=== PATIENT | female | born 1950 | race Caucasian/White ===

== ENCOUNTER → 2017-03-30 09:50 | Outpatient (CLI) | payer OTHER, SELFPAY | PROVIDERS: Family Provider Family Medicine; PCP Family Medicine; Visit Provider Urology | DX: N39.41 Urge incontinence (principal) ==

== ENCOUNTER → 2017-05-13 11:08 | Outpatient (CLI) | payer OTHER, SELFPAY ==
--- NOTE | 2017-05-13 13:35 | STRESSREP ---
Stress Test Report Treadmill EKG: Resting EKG: Normal sinus rhythm, normal axis, normal intervals, no evidence of previous myocardial infarction. Mill EKG: Patient exercised according to a Sriram protocol for 3 minutes and 0 seconds achieving a maximum workload of 4.60 Mets. Resting heart rate was initially 88 beats a minute and yee to a maximum of 1 5 5 bpm which represents 99% of the maximal age-predicted heart rate. Resting blood pressure was 140/84 and yee to maximum of 184/110. Test was terminated due to severe dyspnea. During exercise the patient's heart rate increased as expected. The patient developed dynamic downsloping inferolateral ST segment depression which is suspicious for ischemia. During recovery she developed inferolateral T-wave inversion which continued into 8 minutes into recovery. Rare PVC during exercise. Conclusions: Abnormal adequate treadmill EKG. Positive for ischemia by EKG criteria. Very poor exercise capacity for age. Test terminated due to severe dyspnea. Hypertensive blood pressure response to exercise. No anginal symptoms noted. Rare PVCs noted. Recommend clinical correlation or alternative mode of testing with imaging agent if indicated. Patient tolerated procedure well.
== END ==
PROVIDERS: Family Provider Family Medicine; PCP Family Medicine; Visit Provider Family Medicine
DX: R06.09 Other forms of dyspnea (principal); R06.02 Shortness of breath
CPT/HCPCS: 93017

== ENCOUNTER → 2017-05-17 12:26 | Outpatient (CLI) | payer OTHER, SELFPAY ==
--- NOTE | 2017-05-17 12:29 | RAD_ITS ---
STUDY: X-RAY CHEST REASON FOR EXAM: Female, 66 years old. Shortness of breath TECHNIQUE: Frontal and lateral views of the chest COMPARISON: None. FINDINGS: The lungs are clear. There are no pleural effusions. There is no pneumothorax. The heart is normal in size. The visualized osseous structures are within normal limits. RAD/Chest PA and Lateral IMPRESSION: No acute thoracic pathology. Electronically Signed: Stas Han, at 16:54 EDT Tel , Service support ,
[2017-05-17 13:28] LABS: Absolute Lymphocyte Count 1.06 X10^3/ul (0.83-4.51); Absolute Neutrophil Count 4.1 X10^3/uL (2.0-7.7); Basophil# 0.02 X10^3/uL; Basophil% 0.3 % (0-1); Eosinophil# 0.11 X10^3/uL; Eosinophils% 1.9 % (0-5); Hematocrit 39.8 % (37-47); Lymphocyte # 1.06 X10^3/ul (4.0); Lymphocyte % 18.5 % (19-41); Mean Corp Hgb Conc 32.7 g/gl (32-36); Mean Platelet Vol. 9.6 fl (6.2-12.0); Neutrophil # 4.13 X10^3/uL (2.7-7.7); Neutrophil % 72.1 % (47-70); Platelet Count 344 K/mm3 (150-450); RBC Distribution Width CV 12.8 % (11.6-14.6); Red Blood Count 4.06 M/mm3 (4.2-5.4); White Blood Count 5.7 K/mm3 (4.4-11.0)
[2017-05-17 13:29] LABS: POSITIVE COUNT NO; POSITIVE DIFFERENTIAL NO; POSITIVE MORPHOLOGY NO
[2017-05-17 13:32] LABS: Prothrombin Time (Protime)PT. 12.8 SECONDS (11.7-14.9)
[2017-05-17 13:33] LABS: Partial Thromboplast Time 27.1 Seconds (24.1-36.2)
[2017-05-17 13:45] LABS: Anion Gap 6 (5-15); BUN 19 mg/dL (7-18); BUN/Creat Ratio 21.2 RATIO (10-20); Calcium,Total 8.5 mg/dL (8.5-10.1); Chloride 100 mmol/L (98-107); EST Glomerular Filtration Rate 67 mL/min (>60); Est Glom Filt Rate - Afr Amer 81 mL/min (>60); Glucose 103 mg/dL (74-106); Potassium 4.2 mmol/L (3.5-5.1); Sodium Level 135 mmol/L (136-145)
== END ==
PROVIDERS: Family Provider Family Medicine; PCP Family Medicine; Visit Provider Internal Medicine Cardiovascular Disease
DX: R06.09 Other forms of dyspnea (principal); R94.39 Abnormal result of other cardiovascular function study; I10 Essential (primary) hypertension; E66.01 Morbid (severe) obesity due to excess calories; R94.31 Abnormal electrocardiogram [ECG] [EKG]; R06.02 Shortness of breath
CPT/HCPCS: 36415; 71046; 80048; 85025; 85610; 85730

== ENCOUNTER → 2017-05-18 10:46 | Outpatient (CLI) | payer OTHER, SELFPAY ==
--- NOTE | 2017-05-18 10:47 | ECHOD_ITS ---
Reason For Study: CHES PAIN Procedure This was a 2D Doppler, Color Flow transthoracic echocardiogram. Contrast injection was performed. Exam performed in department. Left Ventricle Normal size and thickness. The estimated ejection fraction is 40-45 %. Stage 1 diastolic dysfunction. Anterio-Basal: Mildly hypokinetic. Basal anteroseptal: Mildly hypokinetic. Mid- Anterior : Mildly hypokinetic. There are regional wall motion abnormalities as specified. Right Ventricle Normal size and thickness. Normal systolic function. Atria The left atrium is moderately enlarged. Normal right atrium. Normal atrial septum. Mitral Valve The mitral valve is structurally normal. No prolapse or stenosis seen. Tricuspid Valve Normal tricuspid valve. Trivial tricuspid valve insufficiency. Right ventricular systolic pressure estimated to be 26 mmHg. Aortic Valve Trisinus/trileaflet aortic valve. Pulmonic Valve Normal pulmonic valve. Trivial pulmonic valve insufficiency. Great Vessels Normal aortic root. Normal arch. Normal inferior vena cava. Inferior vena cava collapse with sniff. Pericardium/Pleural No pericardial effusion. Medication 22 gauge I.V. with prn adaptor inserted into right arm. Diluted definity 3ml given slow IV push to enhance endocardial definition. MMode/2D Measurements & Calculations LVIDd: 3.9 cm IVSd: 1.2 cm Ao root diam: 3.8 cm LVIDs: 3.1 cm LVPWd: 1.1 cm LA dimension: 3.9 cm RVDd: 3.7 cm FS: 19.6 % LAV(MOD-bp): 57.7 ml LVAd ap4: 39.5 cm2 SV(MOD-sp4): 66.9 ml LAV(MOD-bp) Indexed: 25.0 ml/m2 EDV(MOD-sp4): 138.5 ml LAV(MOD-sp2): 47.8 ml EDV(sp4-el): 145.1 ml LAV(MOD-sp4): 69.4 ml LVAs ap4: 27.1 cm2 ESV(MOD-sp4): 71.6 ml ESV(sp4-el): 73.4 ml EF(MOD-sp4): 48.3 % EF(sp4-el): 49.5 % SV(sp4-el): 71.8 ml LA A4 area: 22.0 cm2 RA A4 area: 13.0 cm2 Doppler Measurements & Calculations MV E max danyel: 66.5 cm/sec Ao V2 max: 132.5 cm/sec LV V1 max: 73.8 cm/sec MV A max danyel: 123.2 cm/sec Ao max P.0 mmHg LV V1 max P.2 mmHg MV E/A: 0.54 PA V2 max: 91.8 cm/sec TR max danyel: 230.9 cm/sec TR max P.3 mmHg Interpretation Summary The estimated ejection fraction is 40-45 %. Stage 1 diastolic dysfunction. There are regional wall motion abnormalities as specified. The left atrium is moderately enlarged. Trivial tricuspid valve insufficiency. Right ventricular systolic pressure estimated to be 26 mmHg. The study was technically difficult. There is no comparison study available. Contrast injection was performed. Ordering Physician: Ulises So Referring Physician: MATT URRUTIA Performed By: Ely Hager, SONYA, RVT
== END ==
PROVIDERS: Family Provider Family Medicine; PCP Family Medicine; Visit Provider Internal Medicine Cardiovascular Disease
DX: R94.31 Abnormal electrocardiogram [ECG] [EKG] (principal); I10 Essential (primary) hypertension; E66.01 Morbid (severe) obesity due to excess calories; R06.09 Other forms of dyspnea; R94.39 Abnormal result of other cardiovascular function study; I07.1 Rheumatic tricuspid insufficiency; G47.10 Hypersomnia, unspecified; K21.9 Gastro-esophageal reflux disease without esophagitis; R06.83 Snoring; R06.81 Apnea, not elsewhere classified
CPT/HCPCS: 93306; 95810; Q9957; A4216; C8929

== ENCOUNTER → 2017-05-19 06:44 | Day surgery (SDC) | payer OTHER, SELFPAY ==
[2017-05-18 09:44] VITALS: BMI 48.2
--- NOTE | 2017-05-19 08:30 | CL.D_ITS ---
Patient Name: NIA KIRAN Study Date: 05/19/2017 Performing: Ulises So MD Ht: 64.96 inches 165 cm : 1950 Wt: 291.01 lbs 132 kg Age: 66 Gender: female BSA: 2.32 PROCEDURE(S) PERFORMED RN90-LHV/LHC/COR/LV CLINICAL PROFILE AND INDICATIONS INDICATIONS: Unstable Angina Stress/Imaging Standard Exercise Stress Test: Yes Result: Positive Intermediate Risk Angina Classification Anginal Classification w/in 2 Weeks: CCS III CAD Presentations: Unstable angina. Comorbidities/Risk Factors: Hypertension CONCLUSIONS Normal coronary arteries Segmented LV systolic dysfunction- Mild The patient has normal pulmonary hemodynamics. RECOMMENDATIONS Management as per referring [employer] d/c plavix start exercise and weight loss program. Repeat echo in 6 months after exercise and BP control. DESCRIPTION OF PROCEDURE The patient arrived to the procedure lab. The risks and benefits of the procedure as well as a full d escription of our services here and current unavailability of surgical backup were fully explained to the patient and/or their significant other prior to the catheterization. The Timeout was completed, verifying the correct patient and procedure. The patient's procedural site was prepped and draped in the usual fashion. Local anesthetic was given subcutaneously to right groin region with Lidocaine 2%. Using a modified Seldinger technique, arterial access was obtained via the right femoral artery, a 4 Fr sheath was inserted Venous access was obtained via the right femoral vein, a 7Fr sheath was insert ed. A 7Fr thermal dilution catheter was inserted and right heart pressures were recorded, it was then advanced to PA position for cardiac outputs. Thermal dilution cardiac outputs were then recorded. O2 saturations were then obtained. The Thermal dilution catheter was then removed. Left Ventriculograph y was performed in ALVARADO projection using a 4 Fr. Pigtail catheter. LV to AO pullback pressures were th en recorded. Left Coronary Artery selective angiography was performed in multiple views using a 4 Fr. JL5 catheter. Right Coronary Artery selective angiography was then performed in multiple views using a 4 Fr. 3DRC catheter.The arterial sheath was pulled and manual compression applied until hemostasis is achieved. CORONARY ANGIOGRAPHY DOMINANCE: Co- Dominant LEFT HEART ASSESSMENT Left Ventricular Ejection Fraction: by LV Gram 50 % Anterior Hypokinesis - Mild Depressed Left Ventricular systolic function Normal Left Ventricular End Diastolic Pressure RIGHT HEART ASSESSMENT Thermal CO: 11.06 Thermal CI: 4.77 PW: 12/01 3 PA: 31/9 15 RV: 23/1 4 RA: 3/2 1 PVR: 87 SVR: 738 LEFT MAIN: Angiographically normal LEFT ANTERIOR DECENDING ARTERY: Angiographically normal CIRCUMFLEX ARTERY: Angiographically normal COMPLICATIONS No Complications PROCEDURE MEDICATIONS SUMMARY OF HEMODYNAMIC DATA Time AIR REST ECG 07:20:24 RA 3/ (1) SV 07:59:44 RV 23/1, 4 08:01:09 PW 12/01 (3) PV 08:01:46 PA 31/9 (15) PA 08:02:03 LV 140/-10, 3 08:07:48 LV 125/-11, 2 08:08:16 PW 11/10 (8) 08:08:16 LV 132/-13, 1 08:09:10 RV 24/-1, 2 08:09:10 LV 136/-12, 2 08:09:31 RV 25/2, 5 08:09:31 LV 136/-15, 3 08:10:41 LVp 140/-15, 2 08:10:46 AOp 134/76 (99) 08:10:51 AO 119/81 (103) SA 08:12:44 Type SV CO (l/m) CI (l/m/ HR Time AIR REST Thermal 124.30 11.06 4.77 89 07:20:24 Label % O2 Pres/Loc Time AIR REST AO 94 PV 08:16:34 PA 66 PA 08:16:46 Signed By Ulises So MD On 05/19/2017 08:30:01 Ulises So MD
[2017-05-19 10:51] LABS: Blood Gas Specimen Type VEN; VBG BASE EXCESS 3 mmol/L (-1.0-3.5); VBG Bicarbonate 28 mmol/L (22-26); VBG Oxygen Content 29 mmol/L (23-33); VBG PO2 33 mmHg (25-40); VBG SO2 63 % (50-70); VBG pCO2 44.3 mmHg (41-51)
[2017-05-19 10:51] LABS: Blood Gas Specimen Type VEN; VBG BASE EXCESS 2 mmol/L (-1.0-3.5); VBG Bicarbonate 27 mmol/L (22-26); VBG Oxygen Content 28 mmol/L (23-33); VBG PO2 37 mmHg (25-40); VBG SO2 70 % (50-70); VBG pCO2 42.9 mmHg (41-51)
[2017-05-19 10:51] LABS: Base Excess 2 mmol/L (-2 to +2); Bicarbonate 26.5 mmol/L (22-26); Blood Gas Specimen Type ART; PO2 71 mmHG (75-100); SO2 94 % (95-99); Total Carbon Dioxide 28 mmol/L; pH 7.43 (7.35-7.45)
== END ==
PROVIDERS: Family Provider Family Medicine; PCP Family Medicine; Visit Provider Internal Medicine Cardiovascular Disease
DX: R94.39 Abnormal result of other cardiovascular function study (principal); Z71.3 Dietary counseling and surveillance; I10 Essential (primary) hypertension; Z79.899 Other long term (current) drug therapy; Z79.82 Long term (current) use of aspirin; Z79.02 Long term (current) use of antithrombotics/antiplatelets; E66.01 Morbid (severe) obesity due to excess calories; M19.90 Unspecified osteoarthritis, unspecified site; K21.9 Gastro-esophageal reflux disease without esophagitis; F41.9 Anxiety disorder, unspecified; Z68.42 Body mass index [BMI] 45.0-49.9, adult
CPT/HCPCS: 82803; 93460; J7040; C1751; C1769; C1894; Q9967

== ENCOUNTER → 2017-06-15 22:47 | Outpatient (CLI) | payer OTHER, SELFPAY | PROVIDERS: Family Provider Family Medicine; PCP Family Medicine; Visit Provider Family Medicine | DX: G47.33 Obstructive sleep apnea (adult) (pediatric) (principal) | CPT/HCPCS: 95811 ==

== ENCOUNTER → 2018-06-29 10:13 | Outpatient (CLI) | payer MEDICARE, OTHER, SELFPAY ==
[2017-05-18 09:44] VITALS: BMI 48.2
[2018-06-29 11:24] LABS: EXAGEN MAILED SPECIMEN
[2018-06-29 12:24] LABS: ALB/GLOB Ratio 1.1 RATIO (0.9-2.4); AST(SGOT) 18 U/L (15-37); Alanine Aminotransfer ALT/SGPT 28 U/L (13-56); Albumin, Serum 3.7 g/dL (3.2-5.0); Alkaline Phosphatase 84 U/L (45-117); Anion Gap 8 (5-15); BUN 27 mg/dL (7-18); BUN/Creat Ratio 25.2 RATIO (10-20); Calcium,Total 8.2 mg/dL (8.5-10.1); Chloride 99 mmol/L (98-107); Creatinine, Serum 1.07 mg/dL (0.55-1.02); EST Glomerular Filtration Rate 55 mL/min (>60); Est Glom Filt Rate - Afr Amer 66 mL/min (>60); Globulin 3.5 g/dL (2.2-4.2); Glucose 101 mg/dL (74-106); Potassium 4.4 mmol/L (3.5-5.1); Protein, Total 7.2 g/dL (6.4-8.2); Sodium Level 135 mmol/L (136-145)
[2018-06-29 12:27] LABS: Absolute Lymphocyte Count 0.76 X10^3/ul (0.83-4.51); Absolute Neutrophil Count 2.8 X10^3/uL (2.0-7.7); Basophil# 0.02 X10^3/uL; Basophil% 0.5 % (0-1); Eosinophil# 0.12 X10^3/uL; Hematocrit 37.2 % (37-47); Hemoglobin 11.9 g/dl (12.0-15.0); Lymphocyte # 0.76 X10^3/ul (4.0); Mean Corpuscular Hgb 31.2 pg (27.0-32.0); Mean Corpuscular Volume 97.4 fL (81-99); Mean Platelet Vol. 9.3 fl (6.2-12.0); Monocyte# 0.28 X10^3/uL; Neutrophil # 2.81 X10^3/uL (2.7-7.7); Neutrophil % 70.2 % (47-70); Platelet Count 339 K/mm3 (150-450); RBC Distribution Width CV 12.5 % (11.6-14.6); RBC Distribution Width SD 42.7 fl (35.1-43.9); Red Blood Count 3.82 M/mm3 (4.2-5.4)
[2018-06-29 12:37] LABS: Color, Urine Yellow (Yellow); Glucose, Dipstick Normal (Normal); Ketone-Dipstick Negative (Negative); Leukocyte Esterase-Dipstick 25 /ul (Negative); Nitrite-Dipstick Negative (Negative); Occult Blood-Urine Negative /ul (Negative); Protein-Dipstick Negative (Negative); Specific Gravity, Urine 1.015 (1.002-1.030); Urine Bilirubin Dipstick Negative (Negative); Urine Clarity Sl. Cloudy (Clear); Urine Urobilinogen 1 mg/dl (Normal)
[2018-06-29 12:41] LABS: Protein, Urine (Random) 6.8 mg/dL (<11.9); Protein:Creat Ratio 67 mg/g CRE (0-200)
[2018-06-29 12:57] LABS: POSITIVE COUNT NO; POSITIVE DIFFERENTIAL NO; POSITIVE MORPHOLOGY NO
[2018-07-01 12:57] LABS: HEPATITIS B SURFACE AG Negative (Negative); Hep B Surface Antibodies Non Reactive (.); Hep C Antibodies <0.1 s/co ratio (0.0-0.9)
== END ==
PROVIDERS: Family Provider Family Medicine; PCP Family Medicine; Referring Provider Internal Medicine Rheumatology; Visit Provider Internal Medicine Rheumatology
DX: M05.79 Rheumatoid arthritis with rheumatoid factor of multiple sites without organ or systems involvement (principal); R76.8 Other specified abnormal immunological findings in serum; M17.0 Bilateral primary osteoarthritis of knee; M21.40 Flat foot [pes planus] (acquired), unspecified foot; K44.9 Diaphragmatic hernia without obstruction or gangrene; I10 Essential (primary) hypertension; G47.33 Obstructive sleep apnea (adult) (pediatric); N32.81 Overactive bladder; K21.9 Gastro-esophageal reflux disease without esophagitis; F32.89 Other specified depressive episodes; F41.9 Anxiety disorder, unspecified
CPT/HCPCS: 36415; 80053; 81002; 82570; 84156; 85025; 86706; 86803; 87340

== ENCOUNTER → 2018-07-14 12:12 | Outpatient (CLI) | payer MEDICARE, OTHER, SELFPAY ==
[2017-05-18 09:44] VITALS: BMI 48.2
--- NOTE | 2018-07-14 12:17 | RAD_ITS ---
STUDY: X-RAY - LEFT FOOT CLINICAL: Female, 67 years old. Left foot pain TECHNIQUE: 3 view(s) of the foot. Weight-bearing COMPARISON: None. FINDINGS: No acute fracture or dislocation. Lisfranc interval appears intact. Mild age-related degenerative changes. Mild pes planus. Small plantar spur and posterior calcaneal enthesophyte. Possible partial talocalcaneal fusion. Tibiotalar degenerative changes. Minimal soft tissue swelling RAD/Foot min 3 Views IMPRESSION: As above Electronically Signed: Joel Delvalle DO at 10:47 EDT Tel , Service support ,
== END ==
PROVIDERS: Family Provider Family Medicine; PCP Family Medicine; Referring Provider Podiatrist; Visit Provider Podiatrist
DX: M19.90 Unspecified osteoarthritis, unspecified site (principal)
CPT/HCPCS: 73630

== ENCOUNTER → 2018-09-13 10:46 | Outpatient (CLI) | payer MEDICARE, OTHER, SELFPAY ==
[2017-05-18 09:44] VITALS: BMI 48.2
[2018-09-13 12:29] LABS: Absolute Lymphocyte Count 0.78 X10^3/uL (0.83-4.51); Absolute Neutrophil Count 4.3 X10^3/uL (2.0-7.7); Basophil# 0.03 X10^3/uL; Basophil% 0.5 % (0-1); Eosinophil# 0.09 X10^3/uL; Eosinophils% 1.6 % (0-5); Hematocrit 35.9 % (37-47); Lymphocyte # 0.78 X10^3/ul (4.0); Lymphocyte % 13.9 % (19-41); Mean Corp Hgb Conc 33.4 g/dL (32-36); Mean Corpuscular Hgb 33.5 pg (27.0-32.0); Mean Corpuscular Volume 100.3 fL (81-99); Monocyte# 0.35 X10^3/uL; Monocyte% 6.3 % (0-10); NRBC Flagged by Analyzer 0 % (0-5); Neutrophil # 4.32 X10^3/uL (2.7-7.7); Neutrophil % 77.2 % (47-70); Platelet Count 400 K/mm3 (150-450); RBC Distribution Width CV 12.7 % (11.6-14.6); RBC Distribution Width SD 45.3 fl (35.1-43.9); Red Blood Count 3.58 M/mm3 (4.2-5.4); White Blood Count 5.6 K/mm3 (4.4-11.0)
[2018-09-13 12:48] LABS: ALB/GLOB Ratio 0.8 RATIO (0.9-2.4); AST(SGOT) 11 U/L (15-37); Alanine Aminotransfer ALT/SGPT 24 U/L (13-56); Albumin, Serum 3.3 g/dL (3.2-5.0); Alkaline Phosphatase 93 U/L (45-117); Anion Gap 8 (5-15); BUN 21 mg/dL (7-18); BUN/Creat Ratio 23.4 RATIO (10-20); Calcium,Total 8.8 mg/dL (8.5-10.1); Chloride 99 mmol/L (98-107); EST Glomerular Filtration Rate 67 mL/min (>60); Est Glom Filt Rate - Afr Amer 81 mL/min (>60); Globulin 3.9 g/dL (2.2-4.2); Glucose 103 mg/dL (74-106); Potassium 4.3 mmol/L (3.5-5.1); Protein, Total 7.2 g/dL (6.4-8.2); Sodium Level 136 mmol/L (136-145)
== END ==
PROVIDERS: Family Provider Family Medicine; PCP Family Medicine; Referring Provider Internal Medicine Rheumatology; Visit Provider Internal Medicine Rheumatology
DX: M05.79 Rheumatoid arthritis with rheumatoid factor of multiple sites without organ or systems involvement (principal); M17.0 Bilateral primary osteoarthritis of knee
CPT/HCPCS: 36415; 80053; 85025

== ENCOUNTER → 2019-03-13 12:57 | Outpatient (CLI) | payer MEDICARE, OTHER, SELFPAY ==
[2017-05-18 09:44] VITALS: BMI 48.2
[2019-03-13 14:04] LABS: Absolute Lymphocyte Count 0.77 X10^3/uL (0.83-4.51); Absolute Neutrophil Count 3.9 X10^3/uL (2.0-7.7); Basophil# 0.03 X10^3/uL; Basophil% 0.6 % (0-1); Eosinophils% 1.9 % (0-5); Hematocrit 38.2 % (37-47); Hemoglobin 12.3 g/dL (12.0-15.0); Lymphocyte # 0.77 X10^3/ul (4.0); Lymphocyte % 14.5 % (19-41); Mean Corp Hgb Conc 32.2 g/dL (32-36); Mean Corpuscular Hgb 31.9 pg (27.0-32.0); Mean Platelet Vol. 8.7 fl (6.2-12.0); Monocyte# 0.45 X10^3/uL; Monocyte% 8.5 % (0-10); NRBC Flagged by Analyzer 0 % (0-5); Neutrophil # 3.93 X10^3/uL (2.7-7.7); Neutrophil % 73.9 % (47-70); Platelet Count 396 K/mm3 (150-450); RBC Distribution Width CV 13.7 % (11.6-14.6); RBC Distribution Width SD 48.5 fl (35.1-43.9); Red Blood Count 3.86 M/mm3 (4.2-5.4); White Blood Count 5.3 K/mm3 (4.4-11.0)
[2019-03-13 14:45] LABS: ALB/GLOB Ratio 0.9 RATIO (0.9-2.4); AST(SGOT) 15 U/L (15-37); Alanine Aminotransfer ALT/SGPT 25 U/L (13-56); Albumin, Serum 3.6 g/dL (3.2-5.0); Alkaline Phosphatase 87 U/L (45-117); Anion Gap 5 (5-15); BUN 19 mg/dL (7-18); BUN/Creat Ratio 20.5 RATIO (10-20); Chloride 101 mmol/L (98-107); Creatinine, Serum 0.93 mg/dL (0.55-1.02); EST Glomerular Filtration Rate 64 mL/min (>60); Est Glom Filt Rate - Afr Amer 78 mL/min (>60); Globulin 3.9 g/dL (2.2-4.2); Glucose 109 mg/dL (74-106); Potassium 4.2 mmol/L (3.5-5.1); Protein, Total 7.5 g/dL (6.4-8.2); Sodium Level 134 mmol/L (136-145)
== END ==
PROVIDERS: Family Provider Family Medicine; PCP Family Medicine; Referring Provider Internal Medicine Rheumatology; Visit Provider Internal Medicine Rheumatology
DX: M05.79 Rheumatoid arthritis with rheumatoid factor of multiple sites without organ or systems involvement (principal); M17.0 Bilateral primary osteoarthritis of knee; M21.40 Flat foot [pes planus] (acquired), unspecified foot; I10 Essential (primary) hypertension; G47.33 Obstructive sleep apnea (adult) (pediatric); N32.81 Overactive bladder; K44.9 Diaphragmatic hernia without obstruction or gangrene; K21.9 Gastro-esophageal reflux disease without esophagitis; F32.89 Other specified depressive episodes; F41.9 Anxiety disorder, unspecified; Z79.899 Other long term (current) drug therapy
CPT/HCPCS: 36415; 80053; 85025

== ENCOUNTER 2019-05-06 23:19 | Emergency (ER) | payer MEDICARE, OTHER, SELFPAY ==
[2019-05-06 23:20] VITALS: BP 115/67; PULSE 103; RESP 18; TEMP 37.1; O2SAT 95; BMI 48.9
--- NOTE | 2019-05-06 23:33 | CT_ITS ---
STUDY: CT BRAIN WITHOUT CONTRAST REASON FOR EXAM: Female, 68 years old. RIGHT SIDE POSTERIOR HEAD PAIN SINCE WEDNESDAY. NKI RADIATION DOSAGE (If Supplied By Facility): CTDIvol = ( 44.99 ) mGy, DLP = ( 832.67 ) mGycm TECHNIQUE: Transaxial CT imaging of the brain was performed without administration of intravenous contrast material. Individualized dose optimization techniques were used for this CT. COMPARISON: No relevant priors. FINDINGS: Normal soft tissue structures. Normal calvarium. Normal size ventricles and extra-axial spaces for the patient''s age. Normal white matter tracts of the cerebral hemispheres. Normal basal ganglia and thalami. Normal brainstem. Normal cerebellum. There is atherosclerotic calcification of the cavernous carotid arteries. There is no intracranial hemorrhage. There are no findings of an acute ischemic infarction. Normal visualized paranasal sinuses. CT/Brain/Head without Contrast IMPRESSION: Mild chronic involutional changes of the brain. No demonstrated acute intracranial process. Electronically Signed: Humberto Gomez MD at 0:29 EST , Service support ,
--- NOTE | 2019-05-06 23:35 | ED.VISSUMM ---
- ER Visit Summary Date of Service: 05/06/19 Chief Complaint: Right posterior scalp head pain History of Present Illness: The patient is a 68 F who hypertension. And multiple prior surgeries. Patient states on Wednesday since then she has had intermittent right posterior scalp pain. It is a sharp shooting pain. She denies any prior history. No trauma. She is on no blood thinners other than aspirin. She denies any neurological symptoms. States she is never had anything like this before. She saw her primary care physician on Wednesday. Without a specific diagnosis. Physical Examination: Older female no acute distress vital signs are stable afebrile. H EENT exam unremarkable. Pupils round reactive laser motions are intact. No facial droop. Normal speech. There is no signs of trauma to her face or scalp. The pain is in the right posterior scalp but there is no abnormality. There is no redness or swelling. No signs of trauma. No inflammation. No reproducible pain. Neck nontender no lymphadenopathy. No meningismus. Lungs clear to auscultation. Heart regular rhythm no murmur. Abdomen soft nontender normal bowel sounds no peritoneal signs. Extremities moves all 4. Neurovascular intact. 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 Dorsi plantarflexion intact. Fingertip to nose within normal limits. Neurologic exam normal NIH is 0. Test Results: CAT scan of the brain as read by the radiologist and reviewed by me shows no acute abnormality. Emergency Department Course and Treatment: Patient's right posterior scalp pain appears to be from a neuralgia. It comes and goes. Her neurologic exam is normal. Repeat exam at 00 30 8 AM patient is doing well. No change. She and I discussed her CAT scan results. She will be started on prednisone and follow-up with her primary care physician. Treatment Plan: Continue her Ultram for pain. Follow-up with primary care physician. Disposition: Discharge Impression: Acute scalp and head pain of uncertain etiology Suspect acute neuralgia This note was generated with [employer] dictation software. It may contain incorrect words, spelling, and punctuation that were not noted in review of the chart prior to signing ED Disposition - Plan for ED Patient: Disposition: Home or Assisted Living Instructions: HEADACHE, Unspecified Referrals: Braulio Ca MD [Primary Care Provider] - 3-5 Days if not improving Additional Instructions: This most likely is inflammation of a nerve in your posterior scalp. Follow-up with your doctor if not improving then start you on a medication called Neurontin.
--- NOTE | 2019-05-06 23:37 | ED.DEP ---
ED Disposition - Plan for ED Patient: Disposition: Home or Assisted Living Instructions: HEADACHE, Unspecified Referrals: Braulio Ca MD [Primary Care Provider] - 3-5 Days if not improving Additional Instructions: This most likely is inflammation of a nerve in your posterior scalp. Follow-up with your doctor if not improving then start you on a medication called Neurontin.
--- NOTE | 2019-05-07 00:41 | ED.DEP ---
ED Disposition - Plan for ED Patient: Disposition: Home or Assisted Living Prescriptions: Prednisone [Deltasone] 40 mg PO DAILY 7 Days tab Prescription Printed Referrals: Braulio Ca MD [Primary Care Provider] - 3-5 Days if not improving Additional Instructions: This most likely is inflammation of a nerve in your posterior scalp. Follow-up with your doctor if not improving on the prednisone you may have to start another medication such as Neurontin.
[2019-05-07] MEDS: predniSONE 20 MG Tablet 60 MG PO (00:48)
== END 2019-05-07 00:50 | disposition home or self-care (01) ==
LOC: ED 23:55
PROVIDERS: Emergency Provider Emergency Medicine; PCP Family Medicine
DX: M79.2 Neuralgia and neuritis, unspecified (principal); I10 Essential (primary) hypertension; Z79.82 Long term (current) use of aspirin; Z79.899 Other long term (current) drug therapy
CPT/HCPCS: 70450; 99283

== ENCOUNTER → 2019-05-29 14:52 | Outpatient (CLI) | payer MEDICARE, OTHER, SELFPAY ==
[2019-05-06 23:20] VITALS: BMI 48.9
[2019-05-29 17:24] LABS: Absolute Lymphocyte Count 0.75 X10^3/uL (0.83-4.51); Absolute Neutrophil Count 4.3 X10^3/uL (2.0-7.7); Basophil# 0.03 X10^3/uL; Basophil% 0.5 % (0-1); Eosinophil# 0.11 X10^3/uL; Hematocrit 35.1 % (37-47); Hemoglobin 11.9 g/dL (12.0-15.0); Lymphocyte # 0.75 X10^3/ul (4.0); Lymphocyte % 13.5 % (19-41); Mean Corp Hgb Conc 33.9 g/dL (32-36); Mean Corpuscular Hgb 33.6 pg (27.0-32.0); Mean Corpuscular Volume 99.2 fL (81-99); Mean Platelet Vol. 9.3 fl (6.2-12.0); Monocyte# 0.38 X10^3/uL; Monocyte% 6.8 % (0-10); NRBC Flagged by Analyzer 0 % (0-5); Neutrophil # 4.26 X10^3/uL (2.7-7.7); Neutrophil % 76.8 % (47-70); Platelet Count 346 K/mm3 (150-450); RBC Distribution Width CV 14.7 % (11.6-14.6); RBC Distribution Width SD 52.7 fl (35.1-43.9); Red Blood Count 3.54 M/mm3 (4.2-5.4); White Blood Count 5.6 K/mm3 (4.4-11.0)
[2019-05-29 17:41] LABS: ALB/GLOB Ratio 0.9 RATIO (0.9-2.4); AST(SGOT) 16 U/L (15-37); Alanine Aminotransfer ALT/SGPT 29 U/L (13-56); Albumin, Serum 3.4 g/dL (3.2-5.0); Alkaline Phosphatase 93 U/L (45-117); Anion Gap 6 (5-15); BUN 14 mg/dL (7-18); BUN/Creat Ratio 14.3 RATIO (10-20); Calcium,Total 8.5 mg/dL (8.5-10.1); Chloride 99 mmol/L (98-107); Creatinine, Serum 0.98 mg/dL (0.55-1.02); EST Glomerular Filtration Rate 61 mL/min (>60); Est Glom Filt Rate - Afr Amer 73 mL/min (>60); Globulin 3.8 g/dL (2.2-4.2); Glucose 116 mg/dL (74-106); Potassium 3.6 mmol/L (3.5-5.1); Protein, Total 7.2 g/dL (6.4-8.2); Sodium Level 134 mmol/L (136-145)
== END ==
PROVIDERS: PCP Family Medicine; Referring Provider Internal Medicine Rheumatology; Visit Provider Internal Medicine Rheumatology
DX: M05.79 Rheumatoid arthritis with rheumatoid factor of multiple sites without organ or systems involvement (principal); M17.0 Bilateral primary osteoarthritis of knee; M21.40 Flat foot [pes planus] (acquired), unspecified foot; I10 Essential (primary) hypertension; K21.9 Gastro-esophageal reflux disease without esophagitis; K44.9 Diaphragmatic hernia without obstruction or gangrene; N32.81 Overactive bladder; G47.33 Obstructive sleep apnea (adult) (pediatric); F32.89 Other specified depressive episodes; F41.9 Anxiety disorder, unspecified; Z79.899 Other long term (current) drug therapy
CPT/HCPCS: 36415; 80053; 85025

== ENCOUNTER → 2019-08-22 09:40 | Outpatient (CLI) | payer MEDICARE, OTHER, SELFPAY ==
[2019-08-22 12:44] LABS: Absolute Lymphocyte Count 0.94 X10^3/uL (0.83-4.51); Absolute Neutrophil Count 3.2 X10^3/uL (2.0-7.7); Basophil# 0.03 X10^3/uL; Basophil% 0.6 % (0-1); Eosinophil# 0.09 X10^3/uL; Eosinophils% 1.9 % (0-5); Hematocrit 38.8 % (37-47); Hemoglobin 12.3 g/dL (12.0-15.0); Lymphocyte # 0.94 X10^3/ul (4.0); Lymphocyte % 20.3 % (19-41); Mean Corp Hgb Conc 31.7 g/dL (32-36); Mean Corpuscular Hgb 32.5 pg (27.0-32.0); Mean Corpuscular Volume 102.4 fL (81-99); Monocyte# 0.39 X10^3/uL; Monocyte% 8.4 % (0-10); NRBC Flagged by Analyzer 0 % (0-5); Neutrophil # 3.15 X10^3/uL (2.7-7.7); Neutrophil % 68.4 % (47-70); Platelet Count 382 K/mm3 (150-450); RBC Distribution Width CV 14.4 % (11.6-14.6); RBC Distribution Width SD 53.6 fl (35.1-43.9); Red Blood Count 3.79 M/mm3 (4.2-5.4); White Blood Count 4.6 K/mm3 (4.4-11.0)
[2019-08-22 13:00] LABS: ALB/GLOB Ratio 0.9 RATIO (0.9-2.4); AST(SGOT) 17 U/L (15-37); Alanine Aminotransfer ALT/SGPT 34 U/L (13-56); Albumin, Serum 3.4 g/dL (3.2-5.0); Alkaline Phosphatase 89 U/L (45-117); Anion Gap 8 (5-15); BUN 19 mg/dL (7-18); BUN/Creat Ratio 21.1 RATIO (10-20); Calcium,Total 8.8 mg/dL (8.5-10.1); Chloride 102 mmol/L (98-107); EST Glomerular Filtration Rate 67 mL/min (>60); Est Glom Filt Rate - Afr Amer 81 mL/min (>60); Globulin 3.9 g/dL (2.2-4.2); Glucose 104 mg/dL (74-106); Protein, Total 7.3 g/dL (6.4-8.2); Sodium Level 137 mmol/L (136-145)
== END ==
PROVIDERS: PCP Family Medicine; Referring Provider Internal Medicine Rheumatology; Visit Provider Internal Medicine Rheumatology
DX: M05.79 Rheumatoid arthritis with rheumatoid factor of multiple sites without organ or systems involvement (principal); M17.0 Bilateral primary osteoarthritis of knee; M21.40 Flat foot [pes planus] (acquired), unspecified foot; Z79.899 Other long term (current) drug therapy
CPT/HCPCS: 36415; 80053; 85025

== ENCOUNTER → 2019-10-17 10:46 | Outpatient (CLI) | payer MEDICARE, OTHER, SELFPAY ==
[2019-10-17 12:30] LABS: Absolute Lymphocyte Count 1.18 X10^3/uL (0.83-4.51); Absolute Neutrophil Count 5.6 X10^3/uL (2.0-7.7); Basophil# 0.02 X10^3/uL; Basophil% 0.3 % (0-1); Eosinophils% 1.4 % (0-5); Hematocrit 38.2 % (37-47); Hemoglobin 12.4 g/dL (12.0-15.0); Lymphocyte # 1.18 X10^3/ul (4.0); Lymphocyte % 15.9 % (19-41); Mean Corp Hgb Conc 32.5 g/dL (32-36); Mean Corpuscular Hgb 32.4 pg (27.0-32.0); Mean Corpuscular Volume 99.7 fL (81-99); Mean Platelet Vol. 9.3 fl (6.2-12.0); Monocyte% 6.8 % (0-10); NRBC Flagged by Analyzer 0 % (0-5); Neutrophil # 5.57 X10^3/uL (2.7-7.7); Neutrophil % 75.2 % (47-70); Platelet Count 391 K/mm3 (150-450); RBC Distribution Width CV 13.7 % (11.6-14.6); RBC Distribution Width SD 49.4 fl (35.1-43.9); Red Blood Count 3.83 M/mm3 (4.2-5.4); White Blood Count 7.4 K/mm3 (4.4-11.0)
[2019-10-17 12:48] LABS: ALB/GLOB Ratio 0.9 RATIO (0.9-2.4); AST(SGOT) 16 U/L (15-37); Alanine Aminotransfer ALT/SGPT 28 U/L (13-56); Albumin, Serum 3.6 g/dL (3.2-5.0); Alkaline Phosphatase 84 U/L (45-117); Anion Gap 5 (5-15); BUN 17 mg/dL (7-18); BUN/Creat Ratio 19.9 RATIO (10-20); Calcium,Total 8.8 mg/dL (8.5-10.1); Chloride 100 mmol/L (98-107); Creatinine, Serum 0.85 mg/dL (0.55-1.02); EST Glomerular Filtration Rate 71 mL/min (>60); Est Glom Filt Rate - Afr Amer 86 mL/min (>60); Globulin 3.8 g/dL (2.2-4.2); Glucose 103 mg/dL (74-106); Potassium 3.9 mmol/L (3.5-5.1); Protein, Total 7.4 g/dL (6.4-8.2); Sodium Level 136 mmol/L (136-145)
== END ==
PROVIDERS: PCP Family Medicine; Referring Provider Internal Medicine Rheumatology; Visit Provider Internal Medicine Rheumatology
DX: M05.79 Rheumatoid arthritis with rheumatoid factor of multiple sites without organ or systems involvement (principal); M17.0 Bilateral primary osteoarthritis of knee; M21.40 Flat foot [pes planus] (acquired), unspecified foot; K21.9 Gastro-esophageal reflux disease without esophagitis; K44.9 Diaphragmatic hernia without obstruction or gangrene; N32.81 Overactive bladder; I10 Essential (primary) hypertension; G47.33 Obstructive sleep apnea (adult) (pediatric); F32.89 Other specified depressive episodes; F41.9 Anxiety disorder, unspecified; Z79.899 Other long term (current) drug therapy
CPT/HCPCS: 36415; 80053; 85025

== ENCOUNTER → 2020-01-01 11:04 | Outpatient (CLI) | payer MEDICARE, OTHER, SELFPAY ==
[2020-01-01 12:30] LABS: Absolute Lymphocyte Count 1.26 X10^3/uL (0.83-4.51); Absolute Neutrophil Count 5.6 X10^3/uL (2.0-7.7); Basophil# 0.04 X10^3/uL; Basophil% 0.5 % (0-1); Eosinophil# 0.11 X10^3/uL; Eosinophils% 1.5 % (0-5); Hematocrit 39.3 % (37-47); Hemoglobin 12.6 g/dL (12.0-15.0); Lymphocyte # 1.26 X10^3/ul (4.0); Lymphocyte % 16.8 % (19-41); Mean Corp Hgb Conc 32.1 g/dL (32-36); Mean Corpuscular Hgb 32.9 pg (27.0-32.0); Mean Corpuscular Volume 102.6 fL (81-99); Mean Platelet Vol. 9.1 fl (6.2-12.0); Monocyte# 0.49 X10^3/uL; Monocyte% 6.5 % (0-10); NRBC Flagged by Analyzer 0 % (0-5); Neutrophil # 5.57 X10^3/uL (2.7-7.7); Neutrophil % 74.2 % (47-70); Platelet Count 345 K/mm3 (150-450); RBC Distribution Width CV 14.3 % (11.6-14.6); RBC Distribution Width SD 52.8 fl (35.1-43.9); Red Blood Count 3.83 M/mm3 (4.2-5.4); White Blood Count 7.5 K/mm3 (4.4-11.0)
[2020-01-01 12:59] LABS: ALB/GLOB Ratio 0.9 RATIO (0.9-2.4); AST(SGOT) 15 U/L (15-37); Alanine Aminotransfer ALT/SGPT 27 U/L (13-56); Albumin, Serum 3.4 g/dL (3.2-5.0); Alkaline Phosphatase 88 U/L (45-117); Anion Gap 6 (5-15); BUN 23 mg/dL (7-18); BUN/Creat Ratio 25.8 RATIO (10-20); Calcium,Total 8.6 mg/dL (8.5-10.1); Chloride 100 mmol/L (98-107); Creatinine, Serum 0.89 mg/dL (0.55-1.02); EST Glomerular Filtration Rate 67 mL/min (>60); Est Glom Filt Rate - Afr Amer 81 mL/min (>60); Globulin 3.7 g/dL (2.2-4.2); Glucose 91 mg/dL (74-106); Protein, Total 7.1 g/dL (6.4-8.2); Sodium Level 134 mmol/L (136-145)
== END ==
PROVIDERS: PCP Family Medicine; Referring Provider Internal Medicine Rheumatology; Visit Provider Internal Medicine Rheumatology
DX: M05.79 Rheumatoid arthritis with rheumatoid factor of multiple sites without organ or systems involvement (principal); M15.9 Polyosteoarthritis, unspecified; M21.40 Flat foot [pes planus] (acquired), unspecified foot; Z79.899 Other long term (current) drug therapy
CPT/HCPCS: 36415; 80053; 85025

== ENCOUNTER → 2020-03-21 09:41 | Outpatient (CLI) | payer MEDICARE, OTHER, SELFPAY ==
[2020-03-21 12:17] LABS: Absolute Lymphocyte Count 1.04 X10^3/uL (0.83-4.51); Absolute Neutrophil Count 5.1 X10^3/uL (2.0-7.7); Basophil# 0.03 X10^3/uL; Basophil% 0.4 % (0-1); Eosinophil# 0.14 X10^3/uL; Hemoglobin 12.8 g/dL (12.0-15.0); Lymphocyte # 1.04 X10^3/ul (4.0); Mean Corp Hgb Conc 31.2 g/dL (32-36); Mean Corpuscular Volume 102.5 fL (81-99); Monocyte# 0.59 X10^3/uL; Monocyte% 8.5 % (0-10); NRBC Flagged by Analyzer 0 % (0-5); Neutrophil # 5.11 X10^3/uL (2.7-7.7); Neutrophil % 73.7 % (47-70); Platelet Count 452 K/mm3 (150-450); RBC Distribution Width CV 13.9 % (11.6-14.6); RBC Distribution Width SD 52.5 fl (35.1-43.9); White Blood Count 6.9 K/mm3 (4.4-11.0)
[2020-03-21 12:50] LABS: ALB/GLOB Ratio 0.9 RATIO (0.9-2.4); AST(SGOT) 17 U/L (15-37); Alanine Aminotransfer ALT/SGPT 33 U/L (13-56); Albumin, Serum 3.6 g/dL (3.2-5.0); Alkaline Phosphatase 92 U/L (45-117); Anion Gap 7 (5-15); BUN 20 mg/dL (7-18); BUN/Creat Ratio 21.2 RATIO (10-20); Calcium,Total 8.8 mg/dL (8.5-10.1); Chloride 104 mmol/L (98-107); Creatinine, Serum 0.94 mg/dL (0.55-1.02); EST Glomerular Filtration Rate 63 mL/min (>60); Est Glom Filt Rate - Afr Amer 76 mL/min (>60); Globulin 3.9 g/dL (2.2-4.2); Glucose 91 mg/dL (74-106); Potassium 3.5 mmol/L (3.5-5.1); Protein, Total 7.5 g/dL (6.4-8.2); Sodium Level 138 mmol/L (136-145)
== END ==
PROVIDERS: PCP Family Medicine; Referring Provider Internal Medicine Rheumatology; Visit Provider Internal Medicine Rheumatology
DX: M05.79 Rheumatoid arthritis with rheumatoid factor of multiple sites without organ or systems involvement (principal); M17.0 Bilateral primary osteoarthritis of knee; M21.40 Flat foot [pes planus] (acquired), unspecified foot; I10 Essential (primary) hypertension; N32.81 Overactive bladder; G47.33 Obstructive sleep apnea (adult) (pediatric); K21.9 Gastro-esophageal reflux disease without esophagitis; K44.9 Diaphragmatic hernia without obstruction or gangrene; F32.89 Other specified depressive episodes; F41.9 Anxiety disorder, unspecified; Z79.899 Other long term (current) drug therapy
CPT/HCPCS: 36415; 80053; 85025

== ENCOUNTER 2020-05-10 10:13 | Outpatient (RCR) | payer MEDICARE, OTHER, SELFPAY ==
[2020-05-10] MEDS: COVID-19 VACC, MRNA(PFIZER)/PF 30 MCG/0.3 ML SYRINGE IM (16:04)
[2020-05-31] MEDS: COVID-19 VACC, MRNA(PFIZER)/PF 30 MCG/0.3 ML SYRINGE IM (15:46)
== END 2020-08-06 23:59 ==
LOC: IMMUN 10:13
PROVIDERS: PCP Family Medicine; Visit Provider Family Medicine
DX: Z23 Encounter for immunization (principal)
CPT/HCPCS: 0001A; 0002A; 91300

== ENCOUNTER → 2021-07-10 | Outpatient (CLI) | payer MEDICARE, OTHER, SELFPAY ==
[2021-07-10 15:57] LABS: Absolute Lymphocyte Count 1.07 X10^3/uL (0.83-4.51); Absolute Neutrophil Count 2.6 X10^3/uL (2.0-7.7); Basophil# 0.04 X10^3/uL; Eosinophil# 0.08 X10^3/uL; Eosinophils% 1.9 % (0-5); Hematocrit 38.7 % (37-47); Hemoglobin 12.6 g/dL (12.0-15.0); Lymphocyte # 1.07 X10^3/ul (0.83-4.51); Mean Corp Hgb Conc 32.6 g/dL (32-36); Mean Corpuscular Hgb 31.9 pg (27.0-32.0); Monocyte# 0.34 X10^3/uL; Monocyte% 8.3 % (0-10); NRBC Flagged by Analyzer 0 % (0-5); Neutrophil # 2.58 X10^3/uL (2.7-7.7); Neutrophil % 62.6 % (47-70); Platelet Count 357 K/mm3 (150-450); RBC Distribution Width CV 12.7 % (11.6-14.6); RBC Distribution Width SD 45.9 fl (35.1-43.9); Red Blood Count 3.95 M/mm3 (4.2-5.4); White Blood Count 4.1 K/mm3 (4.4-11.0)
== END | disposition home or self-care (01) ==
PROVIDERS: PCP Family Medicine; Visit Provider Internal Medicine Rheumatology
DX: D72.819 Decreased white blood cell count, unspecified (principal)
CPT/HCPCS: 36415; 85025

== ENCOUNTER → 2022-01-16 | Outpatient (CLI) | payer MEDICARE, OTHER, SELFPAY ==
--- NOTE | 2022-01-16 11:30 | MRI_ITS ---
STUDY: MRI RIGHT SHOULDER REASON FOR EXAM: Female, 71 years old. Right shoulder pain. TECHNIQUE: Standardized fat and water weighted pulse sequences were obtained in all 3 orthogonal planes. COMPARISON: None. FINDINGS: Supraspinatus tendinosis with articular surface fraying without a full-thickness tear (coronal series 5 images 11-15). Infraspinatus tendinosis without a full-thickness tear (coronal series 5 images 6-10). Subscapularis tendinosis with thickening and increased signal intensity without a full-thickness tear (axial series 3 images 8-13). Normal teres minor tendon. Normal supraspinatus muscle. Normal infraspinatus muscle. Normal subscapularis muscle. Normal teres minor muscle. Mild arthrosis of the glenohumeral joint with a small glenohumeral joint effusion (axial series 3 images 8-14). Cystic change in the anterior and lateral aspect of the head (axial series 3 image 8). Normal biceps labral complex. Normal intracapsular long biceps tendon. Nondisplaced superior labral tear (coronal series 5 images 9-13). Nondisplaced tear of the posterior and inferior glenoid labrum with a intra-labral cyst (axial series 3 image 13). Normal capsulo- ligamentous complex. Normal rotator interval. AC joint hypertrophy with AC joint effusion and substantial narrowing of the subacromial space (coronal series 5 images 8-15). There is a Type II morphology (curved), with a neutral orientation. Small amount of fluid in the subacromial-subdeltoid bursa (coronal series 5 images 8-12). Normal visualized coracohumeral and coracoacromial ligaments. Normal quadrilateral space. Normal axillary space. Normal deltoid muscle. Normal trapezius muscle. MRI/Upper Ext Joint Only(Routine) IMPRESSION: Supraspinatus, infraspinatus and subscapularis tendinosis. No full-thickness tear. Mild arthrosis of the glenohumeral joint. Cystic change in the humeral head. Tears of the superior and inferior glenoid labrum as described. AC joint hypertrophy with AC joint effusion and moderate to marked narrowing of the subacromial space. Glenohumeral joint effusion with fluid in the subacromial-subdeltoid bursa. Electronically Signed: Phillip Dasilva, at 13:21 EST ,
== END | disposition home or self-care (01) ==
LOC: MRI 10:59
PROVIDERS: PCP Family Medicine; Referring Provider Orthopaedic Surgery; Visit Provider Orthopaedic Surgery
DX: S43.421A Sprain of right rotator cuff capsule, initial encounter (principal); M25.511 Pain in right shoulder; M62.81 Muscle weakness (generalized)
CPT/HCPCS: 73221

== ENCOUNTER → 2023-09-22 | Outpatient (CLI) | payer MEDICARE, OTHER, SELFPAY ==
--- NOTE | 2023-09-22 14:00 | NEURO ---
NCS and/or EMG Patient Report Ordering Doctor: Braulio Ca DATE OF SERVICE: 09/22/23 Clinical Summary: 72 year old female with symptoms of numbness/tingling in the medial digits of both hands. Nerve Conduction Studies Summary: The left ulnar-D5 SNAP distal latency was prolonged. Otherwise, nerve conduction studies were within normal ranges. Needle Examination Summary: Needle examination of select muscles of the bilateral upper extremities was normal. Impression: There is no electrodiagnostic evidence of a right/left ulnar mononeuropathy or median mononeuropathy at the wrist (carpal tunnel syndrome). Multi Select Codes Neurology Neurology Interp Codes: 55888-24 Musc test done w/n test comp (interp) (2) and 63716-22 Nrv cndj test 11-12 studies (interp)
== END | disposition home or self-care (01) ==
PROVIDERS: PCP Family Medicine; Referring Provider Family Medicine; Visit Provider Family Medicine
DX: R20.0 Anesthesia of skin (principal); R20.2 Paresthesia of skin
CPT/HCPCS: 95886; 95912

== ENCOUNTER → 2024-05-23 | Outpatient (CLI) | payer MEDICARE, OTHER, SELFPAY ==
--- NOTE | 2024-05-23 10:54 | BD_ITS ---
EXAM: DEXA examination lumbar spine and both hips. CLINICAL HISTORY: 73-year-old female who is postmenopausal. COMPARISON: None TECHNIQUE: DEXA examination of lumbar spine and both hips. FINDINGS: DEXA examination of lumbar spine shows a bone mineral density to measure 1.362 grams/centimeter squared. T-score measures 2.9 and Z-score measures 5.1. DEXA examination left femoral neck measures 0.791 grams/centimeter squared. T- score measures -0.5 and Z-score measures 1.4. Bone mineral density of the total left hip measures 1.002 grams/centimeter squared. T-score measures 0.5 and Z-score measures 2.1. DEXA examination of the right femoral neck shows the bone mineral density to measure 0.704 grams/centimeter squared. T-score measures -1.3 and Z-score measures 0.6. Total bone mineral density of the right hip measures 0.950 grams/centimeter squared. T-score measures 0.1 and Z-score measures 1.7. FRAX: The 10 year fracture risk index for major osteoporotic fracture is 19% and for a hip fracture is 4.8%. BD/Dexa Bone Density Study IMPRESSION: Patient demonstrates osteopenia of the right hip. Patient demonstrates normal bone mineral density of the lumbar spine and left hip Reading Location: [id number]
== END | disposition home or self-care (01) ==
PROVIDERS: PCP Family Medicine; Referring Provider Student in an Organized Health Care Education/Training Program; Visit Provider Student in an Organized Health Care Education/Training Program
DX: M81.0 Age-related osteoporosis without current pathological fracture (principal)
CPT/HCPCS: 77080

== ENCOUNTER → 2024-05-29 | Outpatient (CLI) | payer MEDICARE, OTHER, SELFPAY ==
--- NOTE | 2024-05-29 08:34 | MRI_ITS ---
EXAM: MRI lumbar spine without contrast. CLINICAL HISTORY: Back pain. COMPARISON: Lumbar spine radiograph 05/02/2019 TECHNIQUE: Multiplanar multisequence MRI of the lumbar spine without contrast. FINDINGS: Moderate dextroscoliosis. Lumbar lordosis is maintained. Grade 1 anterolisthesis of L5 on S1 vertebral body heights are maintained. Multilevel loss of disc space most prominent at L2-L3 and L3-L4.. Heterogenous marrow signal, without suspicious replacement. There is no abnormal bone STIR signal. The included distal thoracic cord is normal in caliber and signal. The conus medullaris terminates at L1 level. There is no clumping of the nerve roots. Advanced multilevel degenerative changes of the lumbar spine, including endplate remodeling, facet degenerative changes, disc bulges and ligamentum flavum hypertrophy. L1/2: Disc bulge and facet degenerative changes with mild canal stenosis. Mild bilateral neural foraminal narrowing.. L2/3: Circumferential disc bulge, [id number]-right facet degenerative changes and ligamentum flavum hypertrophy with moderate canal stenosis. Mild bilateral neural foraminal narrowing.. L3/4: Disc bulge asymmetric to the left, ligamentum flavum hypertrophy and [id number]-right facet degenerative changes moderate canal stenosis. Left subarticular recess narrowing. Moderate right and mild left neural foraminal narrowing.. L4/5: Circumferential disc bulge, ligamentum flavum hypertrophy and facet degenerative changes with severe canal stenosis. Bilateral subarticular recess narrowing. Mild bilateral neural foraminal narrowing. L5/S1: Circumferential disc bulge, ligamentum flavum hypertrophy and facet degenerative changes with severe canal stenosis. Bilateral subarticular recess narrowing. Severe bilateral neural foraminal narrowing, with mass effect on the bilateral exiting L5 nerve roots.. Diffuse fatty atrophy of the bilateral paraspinal musculature MRI/Spine Lumbar (Routine) IMPRESSION: Advanced multilevel degenerative changes of the lumbar spine, with up to severe canal stenosis and neural foraminal narrowing, most prominent at L5-S1. Multilevel subarticular recess narrowing. Reading Location: [id number]
== END | disposition home or self-care (01) ==
LOC: MRI 11:55
PROVIDERS: PCP Family Medicine; Referring Provider Student in an Organized Health Care Education/Training Program; Visit Provider Student in an Organized Health Care Education/Training Program
DX: M54.50 Low back pain, unspecified (principal)
CPT/HCPCS: 72148

== ENCOUNTER 2024-11-20 12:00 | Outpatient (CLI) | payer MEDICARE, OTHER, SELFPAY | END 2024-11-20 23:59 | disposition home or self-care (01) | LOC: SL 12:08 | PROVIDERS: PCP Family Medicine; Visit Provider Family Medicine | DX: Z00.00 Encounter for general adult medical examination without abnormal findings (principal) ==

== ENCOUNTER → 2025-01-04 | Outpatient (CLI) | payer MEDICARE, OTHER, SELFPAY | END | disposition home or self-care (01) | LOC: SL 13:18 | PROVIDERS: PCP Family Medicine; Referring Provider Nurse Practitioner Adult Health; Visit Provider Nurse Practitioner Adult Health | DX: G47.33 Obstructive sleep apnea (adult) (pediatric) (principal) | CPT/HCPCS: 95806 ==

== ENCOUNTER 2025-02-14 11:07 | Observation (INO) | payer MEDICARE, OTHER, SELFPAY ==
--- NOTE | 2025-01-29 15:16 | PAT.ANESEVAL ---
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 When Was Last Pacemaker Check QUESTION #4 FULL TEXT: You/Your Family Experience fever (hyperthermia) with Anesthesia Last Oral Intake Last Oral intake: Last Oral Intake NPO since Meds taken in AM with sips of water? Meds patient instructed to take am of surgery PONV PONV - environmental designer: PONV - environmental designer Female Yes 01/29/25 09:26 HX of Motion Sickness Yes 01/29/25 09:26 HX of N/V After Surgery No 01/29/25 09:26 Non-Smoker Yes 01/29/25 09:26 Duration of Surgery greater Yes 01/29/25 09:26 than 60 minutes Number of Risk Factors 4 01/29/25 09:26 PONV Score Severe Risk 01/29/25 09:26 Height & Weight Height & Weight: Anesthesia: Height & Weight Height 5 ft 3 in 10/31/24 11:30 Respiratory Assessment Respiratory Assessment - environmental designer: Respiratory Tract Infection Hx - environmental designer Hx Respiratory Tract Infection No 01/29/25 09:26 STOP Sleep Apnea STOP Sleep Apnea - environmental designer: STOP Sleep Apnea - environmental designer Hx Hypertension Yes: CONTROLLED WITH MED 01/29/25 09:26 Hx Sleep Apnea Yes 01/29/25 09:26 CPAP Yes 01/29/25 09:26 BIPAP No 01/29/25 09:26 Do you snore loudly (louder than talking or can be heard Do you often feel tired/ fatigued/ sleepy during daytime? Has anyone observed you stop breathing during sleep? STOP Results Positive 01/29/25 09:26 QUESTION #5 FULL TEXT : Do you snore loudly (louder than talking or can be heard through closed doors)? 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 Specify any problems Hx of Preganancy in last 3 No 01/29/25 09:26 Months Nurse Filling Out Transfusion DSCHRIBER 01/29/25 09:26 & Questions: Date: 01/29/25 01/29/25 09:26 Time: :01/29/25 09:26 Patient unable to answer at this time (ie. confused, unrespo /Reproduction History /Reproductive History - environmental designer: /Reproductive Hx- environmental designer Hx Now No 01/29/25 09:26 Gestational Age (in weeks): EDC: Hx Hx Para Hx Section SAB No 01/29/25 09:26 Does the father of the baby or his family experience fever w Father of the baby Malignant Hypertension history comment [facility] Medical History (Updated 01/29/25 @ 09:40 by Danette Young) Wears glasses Cancer Post-menopausal History of steroid therapy Rheumatoid arthritis Bladder disease Anemia High cholesterol Easy bruising Restless legs Back pain Non-smoker CPAP (continuous positive airway pressure) dependence History of pain when walking History of edema History of echocardiogram History of stress test Hypertension Osteoarthritis Morbid obesity due to excess calories Hiatal hernia GERD (gastroesophageal reflux disease) Anxiety Home Medications ?Medication ?Instructions ?Recorded ?Last Taken ?Type ascorbic acid (vitamin C) 500 mg 500 mg PO DAILY@0800 09/16/15 Unknown History tablet cyclobenzaprine 10 mg tablet 10 mg PO QHS 09/16/15 Unknown History fluoxetine 40 mg capsule 40 mg PO DAILY 09/16/15 Unknown History lisinopril 10 mg tablet 10 mg PO DAILY 09/16/15 05/19/17 History multivitamin with folic acid 400 1 tab PO DAILY 09/16/15 Unknown History mcg tablet zolpidem 10 mg tablet 10 mg PO QHS 09/16/15 Unknown History aspirin 81 mg tablet,delayed 81 mg PO DAILY 05/17/17 05/19/17 History release (Adult Low Dose Aspirin) cholecalciferol (vitamin D3) 10 400 unit PO QDAY 05/17/17 Unknown History mcg (400 unit) capsule glucosamine-chondroitin 250 mg-200 1 tab PO QAM 05/17/17 Unknown History mg tablet (Osteo Bi-Flex) acetaminophen 650 mg 650 mg PO Q12H 05/01/24 Unknown History tablet,extended release (Tylenol Arthritis Pain) hydroxychloroquine 200 mg tablet 200 mg PO BID 05/01/24 Unknown History meloxicam 15 mg tablet 15 mg PO QDAY 05/01/24 Unknown History mirabegron 50 mg tablet,extended 50 mg PO QDAY 05/01/24 Unknown History release 24 hr omeprazole 40 mg capsule,delayed 40 mg PO QDAY 05/01/24 Unknown History release spironolactone 25 mg tablet 25 mg PO QDAY 05/01/24 Unknown History calcium carbonate 600 mg PO DAILY 01/29/25 Unknown History conjugated estrogens 0.625 mg/gram 0.625 mg vaginal SUWE 01/29/25 Unknown History vaginal cream montelukast 10 mg tablet 10 mg PO QHS 01/29/25 Unknown History (Singulair) pregabalin 50 mg capsule 50 mg PO TID Spinal Stenosis 01/29/25 Unknown History Allergy/AdvReac Type Severity Reaction Status Date / Time poison seema extract Allergy Rash Verified 01/29/25 09:17 acetaminophen (From Percocet) AdvReac Itching Verified 01/29/25 09:17 codeine AdvReac Itching Verified 01/29/25 09:17 hydrocodone bitartrate (From AdvReac Itching Verified 01/29/25 09:17 Vicodin) hydromorphone HCl (From AdvReac Itching Verified 01/29/25 09:17 Dilaudid) meperidine (From Demerol) AdvReac Itching Verified 01/29/25 09:17 morphine AdvReac Itching Verified 01/29/25 09:17 oxycodone HCl (From Percocet) AdvReac Itching Verified 01/29/25 09:17 Family History Mother CAD (coronary artery disease) CAD in her 80's AAA Diabetes Brother Colon cancer Daughter Blood disorder Von Willinberg's Disease and Thrombocytosis Father Cancer Lung Cancer Surgical History (Updated 01/29/25 @ 09:40 by Danette Young) History of repair of rectocele Hx of colonoscopy Hx of right cataract extraction Hx of left cataract extraction History of cardiac catheterization History of thumb surgery History of thumb surgery Hx of total knee arthroplasty Hx of total knee arthroplasty History of repair of rotator cuff H/O total vaginal hysterectomy History of bunionectomy of left great toe left ankle surgery Social History Smoking Status: Never smoker alcohol intake: current Audit: Pertinent Findings Pertinent Findings EKG Perinent findings: EKG 01/24/2025. Sinus rhythm with occasional premature ventricular contractions. Incomplete left bundle branch block. Heart catheterization pertinent findings: Heart cath 05/19/2017. Normal coronary arteries. Segmented LV systolic dysfunction mild. The patient has normal pulmonary hemodynamics. Recommendation Anesthesia Recommendation Anesthesia recommendation: OPTIMIZED for anesthesia
[2025-02-02 15:13] LABS: Partial Thromboplast Time 26.3 Seconds (24.1-36.2); Prothrombin Time (Protime)PT. 12.9 SECONDS (11.7-14.9)
[2025-02-14] VITALS (18 sets, daily range): BP systolic 98–153; BP diastolic 62–84; PULSE 78–87; RESP 12–16; TEMP 36.2–37; O2SAT 93–100; BMI 52.0; BMI 53.4
--- OUTSIDE RECORDS SUMMARY | 2025-02-14 05:23 | XMS RPT_ITS | CCD ---
Author Organization [facility] Providers Care Etymology Teacher Name Role Phone FRED WHITTAKER Admitting Unavailable FRED WHITTAKER Attending Unavailable BRAULIO URRUTIA Primary Care Unavailable LIVIA BANKS Consulting Unavailable BENJI RUFFIN CNP Admitting Unavailab BENJI Wiseman CNP Attending Unavailab BRAULIO Galindo Primary Care Unavailable Braulio Urrutia MD Primary Care Provider DR. YAMILKA MAHONEY DO Attending Unavail able GHADA LEGER, BRAULIO Mcgregor Primary Care Unavailabl e BRAULIO URRUTIA Primary Care Unavailable BRAULIO URRUTIA Referring Unavailable BRAULIO URRUTIA Primary Care Unavailable Braulio Urrutia MD Primary Care Provider [phone] Silvia FENCE MAKER.MARINE EQUIPMENT PRESERVATION INSPECTOR, Jenni Unavailable Margaret Lomeli PA-C Unavailable DAVE KIM Attending Unavailable BRAULIO URRUTIA Primary Care Unavailable WENDY MARTINEZ Referring Unavailable Dr. Braulio Urrutia MD Referring Provider Lacey Beckford Attending Provider Dr. Qasim Acevedo MD Attending Provider Lacey Beckford Referring Provider Dr. Braulio Urrutia MD Primary Care Provider [phone] Braulio Urrutia MD Primary Care Provider BRAULIO URRUTIA MD Primary Care Physician Silvia FENCE MAKER.TEETEE, Jenni Unavailable Margaret Lomeli PA-C Unavailable Javier PAEZ Dr. Jamaal Attending Provider TONA PAEZ, DARRELL Cowan Attending Unavail able GHADA PAEZ, BRAULIO A Primary Care Unavailable Ghada PAEZ, Dr. Ramsey Primary Care Physician Ghada PAEZ, Dr. Ramsey Referring Provider Javier PAEZ, Dr. Hinton Attending Physician [phone] Ghada PAEZ, Dr. Ramsey Attending Physician GHADA, BRAULIO A Referring Unavailable GHADA, BRAULIO A Primary Care Unavailable JENNI STAHL Attending Unavailable GHADA, BRAULIO A Primary Care Unavailable RUT GUTIERREZ Attending Unavailable GHADA, BRAULIO A Primary Care Unavailable GHADA, BRAULIO A Referring Unavailable LJ PAZ Referring Unavailable GHADA, BRAULIO A Primary Care Unavailable GHADA, BRAULIO A Primary Care Unavailable GHADA, BRAULIO A Primary Care Unavailable SANDRA ESPINOZA Referring Unavailable GHADA, BRAULIO A Referring Unavailable GHADA, BRAULIO A Primary Care Unavailable GHADA, BRAULIO A Referring Unavailable GHADA, BRAULIO A Primary Care Unavailable GHADA, BRAULIO A Primary Care Unavailable GHADA, BRAULIO A Attending Unavailable GHADA, BRAULIO A Primary Care Unavailable YEN RAHMAN Attending Unavailable SELF Referring Unavailable JENNI STAHL Attending Unavailable GHADA, BRAULIO A Primary Care Unavailable GHADA, BRAULIO A Referring Unavailable GHADA, BRAULIO A Primary Care Unavailable Edil, Lacey Attending Unavailable Ghaad, Braulio Primary Care Unavailable Ghada, Braulio Referring Unavailable Ghada, Braulio Primary Care Unavailable Ghada, Braulio Referring Unavailable Javier Jamaal Attending Unavailable Edil, Lacey Attending Unavailable Ghada, Braulio Referring Unavailable Ghada, Braulio Primary Care Unavailable Herrera, Jamaal Admitting Unavailable Herrera, Jamaal Attending Unavailable Javier Jamaal Attending Unavailable Ghada, Braulio Primary Care Unavailable Herrera, Jamaal Admitting Unavailable Ghada, Braulio Attending Unavailable Ghada, Braulio Primary Care Unavailable Edil, Lacey Attending Unavailable Edil, Lacey Referring Unavailable Ghada, Braulio Primary Care Unavailable Edil, Lacey Attending Unavailable Edil, Lacey Referring Unavailable Ghada, Braulio Primary Care Unavailable Ghada, Braulio Primary Care Unavailable Rut Gutierrez NP Attending Unavailable Rut Gutierrez NP Referring Unavailable Qasim Acevedo Attending Unavailable Braulio Urrutia Primary Care Unavailable Brauilo Urrutia Referring Unavailable Azucena Vasquez Attending Unavailable Allergies Allergy Classification Reported Allergen(s) Allergy Type Date of Onset Reaction(s) Facility Acetaminophen / HYDROcodone (1 source) Acetaminophen / HYDROcodone Drug Allergy 5 Unknown [facility] Acetaminophen / oxyCODONE (1 source) Acetaminophen / oxyCODONE Drug Allergy 6 Unknown [facility] Opioid Agonists (3 sources) Meperidine Drug Allergy 9 Itching, Rash [facility] POISON MICHELLE EXTRACT (1 source) POISON MICHELLE EXTRACT Drug Allergy 3 Swelling, Itching, Other: See Comments [facility] (1 source) Acetaminophen / HYDROcodone Drug Allergy [facility] Repository (1 source) Acetaminophen / oxyCODONE Drug Allergy [facility] Repository (1 source) HYDROmorphone Drug Allergy [facility] Repository (1 source) Meperidine Drug Allergy [facility] Repository (5 sources) Morphine; Translations: [MORPHINE] Drug Allergy 9 [facility] Repository (6 sources) Acetaminophen Drug Allergy 0 Itching [facility] (6 sources) Codeine Drug Allergy 0 Itching [facility] (7 sources) HYDROcodone; Translations: [hydrocodone bitartrate] Drug Allergy 0 Itching [facility] (7 sources) HYDROmorphone; Translations: [hydromorphone HCl] Drug Allergy 0 Itching [facility] (7 sources) Meperidine; Translations: [meperidine] Drug Allergy 0 Itching [facility] (20 sources) Morphine; Translations: [morphine] Drug Allergy 9 Rash [facility] Work Phone: (7 sources) oxyCODONE; Translations: [oxycodone HCl] Drug Allergy 0 Itching [facility] (20 sources) poison michelle; Translations: [POISON MICHELLE] Allergy to substance 3 Swelling, Itching, Other: See Comments [facility] Work Phone: (5 sources) POISON MICHELLE EXTRACT Drug Allergy 2 Rash [facility] Comment on above: RASH/SWELLING (20 sources) Acetaminophen / HYDROcodone; Translations: [HYDROCODONE-ACET AMINOPHEN] Drug Allergy 5 Unknown [facility] Work Phone: (20 sources) Acetaminophen / oxyCODONE; Translations: [OXYCODONE-ACETAM INOPHEN] Drug Allergy 6 Unknown [facility] Work Phone: (20 sources) HYDROmorphone; Translations: [HYDROMORPHONE (BULK)] Drug Allergy 0 Itching [facility] Work Phone: (20 sources) Meperidine; Translations: [MEPERIDINE (PF)] Drug Allergy 9 Itching [facility] Work Phone: (1 source) HYDROmorphone; Translations: [hydromorphone] Drug Allergy [facility] (1 source) Acetaminophen Drug Allergy 5 [facility] Repository (1 source) Codeine Drug Allergy 5 [facility] Repository (1 source) Meperidine Drug Allergy 5 [facility] Repository (1 source) Morphine Drug Allergy 5 [facility] Repository (1 source) poison michelle extract Drug allergy (disorder) 5 [facility] Repository Medications Current Medications Medication Drug Class(es) Dates Sig (Normalized) Sig (Original) 8 hr acetaminophen 650 mg extended release oral tablet (20 sources) Start: 05-01-2024 take 1 tablet by mouth every twelve hours take 1 tablet by mikael th every eight hours as needed acetaminophen (TYLENOL ARTHRITIS PAIN) 6 50 mg CR tablet Take 650 mg by mouth every 8 hours as needed. Active Comment on above: Take 650 mg by mouth every 8 hours as needed. amoxicillin 500 mg oral capsule (20 sources) Penicillin-class Antibacterial Start: 0 amoxicillin (POLYMOX, AMOXIL) 500 mg capsule Take 4 capsules by mouth as needed. Before dental procedures. 4 capsule 3 12/20/2019 Active Comment on above: Take 4 capsules by m out as needed. Before dental procedures. ascorbic acid 500 mg oral tablet (20 sources) Vitamin C Start: take 1 tablet by mouth once daily Start: 03-12-2008 take [id number] 333 capsule by mouth once daily ascorbic acid(VITAMIN C 500 MG SR CAP) Take 1,000 mg by mouth once daily. Last dose 06/10 0 03/12/2008 Active Start: 03-12-2008 ascorbic acid( VITAMIN C 500 MG SR CAP) Take by mouth. Last dose 06/10 0 03/12/2008 Active Comment on above: Take one(1) tablet d aily. Take by mouth. Last dose 06/10 Aspirin (7 sources) Platelet Aggregation Inhibitor, Nonsteroidal Anti-inflammatory Drug Start: 06-27-2024 aspirin 0 Refill(s) Start Date: 06/27/24 Status: Ordered Repeat number: 1 Start: 05-17-2017 calcium acetate 667 mg oral tablet (2 sources) Start: 06-06-2024 take 1 tablet by mouth once cholecalciferol 0.01 mg oral capsule (6 sources) Vitamin D Start: 05-17-2017 take 1 capsule by mouth once daily chondroitin sulfates 200 mg / glucosamine hydrochloride 250 mg oral tablet (6 sources) Start: 05-17-2017 cyclobenzaprine (20 sources) Muscle Relaxant Start: 06-27-2024 Flexeril use cyclobenzaprine Oral, 0 Refill(s) Start Date: 06/27/24 Status: Ordered Repeat number: 1 Start: 09-06-2023 cyclobenzaprin e (FLEXERIL) 10 mg tablet Take once a day as needed for pain. 7 tablet 0 09/06/2023 Active Start: 09-16-2015 End: 03-05-2024 take 1 tablet by mouth at bedtime Comment on above: Take once a day as n eeded for pain. Take one a day as ne eded for pain. docusate sodium 100 mg oral capsule (20 sources) Start: 05-06-2006 COLACE 100 MG CAP Take by mouth every morning. 0 05/06/2006 Active Comment on above: Take one(1) tablet d aily. Take by mouth every morning. estrogens, conjugated (half-way) 0.625 mg oral tablet (20 sources) Estrogen Start: 05-01-2024 take 1 tablet by mouth once daily Start: 06-12-2020 End: 08-10-2024 take 1 tablet by mouth two times weekly estrogens conjugated (PREMARIN) 0.625 mg tablet Indications: Symptomatic menopausal or female climacteric states Take 1 tablet by mouth two times a week. 24 tablet 1 08/10/2024 Active Comment on above: Take 1 tablet by mikael th two times a week. FLUoxetine 40 mg oral capsule (20 sources) Serotonin Reuptake Inhibitor Start: 06-27-2024 PROzac Oral, qDay, 0 Refill(s) Start Date: 06/27/24 Status: Ordered Repeat number: 1 Start: 09-16-2015 End: 08-10-2024 take 1 capsule by mouth once daily Comment on above: Take 1 capsule by mo [facility] once daily. GLUCOSAMINE HCL/CHONDR PACHECO A NA (OSTEO BI-FLEX ORAL) (20 sources) take [id number] 3 dose by mouth once daily GLUCOSAMINE HCL/CHONDR PACHECO A NA (OSTEO BI-FLEX ORAL) Take by mouth once daily. Last dose 06/10 Active take [id number] 333 dose by mouth once daily GLUCOSAMINE HCL/CHONDR PCAHECO A NA (OSTEO BI-FLEX ORAL) Take by mouth once daily. Last dose 06/10 0 Active GLUCOSAMINE HCL/ CHONDR PACHECO A NA (OSTEO BI-FLEX ORAL) Take by mouth. 0 Active Comment on above: Take by mouth. Take by mouth once d aily. Last dose 06/10 hydroxychloroquine sulfate 200 mg oral tablet (20 sources) Antimalarial, Antirheumatic Agent Start: 06-13-19 End: 08-11-19 take 1 tablet by mouth once daily Comment on above: Take 1 tablet by mikael th twice daily. Per rheumatology lisinopril 10 mg oral tablet (20 sources) Angiotensin Converting Enzyme Inhibitor Start: 06-28-19 lisinopril Oral, qDay, 0 Refill(s) Start Date: 06/27/24 Status: Ordered Repeat number: 1 Start: 09-16-2015 End: 08-10-2024 take 1 tablet by mouth once daily Comment on above: Take 1 tablet by mikael th once daily. LOW-DOSE ASPIRIN ORAL (20 sources) take [id number] dose by mouth once daily LOW-DOSE ASPIRIN ORAL Take 81 mg by mouth once daily. Last dose 06/16 Active take [id number] 222 dose by mouth once daily LOW-DOSE ASPIRIN ORAL Take 81 mg by mouth once daily. Last dose 06/16 0 Active LOW-DOSE ASPIRIN ORAL Take by mouth. 0 Active Comment on above: Take by mouth. Take 81 mg by mouth once daily. Last dose 06/16 magnesium carb,citrate,oxide (MAGNESIUM COMPLEX ORAL) (20 sources) magnesium carb,c itrate,oxide (MAGNESIUM COMPLEX ORAL) Take by mouth. Taking 500 mg magnesium Active magnesium carb,c itrate,oxide (MAGNESIUM COMPLEX ORAL) Take by mouth. Taking 500 mg magnesium 0 Active Comment on above: Take by mouth. Takin g 500 mg magnesium melatonin 10 mg oral capsule (20 sources) melatonin 10 mg cap Take by mouth as directed. Active Comment on above: Take by mouth as dir ected. meloxicam 15 mg oral tablet (20 sources) Nonsteroidal Anti-inflammatory Drug Start: 05-01-2024 take 1 tablet by mouth once daily take [id number] 222 tablet by mouth once daily meloxicam (MOBIC) 15 mg tablet Take 15 mg by mouth once daily. Last dose 06/16 Active take 1 tablet by mouth once abhi y meloxicam (MOBIC) 15 mg tablet Take 15 mg by mouth once daily. 0 Active Comment on above: Take 15 mg by mouth once daily. Take 15 mg by mouth once daily. Last dose 06/16 24 hr mirabegron 50 mg extended release oral tablet (20 sources) beta3-Adrenergic Agonist Start: 05-01-2024 take 1 tablet by mouth once daily Comment on above: Take by mouth. Take by mouth every morning. montelukast 10 mg oral tablet (20 sources) Leukotriene Receptor Antagonist Start: 06-27-2024 Singulair qDay, 0 Refill(s) Start Date: 06/27/24 Status: Ordered Repeat number: 1 Start: 02-25-2017 End: 08-10-2024 take 1 tablet by mouth once daily Montelukast 10 MG tablet Discontinued 10 mg PO DAILY February 25, 2017 1:00am May 01, 2024 2:36pm Comment on above: Take 1 tablet by mikael th daily at bedtime. Multivitamin With Folic Acid (2 sources) Start: 6 take 1 tablet by mouth once daily Multivitamin With Folic Acid Active 1 TABLET PO DAILY September 16, 2015 1:45pm Start: 09-16-2015 take 1 tablet by mikael th once daily Multivitamin With Folic Acid Active 1 TABLET PO DAILY September 15, 2015 11:00pm Multivitamin With Folic Acid 1 TABLET tablet (4 sources) Start: 09-16-2015 take 1 tablet by mikael th once daily Start: 09-16-2015 take 1 tablet by mikael th once daily Multivitamin With Folic Acid 1 TABLET tablet Active 1 {tbl} PO DAILY September 16, 2015 12:00am multivitamins(DAILY MULTIVIT MACIAS TAB) (20 sources) Start: 03-12-2008 multivitamins( DAILY MULTIVITAMIN TAB) Take 1 tablet by mouth once daily. Last dose 06/10 0 03/12/2008 Active Start: 03-12-2008 multivitamins( DAILY MULTIVITAMIN TAB) Take by mouth. Last dose 06/10 0 03/12/2008 Active Start: 03-12-2008 multivitamins( DAILY MULTIVITAMIN TAB) Take one(1) tablet daily. 0 03/12/2008 Active Comment on above: Take one(1) tablet d aily. Take by mouth. Last dose 06/10 omeprazole 40 mg delayed release oral capsule (20 sources) Proton Pump Inhibitor Start: 09-08-2023 End: 08-10-2024 take 1 capsule by mouth once daily Start: 06-22-2022 End: 09-06-2023 take 1 capsule by mouth once daily omeprazole (PRILOSEC) 40 mg capsule Take 1 capsule by mouth once daily. 7 capsule 0 09/06/2023 Active Start: 07-25-2021 End: 06-20-2022 take 1 capsule by mouth once daily omeprazole (PRILOSEC) 40 mg capsule Take 1 capsule by mouth once daily. 20 capsule 0 02/16/2022 05/26/2022 Discontinued (Other) Start: 12-20-2019 End: 06-12-2020 take 1 capsule by mouth once daily omeprazole (PRILOSEC) 40 mg capsule Take 1 capsule by mouth once daily. 90 capsule 1 12/20/2019 06/12/2020 Discontinued Start: 09-16-2015 End: 05-01-2024 take 2 capsules by mouth once daily Omeprazole 20 MG capsule Discontinued 40 mg PO DAILY September 16, 2015 12:00am May 01, 2024 2:36pm Start: 09-16-2015 take 40 mg by mouth once daily Omeprazole Active 40 MG PO DAILY September 16, 2015 1:45pm Comment on above: Take 1 capsule by [facility] once daily. polyethylene glycol 3350 255366 mg / potassium chloride 2970 mg / sodium bicarbonate 6740 mg / sodium chloride 5860 mg / sodium sulfate 89663 mg powder for oral solution (1 source) Osmotic Laxative Start: 11-15-2023 End: 11-15-2023 peg 3350-Electrolytes (GOLYTELY) 236-22.74-6.74 -5.86 gram suspension Indications: Family history of malignant neoplasm of gastrointestinal tract , Encounter for screening for malignant neoplasm of colon Take 4,000 mL by mouth one time only for 1 dose. Refer to printed prep instructions from your provider. 4000 mL 11/15/2023 11/15/2023 Active spironolactone 25 mg oral tablet (20 sources) Aldosterone Antagonist Start: 06-27-2024 spironolactone Oral, 0 Refill(s) Start Date: 06/27/24 Status: Ordered Repeat number: 1 Start: 09-08-2023 End: 08-10-2024 take 1 tablet by mouth once daily Start: 06-22-2022 End: 09-06-2023 take 1 tablet by mouth once daily spironolactone (ALDACTONE) 25 mg tablet Take 1 tablet by mouth once daily. 7 tablet 0 09/06/2023 Active Start: 07-25-2021 End: 06-20-2022 take 1 tablet by mouth once daily spironolactone (ALDACTONE) 25 mg tablet Take 1 tablet by mouth once daily. 20 tablet 0 02/16/2022 05/26/2022 Discontinued (Other) Comment on above: Take 1 tablet by [facility] once daily. WALKER ROLLATOR SEAT WITH 6 WHEELS - RED (20 sources) Start: 03-30-2023 WALKER ROLLATOR SEAT WITH 6 WHEELS - RED Indications: Rheumatoid arthritis involving multiple sites with positive rheumatoid factor (HCC) , Balance disorder , Osteoarthritis of multiple joints, unspecified osteoarthritis type , History of total bilateral knee replacement , Spinal stenosis of lumbar region with neurogenic claudication UAD 1 Each 03/30/2023 Active Start: 03-30-2023 WALKER ROLLATO R SEAT WITH 6 WHEELS - RED Indications: Rheumatoid arthritis involving multiple sites with positive rheumatoid factor (HCC) , Balance disorder , Osteoarthritis of multiple joints, unspecified osteoarthritis type , History of total bilateral knee replacement , Spinal stenosis of lumbar region with neurogenic claudication UAD 1 Each 0 03/30/2023 Active Comment on above: UAD zolpidem tartrate 10 mg oral tablet (20 sources) gamma-Aminobutyric Acid-ergic Agonist Start: 09-16-2015 End: 02-06-2025 take 1 tablet by mouth at bedtime Start: 09-16-2015 End: 08-05-2022 take 1 tablet by mouth at bedtime as needed zolpidem (AMBIEN) 10 mg Indications: Insomnia, unspecified type Take 1 tablet by mouth at bedtime as needed (insomnia) for up to 20 days. 20 tablet 0 02/16/2022 08/05/2022 Discontinued Comment on above: Take 1 tablet by mikael th at bedtime as needed for up to 180 days. For Insomnia. Take 1 tablet by mikael th at bedtime as needed (insomnia) for up to 20 days. Completed/Discontinued Medications Medication Drug Class(es) Dates Sig (Normalized) Sig (Original) calcium chloride 0.0014 meq/ml / potassium chloride 0.004 meq/ml / sodium chloride 0.103 meq/ml / sodium lactate 0.028 meq/ml injectable solution (1 source) Start: 02-25-2024 End: 02-25-2024 take 30 mL intravenously every hour 30 mL/hr, INTRAVENOUS, CONTINUOUS, Starting on Wed02/25/24 at 0930, Until Wed02/25/24 at 1134, Preprocedure cephalexin 250 mg oral capsule (6 sources) Cephalosporin Antibacterial Start: 09-16-2015 End: 05-16-2017 take 1 capsule by mouth every six hours Cephalexin 250 MG capsule Discontinued 250 mg PO EVERY 6 HOURS 39 0 September 16, 2015 12:00am May 16, 2017 5:02pm cetirizine hydrochloride 10 mg oral capsule (6 sources) Histamine-1 Receptor Antagonist Start: 09-16-2015 End: 05-16-2017 take 1 capsule by mouth once daily Cetirizine 10 MG capsule Discontinued 10 mg PO DAILY September 16, 2015 12:00am May 16, 2017 5:03pm clopidogrel 75 mg oral tablet (6 sources) P2Y12 Platelet Inhibitor Start: 05-17-2017 End: 05-19-2017 take 1 tablet by mouth once daily Clopidogrel 75 mg tablet Discontinued 75 mg PO daily 30 May 17, 2017 12:00am May 19, 2017 3:03pm diclofenac sodium 75 mg delayed release oral tablet (6 sources) Nonsteroidal Anti-inflammatory Drug Start: 09-16-2015 End: 05-01-2024 take 1 tablet by mouth twice daily at mealtime Diclofenac Sodium 75 MG tablet Discontinued 75 mg PO TWICE DAILY WITH MEALS September 16, 2015 12:00am May 01, 2024 2:37pm fluticasone propionate 0.05 mg/actuat metered dose nasal spray (12 sources) Corticosteroid Start: 05-17-2017 End: 05-01-2024 Fluticasone Propionate 1 SPRAY spray,suspension Discontinued 1 NMA INTRANASAL DAILY as needed for Sob &/Or Wheezing May 17, 2017 11:32am May 01, 2024 2:36pm Start: 02-25-2017 End: 05-17-2017 Fluticasone Propionate 1 SPR AY spray,suspension Discontinued 1 NMA NASAL DAILY February 25, 2017 1:00am May 17, 2017 11:34am Start: 02-25-2017 End: 05-17-2017 Fluticasone Propionate Activ e 1 SPRAY INTRANASAL DAILY May 17, 2017 10:32am folic acid 1 mg oral tablet (1 source) Start: 07-27-2018 End: 07-25-2021 take 1 tablet by mouth twice daily folic acid 1 mg tablet Take 1 tablet by mouth twice daily. 07/27/2018 07/25/2021 Discontinued (Course of therapy completed) hydroCHLOROthiazide 12.5 mg oral capsule (7 sources) Thiazide Diuretic Start: 05-17-2017 End: 05-01-2024 take 1 capsule by mouth once daily in the morning Hydrochlorothiazide 12.5 mg capsule Discontinued 12.5 mg PO EVERY MORNING 30 May 17, 2017 12:00am May 01, 2024 2:36pm methotrexate 2.5 mg oral tablet (1 source) Folate Analog Metabolic Inhibitor End: 01-21-2021 methotrexate 2.5 mg tablet Take by mouth one time only. 4 tabs by mouth once weekly than 5 tabs once weekly 01/21/2021 Discontinued predniSONE 10 mg oral tablet (8 sources) Start: 06-17-2022 predniSONE (DELTASONE) 10 mg tablet Take 6 tabs by mouth for 3 days then 4 tabs a day for 3 days then 2 tabs a day for 3 days and then 1 tab a day for 3 days. 39 tablet 0 06/17/2022 Active Start: 05-07-2019 End: 05-14-2019 take 2 tablets by mouth once daily at mealtime Prednisone 20 MG tablet Discontinued 40 mg PO DAILY May 07, 2019 1:00am May 13, 2019 12:00am May 14, 2019 12:08am With food Start: 05-07-2019 End: 05-14-2019 take 40 mg by mouth once daily at mealtime Prednisone Discontinued 40 MG PO DAILY May 07, 2019 1:43am May 14, 2019 12:08am With food Comment on above: Take 6 tabs by mouth for 3 days then 4 tabs a day for 3 days then 2 tabs a day for 3 days and then 1 tab a day for 3 days. regadenoson (LEXISCAN) 0.4 mg/5 mL syrg (1 source) Start: 05-30-19 End: 05-30-19 regadenoson (LEXISCAN) 0.4 mg/5 mL syrg Indications: Pre-op examination , LBBB (left bundle branch block) , Abnormal EKG Inject 5 mL intravenously one time only for 1 dose. Give IV push over 10 seconds and follow with 5 ml of normal saline 5 mL 0 05/29/2022 05/29/2022 Comment on above: Inject 5 mL intraven ously one time only for 1 dose. Give IV push over 10 seconds and follow with 5 ml of normal saline 24 hr trospium chloride 60 mg extended release oral capsule (6 sources) Cholinergic Muscarinic Antagonist Start: 02-26-20 End: 05-02-19 take 1 capsule by mouth once daily Trospium 60 MG capsule,extended release 24hr Discontinued 60 mg PO DAILY February 25, 2017 1:00am May 01, 2024 2:36pm Problems Active Problems Problem Classification Problem Date Documented Da te Episodic/Chronic Abdominal hernia (20 sources) Hiatal hernia; Translations: [Diaphragmatic hernia without obstruction or gangrene] 02-24-2021 Episodic Acquired foot deformities (20 sources) Acquired hallux valgus; Translations: [Hallux valgus (acquired), unspecified foot] Onset: 9 10-11-2015 Chronic Anxiety disorders (20 sources) Anxiety disorder, unspecified; Translations: [Anxiety] Onset: 4 08-31-2013 Chronic Cataract (20 sources) Senile cataract; Translations: [Other age-related cataract] Onset: 9 07-27-2018 Chronic Complications of surgical procedures or medical care (4 sources) Prolapse of vaginal vault after hysterectomy; Translations: [Hypoinsulinemia following procedure] Onset: 0 Chronic Conduction disorders (20 sources) Left bundle branch block; Translations: [Left bundle-branch block, unspecified] Onset: 3 Chronic Esophageal disorders (20 sources) Gastro-esophageal reflux disease without esophagitis; Translations: [Gastroesophageal reflux disease without esophagitis] Onset: 6 06-04-2015 Chronic Essential hypertension (20 sources) Essential (primary) hypertension; Translations: [Hypertensive disorder] Onset: 6 06-27-2015 Chronic Menopausal disorders (20 sources) Menopausal symptom; Translations: [Menopausal and female climacteric states] Onset: 2 08-31-2013 Chronic Osteoarthritis (20 sources) Unspecified osteoarthritis, unspecified site; Translations: [Localized, primary osteoarthritis] Onset: 6 2016 Chronic Osteoporosis (1 source) Age-related osteoporosis without current pathological fracture; Translations: [Age-related osteoporosis without current pathological fracture] Onset: 5 Chronic Other acquired deformities (4 sources) Scoliosis deformity of spine; Translations: [Scoliosis, unspecified] 06-06-2024 Chronic Other connective tissue disease (1 source) Presence of artificial knee joint, bilateral; Translations: [PRESENCE ARTIFICIAL KNEE JNT BILAT] Onset: 0 Chronic Other connective tissue disease (20 sources) History of total knee arthroplasty; Translations: [Presence of unspecified artificial knee joint] 02-24-2021 Chronic Other connective tissue disease (3 sources) Pain in right lower limb; Translations: [Pain in right leg] 10-22-2022 Episodic Other diseases of bladder and urethra (20 sources) Overactive bladder; Translations: [Overactive bladder] Onset: 4 07-02-2016 Chronic Other gastrointestinal disorders (20 sources) Constipation; Translations: [Constipation, unspecified] 2016 Episodic Other liver diseases (20 sources) Steatosis of liver; Translations: [Fatty (change of) liver, not elsewhere classified] 2016 Chronic Other liver diseases (1 source) Fatty (change of) liver, not elsewhere classified; Translations: [Fatty liver] Onset: Chronic Other lower respiratory disease (6 sources) Dyspnea on exertion; Translations: [Dyspnea, unspecified] 05-16-2017 Episodic Other nervous system disorders (20 sources) Chronic pain syndrome; Translations: [Chronic pain syndrome] Onset: 4 05-06-2023 Chronic Other nervous system disorders (3 sources) Numbness and tingling sensation of skin; Translations: [Anesthesia of skin] 10-22-2022 Episodic Other nervous system disorders (1 source) Paresthesia; Translations: [Paresthesia of skin] 10-30-2022 Episodic Other nervous system disorders (1 source) Paresthesia of hand ; Translations: [Anesthesia of skin] 08-24-2023 Episodic Other non-traumatic joint disorders (1 source) Joint pain; Translations: [Pain in other specified joint] Episodic Other non-traumatic joint disorders (3 sources) Pain in right knee; Translations: [Pain in joint, lower leg] 10-22-2022 Episodic Other nutritional; endocrine; and metabolic disorders (20 sources) Morbid obesity; Translations: [Morbid (severe) obesity due to excess calories] Onset: 9 12-15-2022 Chronic Other nutritional; endocrine; and metabolic disorders (20 sources) Body mass index 40+ - severely obese; Translations: [Morbid (severe) obesity due to excess calories] Onset: 9 07-27-2018 Chronic Other nutritional; endocrine; and metabolic disorders (19 sources) Obesity; Translations: [Obesity, unspecified] Onset: 9 02-04-2024 Chronic Other upper respiratory disease (20 sources) Allergic rhinitis; Translations: [Allergic rhinitis, unspecified] Onset: 4 08-31-2013 Chronic Other upper respiratory disease (1 source) Allergic rhinitis, unspecified; Translations: [Allergic rhinitis, unspecified seasonality, unspecified trigger] Onset: 4 Chronic Residual codes; unclassified (1 source) Dependence on other enabling machines and devices; Translations: [DEPEND OTH ENABLING MACHINESANDDEVICE] Onset: 0 Chronic Residual codes; unclassified (3 sources) Obstructive sleep apnea (adult) (pediatric); Translations: [OBSTRUCTIVE SLEEP APNEA] Onset: 0 Chronic Residual codes; unclassified (20 sources) Obstructive sleep apnea syndrome; Translations: [Obstructive sleep apnea (adult) (pediatric)] Onset: 8 11-04-2017 Chronic Residual codes; unclassified (20 sources) Family history of malignant neoplasm of gastrointestinal tract; Translations: [Family history of malignant neoplasm of digestive organs] 05-04-2018 Episodic Residual codes; unclassified (2 sources) Other general symptoms and signs; Translations: [Other general symptoms] Onset: 3 Episodic Rheumatoid arthritis and related disease (20 sources) Rheumatoid arthritis, unspecified; Translations: [Rheumatoid arthritis of multiple joints] Onset: 9 07-23-2020 Chronic Spondylosis; intervertebral disc disorders; other back problems (9 sources) Degeneration of lumbar intervertebral disc; Translations: [Degeneration of intervertebral disc of lumbar region] 05-01-2024 Chronic Unclassified (1 source) Pain in other specified joint; Translations: [Pain in other specified joint] Onset: 3 Unclassified (1 source) Low back pain, unspecified; Translations: [Low back pain, unspecified] Onset: 5 Past or Other Problems Problem Classification Problem Date Documented Date Episodic/Chronic Administrative/social admission (20 sources) Advance directive discussed with patient; Translations: [Other specified counseling] Onset: 2 02-04-2022 Episodic Allergic reactions (2 sources) Allergy status to narcotic agent status; Translations: [ALLERGY STATUS NARCOTIC AGENT] Onset: 0 Episodic Complication of device; implant or graft (20 sources) Disorders of musculoskeletal implants and repairs; Translations: [Other specified complication of internal orthopedic prosthetic devices, implants and grafts, initial encounter] Onset: 9 2016 Episodic Diabetes mellitus without complication (20 sources) Hyperglycemia; Translations: [Impaired fasting glucose] Onset: 7 11-04-2017 Episodic E Codes: Cut/pierceb (1 source) Contact with powered garden and outdoor hand tools and machinery, initial encounter; Translations: [Contact with powered garden and outdoor hand tools and machinery, initial encounter] Onset: 5 Episodic E Codes: Unspecified (1 source) Activity, gardening and landscaping; Translations: [Activity, gardening and landscaping] Onset: 5 Episodic Fluid and electrolyte disorders (20 sources) Hyponatremia; Translations: [Hypo-osmolality and hyponatremia] Onset: 1 01-31-2021 Episodic Immunizations and screening for infectious disease (2 sources) Encounter for immunization; Translations: [Encounter for immunization] Onset: 4 Episodic Open wounds of extremities (9 sources) Laceration of left index finger; Translations: [Laceration without foreign body of left index finger without damage to nail, initial encounter] Onset: 5 06-27-2024 Episodic Other aftercare (2 sources) Other watermelon inspector (current) drug therapy; Translations: [OTH DIAMOND ASSORTER CURRENT DRUG THERAPY] Onset: 0 Episodic Other aftercare (1 source) terminal operator (current) use of aspirin; Translations: [DIAMOND ASSORTER CURRENT USE OF ASPIRIN] Onset: 0 Episodic Other aftercare (20 sources) Patient encounter status; Translations: [Other [facility]p (current) drug therapy] Onset: 1 Resolved: 4 06-12-2020 Episodic Other aftercare (20 sources) Drug therapy finding; Translations: [Other [facility] (current) drug therapy] Onset: 7 Resolved: 2 07-25-2021 Episodic Other bone disease and musculoskeletal deformities (10 sources) Senile osteopenia; Translations: [Other specified disorders of bone density and structure, unspecified site] Onset: 5 05-26-2024 Episodic Other circulatory disease (20 sources) Elevated blood-pressure reading without diagnosis of hypertension; Translations: [Elevated blood-pressure reading, without diagnosis of hypertension] Onset: 6 Resolved: 6 10-11-2015 Episodic Other connective tissue disease (20 sources) Spasm; Translations: [Other muscle spasm] Onset: 8 05-04-2018 Episodic Other nervous system disorders (20 sources) Impairment of balance; Translations: [Other abnormalities of gait and mobility] Onset: 4 03-24-2023 Episodic Other non-traumatic joint disorders (20 sources) Pain in right shoulder; Translations: [Pain in joint, shoulder region] Onset: 3 08-21-2022 Episodic Other screening for suspected conditions (not mental disorders or infectious disease) (20 sources) Electrocardiogram abnormal; Translations: [Abnormal electrocardiogram [ECG] [EKG]] Onset: 6 04-21-2016 Episodic Other skin disorders (20 sources) Disorder of skin; Translations: [Other skin changes] Onset: 1 07-25-2021 Episodic Residual codes; unclassified (20 sources) Insomnia; Translations: [Insomnia, unspecified] Onset: 6 2016 Episodic Residual codes; unclassified (20 sources) Active living will ; Translations: [Other specified health status] Onset: 2 02-04-2022 Episodic Residual codes; unclassified (1 source) Family history of malignant neoplasm of digestive organs; Translations: [Family history of malignant neoplasm of gastrointestinal tract] Onset: 9 Episodic Residual codes; unclassified (1 source) Insomnia, unspecified; Translations: [Insomnia, unspecified type] Onset: 7 Episodic Screening and history of mental health and substance abuse codes (1 source) Encounter for screening for depression; Translations: [Screening for depression] Onset: 4 Episodic Spondylosis; intervertebral disc disorders; other back problems (20 sources) Sciatica; Translations: [Sciatica, right side] Onset: 3 Episodic Results Test Name Value Interpretation Reference Range Facility [facility] ([id number]) 1950 F Date Time Provider Department 12/15/24 RUT GUTIERREZ During your visit today, we recorded the following information about you: Cass Call LPN 12/15/2024 2:41 PM Signed PAP download received from [employer] via fax. Will forward to provider for review. Download scanned to patient's chart. DISHA Verma Rebecca, APRN.CNP 12/15/2024 4:57 PM Signed There was confusion about her getting a sleep study, and where it was to be done. [place] [facility] [place], [place] needs [place] 4% scored study since her 2018 study was 3%. Please call pt to see if she has scheduled and where. SALBADOR Germain Lori, LPN 12/18/2024 3:29 PM Signed Message left inquiring if patient completed sleep study and if so where so we can obtain a copy. Otherwise if not completed she needs to reschedule for 5-6 weeks after she completes the sleep study. DISHA Verma Lori, LPN 12/19/2024 4:40 PM Signed Patient responded via [facility] and reports doing HSAT through [facility]. She picks up equipment 01/04/25. DISHA Verma Rebecca, APRN.CNP 12/19/2024 4:54 PM Signed Noted thanks Rut Gutierrez APRN.CNP Allergies As of Date: 12/15/2024 Noted Allergy Reaction MORPHINE 11/15/2018 2 - Rash Comments: And delusions DEMEROL (MEPERIDINE (PF)) 06/19/2008 9 - Itching DILAUDID (HYDROMORPHONE (BULK)) 07/01/2009 9 - Itching PERCOCET (OXYCODONE-ACETAMINOPH EN)07/22/2005 16 - Unknown POISON MICHELLE 12/26/2012 7 - Swelling 9 - Itching 14 - Other: See Comments Comments: nausea VICODIN (HYDROCODONE-ACETAMINO PHE*02/03/2005 16 - Unknown Date Reviewed: 11/16/2024 Reviewed by: Bird Bloom LPN - Fully Assessed Reason for Visit: PAP download 11/16-12/12/24 [Other] Prescriptions as of 12/19/2024 - cyclobenzaprine (FLEXERIL) 10 mg tablet Take once a day as needed for pain. - CPAP/BIPAP/OTHER APAP 9-20 cmH2O DME [facility] - zolpidem (AMBIEN) 10 mg Take 1 tablet by mouth at bedtime as needed for up to 180 days. For Insomnia. - spironolactone (ALDACTONE) 25 mg tablet Take 1 tablet by mouth once daily. - omeprazole (PRILOSEC) 40 mg capsule Take 1 capsule by mouth once daily. - montelukast (SINGULAIR) 10 mg tablet Take 1 tablet by mouth daily at bedtime. - lisinopril (ZESTRIL) 10 mg tablet Take 1 tablet by mouth once daily. - hydrOXYchloroQUINE (PLAQUENIL) 200 mg tablet Take 1 tablet by mouth two times a day. Per rheumatology - FLUoxetine (PROZAC) 40 mg capsule Take 1 capsule by mouth once daily. - estrogens conjugated (PREMARIN) 0.625 mg tablet Take 1 tablet by mouth two times a week. - WALKER ROLLATOR SEAT WITH 6 WHEELS - RED UAD - acetaminophen (TYLENOL ARTHRITIS PAIN) 650 mg CR tablet Take 650 mg by mouth every 8 hours as needed. - magnesium carb,citrate,oxide (MAGNESIUM COMPLEX ORAL) Take by mouth. Taking 500 mg magnesium - melatonin 10 mg cap Take by mouth as directed. - meloxicam (MOBIC) 15 mg tablet Take 15 mg by mouth once daily. Last dose 06/16 - amoxicillin (POLYMOX, AMOXIL) 500 mg capsule Take 4 capsules by mouth as needed. Before dental procedures. - mirabegron (MYRBETRIQ) 50 mg Tb24 Take by mouth every morning. - LOW-DOSE ASPIRIN ORAL Take 81 mg by mouth once daily. Last dose 06/16 - GLUCOSAMINE HCL/CHONDR PACHECO A NA (OSTEO BI-FLEX ORAL) Take by mouth once daily. Last dose 06/10 - multivitamins(DAILY MULTIVITAMIN TAB) Take 1 tablet by mouth once daily. Last dose 06/10 - ascorbic acid(VITAMIN C 500 MG SR CAP) Take 1,000 mg by mouth once daily. Last dose 06/10 - COLACE 100 MG CAP Take by mouth every morning. Problem List As Of Date 12/15/2024 Noted Resolved OSTEOARTHRITIS LOCALIZED, PRIMARY( Lower Leg) [*07/22/2005 Hallux valgus (acquired) [M20.10] 04/12/2008 Other complications due to other internal ortho*07/03/2008 Symptomatic menopausal or female climacteric st*08/03/2011 Anxiety [F41.9] History of knee replacement, total [Z96.659] Constipation [K59.00] Routine gynecological examination [Z01.419] 04/01/2023 Hiatal hernia [K44.9] Fatty liver [K76.0] Allergic rhinitis [J30.9] 08/31/2013 Overactive bladder [N32.81] 08/31/2013 OA (osteoarthritis) [M19.90] 08/31/2013 GERD (gastroesophageal reflux disease) [K21.9] 06/04/2015 Insomnia [G47.00] 06/04/2015 Elevated blood pressure reading without diagnos*06/04/2015 10/11/2015 Prolonged Q-T interval on ECG [R94.31] 06/04/2015 Essential hypertension with goal blood pressure*06/27/2015 Current use of proton pump inhibitor [Z79.899] 04/21/2016 07/25/2021 Elevated fasting blood sugar [R73.01] 2016 MARCELLE (obstructive sleep apnea) [G47.33] 05/24/2017 Medicare annual wellness visit, subsequent [Z00*11/04/2017 Muscle spasm [M62.838] 12/14/2017 Family history of malignant neoplasm of gastroi* Obesity [E66.9] 05/04/2018 Rheumatoid arthritis involving (more content not included)... Normal [facility] Toney 11-23-2024 TEETEEN Telephone (ZEESHANT) NIA KIRAN ([id number]) 1950 F Date Time Provider Department 11/23/24 RUT GUTIERREZ During your visit today, we recorded the following information about you: Itzel Davila RN 11/23/2024 12:15 PM Signed Ceci with [facility] calls to let provider know that patient needs a new sleep study for them to be able to supply current C-pap orders. Ceci reports that last sleep study was completed in 2018 but it was done under the old 3 % test rule and they do not honor that. Ceci reports that patient would want orders faxed to [facility]. Please review and advise, KWABENA Wolf Rebecca, APRN.TEETEE 11/24/2024 2:27 PM Signed Order written for split night sleep study to be done at [facility], please notify pt and fax order to [facility] Rut Gutierrez APRN.Bird Vazquez LPN 11/24/2024 4:29 PM Signed Faxed sleep study order to [facility]. Pt notified and understood. Bird Bloom LPN Allergies As of Date: 11/23/2024 Noted Allergy Reaction MORPHINE 11/15/2018 2 - Rash Comments: And delusions DEMEROL (MEPERIDINE (PF)) 06/19/2008 9 - Itching DILAUDID (HYDROMORPHONE (BULK)) 07/01/2009 9 - Itching PERCOCET (OXYCODONE-ACETAMINOPH EN)07/22/2005 16 - Unknown POISON MICHELLE 12/26/2012 7 - Swelling 9 - Itching 14 - Other: See Comments Comments: nausea VICODIN (HYDROCODONE-ACETAMINO PHE*02/03/2005 16 - Unknown Date Reviewed: 11/16/2024 Reviewed by: Bird Bloom LPN - Fully Assessed Reason for Visit: Orders [681] Primary Visit Diagnosis:MARCELLE on CPAP [G47.33] Order(s):POLYSOMNOGRAM (PSG) [4711700] Order #: [id number] FUTURE Prescriptions as of 11/24/2024 - CPAP/BIPAP/OTHER APAP 9-20 cmH2O DME [facility] - zolpidem (AMBIEN) 10 mg Take 1 tablet by mouth at bedtime as needed for up to 180 days. For Insomnia. - spironolactone (ALDACTONE) 25 mg tablet Take 1 tablet by mouth once daily. - omeprazole (PRILOSEC) 40 mg capsule Take 1 capsule by mouth once daily. - montelukast (SINGULAIR) 10 mg tablet Take 1 tablet by mouth daily at bedtime. - lisinopril (ZESTRIL) 10 mg tablet Take 1 tablet by mouth once daily. - hydrOXYchloroQUINE (PLAQUENIL) 200 mg tablet Take 1 tablet by mouth two times a day. Per rheumatology - FLUoxetine (PROZAC) 40 mg capsule Take 1 capsule by mouth once daily. - estrogens conjugated (PREMARIN) 0.625 mg tablet Take 1 tablet by mouth two times a week. - cyclobenzaprine (FLEXERIL) 10 mg tablet Take once a day as needed for pain. - WALKER ROLLATOR SEAT WITH 6 WHEELS - RED UAD - acetaminophen (TYLENOL ARTHRITIS PAIN) 650 mg CR tablet Take 650 mg by mouth every 8 hours as needed. - magnesium carb,citrate,oxide (MAGNESIUM COMPLEX ORAL) Take by mouth. Taking 500 mg magnesium - melatonin 10 mg cap Take by mouth as directed. - meloxicam (MOBIC) 15 mg tablet Take 15 mg by mouth once daily. Last dose 06/16 - amoxicillin (POLYMOX, AMOXIL) 500 mg capsule Take 4 capsules by mouth as needed. Before dental procedures. - mirabegron (MYRBETRIQ) 50 mg Tb24 Take by mouth every morning. - LOW-DOSE ASPIRIN ORAL Take 81 mg by mouth once daily. Last dose 06/16 - GLUCOSAMINE HCL/CHONDR PACHECO A NA (OSTEO BI-FLEX ORAL) Take by mouth once daily. Last dose 06/10 - multivitamins(DAILY MULTIVITAMIN TAB) Take 1 tablet by mouth once daily. Last dose 06/10 - ascorbic acid(VITAMIN C 500 MG SR CAP) Take 1,000 mg by mouth once daily. Last dose 06/10 - COLACE 100 MG CAP Take by mouth every morning. Problem List As Of Date 11/23/2024 Noted Resolved OSTEOARTHRITIS LOCALIZED, PRIMARY( Lower Leg) [*07/22/2005 Hallux valgus (acquired) [M20.10] 04/12/2008 Other complications due to other internal ortho*07/03/2008 Symptomatic menopausal or female climacteric st*08/03/2011 Anxiety [F41.9] History of knee replacement, total [Z96.659] Constipation [K59.00] Routine gynecological examination [Z01.419] 04/01/2023 Hiatal hernia [K44.9] Fatty liver [K76.0] Allergic rhinitis [J30.9] 08/31/2013 Overactive bladder [N32.81] 08/31/2013 OA (osteoarthritis) [M19.90] 08/31/2013 GERD (gastroesophageal reflux disease) [K21.9] 06/04/2015 Insomnia [G47.00] 06/04/2015 Elevated blood pressure reading without diagnos*06/04/2015 10/11/2015 Prolonged Q-T interval on ECG [R94.31] 06/04/2015 Essential hypertension with goal blood pressure*06/27/2015 Current use of proton pump inhibitor [Z79.899] 04/21/2016 07/25/2021 Elevated fasting blood sugar [R73.01] 2016 MARCELLE (obstructive sleep apnea) [G47.33] 05/24/2017 Medicare annual wellness visit, subsequent [Z00*11/04/2017 Muscle spasm [M62.838] 12/14/2017 Family history of malignant neoplasm of gastroi* Obesity [E66.9] 05/04/2018 Rheumatoid arthritis involving multiple sites w*05/05/2018 Other age-related cataract [H25.89] 07/27/2018 Medication management [Z79.899] 06/12/2020 Other skin changes [R23.8] 01/22/20 (more content not included)... [facility]EN [facility] (ZEESHANT) NIA KIRAN ([id number]) 1950 F Date Time Provider Department 11/21/24 RUT GUTIERREZ During your visit today, we recorded the following information about you: Bird Bloom LPN 11/21/2024 10:11 AM Signed Faxed mask/pressure change order to [facility]. Bird Bloom LPN Allergies As of Date: 11/21/2024 Noted Allergy Reaction MORPHINE 11/15/2018 2 - Rash Comments: And delusions DEMEROL (MEPERIDINE (PF)) 06/19/2008 9 - Itching DILAUDID (HYDROMORPHONE (BULK)) 07/01/2009 9 - Itching PERCOCET (OXYCODONE-ACETAMINOPH EN)07/22/2005 16 - Unknown POISON MICHELLE 12/26/2012 7 - Swelling 9 - Itching 14 - Other: See Comments Comments: nausea VICODIN (HYDROCODONE-ACETAMINO PHE*02/03/2005 16 - Unknown Date Reviewed: 11/16/2024 Reviewed by: Bird Bloom LPN - Fully Assessed Prescriptions as of 11/21/2024 - CPAP/BIPAP/OTHER APAP 9-20 cmH2O DME [facility] - zolpidem (AMBIEN) 10 mg Take 1 tablet by mouth at bedtime as needed for up to 180 days. For Insomnia. - spironolactone (ALDACTONE) 25 mg tablet Take 1 tablet by mouth once daily. - omeprazole (PRILOSEC) 40 mg capsule Take 1 capsule by mouth once daily. - montelukast (SINGULAIR) 10 mg tablet Take 1 tablet by mouth daily at bedtime. - lisinopril (ZESTRIL) 10 mg tablet Take 1 tablet by mouth once daily. - hydrOXYchloroQUINE (PLAQUENIL) 200 mg tablet Take 1 tablet by mouth two times a day. Per rheumatology - FLUoxetine (PROZAC) 40 mg capsule Take 1 capsule by mouth once daily. - estrogens conjugated (PREMARIN) 0.625 mg tablet Take 1 tablet by mouth two times a week. - cyclobenzaprine (FLEXERIL) 10 mg tablet Take once a day as needed for pain. - WALKER ROLLATOR SEAT WITH 6 WHEELS - RED UAD - acetaminophen (TYLENOL ARTHRITIS PAIN) 650 mg CR tablet Take 650 mg by mouth every 8 hours as needed. - magnesium carb,citrate,oxide (MAGNESIUM COMPLEX ORAL) Take by mouth. Taking 500 mg magnesium - melatonin 10 mg cap Take by mouth as directed. - meloxicam (MOBIC) 15 mg tablet Take 15 mg by mouth once daily. Last dose 06/16 - amoxicillin (POLYMOX, AMOXIL) 500 mg capsule Take 4 capsules by mouth as needed. Before dental procedures. - mirabegron (MYRBETRIQ) 50 mg Tb24 Take by mouth every morning. - LOW-DOSE ASPIRIN ORAL Take 81 mg by mouth once daily. Last dose 06/16 - GLUCOSAMINE HCL/CHONDR PACHECO A NA (OSTEO BI-FLEX ORAL) Take by mouth once daily. Last dose 06/10 - multivitamins(DAILY MULTIVITAMIN TAB) Take 1 tablet by mouth once daily. Last dose 06/10 - ascorbic acid(VITAMIN C 500 MG SR CAP) Take 1,000 mg by mouth once daily. Last dose 06/10 - COLACE 100 MG CAP Take by mouth every morning. Problem List As Of Date 11/21/2024 Noted Resolved OSTEOARTHRITIS LOCALIZED, PRIMARY( Lower Leg) [*07/22/2005 Hallux valgus (acquired) [M20.10] 04/12/2008 Other complications due to other internal ortho*07/03/2008 Symptomatic menopausal or female climacteric st*08/03/2011 Anxiety [F41.9] History of knee replacement, total [Z96.659] Constipation [K59.00] Routine gynecological examination [Z01.419] 04/01/2023 Hiatal hernia [K44.9] Fatty liver [K76.0] Allergic rhinitis [J30.9] 08/31/2013 Overactive bladder [N32.81] 08/31/2013 OA (osteoarthritis) [M19.90] 08/31/2013 GERD (gastroesophageal reflux disease) [K21.9] 06/04/2015 Insomnia [G47.00] 06/04/2015 Elevated blood pressure reading without diagnos*06/04/2015 10/11/2015 Prolonged Q-T interval on ECG [R94.31] 06/04/2015 Essential hypertension with goal blood pressure*06/27/2015 Current use of proton pump inhibitor [Z79.899] 04/21/2016 07/25/2021 Elevated fasting blood sugar [R73.01] 2016 MARCELLE (obstructive sleep apnea) [G47.33] 05/24/2017 Medicare annual wellness visit, subsequent [Z00*11/04/2017 Muscle spasm [M62.838] 12/14/2017 Family history of malignant neoplasm of gastroi* Obesity [E66.9] 05/04/2018 Rheumatoid arthritis involving multiple sites w*05/05/2018 Other age-related cataract [H25.89] 07/27/2018 Medication management [Z79.899] 06/12/2020 Other skin changes [R23.8] 01/21/2021 Hyponatremia [E87.1] 01/31/2021 Living will on file at physician's office [Z78.*02/04/2022 Advance directive discussed with patient [Z71.8*02/04/2022 Arthritis of left shoulder region [M19.012] 05/29/2022 LBBB (left bundle branch block) [I44.7] 05/29/2022 Acute pain of right shoulder [M25.511] 08/21/2022 Spinal stenosis of lumbar region with neurogeni*12/15/2022 Lumbar radiculopathy [M54.16] 12/15/2022 Balance disorder [R26.89] 03/24/2023 Chronic pain syndrome [G89.4] 05/06/2023 Encounter for screening for malignant neoplasm *10/14/2023 Osteopenia, senile [M85.80] 05/26/2024 Encounter Status:Closed by BIRD BLOOM on 11/21/24 [facility] Demetrius 11-16-2024 CNOV Office Visit (SLEWST ) NIA KIRAN ([id number]) 1950 F Date Time Provider Department 11/16/24 11:00 AM RUT GUTIERREZ During your visit today, we recorded the following information about you: Pulse Respiration Blood pressure Weight 71/minute 16/minute 106/72 128.4 kg Rut Gutierrez APRN.TEETEE 11/21/2024 9:33 AM Signed [facility] New Patient Evaluation PATIENT NAME: Nia Kiran DATE OF SERVICE: November 16, 2024 Recording using [employer] software for draft documentation of the visit was discussed with the patient/authorized school admissions representative; all questions welcomed and answered. Patient/authorized school admissions representative agreed to proceed CONSULTING PROVIDER: Braulio Urrutia [address] [place] [id number] REASON FOR CONSULT: Braulio Urrutia sends the patient for an opinion about MARCELLE. My findings and recommendations will be transmitted electronically via shared medical record to the consulting provider. HPI: The patient is a 74-year-old female with a history of MARCELLE, presenting for issues with her new CPAP machine. The patient was diagnosed with MARCELLE in 2018 following a sleep study at [facility] through the [place]. She has been using a CPAP machine since then, with settings of 9-20 cm H2O, and has been compliant with its use. Two to three weeks ago, she received a message on her CPAP machine stating, Your motor life has exceeded, you need to contact your provider. She contacted [facility], who instructed her to have her doctor send an order. Dr. Urrutia sent the necessary documentation, and [facility] provided her with a new CPAP machine. The new machine has a fixed pressure setting of 18 cm H2O, which the patient finds intolerable, describing it as blasting her face. She used the new machine for two nights but was unable to sleep due to the high pressure and lack of ramp time. She now has a 45 min ramp but still can't tolerate the pressure of 18. She requests that the new machine be adjusted to the same settings as her old one (9-20 cm H2O). The patient uses a SleepWeaver Advanced soft cloth nasal CPAP mask due to facial sensitivity from a previous injury that left her unable to tolerate plastic or silicone masks. She reports no issues with her current mask and has been a faithful user of her CPAP machine, stating she can't sleep without it. Her sleep schedule typically involves going to bed around 9604-6265 and waking up around 1244-3735. She denies excessive daytime sleepiness, drowsy driving, restless legs, sleep paralysis, morning headaches, nocturnal heartburn, or palpitations. She does not take naps during the day and reports good sleep quality when using her CPAP machine. She has a history of spinal stenosis but denies any symptoms of restless leg syndrome. The patient has a family history of MARCELLE, with her oldest daughter, aged 53, also diagnosed with the condition.grandchildre n. Patient Questionnaires Sleep Scores 11/10/2024 Sleep Questions Reason for visit: Sleep apnea On average, hours of sleep in 24 hours: 7 Average hours of CPAP per night: 7 Percent of nights CPAP used at least 4 hours: 100 Accidents or near accidents due to drowsy drivin 11/10/2024 [place] Sleepiness Scale Score 2 (No clinically significant daytime sleepiness) 11/10/2024 PROMIS CAT Sleep Disturbance PROMIS Sleep Disturbance T-Score 52 (within normal limits) PROMIS Sleep Disturbance Percentile 42 11/10/2024 PHQ-9 Score 0 11/10/2024 PROMIS Global Health - (T-Scores - the mean of general population = 50. Five points is a clinically meaningful difference.) Physical T-Score 42.3 Mental T-Score 48.3 PAST TREATMENTS: DME [facility] [place] PRIOR SLEEP STUDIES: 05/18/17 PSG at [facility]: AHI 33.6, O2<=88% for 43 minutes PAST MEDICAL HISTORY Diagnosis Date Acute pain of right shoulder 08/21/2022 Seeing [facility] 07/2022 Advance directive discussed with patient 02/04/2022 Discussed 01/2022: up to date Allergic rhinitis 08/31/2013 Anxiety Chronic pain syndrome 05/06/202304/2023 seeing Pain management, Dr. Atul Shaffer wart 01/21/2009 Constipation COPD (chronic obstructive pulmonary disease) (HCC) well controlled-managed by PCP Elevated fasting blood sugar 2016 Essential hypertension with goal blood pressure less than 140/90 06/27/2015 well controlled-managed by PCP Family history of malignant neoplasm of gastrointestinal tract Fatty liver Gastroesophageal reflux disease without esophagitis 06/04/2015 Hallux valgus (acquired) 04/12/2008 Hemorrhage of gastrointestinal tract, unspecified Hiatal hernia sliding History of knee replacement, total both Hyponatremia 01/31/2021 Related to Hctz Insomnia 06/04/2015 LBBB (left bundle branch block) 05/29/2022 Living will on file at physician's office (more content not included)... Normal [facility] Toney 11-07-2024 CNPN Telephone (FAMPWS) QIANANIA Garcia ([id number]) 1950 F Date Time Provider Department 11/07/24 BRAULIO URRUTIA During your visit today, we recorded the following information about you: Aiyana Loco MA 11/07/2024 1:50 PM Signed Ceci [facility] from [facility] stopped in the office with information regarding patient and recent sleep study completed. Patient's baseline sleep study was done with the 3% testing rule and now Medicare requires it to be done with the 4% testing rule. Asking if we can get this pt scheduled for a Home Sleep Test. [facility] has a Snap Home sleep study? Can call Ceci with any questions at [phone]. We can fax results to [phone]. Placed note on desk received in office from [facility]. ANETTE Bradshaw Jeffrey A, MD 11/07/2024 3:50 PM Signed Let [facility] kurtis patient know I have placed a consult to sleep med to help facilitate the management of her CPAP needs. Kathy Rowell MA 11/08/2024 8:33 AM Signed Pt notified and transferred to PSS to set up consult with sleep med. Ceci with [facility] notified of this as well. ANETTE Ya Rilee, MA 11/09/2024 11:13 AM Signed Pt scheduled with Sleep Med on 12/07/24. ANETTE Bradshaw Barbara, LPN 11/10/2024 8:05 AM Addendum Sent this to you to review on what Pt needs. Ceci Meredith from [facility] stopped in the office with information regarding patient and recent sleep study completed. Patient's baseline sleep study was done with the 3% testing rule and now Medicare requires it to be done with the 4% testing rule. Asking if we can get this pt scheduled for a Home Sleep Test. [facility] has a Snap Home sleep study? Can call Ceci with any questions at [phone]. We can fax results to [phone]. Placed note on desk received in office from [facility]. ANETTE Bradshaw Rebecca, APRN.TEETEE 11/10/2024 9:12 AM Signed I haven't seen the pt yet, she is scheduled to see me on 11/16/24. I'm fine with [employer] doing the home study but PCP will have to ok it with them (I don't know if they need a written order or if verbal is ok). Rut Gutierrez APRN.Braulio More MD 11/10/2024 3:25 PM Signed Advise [facility] that the patient has an appt with sleep Med on 11/16/2024 and they are just going to have to wait till patient is seen and evaluated. Based on the fact her last study was done in 2018 she may need a in lab study with titration to see if parameters have changed. A home study can not do this. Aiyana Loco MA 11/10/2024 4:04 PM Signed Call to Ceci at [facility] and notified her of message below from Provider, she has updated this in pt's chart. ANETTE Bradshaw Barbara, LPN 11/20/2024 2:14 PM Signed Waiting on OV to be signed so order can be sent. Bird Bloom LPN Allergies As of Date: 11/07/2024 Noted Allergy Reaction MORPHINE 11/15/2018 2 - Rash Comments: And delusions DEMEROL (MEPERIDINE (PF)) 06/19/2008 9 - Itching DILAUDID (HYDROMORPHONE (BULK)) 07/01/2009 9 - Itching PERCOCET (OXYCODONE-ACETAMINOPH EN)07/22/2005 16 - Unknown POISON MICHELLE 12/26/2012 7 - Swelling 9 - Itching 14 - Other: See Comments Comments: nausea VICODIN (HYDROCODONE-ACETAMINO PHE*02/03/2005 16 - Unknown Date Reviewed: 08/10/2024 Reviewed by: Joy Rodrigez MA - Fully Assessed Reason for Visit: Clinical Update [6820] Primary Visit Diagnosis:MARCELLE (obstructive sleep apnea) [G47.33] Order(s):CONSULT TO SLEEP MEDICINE - ADULT [[id number]] Order #: [id number]: 1 FUTURE Prescriptions as of 11/20/2024 - CPAP/BIPAP/OTHER APAP 9-20 cmH2O DME [facility] - zolpidem (AMBIEN) 10 mg Take 1 tablet by mouth at bedtime as needed for up to 180 days. For Insomnia. - spironolactone (ALDACTONE) 25 mg tablet Take 1 tablet by mouth once daily. - omeprazole (PRILOSEC) 40 mg capsule Take 1 capsule by mouth once daily. - montelukast (SINGULAIR) 10 mg tablet Take 1 tablet by mouth daily at bedtime. - lisinopril (ZESTRIL) 10 mg tablet Take 1 tablet by mouth once daily. - hydrOXYchloroQUINE (PLAQUENIL) 200 mg tablet Take 1 tablet by mouth two times a day. Per rheumatology - FLUoxetine (PROZAC) 40 mg capsule Take 1 capsule by mouth once daily. - estrogens conjugated (PREMARIN) 0.625 mg tablet Take 1 tablet by mouth two times a week. - cyclobenzaprine (FLEXERIL) 10 mg tablet Take once a day as needed for pain. - WALKER ROLLATOR SEAT WITH 6 WHEELS - RED UAD - acetaminophen (TYLENOL ARTHRITIS PAIN) 650 mg CR tablet Take 650 mg by mouth every 8 hours as needed. - magnesium carb,citrate,oxide (MAGNESIUM COMPLEX ORAL) Take by mouth. Taking 500 mg magnesium - melatonin 10 mg cap Take by mouth as directed. - meloxicam (MOBIC) 15 mg tablet Take 15 mg by mouth once daily. Last dose 06/16 - amoxicillin (POLYMOX, AMOXIL) 500 mg capsule Take 4 capsules by mouth as needed. Before dental procedures. - mirabegron (more content not included)... Normal [facility] Toney 10-27-2024 TEETEEN Telephone (FAMPWS) NIA KIRAN ([id number]) 1950 F Date Time Provider Department 10/27/24 BRAULIO URRUTIA During your visit today, we recorded the following information about you: Aiyana Loco MA 10/27/2024 1:05 PM Signed Type of form: Physician Order from [employer] Form received via fax When form is completed, Fax form to [phone] Form has been forwarded to Physician Desk: ANETTE Elizabeth Rilee, MA 10/27/2024 2:27 PM Signed Form completed by Provider and has been faxed back to number below. ANETTE Bradshaw Jeffrey A, MD 10/27/2024 2:28 PM Signed Form completed and ready to be faxed. Allergies As of Date: 10/27/2024 Noted Allergy Reaction MORPHINE 11/15/2018 2 - Rash Comments: And delusions DEMEROL (MEPERIDINE (PF)) 06/19/2008 9 - Itching DILAUDID (HYDROMORPHONE (BULK)) 07/01/2009 9 - Itching PERCOCET (OXYCODONE-ACETAMINOPH EN)07/22/2005 16 - Unknown POISON MICHELLE 12/26/2012 7 - Swelling 9 - Itching 14 - Other: See Comments Comments: nausea VICODIN (HYDROCODONE-ACETAMINO PHE*02/03/2005 16 - Unknown Date Reviewed: 08/10/2024 Reviewed by: Joy Rodrigez MA - Fully Assessed Reason for Visit: Forms [913] Cmt: [facility] Prescriptions as of 10/27/2024 - zolpidem (AMBIEN) 10 mg Take 1 tablet by mouth at bedtime as needed for up to 180 days. For Insomnia. - spironolactone (ALDACTONE) 25 mg tablet Take 1 tablet by mouth once daily. - omeprazole (PRILOSEC) 40 mg capsule Take 1 capsule by mouth once daily. - montelukast (SINGULAIR) 10 mg tablet Take 1 tablet by mouth daily at bedtime. - lisinopril (ZESTRIL) 10 mg tablet Take 1 tablet by mouth once daily. - hydrOXYchloroQUINE (PLAQUENIL) 200 mg tablet Take 1 tablet by mouth two times a day. Per rheumatology - FLUoxetine (PROZAC) 40 mg capsule Take 1 capsule by mouth once daily. - estrogens conjugated (PREMARIN) 0.625 mg tablet Take 1 tablet by mouth two times a week. - cyclobenzaprine (FLEXERIL) 10 mg tablet Take once a day as needed for pain. - WALKER ROLLATOR SEAT WITH 6 WHEELS - RED UAD - acetaminophen (TYLENOL ARTHRITIS PAIN) 650 mg CR tablet Take 650 mg by mouth every 8 hours as needed. - magnesium carb,citrate,oxide (MAGNESIUM COMPLEX ORAL) Take by mouth. Taking 500 mg magnesium - melatonin 10 mg cap Take by mouth as directed. - meloxicam (MOBIC) 15 mg tablet Take 15 mg by mouth once daily. Last dose 06/16 - amoxicillin (POLYMOX, AMOXIL) 500 mg capsule Take 4 capsules by mouth as needed. Before dental procedures. - mirabegron (MYRBETRIQ) 50 mg Tb24 Take by mouth every morning. - LOW-DOSE ASPIRIN ORAL Take 81 mg by mouth once daily. Last dose 06/16 - GLUCOSAMINE HCL/CHONDR PACHECO A NA (OSTEO BI-FLEX ORAL) Take by mouth once daily. Last dose 06/10 - multivitamins(DAILY MULTIVITAMIN TAB) Take 1 tablet by mouth once daily. Last dose 06/10 - ascorbic acid(VITAMIN C 500 MG SR CAP) Take 1,000 mg by mouth once daily. Last dose 06/10 - COLACE 100 MG CAP Take by mouth every morning. Problem List As Of Date 10/27/2024 Noted Resolved OSTEOARTHRITIS LOCALIZED, PRIMARY( Lower Leg) [*07/22/2005 Hallux valgus (acquired) [M20.10] 04/12/2008 Other complications due to other internal ortho*07/03/2008 Symptomatic menopausal or female climacteric st*08/03/2011 Anxiety [F41.9] History of knee replacement, total [Z96.659] Constipation [K59.00] Routine gynecological examination [Z01.419] 04/01/2023 Hiatal hernia [K44.9] Fatty liver [K76.0] Allergic rhinitis [J30.9] 08/31/2013 Overactive bladder [N32.81] 08/31/2013 OA (osteoarthritis) [M19.90] 08/31/2013 GERD (gastroesophageal reflux disease) [K21.9] 06/04/2015 Insomnia [G47.00] 06/04/2015 Elevated blood pressure reading without diagnos*06/04/2015 10/11/2015 Prolonged Q-T interval on ECG [R94.31] 06/04/2015 Essential hypertension with goal blood pressure*06/27/2015 Current use of proton pump inhibitor [Z79.899] 04/21/2016 07/25/2021 Elevated fasting blood sugar [R73.01] 2016 MARCELLE (obstructive sleep apnea) [G47.33] 05/24/2017 Medicare annual wellness visit, subsequent [Z00*11/04/2017 Muscle spasm [M62.838] 12/14/2017 Family history of malignant neoplasm of gastroi* Obesity [E66.9] 05/04/2018 Rheumatoid arthritis involving multiple sites w*05/05/2018 Other age-related cataract [H25.89] 07/27/2018 Medication management [Z79.899] 06/12/2020 Other skin changes [R23.8] 01/21/2021 Hyponatremia [E87.1] 01/31/2021 Living will on file at physician's office [Z78.*02/04/2022 Advance directive discussed with patient [Z71.8*02/04/2022 Arthritis of left shoulder region [M19.012] 05/29/2022 LBBB (left bundle branch block) [I44.7] 05/29/2022 Acute pain of right shoulder [M25.511] 08/21/2022 Spinal stenosis of lumbar region with neurogeni*12/15/2022 Lumbar radiculopathy [M54.16] 12/15/2022 Balance disorder [R26.89] 03/24 (more content not included)... Normal [facility] Demetrius 08-10-2024 CNOV Office Visit (FAMPWS ) NIA KIRAN ([id number]) 1950 F Date Time Provider Department 08/10/24 1:20 PM JENNI STAHL During your visit today, we recorded the following information about you: Pulse Blood pressure Weight 88/minute 111/76 127 kg Jenni Stahl APRN.[employer]ATION INSPECTOR 08/10/2024 2:07 PM Signed Chief Complaint Patient presents with: 6 Month Exam HPI Nia Kiran is a 73 year old female who presents here today for Above Complaints and left ear pain. Patient presents for 6 month follow up. States that she has had some intermittent pain to the left jaw/ear over the last 2 weeks. Does have a hx of TMJ but would like ear looked at to make sure there is no infection or wax build up. Pain is worse after dinner, relieved with Tylenol. BP- well controlled in office. Taking medication as prescribed. Denies any CP or palpitations. Insomnia- wearing a C-pap at night and takes Ambien. Only wakes up at night to use the bathroom. Stenosis- pain has been bothersome, but sees spine later today. Past medical history, appointments, medications, allergies reviewed. Previous Medical History PAST MEDICAL HISTORY Diagnosis Date Acute pain of right shoulder 08/21/2022 Seeing Jade Santiago 07/2022 Advance directive discussed with patient 02/04/2022 Discussed 01/2022: up to date Allergic rhinitis 08/31/2013 Anxiety Chronic pain syndrome 05/06/202304/2023 seeing Pain management, Dr. Atul Shaffer wart 01/21/2009 Constipation COPD (chronic obstructive pulmonary disease) (HCC) well controlled-managed by PCP Elevated fasting blood sugar 2016 Essential hypertension with goal blood pressure less than 140/90 06/27/2015 well controlled-managed by PCP Family history of malignant neoplasm of gastrointestinal tract Fatty liver Gastroesophageal reflux disease without esophagitis 06/04/2015 Hallux valgus (acquired) 04/12/2008 Hemorrhage of gastrointestinal tract, unspecified Hiatal hernia sliding History of knee replacement, total both Hyponatremia 01/31/2021 Related to Hctz Insomnia 06/04/2015 LBBB (left bundle branch block) 05/29/2022 Living will on file at physician's office 02/04/2022 DPA: Alessandra (daughter) Medicare annual wellness visit, initial 11/04/2017 Medicare Part B: 09/29/2017 last done: 11/10/2019 Medicare annual wellness visit, subsequent 11/04/2017 Medicare Part B: 09/29/2017 last done: 02/04/2022 Muscle spasm 12/14/2017 Uses prn flexeril OA (osteoarthritis) 08/31/2013 Sees Ortho for Shoulder: Dr. Mahoney Obesity, Class III, BMI 40-49.9 (morbid obesity) ([facility]) 05/04/2018 OSTEOARTHRITIS LOCALIZED, PRIMARY( Lower Leg) 07/22/2005 Osteopenia, senile 05/26/2024 DXA: 04/2024 Other age-related cataract 07/27/[address] Turcios Other complications due to other internal orthopedic device, implant, and graft 07/03/2008 Other skin changes 01/21/[address] Turcios for twice a year skin checks Overactive bladder 08/31/2013 Prolonged Q-T interval on ECG 06/04/2015 Per cardio felt to be prozac related. Rheumatoid arthritis involving multiple sites with positive rheumatoid factor ([facility]) 05/05/[address] Schmidt Severe obstructive sleep apnea 05/24/2017 compliant with CPAP Spinal stenosis of lumbar region with neurogenic claudication 12/15/2022 Symptomatic menopausal or female climacteric states 08/03/2011 Previous Surgical History PAST SURGICAL HISTORY Procedure Laterality Date ANESTHESIA CLOSED PROCEDURES KNEE JOINT 2006 LEFT ANKLE LEFT ARTHROSCOPY KNEE DIAGNOSTIC W/WO SYNOVIAL BX SPX Left 2006 CARDIAC CATH 05/19/2017 normal coronaries CATARACT EXTRACTION HX Bilateral 07/2018 and 08/2018 COLONOSCOPY FLX DX W/COLLJ SPEC WHEN PFRMD 10/04/2008 COLONOSCOPY FLX DX W/COLLJ SPEC WHEN PFRMD 12/07/2013 Colonoscopy, repeat 5 yrs COLONOSCOPY FLX DX W/COLLJ SPEC WHEN PFRMD 12/05/2018 Colonoscopy CORRECTION OF BUNION 04/2008 Left foot ESOPHAGOGASTRODUODENOS COPY TRANSORAL DIAGNOSTIC 12/05/2018 EGD PAST SURGICAL HISTORY OF 2009 ligament surgery on both thumbs REPAIR ENTEROCELE,VAG APPRCH 04/18/2019 REPAIR OF RECTOCELE 04/18/2019 ROTATOR CUFF REPAIR 10/2012 left shouldar TOTAL KNEE REPLACEMENT 01/2009 right VAGINAL HYSTERECTOMY UTERUS 250 GM/< 10/2004 WITH TVT Family History FAMILY HISTORY Problem Relation Age of Onset Diabetes Mother Coronary Artery Disease Mother 80's Cancer Father Lung Leukemia Brother No Known Problems Brother Colon Cancer Brother other (Brain Aneurism) Brother other (Other) Brother Accident age 5 No Known Problems Maternal Grandmother No Known Problems Maternal Grandfather No Known Problems Paternal Grandmother No Known Problems Paternal Grandfather No Known Problems Daughter No Known Problems Daughter Blood Disease Daughter Essential Thrombocyto (more content not included)... Normal [facility] Orthopedic Visit Reporton Orthopedic Visit Report [facility] [address] [place] [address] [address] [place] [address] OFFICE VISIT Date of Service: 08/10/24 MR#: [id number] Acct: [id number] Name: NIA KIRAN Rep #: [id number] : 1950 Provider: Dr. Jamaal Herrera MD Age/Sex: 73/F Location: [facility] [place] Status: Signed Intake Vital Signs 05/01/24 13:30 08/10/24 14:24 Height 5 ft 3 in 5 ft 3 in Weight: 279 lb BMI 49.4 Intake Visit Reasons: LUMBAR SPINE Chief Complaint: Discuss surgery options Accompanied by: Self Is patient in pain?: No Allergies poison michelle extract Allergy (Verified 08/10/24 14:26) Rash acetaminophen (From Percocet) Adverse Reaction (Verified 08/10/24 14:26) Itching codeine Adverse Reaction (Verified 08/10/24 14:26) Itching hydrocodone bitartrate (From Vicodin) Adverse Reaction (Verified 08/10/24 14:26) Itching hydromorphone HCl (From Dilaudid) Adverse Reaction (Verified 08/10/24 14:26) Itching meperidine (From Demerol) Adverse Reaction (Verified 08/10/24 14:26) Itching morphine Adverse Reaction (Verified 08/10/24 14:26) Itching oxycodone HCl (From Percocet) Adverse Reaction (Verified 08/10/24 14:26) Itching Medications ???Medication ???Instructions ???Recorded ???Confirmed ???Type ascorbic acid (vitamin C) 500 mg 500 mg PO DAILY@0800 09/16/1507/30 History tablet cyclobenzaprine 10 mg tablet 10 mg PO QHS 09/16/15 08/10/24 His tory fluoxetine 40 mg capsule 40 mg PO DAILY 09/16/15 08/10/24 H istory lisinopril 10 mg tablet 10 mg PO DAILY 09/16/15 08/10/24 H istory multivitamin with folic acid 400 1 tab PO DAILY 09/16/15 08/10/24 H istory mcg tablet zolpidem 10 mg tablet 10 mg PO QHS 09/16/15 08/10/24 His tory aspirin 81 mg tablet,delayed 81 mg PO DAILY 05/17/17 08/10/24 H istory release (Adult Low Dose Aspirin) cholecalciferol (vitamin D3) 10 400 unit PO QDAY 05/17/17 08/10/24 History mcg (400 unit) capsule glucosamine-chondroiti n 250 mg-200 1 tab PO QAM 05/17/17 08/10/24 H istory mg tablet (Osteo Bi-Flex) acetaminophen 650 mg 650 mg PO Q12H 05/01/24 08/10/24 H istory tablet,extended release (Tylenol Arthritis Pain) conjugated estrogens 0.625 mg 0.625 mg PO QDAY 05/01/24 08/10/24 History tablet (Premarin) hydroxychloroquine 200 mg tablet 200 mg PO QDAY 05/01/24 08/10/24 H istory meloxicam 15 mg tablet 15 mg PO QDAY 05/01/24 08/10/24 Hi story mirabegron 50 mg tablet,extended 50 mg PO QDAY 05/01/24 08/10/24 Hi story release 24 hr omeprazole 40 mg capsule,delayed 40 mg PO QDAY 05/01/24 08/10/24 Hi story release spironolactone 25 mg tablet 25 mg PO QDAY 05/01/24 08/10/24 Hi story calcium acetate 667 mg tablet 667 mg PO ONCE 06/06/24 08/10/24 H istory Have you fallen in the past year?: No PFSH Medical History Hypertension Osteoarthritis Insomnia Morbid obesity due to excess calories Hiatal hernia GERD (gastroesophageal reflux disease) Anxiety Surgical History History of repair of rotator cuff H/O total vaginal hysterectomy History of bunionectomy of left great toe left foot surgery left ankle surgery History of total bilateral knee replacement Family History Mother CAD (coronary artery disease) CAD in her 80's AAA Diabetes Brother Colon cancer Daughter Blood disorder Von Willinberg's Disease and Thrombocytosis Father Cancer Lung Cancer Social History Smoking Status: Never smoker alcohol intake: current HPI LUMBAR SPINE Details: This documentation accurately reflects the service provided and the decisions made by me, Dr. Jamaal Herrera MD 08/10/24 [id number]. Part of today???s visit was documented by Paul Rashid MA and Alessandra Gore RN, acting as scribe. NIA KIRAN is a 73 year old F here today to discuss her MRI results. She does see Dr. Holman in pain management and has received injections into her lumbar spine. The last injection was in March and she reports that they are no longer helpful. She complains of low back pain that is worse on the left side. She reports numbness into her left leg. She also reports pain into her right leg when she ambulates. She has no pain when she is sitting. She is not able to stand or walk for long distances, she has to hunch over and lean on a shopping cart to get relief. She does not have pain into her groin or thighs. She does not have a history of diabetes, heart or lung problems. She does not take blood thinners. She does not have a history of strokes. 06/06/24: NIA KIRAN is a 73 year old F here today for bone density and MR (more content not included)... Normal [facility] POTASSIUMon 08-02-2024 Potassium [Moles/Vol] 5.1 mmol/L Normal 3.7-5.1 [facility] Comment on above: Order Comment: Speci men Type: BLOOD SPECIMENOrdering Facility: [facility] Address: [address] [place] [address] Performed By: #### K 1, 2951-2 ####[facility] LABCLIA [id number] [place] [address] [place] Sodium SerPl-sCncon 08-03-19 25 Sodium [Moles/Vol] 136 mmol/L Normal 136-144 [facility] Comment on above: Order Comment: Speci men Type: BLOOD SPECIMENOrdering Facility: [facility] Address: [address] [place] [address] Performed By: #### K 1, 2951-2 ####[facility] LABCLIA [id number] [place] [address] [place] Basic metabolic 2000 panelon 07-31-2024 Anion gap [Moles/Vol] 9 mmol/L Normal 8-15 [facility] Comment on above: Order Comment: Speci men Type: BLOOD SPECIMEN Ordering Facility: [facility] Address: [address] [place] [address] Performed By: #### 2 4321-2 #### [facility] [id number] [address] [place] [address] [place] [place] Calcium [Mass/Vol] 9.3 mg/dL Normal 8.5-10.2 [facility] Comment on above: Order Comment: Speci men Type: BLOOD SPECIMEN Ordering Facility: [facility] Address: [address] [place] [address] Performed By: #### 2 4321-2 #### [facility] CLIA [id number] [address] [place] [address] [place] Chloride [Moles/Vol] 99 mmol/L Normal 98-107 [facility] Comment on above: Order Comment: Speci men Type: BLOOD SPECIMEN Ordering Facility: [facility] Address: [address] [place] [address] Performed By: #### 2 4321-2 #### [facility] CLIA [id number] [address] [place] [address] [place] CO2 [Moles/Vol] 25 mmol/L Normal 22-30 [facility] Comment on above: Order Comment: Speci men Type: BLOOD SPECIMEN Ordering Facility: [facility] Address: [address] [id number] Performed By: #### 2 4321-2 #### [facility] [id number] [address] [place] [address] [place] Creatinine [Mass/Vol] 0.99 mg/dL High 0.58-0.96 [facility] Comment on above: Order Comment: Kendell men Type: BLOOD SPECIMEN Ordering Facility: [facility] Address: [address] [place] [address] Performed By: #### 2 4321-2 #### [facility] [id number] [address] [place] [address] [place] Creatinine and Glomerular filtration rate.predicted panel (S/P/Bld) 61 mL/min/1.73m??? Normal >=60 [facility] Comment on above: Order Comment: Kendell black Type: BLOOD SPECIMEN Ordering Facility: [facility] Address: [address] [place] [address] Result Comment: Dora mated Glomerular Filtration Rate (eGFR) is calculated using the 2020 CKD-EPI creatinine equation. This equation utilizes serum creatinine, sex, and age as parameters. The creatinine assay has traceable calibration to isotope dilution-mass spectrometry. Refer to KDIGO guidelines for clinical interpretation. In patients with unstable renal function, e.g. those with acute kidney injury, the eGFR may not accurately reflect actual GFR. Performed By: #### 2 4321-2 #### [facility] CLIA [id number] [address] [place] [address] [place] Glucose [Mass/Vol] 118 mg/dL High 74-99 [facility] Comment on above: Order Comment: Kendell black Type: BLOOD SPECIMEN Ordering Facility: [facility] Address: [address] [place] [address] Result Comment: The [place] Diabetes Association (ADA) provides guidance for cutoff values for fasting glucose and random glucose. The ADA defines fasting as no caloric intake for at least 8 hours. Fasting plasma glucose results between 100 to 125 mg/dL indicate increased risk for diabetes (prediabetes). Fasting plasma glucose results greater than or equal to 126 mg/dL meet the criteria for diagnosis of diabetes. In the absence of unequivocal hyperglycemia, results should be confirmed by repeat testing. In a patient with classic symptoms of hyperglycemia or hyperglycemic crisis, random plasma glucose results greater than or equal to 200 mg/dL meet the criteria for diagnosis of diabetes. Reference: Standards of Medical Care in Diabetes 2016, [place] Diabetes Association. Diabetes Care. 2016.39(Suppl 1). Performed By: #### 2 4321-2 #### [facility] CLIA [id number] [address] [place] [address] [place] Potassium [Moles/Vol] 5.3 mmol/L High 3.7-5.1 [facility] Comment on above: Order Comment: Kendell black Type: BLOOD SPECIMEN Ordering Facility: [facility] Address: [address] [place] [address] Performed By: #### 2 4321-2 #### [facility] [id number] [address] [place] [address] [place] Sodium [Moles/Vol] 133 mmol/L Low 136-144 [facility] Comment on above: Order Comment: Kendell black Type: BLOOD SPECIMEN Ordering Facility: [facility] Address: [address] [place] [address] Performed By: #### 2 4321-2 #### [facility] [id number] [address] [place] [address] [place] Urea nitrogen [Mass/Vol] 25 mg/dL High 7-21 [facility] Comment on above: Order Comment: Kendell black Type: BLOOD SPECIMEN Ordering Facility: [facility] Address: [address] [place] [address] Performed By: #### 2 4321-2 #### [facility] [id number] [address] [place] [address] [place] HbA1c (Bld)on 07-31-2024 Average glucose Estimated from glycated hemoglobin (Bld) [Mass/Vol] 120 mg/dL Normal [facility] Comment on above: Order Comment: Kendell black Type: BLOOD SPECIMEN Ordering Facility: [facility] Address: [address] [place] [address] Result Comment: eAG: (Estimated average glucose) is a calculated value from HgbA1c and is school admissions representative of the average blood glucose level in the last 2-3 month period. Performed By: #### 2 4321-2 #### [facility] CLIA [id number] [address] [place] [address] [place] HbA1c (Bld) [Mass fraction] 5.8 % High 4.3-5.6 [facility] Comment on above: Order Comment: Kendell black Type: BLOOD SPECIMEN Ordering Facility: [facility] Address: [address] [place] [address] Result Comment: [place] Diabetes Association guidelines indicate that patients with HgbA1c in the range 5.7-6.4% are at increased risk for development of diabetes, and intervention by lifestyle modification may be beneficial. HgbA1c greater or equal to 6.5% is considered diagnostic of diabetes. Performed By: #### 2 4321-2 #### [facility] [id number] [address] [place] [address] [facility] [place] LIPID PANEL, NONFASTINGon Cholesterol [Mass/Vol] 181 mg/dL Normal <200 [facility] Comment on above: Order Comment: Kendell black Type: BLOOD SPECIMEN Ordering Facility: [facility] Address: [address] [place] [address] Result Comment: <200 mg/dL, Desirable 200-239 mg/dL, Borderline high >239 mg/dL, High Performed By: #### 2 4321-2 #### [facility] CLIA [id number] [address] [place] [address] [place] HDL CHOLESTEROL, NF 73 mg/dL Normal >39 [facility] Comment on above: Order Comment: Kendell black Type: BLOOD SPECIMEN Ordering Facility: [facility] Address: [address] [place] [address] Result Comment: 40-5 9 mg/dL, Acceptable >59 mg/dL, High: Negative risk factor for coronary heart disease <40 mg/dL, Low: Positive risk factor for coronary heart disease Performed By: #### 2 4321-2 #### [facility] CLIA [id number] [address] [place] [address] [place] LDL CHOLESTEROL CALCULATED, NF 99 mg/dL Normal <100 [facility] Comment on above: Order Comment: Kendell black Type: BLOOD SPECIMEN Ordering Facility: [facility] Address: [address] [place] [address] Result Comment: <100 mg/dL, Optimal 100-129 mg/dL, Near optimal/above optimal 130-159 mg/dL, Borderline high 160-189 mg/dL, High >189 mg/dL, Very high Secondary prevention optimal LDL Cholesterol levels are recommended to be <70 mg/dL LDL cholesterol is calculated using the Garcia-NIH equation. Performed By: #### 2 4321-2 #### [facility] [id number] [address] [place] [address] [place] LDL/HDL RATIO, NF 1.36 mg/dL Normal <2.54 [facility] Comment on above: Order Comment: Kendell black Type: BLOOD SPECIMEN Ordering Facility: [facility] Address: [address] [place] [address] Result Comment: Jayme hagen: 1. National Cholesterol Education Program ATP III Guideline At-A-Glance Quick Desk Reference: National Heart, Lung, and Blood [place]. National Institutes of Health. 2001: NIH Publication No. 01-3305. 2. An International Atherosclerosis Society position paper: global recommendations for the management of dyslipidemia: executive summary, Atherosclerosis. 2014: 232(2):410-413. Performed By: #### 2 4321-2 #### [facility] CLIA [id number] [address] [place] [address] [place] NON HDL CHOL, NF 108 mg/dL Normal <130 [facility] Comment on above: Order Comment: Speci men Type: BLOOD SPECIMEN Ordering Facility: [facility] Address: [address] [place] [address] Result Comment: <130 mg/dL, Optimal 130-159 mg/dL, Near optimal/above optimal 160-189 mg/dL, Borderline high 190-219 mg/dL, High >219 mg/dL, Very high Secondary prevention optimal non HDL Cholesterol levels are recommended to be <100 mg/dL Performed By: #### 2 4321-2 #### [facility] CLIA [id number] [address] [place] [address] [place] T CHOL/HDL RATIO NF 2.48 mg/dL Normal <5.10 [facility] Comment on above: Order Comment: Speci men Type: BLOOD SPECIMEN Ordering Facility: [facility] Address: [address] [place] [address] Performed By: #### 2 4321-2 #### [facility] CLIA [id number] [address] [place] [address] [place] TRIGLYCERIDES, NF 44 mg/dL Normal <150 [facility] Comment on above: Order Comment: Speci men Type: BLOOD SPECIMEN Ordering Facility: [facility] Address: [address] [place] [address] Result Comment: <150 mg/dL, Normal 150-199 mg/dL, Borderline high 200-499 mg/dL, High >499 mg/dL, Very high Performed By: #### 2 4321-2 #### [facility] CLIA [id number] [address] [place] [address] [place] VLDL CHOLESTEROL, NF 7 mg/dL Normal <30 [facility] Comment on above: Order Comment: Speci men Type: BLOOD SPECIMEN Ordering Facility: [facility] Address: [address] [place] [address] Performed By: #### 2 4321-2 #### [facility] CLIA [id number] [address] [place] [address] [place] [facility] CNOVon 07-03-2024 CNOV Office Visit (FAMPWS ) NIA KIRAN ([id number]) 1950 F Date Time Provider Department 07/03/24 11:00 AM JENNI STAHL During your visit today, we recorded the following information about you: Pulse Blood pressure Weight 98/minute 108/75 129 kg Jenni Stahl APRN.MARINE EQUIPMENT PRESERVATION INSPECTOR 07/03/2024 11:12 AM Signed Chief Complaint Patient presents with: ER F/U HPI Nia Kiran is a 73 year old female who presents here today for Above Complaints.. Left Index Finger Laceration: - Laceration occurred on 06/27 while trimming hedges. - Seen in [facility] ER, where 8 sutures were placed for a Y-shaped laceration at the distal left index finger. - Reports healing well with no drainage. Past medical history, appointments, medications, allergies reviewed. Previous Medical History PAST MEDICAL HISTORY Diagnosis Date Acute pain of right shoulder 08/21/2022 Seeing Jade Santiago 07/2022 Advance directive discussed with patient 02/04/2022 Discussed 01/2022: up to date Allergic rhinitis 08/31/2013 Anxiety Chronic pain syndrome 05/06/202304/2023 seeing Pain management, Dr. Atul Shaffer wart 01/21/2009 Constipation COPD (chronic obstructive pulmonary disease) (HCC) well controlled-managed by PCP Elevated fasting blood sugar 2016 Essential hypertension with goal blood pressure less than 140/90 06/27/2015 well controlled-managed by PCP Family history of malignant neoplasm of gastrointestinal tract Fatty liver Gastroesophageal reflux disease without esophagitis 06/04/2015 Hallux valgus (acquired) 04/12/2008 Hemorrhage of gastrointestinal tract, unspecified Hiatal hernia sliding History of knee replacement, total both Hyponatremia 01/31/2021 Related to Hctz Insomnia 06/04/2015 LBBB (left bundle branch block) 05/29/2022 Living will on file at physician's office 02/04/2022 DPA: Alessandra (daughter) Medicare annual wellness visit, initial 11/04/2017 Medicare Part B: 09/29/2017 last done: 11/10/2019 Medicare annual wellness visit, subsequent 11/04/2017 Medicare Part B: 09/29/2017 last done: 02/04/2022 Muscle spasm 12/14/2017 Uses prn flexeril OA (osteoarthritis) 08/31/2013 Sees Ortho for Shoulder: Dr. Mahoney Obesity, Class III, BMI 40-49.9 (morbid obesity) ([facility]) 05/04/2018 OSTEOARTHRITIS LOCALIZED, PRIMARY( Lower Leg) 07/22/2005 Osteopenia, senile 05/26/2024 DXA: 04/2024 Other age-related cataract 07/27/[address] Turcios Other complications due to other internal orthopedic device, implant, and graft 07/03/2008 Other skin changes 01/21/[address] Turcios for twice a year skin checks Overactive bladder 08/31/2013 Prolonged Q-T interval on ECG 06/04/2015 Per cardio felt to be prozac related. Rheumatoid arthritis involving multiple sites with positive rheumatoid factor ([facility]) 05/05/[address] Schmidt Severe obstructive sleep apnea 05/24/2017 compliant with CPAP Spinal stenosis of lumbar region with neurogenic claudication 12/15/2022 Symptomatic menopausal or female climacteric states 08/03/2011 Previous Surgical History PAST SURGICAL HISTORY Procedure Laterality Date ANESTHESIA CLOSED PROCEDURES KNEE JOINT 2006 LEFT ANKLE LEFT ARTHROSCOPY KNEE DIAGNOSTIC W/WO SYNOVIAL BX SPX Left 2006 CARDIAC CATH 05/19/2017 normal coronaries CATARACT EXTRACTION HX Bilateral 07/2018 and 08/2018 COLONOSCOPY FLX DX W/COLLJ SPEC WHEN PFRMD 10/04/2008 COLONOSCOPY FLX DX W/COLLJ SPEC WHEN PFRMD 12/07/2013 Colonoscopy, repeat 5 yrs COLONOSCOPY FLX DX W/COLLJ SPEC WHEN PFRMD 12/05/2018 Colonoscopy CORRECTION OF BUNION 04/2008 Left foot ESOPHAGOGASTRODUODENOS COPY TRANSORAL DIAGNOSTIC 12/05/2018 EGD PAST SURGICAL HISTORY OF 2009 ligament surgery on both thumbs REPAIR ENTEROCELE,VAG APPRCH 04/18/2019 REPAIR OF RECTOCELE 04/18/2019 ROTATOR CUFF REPAIR 10/2012 left shouldar TOTAL KNEE REPLACEMENT 01/2009 right VAGINAL HYSTERECTOMY UTERUS 250 GM/< 10/2004 WITH TVT Family History FAMILY HISTORY Problem Relation Age of Onset Diabetes Mother Coronary Artery Disease Mother 80's Cancer Father Lung Leukemia Brother No Known Problems Brother Colon Cancer Brother other (Brain Aneurism) Brother other (Other) Brother Accident age 5 No Known Problems Maternal Grandmother No Known Problems Maternal Grandfather No Known Problems Paternal Grandmother No Known Problems Paternal Grandfather No Known Problems Daughter No Known Problems Daughter Blood Disease Daughter Essential Thrombocytosis and Von Willinbers Disease No Known Problems Daughter Patient Allergies ALLERGIES Allergen Reactions Morphine Rash And delusions Demerol [Meperidine* Itching Dilaudid [Hydromorp* Itching Percocet [Oxycodone* Unknown Poison Michelle Swelling, Itching, Other: See Comments nausea Vicodin [Hydrocodon* Unknown Curren (more content not included)... Normal [facility] CNOVon 06-27-2024 CNOV Office Visit (UCWSTR ) NIA KIRAN ([id number]) 1950 F Date Time Provider Department 06/27/24 5:[address] 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 She was trimming her hedges Left index finger made contact Exam reveals starburst like laceration PIP joint doubled in size Limited and reduced ROM Given complexity/mechanism of laceration and concerns for open fracture Referred to ED Allergies As of Date: 06/27/2024 Noted Allergy Reaction MORPHINE 11/15/2018 2 - Rash Comments: And delusions DEMEROL (MEPERIDINE (PF)) 06/19/2008 9 - Itching DILAUDID (HYDROMORPHONE (BULK)) 07/01/2009 9 - Itching PERCOCET (OXYCODONE-ACETAMINOPH EN)07/22/2005 16 - Unknown POISON MICHELLE 12/26/2012 7 - Swelling 9 - Itching 14 - Other: See Comments Comments: nausea VICODIN (HYDROCODONE-ACETAMINO PHE*02/03/2005 16 - Unknown Date Reviewed: 06/27/2024 Reviewed by: Michelle Cortez MA - Fully Assessed Reason for Visit: Laceration [1747] Cmt: left index finger, cutting hedges x 1 hour Primary Visit Diagnosis:Laceration of left index finger, foreign body presence unspecified, nail damage status unspecified, initial encounter [S61.211A] Prescriptions as of 06/27/2024 - omeprazole (PRILOSEC) 40 mg capsule Take 1 capsule by mouth once daily. - cyclobenzaprine (FLEXERIL) 10 mg tablet Take once a day as needed for pain. - FLUoxetine (PROZAC) 40 mg capsule Take 1 capsule by mouth once daily. - lisinopril (ZESTRIL) 10 mg tablet Take 1 tablet by mouth once daily. - montelukast (SINGULAIR) 10 mg tablet Take 1 tablet by mouth daily at bedtime. - spironolactone (ALDACTONE) 25 mg tablet Take 1 tablet by mouth once daily. - zolpidem (AMBIEN) 10 mg Take 1 tablet by mouth at bedtime as needed for up to 180 days. For Insomnia. - WALKER ROLLATOR SEAT WITH 6 WHEELS - RED UAD - acetaminophen (TYLENOL ARTHRITIS PAIN) 650 mg CR tablet Take 650 mg by mouth every 8 hours as needed. - magnesium carb,citrate,oxide (MAGNESIUM COMPLEX ORAL) Take by mouth. Taking 500 mg magnesium - melatonin 10 mg cap Take by mouth as directed. - meloxicam (MOBIC) 15 mg tablet Take 15 mg by mouth once daily. Last dose 06/16 - estrogens conjugated (PREMARIN) 0.625 mg tablet Take 1 tablet by mouth two times a week. - hydrOXYchloroQUINE (PLAQUENIL) 200 mg tablet Take 1 tablet by mouth twice daily. Per rheumatology - amoxicillin (POLYMOX, AMOXIL) 500 mg capsule Take 4 capsules by mouth as needed. Before dental procedures. - mirabegron (MYRBETRIQ) 50 mg Tb24 Take by mouth every morning. - LOW-DOSE ASPIRIN ORAL Take 81 mg by mouth once daily. Last dose 06/16 - GLUCOSAMINE HCL/CHONDR PACHECO A NA (OSTEO BI-FLEX ORAL) Take by mouth once daily. Last dose 06/10 - multivitamins(DAILY MULTIVITAMIN TAB) Take 1 tablet by mouth once daily. Last dose 06/10 - ascorbic acid(VITAMIN C 500 MG SR CAP) Take 1,000 mg by mouth once daily. Last dose 06/10 - COLACE 100 MG CAP Take by mouth every morning. Problem List As Of Date 06/27/2024 Noted Resolved OSTEOARTHRITIS LOCALIZED, PRIMARY( Lower Leg) [*07/22/2005 Hallux valgus (acquired) [M20.10] 04/12/2008 Other complications due to other internal ortho*07/03/2008 Symptomatic menopausal or female climacteric st*08/03/2011 Anxiety [F41.9] History of knee replacement, total [Z96.659] Constipation [K59.00] Routine gynecological examination [Z01.419] 04/01/2023 Hiatal hernia [K44.9] Fatty liver [K76.0] Allergic rhinitis [J30.9] 08/31/2013 Overactive bladder [N32.81] 08/31/2013 OA (osteoarthritis) [M19.90] 08/31/2013 GERD (gastroesophageal reflux disease) [K21.9] 06/04/2015 Insomnia [G47.00] 06/04/2015 Elevated blood pressure reading without diagnos*06/04/2015 10/11/2015 Prolonged Q-T interval on ECG [R94.31] 06/04/2015 Essential hypertension with goal blood pressure*06/27/2015 Current use of proton pump inhibitor [Z79.899] 04/21/2016 07/25/2021 Elevated fasting blood sugar [R73.01] 2016 MARCELLE (obstructive sleep apnea) [G47.33] 05/24/2017 Medicare annual wellness visit, subsequent [Z00*11/04/2017 Muscle spasm [M62.838] 12/14/2017 Family history of malignant neoplasm of gastroi* Obesity [E66.9] 05/04/2018 Rheumatoid arthritis involving multiple sites w*05/05/2018 Other age-related cataract [H25.89] 07/27/2018 Medication management [Z79.899] 06/12/2020 Other skin changes [R23.8] 01/21/2021 Hyponatremia [E87.1] 01/31/2021 Living will on file at physician's office [Z78.*02/04/2022 Advance directive discussed with patient [Z71.8*02/04/2022 Arthritis of left shoulder region [M19.012] 05/29/2022 LBBB (l (more content not included)... Normal [facility] Orthopedic Visit Reporton Orthopedic Visit Report [facility] [address] [place] [address] [place] [address] OFFICE VISIT Date of Service: 06/06/24 MR#: [id number] Acct: [id number] Name: NIA KIRAN Rep #: [id number] : 1950 Provider: VANNESSA Sommers Age/Sex: 73/F Location: [facility] Status: Signed Intake Vital Signs 05/01/24 13:30 Height 5 ft 3 in Weight: 291 lb 4 oz BMI 51.5 Intake Visit Reasons: LUMBAR SPINE Chief Complaint: MRI and Bone Density Review Accompanied by: Self Is patient in pain?: Yes Pain scale (1-10): 8 Allergies poison michelle extract Allergy (Verified 06/06/24 12:54) Rash acetaminophen (From Percocet) Adverse Reaction (Verified 06/06/24 12:54) Itching codeine Adverse Reaction (Verified 06/06/24 12:54) Itching hydrocodone bitartrate (From Vicodin) Adverse Reaction (Verified 06/06/24 12:54) Itching hydromorphone HCl (From Dilaudid) Adverse Reaction (Verified 06/06/24 12:54) Itching meperidine (From Demerol) Adverse Reaction (Verified 06/06/24 12:54) Itching morphine Adverse Reaction (Verified 06/06/24 12:54) Itching oxycodone HCl (From Percocet) Adverse Reaction (Verified 06/06/24 12:54) Itching Medications ???Medication ???Instructions ???Recorded ???Confirmed ???Type ascorbic acid (vitamin C) 500 mg 500 mg PO DAILY@0800 09/16/15 04/0 10/23 History tablet cyclobenzaprine 10 mg tablet 10 mg PO QHS 09/16/15 06/06/24 His tory fluoxetine 40 mg capsule 40 mg PO DAILY 09/16/15 06/06/24 H istory lisinopril 10 mg tablet 10 mg PO DAILY 09/16/15 06/06/24 H istory multivitamin with folic acid 400 1 tab PO DAILY 09/16/15 06/06/24 H istory mcg tablet zolpidem 10 mg tablet 10 mg PO QHS 09/16/15 06/06/24 His tory aspirin 81 mg tablet,delayed 81 mg PO DAILY 05/17/17 06/06/24 H istory release (Adult Low Dose Aspirin) cholecalciferol (vitamin D3) 10 400 unit PO QDAY 05/17/17 06/06/24 History mcg (400 unit) capsule glucosamine-chondroiti n 250 mg-200 1 tab PO QAM 05/17/17 06/06/24 H istory mg tablet (Osteo Bi-Flex) acetaminophen 650 mg 650 mg PO Q12H 05/01/24 06/06/24 H istory tablet,extended release (Tylenol Arthritis Pain) conjugated estrogens 0.625 mg 0.625 mg PO QDAY 05/01/24 06/06/24 History tablet (Premarin) hydroxychloroquine 200 mg tablet 200 mg PO QDAY 05/01/24 06/06/24 H istory meloxicam 15 mg tablet 15 mg PO QDAY 05/01/24 06/06/24 Hi story mirabegron 50 mg tablet,extended 50 mg PO QDAY 05/01/24 06/06/24 Hi story release 24 hr omeprazole 40 mg capsule,delayed 40 mg PO QDAY 05/01/24 06/06/24 Hi story release spironolactone 25 mg tablet 25 mg PO QDAY 05/01/24 06/06/24 Hi story calcium acetate 667 mg tablet 667 mg PO ONCE 06/06/24 06/06/24 H istory Have you fallen in the past year?: No PFSH Medical History (Updated 06/06/24 @ 13:42 by Lacey Edil, PA) Hypertension Osteoarthritis Insomnia Morbid obesity due to excess calories Hiatal hernia GERD (gastroesophageal reflux disease) Anxiety Surgical History History of repair of rotator cuff H/O total vaginal hysterectomy History of bunionectomy of left great toe left foot surgery left ankle surgery History of total bilateral knee replacement Family History Mother CAD (coronary artery disease) CAD in her 80's AAA Diabetes Brother Colon cancer Daughter Blood disorder Von Willinberg's Disease and Thrombocytosis Father Cancer Lung Cancer Social History Smoking Status: Never smoker alcohol intake: current HPI LUMBAR SPINE Details: This documentation accurately reflects the service provided and the decisions made by me, VANNESSA Sommers 06/06/24 1250. Part of today???s visit was documented by Mary Garcia ATC, acting as scribe. NIA KIRAN is a 73 year old F here today for bone density and MRI review. Patient states the pain has stayed the same since her last visit. Says that this pain continues to make it difficult for her to stand or walk for longer than 10 minutes at a time. Says that this has significantly decreased her quality of life and has made it difficult for her to enjoy things that she wishes to do such as traveling with her granddaughters. She is scheduled for an injection tomorrow with Dr. Holman. No diabetes, no heart or lung issues, no blood thinners. Hysterectomy surgery incision. Denies any other abdominal surgeries. Patient sees Dr. Lopez at the [facility] rheumatology. 05/01/2024: NIA KIRAN is a 73 year old F here today NEW patient for low back pain that she has been having for 2 years. She did have an MRI at [facility] 2 years ago and she did bring the report today with her. She does have (more content not included)... Normal [facility] Spine Lumbar (Routine)on Spine Lumbar (Routine) [facility] Imaging Services [address] [place] [address] Spine Lumbar (Routine) MR#: [id number] Acct: [id number] Name: NIA KIRAN Rep #: [id number] : 1950 F 73 From: Emeka cowan MD PCP: Dr. Braulio Urrutia MD Status: DEP CLI Study: Spine Lumbar (Routine) Date of Exam: 05/29/24 Exam# [id number] Ordering Dr: Lacey Solo EXAM: MRI lumbar spine without contrast. CLINICAL HISTORY: Back pain. COMPARISON: Lumbar spine radiograph 05/02/2019 TECHNIQUE: Multiplanar multisequence MRI of the lumbar spine without contrast. FINDINGS: Moderate dextroscoliosis. Lumbar lordosis is maintained. Grade 1 anterolisthesis of L5 on S1 vertebral body heights are maintained. Multilevel loss of disc space most prominent at L2-L3 and L3-L4.. Heterogenous marrow signal, without suspicious replacement. There is no abnormal bone STIR signal. The included distal thoracic cord is normal in caliber and signal. The conus medullaris terminates at L1 level. There is no clumping of the nerve roots. Advanced multilevel degenerative changes of the lumbar spine, including endplate remodeling, facet degenerative changes, disc bulges and ligamentum flavum hypertrophy. L1/2: Disc bulge and facet degenerative changes with mild canal stenosis. Mild bilateral neural foraminal narrowing.. L2/3: Circumferential disc bulge, tlvf-ebsgtcd-pcjd-righ t facet degenerative changes and ligamentum flavum hypertrophy with moderate canal stenosis. Mild bilateral neural foraminal narrowing.. L3/4: Disc bulge asymmetric to the left, ligamentum flavum hypertrophy and qwjw-edbqjqe-tsph-righ t facet degenerative changes moderate canal stenosis. Left subarticular recess narrowing. Moderate right and mild left neural foraminal narrowing.. L4/5: Circumferential disc bulge, ligamentum flavum hypertrophy and facet degenerative changes with severe canal stenosis. Bilateral subarticular recess narrowing. Mild bilateral neural foraminal narrowing. L5/S1: Circumferential disc bulge, ligamentum flavum hypertrophy and facet degenerative changes with severe canal stenosis. Bilateral subarticular recess narrowing. Severe bilateral neural foraminal narrowing, with mass effect on the bilateral exiting L5 nerve roots.. Diffuse fatty atrophy of the bilateral paraspinal musculature MRI/Spine Lumbar (Routine) IMPRESSION: Advanced multilevel degenerative changes of the lumbar spine, with up to severe canal stenosis and neural foraminal narrowing, most prominent at L5-S1. Multilevel subarticular recess narrowing. Reading Location: [facility] CC: VANNESSA Sommers; Dr. Braulio Urrutia MD 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: Signed Normal [facility] Bone density reportOrdered B y: Amanda Soni on 05-24-2024 Study report Skeletal system DXA [facility] Imaging Services [address] [place] [address] Dexa Bone Density Study MR#: [id number] Acct: [id number] Name: NIA KIRAN Rep #: [id number] : 1950 F 73 From: Baljinder Shafer DO PCP: Dr. Braulio Urrutia MD Status: REG CLI Study:Dexa Bone Density Study Date of Exam: 05/23/24 Exam# [id number] Ordering Dr: Matt Solo EXAM: DEXA examination lumbar spine and both hips. CLINICAL HISTORY: 73-year-old female who is postmenopausal. COMPARISON: None TECHNIQUE: DEXA examination of lumbar spine and both hips. FINDINGS: DEXA examination of lumbar spine shows a bone mineral density to measure 1.362 grams/centimeter squared. T-score measures 2.9 and Z-score measures 5.1. DEXA examination left femoral neck measures 0.791 grams/centimeter squared. T-score measures -0.5 and Z-score measures 1.4. Bone mineral density of the total left hip measures 1.002 grams/centimeter squared. T-score measures 0.5 and Z-score measures 2.1. DEXA examination of the right femoral neck shows the bone mineral density to measure 0.704 grams/centimeter squared. T-score measures -1.3 and Z-score measures 0.6. Total bone mineral density of the right hip measures 0.950 grams/centimeter squared. T-score measures 0.1 and Z-score measures 1.7. FRAX: The 10 year fracture risk index for major osteoporotic fracture is 19% andfor a hip fracture is 4.8%. BD/Dexa Bone Density Study IMPRESSION: Patient demonstrates osteopenia of the right hip. Patient demonstrates normal bone mineral density of the lumbar spine and left hip Reading Location: [id number] CC: VANNESSA Sommers; Dr. Braulio Urrutia MD ~ 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: Signed [facility] Dexa Bone Density Studyon Dexa Bone Density Study [facility] Imaging Services [address], [place] [address] Dexa Bone Density Study MR#: [id number] Acct: [id number] Name: NIA KIRAN Rep #: [id number] : 1950 F 73 From: Amanda Figueroa PCP: Dr. Braulio Urrutia MD Status: REG CLI Study: Dexa Bone Density Study Date of Exam: 05/23/24 Exam# [id number] Ordering Dr: Lacey Solo EXAM: DEXA examination lumbar spine and both hips. CLINICAL HISTORY: 73-year-old female who is postmenopausal. COMPARISON: None TECHNIQUE: DEXA examination of lumbar spine and both hips. FINDINGS: DEXA examination of lumbar spine shows a bone mineral density to measure 1.362 grams/centimeter squared. T-score measures 2.9 and Z-score measures 5.1. DEXA examination left femoral neck measures 0.791 grams/centimeter squared. T-score measures -0.5 and Z-score measures 1.4. Bone mineral density of the total left hip measures 1.002 grams/centimeter squared. T-score measures 0.5 and Z-score measures 2.1. DEXA examination of the right femoral neck shows the bone mineral density to measure 0.704 grams/centimeter squared. T-score measures -1.3 and Z-score measures 0.6. Total bone mineral density of the right hip measures 0.950 grams/centimeter squared. T-score measures 0.1 and Z-score measures 1.7. FRAX: The 10 year fracture risk index for major osteoporotic fracture is 19% and for a hip fracture is 4.8%. BD/Dexa Bone Density Study IMPRESSION: Patient demonstrates osteopenia of the right hip. Patient demonstrates normal bone mineral density of the lumbar spine and left hip Reading Location: [id number] CC: VANNESSA Sommers; Dr. Braulio Urrutia MD 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: Signed Normal [facility] L/S Spine Min 4 Viewson L/S Spine Min 4 Views [facility] Imaging Services [address] [place], [place] [id number] L/S Spine Min 4 Views MR#: [id number] Acct: [id number] Name: NIA KIRAN Rep #: [id number] : 1950 F 73 From: Chichi Fermin DO PCP: Status: DEP AMB Study: L/S Spine Min 4 Views Date of Exam: 05/01/24 Exam# [id number] Ordering Dr: Lacye Solo PROCEDURE: L/S SPINE MIN 4 VIEWS TECHNIQUE: Four views of the lumbar spine were obtained. COMPARISON: None. FINDINGS: Lumbar vertebral body heights are preserved. No acute fracture. Multilevel narrowing of the intervertebral disc spaces. Mild anterior vertebral body osteophyte formation. Mild dextroscoliosis of the lumbar spine. RAD/L/S Spine Min 4 Views IMPRESSION: Degenerative changes of the lumbar spine. No acute fracture or subluxation. Dextroscoliosis of the lumbar spine. Reading Location: [facility] CC: VANNESSA Sommers 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: Signed Normal [facility] Orthopedic Visit Reporton Orthopedic Visit Report [facility] [address] [place] [address] [address] [place] [address] OFFICE VISIT Date of Service: 05/01/24 MR#: [id number] Acct: [id number] Name: NIA KIRAN Rep #: [id number] : 1950 Provider: VANNESSA Sommers Age/Sex: 73/F Location: [facility] Status: Signed Intake Vital Signs 05/01/24 13:30 Height 5 ft 3 in Weight: 291 lb 4 oz BMI 51.5 Intake Visit Reasons: LUMBAR SPINE Allergies poison michelle extract Allergy (Verified 05/01/24 13:31) Rash acetaminophen (From Percocet) Adverse Reaction (Verified 05/01/24 13:31) Itching codeine Adverse Reaction (Verified 05/01/24 13:31) Itching hydrocodone bitartrate (From Vicodin) Adverse Reaction (Verified 05/01/24 13:31) Itching hydromorphone HCl (From Dilaudid) Adverse Reaction (Verified 05/01/24 13:31) Itching meperidine (From Demerol) Adverse Reaction (Verified 05/01/24 13:31) Itching morphine Adverse Reaction (Verified 05/01/24 13:31) Itching oxycodone HCl (From Percocet) Adverse Reaction (Verified 05/01/24 13:31) Itching Medications ???Medication ???Instructions ???Recorded ???Confirmed ???Type ascorbic acid (vitamin C) 500 mg 500 mg PO DAILY@0800 09/16/15 03/05/23 History tablet cyclobenzaprine 10 mg tablet 10 mg PO QHS 09/16/15 05/01/24 His tory fluoxetine 40 mg capsule 40 mg PO DAILY 09/16/15 05/01/24 H istory lisinopril 10 mg tablet 10 mg PO DAILY 09/16/15 05/01/24 H istory multivitamin with folic acid 400 1 tab PO DAILY 09/16/15 05/01/24 H istory mcg tablet zolpidem 10 mg tablet 10 mg PO QHS 09/16/15 05/01/24 His tory aspirin 81 mg tablet,delayed 81 mg PO DAILY 05/17/17 05/01/24 H istory release (Adult Low Dose Aspirin) cholecalciferol (vitamin D3) 10 400 unit PO QDAY 05/17/17 05/01/24 History mcg (400 unit) capsule glucosamine-chondroiti n 250 mg-200 1 tab PO QAM 05/17/17 05/01/24 H istory mg tablet (Osteo Bi-Flex) acetaminophen 650 mg 650 mg PO Q12H 05/01/24 05/01/24 H istory tablet,extended release (Tylenol Arthritis Pain) conjugated estrogens 0.625 mg 0.625 mg PO QDAY 05/01/24 05/01/24 History tablet (Premarin) hydroxychloroquine 200 mg tablet 200 mg PO QDAY 05/01/24 05/01/24 H istory meloxicam 15 mg tablet 15 mg PO QDAY 05/01/24 05/01/24 Hi story mirabegron 50 mg tablet,extended 50 mg PO QDAY 05/01/24 05/01/24 Hi story release 24 hr omeprazole 40 mg capsule,delayed 40 mg PO QDAY 05/01/24 05/01/24 Hi story release spironolactone 25 mg tablet 25 mg PO QDAY 05/01/24 05/01/24 Hi story Have you fallen in the past year?: No PFSH Medical History (Updated 05/01/24 @ 18:30 by VANNESSA Sommers) Hypertension Osteoarthritis Insomnia Morbid obesity due to excess calories Hiatal hernia GERD (gastroesophageal reflux disease) Anxiety Surgical History History of repair of rotator cuff H/O total vaginal hysterectomy History of bunionectomy of left great toe left foot surgery left ankle surgery History of total bilateral knee replacement Family History Mother CAD (coronary artery disease) CAD in her 80's AAA Diabetes Brother Colon cancer Daughter Blood disorder Von Willinberg's Disease and Thrombocytosis Father Cancer Lung Cancer Social History Smoking Status: Never smoker alcohol intake: current HPI LUMBAR SPINE Details: This documentation accurately reflects the service provided and the decisions made by me, VANNESSA Sommers 05/01/24 6299. Part of today???s visit was documented by Dawn LOZA, acting as scribe. NIA KIRAN is a 73 year old F here today NEW patient for low back pain that she has been having for 2 years. She did have an MRI at [facility] 2 years ago and she did bring the report today with her. She does have radiating pain down her left leg that stops at her ankle and she gets numbness in her left foot which is constant. She gets right sided pain down the back of her leg to her lateral right calf. Says that she can only stand for 10 minutes at a time before she needs to sit down due to the pain in her leg. This has been worsening over the last year. Says that standings will also cause her left foot to go numb. Walking as worsened and needs to lean on a shopping cart when grocery shopping however it has gotten to the point she she is not able to even go grocery shopping and has to order online. She denies previous surgeries on her back. She does seen Dr. Holman for pain management and she states that for her next procedure he wants to try an ablation. Her last injection with him was about 2 months ago which gave her relief for a day which she thinks is more from the anesthetic. She (more content not included)... Normal [facility] SCREENINGon 04-03-2024 [facility] SCREENING * * *Final Report* * * DATE OF EXAM: Apr 03 2024 1:11PM [facility] 0581 - [facility] SCREENING / PROCEDURE REASON: Encounter for screening mammogram for breast cancer * * * * Physician Interpretation * * * * RESULT: [place] [address] #[id number] - [facility] SCREENING HISTORY: 73 year-old patient seen for screening and is asymptomatic in both breasts. Patient states no personal history of breast cancer. Patient states no personal history of other cancers. COMPARISON STUDIES: The present examination has been compared to prior imaging studies dated 03/07/2019 (mammogram), 03/21/2020 (mammogram), 03/25/2021 (mammogram), 03/27/2022 (mammogram) and 04/01/2023 (mammogram). MAMMOGRAM TECHNIQUE: The study was acquired using full field digital technology and interpreted from soft copy. MAMMOGRAM FINDINGS: The breasts are almost entirely fatty. No suspicious masses, calcifications or other abnormalities are seen in either breast. There are no significant interval changes. IMPRESSION: There is no mammographic evidence of malignancy in either breast. Routine screening mammogram is recommended. Annual mammogram will be due in 1 year. BI-RADS Category 1: Negative RISK: Based on the Tyrer-Cuzick (TC) risk assessment model, this patient has a 2.0% lifetime risk of developing breast cancer, meaning they are at average risk for developing breast cancer. However, this is only an estimate based on available history provided on the patient's questionnaire. We encourage all patients to talk with their providers about these results, further recommendations for managing breast health, and appropriate supplemental screening options if the patient has dense breast tissue. Interpreting Radiologist: Brady Danielle M.D. Electronically signed on: 04/06/2024 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: JIGAR Transcribe Date/Time: Apr 03 2024 12:51P Dictated by: BRADY DANIELLE MD This examination was interpreted and the report reviewed and electronically signed by: BRADY DANIELLE MD on Apr 06 2024 12:44AM EST [id number] Normal [facility] ANES POSTPROC EVALon 024 ANES POSTPROC EVAL HNO ID: [id number] Author: JAMES CASTRO MD Service: Anesthesiology Author Type: Anesthesiologist Type: Anesthesia Postprocedure Evaluation Filed: 02/25/2024 12:16 Note Text: POST ANESTHESIA EVALUATION NOTE : 1950 Procedure Summary Date: 02/25/24 Room / Location: [facility] Endoscopy Anesthesia Start: 1042 Anesthesia Stop: 1131 Procedure: COLONOSCOPY SCREENING Diagnosis: Family history of malignant neoplasm of gastrointestinal tract Encounter for screening for malignant neoplasm of colon (Colon cancer screening in patient at increased risk: Colon cancer in brother) Scheduled Providers: Lj Paz DO; Dave Kim, FENCE MAKER.SHELTER CASE MANAGER Responsible Provider: James Castro MD Anesthesia Type: MAC ASA Status: 3 Anesthesia Type: MAC Last Vitals Vitals Value Taken Time BP 118/60 02/25/24 1154 Temp 36.2 ?C (97.2 ?F) 02/25/24 1154 HR SpO2 80 02/25/24 1134 Resp 18 02/25/24 1154 SpO2 99 % 02/25/24 1154 Post Anesthesia Patient Status Patient Evaluation: PACU. PACU/ICU Patient Condition: stable. Anticipated Disposition: phase 2 then home. Neurological Status: aware and responsive. Pulmonary Status: breathing comfortably on room air Airway Control: returned to baseline unsupported. Cardiovascular Status: stable. Pain Management: clinically adequate Postoperative Hydration: acceptable. Intraoperative Events: no significant anesthesia events Recommendation: continue current plan of care. Anesthesia Observations No Documentation SIGNATURE: James Castro MD PATIENT NAME: Nia Kiran DATE: February 25, 2024 TIME: 12:16 PM CSN: [id number] Normal [facility] ANES PRE-OPon 02-25-2024 ANES PRE-OP HNO ID: [id number] Author: JAMES CASTRO MD Service: Anesthesiology Author Type: Anesthesiologist Type: Anesthesia Preprocedure Evaluation Filed: 02/25/2024 09:38 Note Text: ANESTHESIOLOGY DAY OF SURGERY NOTE : 1950 Procedure Information Date/Time: 02/25/24 1030 Scheduled providers: Lj Paz DO; Dave Kim APRN.SHELTER CASE MANAGER Procedure: COLONOSCOPY SCREENING Location: [facility] Endoscopy Estimated body mass index is 50.66 kg/m? as calculated from the following: Height as of 02/09/24: 160 cm (5' 3). Weight as of 02/09/24: 129.7 kg (286 lb). Most recent hematocrit and potassium results: HCT 37.8 01/31/2024 K 4.9 02/02/2024 Relevant Problems ANESTHESIA (+) MARCELLE (obstructive sleep apnea) CARDIO (+) Essential hypertension with goal blood pressure less than 140/90 (+) LBBB (left bundle branch block) GI (+) GERD (gastroesophageal reflux disease) (+) Hiatal hernia -RENAL (+) Fatty liver PULMONARY (+) MARCELLE (obstructive sleep apnea) Other (+) Rheumatoid arthritis involving multiple sites with positive rheumatoid factor (HCC) I - PHYSICAL EVALUATION AIRWAY Patient intubated: No. Tracheostomy tube not present Mallampati: II. TM distance: >3 FB. Neck ROM: full ROM without neurological symptoms. Mouth opening: adequate. Short neck: no. Thick neck: no DENTAL Dental findings: poor dentition. Additional exam findings: yes. CARDIOVASCULAR Rhythm: regular PULMONARY Breath sounds clear to auscultation. II - ANESTHESIA PLAN ASA Score: 3 Anesthetic Plan: MAC NPO Status: adequate Beta Brent Monitoring Plan Monitoring plan: standard ASA. Post Procedure Analgesic Plan Postoperative analgesic plan: parenteral or oral opioids and multimodal analgesia. Informed Consent Anesthetic risks, benefits, alternatives, personnel and consent discussed: yes. Patient / Responsible Green Party agrees to proceed: yes Patient / Surrogate agrees to blood products: blood products not planned Significant changes in the patient condition since the History and Physical, not otherwise documented in primary service progress note: no. No vitals data found for the desired time range. Outpatient Medications as of 02/25/2024 Medication Sig - FLUoxetine (PROZAC) 40 mg capsule Take 1 capsule by mouth once daily. - lisinopril (ZESTRIL) 10 mg tablet Take 1 tablet by mouth once daily. - montelukast (SINGULAIR) 10 mg tablet Take 1 tablet by mouth daily at bedtime. - spironolactone (ALDACTONE) 25 mg tablet Take 1 tablet by mouth once daily. - zolpidem (AMBIEN) 10 mg Take 1 tablet by mouth at bedtime as needed for up to 180 days. For Insomnia. - omeprazole (PRILOSEC) 40 mg capsule Take 1 capsule by mouth once daily. - cyclobenzaprine (FLEXERIL) 10 mg tablet Take once a day as needed for pain. - WALKER ROLLATOR SEAT WITH 6 WHEELS - RED UAD - acetaminophen (TYLENOL ARTHRITIS PAIN) 650 mg CR tablet Take 650 mg by mouth every 8 hours as needed. - magnesium carb,citrate,oxide (MAGNESIUM COMPLEX ORAL) Take by mouth. Taking 500 mg magnesium - melatonin 10 mg cap Take by mouth as directed. - meloxicam (MOBIC) 15 mg tablet Take 15 mg by mouth once daily. Last dose 06/16 - estrogens conjugated (PREMARIN) 0.625 mg tablet Take 1 tablet by mouth two times a week. - hydrOXYchloroQUINE (PLAQUENIL) 200 mg tablet Take 1 tablet by mouth twice daily. Per rheumatology (Patient taking differently: Take 200 mg by mouth two times a day. Last dose 06/16 will check with rheumatology (Dr. Lopez) on 06/08 at appointment) - amoxicillin (POLYMOX, AMOXIL) 500 mg capsule Take 4 capsules by mouth as needed. Before dental procedures. - mirabegron (MYRBETRIQ) 50 mg Tb24 Take by mouth every morning. - LOW-DOSE ASPIRIN ORAL Take 81 mg by mouth once daily. Last dose 06/16 - GLUCOSAMINE HCL/CHONDR PACHECO A NA (OSTEO BI-FLEX ORAL) Take by mouth once daily. Last dose 06/10 - multivitamins(DAILY MULTIVITAMIN TAB) Take 1 tablet by mouth once daily. Last dose 06/10 - ascorbic acid(VITAMIN C 500 MG SR CAP) Take 1,000 mg by mouth once daily. Last dose 06/10 - COLACE 100 MG CAP Take by mouth every morning. Facility-Administered Medications as of 02/25/2024 Medication Dose Route Frequency - lidocaine (PF) 10 mg/mL (1 %) 1-2 mg injection (XYLOCAINE) 0.1-0.2 mL INTRADERMAL PRN - lactated ringers iv infusion 30 mL/hr INTRAVENOUS CONTINUOUS I have interviewed and examined the patient. I have reviewed the medical record and/or the pre-anesthesia evaluation, pertinent labs, and test results. This contains updated information obtained within 48 hours of Surgery/Procedure. SIGNATURE: James Castro MD PATIENT NAME: Nia Kiran DATE: February 25, 2024 TIME: 9:17 AM CSN: [id number] Normal [facility] Colonoscopyon 02-25-2024 Colonoscopy [facility] Gastrointestinal Endoscopy Patient Name: Nia Kiran Procedure Date: 02/25/2024 10:42 AM Date of : 1950 Admit Type: Outpatient Age: 73 Room: [facility] Gender: Female Note Status: Finalized Attending MD: Lj Paz , , [id number] Procedure: Colonoscopy Indications: Colon cancer screening in patient at increased risk: Colorectal cancer in brother Providers: Lj Paz Patient Profile: This is a 73 year old female. Refer to note in patient chart for documentation of history and physical. Last Colonoscopy: 2018. Referring Physician: Wendy Martinez (Referring MD) Medicines: Monitored Anesthesia Care Complications: No immediate complications. Requesting Provider: Procedure: Pre-Anesthesia Assessment: - Prior to the procedure, a History and Physical was performed, and patient medications and allergies were reviewed. The patient is competent. The risks and benefits of the procedure and the sedation options and risks were discussed with the patient. All questions were answered and informed consent was obtained. Patient identification and proposed procedure were verified by the physician, the nurse, the anesthesiologist and the forensic medical examiner in the pre-procedure area in the endoscopy suite. Mental Status Examination: alert and oriented. Airway Examination: normal oropharyngeal airway and neck mobility. Respiratory Examination: clear to auscultation. CV Examination: normal. Prophylactic Antibiotics: The patient does not require prophylactic antibiotics. Prior Anticoagulants: The patient has taken no anticoagulant or antiplatelet agents. ASA Grade Assessment: III - A patient with severe systemic disease. After reviewing the risks and benefits, the patient was deemed in satisfactory condition to undergo the procedure. The anesthesia plan was to use monitored anesthesia care (MAC). Immediately prior to administration of medications, the patient was re-assessed for adequacy to receive sedatives. The heart rate, respiratory rate, oxygen saturations, blood pressure, adequacy of pulmonary ventilation, and response to care were monitored throughout the procedure. The physical status of the patient was re-assessed after the procedure. After I obtained informed consent, the scope was passed under direct vision. Throughout the procedure, the patient's blood pressure, pulse, and oxygen saturations were monitored continuously. The was introduced through the anus and advanced to the cecum, identified by the ileocecal valve. The colonoscopy was technically difficult and complex due to inadequate bowel prep. Successful completion of the procedure was aided by lavage. The colonoscopy was technically difficult and complex due to significant looping. Successful completion of the procedure was aided by using manual pressure, withdrawing and reinserting the scope, straightening and shortening the scope to obtain bowel loop reduction and using scope torsion. The patient tolerated the procedure well. The quality of the bowel preparation was inadequate. The ileocecal valve and the rectum were photographed. Scope Withdrawal Time: 0 hours 15 minutes 49 seconds Moderate Sedation: See the other procedure note for documentation of moderate sedation with intraservice time. MAC anesthesia was administered by the anesthesia team. Total Procedure Duration: 0 hours 31 minutes 52 seconds Findings: The perianal and digital rectal examinations were normal. The sigmoid colon revealed moderately excessive looping. Advancing the scope required using manual pressure. Non-bleeding internal hemorrhoids were found during retroflexion. The hemorrhoids were medium-sized and Grade II (internal hemorrhoids that prolapse but reduce spontaneously). There was significant stool material within the colon which made it difficult to identify any small polyps or lesions. The exam was otherwise without abnormality. Impression: - Preparation of the colon was inadequate. - There was significant looping of the colon. - Non-bleeding internal hemorrhoids. - The examination was otherwise normal. - No specimens collected. Recommendation: - Patient has a contact number available for emergencies. The signs and symptoms of potential delayed complications were discussed with the patient. Return to normal activities tomorrow. Written discharge instructions were provided to the patient. - Discharge patient to home. - Resume previous diet. - Continue present medications. - Repeat colonoscopy in 1 year for surveillance. - Return to referring provider in 2 weeks. Procedure Code(s): --- Professional --- 00616, Colonoscopy, flexible; diagnostic, including collection of specimen(s) by brushing or washing, when performed (separate procedure) Diagnosis Code(s): --- Professional --- Z12.11, Encounter for scr (more content not included)... Normal [facility] Colonoscopy Study observatio non 02-25-2024 [facility] Gastrointestinal Endoscopy Patient Name: Nia Kiran Procedure Date: 02/25/2024 10:42 AM Date of : 1950 Admit Type: Outpatient Age: 73 Room: [facility] Gender: Female Note Status: Finalized Attending MD: Lj Paz , , [id number] Procedure: Colonoscopy Indications: Colon cancer screening in patient at increased risk: Colorectal cancer in brother Providers: Lj Paz Patient Profile: This is a 73 year old female. Refer to note in patient chart for documentation of history and physical. Last Colonoscopy: 2018. Referring Physician: Wendy Martinez (Referring MD) Medicines: Monitored Anesthesia Care Complications: No immediate complications. Requesting Provider: Procedure: Pre-Anesthesia Assessment: - Prior to the procedure, a History and Physical was performed, and patient medications and allergies were reviewed. The patient is competent. The risks and benefits of the procedure and the sedation options and risks were discussed with the patient. All questions were answered and informed consent was obtained. Patient identification and proposed procedure were verified by the physician, the nurse, the anesthesiologist and the forensic medical examiner in the pre-procedure area in the endoscopy suite. Mental Status Examination: alert and oriented. Airway Examination: normal oropharyngeal airway and neck mobility. Respiratory Examination: clear to auscultation. CV Examination: normal. Prophylactic Antibiotics: The patient does not require prophylactic antibiotics. Prior Anticoagulants: The patient has taken no anticoagulant or antiplatelet agents. ASA Grade Assessment: III - A patient with severe systemic disease. After reviewing the risks and benefits, the patient was deemed in satisfactory condition to undergo the procedure. The anesthesia plan was to use monitored anesthesia care (MAC). Immediately prior to administration of medications, the patient was re-assessed for adequacy to receive sedatives. The heart rate, respiratory rate, oxygen saturations, blood pressure, adequacy of pulmonary ventilation, and response to care were monitored throughout the procedure. The physical status of the patient was re-assessed after the procedure. After I obtained informed consent, the scope was passed under direct vision. Throughout the procedure, the patient's blood pressure, pulse, and oxygen saturations were monitored continuously. The was introduced through the anus and advanced to the cecum, identified by the ileocecal valve. The colonoscopy was technically difficult and complex due to inadequate bowel prep. Successful completion of the procedure was aided by lavage. The colonoscopy was technically difficult and complex due to significant looping. Successful completion of the procedure was aided by using manual pressure, withdrawing and reinserting the scope, straightening and shortening the scope to obtain bowel loop reduction and using scope torsion. The patient tolerated the procedure well. The quality of the bowel preparation was inadequate. The ileocecal valve and the rectum were photographed. Scope Withdrawal Time: 0 hours 15 minutes 49 seconds Moderate Sedation: See the other procedure note for documentation of moderate sedation with intraservice time. MAC anesthesia was administered by the anesthesia team. Total Procedure Duration: 0 hours 31 minutes 52 seconds Findings: The perianal and digital rectal examinations were normal. The sigmoid colon revealed moderately excessive looping. Advancing the scope required using manual pressure. Non-bleeding internal hemorrhoids were found during ret (more content not included)... PROVATION [facility] Radiology Study observation (narrative) [facility] CNOVon 02-09-2024 CNOV Office Visit (FAMPWS ) NIA KIRAN ([id number]) 1950 F Date Time Provider Department 02/09/24 1:00 PM BRAULIO URRUTIA FAMPWS During your visit today, we recorded the following information about you: Pulse Respiration Blood pressure Weight 76/minute 16minute 116/76 129.7 kg Height 1.6 m Braulio Urrutia MD 02/09/2024 2:05 PM Signed Nia Kiran is a 73 year old female here for a Medicare wellness visit. Medicare Health Risk Assessment General Health Good Exercise: Minutes/Day 10 min Exercise: Days/Week 0 days Alcohol: Daily Use Never Alcohol: Drinks/Day Patient does not drink Alcohol: 6 or more drinks Never Feel off balance No Concerns: Teeth/Dentures No Concerns: Sexual function No Troubled by feelings None of the above Frequency: Eating healthy diet Several days ADLs requiring help None of the above Safety precautions in home/vehicle Yes Smoke, vape, chews tobacco No Difficulty hearing No Difficulty seeing No Current Providers Specialists: I have reviewed specialist-related care of the patient in the medical record. Dr. Lopez: Sandra Suero Astor: OB Dr. Pollard: pain management. Medical/Family history review Reviewed and updated problem list, medical/surgical/famil y/social history, medications, and allergies. Opioid use review Opioid Medications (last 90 days) No data to display Anxiety/Depression screening PHQ-9 Score: 0 . CAROL-7 Score: 0 . Recommendation: no further intervention at this time Cognitive screening Score: 5 Cognitive screening reviewed and No further action needed (score 3-5). Functional Observation Was the patient's Timed Up AND Go test unsteady or >= 12 seconds? No Advance Care Planning Surrogate decision maker documented and/or advance directives scanned in chart Measurements BP 116/76 Pulse 76 Resp 16 Ht 160 cm (5' 3) Wt 129.7 kg (286 lb) BMI 50.66 kg/m? Vision Screening: Follows with optometry/ophthalmolog y Assessment/Plan Medicare annual wellness visit, subsequent (Z00.00) - Counseled on healthy diet and regular exercise - Fall avoidance information provided - Personalized prevention plan provided See below Chief Complaint Patient presents with: Medicare Wellness Exam HPI Nia Kiran is a 73 year old female who presents here today for Chronic Medical Conditions. and Medicare Annual Visit. Patient with HTN, MARCELLE, constipation, Insomnia, elevated glucose, RA, OA, and those as below. Patient sees MAIL ORDER BILLER last visit 04/[address] Pollard - pain management Patient has been doing well no new issues or concerns. Past medical history, appointments, medications, allergies reviewed. Previous Medical History PAST MEDICAL HISTORY Diagnosis Date Acute pain of right shoulder 08/21/2022 Seeing [facility] 07/2022 Advance directive discussed with patient 02/04/2022 Discussed 01/2022: up to date Allergic rhinitis 08/31/2013 Anxiety Chronic pain syndrome 05/06/202304/2023 seeing Pain management, Dr. Pollard Common wart 01/21/2009 Constipation COPD (chronic obstructive pulmonary disease) ([facility]) well controlled-managed by PCP Elevated fasting blood sugar 2016 Essential hypertension with goal blood pressure less than 140/90 06/27/2015 well controlled-managed by PCP Family history of malignant neoplasm of gastrointestinal tract Fatty liver Gastroesophageal reflux disease without esophagitis 06/04/2015 Hallux valgus (acquired) 04/12/2008 Hemorrhage of gastrointestinal tract, unspecified Hiatal hernia sliding History of knee replacement, total both Hyponatremia 01/31/2021 Related to Hctz Insomnia 06/04/2015 LBBB (left bundle branch block) 05/29/2022 Living will on file at physician's office 02/04/2022 DPA: Alessandra (daughter) Medicare annual wellness visit, initial 11/04/2017 Medicare Part B: 09/29/2017 last done: 11/04/2018 Medicare annual wellness visit, initial 11/04/2017 Medicare Part B: 09/29/2017 last done: 11/10/2019 Medicare annual wellness visit, subsequent 11/04/2017 Medicare Part B: 09/29/2017 last done: 02/04/2022 Muscle spasm 12/14/2017 Uses prn flexeril OA (osteoarthritis) 08/31/2013 Sees Ortho for Shoulder: Dr. Mahoney Obesity, Class III, BMI 40-49.9 (morbid obesity) ([facility]) 05/04/2018 OSTEOARTHRITIS LOCALIZED, PRIMARY( Lower Leg) 07/22/2005 Other age-related cataract 07/27/[address] Turcios Other complications due to other internal orthopedic device, implant, and graft 07/03/2008 Other skin changes 01/21/[address] Turcios for twice a year skin checks Overactive bladder 08/31/2013 Prolonged Q-T interval on ECG 06/04/2015 Per cardio felt to be prozac related. Rheumatoid arthritis involving multiple sites with positive rheumatoid factor ([facility]) 05/05/[address] Schmidt Severe obstructive sleep assembly hand (more content not included)... Normal [facility] HISTORY PHYSICALon HISTORY PHYSICAL HNO ID: [id number] Author: DUY PEDROZA PA-C Service: ? Author Type: Physician Animal Care Attendant Type: H&P Filed: 02/04/2024 13:40 Note Text: PREANESTHESIA CONSULT CLINIC TELEHEALTH VISIT Patient has been identified by name and date of : Yes This is a virtual visit using Graphiclyom Video Visit. It require patient-provider interaction for the medical decision making as documented below. Reason for contact: PACC visit Accompanied by: Self This is a virtual visit using Virtual Visit (Audio/Visual)I have discussed the nature of this visit with the patient which will occur via Distance Health (Phone, Virtual Visit) and she agrees to proceed with this interaction. It required patient-provider interaction for the medical decision making as documented below. I have communicated my name and active licensure. The patient's identity and physical location were verified at the time of this visit. Either the patient or their legal school admissions representative has been informed of the risks and benefits of and alternatives to treatment through a remote evaluation and consents to proceed with the evaluation remotely. Scheduled Surgery: COLONOSCOPY Subjective CHIEF COMPLAINT: Patient presents with: Pre-Op Visit HPI: Patient is a 73 year old female here for PACC. Patient has been recommended for screening colonoscopy; last colonoscopy 5 years ago. Denies abdominal pain, diarrhea, constipation, blood in stool. Family history of colon polyps: brother Family history of colon cancer: brother ACTIVE PROBLEM LIST OSTEOARTHRITIS LOCALIZED, PRIMARY( Lower Leg) Hallux valgus (acquired) Other complications due to other internal orthopedic device, implant, and graft Symptomatic Menopausal Or Female Climacteric States Anxiety History of Knee Replacement, Total Constipation Hiatal Hernia Fatty Liver Allergic Rhinitis Overactive Bladder Oa (Osteoarthritis) Gerd (Gastroesophageal Reflux Disease) Insomnia Prolonged Q-T Interval On Ecg Essential Hypertension With Goal Blood Pressure Less Than 140/90 Elevated Fasting Blood Sugar Marcelle (Obstructive Sleep Apnea) Muscle Spasm Family History of Malignant Neoplasm of Gastrointestinal Tract Obesity Rheumatoid Arthritis Involving Multiple Sites With Positive Rheumatoid Factor (Hcc) Other Age-Related Cataract Medication Management Other Skin Changes Hyponatremia Living Will On File At Physician's Office Advance Directive Discussed With Patient Arthritis of Left Shoulder Region Lbbb (Left Bundle Branch Block) Acute Pain of Right Shoulder Spinal Stenosis of Lumbar Region With Neurogenic Claudication Lumbar Radiculopathy Balance Disorder Chronic Pain Syndrome Screening for Colon Cancer PAST MEDICAL HISTORY Diagnosis Date Acute pain of right shoulder 08/21/2022 Seeing [facility] 07/2022 Advance directive discussed with patient 02/04/2022 Discussed 01/2022: up to date Allergic rhinitis 08/31/2013 Anxiety Chronic pain syndrome 05/06/202304/2023 seeing Pain management, Dr. Pollard Common wart 01/21/2009 Constipation COPD (chronic obstructive pulmonary disease) ([facility]) well controlled-managed by PCP Elevated fasting blood sugar 2016 Essential hypertension with goal blood pressure less than 140/90 06/27/2015 well controlled-managed by PCP Family history of malignant neoplasm of gastrointestinal tract Fatty liver Gastroesophageal reflux disease without esophagitis 06/04/2015 Hallux valgus (acquired) 04/12/2008 Hemorrhage of gastrointestinal tract, unspecified Hiatal hernia sliding History of knee replacement, total both Hyponatremia 01/31/2021 Related to Hctz Insomnia 06/04/2015 LBBB (left bundle branch block) 05/29/2022 Living will on file at physician's office 02/04/2022 DPA: Alessandra (daughter) Medicare annual wellness visit, initial 11/04/2017 Medicare Part B: 09/29/2017 last done: 11/04/2018 Medicare annual wellness visit, initial 11/04/2017 Medicare Part B: 09/29/2017 last done: 11/10/2019 Medicare annual wellness visit, subsequent 11/04/2017 Medicare Part B: 09/29/2017 last done: 02/04/2022 Muscle spasm 12/14/2017 Uses prn flexeril OA (osteoarthritis) 08/31/2013 Sees Ortho for Shoulder: Dr. Mahoney Obesity, Class III, BMI 40-49.9 (morbid obesity) (HCC) 05/04/2018 OSTEOARTHRITIS LOCALIZED, PRIMARY( Lower Leg) 07/22/2005 Other age-related cataract 07/27/[address] Turcios Other complications due to other internal orthopedic device, implant, and graft 07/03/2008 Other skin changes 01/21/[address] Turcios for twice a year skin checks Overactive bladder 08/31/2013 Prolonged Q-T interval on ECG 06/04/2015 Per cardio felt to be prozac related. Rheumatoid arthritis involving multiple sites with positive rheumatoid factor (HCC) 05/05/[address] Schmidt Severe obstructive sleep apnea 05/24/2017 compliant with CPAP Spinal stenosis of lumbar regio (more content not included)... Normal [facility] Basic metabolic 2000 panelon 02-02-2024 Anion gap [Moles/Vol] 11 mmol/L Normal 8-15 [facility] Comment on above: Order Comment: Speci men Type: BLOOD SPECIMEN Ordering Facility: [facility] Address: [address] [place] [address] Performed By: #### 2 4321-2 #### [facility] CLIA [id number] [address] [place] [address] [place] Calcium [Mass/Vol] 9.4 mg/dL Normal 8.5-10.2 [facility] Comment on above: Order Comment: Speci men Type: BLOOD SPECIMEN Ordering Facility: [facility] Address: [address] [place] [address] Performed By: #### 2 4321-2 #### [facility] CLIA [id number] [address] [place] [address] [place] Chloride [Moles/Vol] 98 mmol/L Normal 98-107 [facility] Comment on above: Order Comment: Speci men Type: BLOOD SPECIMEN Ordering Facility: [facility] Address: [address] [place] [address] Performed By: #### 2 4321-2 #### [facility] CLIA [id number] [address] [place] [address] [place] CO2 [Moles/Vol] 23 mmol/L Normal 22-30 [facility] Comment on above: Order Comment: Speci men Type: BLOOD SPECIMEN Ordering Facility: [facility] Address: [facility] [place] [address] Performed By: #### 2 4321-2 #### [facility] CLIA [id number] [address] [place], [place] [id number] [place] Creatinine [Mass/Vol] 0.92 mg/dL Normal 0.58-0.96 [facility] Comment on above: Order Comment: Kendell black Type: BLOOD SPECIMEN Ordering Facility: [facility] Address: [address] [place] [address] Performed By: #### 2 4321-2 #### [id number] [address] [place] [address] [place] Creatinine and Glomerular filtration rate.predicted panel (S/P/Bld) 67 mL/min/1.73m??? Normal >=60 [facility] Comment on above: Order Comment: Kendell black Type: BLOOD SPECIMEN Ordering Facility: [facility] Address: [address] [place] [address] Result Comment: Dora mated Glomerular Filtration Rate (eGFR) is calculated using the 2020 CKD-EPI creatinine equation. This equation utilizes serum creatinine, sex, and age as parameters. The creatinine assay has traceable calibration to isotope dilution-mass spectrometry. Refer to KDIGO guidelines for clinical interpretation. In patients with unstable renal function, e.g. those with acute kidney injury, the eGFR may not accurately reflect actual GFR. Performed By: #### 2 4321-2 #### [facility] [id number] [address] [place] [address] [place] Glucose [Mass/Vol] 108 mg/dL High 74-99 [facility] Comment on above: Order Comment: Kendell black Type: BLOOD SPECIMEN Ordering Facility: [facility] Address: [address] [place] [address] Result Comment: The [place] Diabetes Association (ADA) provides guidance for cutoff values for fasting glucose and random glucose. The ADA defines fasting as no caloric intake for at least 8 hours. Fasting plasma glucose results between 100 to 125 mg/dL indicate increased risk for diabetes (prediabetes). Fasting plasma glucose results greater than or equal to 126 mg/dL meet the criteria for diagnosis of diabetes. In the absence of unequivocal hyperglycemia, results should be confirmed by repeat testing. In a patient with classic symptoms of hyperglycemia or hyperglycemic crisis, random plasma glucose results greater than or equal to 200 mg/dL meet the criteria for diagnosis of diabetes. Reference: Standards of Medical Care in Diabetes 2016, [place] [employer] Association. Diabetes Care. 2016.39(Suppl 1). Performed By: #### 2 4321-2 #### [facility] CLIA [id number] [address] [place] [address] [place] Potassium [Moles/Vol] 4.9 mmol/L Normal 3.7-5.1 [facility] Comment on above: Order Comment: Kendell black Type: BLOOD SPECIMEN Ordering Facility: [facility] Address: [address] [place] [address] Performed By: #### 2 4321-2 #### [facility] [id number] [address] [place] [address] [place] Sodium [Moles/Vol] 132 mmol/L Low 136-144 [facility] Comment on above: Order Comment: Kendell black Type: BLOOD SPECIMEN Ordering Facility: [facility] Address: [address] [place] [address] Performed By: #### 2 4321-2 #### [facility] [id number] [address] [place] [address] [place] Urea nitrogen [Mass/Vol] 24 mg/dL High 7-21 [facility] Comment on above: Order Comment: Kendell black Type: BLOOD SPECIMEN Ordering Facility: [facility] Address: [address] [place] [address] Performed By: #### 2 4321-2 #### [facility] [id number] [address] [place] [address] [place] Toney 02-01-2024 TEETEEN Telephone (FAMPWS) NIA KIRAN ([id number]) 1950 F Date Time Provider Department 02/01/24 BRAULIO URRUTIA During your visit today, we recorded the following information about you: Braulio Urrutia MD 02/01/2024 9:28 PM Addendum Let patient know her sodium was slightly low and her potassium was slightly high. I placed an order for a BMP to be done at the [facility]. Also let her know her UA shows she may have a UTI. If having symptoms will need treated? Sheridan Escobedo MA 02/02/2024 8:51 AM Signed Patient notified and voiced understanding. Patient will come get labs done today/tomorrow. No signs or symptoms of UTI. ANETTE Grayson Jeffrey A, MD 02/02/2024 8:57 AM Signed Noted. Allergies As of Date: 02/01/2024 Noted Allergy Reaction MORPHINE 11/15/2018 2 - Rash Comments: And delusions DEMEROL (MEPERIDINE (PF)) 06/19/2008 9 - Itching DILAUDID (HYDROMORPHONE (BULK)) 07/01/2009 9 - Itching PERCOCET (OXYCODONE-ACETAMINOPH EN)07/22/2005 16 - Unknown POISON MICHELLE 12/26/2012 7 - Swelling 9 - Itching 14 - Other: See Comments Comments: nausea VICODIN (HYDROCODONE-ACETAMINO PHE*02/03/2005 16 - Unknown Date Reviewed: 11/15/2023 Reviewed by: Wendy Martinez APRN.MARINE EQUIPMENT PRESERVATION INSPECTOR - Fully Assessed Reason for Visit: Results [95] Primary Visit Diagnosis:Hyponatremia [E87.1] Other Visit Diagnosis:Hyperkalemia [E87.5] Order(s):BASIC METABOLIC PANEL [SQBMP] Order #: [id number] FUTURE Prescriptions as of 02/02/2024 - montelukast (SINGULAIR) 10 mg tablet Take 1 tablet by mouth daily at bedtime. - omeprazole (PRILOSEC) 40 mg capsule Take 1 capsule by mouth once daily. - spironolactone (ALDACTONE) 25 mg tablet Take 1 tablet by mouth once daily. - zolpidem (AMBIEN) 10 mg Take 1 tablet by mouth at bedtime as needed for up to 180 days. For Insomnia. - cyclobenzaprine (FLEXERIL) 10 mg tablet Take once a day as needed for pain. - FLUoxetine (PROZAC) 40 mg capsule Take 1 capsule by mouth once daily. - lisinopril (ZESTRIL) 10 mg tablet Take 1 tablet by mouth once daily. - WALKER ROLLATOR SEAT WITH 6 WHEELS - RED UAD - acetaminophen (TYLENOL ARTHRITIS PAIN) 650 mg CR tablet Take 650 mg by mouth every 8 hours as needed. - magnesium carb,citrate,oxide (MAGNESIUM COMPLEX ORAL) Take by mouth. Taking 500 mg magnesium - melatonin 10 mg cap Take by mouth as directed. - meloxicam (MOBIC) 15 mg tablet Take 15 mg by mouth once daily. Last dose 06/16 - estrogens conjugated (PREMARIN) 0.625 mg tablet Take 1 tablet by mouth two times a week. - hydrOXYchloroQUINE (PLAQUENIL) 200 mg tablet Take 1 tablet by mouth twice daily. Per rheumatology - amoxicillin (POLYMOX, AMOXIL) 500 mg capsule Take 4 capsules by mouth as needed. Before dental procedures. - mirabegron (MYRBETRIQ) 50 mg Tb24 Take by mouth every morning. - LOW-DOSE ASPIRIN ORAL Take 81 mg by mouth once daily. Last dose 06/16 - GLUCOSAMINE HCL/CHONDR PACHECO A NA (OSTEO BI-FLEX ORAL) Take by mouth once daily. Last dose 06/10 - multivitamins(DAILY MULTIVITAMIN TAB) Take 1 tablet by mouth once daily. Last dose 06/10 - ascorbic acid(VITAMIN C 500 MG SR CAP) Take 1,000 mg by mouth once daily. Last dose 06/10 - COLACE 100 MG CAP Take by mouth every morning. Problem List As Of Date 02/01/2024 Noted Resolved OSTEOARTHRITIS LOCALIZED, PRIMARY( Lower Leg) [*07/22/2005 Hallux valgus (acquired) [M20.10] 04/12/2008 Other complications due to other internal ortho*07/03/2008 Symptomatic menopausal or female climacteric st*08/03/2011 Anxiety [F41.9] History of knee replacement, total [Z96.659] Constipation [K59.00] Routine gynecological examination [Z01.419] 04/01/2023 Hiatal hernia [K44.9] Fatty liver [K76.0] Allergic rhinitis [J30.9] 08/31/2013 Overactive bladder [N32.81] 08/31/2013 OA (osteoarthritis) [M19.90] 08/31/2013 Gastroesophageal reflux disease without esophag*06/04/2015 Insomnia [G47.00] 06/04/2015 Elevated blood pressure reading without diagnos*06/04/2015 10/11/2015 Prolonged Q-T interval on ECG [R94.31] 06/04/2015 Essential hypertension with goal blood pressure*06/27/2015 Current use of proton pump inhibitor [Z79.899] 04/21/2016 07/25/2021 Elevated fasting blood sugar [R73.01] 2016 Severe obstructive sleep apnea [G47.33] 05/24/2017 Medicare annual wellness visit, subsequent [Z00*11/04/2017 04/01/2023 Muscle spasm [M62.838] 12/14/2017 Family history of malignant neoplasm of gastroi* Morbid obesity (HCC) [E66.01] 05/04/2018 Rheumatoid arthritis involving multiple sites w*05/05/2018 Other age-related cataract [H25.89] 07/27/2018 Medication management [Z79.899] 06/12/2020 Other skin changes [R23.8] 01/21/2021 Hyponatremia [E87.1] 01/31/2021 Living will on file at physician's office [Z78.*02/04/2022 Advance directive discussed with patient [Z71.8*02/04/2022 Arthritis of left shoulder region [M19.01 (more content not included)... Normal [facility] Urinalysis complete panel (U )on 02-01-2024 BACTERIA UL >9821 High Negative [facility] Comment on above: Order Comment: Speci men Type: URINE SPECIMENOrdering Facility: [facility] Address: [address] [place] [address] Performed By: #### 2 4356-8 ####[facility] LABCLIA [id number] [place] [address] [place] Bilirubin Ql (U) Negative Normal Negative [facility] Comment on above: Order Comment: Speci men Type: URINE SPECIMENOrdering Facility: [facility] Address: [address] [place] [address] Performed By: #### 2 4356-8 ####[facility] LABCLIA [id number] [place] [address] [place] Clarity (Unsp spec) Clear Normal Clear [facility] Comment on above: Order Comment: Speci men Type: URINE SPECIMENOrdering Facility: [facility] Address: [address] [place] [address] Performed By: #### 2 4356-8 ####[facility] LABCLIA [id number] [place] [address] [place] Color (U) Yellow Normal Yellow [facility] Comment on above: Order Comment: Speci men Type: URINE SPECIMENOrdering Facility: [facility] Address: [address] [place] [address] Performed By: #### 2 4356-8 ####[facility] LABCLIA [id number] [place] [address] [place] Epithelial cells LM.HPF (Urine sed) [#/Area] None Seen Normal [facility] Comment on above: Order Comment: Speci men Type: URINE SPECIMENOrdering Facility: [facility] Address: [address] [place] [address] Performed By: #### 2 4356-8 ####[facility] LABCLIA [id number] [place] [address] [place] Glucose Test strip (U) [Mass/Vol] Negative Normal Negative [facility] Comment on above: Order Comment: Speci men Type: URINE SPECIMENOrdering Facility: [facility] Address: [address] [place] [address] Performed By: #### 2 4356-8 ####[facility] LABCLIA [id number] [place] [address] [place] Hemoglobin Ql (U) Negative Normal Negative [facility] Comment on above: Order Comment: Speci men Type: URINE SPECIMENOrdering Facility: [facility] Address: [address] [place] [address] Performed By: #### 2 4356-8 ####[facility] LABCLIA [id number] [place] [address] [place] Hyaline casts (Urine sed) [#/Area] 0 /[LPF] Normal 0 /LPF [facility] Comment on above: Order Comment: Speci men Type: URINE SPECIMENOrdering Facility: [facility] Address: [address] [place] [address] Performed By: #### 2 4356-8 ####[facility] LABCLIA [id number] [place] [address] [place] Ketones Ql (U) Negative Normal Negative [facility] Comment on above: Order Comment: Speci men Type: URINE SPECIMENOrdering Facility: [facility] Address: [address] [place] [address] Performed By: #### 2 4356-8 ####[facility] LABCLIA [id number] [place] [address] [place] Leukocyte esterase Test strip Ql (U) 2+ Abnormal Negative [facility] Comment on above: Order Comment: Speci men Type: URINE SPECIMENOrdering Facility: [facility] Address: [address] [place] [address] Performed By: #### 2 4356-8 ####[facility] LABCLIA [id number] [place] [address] [place] Nitrite Ql (U) Positive Abnormal Negative [facility] Comment on above: Order Comment: Speci men Type: URINE SPECIMENOrdering Facility: [facility] Address: [address] [place] [address] Performed By: #### 2 4356-8 ####[facility] LABCLIA [id number] [place] [address] [place] pH (U) 6.0 [pH] Normal <8.5 [facility] Comment on above: Order Comment: Speci men Type: URINE SPECIMENOrdering Facility: [facility] Address: [address] [place] [address] Performed By: #### 2 4356-8 ####[facility] LABIA [id number] [place] [address] [place] Protein (U) [Mass/Vol] Negative Normal Negative [facility] Comment on above: Order Comment: Speci men Type: URINE SPECIMENOrdering Facility: [facility] Address: [address] [place] [address] Performed By: #### 2 4356-8 ####[facility] LABIA [id number] [place] [address] [place] RBC LM.HPF (Urine sed) [#/Area] 0-2 /HPF Normal 0-2 /HPF [facility] Comment on above: Order Comment: Speci men Type: URINE SPECIMENOrdering Facility: [facility] Address: [address] [place] [address] Performed By: #### 2 4356-8 ####[facility] LABIA [id number] [place] [address] [place] Specific gravity (U) [Rel density] 1.014 Normal 1.005-1.030 [facility] Comment on above: Order Comment: Speci men Type: URINE SPECIMENOrdering Facility: [facility] Address: [address] [place] [address] Performed By: #### 2 4356-8 ####[facility] LABIA [id number] [place] [address] [place] Urobilinogen Ql (U) 0.2 EU/dL Normal 0.2-1.0 EU/dL Cl [facility] Comment on above: Order Comment: Speci men Type: URINE SPECIMENOrdering Facility: [facility] Address: [address] [place] [address] Performed By: #### 2 4356-8 ####[facility] LABCLIA [id number] [place] [address] [place] WBC LM.HPF (Urine sed) [#/Area] /[HPF] Abnormal 0-5 /HPF [facility] Comment on above: Order Comment: Speci men Type: URINE SPECIMENOrdering Facility: [facility] Address: [address] [place] [address] Performed By: #### 2 4356-8 ####[facility] LABIA [id number] [place] [address] [place] CBC W Auto Differential pane l (Bld)on 01-31-2024 Basophils (Bld) [#/Vol] 0.05 10*3/uL Normal <0.11 [facility] Comment on above: Order Comment: Speci men Type: BLOOD SPECIMEN Ordering Facility: [facility] Address: [address] [place] [address] Performed By: #### 2 4321-2 #### [facility] [id number] [address] [place] [address] [place] Basophils/100 WBC (Bld) 1.2 % Normal [facility] Comment on above: Order Comment: Speci men Type: BLOOD SPECIMEN Ordering Facility: [facility] Address: [address] [place] [address] Performed By: #### 2 4321-2 #### [facility] [id number] [address] [place] [address] [place] Differential cell count method Nom (Bld) Auto Normal [facility] Comment on above: Order Comment: Speci men Type: BLOOD SPECIMEN Ordering Facility: [facility] Address: [address] [place] [address] Performed By: #### 2 4321-2 #### [facility] CLIA [id number] [address] [place] [address] [place] Eosinophils (Bld) [#/Vol] 0.11 10*3/uL Normal <0.46 [facility] Comment on above: Order Comment: Speci men Type: BLOOD SPECIMEN Ordering Facility: [facility] Address: [address] [place] [address] Performed By: #### 2 4321-2 #### [facility] CLIA [id number] [address] [place] [address] [place] Eosinophils/100 WBC (Bld) 2.5 % Normal [facility] Comment on above: Order Comment: Speci men Type: BLOOD SPECIMEN Ordering Facility: [facility] Address: [address] [place] [address] Performed By: #### 2 4321-2 #### [facility] CLIA [id number] [address] [place] [address] [place] Erythrocyte distribution width (RBC) [Ratio] 11.9 % Normal 11.5-15.0 [facility] Comment on above: Order Comment: Speci men Type: BLOOD SPECIMEN Ordering Facility: [facility] Address: [address] [place] [address] Performed By: #### 2 4321-2 #### [facility] CLIA [id number] [address] [place] [address] [place] Hematocrit (Bld) [Volume fraction] 37.8 % Normal 36.0-46.0 [facility] Comment on above: Order Comment: Speci men Type: BLOOD SPECIMEN Ordering Facility: [facility] Address: [address] [place] [address] Performed By: #### 2 4321-2 #### [facility] CLIA [id number] [address] [place] [address] [place] Hemoglobin (Bld) [Mass/Vol] 12.4 g/dL Normal 11.5-15.5 [facility] Comment on above: Order Comment: Speci men Type: BLOOD SPECIMEN Ordering Facility: [facility] Address: [address] [place] [address] Performed By: #### 2 4321-2 #### [facility] CLIA [id number] [address] [place] [address] [place] Immature granulocytes (Bld) [#/Vol] 10*3/uL Normal <0.10 [facility] Comment on above: Order Comment: Speci men Type: BLOOD SPECIMEN Ordering Facility: [facility] Address: [address] [place] [address] Performed By: #### 2 4321-2 #### [facility] CLIA [id number] [address] [place] [address] [place] Immature granulocytes/100 WBC (Bld) 0.2 % Normal [facility] Comment on above: Order Comment: Speci men Type: BLOOD SPECIMEN Ordering Facility: [facility] Address: [address] [place] [address] Performed By: #### 2 4321-2 #### [facility] CLIA [id number] [address] [place] [address] [place] Lymphocytes (Bld) [#/Vol] 1.06 10*3/uL Normal 1.00-4.00 [facility] Comment on above: Order Comment: Speci men Type: BLOOD SPECIMEN Ordering Facility: [facility] Address: [address] [place] [address] Performed By: #### 2 4321-2 #### [facility] CLIA [id number] [address] [place] [address] [place] Lymphocytes/100 WBC (Bld) 24.5 % Normal [facility] Comment on above: Order Comment: Speci men Type: BLOOD SPECIMEN Ordering Facility: [facility] Address: [address] [place] [address] Performed By: #### 2 4321-2 #### [facility] CLIA [id number] [address] [place] [address] MCH (RBC) [Entitic mass] 34.3 pg High 26.0-34.0 [facility] Comment on above: Order Comment: Speci men Type: BLOOD SPECIMEN Ordering Facility: [facility] Address: [address] [place] [address] Performed By: #### 2 4321-2 #### [facility] CLIA [id number] [address] [place] [address] [place] MCHC (RBC) [Mass/Vol] 32.8 g/dL Normal 30.5-36.0 [facility] Comment on above: Order Comment: Speci men Type: BLOOD SPECIMEN Ordering Facility: [facility] Address: [address] [place] [address] Performed By: #### 2 4321-2 #### [facility] CLIA [id number] [address] [place] [address] [place] MCV (RBC) [Entitic vol] 104.4 fL High 80.0-100.0 [facility] Comment on above: Order Comment: Speci men Type: BLOOD SPECIMEN Ordering Facility: [facility] Address: [address] [place] [address] Performed By: #### 2 4321-2 #### [facility] CLIA [id number] [address] [place] [address] [place] Monocytes (Bld) [#/Vol] 0.35 10*3/uL Normal <0.87 [facility] Comment on above: Order Comment: Speci men Type: BLOOD SPECIMEN Ordering Facility: [facility] Address: [address] [place] [address] Performed By: #### 2 4321-2 #### [facility] CLIA [id number] [address] [place] [address] [place] Monocytes/100 WBC (Bld) 8.1 % Normal [facility] Comment on above: Order Comment: Speci men Type: BLOOD SPECIMEN Ordering Facility: [facility] Address: [address] [place] [address] Performed By: #### 2 4321-2 #### [facility] CLIA [id number] [address] [place] [address] [place] Neutrophils (Bld) [#/Vol] 2.75 10*3/uL Normal 1.45-7.50 [facility] Comment on above: Order Comment: Speci men Type: BLOOD SPECIMEN Ordering Facility: [facility] Address: [address] [place] [address] Performed By: #### 2 4321-2 #### [facility] CLIA [id number] [address] [place] [address] [place] Neutrophils/100 WBC (Bld) 63.5 % Normal [facility] Comment on above: Order Comment: Speci men Type: BLOOD SPECIMEN Ordering Facility: [facility] Address: [address] [place] [address] Performed By: #### 2 4321-2 #### [facility] CLIA [id number] [address] [place] [address] [place] Nucleated RBC (Bld) [#/Vol] 10*3/uL Normal <0.01 [facility] Comment on above: Order Comment: Speci men Type: BLOOD SPECIMEN Ordering Facility: [facility] Address: [address] [place] [address] Performed By: #### 2 4321-2 #### [facility] CLIA [id number] [address] [place] [address] [place] Nucleated RBC/100 WBC (Bld) [Ratio] 0.0 /100 WBC Normal [facility] Comment on above: Order Comment: Speci men Type: BLOOD SPECIMEN Ordering Facility: [facility] Address: [address] [place] [address] Performed By: #### 2 4321-2 #### [facility] CLIA [id number] [address] [place] [address] [place] Platelet mean volume (Bld) [Entitic vol] 9.4 fL Normal 9.0-12.7 [facility] Comment on above: Order Comment: Speci men Type: BLOOD SPECIMEN Ordering Facility: [facility] Address: [address] [place] [address] Performed By: #### 2 4321-2 #### [facility] CLIA [id number] [address] [place] [address] [place] Platelets (Bld) [#/Vol] 310 10*3/uL Normal 150-400 [facility] Comment on above: Order Comment: Speci men Type: BLOOD SPECIMEN Ordering Facility: [facility] Address: [address] [place] [address] Performed By: #### 2 4321-2 #### [facility] CLIA [id number] [address] [place] [address] [place] RBC (Bld) [#/Vol] 3.62 10*6/uL Low 3.90-5.20 [facility] Comment on above: Order Comment: Speci men Type: BLOOD SPECIMEN Ordering Facility: [facility] Address: [address] [place] [address] Performed By: #### 2 4321-2 #### [facility] CLIA [id number] [address] [place] [address] [place] WBC (Bld) [#/Vol] 4.33 10*3/uL Normal 3.70-11.00 [facility] Comment on above: Order Comment: Speci men Type: BLOOD SPECIMEN Ordering Facility: [facility] Address: [address] [place] [address] Performed By: #### 2 4321-2 #### [facility] CLIA [id number] [address] [place] [address] [place] Comprehensive metabolic 2000 panelon 01-31-2024 Albumin [Mass/Vol] 3.9 g/dL Normal 3.9-4.9 [facility] Comment on above: Order Comment: Speci men Type: BLOOD SPECIMEN Ordering Facility: [facility] Address: [address] [address] Performed By: #### 2 4321-2 #### [facility] CLIA [id number] [address] [place] [address] [place] ALP [Catalytic activity/Vol] 68 U/L Normal 34-123 [facility] Comment on above: Order Comment: Speci men Type: BLOOD SPECIMEN Ordering Facility: [facility] Address: [address] [place] [address] Performed By: #### 2 4321-2 #### [facility] CLIA [id number] [address] [place] [address] [place] ALT [Catalytic activity/Vol] 14 U/L Normal 7-38 [facility] Comment on above: Order Comment: Speci men Type: BLOOD SPECIMEN Ordering Facility: [facility] Address: [address] [place] [address] Performed By: #### 2 4321-2 #### [facility] CLIA [id number] [address] [place] [address] [place] Anion gap [Moles/Vol] 10 mmol/L Normal 8-15 [facility] Comment on above: Order Comment: Speci men Type: BLOOD SPECIMEN Ordering Facility: [facility] Address: [address] [place] [address] Performed By: #### 2 4321-2 #### [facility] CLIA [id number] [address] [place] [address] [place] AST [Catalytic activity/Vol] 17 U/L Normal 13-35 [facility] Comment on above: Order Comment: Speci men Type: BLOOD SPECIMEN Ordering Facility: [facility] Address: [address] [place] [address] Performed By: #### 2 4321-2 #### [facility] CLIA [id number] [address] [place] [address] [place] Bilirubin [Mass/Vol] 0.2 mg/dL Normal 0.2-1.3 [facility] Comment on above: Order Comment: Speci men Type: BLOOD SPECIMEN Ordering Facility: [facility] Address: [address] [place] [address] Performed By: #### 2 4321-2 #### [facility] [id number] [address] [place] [address] [place] Calcium [Mass/Vol] 9.0 mg/dL Normal 8.5-10.2 [facility] Comment on above: Order Comment: Speci men Type: BLOOD SPECIMEN Ordering Facility: [facility] Address: [address] [place] [address] Performed By: #### 2 4321-2 #### [facility] CLIA [id number] [address] [place] [address] [place] Chloride [Moles/Vol] 97 mmol/L Low 98-107 [facility] Comment on above: Order Comment: Speci men Type: BLOOD SPECIMEN Ordering Facility: [facility] Address: [address] [place] [address] Performed By: #### 2 4321-2 #### [facility] [id number] [address] [place] [address] [place] CO2 [Moles/Vol] 25 mmol/L Normal 22-30 [facility] Comment on above: Order Comment: Speci men Type: BLOOD SPECIMEN Ordering Facility: [facility] Address: [address] [place] [place] [id number] Performed By: #### 2 4321-2 #### [facility] CLIA [id number] [address] [place] [address] [place] Creatinine [Mass/Vol] 1.04 mg/dL High 0.58-0.96 [facility] Comment on above: Order Comment: Kendell black Type: BLOOD SPECIMEN Ordering Facility: [facility] Address: [address] [place] [address] Performed By: #### 2 4321-2 #### [facility] CLIA [id number] [address] [place] [address] [place] Creatinine and Glomerular filtration rate.predicted panel (S/P/Bld) 58 mL/min/1.73m??? Low >=60 [facility] Comment on above: Order Comment: Kendell black Type: BLOOD SPECIMEN Ordering Facility: [facility] Address: [address] [place] [address] Result Comment: Dora mated Glomerular Filtration Rate (eGFR) is calculated using the 2020 CKD-EPI creatinine equation. This equation utilizes serum creatinine, sex, and age as parameters. The creatinine assay has traceable calibration to isotope dilution-mass spectrometry. Refer to KDIGO guidelines for clinical interpretation. In patients with unstable renal function, e.g. those with acute kidney injury, the eGFR may not accurately reflect actual GFR. Performed By: #### 2 4321-2 #### [facility] [id number] [address] [place] [address] [place] Glucose [Mass/Vol] 126 mg/dL High 74-99 [facility] Comment on above: Order Comment: Kendell men Type: BLOOD SPECIMEN Ordering Facility: [facility] Address: [address] [place] [address] Result Comment: The [place] Diabetes Association (ADA) provides guidance for cutoff values for fasting glucose and random glucose. The ADA defines fasting as no caloric intake for at least 8 hours. Fasting plasma glucose results between 100 to 125 mg/dL indicate increased risk for diabetes (prediabetes). Fasting plasma glucose results greater than or equal to 126 mg/dL meet the criteria for diagnosis of diabetes. In the absence of unequivocal hyperglycemia, results should be confirmed by repeat testing. In a patient with classic symptoms of hyperglycemia or hyperglycemic crisis, random plasma glucose results greater than or equal to 200 mg/dL meet the criteria for diagnosis of diabetes. Reference: Standards of Medical Care in Diabetes 2016, [place] Diabetes Association. Diabetes Care. 2016.39(Suppl 1). Performed By: #### 2 4321-2 #### [facility] CLIA [id number] [address] [place] [address] [place] Potassium [Moles/Vol] 5.3 mmol/L High 3.7-5.1 [facility] Comment on above: Order Comment: Kendell black Type: BLOOD SPECIMEN Ordering Facility: [facility] Address: [address] [place] [address] Performed By: #### 2 4321-2 #### [facility] [id number] [address] [place] [address] [place] Protein [Mass/Vol] 6.9 g/dL Normal 6.3-8.0 [facility] Comment on above: Order Comment: Kendell black Type: BLOOD SPECIMEN Ordering Facility: [facility] Address: [address] [place], [place] [address] Performed By: #### 2 4321-2 #### [facility] [id number] [address] [place] [address] [place] Sodium [Moles/Vol] 132 mmol/L Low 136-144 [facility] Comment on above: Order Comment: Kendell black Type: BLOOD SPECIMEN Ordering Facility: [facility] Address: [address] [place] [address] Performed By: #### 2 4321-2 #### [facility] [id number] [address] [place] [address] [place] Urea nitrogen [Mass/Vol] 19 mg/dL Normal 7-21 [facility] Comment on above: Order Comment: Kendell black Type: BLOOD SPECIMEN Ordering Facility: [facility] Address: [address] [place] [address] Performed By: #### 2 4321-2 #### [facility] CLIA [id number] [address] [place] [address] [place] HbA1c (Bld)on 01-31-2024 Average glucose Estimated from glycated hemoglobin (Bld) [Mass/Vol] 120 mg/dL Normal [facility] Comment on above: Order Comment: Kendell blcak Type: BLOOD SPECIMENOrdering Facility: [facility] Address: [address] [place] [address] Result Comment: eAG: (Estimated average glucose) is a calculated value from HgbA1c and is school admissions representative of the average blood glucose level in the last 2-3 month period. Performed By: #### 5 5454-3 ####[facility]CLIA [id number] [place] [address] [place] HbA1c (Bld) [Mass fraction] 5.8 % High 4.3-5.6 [facility] Comment on above: Order Comment: Kendell black Type: BLOOD SPECIMENOrdering Facility: [facility] Address: [address] [place] [address] Result Comment: [place] Diabetes Association guidelines indicate that patients with HgbA1c in the range 5.7-6.4% are at increased risk for development of diabetes, and intervention by lifestyle modification may be beneficial. HgbA1c greater or equal to 6.5% is considered diagnostic of diabetes. Performed By: #### 5 5454-3 ####[facility] LAB[facility]IA [id number] [place] [address] [place] LIPID PANEL, NONFASTINGon Cholesterol [Mass/Vol] 188 mg/dL Normal <200 [facility] Comment on above: Order Comment: Kendell black Type: BLOOD SPECIMEN Ordering Facility: [facility] Address: [address], [place] [address] Result Comment: <200 mg/dL, Desirable 200-239 mg/dL, Borderline high >239 mg/dL, High Performed By: #### 2 4321-2 #### [facility] CLIA [id number] [address] [place] [address] [place] HDL CHOLESTEROL, NF 68 mg/dL Normal >39 [facility] Comment on above: Order Comment: Kendell black Type: BLOOD SPECIMEN Ordering Facility: [facility] Address: [address] [place] [address] Result Comment: 40-5 9 mg/dL, Acceptable >59 mg/dL, High: Negative risk factor for coronary heart disease <40 mg/dL, Low: Positive risk factor for coronary heart disease Performed By: #### 2 4321-2 #### [facility] [id number] [address] [place] [address] [place] LDL CHOLESTEROL, NF 102 mg/dL High <100 [facility] Comment on above: Order Comment: Kendell black Type: BLOOD SPECIMEN Ordering Facility: [facility] Address: [address] [place] [address] Result Comment: <100 mg/dL, Optimal 100-129 mg/dL, Near optimal/above optimal 130-159 mg/dL, Borderline high 160-189 mg/dL, High >189 mg/dL, Very high Secondary prevention optimal LDL Cholesterol levels are recommended to be < 70 mg/dL Performed By: #### 2 4321-2 #### [facility] [id number] [address] [place] [address] [place] LDL/HDL RATIO, NF 1.50 mg/dL Normal <2.54 [facility] Comment on above: Order Comment: Kendell sofia Type: BLOOD SPECIMEN Ordering Facility: [facility] Address: [address] [place] [address] Result Comment: Refe rence: 1. National Cholesterol Education Program ATP III Guideline At-A-Glance Quick Desk Reference: National Heart, Lung, and Blood [place]. National Institutes of Health. 2001: NIH Publication No. 01-3305. 2. An International Atherosclerosis Society position paper: global recommendations for the management of dyslipidemia: executive summary, Atherosclerosis. 2014: 232(2):410-413. Performed By: #### 2 4321-2 #### [facility] CLIA [id number] [address] [place] [address] [place] NON HDL CHOL, NF 120 mg/dL Normal <130 [facility] Comment on above: Order Comment: Kendell black Type: BLOOD SPECIMEN Ordering Facility: [facility] Address: [address] [place] [address] Result Comment: <130 mg/dL, Optimal 130-159 mg/dL, Near optimal/above optimal 160-189 mg/dL, Borderline high 190-219 mg/dL, High >219 mg/dL, Very high Secondary prevention optimal non HDL Cholesterol levels are recommended to be <100 mg/dL Performed By: #### 2 4321-2 #### [facility] CLIA [id number] [address] [place] [address] T CHOL/HDL RATIO NF 2.76 mg/dL Normal <5.10 [facility] Comment on above: Order Comment: Kendell black Type: BLOOD SPECIMEN Ordering Facility: [facility] Address: [address] [place] [address] Performed By: #### 2 4321-2 #### [facility] CLIA [id number] [address] [place] [address] [place] TRIGLYCERIDES, NF 88 mg/dL Normal <150 [facility] Comment on above: Order Comment: Kendell black Type: BLOOD SPECIMEN Ordering Facility: [facility] Address: [address] [place] [address] Result Comment: <150 mg/dL, Normal 150-199 mg/dL, Borderline high 200-499 mg/dL, High >499 mg/dL, Very high Performed By: #### 2 4321-2 #### [facility] CLIA [id number] [address] [place] [address] [place] VLDL CHOLESTEROL, NF 18 mg/dL Normal <30 [facility] Comment on above: Order Comment: Speci men Type: BLOOD SPECIMEN Ordering Facility: [facility] Address: [address] [place] [address] Performed By: #### 2 4321-2 #### [facility] CLIA [id number] [address] [place] [address] [place] Magnesium SerPl-mCncon 01-30 Magnesium [Mass/Vol] 2.3 mg/dL Normal 1.7-2.3 [facility] Comment on above: Order Comment: Speci men Type: BLOOD SPECIMEN Ordering Facility: [facility] Address: [address] [place] [address] Performed By: #### 2 4321-2 #### [facility] CLIA [id number] [address] [place] [address] [place] [facility] TSH SerPl-aCncon 01-31-2024 TSH Qn 3.180 m[IU]/L Normal 0.270-4.200 [facility] Comment on above: Order Comment: Speci men Type: BLOOD SPECIMENOrdering Facility: [facility] Address: [address] [place] [address] Performed By: #### 2 4323-8, LIPNF, 05638-1, 3016-3 ####[facility] LABCLIA [id number] [place] [address] [place] Vit B12 SerPl-mCncon 024 Cobalamin (Vitamin B12) [Mass/Vol] 841 pg/mL Normal 232-1245 [facility] Comment on above: Order Comment: Speci men Type: BLOOD SPECIMEN Ordering Facility: [facility] Address: [address] [place] [address] Performed By: #### 2 4321-2 #### [facility] CLIA [id number] [address] [place] [address] [place] MRI LUMBAR SPINE WO IVCONon 12-03-2022 [facility] EMG(NEURO/NI)on 10-30-2022 [facility] XR Knee - right 4 Viewson IMPRESSION: Postoperative changes from right knee arthroplasty. 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: NAIF Transcribe Date/Time: Oct 26 2022 1:25P Dictated by : CAPO WALDRON MD This examination was interpreted and the report reviewed and electronically signed by: CAPO WALDRON MD on Oct 26 2022 1:27PM [facility] DIVISION OF RADIOLOGY * * *Final Report* * * DATE OF EXAM: Oct 22 2022 1:50PM WOX 5203 - XR KNEE 4V AP/PA BOTH+LAT/TRAMAINE RT / PROCEDURE REASON: multiple diagnoses * * * * Physician Interpretation * * * * EXAM TITLE: XR KNEE 4V AP/PA BOTH+LAT/TRAMAINE RT EXAM DATE/TIME: 10/22/2022 1:50 PM COMPARISON: X-ray knee on 04/24/2020 CLINICAL INDICATION/HISTORY: Right leg pain. TECHNIQUE: AP/PA, lateral and sunrise views of the right knee are presented. FINDINGS: Status post right knee arthroplasty with patellar resurfacing. The alignment has been stable. No failure or loosening of the surgical hardware. There is no evidence of joint effusion. The mineralization of the bones is normal. There is no significant soft tissue swelling. Others: Status post left knee arthroplasty. DIVISION OF RADIOLOGY Provider, [facility] - 10/26/2022 * * *Final Report* * * DATE OF EXAM: Oct 22 2022 1:50PM WOX 5203 - XR KNEE 4V AP/PA BOTH+LAT/TRAMAINE RT / PROCEDURE REASON: multiple diagnoses * * * * Physician Interpretation * * * * EXAM TITLE: XR KNEE 4V AP/PA BOTH+LAT/TRAMAINE RT EXAM DATE/TIME: 10/22/2022 1:50 PM COMPARISON: X-ray knee on 04/24/2020 CLINICAL INDICATION/HISTORY: Right leg pain. TECHNIQUE: AP/PA, lateral and sunrise views of the right knee are presented. FINDINGS: Status post right knee arthroplasty with patellar resurfacing. The alignment has been stable. No failure or loosening of the surgical hardware. There is no evidence of joint effusion. The mineralization of the bones is normal. There is no significant soft tissue swelling. Others: Status post left knee arthroplasty. IMPRESSION IMPRESSION: Postoperative changes from right knee arthroplasty. 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: NAIF Transcribe Date/Time: Oct 26 2022 1:25P Dictated by : CAPO WALDRON MD This examination was interpreted and the report reviewed and electronically signed by: CAPO WALDRON MD on Oct 26 2022 1:27PM EST [facility] XR Knee - right 4 ViewsOrder ed By: C[facility] Provider on 10-26-2022 [facility] XR Knee - right 4 Viewson Radiology Study observation (narrative) [facility] NM CARDIAC PERF STRESS/PHARM on 06-10-2022 NM CARDIAC PERF STRESS/PHARM * * *Final Report* * * DATE OF EXAM: Jun 10 2022 2:20PM [facility] 0006 - NM CARDIAC PERF STRESS/PHARM / PROCEDURE REASON: multiple diagnoses * * * * Physician Interpretation * * * * Stress Disposal Man Report: [facility] Date of service: 06/10/2022 11:30:00 AM Supervising physician: Freddy Frederick MD PATIENT: Name: MS. NIA KIRAN Age: 71 years Gender: F The supervising physician was in the department and immediately available. * * * Final * * * ------ PATIENT: Name: MS. NIA KIRAN Age: 71 years Gender: F CONCLUSIONS: 1. SPECT Perfusion Study: Normal. 2. There is no scintigraphic evidence for inducible ischemia. 3. No evidence of scarred myocardium. 4. Left ventricle is normal in size. The left ventricle systolic function is normal. 5. Right ventricle is normal in size. The right ventricle systolic function is normal. 6. This is a low risk scan. Gated Stress FBP Gated Rest FBP LVEF % 63 60 Prior Study Comparison No prior nuclear cardiology exam available for comparison. Nuclear Med Report:1-Day Gated SPECT Myocardial Perfusion with Regadenoson Stress: Myocardial perfusion imaging was performed at rest 30 minutes following the IV injection of the radiotracer. The patient received 0.4 mg of regadenoson, via rapid IV push, immediately followed by radiotracer IV. Gated post stress tomographic imaging was performed 30 to 60 minutes later. See administered radiotracer and doses below. [facility] Date of service: 06/10/2022 11:30:00 AM Ordering Physician: BRAULIO URRUTIA. Requesting Physician: Indication: Abnormal Baseline ECG, Assessment for suspected CAD, Dyspnea and Preop eval for noncard surg with intermediate risk and poor exercise tolerance Interpreting physician: Adam Donis MD Previous Cardiovascular Interventions: Normal Heart Cath 2018 Height: 160.00 cm BSA: 2.44 m? Weight: 134.00 kg BMI: 52.3 kg/m? Imaging Protocol Limitation Reason Breast attenuation and BMI 52.3. Exam Type: Rest Stress Radiopharm: Tc-99m Tetrofosmin Tc-99m Tetrofosmin Dosage(mCi): 16.2 47.8 Stress Agent: Regadenoson 0.4mg Supply provided from [facility] Resting Blood Press: 129/63 mmHg Image Quality The overall study imaging quality was deemed to be fair. The following technical issues were noted: Breast attenuation and BMI 52.3. FINDINGS: Left Ventricle Wall Motion: Stress IR:3D - All segments are normal. Rest IR:3D - Gated Stress FBP - Reversibility - Gated Rest FBP - Stress IR:3D Stress IR:3D Gated Stress FBP Gated Rest FBP LVEF: 63 % 60 % ED Volume: 132 ml 154 ml ES Volume: 49 ml 62 ml TID: 0.90 Perfusion Findings Stress IR:3D - Summed Score=0 All segments demonstrate normal perfusion. Rest IR:3D - Summed Score=0 All segments demonstrate normal perfusion. Stress IR:3D Rest IR:3D Summed Score=0 Summed Score=0 LEFT VENTRICLE The left ventricle is normal in size. Left ventricular systolic function is normal. Right Ventricle The right ventricle is normal in size. Right ventricle systolic function is normal. Stress Test Findings: There is no scintigraphic evidence for inducible ischemia. There is no evidence of scarring. The left ventricular cavity size is unchanged with stress. * * * Final * * * ------ Stress ECG Report: [facility] Date of service: 06/10/2022 11:30:00 AM Ordering physician: BRAULIO URRUTIA peer support specialist: Tasha Nicole RN Animal Care Attendant: Patricia Mcmillan CEP Interpreting physician: Freddy Frederick MD Patient name: MS. NIA KIRAN Age: 71 years Gender: F Height: 160.00 cm BSA: 2.44 m? Weight: 134.00 kg BMI: 52.3 kg/m? Indication: Abnormal resting ECG, Edema, Encounter for pre-procedural cardiovascular examination for non-cardiac surgery and Encounter for screening for cardiovascular disorders Stress ECG Conclusion: Conclusion: Normal Stress ECG Summary: The patient's resting heart rate was 82 bpm and blood pressure was 129/63 mmHg. The test was terminated due to end of protocol. Other symptoms during the test included SOB. The maximum heart rate was 107 bpm, which is 71% of the predicted heart rate for age. Peak blood pressure was 114/65 mmHg. The double product achieved was [address]46. Previous cardiovascular interventions: Normal Heart Cath 2018 Medications: Last Used SEE EPIC Resting ECG: Normal Sinus Rhythm, WNL and Rare PVCs (<3/Min) Symptoms at rest: No symptoms Pharamcologic Protocol: Regadenoson Stress Exercise Tab (more content not included)... Normal [facility] ACTIVATED PTTon 05-27-2022 aPTT Coag (PPP) [Time] 26.5 s 23.0 - 32.4 sec [facility] Bacteria Ur Culton 3 Bacteria identified Cx Nom (U) CULTURE, URINE: 10,000-<50,000 CFU/mL Three or more organisms, no one type predominant, suggesting contamination during collection. Recollect if clinically indicated. Abnormal [facility] Comment on above: Performed By: #### 5 7021-8, 10619-1 #### [facility] CLIA [id number] [address] [place] [address] [place] Basic metabolic 2000 panelon 05-27-2022 Anion gap [Moles/Vol] 4 mmol/L Low 5-16 [facility] Comment on above: Order Comment: Speci men Type: BLOOD SPECIMEN Ordering Facility: [facility] Address: [address] [place] [address] Performed By: #### 2 4321-2 #### [facility] CLIA [id number] [address] [place] [address] [place] Calcium [Mass/Vol] 9.1 mg/dL Normal 8.5-10.5 [facility] Comment on above: Order Comment: Speci men Type: BLOOD SPECIMEN Ordering Facility: [facility] Address: [address] [place] [address] Performed By: #### 2 4321-2 #### [facility] CLIA [id number] [address] [place] [address] [place] Chloride [Moles/Vol] 103 mmol/L Normal 98-107 [facility] Comment on above: Order Comment: Speci men Type: BLOOD SPECIMEN Ordering Facility: [facility] Address: [address] [place] [address] Performed By: #### 2 4321-2 #### [facility] CLIA [id number] [address] [place] [address] [place] CO2 [Moles/Vol] 30 mmol/L Normal 21-32 [facility] Comment on above: Order Comment: Speci men Type: BLOOD SPECIMEN Ordering Facility: [facility] Address: [address] [place] [address] Performed By: #### 2 4321-2 #### [facility] CLIA [id number] [address] [place] [address] [place] Creatinine [Mass/Vol] 0.94 mg/dL Normal 0.51-0.95 [facility] Comment on above: Order Comment: Speci men Type: BLOOD SPECIMEN Ordering Facility: [facility] Address: [address] [place] [address] Result Comment: [place] ents receiving either N-Acetylcysteine (NAC) or Metamizole prior to venipuncture, may have falsely depressed results. Performed By: #### 2 4321-2 #### [facility] CLIA [id number] [address] [place] [address] [place] ESTIMATED GLOMERULAR FILTRATION RATE 66 mL/min/1.73m??? Normal >=60 [facility] Comment on above: Order Comment: Kendell black Type: BLOOD SPECIMEN Ordering Facility: [facility] Address: [address] [place] [address] Result Comment: Dora mated Glomerular Filtration Rate (eGFR) is calculated using the 2020 CKD-EPI creatinine equation. This equation utilizes serum creatinine, sex, and age as parameters. The creatinine assay has traceable calibration to isotope dilution-mass spectrometry. Refer to KDIGO guidelines for clinical interpretation. In patients with unstable renal function, e.g. those with acute kidney injury, the eGFR may not accurately reflect actual GFR. Performed By: #### 2 4321-2 #### [facility] CLIA [id number] [address] [place] [address] [place] Glucose [Mass/Vol] 106 mg/dL High 70-100 [facility] Comment on above: Order Comment: Kendell black Type: BLOOD SPECIMEN Ordering Facility: [facility] Address: [address] [place] [address] Result Comment: The [place] Diabetes Association (ADA) provides guidance for cutoff values for fasting glucose and random glucose. The ADA defines fasting as no caloric intake for at least 8 hours. Fasting plasma glucose results between 100 to 125 mg/dL indicate increased risk for diabetes (prediabetes). Fasting plasma glucose results greater than or equal to 126 mg/dL meet the criteria for diagnosis of diabetes. In the absence of unequivocal hyperglycemia, results should be confirmed by repeat testing. In a patient with classic symptoms of hyperglycemia or hyperglycemic crisis, random plasma glucose results greater than or equal to 200 mg/dL meet the criteria for diagnosis of diabetes. Reference: Standards of Medical Care in Diabetes 2016, [place] Diabetes Association. Diabetes Care. 2016.39(Suppl 1). Results may be falsely elevated after the administration of Sulfapyridine. Results may be falsely depressed after the administration of Sulfasalazine. Performed By: #### 2 4321-2 #### [facility] CLIA [id number] [address] [place] [address] [place] Potassium [Moles/Vol] 4.8 mmol/L Normal 3.5-5.1 [facility] Comment on above: Order Comment: Speci men Type: BLOOD SPECIMEN Ordering Facility: [facility] Address: [address] [place] [address] Performed By: #### 2 4321-2 #### [facility] CLIA [id number] [address] [place] [address] [place] Sodium [Moles/Vol] 137 mmol/L Normal 136-145 [facility] Comment on above: Order Comment: Speci men Type: BLOOD SPECIMEN Ordering Facility: [facility] Address: [address] [place], [place] [address] Performed By: #### 2 4321-2 #### [facility] CLIA [id number] [address] [place] [address] [place] Urea nitrogen [Mass/Vol] 20 mg/dL Normal 7-26 [facility] Comment on above: Order Comment: Speci men Type: BLOOD SPECIMEN Ordering Facility: [facility] Address: [address] [place] [address] Performed By: #### 2 4321-2 #### [facility] CLIA [id number] [address] [place] [address] [place] Anion gap [Moles/Vol] 4 mmol/L Low 5 - 16 mmol/L [facility] Calcium [Mass/Vol] 9.1 mg/dL 8.5 - 10. 5 mg/dL [facility] Chloride [Moles/Vol] 103 mmol/L 98 - 10 7 mmol/L [facility] CO2 [Moles/Vol] 30 mmol/L 21 - 32 mmol/L [facility] Creatinine [Mass/Vol] 0.94 mg/dL 0.51 - 0.95 mg/dL [facility] Estimated Glomerular Filtration Rate 66 mL/min/1.73m >=60 mL/min/1.73m [facility] Glucose [Mass/Vol] 106 mg/dL High 70 - 100 mg/dL [facility] Potassium [Moles/Vol] 4.8 mmol/L 3.5 - 5.1 mmol/L [facility] Sodium [Moles/Vol] 137 mmol/L 136 - 145 mmol/L [facility] Urea nitrogen [Mass/Vol] 20 mg/dL 7 - 26 mg/dL [facility] CBC W Auto Differential pane l (Bld)on 05-27-2022 Basophils (Bld) [#/Vol] 10*3/uL Normal <0.11 [facility] Comment on above: Order Comment: Speci men Type: BLOOD SPECIMEN Ordering Facility: [facility] Address: [address] [place] [address] Performed By: #### 5 7021-8, 54169-8 #### [facility] CLIA [id number] [address] [place] [address] [place] Basophils/100 WBC (Bld) 0.6 % Normal [facility] Comment on above: Order Comment: Speci men Type: BLOOD SPECIMEN Ordering Facility: [facility] Address: [address] [place] [address] Performed By: #### 5 7021-8, 28009-4 #### [facility] CLIA [id number] [address] [place] [address] [place] Differential cell count method Nom (Bld) Auto Normal [facility] Comment on above: Order Comment: Speci men Type: BLOOD SPECIMEN Ordering Facility: [facility] Address: [address] [address] Performed By: #### 5 7021-8, 48353-1 #### [facility] CLIA [id number] [address] [place] [address] [place] Eosinophils (Bld) [#/Vol] 0.12 10*3/uL Normal <0.46 [facility] Comment on above: Order Comment: Speci men Type: BLOOD SPECIMEN Ordering Facility: [facility] Address: [address] [address] Performed By: #### 5 7021-8, 52234-4 #### [facility] CLIA [id number] [address] [place] [address] [place] Eosinophils/100 WBC (Bld) 3.5 % Normal [facility] Comment on above: Order Comment: Speci men Type: BLOOD SPECIMEN Ordering Facility: [facility] Address: [address] [address] Performed By: #### 5 7021-8, 47279-1 #### [facility] CLIA [id number] [address] [place] [address] [place] Erythrocyte distribution width (RBC) [Ratio] 12.4 % Normal 11.5-15.0 [facility] Comment on above: Order Comment: Speci men Type: BLOOD SPECIMEN Ordering Facility: [facility] Address: [address] [address] Performed By: #### 5 7021-8, 52732-9 #### [facility] CLIA [id number] [address] [place] [address] [place] Hematocrit (Bld) [Volume fraction] 36.8 % Normal 36.0-46.0 [facility] Comment on above: Order Comment: Speci men Type: BLOOD SPECIMEN Ordering Facility: [facility] Address: [address] [address] Performed By: #### 5 7021-8, 92800-8 #### [facility] CLIA [id number] [address] [place] [address] [place] Hemoglobin (Bld) [Mass/Vol] 12.0 g/dL Normal 11.5-15.5 [facility] Comment on above: Order Comment: Speci men Type: BLOOD SPECIMEN Ordering Facility: [facility] Address: [address] [address] Performed By: #### 5 7021-8, 94234-9 #### [facility] CLIA [id number] [address] [place] [address] [place] Immature granulocytes (Bld) [#/Vol] 10*3/uL Normal <0.10 [facility] Comment on above: Order Comment: Speci men Type: BLOOD SPECIMEN Ordering Facility: [facility] Address: [address] [place] [address] Performed By: #### 5 7021-8, 50932-9 #### [facility] CLIA [id number] [address] [place] [address] [place] Immature granulocytes/100 WBC (Bld) 0.0 % Normal [facility] Comment on above: Order Comment: Speci men Type: BLOOD SPECIMEN Ordering Facility: [facility] Address: [address] [place] [address] Performed By: #### 5 7021-8, 08197-4 #### [facility] CLIA [id number] [address] [place] [address] [place] Lymphocytes (Bld) [#/Vol] 0.72 10*3/uL Low 1.00-4.00 [facility] Comment on above: Order Comment: Speci men Type: BLOOD SPECIMEN Ordering Facility: [facility] Address: [address] [place] [address] Performed By: #### 5 7021-8, 18203-9 #### [facility] CLIA [id number] [address] [place] [address] [place] Lymphocytes/100 WBC (Bld) 21.2 % Normal [facility] Comment on above: Order Comment: Speci men Type: BLOOD SPECIMEN Ordering Facility: [facility] Address: [address] [place] [address] Performed By: #### 5 7021-8, 70979-0 #### [facility] CLIA [id number] [address] [place] [address] [place] MCH (RBC) [Entitic mass] 31.9 pg Normal 26.0-34.0 [facility] Comment on above: Order Comment: Speci men Type: BLOOD SPECIMEN Ordering Facility: [facility] Address: [address] [address] Performed By: #### 5 7021-8, 76110-6 #### [facility] CLIA [id number] [address] [place] [address] [place] MCHC (RBC) [Mass/Vol] 32.6 g/dL Normal 30.5-36.0 [facility] Comment on above: Order Comment: Speci men Type: BLOOD SPECIMEN Ordering Facility: [facility] Address: [address] [address] Performed By: #### 5 7021-8, 46232-7 #### [facility] CLIA [id number] [address] [place] [address] [place] MCV (RBC) [Entitic vol] 97.9 fL Normal 80.0-100.0 [facility] Comment on above: Order Comment: Speci men Type: BLOOD SPECIMEN Ordering Facility: [facility] Address: [address] [address] Performed By: #### 5 7021-8, 54358-1 #### [facility] CLIA [id number] [address] [place] [address] [place] Monocytes (Bld) [#/Vol] 0.28 10*3/uL Normal <0.87 [facility] Comment on above: Order Comment: Speci men Type: BLOOD SPECIMEN Ordering Facility: [facility] Address: [address] [address] Performed By: #### 5 7021-8, 30986-1 #### [facility] CLIA [id number] [address] [place] [address] [place] Monocytes/100 WBC (Bld) 8.3 % Normal [facility] Comment on above: Order Comment: Speci men Type: BLOOD SPECIMEN Ordering Facility: [facility] Address: [address] [address] Performed By: #### 5 7021-8, 18109-9 #### [facility] CLIA [id number] [address] [place] [address] [place] Neutrophils (Bld) [#/Vol] 2.25 10*3/uL Normal 1.45-7.50 [facility] Comment on above: Order Comment: Speci men Type: BLOOD SPECIMEN Ordering Facility: [facility] Address: [address] [place] [address] Performed By: #### 5 7021-8, 18519-3 #### [facility] CLIA [id number] [address] [place] [address] [place] Neutrophils/100 WBC (Bld) 66.4 % Normal [facility] Comment on above: Order Comment: Speci men Type: BLOOD SPECIMEN Ordering Facility: [facility] Address: [address] [place] [address] Performed By: #### 5 7021-8, 35508-6 #### [facility] CLIA [id number] [address] [place] [address] [place] Nucleated RBC (Bld) [#/Vol] 10*3/uL Normal <0.01 [facility] Comment on above: Order Comment: Speci men Type: BLOOD SPECIMEN Ordering Facility: [facility] Address: [address] [place] [address] Performed By: #### 5 7021-8, 78466-8 #### [facility] CLIA [id number] [address] [place] [address] [place] Nucleated RBC/100 WBC (Bld) [Ratio] 0.0 /100 WBC Normal [facility] Comment on above: Order Comment: Speci men Type: BLOOD SPECIMEN Ordering Facility: [facility] Address: [address] [place] [address] Performed By: #### 5 7021-8, 41554-5 #### [facility] CLIA [id number] [address] [place] [address] [place] Platelet mean volume (Bld) [Entitic vol] 9.0 fL Normal 9.0-12.7 [facility] Comment on above: Order Comment: Speci men Type: BLOOD SPECIMEN Ordering Facility: [facility] Address: [address] Performed By: #### 5 7021-8, 61125-3 #### [facility] CLIA [id number] [address] [place] [address] [place] Platelets (Bld) [#/Vol] 281 10*3/uL Normal 150-400 [facility] Comment on above: Order Comment: Speci men Type: BLOOD SPECIMEN Ordering Facility: [facility] Address: [address] Performed By: #### 5 7021-8, 85473-2 #### [facility] CLIA [id number] [address] [place] [address] [place] RBC (Bld) [#/Vol] 3.76 10*6/uL Low 3.90-5.20 [facility] Comment on above: Order Comment: Speci men Type: BLOOD SPECIMEN Ordering Facility: [facility] Address: [address] Performed By: #### 5 7021-8, 66093-0 #### [facility] CLIA [id number] [address] [place] [address] [place] WBC (Bld) [#/Vol] 3.39 10*3/uL Low 3.70-11.00 [facility] Comment on above: Order Comment: Speci men Type: BLOOD SPECIMEN Ordering Facility: [facility] Address: [address] [id number] Performed By: #### 5 7021-8, 49586-4 #### [facility] CLIA [id number] [address] [place] [address] [place] Basophils (Bld) [#/Vol] <0.11 k/uL [facility] Basophils/100 WBC (Bld) 0.6 % [facility] Differential cell count method Nom (Bld) Auto [facility] Eosinophils (Bld) [#/Vol] 0.12 10*3/uL <0.46 k/uL [facility] Eosinophils/100 WBC (Bld) 3.5 % [facility] Erythrocyte distribution width (RBC) [Ratio] 12.4 % 11.5 - 15.0 % [facility] Hematocrit (Bld) [Volume fraction] 36.8 % 36.0 - 46.0 % [facility] Hemoglobin (Bld) [Mass/Vol] 12.0 g/dL 11.5 - 15.5 g/dL [facility] Immature granulocytes (Bld) [#/Vol] <0.10 k/uL [facility] Immature granulocytes/100 WBC (Bld) 0.0 % [facility] Lymphocytes (Bld) [#/Vol] 0.72 10*3/uL Low 1.00 - 4.00 k/uL [facility] Lymphocytes/100 WBC (Bld) 21.2 % [facility] MCH (RBC) [Entitic mass] 31.9 pg 26.0 - 34.0 pg [facility] MCHC (RBC) [Mass/Vol] 32.6 g/dL 30.5 - 36.0 g/dL [facility] MCV (RBC) [Entitic vol] 97.9 fL 80.0 - 100.0 fL [facility] Monocytes (Bld) [#/Vol] 0.28 10*3/uL <0.87 k/uL [facility] Monocytes/100 WBC (Bld) 8.3 % [facility] Neutrophils (Bld) [#/Vol] 2.25 10*3/uL 1.45 - 7.50 k/uL [facility] Neutrophils/100 WBC (Bld) 66.4 % [facility] Nucleated RBC (Bld) [#/Vol] <0.01 k/uL [facility] Nucleated RBC/100 WBC (Bld) [Ratio] 0.0 /100 WBC [facility] Platelet mean volume (Bld) [Entitic vol] 9.0 fL 9.0 - 12.7 fL [facility] Platelets (Bld) [#/Vol] 281 10*3/uL 150 - 400 k/uL [facility] RBC (Bld) [#/Vol] 3.76 10*6/uL Low 3.90 - 5.2 0 m/uL [facility] WBC (Bld) [#/Vol] 3.39 10*3/uL Low 3.70 - 11. 00 k/uL [facility] ECG COMPLETEon 05-27-2022 Atrial Rate 87 BPM [facility] Calculated P [place] 40 degrees [facility] Calculated R [place] -5 degrees [facility] Calculated T [place] 38 degrees [facility] P-R Interval 196 ms [facility] QRS Duration 116 ms [facility] QT Interval 402 ms [facility] QTC Calculation (Bazett) 483 ms [facility] Ventricular Rate 87 BPM [facility] [id number] 05-27-2022 ECG01 Ventricular Rate : 8 7 BPM Atrial Rate : 87 BPM P-R Interval : 196 ms QRS Duration : 116 ms Q-T Interval : 402 ms QTC Calculation(Bazett) : 483 ms Calculated P [place] : 40 degrees Calculated R [place] : -5 degrees Calculated T [place] : 38 degrees Normal sinus rhythm Incomplete left bundle branch block Borderline ECG No previous ECGs available Confirmed by NATY QUINONES MD ([id number]) on 05/27/2022 6:39:54 PM NAME : NIA KIRAN PID : [id number] : 1950 Gender : Female Race : ORD : [id number] Procedure Date : May 27 2022 11:56:25 Edit Date : May 27 2022 18:39:58 Diagnosis: Normal sinus rhythm Incomplete left bundle branch block Borderline ECG No previous ECGs available Confirmed by NATY QUINONES MD ([id number]) on 05/27/2022 6:39:54 PM Test Reason : Location : 2 : [facility] Overread By : NATY QUINONES MD Edited By : NATY QUINONES MD Referred By : MARU, Acquired by : [facility], [facility] HbA1c (Bld)on 05-27-2022 Average glucose Estimated from glycated hemoglobin (Bld) [Mass/Vol] 120 mg/dL [facility] Comment on above: Order Comment: Speci men Type: BLOOD SPECIMEN Ordering Facility: [facility] Address: [address] [place] [address] [place] [address] Result Comment: eAG: (Estimated average glucose) is a calculated value from HgbA1c and is school admissions representative of the average blood glucose level in the last 2-3 month period. Performed By: #### 5 7021-8, 03555-9 #### [facility] CLIA [id number] [address] [place] [address] [facility] HbA1c (Bld) [Mass fraction] 5.8 % Normal 4.3-6.0 [facility] Comment on above: Order Comment: Kendell black Type: BLOOD SPECIMEN Ordering Facility: [facility] Address: [address] [place], [place] [id number] Result Comment: [place] Diabetes Association guidelines indicate that patients with HgbA1c in the range 5.7-6.4% are at increased risk for development of diabetes, and intervention by lifestyle modification may be beneficial. HgbA1c greater or equal to 6.5% is considered diagnostic of diabetes. Performed By: #### 5 7021-8, 11875-9 #### [facility] CLIA [id number] [address] [place] [address] [facility] Average glucose Estimated from glycated hemoglobin (Bld) [Mass/Vol] 120 mg/dL [facility] HbA1c (Bld) [Mass fraction] 5.8 % 4.3 - 6.0 % [facility] Laboratory - Microbiology an d Antimicrobial susceptibilityon 05-27-2022 S. aureus and MRSA panel GORGE+probe (Nose) Negative Negative [facility] PT panel Coag (PPP)on 2022 INR Coag (PPP) [Relative time] 1.0 {INR} Normal 0.9-1.3 [facility] Comment on above: Order Comment: Kendell black Type: BLOOD SPECIMEN Ordering Facility: [facility] Address: [address] [place] [id number] Result Comment: Torie min K Antagonist (VKA) Therapeutic Range: INR 2 to 3 (Target INR of 2.5) Note: For patients treated with VKA drugs, such as warfarin, the [place] [employer] 2012 Guideline recommends a therapeutic INR range of 2 to 3 (target INR of 2.5). This recommendation includes high-risk patients with antiphospholipid syndrome with previous arterial or venous thromboembolism, current-generation mechanical or bioprosthetic aortic heart valve replacement. Note: Patients with mechanical aortic valve replacement and additional risk factors for thromboembolic events (atrial fibrillation, previous thromboembolism, LV dysfunction, hypercoagulable conditions) or an older generation mechanical AVR (i.e., ball in-Cage) or any mechanical MVR should have a INR therapeutic range of 2.5 to 3.5 (target INR of 3). Kash GH, et al. Chest 2012, 141:7S-47S Renato RA, et al. [facility] 2017, 70: 252-289 Performed By: #### 3 4528-0, 85246-9 #### [facility] CLIA [id number] [address] [place] [address] STATES [address] [facility] PT Coag (PPP) [Time] 9.9 s Normal 9.7-13.0 [facility] Comment on above: Order Comment: Speci men Type: BLOOD SPECIMEN Ordering Facility: [facility] Address: [address] [place] [address] Performed By: #### 3 4528-0, 92477-1 #### [facility] CLIA [id number] [address] [place] [address] [facility] INR Coag (PPP) [Relative time] 1.0 {INR} 0.9 - 1.3 [facility] PT Coag (PPP) [Time] 9.9 s 9.7 - 1 3.0 sec [facility] STAPH AUREUS PCRon 3 S. aureus and MRSA panel GORGE+probe (Nose) Normal Negative [facility] Comment on above: Order Comment: Speci men Type: SWAB OF INTERNAL NOSE Ordering Facility: [facility] Address: [address] [place] [address] Result Comment: Nega tive for Staphylococcus aureus by PCR. Negative for MRSA by PCR Performed By: #### S APCR #### [facility] CLIA [id number] [address] [place] [address] Urinalysis complete panel (U )on 05-27-2022 Bacteria LM.HPF (Urine sed) [#/Area] None Seen None Seen /HPF [facility] Bilirubin Ql (U) Negative Negative [facility] Clarity (Unsp spec) Clear Clear [facility] Color (U) Straw Yellow [facility] Epithelial cells LM.HPF (Urine sed) [#/Area] Few [facility] Glucose Test strip (U) [Mass/Vol] Negative Negative [facility] Hemoglobin Ql (U) Negative Negative [facility] Ketones Ql (U) Negative Negative [facility] Leukocyte esterase Test strip Ql (U) Negative Negative [facility] Nitrite Ql (U) Negative Negative [facility] pH (U) 5.0 [pH] 5.0 - 8.0 [facility] Protein (U) [Mass/Vol] Negative Negative [facility] RBC LM.HPF (Urine sed) [#/Area] 0-3 /HPF 0-3 /HPF [facility] Specific gravity (U) [Rel density] 1.008 1.005 - 1.030 [facility] Urobilinogen Ql (U) Negative Negative [facility] WBC LM.HPF (Urine sed) [#/Area] 0-5 /HPF 0-5 /HPF [facility] Bacteria LM.HPF (Urine sed) [#/Area] None Seen Normal None Seen [facility] Comment on above: Order Comment: Speci men Type: URINE SPECIMEN Ordering Facility: [facility] Address: [address] [place] [address] Performed By: #### 2 4356-8 #### [facility] CLIA [id number] [address] [place] [address] [place] Bilirubin Ql (U) Negative Normal Negative [facility] Comment on above: Order Comment: Speci men Type: URINE SPECIMEN Ordering Facility: [facility] Address: [address] [place] [address] Performed By: #### 2 4356-8 #### [facility] CLIA [id number] [address] [place] [address] [place] Clarity (Unsp spec) Clear Normal Clear [facility] Comment on above: Order Comment: Speci men Type: URINE SPECIMEN Ordering Facility: [facility] Address: [address] [place] [address] Performed By: #### 2 4356-8 #### [facility] CLIA [id number] [address] [place] [address] [place] Color (U) Straw Normal Yellow [facility] Comment on above: Order Comment: Speci men Type: URINE SPECIMEN Ordering Facility: [facility] Address: [address] [address] Performed By: #### 2 4356-8 #### [facility] CLIA [id number] [address] [place] [address] [place] Epithelial cells LM.HPF (Urine sed) [#/Area] Few Normal [facility] Comment on above: Order Comment: Speci men Type: URINE SPECIMEN Ordering Facility: [facility] Address: [address] [address] Performed By: #### 2 4356-8 #### [facility] CLIA [id number] [address] [place] [address] [place] Glucose Test strip (U) [Mass/Vol] Negative Normal Negative [facility] Comment on above: Order Comment: Speci men Type: URINE SPECIMEN Ordering Facility: [facility] Address: [address] [place] [address] Performed By: #### 2 4356-8 #### [facility] CLIA [id number] [address] [place] [address] [place] Hemoglobin Ql (U) Negative Normal Negative [facility] Comment on above: Order Comment: Speci men Type: URINE SPECIMEN Ordering Facility: [facility] Address: [address] [place] [address] Performed By: #### 2 4356-8 #### [facility] CLIA [id number] [address] [place] [address] [place] Ketones Ql (U) Negative Normal Negative [facility] Comment on above: Order Comment: Speci men Type: URINE SPECIMEN Ordering Facility: [facility] Address: [address] [place] [address] Performed By: #### 2 4356-8 #### [facility] CLIA [id number] [address] [place] [address] [facility] Leukocyte esterase Test strip Ql (U) Negative Normal Negative [facility] Comment on above: Order Comment: Speci men Type: URINE SPECIMEN Ordering Facility: [facility] Address: [address] [place] [address] Performed By: #### 2 4356-8 #### [facility] CLIA [id number] [address] [place] [address] [place] Nitrite Ql (U) Negative Normal Negative [facility] Comment on above: Order Comment: Speci men Type: URINE SPECIMEN Ordering Facility: [facility] Address: [address] [place] [address] Performed By: #### 2 4356-8 #### [facility] CLIA [id number] [address] [place] [address] [place] pH (U) 5.0 [pH] Normal 5.0-8.0 [facility] Comment on above: Order Comment: Speci men Type: URINE SPECIMEN Ordering Facility: [facility] Address: [address] [place] [address] Performed By: #### 2 4356-8 #### [facility] CLIA [id number] [address] [place] [address] [place] Protein (U) [Mass/Vol] Negative Normal Negative [facility] Comment on above: Order Comment: Speci men Type: URINE SPECIMEN Ordering Facility: [facility] Address: [address] [place] [address] Performed By: #### 2 4356-8 #### [facility] CLIA [id number] [address] [place] [address] [place] RBC LM.HPF (Urine sed) [#/Area] 0-3 /HPF Normal 0-3 /HPF [facility] Comment on above: Order Comment: Speci men Type: URINE SPECIMEN Ordering Facility: [facility] Address: [address] [place] [address] Performed By: #### 2 4356-8 #### [facility] CLIA [id number] [address] [place] [address] [place] Specific gravity (U) [Rel density] 1.008 Normal 1.005-1.030 [facility] Comment on above: Order Comment: Speci men Type: URINE SPECIMEN Ordering Facility: [facility] Address: [address] [place] [address] Performed By: #### 2 4356-8 #### [facility] CLIA [id number] [address] [place] [address] [facility] Urobilinogen Ql (U) Negative Normal Negative [facility] Comment on above: Order Comment: Speci men Type: URINE SPECIMEN Ordering Facility: [facility] Address: [address] [place] [address] Performed By: #### 2 4356-8 #### [facility] CLIA [id number] [address] [place] [address] [place] WBC LM.HPF (Urine sed) [#/Area] 0-5 /HPF Normal 0-5 /HPF [facility] Comment on above: Order Comment: Speci men Type: URINE SPECIMEN Ordering Facility: [facility] Address: [address] [place] [address] Performed By: #### 2 4356-8 #### [facility] CLIA [id number] [address] [place] [address] [place] aPTT PPPon 05-27-2022 aPTT Coag (PPP) [Time] 26.5 s Normal 23.0-32.4 [facility] Comment on above: Order Comment: Speci men Type: BLOOD SPECIMEN Ordering Facility: [facility] Address: [address] [place] [address] Result Comment: Ther apeutic Heparin Reference Range: High Dose: 46-75 seconds (DVT/PE) Low Dose: 39-60 seconds (Acute Coronary Syndrome) For low molecular weight heparin or danaparoid, monitoring is often NOT necessary, but the heparin assay, Xa inhibition assay (send out) may be used in certain circumstances, as the PTT is generally insensitive to the effect of these agents. Direct thrombin inhibitors are becoming more widely utilized and these drugs are often monitored using the PTT. Performed By: #### 3 4528-0, 17440-8 #### [facility] CLIA [id number] [address] [place] [address] [place] ELISE SCREENINGon 03-27-20[address] [facility] [address] SHOULDER W/O CONTRAST LEF Ton 02-17-2022 CT SHOULDER W/O CONTRAST LEFT ORIGINAL EXAMINATION: CT OF THE LEFT SHOULDER WITHOUT CONTRAST 02/16/2022 5:01 pm TECHNIQUE: CT of the left shoulder was performed without the administration of intravenous contrast. Multiplanar reformatted images are provided for review. Automated exposure control, iterative reconstruction, and/or weight based adjustment of the mA/kV was utilized to reduce the radiation dose to as low as reasonably achievable. COMPARISON: None. HISTORY ORDERING SYSTEM PROVIDED HISTORY: Reason for Exam: Chronic pain in left shoulder. Arthrex protocol of surgical procedure. FINDINGS: Bones: No acute fracture or dislocation. Prior humeral bone tunnels noted. A small amount of high density/postsurgical material is present within the deep margin of the medial tunnel. Moderate glenohumeral degenerative change with a 0.9 cm ossicle and/or heterotopic bone formation at the inferior margin of the humeral head. Superior de-centralization of the humeral head with respect to the glenoid suggests prior rotator cuff tear. Moderate acromioclavicular degenerative changes. Soft Tissue: No soft tissue hematoma or fluid collection. No significant joint effusion. Other: No acute abnormality in the included thoracic structures. IMPRESSION: Moderate glenohumeral and acromioclavicular degenerative changes status post prior rotator cuff injury. I have personally reviewed the images of this examination and agree with the resident's findings and interpretation. Interpreted by: Blayne Asif MD Preliminary Report By: Antohny Woodward Electronically signed By Blayne Asif MD Dictated Date: 02/17/2022 1:19:07 PM Prelim Date: 02/17/2022 3:14:58 PM Sign Date: 02/17/2022 3:14:58 PM Ordering Provider: YAMILKA MAHONEY [facility] ([place]) Basic metabolic 2000 panelon 02-05-2022 Anion gap [Moles/Vol] 10 mmol/L 9 - 18 mmol/L [facility] Calcium [Mass/Vol] 9.3 mg/dL 8.5 - 10. 2 mg/dL [facility] Chloride [Moles/Vol] 101 mmol/L 97 - 10 5 mmol/L [facility] CO2 [Moles/Vol] 23 mmol/L 22 - 30 mmol/L [facility] Creatinine [Mass/Vol] 0.86 mg/dL 0.58 - 0.96 mg/dL [facility] Estimated Glomerular Filtration Rate 73 mL/min/1.73m >=60 mL/min/1.73m [facility] Glucose [Mass/Vol] 90 mg/dL 74 - 99 mg/dL [facility] Potassium [Moles/Vol] 5.0 mmol/L 3.7 - 5.1 mmol/L [facility] Sodium [Moles/Vol] 134 mmol/L Low 136 - 144 mmol/L [facility] Urea nitrogen [Mass/Vol] 19 mg/dL 7 - 21 mg/dL [facility] Absolute lymphocyte counton 07-10-2021 Lymphocytes Auto (Unsp spec) [#/Vol] 1.07 10*3/uL 0.83-4.51 [facility] Work Phone: Basophil percentageon 2021 Basophils/100 WBC (Bld) 1.0 % 0-1 [facility] Work Phone: Eosinophils/100 WBC (Bld) 1.9 % 0-5 [facility] Work Phone: Neutrophils (Bld) [#/Vol] 2.6 10*3/uL 2.0-7.7 [facility] Work Phone: Neutrophils/100 WBC (Bld) 62.6 % 47-70 [facility] Work Phone: WBC (Bld) [#/Vol] 4.1 10*3/uL 4.4-11.0 [facility] Work Phone: Blood erythrocytes count (nu mber/volume)on 07-10-2021 RBC (Bld) [#/Vol] 3.95 10*6/uL 4.2-5.4 [facility] Work Phone: Blood hemoglobin measurement (mass/volume)on 07-10-2021 Hemoglobin (Bld) [Mass/Vol] 12.6 g/dL 12.0-15.0 [facility] Work Phone: Blood lymphocytes/100 leukoc yteson 07-10-2021 Lymphocytes/100 WBC (Bld) 26.0 % 19-41 [facility] Work Phone: Blood monocytes/100 leukocyt eson 07-10-2021 Monocytes/100 WBC (Bld) 8.3 % 0-10 [facility] Work Phone: Blood platelet mean volumeon 07-10-2021 Platelet mean volume (Bld) [Entitic vol] 9.0 fL 6.2-12.0 [facility] Work Phone: Determination of erythrocyte mean corpuscular volume (MCV)on 07-10-2021 MCV (RBC) [Entitic vol] 98.0 fL 81-99 [facility] Work Phone: Hematocrit Auto (Bld) [Volum e fraction]on 07-10-2021 Hematocrit (Bld) [Volume fraction] 38.7 % 37-47 [facility] Work Phone: Laboratory - Hematology and Cell countson 07-10-2021 Erythrocyte distribution width (RBC) [Entitic vol] 45.9 fL 35.1-43.9 [facility] Work Phone: Erythrocyte distribution width (RBC) [Ratio] 12.7 % 11.6-14.6 [facility] Work Phone: Immature granulocytes/100 WBC (Bld) 0.200 % 0.0-0.9 [facility] Work Phone: Comment on above: IG% - Immature Granu locytes (promyelocytes, myelocytes and metamyelocytes) > 1% indicates that a LEFT SHIFT is Present. MCH (RBC) [Entitic mass] 31.9 pg 27.0-32.0 [facility] Work Phone: Nucleated RBC/100 WBC (Bld) [Ratio] 0 % 0-5 [facility] Work Phone: MCHC Auto (RBC) [Mass/Vol]on 07-10-2021 MCHC (RBC) [Mass/Vol] 32.6 g/dL 32-36 [facility] Work Phone: Platelets bldon 07-10-2021 Platelets (Bld) [#/Vol] 357 10*3/uL 150-450 [facility] Work Phone: No Panel Informationon 04-25 IMPRESSION: Postsurgical changes of bilateral total knee arthroplasties with no acute complications identified Postsurgical and degenerative changes of both hands as detailed above 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 Transcribe Date/Time: Apr 25 2020 4:36A Dictated by : DAVID GODWIN MD This examination was interpreted and the report reviewed and electronically signed by: DAVID GODWIN MD on Apr 25 2020 4:41AM EST DIVISION OF RADIOLOGY [facility] XR Foot - left AP and Latera walter 04-25-2020 IMPRESSION: Postsurgical and degenerative changes as described Hammertoe deformities 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: [facility] Transcribe Date/Time: Apr 25 2020 4:34A Dictated by : DAVID GODWIN MD This examination was interpreted and the report reviewed and electronically signed by: DAVID GODWIN MD on Apr 25 2020 4:35AM EST DIVISION OF RADIOLOGY * * *Final Report* * * DATE OF EXAM: Apr 24 2020 5:36PM WOX 5608 - XR FOOT 2V AP/LAT LT / PROCEDURE REASON: Pain * * * * Physician Interpretation * * * * EXAMINATION: XR FOOT 2V AP/LAT LT CLINICAL HISTORY: Pain Technique: XR FOOT 2V AP/LAT LT -- BILATERAL with 3 views on 3 images Comparison: 11/16/2013 RESULT: There are postsurgical changes of prior bunionectomy and suspected remote distal great toe metatarsal osteotomy. 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 No acute fracture is identified. There are hammertoe deformities of multiple toes. 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 Plantar and retrocalcaneal enthesophytes are noted. The soft tissue structures are unremarkable. DIVISION OF RADIOLOGY Provider, [facility] Rodriguez Darden - 04/25/2020 * * *Final Report* * * DATE OF EXAM: Apr 24 2020 5:36PM WOX 5608 - XR FOOT 2V AP/LAT LT / PROCEDURE REASON: Pain * * * * Physician Interpretation * * * * EXAMINATION: XR FOOT 2V AP/LAT LT CLINICAL HISTORY: Pain Technique: XR FOOT 2V AP/LAT LT -- BILATERAL with 3 views on 3 images Comparison: 11/16/2013 RESULT: There are postsurgical changes of prior bunionectomy and suspected remote distal great toe metatarsal osteotomy. 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 No acute fracture is identified. There are hammertoe deformities of multiple toes. 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 Plantar and retrocalcaneal enthesophytes are noted. The soft tissue structures are unremarkable. 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[facility] Transcribe Date/Time: Apr 25 2020 4:34A Dictated by : DAVID GODWIN MD This examination was interpreted and the report reviewed and electronically signed by: DAVID GODWIN MD on Apr 25 2020 4:35AM EST [facility] XR Foot - right AP and Later heydi 04-25-2020 IMPRESSION: Postsurgical changes of bunionectomy DJD as detailed above Pes planus 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: [facility] Transcribe Date/Time: Apr 25 2020 4:32A Dictated by : DAVID GODWIN MD This examination was interpreted and the report reviewed and electronically signed by: DAVID GODWIN MD on Apr 25 2020 4:34AM [facility] DIVISION OF RADIOLOGY * * *Final Report* * * DATE OF EXAM: Apr 24 2020 5:36PM WOX 5609 - XR FOOT 2V AP/LAT RT / PROCEDURE REASON: Pain * * * * Physician Interpretation * * * * EXAMINATION: XR FOOT 2V AP/LAT RT CLINICAL HISTORY: Pain Technique: XR FOOT 2V AP/LAT RT -- BILATERAL with 3 views on 3 images Comparison: 11/16/2013 RESULT: There is pes planus deformity. There are postsurgical changes of prior bunionectomy. There are hammertoe deformities and multiple toes. There is mild midfoot DJD with osteophytosis. 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 No acute fracture or osseous lesions are identified. Plantar calcaneal enthesophytes are noted. Soft tissue structures are unremarkable. DIVISION OF RADIOLOGY Provider, María Fri[facility] - 04/25/2020 * * *Final Report* * * DATE OF EXAM: Apr 24 2020 5:36PM WOX 5609 - XR FOOT 2V AP/LAT RT / PROCEDURE REASON: Pain * * * * Physician Interpretation * * * * EXAMINATION: XR FOOT 2V AP/LAT RT CLINICAL HISTORY: Pain Technique: XR FOOT 2V AP/LAT RT -- BILATERAL with 3 views on 3 images Comparison: 11/16/2013 RESULT: There is pes planus deformity. There are postsurgical changes of prior bunionectomy. There are hammertoe deformities and multiple toes. There is mild midfoot DJD with osteophytosis. 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 No acute fracture or osseous lesions are identified. Plantar calcaneal enthesophytes are noted. Soft tissue structures are unremarkable. IMPRESSION IMPRESSION: Postsurgical changes of bunionectomy DJD as detailed above Pes planus 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 Transcribe Date/Time: Apr 25 2020 4:32A Dictated by : DAVID GODWIN MD This examination was interpreted and the report reviewed and electronically signed by: DAVID GODWIN MD on Apr 25 2020 4:34AM EST [facility] XR Foot - right AP and Later alOrdered By: [facility] Provider on 04-25-2020 [facility] XR Hand - bilateral PA and L ateral and Obliqueon 04-25-2020 * * *Final Report* * * DATE OF EXAM: Apr 24 2020 5:36PM WOX 5556 - XR HAND 3V PA/LAT/OBL NOLAN / PROCEDURE REASON: Pain * * * * Physician Interpretation * * * * EXAMINATION: XR KNEE 3V AP/LAT/TRAMAINE NOLAN, XR HAND 3V PA/LAT/OBL NOLAN CLINICAL HISTORY: Pain Technique: XR KNEE 3V AP/LAT/TRAMAINE NOLAN, XR HAND 3V PA/LAT/OBL NOLAN -- BILATERAL with 4 (accession [id number]), 3 (accession [id number]) views on 4 (accession [id number]), 3 (accession [id number]) images Comparison: None RESULT: Right knee: There are postsurgical changes of a semiconstrained right total knee arthroplasty with patellar resurfacing. No acute fracture or periprosthetic lucency is identified. There is no joint effusion. Soft tissue structures are unremarkable. Left knee: There are postsurgical changes of a left total knee arthroplasty with patellar resurfacing. No acute fracture or periprosthetic lucency is identified. There is no joint effusion. Right hand: There are postsurgical changes of prior resection of the trapezium. No acute fracture or osseous lesions are identified. There is narrowing of multiple MCP, PIP and DIP joints with osteophytes indicating DJD. Findings are most advanced at the index and long finger MCP joints. Soft tissue structures are unremarkable. Left hand: There are postsurgical changes of prior resection of the trapezium. There is negative ulnar variance. No acute fracture or osseous lesions are identified. There is narrowing of multiple MCP, PIP and DIP joints indicating DJD. Findings are most advanced at the index finger MCP joint. The soft tissue structures are unremarkable. DIVISION OF RADIOLOGY Provider, [facility] - 04/25/2020 * * *Final Report* * * DATE OF EXAM: Apr 24 2020 5:36PM WOX 5556 - XR HAND 3V PA/LAT/OBL NOLAN / PROCEDURE REASON: Pain * * * * Physician Interpretation * * * * EXAMINATION: XR KNEE 3V AP/LAT/TRAMAINE NOLAN, XR HAND 3V PA/LAT/OBL NOLAN CLINICAL HISTORY: Pain Technique: XR KNEE 3V AP/LAT/TRAMAINE NOLAN, XR HAND 3V PA/LAT/OBL NOLAN -- BILATERAL with 4 (accession [id number]), 3 (accession [id number]) views on 4 (accession [id number]), 3 (accession [id number]) images Comparison: None RESULT: Right knee: There are postsurgical changes of a semiconstrained right total knee arthroplasty with patellar resurfacing. No acute fracture or periprosthetic lucency is identified. There is no joint effusion. Soft tissue structures are unremarkable. Left knee: There are postsurgical changes of a left total knee arthroplasty with patellar resurfacing. No acute fracture or periprosthetic lucency is identified. There is no joint effusion. Right hand: There are postsurgical changes of prior resection of the trapezium. No acute fracture or osseous lesions are identified. There is narrowing of multiple MCP, PIP and DIP joints with osteophytes indicating DJD. Findings are most advanced at the index and long finger MCP joints. Soft tissue structures are unremarkable. Left hand: There are postsurgical changes of prior resection of the trapezium. There is negative ulnar variance. No acute fracture or osseous lesions are identified. There is narrowing of multiple MCP, PIP and DIP joints indicating DJD. Findings are most advanced at the index finger MCP joint. The soft tissue structures are unremarkable. 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: [employer] Transcribe Date/Time: Apr 25 2020 4:36A Dictated by : DAVID GODWIN MD This examination was interpreted and the report reviewed and electronically signed by: DAVID GODWIN MD on Apr 25 2020 4:41AM EST [facility] XR Knee - bilateral 3 Viewso n 04-25-2020 * * *Final Report* * * DATE OF EXAM: Apr 24 2020 5:36PM WOX 5635 - XR KNEE 3V AP/LAT/TRAMAINE NOLAN / PROCEDURE REASON: Pain * * * * Physician Interpretation * * * * EXAMINATION: XR KNEE 3V AP/LAT/TRAMAINE NOLAN, XR HAND 3V PA/LAT/OBL NOLAN CLINICAL HISTORY: Pain Technique: XR KNEE 3V AP/LAT/TRAMAINE NOLAN, XR HAND 3V PA/LAT/OBL NOLAN -- BILATERAL with 4 (accession [id number]), 3 (accession [id number]) views on 4 (accession [id number]), 3 (accession [id number]) images Comparison: None RESULT: Right knee: There are postsurgical changes of a semiconstrained right total knee arthroplasty with patellar resurfacing. No acute fracture or periprosthetic lucency is identified. There is no joint effusion. Soft tissue structures are unremarkable. Left knee: There are postsurgical changes of a left total knee arthroplasty with patellar resurfacing. No acute fracture or periprosthetic lucency is identified. There is no joint effusion. Right hand: There are postsurgical changes of prior resection of the trapezium. No acute fracture or osseous lesions are identified. There is narrowing of multiple MCP, PIP and DIP joints with osteophytes indicating DJD. Findings are most advanced at the index and long finger MCP joints. Soft tissue structures are unremarkable. Left hand: There are postsurgical changes of prior resection of the trapezium. There is negative ulnar variance. No acute fracture or osseous lesions are identified. There is narrowing of multiple MCP, PIP and DIP joints indicating DJD. Findings are most advanced at the index finger MCP joint. The soft tissue structures are unremarkable. DIVISION OF RADIOLOGY Provider, [facility] - 04/25/2020 * * *Final Report* * * DATE OF EXAM: Apr 24 2020 5:36PM WOX 5635 - XR KNEE 3V AP/LAT/TRAMAINE NOLAN / PROCEDURE REASON: Pain * * * * Physician Interpretation * * * * EXAMINATION: XR KNEE 3V AP/LAT/TRAMAINE NOLAN, XR HAND 3V PA/LAT/OBL NOLAN CLINICAL HISTORY: Pain Technique: XR KNEE 3V AP/LAT/TRAMAINE NOLAN, XR HAND 3V PA/LAT/OBL NOLAN -- BILATERAL with 4 (accession [id number]), 3 (accession [id number]) views on 4 (accession [id number]), 3 (accession [id number]) images Comparison: None RESULT: Right knee: There are postsurgical changes of a semiconstrained right total knee arthroplasty with patellar resurfacing. No acute fracture or periprosthetic lucency is identified. There is no joint effusion. Soft tissue structures are unremarkable. Left knee: There are postsurgical changes of a left total knee arthroplasty with patellar resurfacing. No acute fracture or periprosthetic lucency is identified. There is no joint effusion. Right hand: There are postsurgical changes of prior resection of the trapezium. No acute fracture or osseous lesions are identified. There is narrowing of multiple MCP, PIP and DIP joints with osteophytes indicating DJD. Findings are most advanced at the index and long finger MCP joints. Soft tissue structures are unremarkable. Left hand: There are postsurgical changes of prior resection of the trapezium. There is negative ulnar variance. No acute fracture or osseous lesions are identified. There is narrowing of multiple MCP, PIP and DIP joints indicating DJD. Findings are most advanced at the index finger MCP joint. The soft tissue structures are unremarkable. 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: [employer] Transcribe Date/Time: Apr 25 2020 4:36A Dictated by : DAVID GODWIN MD This examination was interpreted and the report reviewed and electronically signed by: DAVID GODWIN MD on Apr 25 2020 4:41AM EST [facility] No Panel Informationon 04-24 Radiology Study observation (narrative) [facility] Basic Metabolic Panelon 04-01 Anion gap [Moles/Vol] 7 mmol/L Normal 5-10 [facility] Comment on above: Performed By: #### B MP #### [facility] [address] [place] [id number] Calcium [Mass/Vol] 8.8 mg/dL Normal 8.5-10.1 [facility] Comment on above: Performed By: #### B MP #### [facility] [address] [place] [address] 20246 Chloride [Moles/Vol] 99 mmol/L Normal 98-107 [facility] Comment on above: Performed By: #### B MP #### [facility] [address] [place] [address] 88460 CO2 [Moles/Vol] 26 mmol/L Normal 21-32 [facility] Comment on above: Performed By: #### B MP #### [facility] [address] [place] [address]646 Creatinine [Mass/Vol] 0.87 mg/dL Normal 0.60-1.30 [facility] Comment on above: Performed By: #### B MP #### [facility] [address] [place] [address] 78862 eGFR -Amer >60 Normal >=60 [facility] Comment on above: Performed By: #### B MP #### [facility] [address] [place] [address] 46806 GFR/1.73 sq M predicted among non-blacks MDRD (S/P/Bld) [Vol rate/Area] mL/min/{1.73_m2} Normal >=60 [facility] Comment on above: Performed By: #### B MP #### [facility] [address] [place], [place] [id number] Glucose [Mass/Vol] 120 mg/dL High 74-106 [facility] Comment on above: Performed By: #### B MP #### [facility] [address] [place] [phone] Potassium [Moles/Vol] 3.7 mmol/L Normal 3.5-5.1 [facility] Comment on above: Performed By: #### B MP #### [facility] [address] [place], [place] [id number] Sodium [Moles/Vol] 132 mmol/L Low 136-145 [facility] Comment on above: Performed By: #### B MP #### [facility] [address] [place], [place] [id number] Urea nitrogen [Mass/Vol] 14 mg/dL Normal 7-18 [facility] Comment on above: Performed By: #### B MP #### [facility] [address] [place], [place] [id number] CBC with Diffon 04-10-2019 Basophils (Bld) [#/Vol] 0.0 x(10)3/cumm Normal 0.0-0.1 [facility] Comment on above: Performed By: #### C BCDIFF #### [facility] [address] [place] [address]17 Basophils/100 WBC (Bld) 0.4 % Normal 0.0-1.0 [facility] Comment on above: Performed By: #### C BCDIFF #### [facility] [address] [place] [address]289 Eosinophils (Bld) [#/Vol] 0.1 x(10)3/cumm Normal 0.0-0.4 [facility] Comment on above: Performed By: #### C BCDIFF #### [facility] [address] [place] [address]92 Eosinophils/100 WBC (Bld) 1.4 % Normal 0.0-6.1 [facility] Comment on above: Performed By: #### C BCDIHENRIK #### [facility] [address] [place] [address] Erythrocyte distribution width (RBC) [Ratio] 14.3 % Normal 11.1-15.3 [facility] Comment on above: Performed By: #### C BCDIHENRIK #### [facility] [address] [place] [address] Hematocrit (Bld) [Volume fraction] 35.9 % Normal 34.6-45.0 [facility] Comment on above: Performed By: #### C BCDIHENRIK #### [facility] [address] [place] [address]253 Hemoglobin (Bld) [Mass/Vol] 12.2 g/dL Normal 11.5-15.5 [facility] Comment on above: Performed By: #### C BCDIHENRIK #### [facility] [address] [place] [address] 09086 Lymphocytes (Bld) [#/Vol] 0.7 x(10)3/cumm Low 0.8-2.9 [facility] Comment on above: Performed By: #### C BCDIHENRIK #### [facility] [address] [place] [address] 39750 Lymphocytes/100 WBC (Bld) 13.0 % Normal 12.2-42.6 [facility] Comment on above: Performed By: #### C BCDIFF #### [facility] [address] [place] [address] 61487 MCH (RBC) [Entitic mass] 32.8 pg Normal 27.2-33.6 [facility] Comment on above: Performed By: #### C BCDIHENRIK #### [facility] [address] [place] [address] 47552 MCHC (RBC) [Mass/Vol] 34.0 g/dL Normal 32.9-35.3 [facility] Comment on above: Performed By: #### C BCDIHENRIK #### [facility] [address] [place] [address] 72162 MCV (RBC) [Entitic vol] 96.3 fL Normal 81.3-96.7 [facility] Comment on above: Performed By: #### C BCDIFF #### [facility] [address] [place] [address]019 Monocytes (Bld) [#/Vol] 0.4 x(10)3/cumm Normal 0.2-0.8 [facility] Comment on above: Performed By: #### C BCDIFF #### [facility] [address] [place] [address] 55849 Monocytes/100 WBC (Bld) 7.4 % Normal 3.3-11.6 [facility] Comment on above: Performed By: #### C BCDIFF #### [facility] [address] [place] [address] 35976 Neutrophils (Bld) [#/Vol] 4.3 x(10)3/cumm Normal 1.3-7.4 [facility] Comment on above: Performed By: #### C BCDIFF #### [facility] [address] [place] [address] 30379 Neutrophils/100 WBC (Bld) 77.8 % Normal 44.9-78.8 [facility] Comment on above: Performed By: #### C BCDIFF #### [facility] [address] [place] [address] 13300 Platelet mean volume (Bld) [Entitic vol] 7.0 fL Normal 6.4-10.0 [facility] Comment on above: Performed By: #### C BCDIFF #### [facility] [address] [place] [address]249 Platelets (Bld) [#/Vol] 480 x(10)3/cumm High 138-367 [facility] Comment on above: Performed By: #### C BCDIFF #### [facility] [address] [place] [address] 11263 Plt Morph Normal [facility] Comment on above: Performed By: #### C BCDIFF #### [facility] [address] [place] [address] 09194 RBC (Bld) [#/Vol] 3.73 X(10)6/cumm Low 3.90-5.10 [facility] Comment on above: Performed By: #### C BCDIFF #### [facility] [address] [place] [address] 47519 RBC Morph cont [facility] Comment on above: Performed By: #### C BCDIFF #### [facility] [address] [place] [address] 28778 RBC morphology finding Nom (Bld) [facility] Comment on above: Performed By: #### C BCDIFF #### [facility] [address] [place] [address] 98837 WBC (Bld) [#/Vol] 5.5 x(10)3/cumm Normal 3.6-10.3 [facility] Comment on above: Performed By: #### C BCDIFF #### [facility] [address] [place], [place] [id number] WBC Morph Normal [facility] Comment on above: Performed By: #### C BCDIFF #### [address] [address] Vital Signs Date Time Vital Sign Value Performing Clinician Facility 08-10-2024 14:24-0400 Body height 160.[address] Braulio Urrutia MD Work Phone: [facility] 08-10-2024 14:24-0400 Body mass index (BMI) [Ratio] 49.4 kg/m2 Dr. Braulio Urrutia MD Work Phone: [facility] 08-10-2024 14:24-0400 Body weight 126.[address] Braulio Urrutia MD Work Phone: [facility] 08-10-2024 12:50-0400 Body mass index (BMI) [Ratio] 49.6 kg/m2 Jenni Stahl APRN.MARINE EQUIPMENT PRESERVATION INSPECTOR Work Phone: [facility] 08-10-2024 12:50-0400 Body weight 127 kg Jenni Knoble FENCE MAKER.MARINE EQUIPMENT PRESERVATION INSPECTOR Work Phone: [facility] 08-10-2024 12:50-0400 Diastolic blood pressure 76 mm[Hg] Jenni Stahl FENCE MAKER.MARINE EQUIPMENT PRESERVATION INSPECTOR Work Phone: [facility] 08-10-2024 12:50-0400 Heart rate 88 /min Jenni Stahl FENCE MAKER.MARINE EQUIPMENT PRESERVATION INSPECTOR Work Phone: [facility] 08-10-2024 12:50-0400 Systolic blood pressure 111 mm[Hg] Jenni Stahl FENCE MAKER.MARINE EQUIPMENT PRESERVATION INSPECTOR Work Phone: [facility] 07-03-2024 10:50-0400 Body mass index (BMI) [Ratio] 50.38 kg/m2 Jenni Stahl FENCE MAKER.MARINE EQUIPMENT PRESERVATION INSPECTOR Work Phone: [facility] 07-03-2024 10:50-0400 Body weight 129 kg Jenni Stahl FENCE MAKER.MARINE EQUIPMENT PRESERVATION INSPECTOR Work Phone: [facility] 07-03-2024 10:50-0400 Diastolic blood pressure 75 mm[Hg] Jenni Stahl FENCE MAKER.MARINE EQUIPMENT PRESERVATION INSPECTOR Work Phone: [facility] 07-03-2024 10:50-0400 Heart rate 98 /min Jenni Stahl FENCE MAKER.MARINE EQUIPMENT PRESERVATION INSPECTOR Work Phone: [facility] 07-03-2024 10:50-0400 Systolic blood pressure 108 mm[Hg] Jenni Stahl FENCE MAKER.MARINE EQUIPMENT PRESERVATION INSPECTOR Work Phone: [facility] 06-27-2024 17:48-0400 Body temperature 97.7 [degF] DARRELL AGOSTO MD [facility] 06-27-2024 17:48-0400 Body weight 129 kg DARRELL AGOSTO MD [facility] 06-27-2024 17:48-0400 Diastolic Blood Pressure Non-Invasive 93 mm[Hg] DARRELL AGOSTO MD [facility] 06-27-2024 17:48-0400 Heart rate 104 /min DARRELL AGOSTO MD [facility] 06-27-2024 17:48-0400 Respiratory rate 16 /min DARRELL AGOSTO MD [facility] 06-27-2024 17:48-0400 Systolic Blood Pressure Non-Invasive 158 mm[Hg] DARRELL AGOSTO MD [facility] 06-27-2024 16:53-0400 Body mass index (BMI) [Ratio] 50.46 kg/m2 Yen Rahman FENCE MAKER.MARINE EQUIPMENT PRESERVATION INSPECTOR Work Phone: [facility] 06-27-2024 16:53-0400 Body temperature 97.59 [degF] Yen Rahman FENCE MAKER.MARINE EQUIPMENT PRESERVATION INSPECTOR Work Phone: [facility] 06-27-2024 16:53-0400 Body weight 129.2 kg Yen Rahman FENCE MAKER.MARINE EQUIPMENT PRESERVATION INSPECTOR Work Phone: [facility] 06-27-2024 16:53-0400 Diastolic blood pressure 80 mm[Hg] Yen Rahman FENCE MAKER.MARINE EQUIPMENT PRESERVATION INSPECTOR Work Phone: [facility] 06-27-2024 16:53-0400 Heart rate 116 /min Yen Rahman FENCE MAKER.MARINE EQUIPMENT PRESERVATION INSPECTOR Work Phone: [facility] 06-27-2024 16:53-0400 Respiratory rate 18 /min Yen Rahman FENCE MAKER.MARINE EQUIPMENT PRESERVATION INSPECTOR Work Phone: [facility] 06-27-2024 16:53-0400 SaO2% (BldA) [Mass fraction] 94 % Yen Rahman FENCE MAKER.MARINE EQUIPMENT PRESERVATION INSPECTOR Work Phone: [facility] 06-27-2024 16:53-0400 Systolic blood pressure 124 mm[Hg] Yen Rahman FENCE MAKER.MARINE EQUIPMENT PRESERVATION INSPECTOR Work Phone: [facility] 05-01-2024 13:30-0500 Body height 160.[address] Braulio Urrutia MD Work Phone: [facility] 05-01-2024 13:30-0500 Body mass index (BMI) [Ratio] 51.5 kg/m2 Dr. Braulio Urrutia MD Work Phone: [facility] 05-01-2024 13:30-0500 Body weight 132.[address] Braulio Urrutia MD Work Phone: [facility] 02-25-2024 11:54-0500 Body temperature 97.2 [degF] Lj Finelli DO Work Phone: [facility] 02-25-2024 11:54-0500 Diastolic blood pressure 60 mm[Hg] Lj Finelli DO Work Phone: [facility] 02-25-2024 11:54-0500 Heart rate 78 /min Lj Finelli DO Work Phone: [facility] 02-25-2024 11:54-0500 Respiratory rate 18 /min Lj Finelli DO Work Phone: [facility] 02-25-2024 11:54-0500 SaO2% (BldA) [Mass fraction] 99 % Lj Finelli DO Work Phone: [facility] 02-25-2024 11:54-0500 Systolic blood pressure 118 mm[Hg] Lj Finelli DO Work Phone: [facility] 02-09-2024 12:59-0500 Body height 160 cm Braulio Urrutia MD Work Phone: [facility] 02-09-2024 12:59-0500 Body mass index (BMI) [Ratio] 50.66 kg/m2 Braulio Urrutia MD Work Phone: [facility] 02-09-2024 12:59-0500 Body weight 129.73 kg Braulio Urrutia MD Work Phone: [facility] 02-09-2024 12:59-0500 Diastolic blood pressure 76 mm[Hg] Braulio Urrutia MD Work Phone: [facility] 02-09-2024 12:59-0500 Heart rate 76 /min Braulio Urrutia MD Work Phone: [facility] 02-09-2024 12:59-0500 Respiratory rate 16 /min Braulio Urrutia MD Work Phone: [facility] 02-09-2024 12:59-0500 Systolic blood pressure 116 mm[Hg] Braulio Urrutia MD Work Phone: [facility] 02-04-2024 13:06-0500 Body height 160 cm [facility] 2 Work Phone: [facility] Comment on above: pt reported 02-04-2024 13:06-0500 Body mass index (BMI) [Ratio] 50.13 kg/m2 Pac 2 Work Phone: [facility] 02-04-2024 13:06-0500 Body weight 128.37 kg [facility] 2 Work Phone: [facility] Comment on above: pt reported 11-15-2023 13:12-0400 Body height 160 cm Wendy Parish FENCE MAKER.MARINE EQUIPMENT PRESERVATION INSPECTOR Work Phone: [facility] 11-15-2023 13:12-0400 Body mass index (BMI) [Ratio] 51.02 kg/m2 Wendy Parish FENCE MAKER.MARINE EQUIPMENT PRESERVATION INSPECTOR Work Phone: [facility] 11-15-2023 13:12-0400 Body temperature 98.01 [degF] Wendy Parish FENCE MAKER.MARINE EQUIPMENT PRESERVATION INSPECTOR Work Phone: [facility] 11-15-2023 13:12-0400 Body weight 130.64 kg Wendy Parish FENCE MAKER.MARINE EQUIPMENT PRESERVATION INSPECTOR Work Phone: [facility] 11-15-2023 13:12-0400 Diastolic blood pressure 72 mm[Hg] Wendy Parish FENCE MAKER.MARINE EQUIPMENT PRESERVATION INSPECTOR Work Phone: [facility] 11-15-2023 13:12-0400 Heart rate 92 /min Wendy Parish FENCE MAKER.MARINE EQUIPMENT PRESERVATION INSPECTOR Work Phone: [facility] 11-15-2023 13:12-0400 Respiratory rate 16 /min Wendy Parish FENCE MAKER.MARINE EQUIPMENT PRESERVATION INSPECTOR Work Phone: [facility] 11-15-2023 13:12-0400 SaO2% (BldA) [Mass fraction] 98 % Wendy Parish FENCE MAKER.MARINE EQUIPMENT PRESERVATION INSPECTOR Work Phone: [facility] 11-15-2023 13:12-0400 Systolic blood pressure 112 mm[Hg] Wendy Parish FENCE MAKER.MARINE EQUIPMENT PRESERVATION INSPECTOR Work Phone: [facility] 08-24-2023 14:04-0400 Diastolic blood pressure 78 mm[Hg] Braulio Urrutia MD Work Phone: [facility] 08-24-2023 14:04-0400 Systolic blood pressure 122 mm[Hg] Braulio Urrutia MD Work Phone: [facility] 08-24-2023 13:41-0400 Body mass index (BMI) [Ratio] 49.95 kg/m2 Braulio Urrutia MD Work Phone: [facility] 08-24-2023 13:41-0400 Body weight 131.09 kg Braulio Urrutia MD Work Phone: [facility] 08-24-2023 13:41-0400 Heart rate 90 /min Braulio Urrutia MD Work Phone: [facility] 08-24-2023 13:41-0400 Respiratory rate 16 /min Braulio Urrutia MD Work Phone: [facility] 04-01-2023 12:51-0500 Body height 162 cm Sandra Andrew FENCE MAKER.MARINE EQUIPMENT PRESERVATION INSPECTOR Work Phone: [facility] 04-01-2023 12:51-0500 Body weight 130.18 kg Sandra Astor FENCE MAKER.MARINE EQUIPMENT PRESERVATION INSPECTOR Work Phone: [facility] 04-01-2023 12:51-0500 Diastolic blood pressure 80 mm[Hg] Sandra Andrew FENCE MAKER.MARINE EQUIPMENT PRESERVATION INSPECTOR Work Phone: [facility] 04-01-2023 12:51-0500 Respiratory rate 16 /min Sandra Andrew FENCE MAKER.MARINE EQUIPMENT PRESERVATION INSPECTOR Work Phone: [facility] 04-01-2023 12:51-0500 Systolic blood pressure 118 mm[Hg] Sandra Andrew FENCE MAKER.MARINE EQUIPMENT PRESERVATION INSPECTOR Work Phone: [facility] 10-22-2022 12:58-0400 Body temperature 98.91 [degF] Margaret Lomeli PA-C Work Phone: [facility] 10-22-2022 12:58-0400 Body weight 131.54 kg Margaret Lomeli PA-C Work Phone: [facility] 10-22-2022 12:58-0400 Diastolic blood pressure 82 mm[Hg] Margaret Lomeli PA-C Work Phone: [facility] 10-22-2022 12:58-0400 Heart rate 87 /min Margaret Lomeli PA-C Work Phone: [facility] 10-22-2022 12:58-0400 Respiratory rate 18 /min Margaret Lomeli PA-C Work Phone: [facility] 10-22-2022 12:58-0400 Systolic blood pressure 130 mm[Hg] Margaret Lomeli PA-C Work Phone: [facility] 08-05-2022 11:35-0400 Body temperature 97.9 [degF] Margaret Lomeli PA-C Work Phone: [facility] 08-05-2022 11:35-0400 Body weight 130.18 kg Margaret Lomeli PA-C Work Phone: [facility] 08-05-2022 11:35-0400 Diastolic blood pressure 82 mm[Hg] Margaret Lomeli PA-C Work Phone: [facility] 08-05-2022 11:35-0400 Heart rate 85 /min Margaretlivia Lomeli PA-C Work Phone: [facility] 08-05-2022 11:35-0400 Respiratory rate 18 /min Margaret Lomeli PA-C Work Phone: [facility] 08-05-2022 11:35-0400 Systolic blood pressure 110 mm[Hg] Margaret Lomeli PA-C Work Phone: [facility] 06-05-2022 07:28-0400 Body temperature 97.39 [degF] Margaret Lomeli PA-C Work Phone: [facility] 06-05-2022 07:28-0400 Body weight 133.81 kg Margaret Lomeli PA-C Work Phone: [facility] 06-05-2022 07:28-0400 Diastolic blood pressure 76 mm[Hg] Margaret Lomeli PA-C Work Phone: [facility] 06-05-2022 07:28-0400 Heart rate 88 /min Margaret Lomeli PA-C Work Phone: [facility] 06-05-2022 07:28-0400 Respiratory rate 18 /min Margaret Lomeli PA-C Work Phone: [facility] 06-05-2022 07:28-0400 Systolic blood pressure 106 mm[Hg] Margaret Lomeli PA-C Work Phone: [facility] 05-29-2022 12:48-0400 Body weight 134.72 kg Braulio Urrutia MD Work Phone: [facility] 05-29-2022 12:48-0400 Diastolic blood pressure 88 mm[Hg] Braulio Urrutia MD Work Phone: [facility] 05-29-2022 12:48-0400 Heart rate 80 /min Braulio Urrutia MD Work Phone: [facility] 05-29-2022 12:48-0400 Systolic blood pressure 132 mm[Hg] Braulio Urrutia MD Work Phone: [facility] 05-27-2022 12:31-0400 Diastolic blood pressure 62 mm[Hg] Pacc 1 Work Phone: [facility] 05-27-2022 12:31-0400 Systolic blood pressure 114 mm[Hg] Pacc 1 Work Phone: [facility] 05-27-2022 12:28-0400 Body weight 133.9 kg Pacc 1 Work Phone: [facility] 05-27-2022 12:28-0400 Heart rate 93 /min Pacc 1 Work Phone: [facility] 05-27-2022 12:28-0400 Respiratory rate 18 /min Pacc 1 Work Phone: [facility] 05-27-2022 12:28-0400 SaO2% (BldA) [Mass fraction] 94 % Pacc 1 Work Phone: [facility] 02-04-2022 10:48-0500 Body height 160 cm Braulio Urrutia MD Work Phone: [facility] 02-04-2022 10:48-0500 Body temperature 99.1 [degF] Braulio Urrutia MD Work Phone: [facility] 02-04-2022 10:48-0500 Body weight 132.54 kg Braulio Urrutia MD Work Phone: [facility] 02-04-2022 10:48-0500 Diastolic blood pressure 74 mm[Hg] Braulio Urrutia MD Work Phone: [facility] 02-04-2022 10:48-0500 Heart rate 95 /min Braulio Urrutia MD Work Phone: [facility] 02-04-2022 10:48-0500 Respiratory rate 16 /min Braulio Urrutia MD Work Phone: [facility] 02-04-2022 10:48-0500 SaO2% (BldA) [Mass fraction] 96 % Braulio Urrutia MD Work Phone: [facility] 02-04-2022 10:48-0500 Systolic blood pressure 122 mm[Hg] Braulio Urrutia MD Work Phone: [facility] Encounters Encounter Date Encounter Type Care Provider Facility Start: 02-14-2025 ambulatory Braulio Urrutia Facility :[facility] Start: 01-04-2025 ambulatory Braulio Ghada Facility :[facility] Start: 11-26-2024 Encounter for genera l adult medical examination without abnormal findings Braulio Urrutia [facility] Start: 11-20-2024 End: 11-20-[address] Braulio Urrutia MD Work Phone: [facility] Start: 11-20-2024 End: 11-20-[address] Brualio Urrutia MD -[facility] Work Phone: Start: 11-16-2024 End: 11-16-2024 ambulatory RUT GUTIERREZ Facility:[facility] Start: 11-07-2024 End: 11-09-2024 Telephone encounter Braulio Urrutia MD Work Phone: [facility] Comment on above: Clinical Update Start: 11-03-2024 ambulatory Braulio Urrutia Facility :[facility] Start: 10-31-2024 End: 10-31-2024 ambulatory Melissa To MA [facility] [place] Start: 10-31-2024 End: 10-31-2024 Patient encounter procedure Melissa To MA [facility] [place] Comment on above: Population Health Na vigation Outreach [facility] Start: 10-27-2024 End: 10-27-2024 Telephone encounter Braulio Urrutia MD Work Phone: [facility] Comment on above: Forms ([place]) Start: 10-21-2024 End: 10-23-2024 ambulatory Braulio Urrutia MD Work Phone: [facility] Comment on above: CPAP, NEW MACHINE Start: 08-11-2024 End: 08-11-2024 Chart abstracting Braulio Urrutia MD Work Phone: Neurology Comment on above: Outside Ortho Start: 08-10-2024 End: 08-10-[address] Braulio Urrutia MD Work Phone: [facility] Work Phone: Start: 08-10-2024 End: 08-10-[address] Jamaal Herrera MD -[facility] Work Phone: Comment on above: Essential hypertensi on with goal blood pressure less than 140/90 (Primary Dx); Insomnia, unspecified type; Gastroesophageal reflux disease without esophagitis; Allergic rhinitis, unspecified seasonality, unspecified trigger; Anxiety; Symptomatic menopausal or female climacteric states; Rheumatoid arthritis involving multiple sites with positive rheumatoid factor (HCC); Fatty liver; Medication management; Screening for diabetes mellitus; Encounter for lipid screening for cardiovascular disease Start: 08-10-2024 End: 08-10-2024 ambulatory JENNI STAHL Facility:[facility] Start: 08-02-2024 End: 08-02-2024 ambulatory BRAULIO URRUTIA Facility:[facility] Start: 08-01-2024 End: 08-02-2024 Follow-up encounter Braulio Urrutia MD Work Phone: [facility] Comment on above: Results Start: 07-31-2024 End: 07-31-2024 ambulatory BRAULIO URRUTIA Facility:[facility] Start: 07-25-2024 ambulatory Jamaal Herrera Facility:[facility] Start: 07-03-2024 End: 07-03-2024 Patient encounter procedure Jenni Stahl FENCE MAKER.MARINE EQUIPMENT PRESERVATION INSPECTOR Work Phone: [facility] Comment on above: Laceration of left i ndex finger without foreign body without damage to nail, initial encounter (Primary Dx) Start: 07-03-2024 End: 07-03-2024 ambulatory SELF Facility:[facility] Start: 06-27-2024 End: 06-27-2024 Emergency department patient visit DARRELL AGOSTO MD [facility] Start: 06-27-2024 End: 06-27-2024 Patient encounter procedure Yen Rahman APRN.MARINE EQUIPMENT PRESERVATION INSPECTOR Work Phone: [facility] Comment on above: Laceration of left i ndex finger, foreign body presence unspecified, nail damage status unspecified, initial encounter (Primary Dx) Start: 06-27-2024 End: 06-27-2024 ambulatory BRAULIO URRUTIA Facility:[facility] Start: 06-07-2024 End: 06-07-2024 Chart abstracting Sheridan Escobedo MA [facility] Comment on above: Results (Outside MRI ) Start: 06-06-2024 End: 06-06-2024 Patient encounter procedure Lacey HURD -[facility] Work Phone: Start: 06-06-2024 End: 06-06-2024 ambulatory Lacey Solo Facility:[facility] Start: 05-29-2024 End: 05-29-[address] Braulio Urrutia MD Work Phone: [facility] Work Phone: Start: 05-29-2024 End: 05-29-2024 Patient encounter procedure Lacey HURD -MRI - [facility] Work Phone: Start: 05-29-2024 End: 05-29-2024 ambulatory Lacey Solo Facility:[facility] Start: 05-26-2024 End: 05-26-2024 Chart abstracting Sheridan Escobedo MA [facility] Comment on above: Bone Density Start: 05-23-2024 End: 05-23-2024 ambulatory Braulio Urrutia MD Work Phone: [facility] Comment on above: Bone Density Test @ [facility] Start: 05-23-2024 End: 05-23-2024 Patient encounter procedure Lacey HURD -Outpatient Bone Densitometry Work Phone: Start: 05-23-2024 End: 05-23-2024 ambulatory Lacey Solo Facility:[facility] Start: 05-02-2024 End: 05-02-2024 Chart abstracting Braulio Urrutia MD Work Phone: [facility] Comment on above: Outside Ortho Start: 05-01-2024 End: 05-01-2024 Patient encounter procedure Lacey HURD -[facility] Work Phone: Start: 05-01-2024 End: 05-01-2024 ambulatory Lacey Solo Facility:[facility] Start: 04-03-2024 End: 04-03-2024 ambulatory BRAULIO URRUTIA Facility:[facility] Start: 04-03-2024 End: 04-03-2024 Subsequent hospital visit by physician Screen Mammo [facility] Mammogram Comment on above: Encounter for screen ing mammogram for breast cancer [Z12.31] Start: 03-28-2024 End: 03-28-2024 Chart abstracting Braulio Urrutia MD Work Phone: [facility] [place] Comment on above: Outside Pain Medicin e Start: 03-05-2024 End: 03-06-2024 Refill Braulio Urrutia MD Work Phone: [facility] [place] Comment on above: Refill Request Start: 02-25-2024 ambulatory DAVE Carrington ty:[facility] Start: 02-25-2024 End: 02-25-2024 Subsequent hospital visit by physician Lj Paz DO Work Phone: [facility] Endoscopy Comment on above: Family history of ma lignant neoplasm of gastrointestinal tract [Z80.0] Start: 02-09-2024 End: 02-09-2024 ambulatory BRAULIO URRUTIA Facility:[facility] Start: 02-09-2024 End: 02-09-2024 Patient encounter procedure Braulio Urrutia MD Work Phone: [facility] [place] Comment on above: Medicare annual well ness visit, subsequent (Primary Dx); Essential hypertension with goal blood pressure less than 140/90; Anxiety; Elevated fasting blood sugar; Gastroesophageal reflux disease without esophagitis; Rheumatoid arthritis involving multiple sites with positive rheumatoid factor (HCC); MARCELLE (obstructive sleep apnea); Overactive bladder; Insomnia, unspecified type; Fatty liver; Chronic pain syndrome; Advance directive discussed with patient; Screening for depression Start: 02-04-2024 End: 02-04-2024 Admission to [facility] 2 Work Phone: Pre Anesthesia Start: 02-04-2024 End: 02-04-2024 ambulatory LJ PAZ Facility:[facility] Start: 02-04-2024 End: 02-04-2024 Anesthesia consultation Pacc 2 Work Phone: Pre Anesthesia Comment on above: Pre-op evaluation (P rimary Dx); Overactive bladder; Rheumatoid arthritis involving multiple sites with positive rheumatoid factor (HCC); MARCELLE (obstructive sleep apnea); Essential hypertension with goal blood pressure less than 140/90 Start: 02-04-2024 End: 02-04-2024 Preprocedural examination done Pacc 2 Work Phone: [facility] Work Phone: Start: 02-02-2024 End: 02-02-2024 ambulatory BRAULIO URRUTIA Facility:[facility] Start: 02-01-2024 End: 02-02-2024 Telephone encounter Braulio Urrutia MD Work Phone: [facility] [place] Comment on above: Results Start: 02-01-2024 End: 02-01-2024 ambulatory BRAULIO URRUTIA Facility:[facility] Start: 01-31-2024 End: 01-31-2024 Orders Only Braulio Urrutia MD Work Phone: [facility] [place] Comment on above: Essential hypertensi on with goal blood pressure less than 140/90 (Primary Dx) Start: 11-15-2023 End: 11-15-2023 Patient encounter procedure Wendy Martinez APRN.MARINE EQUIPMENT PRESERVATION INSPECTOR Work Phone: General Surgery Comment on above: Family history of ma lignant neoplasm of gastrointestinal tract (Primary Dx); Encounter for screening for malignant neoplasm of colon; Screening for colon cancer Start: 10-14-2023 ambulatory Braulio regalado MD Work Phone: [facility] [place] Comment on above: Colorectal Cancer Sc reening Start: 09-23-2023 Telephone encounter Braulio Urrutia MD Work Phone: [facility] [place] Comment on above: Results (EMG) Start: 09-05-2023 ambulatory Braulio regalado MD Work Phone: [facility] [place] Comment on above: [facility] Start: 08-24-2023 End: 08-24-2023 Patient encounter procedure Braulio Urrutia MD Work Phone: [facility] Comment on above: Essential hypertensi on with goal blood pressure less than 140/90 (Primary Dx); Elevated fasting blood sugar; Gastroesophageal reflux disease without esophagitis; Anxiety; Severe obstructive sleep apnea; Insomnia, unspecified type; Morbid obesity (HCC); Numbness and tingling in both hands; Medication management Start: 08-23-2023 E-mail encounter fro m caregiver Sheridan Vahid [facility] [place] Start: 08-23-2023 Patient encounter procedure Sheridan Vahid [facility] [place] Comment on above: Appointment Start: 05-06-2023 Chart abstracting Braulio steiner MD Work Phone: [facility] Comment on above: outside pain managem ent Start: 04-02-2023 Telephone encounter Braulio Urrutia MD Work Phone: [facility] Comment on above: Results Start: 04-01-2023 End: 04-01-2023 Patient encounter procedure Sandra Solismaribell CHRISTIANSONMARINE EQUIPMENT PRESERVATION INSPECTOR Work Phone: OB/Gynecology Comment on above: Encounter for gyneco logical examination (general) (routine) without abnormal findings (Primary Dx); Encounter for screening mammogram for breast cancer Start: 04-01-2023 End: 04-01-2023 Patient encounter status Sandra Andrew STRONG.MARINE EQUIPMENT PRESERVATION INSPECTOR Work Phone: [facility] Start: 01-04-2023 End: 01-04-2023 ambulatory Vladislav Garcia PT Work Phone: [facility] Comment on above: Spinal stenosis of l umbar region with neurogenic claudication (Primary Dx); Morbid obesity (HCC); Lumbar radiculopathy Start: 12-28-2022 End: 12-28-2022 ambulatory Vladislav Garcia PT Work Phone: [facility] Comment on above: Spinal stenosis of l umbar region with neurogenic claudication (Primary Dx); Lumbar radiculopathy; Morbid obesity (HCC) Start: 12-19-2022 Refill Braulio regalado MD Work Phone: [facility] Comment on above: Refill Request Start: 12-15-2022 End: 12-15-2022 ambulatory Vladislav Garcia PT Work Phone: [facility] Comment on above: Spinal stenosis of l umbar region with neurogenic claudication (Primary Dx); Lumbar radiculopathy; Morbid obesity (HCC) Start: 12-03-2022 End: 12-03-2022 Subsequent hospital visit by physician Mri Radio [facility] (I-Stat/1.5t) Work Phone: Radiology Comment on above: Spinal stenosis of l umbar region with neurogenic claudication [M48.062] Start: 12-03-2022 Telephone encounter Margaret emmanuel PA-C Work Phone: [facility] Comment on above: Results Start: 11-03-2022 Telephone encounter Margaret emmanuel PA-C Work Phone: [facility] Comment on above: Results Start: 10-30-2022 End: 10-30-2022 ambulatory Emg 850) Neurology Comment on above: EMG Start: 10-30-2022 End: 10-30-2022 Patient encounter procedure Emg 2 Neur [facility] (Max Weight: 850) [facility] Start: 10-26-2022 Telephone encounter Margaret emmanuel PA-C Work Phone: [facility] Comment on above: Results Start: 10-22-2022 End: 10-22-2022 Subsequent hospital visit by physician Xr [facility] [place] Work Phone: Radiology Comment on above: Right leg pain [M79. 604] Start: 10-22-2022 End: 10-22-2022 Patient encounter procedure Margaret Lomeli PA-C Work Phone: [facility] Comment on above: Right leg pain (Prim pantera Dx); Chronic pain of right knee; Numbness and tingling Start: 08-17-2022 ambulatory Braulio regalado MD Work Phone: [facility] Comment on above: CPAP SUPPLIES Start: 08-05-2022 End: 08-05-2022 Patient encounter procedure Margaret Lomeli PA-C Work Phone: [facility] [place] Comment on above: Essential hypertensi on with goal blood pressure less than 140/90 (Primary Dx); Elevated fasting blood sugar; Rheumatoid arthritis involving multiple sites with positive rheumatoid factor (HCC); Severe obstructive sleep apnea; Obesity, Class III, BMI 40-49.9 (morbid obesity) (HCC); Osteoarthritis of multiple joints, unspecified osteoarthritis type; Anxiety; Medication management Start: 06-20-2022 Refill Braulio regalado MD Work Phone: [facility] [place] Comment on above: Refill Request Start: 06-17-2022 ambulatory Margaret valiente PA-C [facility] Phone[facility] Comment on above: Steriod Start: 06-10-2022 Telephone encounter Sheridan Escobedo MA [facility] [place] Comment on above: Results Start: 06-10-2022 ambulatory BRAULIO Carringtoni ty:[facility] Start: 06-10-2022 End: 06-10-2022 Preprocedural examination done Card [facility] Start: 06-10-2022 End: 06-10-2022 Subsequent hospital visit by physician Card Lab Nuclear Camera [facility] Comment on above: Pre-op examination [ Z01.818] Start: 06-05-2022 End: 06-05-2022 Patient encounter procedure Margaret Lomeli PA-C Work Phone: [facility] [place] Comment on above: Right sided sciatica (Primary Dx) Start: 05-29-2022 End: 05-29-2022 Patient encounter procedure Braulio Urrutia MD Work Phone: [facility] [place] Comment on above: Pre-op examination ( Primary Dx); Arthritis of left shoulder region; Essential hypertension with goal blood pressure less than 140/90; LBBB (left bundle branch block); Abnormal EKG Start: 05-29-2022 End: 05-29-2022 Preprocedural examination done Braulio Urrutia MD Work Phone: [facility] [place] Start: 05-27-2022 End: 05-28-2022 ambulatory BRAULIO URRUTIA Facility:[id number] Start: 05-27-2022 Encounter for other preprocedural examination BRAULIO [facility] Start: 05-27-2022 Encounter for preprocedural cardiovascular examination BRAULIO [facility] Start: 05-27-2022 End: 05-27-2022 Admission to [facility] [place] [id number] Work Phone: [facility] Start: 05-27-2022 End: 05-27-2022 ambulatory Pac 1 Work Phone: Pre Anesthesia Comment on above: Preop cardiovascular exam (Primary Dx); Postprocedural hypoinsulinemia ; Pre-op testing; Other general symptoms and signs ; Pain in other specified joint Start: 05-27-2022 End: 05-27-2022 Patient encounter status Pacc 1 Work Phone: Pre Anesthesia Start: 03-27-2022 Admission to [facility] Sheridan Escobedo MA [facility] [place] Comment on above: Surgery Clearance Ap pointment Start: 03-27-2022 Documentation procedure Mammog gisell Coordinator [facility] Start: 03-27-2022 E-mail encounter fro m caregiver Sheridan Escobedo MA [facility] [place] Start: 03-27-2022 Letter encounter Mammography Coordinator [facility] Department Start: 03-27-2022 End: 03-27-2022 Subsequent hospital visit by physician Screen Mammo [facility] Mammogram Comment on above: Encounter for screen ing mammogram for breast cancer [Z12.31] Start: 02-16-2022 End: 02-17-[address] YAMILKA MAHONEY DO Facility:[facility] Start: 02-14-2022 ambulatory Braulio regalado MD Work Phone: [facility] [place] Comment on above: Prescriptions Refill Request Start: 02-05-2022 ambulatory Braulio regalado MD Work Phone: [facility] [place] Comment on above: results Start: 02-05-2022 E-mail encounter fro m caregiver Braulio Urrutia MD Work Phone: [facility] [place] Start: 02-05-2022 Patient encounter procedure Braulio Urrutia MD Work Phone: [facility] Work Phone: Start: 02-05-2022 Telephone encounter Braulio Urrutia MD Work Phone: [facility] Comment on above: Results Start: 02-04-2022 End: 02-04-2022 Patient encounter procedure Braulio Urrutia MD Work Phone: [facility] Work Phone: Comment on above: Medicare annual well ness visit, subsequent (Primary Dx); Essential hypertension with goal blood pressure less than 140/90; Elevated fasting blood sugar; Gastroesophageal reflux disease without esophagitis; Rheumatoid arthritis involving multiple sites with positive rheumatoid factor ([facility]); Anxiety; Severe obstructive sleep apnea; Obesity, Class III, BMI 40-49.9 (morbid obesity) ([facility]); Insomnia, unspecified type; Overactive bladder; Osteoarthritis of multiple joints, unspecified osteoarthritis type; Living will on file at physician's office; Advance directive discussed with patient; Hyponatremia; Hyperkalemia Start: 01-16-2022 End: 01-16-2022 ambulatory [facility] Work Phone: Start: 01-16-2022 End: 01-16-2022 Patient encounter procedure [facility] - [facility] Start: 07-10-2021 End: 07-10-2021 Patient encounter procedure [facility]-Laboratory Start: 04-24-2020 End: 04-24-2020 Subsequent hospital visit by physician [facility] Work Phone: Radiology Start: 04-18-2019 End: 04-19-2019 Patient encounter procedure FRED Mcgregor [facility] Start: 04-10-2019 End: 04-11-2019 Patient encounter procedure BENJI Hand CNP [facility] Start: 11-04-2017 End: 04-01-2023 Patient encounter procedure Sheridan Escobedo MA [facility] Start: 10-11-2015 Patient encounter status Barbara Urrutia MD Work Phone: [facility] Work Phone: Procedures Date Procedure Procedure Detail Performing Clinician Start: 07-31-2024 Lipid 1996 panel - S maxime or Plasma Braulio Urrutia MD Work Phone: Start: 05-29-2024 MRI of lumbar spine Dr. Braulio Urrutia MD Work Phone: Start: 05-23-2024 Dual energy X-ray absorptiometry Dr. Braulio Urrutia MD Work Phone: Start: 05-01-2024 X-ray of lumbosacral spine Dr. Braulio Urrutia MD Work Phone: Start: 02-25-2024 Colonoscopy flx dx w /collj spec when pfrmd Wendy Martinez FENCE MAKER.MARINE EQUIPMENT PRESERVATION INSPECTOR Work Phone: Start: 02-25-2024 Colonoscopy Lj Gayla nur DO Work Phone: Start: 02-09-2024 Adult depression scr eening assessment Braulio Urrutia MD Work Phone: Start: 01-31-2024 Lipid 1995 panel - S maxime or Plasma Braulio Urrutia MD Work Phone: Start: 08-16-2023 Lipid 1996 panel - S maxime or Plasma Sheridan Escobedo MA Start: 02-09-2023 Lipid 1996 panel - S maxime or Plasma Sandra Espinoza FENCE MAKER.MARINE EQUIPMENT PRESERVATION INSPECTOR Work Phone: Start: 12-03-2022 Mri spinal canal lum bar w/o contrast material Margaret Lomeli PA-C Work Phone: Start: 10-30-2022 Nerve conduction sang dies 5-6 studies Margaret Lomeli PA-C Work Phone: Start: 10-22-2022 Radiologic exam knee complete 4/more views Margaret Lomeli PA-C Work Phone: Start: 08-05-2022 Lipid 1995 panel - S maxime or Plasma Margaret Lomeli PA-C Work Phone: Start: 06-10-2022 Tc99m tetrofosmin Barbara Urrutia MD Work Phone: Start: 05-27-2022 Thromboplastin time partial plasma/whole blood Yamilka Mahoney DO Work Phone: Start: 05-27-2022 Urnls dip stick/tabl et reagent auto microscopy Yamilka Mahoney DO Work Phone: Start: 05-27-2022 Ecg routine ecg w/le ast 12 lds i&r only Yamilka Mahoney DO Work Phone: Start: 03-27-2022 End: 03-27-2022 Mammography Sandracruz SolisAstor FENCE MAKER.C EMPLOYEE'S REPRESENTATIVE Work Phone: Start: 01-16-2022 MRI of joint of lowe r extremity Start: 03-25-2021 Mammography Braulio steiner MD Work Phone: Start: 04-24-2020 Radex hand minimum 3 views [facility] Provider Start: 12-05-2018 Colonoscopy Braulio steiner MD Work Phone: Plan of Treatment Date Care Activity Detail Author Start: 06-27-2034 Urine microalbumin profile DTaP,Tdap,Td Vaccine (2 - Td or Tdap) [facility] Start: 07-31-2029 Lipid panel Lipid Screening [facility] Start: 01-30-2029 Lipid panel Lipid Screening [facility] Start: 08-15-2028 Lipid panel Lipid Screening [facility] Start: 02-10-2028 Lipid panel Lipid Screening [facility] Start: 08-06-2027 Lipid 1996 panel - Serum or Plasma Lipid Screening [facility] Start: 08-06-2027 LIPID SCREEN LIPID SCREEN [facility] Start: 08-01-2027 Diabetes Screening Diabetes Screenin g [facility] Start: 02-01-2027 Diabetes Screening Diabetes Screenin g [facility] Start: 01-30-2027 Diabetes Screening Diabetes Screenin g [facility] Start: 01-28-2027 LIPID SCREEN LIPID SCREEN [facility] Start: 08-15-2026 Diabetes Screening Diabetes Screenin g [facility] Start: 02-09-2026 Diabetes Screening Diabetes Screenin g [facility] Start: 08-10-2025 Annual PCP Team Visual Arts Teacher bridgett Disease Visit Annual PCP Team Chronic Disease Visit [facility] Start: 08-05-2025 DIABETES SCREEN DIABETES SCREEN [facility] Start: 08-05-2025 Diabetes Screening Diabetes Screenin g [facility] Start: 07-03-2025 Annual PCP Team Visual Arts Teacher bridgett Disease Visit Annual PCP Team Chronic Disease Visit [facility] Start: 07-03-2025 BP Controlled (<130/80) BP Controlle d (<130/80) [facility] Start: 05-27-2025 DIABETES SCREEN DIABETES SCREEN [facility] Start: 04-03-2025 Screening for malign ant neoplasm of breast Mammogram Screening [facility] Start: 02-24-2025 Screening for malign ant neoplasm of colon [facility] Start: 02-14-2025 End: 02-14-2025 Patient encounter procedure 02/14/2025 1:00 PM EST Office Visit [facility] [place] [address] [place], [place] [id number] Braulio Urrutia MD [address] [place] [id number] medicare wellness [facility] Comment on above: medicare wellness Start: 02-09-2025 End: 05-11-2025 CBC W Auto Differential panel - Blood COMPLETE BLOOD COUNT AND DIFFERENTIAL Lab Routine Gastroesophageal reflux disease without esophagitis Expected: 02/09/2025, Expires: 05/11/2025 [facility] Comment on above: Expected: 02/09/2025 , Expires: 05/11/2025 Start: 02-09-2025 End: 05-11-2025 Cobalamin (Vitamin B12) [Mass/volume] in Serum or Plasma VITAMIN B12 Lab Routine Medication management Expected: 02/09/2025, Expires: 05/11/2025 [facility] Work Phone: Comment on above: Expected: 02/09/2025 , Expires: 05/11/2025 Start: 02-09-2025 End: 05-11-2025 Comprehensive metabolic 2000 panel - Serum or Plasma COMPREHENSIVE METABOLIC PANEL Lab Routine Essential hypertension with goal blood pressure less than 140/90 Fatty liver Expected: 02/09/2025, Expires: 05/11/2025 [facility] Comment on above: Expected: 02/09/2025 , Expires: 05/11/2025 Start: 02-09-2025 End: 05-11-2025 Hemoglobin A1c in Blood HEMOGLOBIN A1C Lab Routine Screening for diabetes mellitus Expected: 02/09/2025, Expires: 05/11/2025 [facility] Comment on above: Expected: 02/09/2025 , Expires: 05/11/2025 Start: 02-09-2025 End: 05-11-2025 LIPID PANEL, NONFASTING LIPID PANEL, NONFASTING Lab Routine Encounter for lipid screening for cardiovascular disease Expected: 02/09/2025, Expires: 05/11/2025 [facility] Comment on above: Expected: 02/09/2025 , Expires: 05/11/2025 Start: 02-09-2025 End: 05-11-2025 Magnesium [Mass/volume] in Serum or Plasma MAGNESIUM Lab Routine Medication management Expected: 02/09/2025, Expires: 05/11/2025 [facility] Comment on above: Expected: 02/09/2025 , Expires: 05/11/2025 Start: 02-09-2025 End: 05-11-2025 Thyrotropin [Units/volume] in Serum or Plasma THYROID STIMULATING HORMONE Lab Routine Medication management Expected: 02/09/2025, Expires: 05/11/2025 [facility] Comment on above: Expected: 02/09/2025 , Expires: 05/11/2025 Start: 02-09-2025 End: 05-11-2025 Urinalysis complete panel - Urine URINALYSIS, WITH MICROSCOPIC Lab Routine Essential hypertension with goal blood pressure less than 140/90 Expected: 02/09/2025, Expires: 05/11/2025 [facility] Comment on above: Expected: 02/09/2025 , Expires: 05/11/2025 Start: 02-08-2025 Annual PCP Team Visual Arts Teacher bridgett Disease Visit Annual PCP Team Chronic Disease Visit [facility] Start: 02-08-2025 BP Controlled (<130/80) BP Controlle d (<130/80) [facility] Start: 02-08-2025 Depression Screening Depression Scre ening [facility] Start: 02-08-2025 Medicare Annual Wellness Visit Medicare Annual Wellness Visit [facility] Start: 02-07-2025 End: 02-07-2025 Patient encounter procedure 02/07/2025 12:20 PM EST Office Visit [facility] [place] [address] [place] [address] Margaret Lomeli PA-C [address] [place], [place] [phone] medicare wellness [facility] [place] Comment on above: medicare wellness Start: 02-04-2025 DIABETES SCREEN DIABETES SCREEN [facility] Start: 01-24-2025 End: 01-24-2025 Patient encounter procedure 01/24/2025 2:20 PM EST Office Visit Family [facility] [address] [place] [address] Braulio Urrutia MD [address] [place], [place] [id number] Pre-Authorization for Surgery [facility] Comment on above: Pre-Authorization fo r Surgery Start: 11-16-2024 End: 11-16-2024 Patient encounter procedure 11/16/2024 11:00 AM EDT Office Visit Neurology [address] [place], [place] [address] Rut Gutierrez APRN.MARINE EQUIPMENT PRESERVATION INSPECTOR [address] [place] [address] MARCELLE (obstructive sleep apnea) [G47.33] Neurology Comment on above: MARCELLE (obstructive sle ep apnea) [G47.33] Start: 11-14-2024 BP Controlled (<130/80) BP Controlle d (<130/80) [facility] Start: 10-30-2024 Influenza vaccination C [facility] Start: 08-28-2024 Influenza vaccination Influenza Vacc ine (#1) [facility] Comment on above: Postponed from 10/30 (Declined at this time) Start: 08-23-2024 Annual PCP Team Visual Arts Teacher bridgett Disease Visit Annual PCP Team Chronic Disease Visit [facility] Start: 08-23-2024 BP Controlled (<130/80) BP Controlle d (<130/80) [facility] Start: 08-10-2024 End: 08-10-2024 Patient encounter procedure 08/10/2024 1:20 PM EDT Office Visit Family [facility] [address] [place] [address] Jenni Stahl APRN.MARINE EQUIPMENT PRESERVATION INSPECTOR [address] [place] [address] 6 month follow up [facility] [place] Comment on above: 6 month follow up Start: 08-01-2024 End: 10-31-2024 Potassium [Moles/volume] in Serum or Plasma POTASSIUM Lab Routine Hyperkalemia Expected: 08/01/2024, Expires: 10/31/2024 [facility] Work Phone: Comment on above: Expected: 08/01/2024 , Expires: 10/31/2024 Start: 08-01-2024 End: 10-31-2024 Sodium [Moles/volume] in Serum or Plasma SODIUM/NA Lab Routine Hyponatremia Expected: 08/01/2024, Expires: 10/31/2024 [facility] Comment on above: Expected: 08/01/2024 , Expires: 10/31/2024 Start: 07-28-2024 End: 10-27-2024 Basic metabolic 2000 panel - Serum or Plasma BASIC METABOLIC PANEL Lab Routine Essential hypertension with goal blood pressure less than 140/90 Expected: 07/28/2024, Expires: 10/27/2024 [facility] Comment on above: Expected: 07/28/2024 , Expires: 10/27/2024 Start: 07-28-2024 End: 10-27-2024 Hemoglobin A1c in Blood HEMOGLOBIN A1C Lab Routine Elevated fasting blood sugar Expected: 07/28/2024, Expires: 10/27/2024 [facility] Comment on above: Expected: 07/28/2024 , Expires: 10/27/2024 Start: 07-28-2024 End: 10-27-2024 LIPID PANEL, NONFASTING LIPID PANEL, NONFASTING Lab Routine Essential hypertension with goal blood pressure less than 140/90 Expected: 07/28/2024, Expires: 10/27/2024 [facility] Work Phone: Comment on above: Expected: 07/28/2024 , Expires: 10/27/2024 Start: 07-17-2024 End: 07-17-2024 Patient encounter procedure 07/17/2024 2:20 PM EDT Office Visit [facility] [place] [address] [place], [place] [phone] Jenni Stahl APRN.MARINE EQUIPMENT PRESERVATION INSPECTOR [address] [place], [place] [phone] Pre Op for 08/08/24 spinal fusion at [facility] [place] Comment on above: Pre Op for 08/08/24 s michelle fusion at [facility] Start: 05-29-2024 MR Lumbar spine [facility] Start: 05-29-2024 MRI of lumbar spine Spine Lumbar (Ro utine) [facility] Start: 04-03-2024 End: 04-03-2024 Patient encounter procedure 04/03/2024 12:50 PM EST Appointment Mammogram [address] [place], [place] [id number] MAMMO Mammogram Comment on above: MAMMO Start: 04-01-2024 Screening for malign ant neoplasm of breast Mammogram Screening [facility] Start: 03-01-2024 Advance Directive Discussion Advance Directive Discussion [facility] Start: 02-25-2024 End: 02-25-2024 Patient encounter procedure [facility] Endoscopy Comment on above: colon Start: 02-18-2024 Annual PCP Team Visual Arts Teacher bridgett Disease Visit Annual PCP Team Chronic Disease Visit [facility] Start: 02-18-2024 Covid-19 Vaccine (2022- season) Covid-19 Vaccine ( season) [facility] Comment on above: Postponed from 10/30 (Declined at this time) Start: 02-18-2024 RSV Vaccine (1 - 1-d ose 60+ series) RSV Vaccine (1 - 1-dose 60+ series) [facility] Comment on above: Postponed from 10/28 (Insurance Coverage) Start: 02-18-2024 RSV Vaccine (1 - Ris k 60-74 years 1-dose series) RSV Vaccine (1 - Risk 60-74 years 1-dose series) [facility] Comment on above: Postponed from 10/28 (Insurance Coverage) Start: 02-18-2024 Urine microalbumin profile DTaP,Tdap,Td Vaccine (1 - Tdap) [facility] Comment on above: Postponed from 01/05 (Insurance Coverage) Start: 02-11-2024 End: 05-12-2024 CBC W Auto Differential panel - Blood COMPLETE BLOOD COUNT AND DIFFERENTIAL Lab Routine Medication management Expected: 02/11/2024, Expires: 05/12/2024 [facility] Comment on above: Expected: 02/11/2024 , Expires: 05/12/2024 Start: 02-11-2024 End: 05-12-2024 Cobalamin (Vitamin B12) [Mass/volume] in Serum or Plasma VITAMIN B12 Lab Routine Gastroesophageal reflux disease without esophagitis Medication management Expected: 02/11/2024, Expires: 05/12/2024 [facility] Work Phone: Comment on above: Expected: 02/11/2024 , Expires: 05/12/2024 Start: 02-11-2024 End: 05-12-2024 Comprehensive metabolic 2000 panel - Serum or Plasma COMPREHENSIVE METABOLIC PANEL Lab Routine Essential hypertension with goal blood pressure less than 140/90 Elevated fasting blood sugar Expected: 02/11/2024, Expires: 05/12/2024 [facility] Comment on above: Expected: 02/11/2024 , Expires: 05/12/2024 Start: 02-11-2024 End: 05-12-2024 Hemoglobin A1c in Blood HEMOGLOBIN A1C Lab Routine Elevated fasting blood sugar Expected: 02/11/2024, Expires: 05/12/2024 [facility] Comment on above: Expected: 02/11/2024 , Expires: 05/12/2024 Start: 02-11-2024 End: 05-12-2024 LIPID PANEL, NONFASTING LIPID PANEL, NONFASTING Lab Routine Essential hypertension with goal blood pressure less than 140/90 Expected: 02/11/2024, Expires: 05/12/2024 [facility] Comment on above: Expected: 02/11/2024 , Expires: 05/12/2024 Start: 02-11-2024 End: 05-12-2024 Magnesium [Mass/volume] in Serum or Plasma MAGNESIUM Lab Routine Gastroesophageal reflux disease without esophagitis Medication management Expected: 02/11/2024, Expires: 05/12/2024 [facility] Comment on above: Expected: 02/11/2024 , Expires: 05/12/2024 Start: 02-11-2024 End: 05-12-2024 Thyrotropin [Units/volume] in Serum or Plasma THYROID STIMULATING HORMONE Lab Routine Anxiety Medication management Expected: 02/11/2024, Expires: 05/12/2024 [facility] Comment on above: Expected: 02/11/2024 , Expires: 05/12/2024 Start: 02-11-2024 End: 05-12-2024 Urinalysis complete panel - Urine URINALYSIS, WITH MICROSCOPIC Lab Routine Essential hypertension with goal blood pressure less than 140/90 Expected: 02/11/2024, Expires: 05/12/2024 [facility] Comment on above: Expected: 02/11/2024 , Expires: 05/12/2024 Start: 02-09-2024 End: 02-09-2024 Patient encounter procedure 02/09/2024 1:00 PM EST Office Visit [facility] [address] [place], [place] [phone] Braulio Urrutia MD [address] [place] [address] Medicare wellness [facility] Comment on above: Medicare wellness Start: 02-04-2024 End: 02-04-2024 Anesthesia consultation 02/04/2024 1:00 PM EST PAT Pre Anesthesia [address] [place] [address] VV: Pre Anesthesia Comment on above: VV: Start: 02-02-2024 End: 02-02-2024 ambulatory 02/02/2024 1:15 PM EST Results Only [facility] [address] [place], [place] [id number] [facility] Start: 02-01-2024 End: 05-02-2024 Basic metabolic 2000 panel - Serum or Plasma BASIC METABOLIC PANEL Lab Routine Hyponatremia Hyperkalemia Expected: 02/01/2024, Expires: 05/02/2024 [facility] Work Phone: Comment on above: Expected: 02/01/2024 , Expires: 05/02/2024 Start: 01-31-2024 End: 05-01-2024 Urinalysis complete panel - Urine URINALYSIS, WITH MICROSCOPIC Lab Routine Essential hypertension with goal blood pressure less than 140/90 Expected: 01/31/2024, Expires: 05/01/2024 [facility] Work Phone: Comment on above: Expected: 01/31/2024 , Expires: 05/01/2024 Start: 01-31-2024 End: 01-31-2024 Patient encounter procedure 01/31/2024 12:00 PM EST Appointment [facility] Endoscopy [address] [place] [address] Lj Paz, DO [address] [place] [address] colon [facility] Comment on above: colon Start: 12-10-2023 BP Controlled (<130/80) BP Controlle d (<130/80) [facility] Start: 12-06-2023 Colonoscopy COLONOSCOPY [facility] Start: 12-06-2023 COLORECTAL CANCER SCREENING COLORECTAL CANCER SCREENING [facility] Start: 12-06-2023 Screening for malign ant neoplasm of colon [facility] Start: 10-31-2023 Covid-19 Vaccine ( season) Covid-19 Vaccine ( season) [facility] Start: 10-31-2023 Covid-19 Vaccine ( season) Covid-19 Vaccine ( season) [facility] Start: 10-31-2023 Influenza vaccination [facility] Start: 10-23-2023 ANNUAL PCP TEAM PLAYGROUND SUPERVISOR BRIDGETT DISEASE VISIT ANNUAL PCP TEAM CHRONIC DISEASE VISIT [facility] Start: 08-29-2023 Influenza vaccination Influenza Vacc ine (#1) [facility] Comment on above: Postponed from 10/30 (Declined at this time) Start: 08-24-2023 End: 08-24-2023 Patient encounter procedure 08/24/2023 1:40 PM EDT Office Visit [facility] [address] [place] [address] Braulio Urrutia MD [address] [place] [address] 6 month follow up [facility] Comment on above: 6 month follow up Start: 08-06-2023 ANNUAL PCP TEAM PLAYGROUND SUPERVISOR BRIDGETT DISEASE VISIT ANNUAL PCP TEAM CHRONIC DISEASE VISIT [facility] Start: 06-06-2023 ANNUAL PCP TEAM PLAYGROUND SUPERVISOR BRIDGETT DISEASE VISIT ANNUAL PCP TEAM CHRONIC DISEASE VISIT [facility] Start: 06-06-2023 BP CONTROLLED (<130/80) BP CONTROLLE D (<130/80) [facility] Start: 05-30-2023 ANNUAL PCP TEAM PLAYGROUND SUPERVISOR BRIDGETT DISEASE VISIT ANNUAL PCP TEAM CHRONIC DISEASE VISIT [facility] Start: 05-28-2023 BP CONTROLLED (<130/80) BP CONTROLLE D (<130/80) [facility] Start: 03-27-2023 Mammography [facility] Start: 03-27-2023 Screening for malign ant neoplasm of breast Mammogram Screening [facility] Start: 03-01-2023 Advance Directive Discussion Advance Directive Discussion [facility] Start: 03-01-2023 Behavioral Health Screening Behavioral Health Screening [facility] Start: 03-01-2023 Depression Assessment Depression Ass essment [facility] Start: 02-04-2023 ANNUAL PCP TEAM PLAYGROUND SUPERVISOR BRIDGETT DISEASE VISIT ANNUAL PCP TEAM CHRONIC DISEASE VISIT [facility] Start: 02-04-2023 BP CONTROLLED (<130/80) BP CONTROLLE D (<130/80) [facility] Start: 02-04-2023 End: 04-06-2023 Cobalamin (Vitamin B12) [Mass/volume] in Serum or Plasma VITAMIN B12 BLOOD Lab Routine Medication management Expected: 02/04/2023, Expires: 04/06/2023 [facility] Work Phone: Comment on above: Expected: 02/04/2023 , Expires: 04/06/2023 Start: 02-04-2023 End: 04-06-2023 Comprehensive metabolic 2000 panel - Serum or Plasma COMP METABOLIC PANEL Lab Routine Essential hypertension with goal blood pressure less than 140/90 Expected: 02/04/2023, Expires: 04/06/2023 [facility] Work Phone: Comment on above: Expected: 02/04/2023 , Expires: 04/06/2023 Start: 02-04-2023 COVID-19 VACCINE (4 - Booster for Pfizer series) COVID-19 VACCINE (4 - Booster for Pfizer series) [facility] Comment on above: Postponed from 03/27 (Declined at this time) Start: 02-04-2023 COVID-19 VACCINE (4 - Pfizer series) COVID-19 VACCINE (4 - Pfizer series) [facility] Comment on above: Postponed from 03/27 (Declined at this time) Start: 02-04-2023 End: 04-06-2023 Hemoglobin A1c in Blood HGB A1C Lab Routine Elevated fasting blood sugar Expected: 02/04/2023, Expires: 04/06/2023 [facility] Work Phone: Comment on above: Expected: 02/04/2023 , Expires: 04/06/2023 Start: 02-04-2023 End: 04-06-2023 LIPID PANEL, NONFASTING LIPID PANEL, NONFASTING Lab Routine Essential hypertension with goal blood pressure less than 140/90 Elevated fasting blood sugar Expected: 02/04/2023, Expires: 04/06/2023 [facility] Work Phone: Comment on above: Expected: 02/04/2023 , Expires: 04/06/2023 Start: 02-04-2023 End: 04-06-2023 Magnesium [Mass/volume] in Serum or Plasma MAGNESIUM BLD Lab Routine Medication management Expected: 02/04/2023, Expires: 04/06/2023 [facility] Work Phone: Comment on above: Expected: 02/04/2023 , Expires: 04/06/2023 Start: 02-04-2023 End: 04-06-2023 Urinalysis complete panel - Urine URINALYSIS, WITH MICROSCOPIC Lab Routine Essential hypertension with goal blood pressure less than 140/90 Elevated fasting blood sugar Expected: 02/04/2023, Expires: 04/06/2023 [facility] Work Phone: Comment on above: Expected: 02/04/2023 , Expires: 04/06/2023 Start: 02-04-2023 Urine microalbumin profile [facility] Comment on above: Postponed from 01/05 (Insurance Coverage) Start: 10-30-2022 Covid-19 Vaccine () Covid-19 Vaccine () [facility] Start: 10-30-2022 Influenza vaccination C [facility] Start: 07-24-2022 End: 09-23-2022 Basic metabolic 2000 panel - Serum or Plasma BASIC METABOLIC PNL Lab Routine Essential hypertension with goal blood pressure less than 140/90 Elevated fasting blood sugar Hyponatremia Hyperkalemia Expected: 07/24/2022, Expires: 09/23/2022 [facility] Work Phone: Comment on above: Expected: 07/24/2022 , Expires: 09/23/2022 Start: 07-24-2022 End: 09-23-2022 Hemoglobin A1c in Blood HGB A1C Lab Routine Elevated fasting blood sugar Expected: 07/24/2022, Expires: 09/23/2022 [facility] Work Phone: Comment on above: Expected: 07/24/2022 , Expires: 09/23/2022 Start: 07-24-2022 End: 09-23-2022 LIPID PANEL, NONFASTING LIPID PANEL, NONFASTING Lab Routine Essential hypertension with goal blood pressure less than 140/90 Expected: 07/24/2022, Expires: 09/23/2022 [facility] Work Phone: Comment on above: Expected: 07/24/2022 , Expires: 09/23/2022 Start: 05-26-2022 End: 07-26-2022 Bacteria identified in Urine by Culture URINE CULTURE Microbiology Routine Pre-op testing Other general symptoms and signs Expected: 05/26/2022, Expires: 07/26/2022 [facility] Work Phone: Comment on above: Expected: 05/26/2022 , Expires: 07/26/2022 Start: 03-25-2022 Mammography MAMMOGRAM [facility] Start: 03-01-2022 ADVANCE DIRECTIVE DISCUSSION ADVANCE DIRECTIVE DISCUSSION [facility] Start: 03-01-2022 DEPRESSION ASSESSMENT DEPRESSION ASS ESSMENT [facility] Start: 11-09-2020 BP CONTROLLED (<130/80) BP CONTROLLE D (<130/80) [facility] Start: 01-05-2015 Urine microalbumin profile DTaP,Tdap,Td Vaccine (1 - Tdap) [facility] Start: 2012 RSV Vaccine (1 - 1-d ose 60+ series) RSV Vaccine (1 - 1-dose 60+ series) [facility] Start: 2012 RSV Vaccine (1 - Ris k 60-74 years 1-dose series) RSV Vaccine (1 - Risk 60-74 years 1-dose series) [facility] Start: 07-27-2009 FECAL OCCULT BLOOD FECAL OCCULT BLOO D [facility] Start: 07-27-2009 Screening for malign ant neoplasm of colon Fecal Occult Blood [facility] Start: 1997 COLOGUARD (FIT-DNA) COLOGUARD (FIT-D NA) [facility] Start: [address] [facility] Start: 1997 Screening for malign ant neoplasm of colon [facility] Start: 1997 SIGMOIDOSCOPY SIGMOIDOSCOPY [facility] Start: 1970 Depression Screening Depression Scre ening [facility] Bacteria identified in Urine by Culture URINE CULTURE Microbiology Routine Pre-op testing Other general symptoms and signs 05/27/2022 12:07 PM EDT [facility] Work Phone: End: 10-23-2023 EMG(NEURO/NI) EMG(NEURO/NI) EMG Routine Right leg pain Chronic pain of right knee Numbness and tingling 1 Occurrences starting 10/22/2022 until 10/23/2023 [facility] Work Phone: Comment on above: 1 Occurrences starti ng 10/22/2022 until 10/23/2023 End: 04-30-2024 ELISE SCREENING ELISE SCREENING Radiology Routine Encounter for screening mammogram for breast cancer 1 Occurrences starting 04/01/2023 until 04/30/2024 [facility] Work Phone: Comment on above: 1 Occurrences starti ng 04/01/2023 until 04/30/2024 MG Breast Screening ELISE SCREENIN G Radiology Routine Encounter for screening mammogram for breast cancer 04/03/2024 1:11 PM EST [facility] Work Phone: MR Lumbar spine [facility] End: 12-03-2023 Mri spinal canal lumbar w/o contrast material MRI LUMBAR SPINE WO [facility] Radiology Routine Spinal stenosis of lumbar region with neurogenic claudication 1 Occurrences starting 11/03/2022 until 12/03/2023 [facility] Work Phone: Comment on above: 1 Occurrences starti ng 11/03/2022 until 12/03/2023 NM CARDIAC PERF STRESS/PHARM NM CARDIAC PERF STRESS/PHARM Radiology STAT Pre-op examination LBBB (left bundle branch block) Abnormal EKG Ordered: 05/29/2022 [facility] Work Phone: Comment on above: Ordered: 05/29/2022 Patient referral [facility] Work Phone: Potassium [Moles/volume] in Serum or Plasma POTASSIUM Lab Routine Hyperkalemia 08/02/2024 2:17 PM EDT [facility] End: 11-14-2024 Screening colonoscopy COLONOSCOPY SCREENING Endoscopy Routine Family history of malignant neoplasm of gastrointestinal tract Encounter for screening for malignant neoplasm of colon 1 Occurrences starting 11/15/2023 until 11/14/2024 [facility] Work Phone: Comment on above: 1 Occurrences starti ng 11/15/2023 until 11/14/2024 Sodium [Moles/volume ] in Serum or Plasma SODIUM/NA Lab Routine Hyponatremia 08/02/2024 2:17 PM EDT [facility] End: 11-21-2023 XR KNEE GENERAL 4V AP BOTH/PA BOTH/LAT/MERC RIGHT XR KNEE GENERAL 4V AP BOTH/PA BOTH/LAT/MERC RIGHT Radiology Routine Right leg pain Chronic pain of right knee Numbness and tingling 1 Occurrences starting 10/22/2022 until 11/21/2023 [facility] Work Phone: Comment on above: 1 Occurrences starti ng 10/22/2022 until 11/21/2023 XR KNEE GENERAL 4V A P BOTH/PA BOTH/LAT/MERC RIGHT XR KNEE GENERAL 4V AP BOTH/PA BOTH/LAT/MERC RIGHT Radiology Routine Right leg pain Chronic pain of right knee Numbness and tingling 10/22/2022 1:50 PM EDT [facility] Work Phone: [facility] Immunizations Immunization Date Immunization Notes Care Provider Fa [facility] 06-27-2024 tetanus toxoid, redu claudio diphtheria toxoid, and acellular pertussis vaccine, adsorbed DARRELL AGOSTO MD [facility] 12-08-2021 influenza, high dose seasonal, preservative-free Braulio Urrutia MD Work Phone: [facility] 12-08-2021 influenza virus vacc ine, unspecified formulation Margaret Lomeli PA-C Work Phone: [facility] 01-30-2021 SARS-CoV-2 mRNA (tozinameran) vaccine DARRELL AGOSTO MD [facility] 01-14-2021 zoster vaccine recombinant Braulio Urrutia MD Work Phone: [facility] 12-20-2020 influenza virus vacc ine, unspecified formulation DARRELL AGOSTO MD [facility] 12-20-2020 influenza, high dose seasonal, preservative-free Braulio Urrutia MD Work Phone: [facility] 12-20-2020 influenza, injectabl e, quadrivalent, contains preservative Braulio Urrutia MD Work Phone: [facility] Work Phone: 05-31-2020 Covid (Pfizer) [facility] 05-10-2020 Covid (Pfizer) [facility] Comment on above: Result Comment: 2024: [id number] 12-19-2019 influenza virus vacc ine, unspecified formulation Braulio Urrutia MD Work Phone: [facility] 11-10-2019 pneumococcal polysaccharide vaccine, 23 valent Braulio Urrutia MD Work Phone: [facility] 02-02-2019 influenza virus vacc ine, unspecified formulation DARRELL AGOSTO MD [facility] 02-02-2019 influenza, high dose seasonal, preservative-free Braulio Urrutia MD Work Phone: [facility] 11-17-2018 zoster vaccine recombinant Braulio Urrutia MD Work Phone: [facility] 11-07-2018 zoster vaccine recombinant Braulio Urrutia MD Work Phone: [facility] 11-04-2018 pneumococcal conjuga te vaccine, 13 valent Braulio Urrutia MD Work Phone: [facility] 01-18-2018 influenza virus vacc ine, unspecified formulation DARRELL AGOSTO MD [facility] 01-18-2018 influenza, high dose seasonal, preservative-free Braulio Urrutia MD Work Phone: [facility] 01-01-2017 influenza, injectabl e, quadrivalent, preservative free Braulio Urrutia MD Work Phone: [facility] 01-21-2016 influenza, seasonal, injectable, preservative free Braulio Urrutia MD Work Phone: [facility] 01-04-2015 influenza, seasonal, injectable, preservative free Braulio Urrutia MD Work Phone: [facility] 01-04-2015 TD(adult) unspecifie d formulation Braulio Urrutia MD Work Phone: [facility] 01-04-2015 tetanus and diphther ia toxoids, adsorbed, preservative free, for adult use (2 Lf of tetanus toxoid and 2 Lf of diphtheria toxoid) Braulio Urrutia MD Work Phone: [facility] 01-04-2015 tetanus toxoid, redu claudio diphtheria toxoid, and acellular pertussis vaccine, adsorbed DARRELL AGOSTO MD [facility] 11-14-2014 pneumococcal polysaccharide vaccine, 23 valent Braulio Urrutia MD Work Phone: [facility] 04-23-2014 zoster vaccine, live Braulio Urrutia MD Work Phone: [facility] 01-30-2014 influenza, seasonal, injectable, preservative free Braulio Urrutia MD Work Phone: [facility] 12-08-2012 influenza nasal, unspecified formulation Braulio Urrutia MD Work Phone: [facility] 12-18-2011 influenza nasal, unspecified formulation Braulio Urrutia MD Work Phone: [facility] 11-24-2010 influenza nasal, unspecified formulation Braulio Urrutia MD Work Phone: [facility] 12-19-2009 influenza virus vacc ine, unspecified formulation Braulio Urrutia MD Work Phone: [facility] Work Phone: Payers Date Payer Category Payer Self-pay [id number] 2016 Medicare [id number] 1995 Government (not [facility] care or Medicaid) [facility] [id number] 1995 Unknown [id number] 1959 Medicare [id number] 1959 Unknown [id number] 1952 Unknown [id number] [id number] 1952 Unknown [id number]. [id number] 1952 Unknown [id number]. [id number] 1952 Unknown [id number]. [id number] Unknown [id number] [id number] Unknown [id number] [id number] Unknown [id number]. [id number] Unknown [id number] [id number] Unknown [id number] [id number] Unknown [id number] [id number] Unknown [id number] [id number] Unknown [id number]. [id number] Unknown [id number] [id number] Unknown [id number] [id number] Unknown [id number] [id number] Social History Date Type Detail Facility Start: 05-06-2019 End: 05-06-2019 Tobacco smoking status IDIS Unknown if ever smoked [facility] Work Phone: Start: 1950 Sex Assigned At Female [facility] Start: 02-04-2022 End: 10-31-2024 Tobacco smoking status NHIS Never smoked tobacco [facility] Start: 04-29-2017 End: 02-04-2022 Tobacco use and exposure Smokeless tobacco non-user [facility] Start: 11-21-2019 End: 02-04-2022 Alcohol intake Current drinker of alcohol (finding) [facility] Start: 07-22-2021 End: 01-28-2022 History SDOH Alcohol Frequency 2 [facility] Start: 01-28-2022 History SDOH Alcohol Std Drinks 1 [facility] Start: 01-28-2022 History SDOH Social Connections Phone 4 [facility] Start: 01-28-2022 History SDOH Physica l Activity DPW 0 [facility] Start: 01-28-2022 History SDOH Financial 5 [facility] Start: 11-21-2019 Education 13 [facility] Start: 11-12-2017 Alcohol Comment Rarely [facility] Start: 01-28-2022 End: 08-05-2022 History of Social function [facility] Start: 01-28-2022 End: 08-05-2022 Social connection and isolation panel [facility] Do you belong to any clubs or organizations such as orthodoxy groups, unions, fraternal or athletic groups, or school groups? No [facility] Are you now , , , , never or living with a partner? [facility] How often to you hav e a drink containing alcohol? Monthly or less [facility] How many standard dr inks containing alcohol do you have on a typical day? 1 or 2 [facility] How often do you hav e 6 or more drinks on 1 occasion? Never [facility] Start: 01-31-2012 How hard is it for y ou to pay for the very basics like food, housing, medical care, and heating Not hard at all [facility] Do you feel stress - tense, restless, nervous, or anxious, or unable to sleep at night because your mind is troubled all the time - these days [OSQ] Only a little [facility] (I/We) worried bina er (my/our) food would run out before (I/we) got money to buy more. Never true [facility] Start: 11-19-2019 Gender identity Identifies as female gender (finding) [facility] Do you feel stress - tense, restless, nervous, or anxious, or unable to sleep at night because your mind is troubled all the time - these days [OSQ] To some extent [facility] Start: 11-15-2023 End: 05-26-2024 Alcoholic beverage intake Ex-drinker (finding) [facility] Start: 03-25-2020 End: 04-24-2020 Exposure to SARS-CoV-2 (event) Not sure [facility] Start: 05-27-2024 End: 06-01-2024 Sex Female (finding) [facility] Functional Status Date Assessment Result Facility 06-27-2024 Functional Status ID band on, Allergy Band on, Call device within reach, Bed in low position, Wheels locked [facility] 07-18-2014 Are you deaf, or do you have serious difficulty hearing No 07/18/2014 8:01 AM EDT Kiki Mascorro LPN [facility] Work Phone: 07-18-2014 Are you blind, or do you have serious difficulty seeing, even when wearing glasses No 07/18/2014 8:01 AM EDT Kiki Mascorro LPN [facility] 07-18-2014 Do you have serious difficulty walking or climbing stairs No 07/18/2014 8:01 AM EDT Kiki Mascorro LPN [facility] 07-18-2014 Do you have difficul ty dressing or bathing No 07/18/2014 8:01 AM EDT Kiki Mascorro LPN [facility] 07-18-2014 Because of a physica l, mental, or emotional condition, do you have difficulty doing errands alone such as visiting a physician's office or shopping No 07/18/2014 8:01 AM EDT Kiki Mascorro LPN [facility] Mental Status Date Assessment Result Facility 06-27-2024 Mental Status Oriented x 4 [facility] 07-18-2014 Because of a physica l, mental, or emotional condition, do you have serious difficulty concentrating, remembering, or making decisions No 07/18/2014 8:01 AM EDT Kiki Mascorro DISHA No [facility] Clinical Notes 04-21-2016 to 11-16-2024 Telephone Encounter - Aiyana Loco MA - 11/09/2024 11:13 AM EDTTelephone Encounter - Aiyana Loco MA - 11/09/2024 11:13 AM EDTTelephone Encounter - Kathy Rowell MA - 11/08/2024 8:31 AM EDT Note Date & Type Note Facility 11-16-2024 Note HNO ID: [id number] Author: RUT GUTIERREZ APRN.MARINE EQUIPMENT PRESERVATION INSPECTOR Service: ? Author Type: Nurse Practitioner Type: Progress Notes Filed: 11/21/2024 09:33 Note Text: [facility] New Patient Evaluation PATIENT NAME: Nia Kiran DATE OF SERVICE: November 16, 2024 Recording using ambient [employer] software for draft documentation of the visit was discussed with the patient/authorized school admissions representative; all questions welcomed and answered. Patient/authorized school admissions representative agreed to proceed CONSULTING PROVIDER: Braulio Urrutia [address] [place] [id number] REASON FOR CONSULT: Braulio Urrutia sends the patient for an opinion about MARCELLE. My findings and recommendations will be transmitted electronically via shared medical record to the consulting provider. HPI: The patient is a 74-year-old female with a history of MARCELLE, presenting for issues with her new CPAP machine. The patient was diagnosed with MARCELLE in 2018 following a sleep study at [facility]. She has been using a CPAP machine since then, with settings of 9-20 cm H2O, and has been compliant with its use. Two to three weeks ago, she received a message on her CPAP machine stating, Your motor life has exceeded, you need to contact your provider. She contacted [facility], who instructed her to have her doctor send an order. Dr. Urrutia sent the necessary documentation, and [facility] provided her with a new CPAP machine. The new machine has a fixed pressure setting of 18 cm H2O, which the patient finds intolerable, describing it as blasting her face. She used the new machine for two nights but was unable to sleep due to the high pressure and lack of ramp time. She now has a 45 min ramp but still can't tolerate the pressure of 18. She requests that the new machine be adjusted to the same settings as her old one (9-20 cm H2O). The patient uses a SleepWeaver Advanced soft cloth nasal CPAP mask due to facial sensitivity from a previous injury that left her unable to tolerate plastic or silicone masks. She reports no issues with her current mask and has been a faithful user of her CPAP machine, stating she can't sleep without it. Her sleep schedule typically involves going to bed around 5150-0948 and waking up around 4404-7624. She denies excessive daytime sleepiness, drowsy driving, restless legs, sleep paralysis, morning headaches, nocturnal heartburn, or palpitations. She does not take naps during the day and reports good sleep quality when using her CPAP machine. She has a history of spinal stenosis but denies any symptoms of restless leg syndrome. The patient has a family history of MARCELLE, with her oldest daughter, aged 53, also diagnosed with the condition.grandchildren. Patient Questionnaires Sleep Scores 11/10/2024 Sleep Questions Reason for visit: Sleep apnea On average, hours of sleep in 24 hours: 7 Average hours of CPAP per night: 7 Percent of nights CPAP used at least 4 hours: 100 Accidents or near accidents due to drowsy drivin 11/10/2024 [place] Sleepiness Scale Score 2 (No clinically significant daytime sleepiness) 11/10/2024 PROMIS CAT Sleep Disturbance PROMIS Sleep Disturbance T-Score 52 (within normal limits) PROMIS Sleep Disturbance Percentile 42 11/10/2024 PHQ-9 Score 0 11/10/2024 PROMIS Global Health - (T-Scores - the mean of general population = 50. Five points is a clinically meaningful difference.) Physical T-Score 42.3 Mental T-Score 48.3 PAST TREATMENTS: DME [employer] [facility] PRIOR SLEEP STUDIES: 05/18/17 PSG at [facility]: AHI 33.6, O2<=88% for 43 minutes PAST MEDICAL HISTORY Diagnosis Date Acute pain of right shoulder 08/21/2022 Seeing [facility] 07/2022 Advance directive discussed with patient 02/04/2022 Discussed 01/2022: up to date Allergic rhinitis 08/31/2013 Anxiety Chronic pain syndrome 05/06/202304/2023 seeing Pain management, Dr. Atul Shaffer wart 01/21/2009 Constipation COPD (chronic obstructive pulmonary disease) (HCC) well controlled-managed by PCP Elevated fasting blood sugar 2016 Essential hypertension with goal blood pressure less than 140/90 06/27/2015 well controlled-managed by PCP Family history of malignant neoplasm of gastrointestinal tract Fatty liver Gastroesophageal reflux disease without esophagitis 06/04/2015 Hallux valgus (acquired) 04/12/2008 Hemorrhage of gastrointestinal tract, unspecified Hiatal hernia sliding History of knee replacement, total both Hyponatremia 01/31/2021 Related to Hctz Insomnia 06/04/2015 LBBB (left bundle branch block) 05/29/2022 Living will on file at physician's office 02/04/2022 DPA: Alessandra (daughter) Medicare annual wellness visit, initial 11/04/2017 Medicare Part B: 09/29/2017 last done: 11/10/2019 Medicare annual wellness visit, subsequent 11/04/2017 Medicare Part B: 09/29/2017 last done: 02/04/2022 Muscle spasm 12/14/2017 (more content not included)... [facility] 11-09-2024 Telephone encounter Note Pt scheduled with Sleep Med on 12/07/24. Aiyana Loco MA [facility] 11-09-2024 Miscellaneous Notes Pt scheduled with Sleep Med on 12/07/24. Aiyana Loco MA Pt notified and transferred to PSS to set up consult with sleep med. Ceci with [facility] notified of this as well. Kathy Rowell MA Let [facility] kurtis patient know I have placed a consult to sleep med to help facilitate the management of her CPAP needs. Ceci Meredith from [facility] stopped in the office with information regarding patient and recent sleep study completed. Patient's baseline sleep study was done with the 3% testing rule and now Medicare requires it to be done with the 4% testing rule. Asking if we can get this pt scheduled for a Home Sleep Test. [facility] has a [facility] Home sleep study? Can call Ceci with any questions at [phone]. We can fax results to [phone]. Placed note on desk received in office from [facility]. Aiyana Loco MA documented in this encounter [facility] 11-08-2024 Telephone encounter Note Pt notified and transferred to PSS to set up consult with sleep med. Ceci with [facility] notified of this as well. Kathy Rowell MA [facility] 11-07-2024 Telephone encounter Note Let [facility] kurtis patient know I have placed a consult to sleep med to help facilitate the management of her CPAP needs. [facility] 11-07-2024 Telephone encounter Note Ceci Meredith from [facility] stopped in the office with information regarding patient and recent sleep study completed. Patient's baseline sleep study was done with the 3% testing rule and now Medicare requires it to be done with the 4% testing rule. Asking if we can get this pt scheduled for a Home Sleep Test. [facility] has a [facility] sleep study? Can call Ceci with any questions at [phone]. We can fax results to [phone]. Placed note on desk [facility] from [facility]. Aiyana Loco MA [facility] 10-31-2024 Note HNO ID: [id number] Author: MELISSA TO MA Service: ? Author Type: Sourcing Associate Type: Progress Notes Filed: 10/31/2024 13:45 Note Text: POPULATION HEALTH NAVIGATION OUTREACH Action/FYI UPDATED APPOINTMENT NOTE HCC CLOSURE Topic Due (Y or N) Comments Medicare Wellness PCP Follow up Colorectal Cancer Screening Controlling Blood Pressure A1C HCC Y Flu Vaccine Care Everywhere Reviewed MyChart Activation Updated Appointment Note Reason for Outreach Care Gap/HCC or Scheduling Wellness Visits Care Gaps due: N/A Patient Contacted: Unable or unnecessary to reach patient: HCC related Patient already scheduled Updated appointment notes Navigation Signature: Melissa To MA October 31, 2024 1:43 PM [facility] 10-31-2024 History of Present illness Narrative POPULATION HEALTH NAVIGATION OUTREACH Action/FYI UPDATED APPOINTMENT NOTE HCC CLOSURE Topic Due (Y or N) Comments Medicare Wellness PCP Follow up Colorectal Cancer Screening Controlling Blood Pressure A1C HCC Y Flu Vaccine Care Everywhere Reviewed MyChart Activation Updated Appointment Note Reason for Outreach Care Gap/HCC or Scheduling Wellness Visits Care Gaps due: N/A Patient Contacted: Unable or unnecessary to reach patient: HCC related Patient already scheduled Updated appointment notes Navigation Signature: Melissa To MA October 31, 2024 1:43 PM documented in this encounter [facility] 10-31-2024 Note Patient Outreach (NE TNAV) NIA KIRAN ([id number]) 1950 F Date Time Provider Department 10/31/24 MELISSA TO NETNAV During your visit today, we recorded the following information about you: Melissa To MA 10/31/2024 1:45 PM Signed POPULATION HEALTH NAVIGATION OUTREACH Action/FYI UPDATED APPOINTMENT NOTE HCC CLOSURE Topic Due (Y or N) Comments Medicare Wellness PCP Follow up Colorectal Cancer Screening Controlling Blood Pressure A1C HCC Y Flu Vaccine Care Everywhere Reviewed MyChart Activation Updated Appointment Note Reason for Outreach Care Gap/HCC or Scheduling Wellness Visits Care Gaps due: N/A Patient Contacted: Unable or unnecessary to reach patient: HCC related Patient already scheduled Updated appointment notes Navigation Signature: Melissa To MA October 31, 2024 1:43 PM Allergies As of Date: 10/31/2024 Noted Allergy Reaction MORPHINE 11/15/2018 2 - Rash Comments: And delusions DEMEROL (MEPERIDINE (PF)) 06/19/2008 9 - Itching DILAUDID (HYDROMORPHONE (BULK)) 07/01/2009 9 - Itching PERCOCET (OXYCODONE-ACETAMINOPHEN)07/23/19 06 16 - Unknown POISON MICHELLE 12/26/2012 7 - Swelling 9 - Itching 14 - Other: See Comments Comments: nausea VICODIN (HYDROCODONE-ACETAMINOPHE* 005 16 - Unknown Date Reviewed: 08/10/2024 Reviewed by: Joy Rodrigez MA - Fully Assessed Reason for Visit: Population Health Navigation Outreach [3910] Cmt: NESHA PRICE PCSA Prescriptions as of 10/31/2024 - zolpidem (AMBIEN) 10 mg Take 1 tablet by mouth at bedtime as needed for up to 180 days. For Insomnia. - spironolactone (ALDACTONE) 25 mg tablet Take 1 tablet by mouth once daily. - omeprazole (PRILOSEC) 40 mg capsule Take 1 capsule by mouth once daily. - montelukast (SINGULAIR) 10 mg tablet Take 1 tablet by mouth daily at bedtime. - lisinopril (ZESTRIL) 10 mg tablet Take 1 tablet by mouth once daily. - hydrOXYchloroQUINE (PLAQUENIL) 200 mg tablet Take 1 tablet by mouth two times a day. Per rheumatology - FLUoxetine (PROZAC) 40 mg capsule Take 1 capsule by mouth once daily. - estrogens conjugated (PREMARIN) 0.625 mg tablet Take 1 tablet by mouth two times a week. - cyclobenzaprine (FLEXERIL) 10 mg tablet Take once a day as needed for pain. - WALKER ROLLATOR SEAT WITH 6 WHEELS - RED UAD - acetaminophen (TYLENOL ARTHRITIS PAIN) 650 mg CR tablet Take 650 mg by mouth every 8 hours as needed. - magnesium carb,citrate,oxide (MAGNESIUM COMPLEX ORAL) Take by mouth. Taking 500 mg magnesium - melatonin 10 mg cap Take by mouth as directed. - meloxicam (MOBIC) 15 mg tablet Take 15 mg by mouth once daily. Last dose 06/16 - amoxicillin (POLYMOX, AMOXIL) 500 mg capsule Take 4 capsules by mouth as needed. Before dental procedures. - mirabegron (MYRBETRIQ) 50 mg Tb24 Take by mouth every morning. - LOW-DOSE ASPIRIN ORAL Take 81 mg by mouth once daily. Last dose 06/16 - GLUCOSAMINE HCL/CHONDR PACHECO A NA (OSTEO BI-FLEX ORAL) Take by mouth once daily. Last dose 06/10 - multivitamins(DAILY MULTIVITAMIN TAB) Take 1 tablet by mouth once daily. Last dose 06/10 - ascorbic acid(VITAMIN C 500 MG SR CAP) Take 1,000 mg by mouth once daily. Last dose 06/10 - COLACE 100 MG CAP Take by mouth every morning. Problem List As Of Date 10/31/2024 Noted Resolved OSTEOARTHRITIS LOCALIZED, PRIMARY( Lower Leg) [*07/22/2005 Hallux valgus (acquired) [M20.10] 04/12/2008 Other complications due to other internal ortho*07/03/2008 Symptomatic menopausal or female climacteric st*08/03/2011 Anxiety [F41.9] History of knee replacement, total [Z96.659] Constipation [K59.00] Routine gynecological examination [Z01.419] 04/01/2023 Hiatal hernia [K44.9] Fatty liver [K76.0] Allergic rhinitis [J30.9] 08/31/2013 Overactive bladder [N32.81] 08/31/2013 OA (osteoarthritis) [M19.90] 08/31/2013 GERD (gastroesophageal reflux disease) [K21.9] 06/04/2015 Insomnia [G47.00] 06/04/2015 Elevated blood pressure reading without diagnos*06/04/2015 10/11/2015 Prolonged Q-T interval on ECG [R94.31] 06/04/2015 Essential hypertension with goal blood pressure*06/27/2015 Current use of proton pump inhibitor [Z79.899] 04/21/2016 07/25/2021 Elevated fasting blood sugar [R73.01] 2016 MARCELLE (obstructive sleep apnea) [G47.33] 05/24/2017 Medicare annual wellness visit, subsequent [Z00*11/04/2017 Muscle spasm [M62.838] 12/14/2017 Family history of malignant neoplasm of gastroi* Obesity [E66.9] 05/04/2018 Rheumatoid arthritis involving multiple sites w*05/05/2018 Other age-related cataract [H25.89] 07/27/2018 Medication management [Z79.899] 06/12/2020 Other skin changes [R23.8] 01/21/2021 Hyponatremia [E87.1] 01/31/2021 Living will on file at physician's office [Z78.*02/04/2022 Advance directive discussed with patient [Z71.8*02/04/2022 Arthritis of left shoulder re (more content not included)... [facility] 10-27-2024 Telephone encounter Note Form completed and ready to be faxed. [facility] 10-27-2024 Telephone encounter Note Form completed by Provider and has been faxed back to number below. Aiyana Loco MA [facility] 10-27-2024 Miscellaneous Notes Form completed and ready to be faxed. Form completed by Provider and has been faxed back to number below. Aiyana Loco MA Type of form: Physician Order from [employer] Form received via fax When form is completed, Fax form to [phone] Form has been forwarded to Physician Desk: Dr. Ghada Loco MA documented in this encounter [facility] 10-27-2024 Telephone encounter Note Type of form: Physician Order from [employer] Form received via fax When form is completed, Fax form to [phone] Form has been forwarded to Physician Desk: Dr. Ghada Loco MA [facility] 10-23-2024 Telephone encounter Note Everything faxed to [employer] at [phone]. Pt notified via [employer] In[employer]. Aiyana Loco MA [facility] 10-23-2024 Miscellaneous Notes Everything faxed to [employer] at [phone]. Pt notified via [employer]. Aiyana Loco MA Order and documentation ready to be faxed. Paperwork routed to your desk for review. Aiyana Loco MA I need a copy of her CPAP titration study done by [facility] Sleep lab around 2018. See pt message and advise. Pt last seen on 02/09/24 for Medicare Wellness. Aiyana Loco MA documented in this encounter [facility] 10-23-2024 Telephone encounter Note Order and documentation ready to be faxed. [facility] 10-23-2024 Telephone encounter Note Paperwork routed to your desk for review. Aiyana Loco MA [facility] 10-23-2024 Telephone encounter Note I need a copy of her CPAP titration study done by [facility] Sleep lab around 2018. [facility] 10-23-2024 Telephone encounter Note See pt message and advise. Pt last seen on 02/09/24 for Medicare Wellness. Aiyana Loco MA [facility] 08-11-2024 Note HNO ID: [id number] Author: MACIE ADRIAN LPN Service: ? Author Type: LICENSED NURSE Type: Progress Notes Filed: 08/11/2024 09:40 Note Text: Scan on 08/11/2024 9:01 AM by ProviderAnthony PA-C: Consultation - Orthopedics [facility] 08-11-2024 History of Present illness Narrative Scan on 08/11/2024 9:01 AM by ProviderAnthony PA-C: Consultation - Orthopedics documented in this encounter [facility] 08-10-2024 Evaluation note Diagnosis Onset Date Resolution Degenerative disc disease, lumbar acute August 10, 2024 2:15pm Lumbar stenosis with neurogenic claudication acute July 2:15pm Scoliosis acute August 10 2:15pm [facility] Work Phone: 1(315) 746-716406-12-2025 NoteHNO ID: [id number] Author: JENNI STAHL APRN.MARINE EQUIPMENT PRESERVATION INSPECTOR Service: ? Author Type: Nurse Practitioner Type: Progress Notes Filed: 08/10/2024 14:07 Note Text: Chief Complaint Patient presents with: 6 Month Exam HPI Nia Kiran is a 73 year old female who presents here today for Above Complaints and left ear pain. Patient presents for 6 month follow up. States that she has had some intermittent pain to the left jaw/ear over the last 2 weeks. Does have a hx of TMJ but would like ear looked at to make sure there is no infection or wax build up. Pain is worse after dinner, relieved with Tylenol. BP- well controlled in office. Taking medication as prescribed. Denies any CP or palpitations. Insomnia- wearing a C-pap at night and takes Ambien. Only wakes up at night to use the bathroom. Stenosis- pain has been bothersome, but sees spine later today. Past medical history, appointments, medications, allergies reviewed. Previous Medical History PAST MEDICAL HISTORY Diagnosis Date Acute pain of right shoulder 08/21/2022 Seeing [facility] 07/2022 Advance directive discussed with patient 02/04/2022 Discussed 01/2022: up to date Allergic rhinitis 08/31/2013 Anxiety Chronic pain syndrome 05/06/202304/2023 seeing Pain management, Dr. Atul couch 01/21/2009 Constipation COPD (chronic obstructive pulmonary disease) (HCC) well controlled-managed by PCP Elevated fasting blood sugar 2016 Essential hypertension with goal blood pressure less than 140/90 06/27/2015 well controlled-managed by PCP Family history of malignant neoplasm of gastrointestinal tract Fatty liver Gastroesophageal reflux disease without esophagitis 06/04/2015 Hallux valgus (acquired) 04/12/2008 Hemorrhage of gastrointestinal tract, unspecified Hiatal hernia sliding History of knee replacement, total both Hyponatremia 01/31/2021 Related to Hctz Insomnia 06/04/2015 LBBB (left bundle branch block) 05/29/2022 Living will on file at physician's office 02/04/2022 DPA: Alessandra (daughter) Medicare annual wellness visit, initial 11/04/2017 Medicare Part B: 09/29/2017 last done: 11/10/2019 Medicare annual wellness visit, subsequent 11/04/2017 Medicare Part B: 09/29/2017 last done: 02/04/2022 Muscle spasm 12/14/2017 Uses prn flexeril OA (osteoarthritis) 08/31/2013 Sees Ortho for Shoulder: Dr. Mahoney Obesity, Class III, BMI 40-49.9 (morbid obesity) ([facility]) 05/04/2018 OSTEOARTHRITIS LOCALIZED, PRIMARY( Lower Leg) 07/22/2005 Osteopenia, senile 05/26/2024 DXA: 04/2024 Other age-related cataract 07/27/[address] Turcios Other complications due to other internal orthopedic device, implant, and graft 07/03/2008 Other skin changes 01/21/[address] Turcios for twice a year skin checks Overactive bladder 08/31/2013 Prolonged Q-T interval on ECG 06/04/2015 Per cardio felt to be prozac related. Rheumatoid arthritis involving multiple sites with positive rheumatoid factor ([facility]) 05/05/[address] Schmidt Severe obstructive sleep apnea 05/24/2017 compliant with CPAP Spinal stenosis of lumbar region with neurogenic claudication 12/15/2022 Symptomatic menopausal or female climacteric states 08/03/2011 Previous Surgical History PAST SURGICAL HISTORY Procedure Laterality Date ANESTHESIA CLOSED PROCEDURES KNEE JOINT 2006 LEFT ANKLE LEFT ARTHROSCOPY KNEE DIAGNOSTIC W/WO SYNOVIAL BX SPX Left 2006 CARDIAC CATH 05/19/2017 normal coronaries CATARACT EXTRACTION HX Bilateral 07/2018 and 08/2018 COLONOSCOPY FLX DX W/COLLJ SPEC WHEN PFRMD 10/04/2008 COLONOSCOPY FLX DX W/COLLJ SPEC WHEN PFRMD 12/07/2013 Colonoscopy, repeat 5 yrs COLONOSCOPY FLX DX W/COLLJ SPEC WHEN PFRMD 12/05/2018 Colonoscopy CORRECTION OF BUNION 04/2008 Left foot ESOPHAGOGASTRODUODENOSCOPY TRANSORAL DIAGNOSTIC 12/05/2018 EGD PAST SURGICAL HISTORY OF 2009 ligament surgery on both thumbs REPAIR ENTEROCELE,VAG APPRCH 04/18/2019 REPAIR OF RECTOCELE 04/18/2019 ROTATOR CUFF REPAIR 10/2012 left shouldar TOTAL KNEE REPLACEMENT 01/2009 right VAGINAL HYSTERECTOMY UTERUS 250 GM/< 10/2004 WITH TVT Family History FAMILY HISTORY Problem Relation Age of Onset Diabetes Mother Coronary Artery Disease Mother 80's Cancer Father Lung Leukemia Brother No Known Problems Brother Colon Cancer Brother other (Brain Aneurism) Brother other (Other) Brother Accident age 5 No Known Problems Maternal Grandmother No Known Problems Maternal Grandfather No Known Problems Paternal Grandmother No Known Problems Paternal Grandfather No Known Problems Daughter No Known Problems Daughter Blood Disease Daughter Essential Thrombocytosis and Von Willinbers Disease No Known Problems Daughter Patient Allergies ALLERGIES Allergen Reactions Morphine Rash And delusions Demerol [Meperidine* Itching Dilaudid [H[employer]orp* Itching Percocet [Oxycodone* Unknown (more content not included)...[facility]06-12-2025 History of Present illness Narrative* Jenni Stahl APRN.MARINE EQUIPMENT PRESERVATION INSPECTOR - 08/10/2024 12:50 PM EDT Chief Complaint Patient presents with: 6 Month Exam HPI Nia Kiran is a 73 year old female who presents here today for Above Complaints and left ear pain. Patient presents for 6 month follow up. States that she has had some intermittent pain to the left jaw/ear over the last 2 weeks. Does have a hx of TMJ but would like ear looked at to make sure thereis no infection or wax build up. Pain is worse after dinner, relieved with Tylenol. BP- well controlled in office. Taking medication as prescribed. Denies any CP or palpitations. Insomnia- wearing a C-pap at night and takes Ambien. Only wakes up at night to use the bathroom. Stenosis- pain has been bothersome, but sees spine later today. Past medical history, appointments, medications, allergies reviewed. Previous Medical History PAST MEDICAL HISTORY Diagnosis Date Acute pain of right shoulder 08/21/2022 Seeing Jade Santiago 07/2022 Advance directive discussed with patient 02/04/2022 Discussed 01/2022: up to date Allergic rhinitis 08/31/2013 Anxiety Chronic pain syndrome 05/06/202304/2023 seeing Pain management, Dr. Pollard Common wart 01/21/2009 Constipation COPD (chronic obstructive pulmonary disease) (HCC) well controlled-managed by PCP Elevated fasting blood sugar 2016 Essential hypertension with goal blood pressure less than 140/90 06/27/2015 well controlled-managed by PCP Family history of malignant neoplasm of gastrointestinal tract Fatty liver Gastroesophageal reflux disease without esophagitis 06/04/2015 Hallux valgus (acquired) 04/12/2008 Hemorrhage of gastrointestinal tract, unspecified Hiatal hernia sliding History of knee replacement, total both Hyponatremia 01/31/2021 Related to Hctz Insomnia 06/04/2015 LBBB (left bundle branch block) 05/29/2022 Living will on file at physician's office 02/04/2022 DPA: Alessandra (daughter) Medicare annual wellness visit, initial 11/04/2017 Medicare Part B: 09/29/2017 last done: 11/10/2019 Medicare annual wellness visit, subsequent 11/04/2017 Medicare Part B: 09/29/2017 last done: 02/04/2022 Muscle spasm 12/14/2017 Uses prn flexeril OA (osteoarthritis) 08/31/2013 Sees Ortho for Shoulder: Dr. Mahoney Obesity, Class III, BMI 40-49.9 (morbid obesity) (HCC) 05/04/2018 OSTEOARTHRITIS LOCALIZED, PRIMARY( Lower Leg) 07/22/2005 Osteopenia, senile 05/26/2024 DXA: 04/2024 Other age-related cataract 07/27/[address] Turcios Other complications due to other internal orthopedic device, implant, and graft 07/03/2008 Other skin changes 01/21/[address] Turcios for twice a year skin checks Overactive bladder 08/31/2013 Prolonged Q-T interval on ECG 06/04/2015 Per cardio felt to be prozac related. Rheumatoid arthritis involving multiple sites with positive rheumatoid factor ([facility]) 05/05/[address] Schmidt Severe obstructive sleep apnea 05/24/2017 compliant with CPAP Spinal stenosis of lumbar region with neurogenic claudication 12/15/2022 Symptomatic menopausal or female climacteric states 08/03/2011 Previous Surgical History PAST SURGICAL HISTORY Procedure Laterality Date ANESTHESIA CLOSED PROCEDURES KNEE JOINT 2006 LEFT ANKLE LEFT ARTHROSCOPY KNEE DIAGNOSTIC W/WO SYNOVIAL BX SPX Left 2006 CARDIAC CATH 05/19/2017 normal coronaries CATARACT EXTRACTION HX Bilateral 07/2018 and 08/2018 COLONOSCOPY FLX DX W/COLLJ SPEC WHEN PFRMD 10/04/2008 COLONOSCOPY FLX DX W/COLLJ SPEC WHEN PFRMD 12/07/2013 Colonoscopy, repeat 5 yrs COLONOSCOPY FLX DX W/COLLJ SPEC WHEN PFRMD 12/05/2018 Colonoscopy CORRECTION OF BUNION 04/2008 Left foot ESOPHAGOGASTRODUODENOSCOPY TRANSORAL DIAGNOSTIC 12/05/2018 EGD PAST SURGICAL HISTORY OF 2009 ligament surgery on both thumbs REPAIR ENTEROCELE,VAG APPRCH 04/18/2019 REPAIR OF RECTOCELE 04/18/2019 ROTATOR CUFF REPAIR 10/2012 left shouldar TOTAL KNEE REPLACEMENT 01/2009 right VAGINAL HYSTERECTOMY UTERUS 250 GM/< 10/2004 WITH TVT Family History FAMILY HISTORY Problem Relation Age of Onset Diabetes Mother Coronary Artery Disease Mother 80's Cancer Father Lung Leukemia Brother No Known Problems Brother Colon Cancer Brother other (Brain Aneurism) Brother other (Other) Brother Accident age 5 No Known Problems Maternal Grandmother No Known Problems Maternal Grandfather No Known Problems Paternal Grandmother No Known Problems Paternal Grandfather No Known Problems Daughter No Known Problems Daughter Blood Disease Daughter Essential Thrombocytosis and Von Willinbers Disease No Known Problems Daughter Patient Allergies ALLERGIES Allergen Reactions Morphine Rash And delusions Demerol [Meperidine* Itching Dilaudid [Hydromorp* Itching Percocet [Oxycodone* Unknown Poison Michelle Swelling, Itching, Other: See Comments nausea Vicodin [Hydrocodon* Unknown Current Medications Current Outpatient Medications on File Prior to Visit Medication Sig omeprazole (PRILOSEC) 40 mg capsule Take 1 capsule by mouth once daily. cyclobenzaprine (FLEXERIL) 10 mg tablet Take once a day as needed for pain. FLUoxetine (PROZAC) 40 mg capsule Take 1 capsule by mouth once daily. lisinopril (ZESTRIL) 10 mg tablet Take 1 tablet by mouth once daily. montelukast (SINGULAIR) 10 mg tablet Take 1 tablet by mouth daily at bedtime. spironolactone (ALDACTONE) 25 mg tablet Take 1 tablet by mouth once daily. zolpidem (AMBIEN) 10 mg Take 1 tablet by mouth at bedtime as needed for up to 180 days. For Insomnia. WALKER ROLLATOR SEAT WITH 6 WHEELS - RED UAD acetaminophen (TYLENOL ARTHRITIS PAIN) 650 mg CR tablet Take 650 mg by mouth every 8 hours as needed. magnesium carb,citrate,oxide (MAGNESIUM COMPLEX ORAL) Take by mouth. Taking 500 mg magnesium melatonin 10 mg cap Take by mouth as directed. meloxicam (MOBIC) 15 mg tablet Take 15 mg by mouth once daily. Last dose 06/16 estrogens conjugated (PREMARIN) 0.625 mg tablet Take 1 tablet by mouth two times a week. hydrOXYchloroQUINE (PLAQUENIL) 200 mg tablet Take 1 tablet by mouth twice daily. Per rheumatology amoxicillin (POLYMOX, AMOXIL) 500 mg capsule Take 4 capsules by mouth as needed. Before dental procedures. mirabegron (MYRBETRIQ) 50 mg Tb24 Take by mouth every morning. LOW-DOSE ASPIRIN ORAL Take 81 mg by mouth once daily. Last dose 06/16 GLUCOSAMINE HCL/CHONDR PACHECO A NA (OSTEO BI-FLEX ORAL) Take by mouth once daily. Last dose 06/10 multivitamins(DAILY MULTIVITAMIN TAB) Take 1 tablet by mouth once daily. Last dose 06/10 ascorbic acid(VITAMIN C 500 MG SR CAP) Take 1,000 mg by mouth once daily. Last dose 06/10 COLACE 100 MG CAP Take by mouth every morning. No current facility-administered medications on file prior to visit. Social History Social History Tobacco Use Smoking status: Never Smokeless tobacco: Never Vaping Use Vaping status: Never Used Substance Use Topics Alcohol use: Not Currently Comment: Rarely Drug use: Never Review of Symptoms REVIEW OF SYSTEMS SEE HPI EXAM: BP 111/76 Pulse 88 Wt 127 kg (279 lb 15.8 oz) BMI 49.60 kg/m Ears: Positive findings: slight erythema to nolan ear canals, patient used qtips this morning. Lungs: Lungs clear to auscultation. No wheezing, rhonchi, rales.. Heart: RRR without murmur, gallop, or rubs. No ectopy. Health Maintenance List RSV Vaccine(1 - Risk 60-74 years 1-dose series) Never done Advance Directive Discussion due on 03/01/2024 Influenza Vaccine(Season Ended) due on 10/30/2024 Depression Screening due on 02/08/2025 Medicare Annual Wellness Visit due on 02/08/2025 Colorectal Cancer Screening due on 02/24/2025 Mammogram Screening due on 04/03/2025 Annual PCP Team Chronic Disease Visit due on 07/03/2025 Diabetes Screening due on 08/01/2027 Lipid Screening due on 07/31/2029 DTaP,Tdap,Td Vaccine(2 - Td or Tdap) due on 06/27/2034 Bone Density Screening Completed Hepatitis C Screening Completed Shingrix Vaccine Completed Pneumococcal Vaccine: 50+ Completed Covid-19 Vaccine Discontinued Data reviewed Latest Ref Rng 07/31/2024 08/02/2024 Glucose 74 - 99 mg/dL 118 (H) BUN 7 - 21 mg/dL 25 (H) Creatinine 0.58 - 0.96 mg/dL 0.99 (H) Sodium 136 - 144 mmol/L 133 (L) 136 Potassium 3.7 - 5.1 mmol/L 5.3 (H) 5.1 Chloride 98 - 107 mmol/L 99 CO2 22 - 30 mmol/L 25 Anion Gap 8 - 15 mmol/L 9 Calcium 8.5 - 10.2 mg/dL 9.3 eGFR >=60 mL/min/1.73m 61 Total Cholesterol, Nonfasting <200 mg/dL 181 Triglycerides, Nonfasting <150 mg/dL 44 HDL Cholesterol, Nonfasting >39 mg/dL 73 LDL Cholesterol Calculated, Nonfasting <100 mg/dL 99 Non HDL Cholesterol, Nonfasting <130 mg/dL 108 VLDL Cholesterol, Nonfasting <30 mg/dL 7 Total Chol/HDL Ratio, Nonfasting <5.10 mg/dL 2.48 LDL/HDL Ratio, Nonfasting <2.54 mg/dL 1.36 Hemoglobin A1C 4.3 - 5.6 % 5.8 (H) Estimated Average Glucose mg/dL 120 ASSESSMENT/PLAN: 1. Essential hypertension with goal blood pressure less than 140/90 - ICD9: 401.9, ICD10: I10 (primary diagnosis) - Controlled - Continue current medications - Recommend home blood pressure monitoring, to bring results to next visit - Encouraged sodium restriction, DASH or Mediterranean diet - Recommend regular aerobic exercise - Discussed need for and benefit of weight loss. BMI 49.60 kg/(m^2) - SPIRONOLACTONE 25 MG TABLET - LISINOPRIL 10 MG TABLET 2. Insomnia, unspecified type - ICD9: 780.52, ICD10: G47.00 - ZOLPIDEM 10 MG TABLET 3. Gastroesophageal reflux disease without esophagitis - ICD9: 530.81, ICD10: K21.9 - Continue treatment with Prilosec 40 mg QD - OMEPRAZOLE 40 MG CAPSULE,DELAYED RELEASE 4. Allergic rhinitis, unspecified seasonality, unspecified trigger - ICD9: 477.9, ICD10: J30.9 - MONTELUKAST 10 MG TABLET 5. Anxiety - ICD9: 300.00, ICD10: F41.9 - FLUOXETINE 40 MG CAPSULE 6. Symptomatic menopausal or female climacteric states - ICD9: 627.2, ICD10: N95.1 - CONJUGATED ESTROGENS 0.625 MG TABLET 7. Rheumatoid arthritis involving multiple sites with positive rheumatoid factor (HCC) - ICD9: 714.0, ICD10: M05.79 - HYDROXYCHLOROQUINE 200 MG TABLET Jenni Stahl APRN.MARINE EQUIPMENT PRESERVATION INSPECTOR PDMP reviewed. Patient requested and refilled prescriptions appropriately. No suspicious activity noted. [facility] Telephone encounter Note * Telephone Encounter - Cass Call LPN - 08/02/2024 12:39 PM EDT Phoned patient and updated her with message. She reports she will probably go today. Cass Call LPN [facility]06-[facility] Miscellaneous Notes* Telephone Encounter - Cass Call LPN - 08/02/2024 12:39 PM EDT Phoned patient and updated her with message. She reports she will probably go today. Cass Call LPN * Telephone Encounter - Sheridan Escobedo MA - 08/01/2024 9:01 AM EDT Left message for patient to contact office. Sheridan Escobedo MA * Telephone Encounter - Braulio Urrutia MD - 08/01/2024 8:30 AM EDT Let patient know recent labs showed her sodium was slightly low and her potassium was slightly elevated. I placed orders to recheck. Ask her to do them at the [facility]. documented in this encounterC[facility]06-[facility] Telephone encounter Note * Telephone Encounter - Sheridan Escobedo MA - 08/01/2024 9:01 AM EDT Left message for patient to contact office. Sheridan Escobedo MA [facility]06-[facility] Telephone encounter Note* Telephone Encounter - Braulio Urrutia MD - 08/01/2024 8:30 AM EDT Let patient know recent labs showed her sodium was slightly low and her potassium was slightly elevated. I placed orders to recheck. Ask her to do them at the [facility]. [facility] NoteHNO ID: [id number] Author: JENNI STAHL APRN.MARINE EQUIPMENT PRESERVATION INSPECTOR Service: ? Author Type: Nurse Practitioner Type: Progress Notes Filed: 07/03/2024 11:12 Note Text: Chief Complaint Patient presents with: ER F/U HPI Nia Kiran is a 73 year old female who presents here today for Above Complaints.. Left Index Finger Laceration: - Laceration occurred on 06/27 while trimming hedges. - Seen in [facility] ER, where 8 sutures were placed for a Y-shaped laceration at the distal left index finger. - Reports healing well with no drainage. Past medical history, appointments, medications, allergies reviewed. Previous Medical History PAST MEDICAL HISTORY Diagnosis Date Acute pain of right shoulder 08/21/2022 Seeing [facility] 07/2022 Advance directive discussed with patient 02/04/2022 Discussed 01/2022: up to date Allergic rhinitis 08/31/2013 Anxiety Chronic pain syndrome 05/06/202304/2023 seeing Pain management, Dr. Atul Shaffer wart 01/21/2009 Constipation COPD (chronic obstructive pulmonary disease) (HCC) well controlled-managed by PCP Elevated fasting blood sugar 2016 Essential hypertension with goal blood pressure less than 140/90 06/27/2015 well controlled-managed by PCP Family history of malignant neoplasm of gastrointestinal tract Fatty liver Gastroesophageal reflux disease without esophagitis 06/04/2015 Hallux valgus (acquired) 04/12/2008 Hemorrhage of gastrointestinal tract, unspecified Hiatal hernia sliding History of knee replacement, total both Hyponatremia 01/31/2021 Related to Hctz Insomnia 06/04/2015 LBBB (left bundle branch block) 05/29/2022 Living will on file at physician's office 02/04/2022 DPA: Alessandra (daughter) Medicare annual wellness visit, initial 11/04/2017 Medicare Part B: 09/29/2017 last done: 11/10/2019 Medicare annual wellness visit, subsequent 11/04/2017 Medicare Part B: 09/29/2017 last done: 02/04/2022 Muscle spasm 12/14/2017 Uses prn flexeril OA (osteoarthritis) 08/31/2013 Sees Ortho for Shoulder: Dr. Mahoney Obesity, Class III, BMI 40-49.9 (morbid obesity) ([facility]) 05/04/2018 OSTEOARTHRITIS LOCALIZED, PRIMARY( Lower Leg) 07/22/2005 Osteopenia, senile 05/26/2024 DXA: 04/2024 Other age-related cataract 07/27/[address] Turcios Other complications due to other internal orthopedic device, implant, and graft 07/03/2008 Other skin changes 01/21/[address] Turcios for twice a year skin checks Overactive bladder 08/31/2013 Prolonged Q-T interval on ECG 06/04/2015 Per cardio felt to be prozac related. Rheumatoid arthritis involving multiple sites with positive rheumatoid factor ([facility]) 05/05/[address] Schmidt Severe obstructive sleep apnea 05/24/2017 compliant with CPAP Spinal stenosis of lumbar region with neurogenic claudication 12/15/2022 Symptomatic menopausal or female climacteric states 08/03/2011 Previous Surgical History PAST SURGICAL HISTORY Procedure Laterality Date ANESTHESIA CLOSED PROCEDURES KNEE JOINT 2006 LEFT ANKLE LEFT ARTHROSCOPY KNEE DIAGNOSTIC W/WO SYNOVIAL BX SPX Left 2006 CARDIAC CATH 05/19/2017 normal coronaries CATARACT EXTRACTION HX Bilateral 07/2018 and 08/2018 COLONOSCOPY FLX DX W/COLLJ SPEC WHEN PFRMD 10/04/2008 COLONOSCOPY FLX DX W/COLLJ SPEC WHEN PFRMD 12/07/2013 Colonoscopy, repeat 5 yrs COLONOSCOPY FLX DX W/COLLJ SPEC WHEN PFRMD 12/05/2018 Colonoscopy CORRECTION OF BUNION 04/2008 Left foot ESOPHAGOGASTRODUODENOSCOPY TRANSORAL DIAGNOSTIC 12/05/2018 EGD PAST SURGICAL HISTORY OF 2009 ligament surgery on both thumbs REPAIR ENTEROCELE,VAG APPRCH 04/18/2019 REPAIR OF RECTOCELE 04/18/2019 ROTATOR CUFF REPAIR 10/2012 left shouldar TOTAL KNEE REPLACEMENT 01/2009 right VAGINAL HYSTERECTOMY UTERUS 250 GM/< 10/2004 WITH TVT Family History FAMILY HISTORY Problem Relation Age of Onset Diabetes Mother Coronary Artery Disease Mother 80's Cancer Father Lung Leukemia Brother No Known Problems Brother Colon Cancer Brother other (Brain Aneurism) Brother other (Other) Brother Accident age 5 No Known Problems Maternal Grandmother No Known Problems Maternal Grandfather No Known Problems Paternal Grandmother No Known Problems Paternal Grandfather No Known Problems Daughter No Known Problems Daughter Blood Disease Daughter Essential Thrombocytosis and Von Willinbers Disease No Known Problems Daughter Patient Allergies ALLERGIES Allergen Reactions Morphine Rash And delusions Demerol [Meperidine* Itching Dilaudid [Hydromorp* Itching Percocet [Oxycodone* Unknown Poison Michelle Swelling, Itching, Other: See Comments nausea Vicodin [Hydrocodon* Unknown Current Medications Current Outpatient Medications on File Prior to Visit Medication Sig omeprazole (PRILOSEC) 40 mg capsule Take 1 capsule by mouth once daily. cyclobenzaprine (FLEXERIL) 10 mg tablet Take once a day as needed for pain. (more content not included)...[facility]05[facility] History of Present illness Narrative* Jenni Stahl APRN.[facility] - 07/03/2024 10:47 AM EDT Chief Complaint Patient presents with: ER F/U HPI Nia Kiran is a 73 year old female who presents here today for Above Complaints.. Left Index Finger Laceration: - Laceration occurred on 06/27 while trimming hedges. - Seen in [facility] ER, where 8 sutures were placed for a Y-shaped laceration at the distal left index finger. - Reports healing well with no drainage. Past medical history, appointments, medications, allergies reviewed. Previous Medical History PAST MEDICAL HISTORY Diagnosis Date Acute pain of right shoulder 08/21/2022 Seeing Jade [facility]ia[facility] 07/2022 Advance directive discussed with patient 02/04/2022 Discussed 01/2022: up to date Allergic rhinitis 08/31/2013 Anxiety Chronic pain syndrome 05/06/202304/2023 seeing Pain management, Dr. Pollard Common wart 01/21/2009 Constipation COPD (chronic obstructive pulmonary disease) ([facility]) well controlled-managed by PCP Elevated fasting blood sugar 2016 Essential hypertension with goal blood pressure less than 140/90 06/27/2015 well controlled-managed by PCP Family history of malignant neoplasm of gastrointestinal tract Fatty liver Gastroesophageal reflux disease without esophagitis 06/04/2015 Hallux valgus (acquired) 04/12/2008 Hemorrhage of gastrointestinal tract, unspecified Hiatal hernia sliding History of knee replacement, total both Hyponatremia 01/31/2021 Related to Hctz Insomnia 06/04/2015 LBBB (left bundle branch block) 05/29/2022 Living will on file at physician's office 02/04/2022 DPA: Alessandra (daughter) Medicare annual wellness visit, initial 11/04/2017 Medicare Part B: 09/29/2017 last done: 11/10/2019 Medicare annual wellness visit, subsequent 11/04/2017 Medicare Part B: 09/29/2017 last done: 02/04/2022 Muscle spasm 12/14/2017 Uses prn flexeril OA (osteoarthritis) 08/31/2013 Sees Ortho for Shoulder: Dr. Mahoney Obesity, Class III, BMI 40-49.9 (morbid obesity) ([facility]) 05/04/2018 OSTEOARTHRITIS LOCALIZED, PRIMARY( Lower Leg) 07/22/2005 Osteopenia, senile 05/26/2024 DXA: 04/2024 Other age-related cataract 07/27/[address] Turcios Other complications due to other internal orthopedic device, implant, and graft 07/03/2008 Other skin changes 01/21/[address] Turcios for twice a year skin checks Overactive bladder 08/31/2013 Prolonged Q-T interval on ECG 06/04/2015 Per cardio felt to be prozac related. Rheumatoid arthritis involving multiple sites with positive rheumatoid factor (HCC) 05/05/[address] Schmidt Severe obstructive sleep apnea 05/24/2017 compliant with CPAP Spinal stenosis of lumbar region with neurogenic claudication 12/15/2022 Symptomatic menopausal or female climacteric states 08/03/2011 Previous Surgical History PAST SURGICAL HISTORY Procedure Laterality Date ANESTHESIA CLOSED PROCEDURES KNEE JOINT 2006 LEFT ANKLE LEFT ARTHROSCOPY KNEE DIAGNOSTIC W/WO SYNOVIAL BX SPX Left 2006 CARDIAC CATH 05/19/2017 normal coronaries CATARACT EXTRACTION HX Bilateral 07/2018 and 08/2018 COLONOSCOPY FLX DX W/COLLJ SPEC WHEN PFRMD 10/04/2008 COLONOSCOPY FLX DX W/COLLJ SPEC WHEN PFRMD 12/07/2013 Colonoscopy, repeat 5 yrs COLONOSCOPY FLX DX W/COLLJ SPEC WHEN PFRMD 12/05/2018 Colonoscopy CORRECTION OF BUNION 04/2008 Left foot ESOPHAGOGASTRODUODENOSCOPY TRANSORAL DIAGNOSTIC 12/05/2018 EGD PAST SURGICAL HISTORY OF 2009 ligament surgery on both thumbs REPAIR ENTEROCELE,VAG APPRCH 04/18/2019 REPAIR OF RECTOCELE 04/18/2019 ROTATOR CUFF REPAIR 10/2012 left shouldar TOTAL KNEE REPLACEMENT 01/2009 right VAGINAL HYSTERECTOMY UTERUS 250 GM/< 10/2004 WITH TVT Family History FAMILY HISTORY Problem Relation Age of Onset Diabetes Mother Coronary Artery Disease Mother 80's Cancer Father Lung Leukemia Brother No Known Problems Brother Colon Cancer Brother other (Brain Aneurism) Brother other (Other) Brother Accident age 5 No Known Problems Maternal Grandmother No Known Problems Maternal Grandfather No Known Problems Paternal Grandmother No Known Problems Paternal Grandfather No Known Problems Daughter No Known Problems Daughter Blood Disease Daughter Essential Thrombocytosis and Von Willinbers Disease No Known Problems Daughter Patient Allergies ALLERGIES Allergen Reactions Morphine Rash And delusions Demerol [Meperidine* Itching Dilaudid [Hydromorp* Itching Percocet [Oxycodone* Unknown Poison Michelle Swelling, Itching, Other: See Comments nausea Vicodin [Hydrocodon* Unknown Current Medications Current Outpatient Medications on File Prior to Visit Medication Sig omeprazole (PRILOSEC) 40 mg capsule Take 1 capsule by mouth once daily. cyclobenzaprine (FLEXERIL) 10 mg tablet Take once a day as needed for pain. FLUoxetine (PROZAC) 40 mg capsule Take 1 capsule by mouth once daily. lisinopril (ZESTRIL) 10 mg tablet Take 1 tablet by mouth once daily. montelukast (SINGULAIR) 10 mg tablet Take 1 tablet by mouth daily at bedtime. spironolactone (ALDACTONE) 25 mg tablet Take 1 tablet by mouth once daily. zolpidem (AMBIEN) 10 mg Take 1 tablet by mouth at bedtime as needed for up to 180 days. For Insomnia. WALKER ROLLATOR SEAT WITH 6 WHEELS - RED UAD acetaminophen (TYLENOL ARTHRITIS PAIN) 650 mg CR tablet Take 650 mg by mouth every 8 hours as needed. magnesium carb,citrate,oxide (MAGNESIUM COMPLEX ORAL) Take by mouth. Taking 500 mg magnesium melatonin 10 mg cap Take by mouth as directed. meloxicam (MOBIC) 15 mg tablet Take 15 mg by mouth once daily. Last dose 06/16 estrogens conjugated (PREMARIN) 0.625 mg tablet Take 1 tablet by mouth two times a week. hydrOXYchloroQUINE (PLAQUENIL) 200 mg tablet Take 1 tablet by mouth twice daily. Per rheumatology amoxicillin (POLYMOX, AMOXIL) 500 mg capsule Take 4 capsules by mouth as needed. Before dental procedures. mirabegron (MYRBETRIQ) 50 mg Tb24 Take by mouth every morning. LOW-DOSE ASPIRIN ORAL Take 81 mg by mouth once daily. Last dose 06/16 GLUCOSAMINE HCL/CHONDR PACHECO A NA (OSTEO BI-FLEX ORAL) Take by mouth once daily. Last dose 06/10 multivitamins(DAILY MULTIVITAMIN TAB) Take 1 tablet by mouth once daily. Last dose 06/10 ascorbic acid(VITAMIN C 500 MG SR CAP) Take 1,000 mg by mouth once daily. Last dose 06/10 COLACE 100 MG CAP Take by mouth every morning. No current facility-administered medications on file prior to visit. Social History Social History Tobacco Use Smoking status: Never Smokeless tobacco: Never Vaping Use Vaping status: Never Used Substance Use Topics Alcohol use: Not Currently Comment: Rarely Drug use: Never Review of Symptoms REVIEW OF SYSTEMS SEE HPI EXAM: BP 108/75 Pulse 98 Wt 129 kg (284 lb 6.3 oz) BMI 50.38 kg/m General Appearance: Well appearing, alert, in no acute distress, well-hydrated, well nourished. Skin: .well approximated Y shaped laceration to distal tip of left index finger. 8 sutures removed without difficulty. No redness, swelling, drainage noted. Health Maintenance List RSV Vaccine(1 - Risk 60-74 years 1-dose series) Never done BP Controlled (<130/80) due on 11/09/2020 Advance Directive Discussion due on 03/01/2024 Influenza Vaccine(Season Ended) due on 10/30/2024 Annual PCP Team Chronic Disease Visit due on 02/08/2025 Depression Screening due on 02/08/2025 Colorectal Cancer Screening due on 02/24/2025 Mammogram Screening due on 04/03/2025 Diabetes Screening due on 02/01/2027 Lipid Screening due on 01/30/2029 DTaP,Tdap,Td Vaccine(2 - Td or Tdap) due on 06/27/2034 Bone Density Screening Completed Hepatitis C Screening Completed Shingrix Vaccine Completed Pneumococcal Vaccine: 50+ Completed Covid-19 Vaccine Discontinued ASSESSMENT/PLAN: 1. Laceration of left index finger without foreign body without damage to nail, initial encounter -ICD9: 883.0, ICD10: S61.211A -steri strips applied to laceration for continued healing as small area of separation noted to lateral side of laceration once sutures were removed. Bandaid applied. Jenni Stahl APRN.TEETEE documented in this encounterC[facility] Hospital Discharge instructions Patient Education 06/27/2024 18:25:46 Laceration: All Closures Laceration: All Closures A laceration is a cut through the skin. This will usually require stitches (sutures) or connor if it is deep. Minor cuts may be treated with a surgical tape closure or skin glue. Home care Your healthcare provider may prescribe an antibiotic. This is to help prevent infection. Follow allinstructions for taking this medicine. Take the medicine every day until it is gone or you are toldto stop. You should not have any left over. The healthcare provider may prescribe medicines for pain. If no pain medicines were prescribed, youcan use [id number] pain medicines. Follow instructions for taking any pain medicines. (Note: If you have chronic liver or kidney disease, or ever had a stomach ulcer or gastrointestinal bleeding, talk with your doctor before using these medicines.) Follow the healthcare provider s instructions on how to care for the cut. Keep the wound clean and dry. Do not get the wound wet until you are told it is OK to do so. If thearea gets wet, gently pat it dry with a clean cloth. Replace the wet bandage with a dry one. If a bandage was applied and it becomes wet or dirty, replace it. Otherwise, leave it in place for the first 24 hours. Caring for sutures or connor: Once you no longer need to keep them dry, clean the wound daily. First, remove the bandage. Then wash the area gently with soap and warm water, or as directed by the healthcare provider. Use a wet cotton swab to loosen and remove any blood or crust that forms. After cleaning, apply a thin layer of antibiotic ointment if advised. Then put on a new bandage unless you are told not to. Caring for skin glue: Don t put apply liquid, ointment, or cream on the wound while the glue is in place. Avoid activities that cause heavy sweating. Protect the wound from sunlight. Do not scratch, rub, or pick at the adhesive film. Do not place tape directly over the film. The glue should peel off within 5 to 10 days. Caring for surgical tape: Keep the area dry. If it gets wet, blot it dry with a clean towel. Surgical tape usually falls off within 7 to 10 days. If it has not fallen off after 10 days, you can take it off yourself. Put mineral oil or petroleum jelly on a cotton ball and gently rub the tape until it is removed. Once you can get the wound wet, you may shower as usual but do not soak the wound in water (no tub baths or swimming) Even with proper treatment, a wound infection may sometimes occur. Check the wound daily for signs of infection listed below. Scalp wounds During the first 2 days, you may carefully rinse your hair in the shower to remove blood, glass or dirt particles. After two days, you may shower and shampoo your hair normally. Do not soak your scalp in the tub or go swimming until the stitches or connor have been removed. Talk with your healthcare provider before applying any antibiotic ointment to the wound. Mouth wounds Eat soft foods to reduce pain. If the cut is inside of your mouth, clean by rinsing after each mealand at bedtime with a mixture of equal parts water and hydrogen peroxide (do not swallow!). Or, youcan use a cotton swab to directly apply hydrogen peroxide onto the cut. You may also be prescribed a chlorhexidine solution to rise with. Mouth wounds can be painful when eating. You may use an rtaj-qas-jxpbbaw local numbing solution for pain relief. If this is not available, you may use any numbing solution intended for teething babies. You may apply this directly to the sores with a cotton-tip swab or with your finger. Follow-up care Follow up with your healthcare provider as advised. Ask your healthcare provider how long sutures should be left in place. Be sure to return for suture removal as directed. If dissolving stitches were used in the mouth, these should fall out or dissolve without the need for removal. If tape closures were used, remove them yourself when your provider recommends if they have not fallen off on theirown. If skin glue was used, the film will wear off by itself. Generally, you should keep healing wounds out of direct sunlight for the first couple of months to try to lessen scarring. When to seek medical advice Call your healthcare provider right away if any of these occur: Signs of infection, including increasing pain in the wound, increasing wound redness or swelling, or pus or bad odor coming from the wound Fever of 100.4 F (38. C) or higher, or as directed by your healthcare provider Stitches or connor come apart or fall out or surgical tape falls off before 7 days Wound edges reopen Wound changes colors Numbness around the wound after any numbing medicine should have worn off Decreased movement around the injured area Call 911 Call 911 if you can't control the wound bleeding with direct pressure. 2940-9499 [employer] [address] [place] [address]. All rights reserved. This information is not intended as a substitute for professional medical care. Always follow yourhealthcare professional's instructions. Follow Up Care 06/27/2024 17:49:22 With:BRAULIO URRUTIA MD Address: [address] [place] [id number]- When:2-[address] [facility] 04-29-2025 Note Discharge Instructions Thank you for allowing [facility] to assist you with your healthcare needs. The following is importantdischarge information regarding your hospital visit. Diagnosis from Today's Visit Finger laceration What to Do Next Instructions from Your Care Team your stitches need removed in 7 days No qualifying data available. Post Acute Orders No qualifying data available. You Need to Schedule the Following Appointments Follow Up with BRAULIO URRUTIA MD When:Within 2-4 days Where:[address] [place] [id number]- Allergies Demerol Dilaudid morphine Immunizations This Visit Given Vaccine Datetetanus/diphth/pertuss (Tdap) adult/adol 06/27/2024 Medications Please ask your primary doctor or pharmacist before taking any other medication not listed, including over the counter drugs, herbal medications, vitamins and or supplements as they may interact withyour home medications. What How Much When Instructions Last Dose Unchanged aspirin Unchanged cyclobenzaprine (Flexeril use cyclobenzaprine ) by mouth Unchanged FLUoxetine (PROzac) by mouth Once a day Unchanged lisinopril by mouth Once a day Unchanged montelukast (Singulair) Once a day Unchanged spironolactone by mouth Please take this list to your next doctor s visit. Bring all medications you take, including over the counter medications, herbals and other supplements with you to your doctor s visit. Patients and families are reminded to discard old lists and to update any records with all medication providers or retail pharmacies. Education Materials Laceration: All Closures A laceration is a cut through the skin. This will usually require stitches (sutures) or connor if it is deep. Minor cuts may be treated with a surgical tape closure or skin glue. Home care Your healthcare provider may prescribe an antibiotic. This is to help prevent infection. Follow allinstructions for taking this medicine. Take the medicine every day until it is gone or you are toldto stop. You should not have any left over. The healthcare provider may prescribe medicines for pain. If no pain medicines were prescribed, youcan use hsxe-tck-fqwrlfo pain medicines. Follow instructions for taking any pain medicines. (Note: If you have chronic liver or kidney disease, or ever had a stomach ulcer or gastrointestinal bleeding, talk with your doctor before using these medicines.) Follow the healthcare provider s instructions on how to care for the cut. Keep the wound clean and dry. Do not get the wound wet until you are told it is OK to do so. If thearea gets wet, gently pat it dry with a clean cloth. Replace the wet bandage with a dry one. If a bandage was applied and it becomes wet or dirty, replace it. Otherwise, leave it in place for the first 24 hours. Caring for sutures or connor: Once you no longer need to keep them dry, clean the wound daily. First, remove the bandage. Then wash the area gently with soap and warm water, or as directed by the healthcare provider. Use a wet cotton swab to loosen and remove any blood or crust that forms. After cleaning, apply a thin layer of antibiotic ointment if advised. Then put on a new bandage unless you are told not to. Caring for skin glue: Don t put apply liquid, ointment, or cream on the wound while the glue is in place. Avoid activities that cause heavy sweating. Protect the wound from sunlight. Do not scratch, rub, or pick at the adhesive film. Do not place tape directly over the film. The glue should peel off within 5 to 10 days. Caring for surgical tape: Keep the area dry. If it gets wet, blot it dry with a clean towel. Surgical tape usually falls off within 7 to 10 days. If it has not fallen off after 10 days, you can take it off yourself. Put mineral oil or petroleum jelly on a cotton ball and gently rub the tape until it is removed. Once you can get the wound wet, you may shower as usual but do not soak the wound in water (no tub baths or swimming) Even with proper treatment, a wound infection may sometimes occur. Check the wound daily for signs of infection listed below. Scalp wounds During the first 2 days, you may carefully rinse your hair in the shower to remove blood, glass or dirt particles. After two days, you may shower and shampoo your hair normally. Do not soak your scalp in the tub or go swimming until the stitches or connor have been removed. Talk with your healthcare provider before applying any antibiotic ointment to the wound. Mouth wounds Eat soft foods to reduce pain. If the cut is inside of your mouth, clean by rinsing after each mealand at bedtime with a mixture of equal parts water and hydrogen peroxide (do not swallow!). Or, youcan use a cotton swab to directly apply hydrogen peroxide onto the cut. You may also be prescribed a chlorhexidine solution to rise with. Mouth wounds can be painful when eating. You may use an tkhh-kkm-klxyrly local numbing solution for pain relief. If this is not available, you may use any numbing solution intended for teething babies. You may apply this directly to the sores with a cotton-tip swab or with your finger. Follow-up care Follow up with your healthcare provider as advised. Ask your healthcare provider how long sutures should be left in place. Be sure to return for suture removal as directed. If dissolving stitches were used in the mouth, these should fall out or dissolve without the need for removal. If tape closures were used, remove them yourself when your provider recommends if they have not fallen off on theirown. If skin glue was used, the film will wear off by itself. Generally, you should keep healing wounds out of direct sunlight for the first couple of months to try to lessen scarring. When to seek medical advice Call your healthcare provider right away if any of these occur: Signs of infection, including increasing pain in the wound, increasing wound redness or swelling, or pus or bad odor coming from the wound Fever of 100.4 F (38. C) or higher, or as directed by your healthcare provider Stitches or connor come apart or fall out or surgical tape falls off before 7 days Wound edges reopen Wound changes colors Numbness around the wound after any numbing medicine should have worn off Decreased movement around the injured area Call 911 Call 911 if you can't control the wound bleeding with direct pressure. 9623-5378 [employer] [address] [place] [address]. All rights reserved. This information is not intended as a substitute for professional medical care. Always follow yourhealthcare professional's instructions. Additional Information VACCINATE! IT SAVES LIVES! Members of the community who have not yet received the COVID-19 vaccine and would like to receive it can visit one of [facility] vaccine clinics. There are many vaccine clinic locations within the [facility]. For locations and available times, please visit www.[email or web address].[place].gov/. It is important to note that some COVID mobile vaccine clinics are held outdoors and may be canceled in rainy or stormy conditions. To learn more about pediatric vaccinations (ages 5-11), we invite you to visit the [facility] webpage. https://www.[email or web address].org/pages/6695-Mcjyp-Kasxpnuidyc-Albnxaxvvk-Gbsqz-Ziw stions.htmlTo learn more about the COVID-19 vaccine, we invite you to visit the CDC website for a list of frequently asked questions. https://www.cdc.gov/coronavirus/2019-ncov/vaccines/faq.html [facility] [employer] Patient Portal Access Instructions: Stay connected with your healthcare team and access your personal medical information anytime with the [facility] Patient Portal. If you would like a full copy of your medical records please contact the [facility] Medical Records Department Wednesday through Wednesday between 8a.m. and 4:30p.m. Please follow the directions below to access the portal: 1.Access the email account you provided upon registration to the [facility].2.Look for an invitation email from [facility].3.Open the email and access the invitation link: [facility] to [facility]4.Fill in the required aragon to create your account. Sign into [email or web address] with your username and password that you created in the above steps to stay up to date. You can then view a summary of results, a summary of your visits, and the ability to download your summaries to your computer or send the information securely to a physician. Remember that your healthcare information is confidential, so carefully consider who you will allow to register on the [facility] [employer] [facility] Patient Portal for access to your information. You can also access the [facility] Patient Portal on the [employer]. Simply click on Health Records under [employer] and then click on the [facility] logo. HOW TO SAFELY DISPOSE OF PRESCRIPTION MEDICATIONS Please use one of the following methods to safely dispose of your unused medications. 1.Use a drug disposal kit: the drug disposal pouch allows you to safely discard your old and unuseddrugs. Ask your nurse to give you one when you are discharged.2.Visit a local take-back location: Many local pharmacies and police departments have programs that collect old and unwanted prescriptiondrugs. Call your local pharmacy or go to http://bit.[employer]/0N2Kv8r to find one close to you.3.Make use of household items: Use cat litter or old coffee grounds to dispose medications if other options arenot available. Mix your drugs with these household products, seal them in an airtight container andthrow it into the garbage. Call [facility]: [phone] to be sure your drugs can be disposed of in this way. Some medicines may require a different approach.4.Never flush your medications down the toilet. IF YOU HAVE BEEN PRESCRIBED AN OPIOIDS FOR PAIN If you have been prescribed an opioid (such as hydrocodone, oxycodone or morphine), it is critical to understand the possible side effects and risks of opioid pain medications. Even when taken as directed, opioids can have several side effects including: Tolerance, meaning you might need to take more of a medication for the same pain relief. Nausea, vomiting and/or constipation. Sleepiness, dizziness, dry mouth, confusion, depression or itching. Physical dependence, meaning you have withdrawal symptoms when a medication is stopped ? this can develop within a few days. KNOW YOUR RESPONSIBILITIES It is important to know exactly how much and how often to take the opioid pain medications you are prescribed. Never take opioids in higher amounts or more often than prescribed. Do not combine opioids with alcohol or other drugs that cause drowsiness, such as benzodiazepines, also known as benzos,including diazepam and alprazolam, muscle relaxants or sleep aids. Never sell or share prescriptionopioids. This is illegal. Store opioids in a secure place and out of reach of others (including children, family, friends and visitors). The last page(s) of this document has been signed and retained as a CHART COPY Signatures Patient Education Materials Laceration: All Closures Medication Leaflets My discharge plan and instructions have been reviewed and explained to me and I,NIA KIRAN understand my current condition and have read and understand these discharge instructions. I have received a written copy of the plan/instructions. If I have questions, I am aware that I should contact my doctor. Patient/Hoe Runner Signature: Date/Time: Relationship to Patient: Witness Name/Signature: Date/Time: [facility] [id number] Procedure note Date of Service 06/27/2024 18:40:52 Procedure: left index finger laceration repair Indication: left index finger laceration Performing provider: Dr. Martha Swartz Supervising provider: Dr. Agosto Consent: Consent was obtained from the patient prior to the procedure. Indications, risks, and benefits were explained at length. Procedure Summary: After achieving anesthesia with a digital block, irrigation of the laceration was completed with sterile saline. The wound was then repaired. Description of Repair: Size: 2 cm x 1 cm, irregular Numbers of layers: 1 Suture Material: 4-0 nylon Suture number and type: 8 simple interrupted Foreign Body Removal: none Debridement: none Dressing: Sterile dressings were then applied and wound care precautions were given to the patient verbally. Complications: None Digitally Signed by MARTHA SWARTZ MD on 06/27/2024 06:43 PM Digitally Signed by DARRELL AGOSTO MD on 06/27/2024 06:[address] [facility]04-29-2025 NoteHNO ID: [id number] Author: YEN RAHMAN APRN.CNP Service: ? 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 Author Type: Sourcing Associate Type: Progress Notes Filed: 06/07/2024 16:12 Note Text: Scan on 06/02/2024 4:52 PM by Anthony Barnett PA-C: MRI Sheridan Escobedo [facility]04[facility] History of Present illness Narrative* Sheridan Escobedo MA - 06/07/2024 4:12 PM EDT Scan on 06/02/2024 4:52 PM by Anthony Barnett PA-C: MRI Sheridan Escobedo MA' documented in [facility]25 NoteHNO ID: [id number] Author: SHERIDAN ESCOBEDO MA Service: ? Author Type: Sourcing Associate Type: Progress Notes Filed: 05/26/2024 11:27 Note Text: Scan on 05/24/2024 6:27 AM by Anthony Barnett PA-C: Bone Density Patient requested this be sent to Dr. Atul chand. Sheridan Escobedo [facility]03-28-2025 History of Present illness Narrative* Sheridan Escobedo MA - 05/26/2024 11:26 AM EDT Scan on 05/24/2024 6:27 AM by Anthony Barnett PA-C: Bone Density Patient requested this be sent to Dr. Atul chand. Sheridan Escobedo MA documented in [facility]-2025 NoteHNO ID: [id number] Author: MACIE ADRIAN LPN Service: ? Author Type: LICENSED NURSE Type: Progress Notes Filed: 05/02/2024 07:03 Note Text: Scan on 05/01/2024 6:37 PM by Anthony Barnett PA-C: [facility] History of Present illness Narrative* Macie Adrian LPN - 05/02/2024 7:03 AM EST Scan on 05/01/2024 6:37 PM by Provider, LUIS Cruz: Consultation - Orthopedics documented in [facility] Evaluation note* Diagnosis Onset Date Resolution Status Admit Date Degenerative disc disease, lumbar ac farzaneh May 01, 2024 1:07pm Lumbar stenosis with neuroge bridgett claudication acute May 01, 2024 1:07pm [facility] Work Phone: 1(528) 231-936903-03-2025 Evaluation note* Diagnosis Onset Date Resolution Status Admit Date Degenerative disc disease, lumbar acute May 01, 2024 1:07pm Lumbar stenosis with neuroge bridgett claudication acute May 01, 2024 1:07pm Degenerative disc disease, lumbar acute June 06, 2024 12:45pm Lumbar stenosis with neuroge bridgett claudication acute June 06, 2024 12:45pm Scoliosis acute June 06 12:45pm [facility] Work Phone: 1(316) 135-342902-03-2025 History of Present illness Narrative* Marya Jose Mammo Tech - 04/03/2024 12:50 PM EST Radiology Service Progress Note PATIENT NAME: Nia Kiran DATE OF SERVICE: April 03, 2024 TIME: 3:05 PM PATIENT IDENTITY VERIFICATION COMPLETED USING TWO (2) IDENTIFIERS: Name and Date of confirmedby patient verbally. FALL SCREENING: Has the patient had 2 falls in the last year or 1 fall with injury or currently using an Ambulatory Assistive Device (Walker, Cane, Wheelchair, Crutches, etc.)? No PATIENT GENDER DATA: Assigned female at . status: : No status:NO. PATIENT RELEVANT IMPLANT DATA REVIEWED: Not Applicable PATIENT PRESENTS WITH AN IMPLANTABLE OR ATTACHED COMPONENT LAB TECH: No RADIOLOGY DEPARTMENT: Mammography PERIPHERAL IV DATA: Not applicable SIGNED BY: Thom Spear April 03, 2024 3:05 PM documented in [facility] encounterC[facility]-2025 NoteHNO ID: [id number] Author: MARYA JOSE Mammo Tech Service: ? Author Type: Technologist Type: Progress Notes Filed: 04/03/2024 15:05 Note Text: Radiology Service Progress Note PATIENT NAME: Nai Kiran DATE OF SERVICE: April 03, 2024 TIME: 3:05 PM PATIENT IDENTITY VERIFICATION COMPLETED USING TWO (2) IDENTIFIERS: Name and Date of confirmed by patient verbally. FALL SCREENING: Has the patient had 2 falls in the last year or 1 fall with injury or currently using an Ambulatory Assistive Device (Walker, Cane, Wheelchair, Crutches, etc.)? No PATIENT GENDER DATA: Assigned female at . status: : No status: NO. PATIENT RELEVANT IMPLANT DATA REVIEWED: Not Applicable PATIENT PRESENTS WITH AN IMPLANTABLE OR ATTACHED COMPONENT LAB TECH: No RADIOLOGY DEPARTMENT: Mammography PERIPHERAL IV DATA: Not applicable SIGNED BY: Thom Spear April 03, 2024 3:05 [facility]01-28-2025 NoteHNO ID: [id number] Author: MACIE ADRIAN LPN Service: ? Author Type: LICENSED NURSE Type: Progress Notes Filed: 03/28/2024 12:22 Note Text: Scan on 03/28/2024 11:40 AM by ProviderAnthony PA-C: [facility] History of Present illness Narrative* Macie Adrian LPN - 03/28/2024 12:22 PM EST Scan on 03/28/2024 11:40 AM by Anthony Barnett PA-C: Consultation - Anesthesia/Pain documented in [facility] encounterC[facility] Telephone encounter Note * Telephone Encounter - Braulio Urrutia MD - 03/06/2024 11:28 PM EST The following approved medication requests have been transmitted electronically. Requested Prescriptions Signed Prescriptions Disp Refills omeprazole (PRILOSEC) 40 mg capsule 90 capsule 1 Sig: Take 1 capsule by mouth once daily. Authorizing Provider: BRAULIO URRUTIA cyclobenzaprine (FLEXERIL) 10 mg tablet 90 tablet 1 Sig: Take once a day as needed for pain. Authorizing Provider: BRAULIO URRUTIA MD [facility]01-06-2025 Miscellaneous Notes* Telephone Encounter - Braulio Urrutia MD - 03/06/2024 11:28 PM EST The following approved medication requests have been transmitted electronically. Requested Prescriptions Signed Prescriptions Disp Refills omeprazole (PRILOSEC) 40 mg capsule 90 capsule 1 Sig: Take 1 capsule by mouth once daily. Authorizing Provider: BRAULIO URRUTIA cyclobenzaprine (FLEXERIL) 10 mg tablet 90 tablet 1 Sig: Take once a day as needed for pain. Authorizing Provider: BRAULIO URRUTIA MD * Telephone Encounter - Macie Adrian LPN - 03/06/2024 12:03 PM EST Prescription Refill Information The patient has been identified by name and date of : Yes Caregiver verified no other encounters exist for this prescription request: Yes Caregiver confirmed with patient/requestor that no other refills are due, in the near future, with this provider at this time: Yes The last office visit in the department: 02/09/24 Does the patient have a future office visit with this provider/department: Yes Requested Prescriptions Pending Prescriptions Disp Refills omeprazole (PRILOSEC) 40 mg capsule 90 capsule 1 Sig: Take 1 capsule by mouth once daily. cyclobenzaprine (FLEXERIL) 10 mg tablet 90 tablet 1 Sig: Take once a day as needed for pain. Macie Adrian LPN March 06, 2024 12:03 PM [facility] encounter Note * Telephone Encounter - Macie Adrian LPN - 03/06/2024 12:03 PM EST Prescription Refill Information The patient has been identified by name and date of : Yes Caregiver verified no other encounters exist for this prescription request: Yes Caregiver confirmed with patient/requestor that no other refills are due, in the near future, with this provider at this time: Yes The last office visit in the department: 02/09/24 Does the patient have a future office visit with this provider/department: Yes Requested Prescriptions Pending Prescriptions Disp Refills omeprazole (PRILOSEC) 40 mg capsule 90 capsule 1 Sig: Take 1 capsule by mouth once daily. cyclobenzaprine (FLEXERIL) 10 mg tablet 90 tablet 1 Sig: Take once a day as needed for pain. Macie Adrian LPN March 06, 2024 12:03 PM [facility]12-27-[facility]24 Attending History and physical note* Lj Paz DO - 02/25/2024 10:30 AM EST UPDATED PROCEDURAL SEDATION HISTORY AND PHYSICAL EXAMINATION SERVICE DATE: 02/25/2024 SERVICE TIME: 9:51 AM PHYSICAL EXAM MUST BE COMPLETED ON ADMISSION PROCEDURE: Colonoscopy Procedure Indications: Family history of colon cancer The History and Physical (completed in the past 30 days) has been reviewed and the patient has beenexamined. The contents accurately reflect the patient's condition with the following additions or revisions since the H&P was completed. ASA Class: ASA Class: Patient with severe systemic disease Examination indicates no changes. AIRWAY: Airway Visualization of Uvula: Yes Mouth opening greater than 2 fingerbreadths: Yes Neck Full Range of Motion: Yes LUNGS: Lungs clear to auscultation CARDIAC: Regular rhythm,Regular rate Provisional Diagnosis/Treatment Plan: Colonoscopy with possible biopsy Sedation Goal: Anesthesia (MAC) This H&P can be found in the attached. Resp: CTAB CV: RRR SIGNATURE: Lj Paz DO PATIENT NAME: Nia Kiran DATE: February 25, 2024 TIME: 9:51 AM Source Note - Duy Pedroza PA-C - 02/04/2024 1:10 PM EST PREANESTHESIA CONSULT CLINIC TELEHEALTH VISIT Patient has been identified by name and date of : Yes This is a virtual visit using [employer] Zoom Video Visit. It require patient- provider interaction forthe medical decision making as documented below. Reason for contact: PACC visit Accompanied by: Self This is a virtual visit using Virtual Visit (Audio/Visual)I have discussed the nature of this visit with the patient which will occur via Distance Health (Phone, Virtual Visit) and she agrees to proceed with this interaction. It required patient-provider interaction for the medical decision making as documented below. I have communicated my name and active licensure. The patient's identity and physical location wereverified at the time of this visit. Either the patient or their legal school admissions representative has been informed of the risks and benefits of and alternatives to treatment through a remote evaluation and consents to proceed with the evaluation remotely. Scheduled Surgery: COLONOSCOPY Subjective CHIEF COMPLAINT: Patient presents with: Pre-Op Visit HPI: Patient is a 73 year old female here for PACC. Patient has been recommended for screening colonoscopy; last colonoscopy 5 years ago. Denies abdominal pain, diarrhea, constipation, blood in stool. Family history of colon polyps: brother Family history of colon cancer: brother ACTIVE PROBLEM LIST OSTEOARTHRITIS LOCALIZED, PRIMARY( Lower Leg) Hallux valgus (acquired) Other complications due to other internal orthopedic device, implant, and graft Symptomatic Menopausal Or Female Climacteric States Anxiety History of Knee Replacement, Total Constipation Hiatal Hernia Fatty Liver Allergic Rhinitis Overactive Bladder Oa (Osteoarthritis) Gerd (Gastroesophageal Reflux Disease) Insomnia Prolonged Q-T Interval On Ecg Essential Hypertension With Goal Blood Pressure Less Than 140/90 Elevated Fasting Blood Sugar Marcelle (Obstructive Sleep Apnea) Muscle Spasm Family History of Malignant Neoplasm of Gastrointestinal Tract Obesity Rheumatoid Arthritis Involving Multiple Sites With Positive Rheumatoid Factor (Hcc) Other Age-Related Cataract Medication Management Other Skin Changes Hyponatremia Living Will On File At Physician's Office Advance Directive Discussed With Patient Arthritis of Left Shoulder Region Lbbb (Left Bundle Branch Block) Acute Pain of Right Shoulder Spinal Stenosis of Lumbar Region With Neurogenic Claudication Lumbar Radiculopathy Balance Disorder Chronic Pain Syndrome Screening for Colon Cancer PAST MEDICAL HISTORY Diagnosis Date Acute pain of right shoulder 08/21/2022 Seeing Jade Santiago 07/2022 Advance directive discussed with patient 02/04/2022 Discussed 01/2022: up to date Allergic rhinitis 08/31/2013 Anxiety Chronic pain syndrome 05/06/202304/2023 seeing Pain management, Dr. Pollard Common wart 01/21/2009 Constipation COPD (chronic obstructive pulmonary disease) ([facility]) well controlled-managed by PCP Elevated fasting blood sugar 2016 Essential hypertension with goal blood pressure less than 140/90 06/27/2015 well controlled-managed by PCP Family history of malignant neoplasm of gastrointestinal tract Fatty liver Gastroesophageal reflux disease without esophagitis 06/04/2015 Hallux valgus (acquired) 04/12/2008 Hemorrhage of gastrointestinal tract, unspecified Hiatal hernia sliding History of knee replacement, total both Hyponatremia 01/31/2021 Related to Hctz Insomnia 06/04/2015 LBBB (left bundle branch block) 05/29/2022 Living will on file at physician's office 02/04/2022 DPA: Alessandra (daughter) Medicare annual wellness visit, initial 11/04/2017 Medicare Part B: 09/29/2017 last done: 11/04/2018 Medicare annual wellness visit, initial 11/04/2017 Medicare Part B: 09/29/2017 last done: 11/10/2019 Medicare annual wellness visit, subsequent 11/04/2017 Medicare Part B: 09/29/2017 last done: 02/04/2022 Muscle spasm 12/14/2017 Uses prn flexeril OA (osteoarthritis) 08/31/2013 Sees Ortho for Shoulder: Dr. Mahoney Obesity, Class III, BMI 40-49.9 (morbid obesity) ([facility]) 05/04/2018 OSTEOARTHRITIS LOCALIZED, PRIMARY( Lower Leg) 07/22/2005 Other age-related cataract 07/27/[address] Turcios Other complications due to other internal orthopedic device, implant, and graft 07/03/2008 Other skin changes 01/21/[address] Turcios for twice a year skin checks Overactive bladder 08/31/2013 Prolonged Q-T interval on ECG 06/04/2015 Per cardio felt to be prozac related. Rheumatoid arthritis involving multiple sites with positive rheumatoid factor ([facility]) 05/05/[address] Schmidt Severe obstructive sleep apnea 05/24/2017 compliant with CPAP Spinal stenosis of lumbar region with neurogenic claudication 12/15/2022 Symptomatic menopausal or female climacteric states 08/03/2011 PAST SURGICAL HISTORY Procedure Laterality Date ANESTHESIA CLOSED PROCEDURES KNEE JOINT 2006 LEFT ANKLE LEFT ARTHROSCOPY KNEE DIAGNOSTIC W/WO SYNOVIAL BX SPX Left 2006 CARDIAC CATH 05/19/2017 normal coronaries CATARACT EXTRACTION HX Bilateral 07/2018 and 08/2018 COLONOSCOPY FLX DX W/COLLJ SPEC WHEN PFRMD 10/04/2008 COLONOSCOPY FLX DX W/COLLJ SPEC WHEN PFRMD 12/07/2013 Colonoscopy, repeat 5 yrs COLONOSCOPY FLX DX W/COLLJ SPEC WHEN PFRMD 12/05/2018 Colonoscopy CORRECTION OF BUNION 04/2008 Left foot ESOPHAGOGASTRODUODENOSCOPY TRANSORAL DIAGNOSTIC 12/05/2018 EGD PAST SURGICAL HISTORY OF 2009 ligament surgery on both thumbs REPAIR ENTEROCELE,VAG APPRCH 04/18/2019 REPAIR OF RECTOCELE 04/18/2019 ROTATOR CUFF REPAIR 10/2012 left shouldar TOTAL KNEE REPLACEMENT 01/2009 right VAGINAL HYSTERECTOMY UTERUS 250 GM/< 10/2004 WITH TVT FAMILY HISTORY Problem Relation Age of Onset Diabetes Mother Coronary Artery Disease Mother 80's Cancer Father Lung Leukemia Brother No Known Problems Brother Colon Cancer Brother other (Brain Aneurism) Brother other (Other) Brother Accident age 5 No Known Problems Maternal Grandmother No Known Problems Maternal Grandfather No Known Problems Paternal Grandmother No Known Problems Paternal Grandfather No Known Problems Daughter No Known Problems Daughter Blood Disease Daughter Essential Thrombocytosis and Von Willinbers Disease No Known Problems Daughter Social History Tobacco Use Smoking status: Never Smokeless tobacco: Never Vaping Use Vaping status: Never Used Substance Use Topics Alcohol use: Not Currently Comment: Rarely Drug use: Never ALLERGIES Allergen Reactions Morphine Rash And delusions Demerol [Meperidine* Itching Dilaudid [Hydromorp* Itching Percocet [Oxycodone* Unknown Poison Michelle Swelling, Itching, Other: See Comments nausea Vicodin [Hydrocodon* Unknown MEDICATIONS: Current Outpatient Medications Medication Sig montelukast (SINGULAIR) 10 mg tablet Take 1 tablet by mouth daily at bedtime. omeprazole (PRILOSEC) 40 mg capsule Take 1 capsule by mouth once daily. spironolactone (ALDACTONE) 25 mg tablet Take 1 tablet by mouth once daily. zolpidem (AMBIEN) 10 mg Take 1 tablet by mouth at bedtime as needed for up to 180 days. For Insomnia. cyclobenzaprine (FLEXERIL) 10 mg tablet Take once a day as needed for pain. FLUoxetine (PROZAC) 40 mg capsule Take 1 capsule by mouth once daily. lisinopril (ZESTRIL) 10 mg tablet Take 1 tablet by mouth once daily. WALKER ROLLATOR SEAT WITH 6 WHEELS - RED UAD acetaminophen (TYLENOL ARTHRITIS PAIN) 650 mg CR tablet Take 650 mg by mouth every 8 hours as needed. magnesium carb,citrate,oxide (MAGNESIUM COMPLEX ORAL) Take by mouth. Taking 500 mg magnesium melatonin 10 mg cap Take by mouth as directed. meloxicam (MOBIC) 15 mg tablet Take 15 mg by mouth once daily. Last dose 06/16 estrogens conjugated (PREMARIN) 0.625 mg tablet Take 1 tablet by mouth two times a week. hydrOXYchloroQUINE (PLAQUENIL) 200 mg tablet Take 1 tablet by mouth twice daily. Per rheumatology (Patient taking differently: Take 200 mg by mouth two times a day. Last dose 06/16 will check with rheumatology (Dr. Lopez) on 06/08 at appointment) amoxicillin (POLYMOX, AMOXIL) 500 mg capsule Take 4 capsules by mouth as needed. Before dental procedures. mirabegron (MYRBETRIQ) 50 mg Tb24 Take by mouth every morning. LOW-DOSE ASPIRIN ORAL Take 81 mg by mouth once daily. Last dose 06/16 GLUCOSAMINE HCL/CHONDR PACHECO A NA (OSTEO BI-FLEX ORAL) Take by mouth once daily. Last dose 06/10 multivitamins(DAILY MULTIVITAMIN TAB) Take 1 tablet by mouth once daily. Last dose 06/10 ascorbic acid(VITAMIN C 500 MG SR CAP) Take 1,000 mg by mouth once daily. Last dose 06/10 COLACE 100 MG CAP Take by mouth every morning. No current facility-administered medications for this visit. REVIEW OF SYSTEMS: General: No weight loss, malaise or fevers. Neuro: No history of TIA's, stroke, GUT SNATCHER tumor, impaired sensorium, hemiplegia, paraplegia or quadraplegia. No neurological symptoms or problems. Respiratory: Positive for MARCELLE; COPD , Negative for Current cough, Dyspnea, Pneumonia within 6 weeks(date), URI < 2 weeks Cardiovascular: Positive for: Hypertension, Negative for Arrhythmia, CAD, Chest Pain, Valvular Heart Disease, DVT/PE GI: Positive for GERD, Negative for Nausea, Vomiting, Liver disease : +urinary frequency on Myrbetriq Endocrine: No history of diabetes. Has not taken steroids within the past 30 days. No history of endocrinological symptoms or problems. Hematology: Chronic anti-coagulation / platelet meds (Aspirin) Oncology: No history of CA metastasis, chemo within 30 days, or radiotherapy within 90 days. Has not lost 10% of body wt in 6 months. No history of oncological symptoms or problems. Psych: Anxiety, Depression Musculoskeletal: Negative for joint pain or swelling, back pain or muscle pain. Skin: Negative for lesions, rash and itching. Objective PHYSICAL EXAM: Ht 5' 3[pt reported[ (1.60m) Wt 283 lb (128.4kg) BMI 50.14 kg/(m^2). VIDEO EXAM: (if completed, performed via video enabled technology) GENERAL: alert and appropriate, in no distress, well-hydrated, well nourished, happy, smiling, interactive, and overweight EYES: no injection, PERRL, and EOMI OROPHARYNX: moist mucus membranes, no tonsillar hypertrophy/exudate, uvula midline and pharynx non-erythematous, lips, teeth and gums are without obvious lesion NECK: full ROM, no cervical LNs noted RESPIRATORY: breathing non-labored CHEST: equal chest rise with normal respiratory effort HEART: Regular carotid pulse based on tempo of count Diagnostic tests reviewed for today's visit: Lab Value Units Date High Low HB 12.4 g/dL 01/31/2024 15.5 11.5 HCT 37.8 % 01/31/2024 46.0 36.0 WBC 4.33 k/uL 01/31/2024 11.00 3.70 PLT 310 k/uL 01/31/2024 400 150 NA 132 mmol/L 02/02/2024 144 136 K 4.9 mmol/L 02/02/2024 5.1 3.7 GLUC 108 mg/dL 02/02/2024 99 74 BUN 24 mg/dL 02/02/2024 21 7 CREAT 0.92 mg/dL 02/02/2024 0.96 0.58 PTSEC No results within date range. INR No results within date range. APTT No results within date range. ALT 14 U/L 01/31/2024 38 7 AST 17 U/L 01/31/2024 35 13 TBILI 0.2 mg/dL 01/31/2024 1.3 0.2 TSH 3.180 mIU/L 01/31/2024 4.200 0.270 Hemoglobin A1C (%) Date Value 01/31/2024 5.8 08/16/2023 5.8 02/09/2023 5.7 08/05/2022 5.8 05/27/2022 5.8 01/14/2021 5.8 06/05/2020 6.2 10/24/2019 6.3 04/25/2019 6.0 10/21/2018 5.8 EKG Procedure Date : May 27 2022 11:56:25 Edit Date : May 27 2022 18:39:58 Diagnosis: Normal sinus rhythm Incomplete left bundle branch block Borderline ECG No previous ECGs available Confirmed by JONI PAEZ [facility] ([id number]) on 05/27/2022 6:39:54 PM STRESS TEST 06/10/2022 CONCLUSIONS: 1. SPECT Perfusion Study: Normal. 2. There is no scintigraphic evidence for inducible ischemia. 3. No evidence of scarred myocardium. 4. Left ventricle is normal in size. The left ventricle systolic function is normal. 5. Right ventricle is normal in size. The right ventricle systolic function is normal. 6. This is a low risk scan. Gated Stress FBP Gated Rest FBP LVEF % 63 60 Impression/Recommendations ASSESSMENT: Overactive bladder Assessment: managed with Myrbetriq Rheumatoid arthritis involving multiple sites with positive rheumatoid factor (HCC) Assessment: followed by Dr. Lopez, on Plaquenil MARCELLE (obstructive sleep apnea) Assessment: compliant with CPAP Essential hypertension with goal blood pressure less than 140/90 Assessment: managed with medication Last 4 Encounter BP Readings: Date: BP: 11/15/2023 112/72 08/24/2023 122/78 04/01/2023 118/80 02/17/2023 112/76 Obesity Assessment: BMI 50.13 GERD (gastroesophageal reflux disease) Assessment: symptoms controlled per patient with omeprazole METS: Able to walk one block with Rolator Walk a block or two on level ground (2.75 METs) Patient denies any chest pain or undue shortness of breath with the above physical activity. ANESTHESIA FINDINGS: Intubation History: No history of difficult intubation Significant Anesthesia Considerations: None Airway Exam: General: Normal appearance Mallampati Score is CLASS II ULBT: Class II - Lower incisors can bite the upper lip below the laz line Neck: Normal appearance and function, Distance from hyoid to mentum during neck extension is at least 3 finger breaths Mouth: Normal tongue size, Mouth opening greater than 2 finger breaths, and TMJ pain bilaterally, left > right Dentition: Intact, caps on upper front teeth Airway History: No abnormal airway history STOP BANG Score: MARCELLE uses CPAP/BiPAP PLAN: This patient is optimally prepared for surgery. CONSULTS: Patient does not require consults for optimization at this time. The Following Tests/Procedures Have Been Initiated: Labs not indicated per PACC protocol, EKG not indicated per PACC protocol Planned Anesthetic: Per anesthesia choice Instructions Given to Patient: Patient given verbal instructions and voices comprehension and compliance. Copy sent electronically via My Chart, email, or mobile device. I spent a total of 30 minutes on the date of the service which included preparing to see the patient, [id number] patient care, completing clinical documentation, obtaining and/or reviewing separately obtained history, performing a medically appropriate examination, and counseling and educating the patient/family/caregiver This is a virtual visit. It required patient-provider interaction for the medical decision making as documented above. SIGNATURE: Duy Pedroza PA-C PATIENT NAME: Nia Kiran DATE: 02/04/2024 TIME: 1:40 PM PAGER/CONTACT #: [facility]12-27-[facility] History and physical note* Lj Paz, - 02/25/2024 10:30 AM EST UPDATED PROCEDURAL SEDATION HISTORY AND PHYSICAL EXAMINATION SERVICE DATE: 02/25/2024 SERVICE TIME: 9:51 AM PHYSICAL EXAM MUST BE COMPLETED ON ADMISSION PROCEDURE: Colonoscopy Procedure Indications: Family history of colon cancer The History and Physical (completed in the past 30 days) has been reviewed and the patient has beenexamined. The contents accurately reflect the patient's condition with the following additions or revisions since the H&P was completed. ASA Class: ASA Class: Patient with severe systemic disease Examination indicates no changes. AIRWAY: Airway Visualization of Uvula: Yes Mouth opening greater than 2 fingerbreadths: Yes Neck Full Range of Motion: Yes LUNGS: Lungs clear to auscultation CARDIAC: Regular rhythm,Regular rate Provisional Diagnosis/Treatment Plan: Colonoscopy with possible biopsy Sedation Goal: Anesthesia (MAC) This H&P can be found in the attached. Resp: CTAB CV: RRR SIGNATURE: Lj Paz DO PATIENT NAME: Nia Kiran DATE: February 25, 2024 TIME: 9:51 AM Source Note - Duy Pedroza PA-C - 02/04/2024 1:10 PM EST PREANESTHESIA CONSULT CLINIC TELEHEALTH VISIT Patient has been identified by name and date of : Yes This is a virtual visit using [employer] Video Visit. It require patient- provider interaction forthe medical decision making as documented below. Reason for contact: PACC visit Accompanied by: Self This is a virtual visit using Virtual Visit (Audio/Visual)I have discussed the nature of this visit with the patient which will occur via Distance Health (Phone, Virtual Visit) and she agrees to proceed with this interaction. It required patient-provider interaction for the medical decision making as documented below. I have communicated my name and active licensure. The patient's identity and physical location wereverified at the time of this visit. Either the patient or their legal school admissions representative has been informed of the risks and benefits of and alternatives to treatment through a remote evaluation and consents to proceed with the evaluation remotely. Scheduled Surgery: COLONOSCOPY Subjective CHIEF COMPLAINT: Patient presents with: Pre-Op Visit HPI: Patient is a 73 year old female here for PACC. Patient has been recommended for screening colonoscopy; last colonoscopy 5 years ago. Denies abdominal pain, diarrhea, constipation, blood in stool. Family history of colon polyps: brother Family history of colon cancer: brother ACTIVE PROBLEM LIST OSTEOARTHRITIS LOCALIZED, PRIMARY( Lower Leg) Hallux valgus (acquired) Other complications due to other internal orthopedic device, implant, and graft Symptomatic Menopausal Or Female Climacteric States Anxiety History of Knee Replacement, Total Constipation Hiatal Hernia Fatty Liver Allergic Rhinitis Overactive Bladder Oa (Osteoarthritis) Gerd (Gastroesophageal Reflux Disease) Insomnia Prolonged Q-T Interval On Ecg Essential Hypertension With Goal Blood Pressure Less Than 140/90 Elevated Fasting Blood Sugar Marcelle (Obstructive Sleep Apnea) Muscle Spasm Family History of Malignant Neoplasm of Gastrointestinal Tract Obesity Rheumatoid Arthritis Involving Multiple Sites With Positive Rheumatoid Factor ([facility]) Other Age-Related Cataract Medication Management Other Skin Changes Hyponatremia Living Will On File At Physician's Office Advance Directive Discussed With Patient Arthritis of Left Shoulder Region Lbbb (Left Bundle Branch Block) Acute Pain of Right Shoulder Spinal Stenosis of Lumbar Region With Neurogenic Claudication Lumbar Radiculopathy Balance Disorder Chronic Pain Syndrome Screening for Colon Cancer PAST MEDICAL HISTORY Diagnosis Date Acute pain of right shoulder 08/21/2022 Seeing [facility] 07/2022 Advance directive discussed with patient 02/04/2022 Discussed 01/2022: up to date Allergic rhinitis 08/31/2013 Anxiety Chronic pain syndrome 05/06/202304/2023 seeing Pain management, Dr. Atul Shaffer wart 01/21/2009 Constipation COPD (chronic obstructive pulmonary disease) ([facility]) well controlled-managed by PCP Elevated fasting blood sugar 2016 Essential hypertension with goal blood pressure less than 140/90 06/27/2015 well controlled-managed by PCP Family history of malignant neoplasm of gastrointestinal tract Fatty liver Gastroesophageal reflux disease without esophagitis 06/04/2015 Hallux valgus (acquired) 04/12/2008 Hemorrhage of gastrointestinal tract, unspecified Hiatal hernia sliding History of knee replacement, total both Hyponatremia 01/31/2021 Related to Hctz Insomnia 06/04/2015 LBBB (left bundle branch block) 05/29/2022 Living will on file at physician's office 02/04/2022 DPA: Alessandra (daughter) Medicare annual wellness visit, initial 11/04/2017 Medicare Part B: 09/29/2017 last done: 11/04/2018 Medicare annual wellness visit, initial 11/04/2017 Medicare Part B: 09/29/2017 last done: 11/10/2019 Medicare annual wellness visit, subsequent 11/04/2017 Medicare Part B: 09/29/2017 last done: 02/04/2022 Muscle spasm 12/14/2017 Uses prn flexeril OA (osteoarthritis) 08/31/2013 Sees Ortho for Shoulder: Dr. Mahoney Obesity, Class III, BMI 40-49.9 (morbid obesity) ([facility]) 05/04/2018 OSTEOARTHRITIS LOCALIZED, PRIMARY( Lower Leg) 07/22/2005 Other age-related cataract 07/27/[address] Turcios Other complications due to other internal orthopedic device, implant, and graft 07/03/2008 Other skin changes 01/21/[address] Turcios for twice a year skin checks Overactive bladder 08/31/2013 Prolonged Q-T interval on ECG 06/04/2015 Per cardio felt to be prozac related. Rheumatoid arthritis involving multiple sites with positive rheumatoid factor (HCC) 05/05/[address] Schmidt Severe obstructive sleep apnea 05/24/2017 compliant with CPAP Spinal stenosis of lumbar region with neurogenic claudication 12/15/2022 Symptomatic menopausal or female climacteric states 08/03/2011 PAST SURGICAL HISTORY Procedure Laterality Date ANESTHESIA CLOSED PROCEDURES KNEE JOINT 2006 LEFT ANKLE LEFT ARTHROSCOPY KNEE DIAGNOSTIC W/WO SYNOVIAL BX SPX Left 2006 CARDIAC CATH 05/19/2017 normal coronaries CATARACT EXTRACTION HX Bilateral 07/2018 and 08/2018 COLONOSCOPY FLX DX W/COLLJ SPEC WHEN PFRMD 10/04/2008 COLONOSCOPY FLX DX W/COLLJ SPEC WHEN PFRMD 12/07/2013 Colonoscopy, repeat 5 yrs COLONOSCOPY FLX DX W/COLLJ SPEC WHEN PFRMD 12/05/2018 Colonoscopy CORRECTION OF BUNION 04/2008 Left foot ESOPHAGOGASTRODUODENOSCOPY TRANSORAL DIAGNOSTIC 12/05/2018 EGD PAST SURGICAL HISTORY OF 2009 ligament surgery on both thumbs REPAIR ENTEROCELE,VAG APPRCH 04/18/2019 REPAIR OF RECTOCELE 04/18/2019 ROTATOR CUFF REPAIR 10/2012 left shouldar TOTAL KNEE REPLACEMENT 01/2009 right VAGINAL HYSTERECTOMY UTERUS 250 GM/< 10/2004 WITH TVT FAMILY HISTORY Problem Relation Age of Onset Diabetes Mother Coronary Artery Disease Mother 80's Cancer Father Lung Leukemia Brother No Known Problems Brother Colon Cancer Brother other (Brain Aneurism) Brother other (Other) Brother Accident age 5 No Known Problems Maternal Grandmother No Known Problems Maternal Grandfather No Known Problems Paternal Grandmother No Known Problems Paternal Grandfather No Known Problems Daughter No Known Problems Daughter Blood Disease Daughter Essential Thrombocytosis and Von Willinbers Disease No Known Problems Daughter Social History Tobacco Use Smoking status: Never Smokeless tobacco: Never Vaping Use Vaping status: Never Used Substance Use Topics Alcohol use: Not Currently Comment: Rarely Drug use: Never ALLERGIES Allergen Reactions Morphine Rash And delusions Demerol [Meperidine* Itching Dilaudid [Hydromorp* Itching Percocet [Oxycodone* Unknown Poison Michelle Swelling, Itching, Other: See Comments nausea Vicodin [Hydrocodon* Unknown MEDICATIONS: Current Outpatient Medications Medication Sig montelukast (SINGULAIR) 10 mg tablet Take 1 tablet by mouth daily at bedtime. omeprazole (PRILOSEC) 40 mg capsule Take 1 capsule by mouth once daily. spironolactone (ALDACTONE) 25 mg tablet Take 1 tablet by mouth once daily. zolpidem (AMBIEN) 10 mg Take 1 tablet by mouth at bedtime as needed for up to 180 days. For Insomnia. cyclobenzaprine (FLEXERIL) 10 mg tablet Take once a day as needed for pain. FLUoxetine (PROZAC) 40 mg capsule Take 1 capsule by mouth once daily. lisinopril (ZESTRIL) 10 mg tablet Take 1 tablet by mouth once daily. WALKER ROLLATOR SEAT WITH 6 WHEELS - RED UAD acetaminophen (TYLENOL ARTHRITIS PAIN) 650 mg CR tablet Take 650 mg by mouth every 8 hours as needed. magnesium carb,citrate,oxide (MAGNESIUM COMPLEX ORAL) Take by mouth. Taking 500 mg magnesium melatonin 10 mg cap Take by mouth as directed. meloxicam (MOBIC) 15 mg tablet Take 15 mg by mouth once daily. Last dose 06/16 estrogens conjugated (PREMARIN) 0.625 mg tablet Take 1 tablet by mouth two times a week. hydrOXYchloroQUINE (PLAQUENIL) 200 mg tablet Take 1 tablet by mouth twice daily. Per rheumatology (Patient taking differently: Take 200 mg by mouth two times a day. Last dose 06/16 will check with rheumatology (Dr. Lopez) on 06/08 at appointment) amoxicillin (POLYMOX, AMOXIL) 500 mg capsule Take 4 capsules by mouth as needed. Before dental procedures. mirabegron (MYRBETRIQ) 50 mg Tb24 Take by mouth every morning. LOW-DOSE ASPIRIN ORAL Take 81 mg by mouth once daily. Last dose 06/16 GLUCOSAMINE HCL/CHONDR PACHECO A NA (OSTEO BI-FLEX ORAL) Take by mouth once daily. Last dose 06/10 multivitamins(DAILY MULTIVITAMIN TAB) Take 1 tablet by mouth once daily. Last dose 06/10 ascorbic acid(VITAMIN C 500 MG SR CAP) Take 1,000 mg by mouth once daily. Last dose 06/10 COLACE 100 MG CAP Take by mouth every morning. No current facility-administered medications for this visit. REVIEW OF SYSTEMS: General: No weight loss, malaise or fevers. Neuro: No history of TIA's, stroke, GUT SNATCHER tumor, impaired sensorium, hemiplegia, paraplegia or quadraplegia. No neurological symptoms or problems. Respiratory: Positive for MARCELLE; COPD , Negative for Current cough, Dyspnea, Pneumonia within 6 weeks(date), URI < 2 weeks Cardiovascular: Positive for: Hypertension, Negative for Arrhythmia, CAD, Chest Pain, Valvular Heart Disease, DVT/PE GI: Positive for GERD, Negative for Nausea, Vomiting, Liver disease : +urinary frequency on Myrbetriq Endocrine: No history of diabetes. Has not taken steroids within the past 30 days. No history of endocrinological symptoms or problems. Hematology: Chronic anti-coagulation / platelet meds (Aspirin) Oncology: No history of CA metastasis, chemo within 30 days, or radiotherapy within 90 days. Has not lost 10% of body wt in 6 months. No history of oncological symptoms or problems. Psych: Anxiety, Depression Musculoskeletal: Negative for joint pain or swelling, back pain or muscle pain. Skin: Negative for lesions, rash and itching. Objective PHYSICAL EXAM: Ht 5' 3[pt reported[ (1.60m) Wt 283 lb (128.4kg) BMI 50.14 kg/(m^2). VIDEO EXAM: (if completed, performed via video enabled technology) GENERAL: alert and appropriate, in no distress, well-hydrated, well nourished, happy, smiling, interactive, and overweight EYES: no injection, PERRL, and EOMI OROPHARYNX: moist mucus membranes, no tonsillar hypertrophy/exudate, uvula midline and pharynx non-erythematous, lips, teeth and gums are without obvious lesion NECK: full ROM, no cervical LNs noted RESPIRATORY: breathing non-labored CHEST: equal chest rise with normal respiratory effort HEART: Regular carotid pulse based on tempo of count Diagnostic tests reviewed for today's visit: Lab Value Units Date High Low HB 12.4 g/dL 01/31/2024 15.5 11.5 HCT 37.8 % 01/31/2024 46.0 36.0 WBC 4.33 k/uL 01/31/2024 11.00 3.70 PLT 310 k/uL 01/31/2024 400 150 NA 132 mmol/L 02/02/2024 144 136 K 4.9 mmol/L 02/02/2024 5.1 3.7 GLUC 108 mg/dL 02/02/2024 99 74 BUN 24 mg/dL 02/02/2024 21 7 CREAT 0.92 mg/dL 02/02/2024 0.96 0.58 PTSEC No results within date range. INR No results within date range. APTT No results within date range. ALT 14 U/L 01/31/2024 38 7 AST 17 U/L 01/31/2024 35 13 TBILI 0.2 mg/dL 01/31/2024 1.3 0.2 TSH 3.180 mIU/L 01/31/2024 4.200 0.270 Hemoglobin A1C (%) Date Value 01/31/2024 5.8 08/16/2023 5.8 02/09/2023 5.7 08/05/2022 5.8 05/27/2022 5.8 01/14/2021 5.8 06/05/2020 6.2 10/24/2019 6.3 04/25/2019 6.0 10/21/2018 5.8 EKG Procedure Date : May 27 2022 11:56:25 Edit Date : May 27 2022 18:39:58 Diagnosis: Normal sinus rhythm Incomplete left bundle branch block Borderline ECG No previous ECGs available Confirmed by JONI PAEZ, [facility] ([id number]) on 05/27/2022 6:39:54 PM STRESS TEST 06/10/2022 CONCLUSIONS: 1. SPECT Perfusion Study: Normal. 2. There is no scintigraphic evidence for inducible ischemia. 3. No evidence of scarred myocardium. 4. Left ventricle is normal in size. The left ventricle systolic function is normal. 5. Right ventricle is normal in size. The right ventricle systolic function is normal. 6. This is a low risk scan. Gated Stress FBP Gated Rest FBP LVEF % 63 60 Impression/Recommendations ASSESSMENT: Overactive bladder Assessment: managed with Myrbetriq Rheumatoid arthritis involving multiple sites with positive rheumatoid factor (HCC) Assessment: followed by Dr. Lopez, on Plaquenil MARCELLE (obstructive sleep apnea) Assessment: compliant with CPAP Essential hypertension with goal blood pressure less than 140/90 Assessment: managed with medication Last 4 Encounter BP Readings: Date: BP: 11/15/2023 112/72 08/24/2023 122/78 04/01/2023 118/80 02/17/2023 112/76 Obesity Assessment: BMI 50.13 GERD (gastroesophageal reflux disease) Assessment: symptoms controlled per patient with omeprazole METS: Able to walk one block with Rolator Walk a block or two on level ground (2.75 METs) Patient denies any chest pain or undue shortness of breath with the above physical activity. ANESTHESIA FINDINGS: Intubation History: No history of difficult intubation Significant Anesthesia Considerations: None Airway Exam: General: Normal appearance Mallampati Score is CLASS II ULBT: Class II - Lower incisors can bite the upper lip below the laz line Neck: Normal appearance and function, Distance from hyoid to mentum during neck extension is at least 3 finger breaths Mouth: Normal tongue size, Mouth opening greater than 2 finger breaths, and TMJ pain bilaterally, left > right Dentition: Intact, caps on upper front teeth Airway History: No abnormal airway history STOP BANG Score: MARCELLE uses CPAP/BiPAP PLAN: This patient is optimally prepared for surgery. CONSULTS: Patient does not require consults for optimization at this time. The Following Tests/Procedures Have Been Initiated: Labs not indicated per [facility] protocol, EKG not indicated per [facility] protocol Planned Anesthetic: Per anesthesia choice Instructions Given to Patient: Patient given verbal instructions and voices comprehension and compliance. Copy sent electronically via My Chart, email, or mobile device. I spent a total of 30 minutes on the date of the service which included preparing to see the patient, [id number] patient care, completing clinical documentation, obtaining and/or reviewing separately obtained history, performing a medically appropriate examination, and counseling and educating the patient/family/caregiver This is a virtual visit. It required patient-provider interaction for the medical decision making as documented above. SIGNATURE: Duy Pedroza PA-C PATIENT NAME: Nia Kiran DATE: 02/04/2024 TIME: 1:40 PM PAGER/CONTACT #: documented in this encounterC[facility] History of Present illness Narrative* Lj Paz, DO - 02/25/2024 10:30 AM EST PROCEDURAL SEDATION HISTORY AND PHYSICAL EXAM SERVICE DATE: 02/25/2024 SERVICE TIME: 10:47 AM Subjective HPI: This is a 73 year old female who presents for screening colonoscopy for family history of colon cancer (brother). Last colonoscopy 12/05/2018 Findings: The colon (entire examined portion) appeared normal. Impression: - The entire examined colon is normal. - No specimens collected. Recommendation: - Discharge patient to home. - Written discharge instructions were provided to the patient. - Resume previous diet. - Repeat colonoscopy in 5 years for surveillance. - Patient has a contact number available for emergencies. The signs and symptoms of potential delayed complications were discussed with the patient. Return to normal activities tomorrow. Written discharge instructions were provided to the patient. - Continue present medications. PAST ANESTHESIA HISTORY: No history of adverse event PAST MEDICAL HISTORY Diagnosis Date Acute pain of right shoulder 08/21/2022 Seeing Jade Santiago 07/2022 Advance directive discussed with patient 02/04/2022 Discussed 01/2022: up to date Allergic rhinitis 08/31/2013 Anxiety Chronic pain syndrome 05/06/202304/2023 seeing Pain management, Dr. Pollard Common wart 01/21/2009 Constipation COPD (chronic obstructive pulmonary disease) (HCC) well controlled-managed by PCP Elevated fasting blood sugar 2016 Essential hypertension with goal blood pressure less than 140/90 06/27/2015 well controlled-managed by PCP Family history of malignant neoplasm of gastrointestinal tract Fatty liver Gastroesophageal reflux disease without esophagitis 06/04/2015 Hallux valgus (acquired) 04/12/2008 Hemorrhage of gastrointestinal tract, unspecified Hiatal hernia sliding History of knee replacement, total both Hyponatremia 01/31/2021 Related to Hctz Insomnia 06/04/2015 LBBB (left bundle branch block) 05/29/2022 Living will on file at physician's office 02/04/2022 DPA: Alessandra (daughter) Medicare annual wellness visit, initial 11/04/2017 Medicare Part B: 09/29/2017 last done: 11/10/2019 Medicare annual wellness visit, subsequent 11/04/2017 Medicare Part B: 09/29/2017 last done: 02/04/2022 Muscle spasm 12/14/2017 Uses prn flexeril OA (osteoarthritis) 08/31/2013 Sees Ortho for Shoulder: Dr. Mahoney Obesity, Class III, BMI 40-49.9 (morbid obesity) ([facility]) 05/04/2018 OSTEOARTHRITIS LOCALIZED, PRIMARY( Lower Leg) 07/22/2005 Other age-related cataract 07/27/[address] Turcios Other complications due to other internal orthopedic device, implant, and graft 07/03/2008 Other skin changes 01/21/[address] Turcios for twice a year skin checks Overactive bladder 08/31/2013 Prolonged Q-T interval on ECG 06/04/2015 Per cardio felt to be prozac related. Rheumatoid arthritis involving multiple sites with positive rheumatoid factor ([facility]) 05/05/[address] Schmidt Severe obstructive sleep apnea 05/24/2017 compliant with CPAP Spinal stenosis of lumbar region with neurogenic claudication 12/15/2022 Symptomatic menopausal or female climacteric states 08/03/2011 PAST SURGICAL HISTORY Procedure Laterality Date ANESTHESIA CLOSED PROCEDURES KNEE JOINT 2005 LEFT ANKLE LEFT ARTHROSCOPY KNEE DIAGNOSTIC W/WO SYNOVIAL BX SPX Left 2006 CARDIAC CATH 05/19/2017 normal coronaries CATARACT EXTRACTION HX Bilateral 07/2018 and 08/2018 COLONOSCOPY FLX DX W/COLLJ SPEC WHEN PFRMD 10/04/2008 COLONOSCOPY FLX DX W/COLLJ SPEC WHEN PFRMD 12/07/2013 Colonoscopy, repeat 5 yrs COLONOSCOPY FLX DX W/COLLJ SPEC WHEN PFRMD 12/05/2018 Colonoscopy CORRECTION OF BUNION 04/2008 Left foot ESOPHAGOGASTRODUODENOSCOPY TRANSORAL DIAGNOSTIC 12/05/2018 EGD PAST SURGICAL HISTORY OF 2009 ligament surgery on both thumbs REPAIR ENTEROCELE,VAG APPRCH 04/18/2019 REPAIR OF RECTOCELE 04/18/2019 ROTATOR CUFF REPAIR 10/2012 left shouldar TOTAL KNEE REPLACEMENT 01/2009 right VAGINAL HYSTERECTOMY UTERUS 250 GM/< 10/2004 WITH TVT Prior to Admission medications as of 02/25/24 0957 Medication Sig Last Dose Taking FLUoxetine (PROZAC) 40 mg capsule Take 1 capsule by mouth once daily. 02/25/2024 Yes lisinopril (ZESTRIL) 10 mg tablet Take 1 tablet by mouth once daily. 02/25/2024 Yes montelukast (SINGULAIR) 10 mg tablet Take 1 tablet by mouth daily at bedtime. 02/24/2024 Yes spironolactone (ALDACTONE) 25 mg tablet Take 1 tablet by mouth once daily. 02/24/2024 Yes omeprazole (PRILOSEC) 40 mg capsule Take 1 capsule by mouth once daily. 02/25/2024 Yes cyclobenzaprine (FLEXERIL) 10 mg tablet Take once a day as needed for pain. 02/25/2024 at 0730 Yes melatonin 10 mg cap Take by mouth as directed. 02/24/2024 Yes meloxicam (MOBIC) 15 mg tablet Take 15 mg by mouth once daily. Last dose 06/1602/24/2024 Yes hydrOXYchloroQUINE (PLAQUENIL) 200 mg tablet Take 1 tablet by mouth twice daily. Per rheumatology Patient taking differently: Take 200 mg by mouth two times a day. Last dose 06/16 will check with rheumatology (Dr. Lopez) on 06/08 at appointment 02/25/2024 Yes mirabegron (MYRBETRIQ) 50 mg Tb24 Take by mouth every morning. 02/24/2024 Yes zolpidem (AMBIEN) 10 mg Take 1 tablet by mouth at bedtime as needed for up to 180 days. For Insomnia. 02/18/2024 WALKER ROLLATOR SEAT WITH 6 WHEELS - RED UAD Unknown acetaminophen (TYLENOL ARTHRITIS PAIN) 650 mg CR tablet Take 650 mg by mouth every 8 hours as needed. 02/21/2024 magnesium carb,citrate,oxide (MAGNESIUM COMPLEX ORAL) Take by mouth. Taking 500 mg magnesium 02/18/2024 estrogens conjugated (PREMARIN) 0.625 mg tablet Take 1 tablet by mouth two times a week. 02/23/2024 amoxicillin (POLYMOX, AMOXIL) 500 mg capsule Take 4 capsules by mouth as needed. Before dental procedures. 02/14/2024 LOW-DOSE ASPIRIN ORAL Take 81 mg by mouth once daily. Last dose 06/1602/18/2024 GLUCOSAMINE HCL/CHONDR PACHECO A NA (OSTEO BI-FLEX ORAL) Take by mouth once daily. Last dose 06/1002/18/2024 multivitamins(DAILY MULTIVITAMIN TAB) Take 1 tablet by mouth once daily. Last dose 06/1002/18/2024 ascorbic acid(VITAMIN C 500 MG SR CAP) Take 1,000 mg by mouth once daily. Last dose 06/1002/18/2024 COLACE 100 MG CAP Take by mouth every morning. 02/18/2024 ALLERGIES Allergen Reactions Morphine Rash And delusions Demerol [Meperidine* Itching Dilaudid [Hydromorp* Itching Percocet [Oxycodone* Unknown Poison Michelle Swelling, Itching, Other: See Comments nausea Vicodin [Hydrocodon* Unknown Objective PHYSICAL EXAM: The remainder of the physical exam is noncontributory. AIRWAY: Airway Visualization of Uvula: Yes Mouth opening greater than 2 fingerbreadths: Yes Neck Full Range of Motion: Yes LUNGS: Lungs clear to auscultation CARDIAC: Regular rhythm,Regular rate Assessment/Plan ASA Class: ASA Class: Patient with severe systemic disease Active Problems: * No active hospital problems. * Resolved Problems: * No resolved hospital problems. * Morbid Obesity Class 3 Medication and Non-Pharmacologic VTE Prophylaxis/Anticoagulants VTE Prophylaxis: NA Provisional Diagnosis/Treatment Plan: Colonoscopy with possible biopsy Sedation Goal: Anesthesia (MAC) SIGNATURE: Lj Paz DO PATIENT NAME: Nia iKran DATE: February 24, 2024 TIME: 4:52 PM documented in this encounterC[facility]12[facility] NoteHNO ID: [id number] Author: LJ PAZ DO Service: General Surgery Author Type: Physician Type: Progress Notes Filed: 02/25/2024 10:47 Note Text: PROCEDURAL SEDATION HISTORY AND PHYSICAL EXAM SERVICE DATE: 02/25/2024 SERVICE TIME: 10:47 AM Subjective HPI: This is a 73 year old female who presents for screening colonoscopy for family history of colon cancer (brother). Last colonoscopy 12/05/2018 Findings: The colon (entire examined portion) appeared normal. Impression: - The entire examined colon is normal. - No specimens collected. Recommendation: - Discharge patient to home. - Written discharge instructions were provided to the patient. - Resume previous diet. - Repeat colonoscopy in 5 years for surveillance. - Patient has a contact number available for emergencies. The signs and symptoms of potential delayed complications were discussed with the patient. Return to normal activities tomorrow. Written discharge instructions were provided to the patient. - Continue present medications. PAST ANESTHESIA HISTORY: No history of adverse event PAST MEDICAL HISTORY Diagnosis Date Acute pain of right shoulder 08/21/2022 Seeing Jade Santiago 07/2022 Advance directive discussed with patient 02/04/2022 Discussed 01/2022: up to date Allergic rhinitis 08/31/2013 Anxiety Chronic pain syndrome 05/06/202304/2023 seeing Pain management, Dr. Pollard Common wart 01/21/2009 Constipation COPD (chronic obstructive pulmonary disease) ([facility]) well controlled-managed by PCP Elevated fasting blood sugar 2016 Essential hypertension with goal blood pressure less than 140/90 06/27/2015 well controlled-managed by PCP Family history of malignant neoplasm of gastrointestinal tract Fatty liver Gastroesophageal reflux disease without esophagitis 06/04/2015 Hallux valgus (acquired) 04/12/2008 Hemorrhage of gastrointestinal tract, unspecified Hiatal hernia sliding History of knee replacement, total both Hyponatremia 01/31/2021 Related to Hctz Insomnia 06/04/2015 LBBB (left bundle branch block) 05/29/2022 Living will on file at physician's office 02/04/2022 DPA: Alessandra (daughter) Medicare annual wellness visit, initial 11/04/2017 Medicare Part B: 09/29/2017 last done: 11/10/2019 Medicare annual wellness visit, subsequent 11/04/2017 Medicare Part B: 09/29/2017 last done: 02/04/2022 Muscle spasm 12/14/2017 Uses prn flexeril OA (osteoarthritis) 08/31/2013 Sees Ortho for Shoulder: Dr. Mahoney Obesity, Class III, BMI 40-49.9 (morbid obesity) ([facility]) 05/04/2018 OSTEOARTHRITIS LOCALIZED, PRIMARY( Lower Leg) 07/22/2005 Other age-related cataract 07/27/[address] Turcios Other complications due to other internal orthopedic device, implant, and graft 07/03/2008 Other skin changes 01/21/[address] Turcios for twice a year skin checks Overactive bladder 08/31/2013 Prolonged Q-T interval on ECG 06/04/2015 Per cardio felt to be prozac related. Rheumatoid arthritis involving multiple sites with positive rheumatoid factor ([facility]) 05/05/[address] Schmidt Severe obstructive sleep apnea 05/24/2017 compliant with CPAP Spinal stenosis of lumbar region with neurogenic claudication 12/15/2022 Symptomatic menopausal or female climacteric states 08/03/2011 PAST SURGICAL HISTORY Procedure Laterality Date ANESTHESIA CLOSED PROCEDURES KNEE JOINT 2006 LEFT ANKLE LEFT ARTHROSCOPY KNEE DIAGNOSTIC W/WO SYNOVIAL BX SPX Left 2006 CARDIAC CATH 05/19/2017 normal coronaries CATARACT EXTRACTION HX Bilateral 07/2018 and 08/2018 COLONOSCOPY FLX DX W/COLLJ SPEC WHEN PFRMD 10/04/2008 COLONOSCOPY FLX DX W/COLLJ SPEC WHEN PFRMD 12/07/2013 Colonoscopy, repeat 5 yrs COLONOSCOPY FLX DX W/COLLJ SPEC WHEN PFRMD 12/05/2018 Colonoscopy CORRECTION OF BUNION 04/2008 Left foot ESOPHAGOGASTRODUODENOSCOPY TRANSORAL DIAGNOSTIC 12/05/2018 EGD PAST SURGICAL HISTORY OF 2009 ligament surgery on both thumbs REPAIR ENTEROCELE,VAG APPRCH 04/18/2019 REPAIR OF RECTOCELE 04/18/2019 ROTATOR CUFF REPAIR 10/2012 left shouldar TOTAL KNEE REPLACEMENT 01/2009 right VAGINAL HYSTERECTOMY UTERUS 250 GM/< 10/2004 WITH TVT Prior to Admission medications as of 02/25/24 0957 Medication Sig Last Dose Taking FLUoxetine (PROZAC) 40 mg capsule Take 1 capsule by mouth once daily. 02/25/2024 Yes lisinopril (ZESTRIL) 10 mg tablet Take 1 tablet by mouth once daily. 02/25/2024 Yes montelukast (SINGULAIR) 10 mg tablet Take 1 tablet by mouth daily at bedtime. 02/24/2024 Yes spironolactone (ALDACTONE) 25 mg tablet Take 1 tablet by mouth once daily. 02/24/2024 Yes omeprazole (PRILOSEC) 40 mg capsule Take 1 capsule by mouth once daily. 02/25/2024 Yes cyclobenzaprine (FLEXERIL) 10 mg tablet Take once a day as needed for pain. 02/25/2024 at 0730 Yes melatonin 10 mg cap Take by mouth as directed. 02/24/2024 Yes meloxicam (MOBIC) 15 mg tablet T (more content not included)...[facility] 02-09-2024 Instructions* Patient Instructions* Braulio Urrutia MD - 02/09/2024 1:07 PM EST Please get labs done on or after 07/29/2023 prior to your next visit. Screening schedule The following prevention plan is recommended: Depression Screening Never done Advance Directive Discussion due on 03/01/2023 Influenza Vaccine(1) due on 10/31/2023 Covid-19 Vaccine( season) due on 10/31/2023 Colorectal Cancer Screening due on 12/06/2023 Mammogram Screening due on 04/01/2024 WHAT YOU CAN DO TO PREVENT FALLS Many falls can be prevented. By making some changes, you can lower your chances of falling. Four things YOU can do to prevent falls for you* and your caregiver 1. Begin a regular exercise program Exercise is one of the most important ways to lower your chances of falling. It makes you stronger and helps you feel better. Exercises that improve balance and coordination (like Rajendra Chi) are the most helpful. Lack of exercise leads to weakness and increases your chances of falling. Ask your doctor or health care provider about the best type of exercise program for you. 2. Have your health care provider review your medicines Have your doctor or pharmacist review all the medicines you take, even aeel-tss-rbsyspj medicines. As you get older, the way medicines work in your body can change. Some medicines, or combinations of medicines, can make you sleepy or dizzy andcan cause you to fall. 3. Have your vision checked Have your eyes checked by an eye doctor at least once a year. You may be wearing the wrong glasses or have a condition like glaucoma or cataracts that limits your vision. Poor vision can increase your chances of falling. 4. Make your home safer About half of all falls happen at home. To make your home safer: Remove things you can trip over (like papers, books, clothes, and shoes) from stairs and places where you walk. Remove small throw rugs or use double-sided tape to keep the rugs from slipping. Keep items you use often in cabinets you can reach easily without using a step stool. Have grab bars put in next to your toilet and in the tub or shower. Use non-slip mats in the bathtub and on shower floors. Improve the lighting in your home. As you get older, you need brighter lights to see well. Hang light-weight curtains or shades to reduce glare. Have handrails and lights put in on all staircases. Wear shoes both inside and outside the house. Avoid going barefoot or wearing slippers. For more information, contact: Centers for Disease Control and Prevention www.cdc.gov/injury * This information may not apply if you have certain medical conditions. documented in this encounterC[facility]12-11-[facility]24 History of Present illness Narrative* Braulio Urrutia MD - 02/09/2024 1:00 PM EST Images from the original note were not included. Nia Kiran is a 73 year old female here for a Medicare wellness visit. Medicare Health Risk Assessment General Health Good Exercise: Minutes/Day 10 min Exercise: Days/Week 0 days Alcohol: Daily Use Never Alcohol: Drinks/Day Patient does not drink Alcohol: 6 or more drinks Never Feel off balance No Concerns: Teeth/Dentures No Concerns: Sexual function No Troubled by feelings None of the above Frequency: Eating healthy diet Several days ADLs requiring help None of the above Safety precautions in home/vehicle Yes Smoke, vape, chews tobacco No Difficulty hearing No Difficulty seeing No Current Providers Specialists: I have reviewed specialist-related care of the patient in the medical record. Dr. Lopez: Sandra Suero Astor: OB Dr. Pollard: pain management. Medical/Family history review Reviewed and updated problem list, medical/surgical/family/social history, medications, and allergies. Opioid use review Opioid Medications (last 90 days) No data to display Anxiety/Depression screening PHQ-9 Score: 0 . CAROL-7 Score: 0 . Recommendation: no further intervention at this time Cognitive screening Score: 5 Cognitive screening reviewed and No further action needed (score 3-5). Functional Observation Was the patient's Timed Up & Go test unsteady or >= 12 seconds? No Advance Care Planning Surrogate decision maker documented and/or advance directives scanned in chart Measurements BP 116/76 Pulse 76 Resp 16 Ht 160 cm (5' 3) Wt 129.7 kg (286 lb) BMI 50.66 kg/m Vision Screening: Follows with optometry/ophthalmology Assessment/Plan Medicare annual wellness visit, subsequent (Z00.00) - Counseled on healthy diet and regular exercise - Fall avoidance information provided - Personalized prevention plan provided See below Chief Complaint Patient presents with: Medicare Wellness Exam HPI Nia Kiran is a 73 year old female who presents here today for Chronic Medical Conditions. and Medicare Annual Visit. Patient with HTN, MARCELLE, constipation, Insomnia, elevated glucose, RA, OA, and those as below. Patient sees MAIL ORDER BILLER last visit 04/[address] Pollard - pain management Patient has been doing well no new issues or concerns. Past medical history, appointments, medications, allergies reviewed. Previous Medical History PAST MEDICAL HISTORY Diagnosis Date Acute pain of right shoulder 08/21/2022 Seeing [facility] 07/2022 Advance directive discussed with patient 02/04/2022 Discussed 01/2022: up to date Allergic rhinitis 08/31/2013 Anxiety Chronic pain syndrome 05/06/202304/2023 seeing Pain management, Dr. Pollard Common wart 01/21/2009 Constipation COPD (chronic obstructive pulmonary disease) ([facility]) well controlled-managed by PCP Elevated fasting blood sugar 2016 Essential hypertension with goal blood pressure less than 140/90 06/27/2015 well controlled-managed by PCP Family history of malignant neoplasm of gastrointestinal tract Fatty liver Gastroesophageal reflux disease without esophagitis 06/04/2015 Hallux valgus (acquired) 04/12/2008 Hemorrhage of gastrointestinal tract, unspecified Hiatal hernia sliding History of knee replacement, total both Hyponatremia 01/31/2021 Related to Hctz Insomnia 06/04/2015 LBBB (left bundle branch block) 05/29/2022 Living will on file at physician's office 02/04/2022 DPA: Alessandra (daughter) Medicare annual wellness visit, initial 11/04/2017 Medicare Part B: 09/29/2017 last done: 11/04/2018 Medicare annual wellness visit, initial 11/04/2017 Medicare Part B: 09/29/2017 last done: 11/10/2019 Medicare annual wellness visit, subsequent 11/04/2017 Medicare Part B: 09/29/2017 last done: 02/04/2022 Muscle spasm 12/14/2017 Uses prn flexeril OA (osteoarthritis) 08/31/2013 Sees Ortho for Shoulder: Dr. Mahoney Obesity, Class III, BMI 40-49.9 (morbid obesity) (HCC) 05/04/2018 OSTEOARTHRITIS LOCALIZED, PRIMARY( Lower Leg) 07/22/2005 Other age-related cataract 07/27/[address] Turcios Other complications due to other internal orthopedic device, implant, and graft 07/03/2008 Other skin changes 01/21/[address] Turcios for twice a year skin checks Overactive bladder 08/31/2013 Prolonged Q-T interval on ECG 06/04/2015 Per cardio felt to be prozac related. Rheumatoid arthritis involving multiple sites with positive rheumatoid factor (HCC) 05/05/[address] Schmidt Severe obstructive sleep apnea 05/24/2017 compliant with CPAP Spinal stenosis of lumbar region with neurogenic claudication 12/15/2022 Symptomatic menopausal or female climacteric states 08/03/2011 Previous Surgical History PAST SURGICAL HISTORY Procedure Laterality Date ANESTHESIA CLOSED PROCEDURES KNEE JOINT 2006 LEFT ANKLE LEFT ARTHROSCOPY KNEE DIAGNOSTIC W/WO SYNOVIAL BX SPX Left 2006 CARDIAC CATH 05/19/2017 normal coronaries CATARACT EXTRACTION HX Bilateral 07/2018 and 08/2018 COLONOSCOPY FLX DX W/COLLJ SPEC WHEN PFRMD 10/04/2008 COLONOSCOPY FLX DX W/COLLJ SPEC WHEN PFRMD 12/07/2013 Colonoscopy, repeat 5 yrs COLONOSCOPY FLX DX W/COLLJ SPEC WHEN PFRMD 12/05/2018 Colonoscopy CORRECTION OF BUNION 04/2008 Left foot ESOPHAGOGASTRODUODENOSCOPY TRANSORAL DIAGNOSTIC 12/05/2018 EGD PAST SURGICAL HISTORY OF 2009 ligament surgery on both thumbs REPAIR ENTEROCELE,VAG APPRCH 04/18/2019 REPAIR OF RECTOCELE 04/18/2019 ROTATOR CUFF REPAIR 10/2012 left shouldar TOTAL KNEE REPLACEMENT 01/2009 right VAGINAL HYSTERECTOMY UTERUS 250 GM/< 10/2004 WITH TVT Family History FAMILY HISTORY Problem Relation Age of Onset Diabetes Mother Coronary Artery Disease Mother 80's Cancer Father Lung Leukemia Brother No Known Problems Brother Colon Cancer Brother other (Brain Aneurism) Brother other (Other) Brother Accident age 5 No Known Problems Maternal Grandmother No Known Problems Maternal Grandfather No Known Problems Paternal Grandmother No Known Problems Paternal Grandfather No Known Problems Daughter No Known Problems Daughter Blood Disease Daughter Essential Thrombocytosis and Von Willinbers Disease No Known Problems Daughter Patient Allergies ALLERGIES Allergen Reactions Morphine Rash And delusions Demerol [Meperidine* Itching Dilaudid [Hydromorp* Itching Percocet [Oxycodone* Unknown Poison Michelle Swelling, Itching, Other: See Comments nausea Vicodin [Hydrocodon* Unknown Current Medications Current Outpatient Medications on File Prior to Visit Medication Sig montelukast (SINGULAIR) 10 mg tablet Take 1 tablet by mouth daily at bedtime. omeprazole (PRILOSEC) 40 mg capsule Take 1 capsule by mouth once daily. spironolactone (ALDACTONE) 25 mg tablet Take 1 tablet by mouth once daily. zolpidem (AMBIEN) 10 mg Take 1 tablet by mouth at bedtime as needed for up to 180 days. For Insomnia. cyclobenzaprine (FLEXERIL) 10 mg tablet Take once a day as needed for pain. FLUoxetine (PROZAC) 40 mg capsule Take 1 capsule by mouth once daily. lisinopril (ZESTRIL) 10 mg tablet Take 1 tablet by mouth once daily. WALKER ROLLATOR SEAT WITH 6 WHEELS - RED UAD acetaminophen (TYLENOL ARTHRITIS PAIN) 650 mg CR tablet Take 650 mg by mouth every 8 hours as needed. magnesium carb,citrate,oxide (MAGNESIUM COMPLEX ORAL) Take by mouth. Taking 500 mg magnesium melatonin 10 mg cap Take by mouth as directed. meloxicam (MOBIC) 15 mg tablet Take 15 mg by mouth once daily. Last dose 06/16 estrogens conjugated (PREMARIN) 0.625 mg tablet Take 1 tablet by mouth two times a week. hydrOXYchloroQUINE (PLAQUENIL) 200 mg tablet Take 1 tablet by mouth twice daily. Per rheumatology (Patient taking differently: Take 200 mg by mouth two times a day. Last dose 06/16 will check with rheumatology (Dr. Lopez) on 06/08 at appointment) amoxicillin (POLYMOX, AMOXIL) 500 mg capsule Take 4 capsules by mouth as needed. Before dental procedures. mirabegron (MYRBETRIQ) 50 mg Tb24 Take by mouth every morning. LOW-DOSE ASPIRIN ORAL Take 81 mg by mouth once daily. Last dose 06/16 GLUCOSAMINE HCL/CHONDR PACHECO A NA (OSTEO BI-FLEX ORAL) Take by mouth once daily. Last dose 06/10 multivitamins(DAILY MULTIVITAMIN TAB) Take 1 tablet by mouth once daily. Last dose 06/10 ascorbic acid(VITAMIN C 500 MG SR CAP) Take 1,000 mg by mouth once daily. Last dose 06/10 COLACE 100 MG CAP Take by mouth every morning. No current facility-administered medications on file prior to visit. Social History Social History Tobacco Use Smoking status: Never Smokeless tobacco: Never Vaping Use Vaping status: Never Used Substance Use Topics Alcohol use: Not Currently Comment: Rarely Drug use: Never Review of Symptoms REVIEW OF SYSTEMS GENERAL: No weight loss, malaise or fevers HEENT: Negative for frequent or significant headaches, No changes in hearing or vision, no nose bleeds or other nasal problems NECK: Negative for lumps, goiter, pain and significant neck swelling CARDIOVASCULAR: Negative for chest pain, leg swelling, hypertension, CHF or palpitations GI: No nausea, vomiting, or diarrhea, No heartburn or reflux symptoms, and no blood : No history of dysuria, frequency or blood MUSCULOSKELETAL: Negative for new or changes in her typical joint pain or swelling, back pain or muscle pain SKIN: sees Derm PSYCH: Negative for sleep disturbance, mood disorder and recent psychosocial stressors HEMATOLOGY/LYMPHOLOGY: Negative for prolonged bleeding, bruising easily or swollen nodes ENDOCRINE: Negative for cold or heat intolerance, polyuria, polydipsia and goiter NEURO: No history of headaches, syncope, paralysis, seizures or tremors EXAM: BP 116/76 Pulse 76 Resp 16 Ht 160 cm (5' 3) Wt 129.7 kg (286 lb) BMI 50.66 kg/m Last 5 Encounter Wt Readings: Date: Wt: 02/09/2024 129.7 kg (286 lb) 02/04/2024 128.4 kg (283 lb) 11/15/2023 130.6 kg (288 lb) 08/24/2023 131.1 kg (289 lb) 04/01/2023 130.2 kg (287 lb) General Appearance: Well appearing, alert, in no acute distress, well-hydrated, well nourished. andMorbidly obese. Head: Normocephalic, no masses, lesions, tenderness or abnormalities. Eyes: Anicteric sclera. Pupils are equally round and reactive to light. Extraocular movements are intact. . Ears: External ears normal, canals clear. Nose/Sinuses: Nares normal, septum midline, mucosa normal, no drainage or sinus tenderness. Oropharynx: Lips, mucosa, and tongue normal, teeth and gums normal, oropharynx normal. Neck: Supple, no adenopathy; thyroid symmetric, normal size, no bruits. Lungs: Lungs clear to auscultation. No wheezing, rhonchi, rales.. Heart: RRR without murmur, gallop, or rubs. No ectopy. Abdomen: Normal abdominal exam, Abdomen soft, non-tender. Bowel sounds normal. No masses, organomegaly. Extremities: No deformities, edema, skin discoloration, Good capillary refill. . Musculoskeletal: Muscular strength intact, No joint swelling, deformity, or tenderness. Peripheral Pulses: Normal. Neurologic: Gait normal. Reflexes normal and symmetric. Sensation to light touch and crainal nerves2-12 intact.. Health Maintenance List Depression Screening Never done Advance Directive Discussion due on 03/01/2023 Influenza Vaccine(1) due on 10/31/2023 Covid-19 Vaccine( season) due on 10/31/2023 Colorectal Cancer Screening due on 12/06/2023 Mammogram Screening due on 04/01/2024 DTaP,Tdap,Td Vaccine(1 - Tdap) due on 02/18/2024 RSV Vaccine(1 - Risk 60-74 years 1-dose series) due on 02/18/2024 Annual PCP Team Chronic Disease Visit due on 08/23/2024 BP Controlled (<130/80) due on 11/14/2024 Diabetes Screening due on 02/01/2027 Lipid Screening due on 01/30/2029 Bone Density Screening Completed Hepatitis C Screening Completed Shingrix Vaccine Completed Pneumococcal Vaccine: 65+ Completed Data reviewed Latest Ref Rng 02/09/2023 08/16/2023 01/31/2024 02/01/2024 02/02/2024 WBC 3.70 - 11.00 k/uL 4.33 RBC 3.90 - 5.20 m/uL 3.62 (L) Hemoglobin 11.5 - 15.5 g/dL 12.4 Hematocrit 36.0 - 46.0 % 37.8 MCV 80.0 - 100.0 fL 104.4 (H) MCH 26.0 - 34.0 pg 34.3 (H) MCHC 30.5 - 36.0 g/dL 32.8 RDW-CV 11.5 - 15.0 % 11.9 Platelet Count 150 - 400 k/uL 310 MPV 9.0 - 12.7 fL 9.4 Neut% % 63.5 Abs Neut (ANC) 1.45 - 7.50 k/uL 2.75 Lymph% % 24.5 Abs Lymph 1.00 - 4.00 k/uL 1.06 Drew% % 8.1 Abs Drew <0.87 k/uL 0.35 Eosin% % 2.5 Abs Eosin <0.46 k/uL 0.11 Baso% % 1.2 Abs Baso <0.11 k/uL 0.05 Immature Gran % % 0.2 IMMATURE GRANS (ABS) <0.10 k/uL <0.03 NRBC /100 WBC 0.0 Absolute nRBC <0.01 k/uL <0.01 DTYPE Auto Color Yellow Yellow Yellow Clarity Clear Clear Clear Glucose, Urine Negative Negative Negative Bilirubin, Urine Negative Negative Negative Ketones, Urine Negative Negative Negative Specific [place], Ur 1.005 - 1.030 1.008 1.014 Hemoglobin/Blood,Ur Negative Negative Negative pH, Urine <8.5 6.0 6.0 Protein, Urine Negative Negative Negative Urobilinogen 0.2-1.0 EU/dL 0.2 EU/dL 0.2 EU/dL Nitrites Negative Negative Positive ! Leukest Negative Trace ! 2+ ! WBC, Urine 0-5 /HPF 0-5 /HPF >20 /HPF ! RBC, Urine 0-2 /HPF 0-2 /HPF 0-2 /HPF Bacteria Negative /HPF Negative Epithelial Cells /HPF None Seen None Seen Hyaline Cast 0 /LPF 1-3 /LPF ! 0 /LPF Bacteria uL Negative uL >9,821 (H) Protein, Total 6.3 - 8.0 g/dL 7.3 6.9 Albumin 3.9 - 4.9 g/dL 4.5 3.9 Calcium 8.5 - 10.2 mg/dL 9.1 9.3 9.0 9.4 Bilirubin, Total 0.2 - 1.3 mg/dL 0.3 0.2 Alkaline Phosphatase 34 - 123 U/L 75 68 AST 13 - 35 U/L 29 17 ALT 7 - 38 U/L 23 14 Glucose 74 - 99 mg/dL 95 112 (H) 126 (H) 108 (H) BUN 7 - 21 mg/dL 17 17 19 24 (H) Creatinine 0.58 - 0.96 mg/dL 0.95 1.01 (H) 1.04 (H) 0.92 Sodium 136 - 144 mmol/L 134 (L) 135 (L) 132 (L) 132 (L) Potassium 3.7 - 5.1 mmol/L 4.2 4.8 5.3 (H) 4.9 Chloride 98 - 107 mmol/L 97 100 97 (L) 98 CO2 22 - 30 mmol/L 25 26 25 23 Anion Gap 8 - 15 mmol/L 12 9 10 11 eGFR >=60 mL/min/1.73m 65 60 58 (L) 67 Total Cholesterol, Nonfasting <200 mg/dL 212 (H) 197 188 Triglycerides, Nonfasting <150 mg/dL 84 115 88 HDL Cholesterol, Nonfasting >39 mg/dL 76 70 68 LDL Cholesterol, Nonfasting <100 mg/dL 119 (H) 104 (H) 102 (H) Non HDL Cholesterol, Nonfasting <130 mg/dL 136 (H) 127 120 VLDL Cholesterol, Nonfasting <30 mg/dL 17 23 18 Total Chol/HDL Ratio, Nonfasting <5.10 mg/dL 2.79 2.81 2.76 LDL/HDL Ratio, Nonfasting <2.54 mg/dL 1.57 1.49 1.50 Hemoglobin A1C 4.3 - 5.6 % 5.7 (H) 5.8 (H) 5.8 (H) Estimated Average Glucose mg/dL 117 120 120 Vitamin B12 232 - 1,245 pg/mL 945 841 Magnesium 1.7 - 2.3 mg/dL 2.2 2.3 TSH 0.270 - 4.200 mIU/L 3.180 A/P ASSESSMENT/PLAN: 1. Medicare annual wellness visit, subsequent - ICD9: V70.0, ICD10: Z00.00 (primary diagnosis) - Counseled on healthy diet and regular exercise - Discussed need and benefit for weight loss. BMI 50.66 kg/(m^2) - Follow up for annual exam in one year 2. Advance directive discussed with patient - ICD9: V65.49, ICD10: Z71.89 - up to date 3. Essential hypertension with goal blood pressure less than 140/90 - ICD9: 401.9, ICD10: I10 - Controlled - Continue current medications - Recommend home blood pressure monitoring, to bring results to next visit - Encouraged sodium restriction, DASH or Mediterranean diet - Recommend regular aerobic exercise - Discussed need for and benefit of weight loss. BMI 50.66 kg/(m^2) 4. Anxiety - ICD9: 300.00, ICD10: F41.9 - stable on prozac 5. Elevated fasting blood sugar - ICD9: 790.21, ICD10: R73.01 - stable. Patient to cont work on life style changes. 6. Gastroesophageal reflux disease without esophagitis - ICD9: 530.81, ICD10: K21.9 - Continue treatment with Prilosec 40 mg QD 7. Rheumatoid arthritis involving multiple sites with positive rheumatoid factor (HCC) - ICD9: 714.0, ICD10: M05.79 - om meds and managed per Rheum 8. MARCELLE (obstructive sleep apnea) - ICD9: 327.23, ICD10: G47.33 - wearing CPAP nightly with benefit 9. Overactive bladder - ICD9: 596.51, ICD10: N32.81 - stable on med per Urogyn 10. Insomnia, unspecified type - ICD9: 780.52, ICD10: G47.00 Cont - ZOLPIDEM 10 MG TABLET PDMP website checked and validated. All prescriptions have been APPROPRIATELY filled. No suspiciousactivity was identified. 02/09/2024 by Braulio Urrutia MD 11. Fatty liver - ICD9: 571.8, ICD10: K76.0 - FIB-4 Calculation: 1.04 at 01/31/2024 2:28 PM Calculated from: SGOT/AST: 17 U/L at 01/31/2024 2:28 PM SGPT/ALT: 14 U/L at 01/31/2024 2:28 PM Platelets: 310 k/uL at 01/31/2024 2:28 PM Age: 73 years 12. Chronic pain syndrome - ICD9: 338.4, ICD10: G89.[address] Pollard 13. Screening for depression - ICD9: V79.0, ICD10: Z13.31 - DEPRESSION SCREENING I spent a total of 40 minutes on the date of the service which included preparing to see the patient, [id number] patient care, completing clinical documentation, performing a medically appropriate examination, counseling and educating the patient/family/caregiver and ordering medications, tests, or procedures. Braulio Urrutia MD documented in [facility] NoteHNO ID: [id number] Author: BRAULIO URRUTIA MD Service: ? Author Type: Physician Type: Progress Notes Filed: 02/09/2024 14:05 Note Text: Nia Kiran is a 73 year old female here for a Medicare wellness visit. Medicare Health Risk Assessment General Health Good Exercise: Minutes/Day 10 min Exercise: Days/Week 0 days Alcohol: Daily Use Never Alcohol: Drinks/Day Patient does not drink Alcohol: 6 or more drinks Never Feel off balance No Concerns: Teeth/Dentures No Concerns: Sexual function No Troubled by feelings None of the above Frequency: Eating healthy diet Several days ADLs requiring help None of the above Safety precautions in home/vehicle Yes Smoke, vape, chews tobacco No Difficulty hearing No Difficulty seeing No Current Providers Specialists: I have reviewed specialist-related care of the patient in the medical record. Dr. Lopez: Rheum, Sandra Astor: OB Dr. Pollard: pain management. Medical/Family history review Reviewed and updated problem list, medical/surgical/family/social history, medications, and allergies. Opioid use review Opioid Medications (last 90 days) No data to display Anxiety/Depression screening PHQ-9 Score: 0 . CAROL-7 Score: 0 . Recommendation: no further intervention at this time Cognitive screening Score: 5 Cognitive screening reviewed and No further action needed (score 3-5). Functional Observation Was the patient's Timed Up AND Go test unsteady or >= 12 seconds? No Advance Care Planning Surrogate decision maker documented and/or advance directives scanned in chart Measurements BP 116/76 Pulse 76 Resp 16 Ht 160 cm (5' 3) Wt 129.7 kg (286 lb) BMI 50.66 kg/m? Vision Screening: Follows with optometry/ophthalmology Assessment/Plan Medicare annual wellness visit, subsequent (Z00.00) - Counseled on healthy diet and regular exercise - Fall avoidance information provided - Personalized prevention plan provided See below Chief Complaint Patient presents with: Medicare Wellness Exam HPI Nia Kiran is a 73 year old female who presents here today for Chronic Medical Conditions. and Medicare Annual Visit. Patient with HTN, MARCELLE, constipation, Insomnia, elevated glucose, RA, OA, and those as below. Patient sees MAIL ORDER BILLER last visit 04/[address] Pollard - pain management Patient has been doing well no new issues or concerns. Past medical history, appointments, medications, allergies reviewed. Previous Medical History PAST MEDICAL HISTORY Diagnosis Date Acute pain of right shoulder 08/21/2022 Seeing Jade Santiago 07/2022 Advance directive discussed with patient 02/04/2022 Discussed 01/2022: up to date Allergic rhinitis 08/31/2013 Anxiety Chronic pain syndrome 05/06/202304/2023 seeing Pain management, Dr. Pollard Common wart 01/21/2009 Constipation COPD (chronic obstructive pulmonary disease) ([facility]) well controlled-managed by PCP Elevated fasting blood sugar 2016 Essential hypertension with goal blood pressure less than 140/90 06/27/2015 well controlled-managed by PCP Family history of malignant neoplasm of gastrointestinal tract Fatty liver Gastroesophageal reflux disease without esophagitis 06/04/2015 Hallux valgus (acquired) 04/12/2008 Hemorrhage of gastrointestinal tract, unspecified Hiatal hernia sliding History of knee replacement, total both Hyponatremia 01/31/2021 Related to Hctz Insomnia 06/04/2015 LBBB (left bundle branch block) 05/29/2022 Living will on file at physician's office 02/04/2022 DPA: Alessandra (daughter) Medicare annual wellness visit, initial 11/04/2017 Medicare Part B: 09/29/2017 last done: 11/04/2018 Medicare annual wellness visit, initial 11/04/2017 Medicare Part B: 09/29/2017 last done: 11/10/2019 Medicare annual wellness visit, subsequent 11/04/2017 Medicare Part B: 09/29/2017 last done: 02/04/2022 Muscle spasm 12/14/2017 Uses prn flexeril OA (osteoarthritis) 08/31/2013 Sees Ortho for Shoulder: Dr. Mahoney Obesity, Class III, BMI 40-49.9 (morbid obesity) ([facility]) 05/04/2018 OSTEOARTHRITIS LOCALIZED, PRIMARY( Lower Leg) 07/22/2005 Other age-related cataract 07/27/[address] Turcios Other complications due to other internal orthopedic device, implant, and graft 07/03/2008 Other skin changes 01/21/[address] Turcios for twice a year skin checks Overactive bladder 08/31/2013 Prolonged Q-T interval on ECG 06/04/2015 Per cardio felt to be prozac related. Rheumatoid arthritis involving multiple sites with positive rheumatoid factor (HCC) 05/05/[address] Schmidt Severe obstructive sleep apnea 05/24/2017 compliant with CPAP Spinal stenosis of lumbar region with neurogenic claudication 12/15/2022 Symptomatic menopausal or female climacteric states 08/03/2011 Previous Surgical History PAST SURGICAL HISTORY Procedure Laterality Date ANESTHESIA CLOSED PROCEDURES KNEE JULIA (more content not included)...[facility]12[facility]06[facility] Instructions* Patient Instructions* Duy Pedroza PA-C - 02/04/2024 1:20 PM EST PATIENT PREOPERATIVE INSTRUCTIONS Lj Paz DO has scheduled you for your procedure at this surgery center: [facility]: [phone] -- [address] [address]. Please read below carefully for your personalized instructions. Dietary Restrictions: - Follow bowel prep instructions: clear liquids need to be stopped 2 hours prior to schedule arrival at facility Medications: Unless instructed differently below, stay on all of your medications until your surgery. Approved medications to take the morning of surgery with a sip of water: OMEPRAZOLE, PROZAC, PLAQUENIL, FLEXERIL, LISINOPRIL If you start any new medications after today's visit, please contact the surgeon's office. Blood Thinning Medications: - Stop NSAIDS (Ibuprofen, Advil, Aleve, Motrin, Celebrex, Mobic, etc.) 7 days before surgery, as directed by your surgeon. - Stop Aspirin 7 days before surgery, as directed by your surgeon. - Stop Vitamin E, ALL multi-vitamins, herbals and dietary supplements 7 days before surgery. - You may take Tylenol (Acetaminophen) or any of your pain medications that do not contain aspirin or NSAIDS as needed. Important Reminders: - Candy, mints, and tobacco products are NOT permitted the morning of surgery. - Hearing aids, dentures and glasses may be worn the morning of surgery. - NO jewelry, body piercings, makeup, hairpins or contacts are to be worn the day of surgery. If you develop symptoms such as a fever, cold, or flu, or have other changes to your health within TWO DAYS of scheduled surgery or the morning of surgery, please contact the surgery center above. Personal Belongings: -Please have photo ID and insurance cards. -If you do not have a copy of advance directives on file with us, please bring a copy with you on the day of surgery. - Leave ALL valuables and money at home or with family members. For Outpatient Procedures: - YOU MUST HAVE A RESPONSIBLE FACILITY REHAB DIRECTOR TAKE YOU HOME. A STEEL CUTTER OR CLIPPER COUNTERS CANNOT BE MADE A RESPONSIBLE FACILITY REHAB DIRECTOR. - We recommend that a responsible person stays with you overnight to take care of you. - You cannot stay in a hotel alone after outpatient surgery. You will not be permitted to have yoursurgery, if you do not have someone to take care of you. Arrival Time for Surgery: - The Surgery Center or hospital where you are having surgery will call the afternoon before surgery (or Wednesday for Wednesday surgery) with a scheduled arrival time. - If you have not heard by 4 pm, please contact the surgery center above. Please be aware that emergency situations arise, which may delay or change your surgical time. If this happens, we will notify you as soon as possible and regret any inconvenience. If you already have an Advance Directive, please fax a copy to [phone] or email to for it to be added to your chart. If you do not have an Advance Directive, you can find the appropriate form and more information at [email or web address]. We recommend that youcomplete the Advance Directive form found on the website and bring it with you the day of your surgery. It can be witnessed and scanned into your chart that day. documented in this encounterC[facility]12-[facility]24 History and physical note * Duy Pedroza PA-C - 02/04/2024 1:10 PM EST PREANESTHESIA CONSULT CLINIC TELEHEALTH VISIT Patient has been identified by name and date of : Yes This is a virtual visit using Graphiclyom Video Visit. It require patient- provider interaction forthe medical decision making as documented below. Reason for contact: PACC visit Accompanied by: Self This is a virtual visit using Virtual Visit (Audio/Visual)I have discussed the nature of this visit with the patient which will occur via Distance Health (Phone, Virtual Visit) and she agrees to proceed with this interaction. It required patient-provider interaction for the medical decision making as documented below. I have communicated my name and active licensure. The patient's identity and physical location wereverified at the time of this visit. Either the patient or their legal school admissions representative has been informed of the risks and benefits of and alternatives to treatment through a remote evaluation and consents to proceed with the evaluation remotely. Scheduled Surgery: COLONOSCOPY Subjective CHIEF COMPLAINT: Patient presents with: Pre-Op Visit HPI: Patient is a 73 year old female here for PACC. Patient has been recommended for screening colonoscopy; last colonoscopy 5 years ago. Denies abdominal pain, diarrhea, constipation, blood in stool. Family history of colon polyps: brother Family history of colon cancer: brother ACTIVE PROBLEM LIST OSTEOARTHRITIS LOCALIZED, PRIMARY( Lower Leg) Hallux valgus (acquired) Other complications due to other internal orthopedic device, implant, and graft Symptomatic Menopausal Or Female Climacteric States Anxiety History of Knee Replacement, Total Constipation Hiatal Hernia Fatty Liver Allergic Rhinitis Overactive Bladder Oa (Osteoarthritis) Gerd (Gastroesophageal Reflux Disease) Insomnia Prolonged Q-T Interval On Ecg Essential Hypertension With Goal Blood Pressure Less Than 140/90 Elevated Fasting Blood Sugar Marcelle (Obstructive Sleep Apnea) Muscle Spasm Family History of Malignant Neoplasm of Gastrointestinal Tract Obesity Rheumatoid Arthritis Involving Multiple Sites With Positive Rheumatoid Factor (Hcc) Other Age-Related Cataract Medication Management Other Skin Changes Hyponatremia Living Will On File At Physician's Office Advance Directive Discussed With Patient Arthritis of Left Shoulder Region Lbbb (Left Bundle Branch Block) Acute Pain of Right Shoulder Spinal Stenosis of Lumbar Region With Neurogenic Claudication Lumbar Radiculopathy Balance Disorder Chronic Pain Syndrome Screening for Colon Cancer PAST MEDICAL HISTORY Diagnosis Date Acute pain of right shoulder 08/21/2022 Seeing [facility] 07/2022 Advance directive discussed with patient 02/04/2022 Discussed 01/2022: up to date Allergic rhinitis 08/31/2013 Anxiety Chronic pain syndrome 05/06/202304/2023 seeing Pain management, Dr. Atul Shaffer wart 01/21/2009 Constipation COPD (chronic obstructive pulmonary disease) (HCC) well controlled-managed by PCP Elevated fasting blood sugar 2016 Essential hypertension with goal blood pressure less than 140/90 06/27/2015 well controlled-managed by PCP Family history of malignant neoplasm of gastrointestinal tract Fatty liver Gastroesophageal reflux disease without esophagitis 06/04/2015 Hallux valgus (acquired) 04/12/2008 Hemorrhage of gastrointestinal tract, unspecified Hiatal hernia sliding History of knee replacement, total both Hyponatremia 01/31/2021 Related to Hctz Insomnia 06/04/2015 LBBB (left bundle branch block) 05/29/2022 Living will on file at physician's office 02/04/2022 DPA: Alessandra (daughter) Medicare annual wellness visit, initial 11/04/2017 Medicare Part B: 09/29/2017 last done: 11/04/2018 Medicare annual wellness visit, initial 11/04/2017 Medicare Part B: 09/29/2017 last done: 11/10/2019 Medicare annual wellness visit, subsequent 11/04/2017 Medicare Part B: 09/29/2017 last done: 02/04/2022 Muscle spasm 12/14/2017 Uses prn flexeril OA (osteoarthritis) 08/31/2013 Sees Ortho for Shoulder: Dr. Mahoney Obesity, Class III, BMI 40-49.9 (morbid obesity) ([facility]) 05/04/2018 OSTEOARTHRITIS LOCALIZED, PRIMARY( Lower Leg) 07/22/2005 Other age-related cataract 07/27/[address] Turcios Other complications due to other internal orthopedic device, implant, and graft 07/03/2008 Other skin changes 01/21/[address] Turcios for twice a year skin checks Overactive bladder 08/31/2013 Prolonged Q-T interval on ECG 06/04/2015 Per cardio felt to be prozac related. Rheumatoid arthritis involving multiple sites with positive rheumatoid factor ([facility]) 05/05/[address] Schmidt Severe obstructive sleep apnea 05/24/2017 compliant with CPAP Spinal stenosis of lumbar region with neurogenic claudication 12/15/2022 Symptomatic menopausal or female climacteric states 08/03/2011 PAST SURGICAL HISTORY Procedure Laterality Date ANESTHESIA CLOSED PROCEDURES KNEE JOINT 2006 LEFT ANKLE LEFT ARTHROSCOPY KNEE DIAGNOSTIC W/WO SYNOVIAL BX SPX Left 2006 CARDIAC CATH 05/19/2017 normal coronaries CATARACT EXTRACTION HX Bilateral 07/2018 and 08/2018 COLONOSCOPY FLX DX W/COLLJ SPEC WHEN PFRMD 10/04/2008 COLONOSCOPY FLX DX W/COLLJ SPEC WHEN PFRMD 12/07/2013 Colonoscopy, repeat 5 yrs COLONOSCOPY FLX DX W/COLLJ SPEC WHEN PFRMD 12/05/2018 Colonoscopy CORRECTION OF BUNION 04/2008 Left foot ESOPHAGOGASTRODUODENOSCOPY TRANSORAL DIAGNOSTIC 12/05/2018 EGD PAST SURGICAL HISTORY OF 2009 ligament surgery on both thumbs REPAIR ENTEROCELE,VAG APPRCH 04/18/2019 REPAIR OF RECTOCELE 04/18/2019 ROTATOR CUFF REPAIR 10/2012 left shouldar TOTAL KNEE REPLACEMENT 01/2009 right VAGINAL HYSTERECTOMY UTERUS 250 GM/< 10/2004 WITH TVT FAMILY HISTORY Problem Relation Age of Onset Diabetes Mother Coronary Artery Disease Mother 80's Cancer Father Lung Leukemia Brother No Known Problems Brother Colon Cancer Brother other (Brain Aneurism) Brother other (Other) Brother Accident age 5 No Known Problems Maternal Grandmother No Known Problems Maternal Grandfather No Known Problems Paternal Grandmother No Known Problems Paternal Grandfather No Known Problems Daughter No Known Problems Daughter Blood Disease Daughter Essential Thrombocytosis and Von Willinbers Disease No Known Problems Daughter Social History Tobacco Use Smoking status: Never Smokeless tobacco: Never Vaping Use Vaping status: Never Used Substance Use Topics Alcohol use: Not Currently Comment: Rarely Drug use: Never ALLERGIES Allergen Reactions Morphine Rash And delusions Demerol [Meperidine* Itching Dilaudid [Hydromorp* Itching Percocet [Oxycodone* Unknown Poison Michelle Swelling, Itching, Other: See Comments nausea Vicodin [Hydrocodon* Unknown MEDICATIONS: Current Outpatient Medications Medication Sig montelukast (SINGULAIR) 10 mg tablet Take 1 tablet by mouth daily at bedtime. omeprazole (PRILOSEC) 40 mg capsule Take 1 capsule by mouth once daily. spironolactone (ALDACTONE) 25 mg tablet Take 1 tablet by mouth once daily. zolpidem (AMBIEN) 10 mg Take 1 tablet by mouth at bedtime as needed for up to 180 days. For Insomnia. cyclobenzaprine (FLEXERIL) 10 mg tablet Take once a day as needed for pain. FLUoxetine (PROZAC) 40 mg capsule Take 1 capsule by mouth once daily. lisinopril (ZESTRIL) 10 mg tablet Take 1 tablet by mouth once daily. WALKER ROLLATOR SEAT WITH 6 WHEELS - RED UAD acetaminophen (TYLENOL ARTHRITIS PAIN) 650 mg CR tablet Take 650 mg by mouth every 8 hours as needed. magnesium carb,citrate,oxide (MAGNESIUM COMPLEX ORAL) Take by mouth. Taking 500 mg magnesium melatonin 10 mg cap Take by mouth as directed. meloxicam (MOBIC) 15 mg tablet Take 15 mg by mouth once daily. Last dose 06/16 estrogens conjugated (PREMARIN) 0.625 mg tablet Take 1 tablet by mouth two times a week. hydrOXYchloroQUINE (PLAQUENIL) 200 mg tablet Take 1 tablet by mouth twice daily. Per rheumatology (Patient taking differently: Take 200 mg by mouth two times a day. Last dose 06/16 will check with rheumatology (Dr. Lopez) on 06/08 at appointment) amoxicillin (POLYMOX, AMOXIL) 500 mg capsule Take 4 capsules by mouth as needed. Before dental procedures. mirabegron (MYRBETRIQ) 50 mg Tb24 Take by mouth every morning. LOW-DOSE ASPIRIN ORAL Take 81 mg by mouth once daily. Last dose 06/16 GLUCOSAMINE HCL/CHONDR PACHECO A NA (OSTEO BI-FLEX ORAL) Take by mouth once daily. Last dose 06/10 multivitamins(DAILY MULTIVITAMIN TAB) Take 1 tablet by mouth once daily. Last dose 06/10 ascorbic acid(VITAMIN C 500 MG SR CAP) Take 1,000 mg by mouth once daily. Last dose 06/10 COLACE 100 MG CAP Take by mouth every morning. No current facility-administered medications for this visit. REVIEW OF SYSTEMS: General: No weight loss, malaise or fevers. Neuro: No history of TIA's, stroke, GUT SNATCHER tumor, impaired sensorium, hemiplegia, paraplegia or quadraplegia. No neurological symptoms or problems. Respiratory: Positive for MARCELLE; COPD , Negative for Current cough, Dyspnea, Pneumonia within 6 weeks(date), URI < 2 weeks Cardiovascular: Positive for: Hypertension, Negative for Arrhythmia, CAD, Chest Pain, Valvular Heart Disease, DVT/PE GI: Positive for GERD, Negative for Nausea, Vomiting, Liver disease : +urinary frequency on Myrbetriq Endocrine: No history of diabetes. Has not taken steroids within the past 30 days. No history of endocrinological symptoms or problems. Hematology: Chronic anti-coagulation / platelet meds (Aspirin) Oncology: No history of CA metastasis, chemo within 30 days, or radiotherapy within 90 days. Has not lost 10% of body wt in 6 months. No history of oncological symptoms or problems. Psych: Anxiety, Depression Musculoskeletal: Negative for joint pain or swelling, back pain or muscle pain. Skin: Negative for lesions, rash and itching. Objective PHYSICAL EXAM: Ht 5' 3[pt reported[ (1.60m) Wt 283 lb (128.4kg) BMI 50.14 kg/(m^2). VIDEO EXAM: (if completed, performed via video enabled technology) GENERAL: alert and appropriate, in no distress, well-hydrated, well nourished, happy, smiling, interactive, and overweight EYES: no injection, PERRL, and EOMI OROPHARYNX: moist mucus membranes, no tonsillar hypertrophy/exudate, uvula midline and pharynx non-erythematous, lips, teeth and gums are without obvious lesion NECK: full ROM, no cervical LNs noted RESPIRATORY: breathing non-labored CHEST: equal chest rise with normal respiratory effort HEART: Regular carotid pulse based on tempo of count Diagnostic tests reviewed for today's visit: Lab Value Units Date High Low HB 12.4 g/dL 01/31/2024 15.5 11.5 HCT 37.8 % 01/31/2024 46.0 36.0 WBC 4.33 k/uL 01/31/2024 11.00 3.70 PLT 310 k/uL 01/31/2024 400 150 NA 132 mmol/L 02/02/2024 144 136 K 4.9 mmol/L 02/02/2024 5.1 3.7 GLUC 108 mg/dL 02/02/2024 99 74 BUN 24 mg/dL 02/02/2024 21 7 CREAT 0.92 mg/dL 02/02/2024 0.96 0.58 PTSEC No results within date range. INR No results within date range. APTT No results within date range. ALT 14 U/L 01/31/2024 38 7 AST 17 U/L 01/31/2024 35 13 TBILI 0.2 mg/dL 01/31/2024 1.3 0.2 TSH 3.180 mIU/L 01/31/2024 4.200 0.270 Hemoglobin A1C (%) Date Value 01/31/2024 5.8 08/16/2023 5.8 02/09/2023 5.7 08/05/2022 5.8 05/27/2022 5.8 01/14/2021 5.8 06/05/2020 6.2 10/24/2019 6.3 04/25/2019 6.0 10/21/2018 5.8 EKG Procedure Date : May 27 2022 11:56:25 Edit Date : May 27 2022 18:39:58 Diagnosis: Normal sinus rhythm Incomplete left bundle branch block Borderline ECG No previous ECGs available Confirmed by JONI PAEZ, [facility] ([id number]) on 05/27/2022 6:39:54 PM STRESS TEST 06/10/2022 CONCLUSIONS: 1. SPECT Perfusion Study: Normal. 2. There is no scintigraphic evidence for inducible ischemia. 3. No evidence of scarred myocardium. 4. Left ventricle is normal in size. The left ventricle systolic function is normal. 5. Right ventricle is normal in size. The right ventricle systolic function is normal. 6. This is a low risk scan. Gated Stress FBP Gated Rest FBP LVEF % 63 60 Impression/Recommendations ASSESSMENT: Overactive bladder Assessment: managed with Myrbetriq Rheumatoid arthritis involving multiple sites with positive rheumatoid factor (HCC) Assessment: followed by Dr. Lopez on [facility] MARCELLE (obstructive sleep apnea) Assessment: compliant with CPAP Essential hypertension with goal blood pressure less than 140/90 Assessment: managed with medication Last 4 Encounter BP Readings: Date: BP: 11/15/2023 112/72 08/24/2023 122/78 04/01/2023 118/80 02/17/2023 112/76 Obesity Assessment: BMI 50.13 GERD (gastroesophageal reflux disease) Assessment: symptoms controlled per patient with omeprazole METS: Able to walk one block with Rolator Walk a block or two on level ground (2.75 METs) Patient denies any chest pain or undue shortness of breath with the above physical activity. ANESTHESIA FINDINGS: Intubation History: No history of difficult intubation Significant Anesthesia Considerations: None Airway Exam: General: Normal appearance Mallampati Score is CLASS II ULBT: Class II - Lower incisors can bite the upper lip below the laz line Neck: Normal appearance and function, Distance from hyoid to mentum during neck extension is at least 3 finger breaths Mouth: Normal tongue size, Mouth opening greater than 2 finger breaths, and TMJ pain bilaterally, left > right Dentition: Intact, caps on upper front teeth Airway History: No abnormal airway history STOP BANG Score: MARCELLE uses CPAP/BiPAP PLAN: This patient is optimally prepared for surgery. CONSULTS: Patient does not require consults for optimization at this time. The Following Tests/Procedures Have Been Initiated: Labs not indicated per PACC protocol, EKG not indicated per PACC protocol Planned Anesthetic: Per anesthesia choice Instructions Given to Patient: Patient given verbal instructions and voices comprehension and compliance. Copy sent electronically via My Chart, email, or mobile device. I spent a total of 30 minutes on the date of the service which included preparing to see the patient, [id number] patient care, completing clinical documentation, obtaining and/or reviewing separately obtained history, performing a medically appropriate examination, and counseling and educating the patient/family/caregiver This is a virtual visit. It required patient-provider interaction for the medical decision making as documented above. SIGNATURE: Duy Pedroza PA-C PATIENT NAME: Nia Kiran DATE: 02/04/2024 TIME: 1:40 PM PAGER/CONTACT #: [facility]12-06-2024 History and physical note* Duy Pedroza PA-C - 02/04/2024 1:10 PM EST PREANESTHESIA CONSULT CLINIC TELEHEALTH VISIT Patient has been identified by name and date of : Yes This is a virtual visit using Graphiclyom Video Visit. It require patient- provider interaction forthe medical decision making as documented below. Reason for contact: PACC visit Accompanied by: Self This is a virtual visit using Virtual Visit (Audio/Visual)I have discussed the nature of this visit with the patient which will occur via Distance Health (Phone, Virtual Visit) and she agrees to proceed with this interaction. It required patient-provider interaction for the medical decision making as documented below. I have communicated my name and active licensure. The patient's identity and physical location wereverified at the time of this visit. Either the patient or their legal school admissions representative has been informed of the risks and benefits of and alternatives to treatment through a remote evaluation and consents to proceed with the evaluation remotely. Scheduled Surgery: COLONOSCOPY Subjective CHIEF COMPLAINT: Patient presents with: Pre-Op Visit HPI: Patient is a 73 year old female here for PACC. Patient has been recommended for screening colonoscopy; last colonoscopy 5 years ago. Denies abdominal pain, diarrhea, constipation, blood in stool. Family history of colon polyps: brother Family history of colon cancer: brother ACTIVE PROBLEM LIST OSTEOARTHRITIS LOCALIZED, PRIMARY( Lower Leg) Hallux valgus (acquired) Other complications due to other internal orthopedic device, implant, and graft Symptomatic Menopausal Or Female Climacteric States Anxiety History of Knee Replacement, Total Constipation Hiatal Hernia Fatty Liver Allergic Rhinitis Overactive Bladder Oa (Osteoarthritis) Gerd (Gastroesophageal Reflux Disease) Insomnia Prolonged Q-T Interval On Ecg Essential Hypertension With Goal Blood Pressure Less Than 140/90 Elevated Fasting Blood Sugar Marcelle (Obstructive Sleep Apnea) Muscle Spasm Family History of Malignant Neoplasm of Gastrointestinal Tract Obesity Rheumatoid Arthritis Involving Multiple Sites With Positive Rheumatoid Factor (Hcc) Other Age-Related Cataract Medication Management Other Skin Changes Hyponatremia Living Will On File At Physician's Office Advance Directive Discussed With Patient Arthritis of Left Shoulder Region Lbbb (Left Bundle Branch Block) Acute Pain of Right Shoulder Spinal Stenosis of Lumbar Region With Neurogenic Claudication Lumbar Radiculopathy Balance Disorder Chronic Pain Syndrome Screening for Colon Cancer PAST MEDICAL HISTORY Diagnosis Date Acute pain of right shoulder 08/21/2022 Seeing [facility] 07/2022 Advance directive discussed with patient 02/04/2022 Discussed 01/2022: up to date Allergic rhinitis 08/31/2013 Anxiety Chronic pain syndrome 05/06/202304/2023 seeing Pain management, Dr. Pollard Common wart 01/21/2009 Constipation COPD (chronic obstructive pulmonary disease) (HCC) well controlled-managed by PCP Elevated fasting blood sugar 2016 Essential hypertension with goal blood pressure less than 140/90 06/27/2015 well controlled-managed by PCP Family history of malignant neoplasm of gastrointestinal tract Fatty liver Gastroesophageal reflux disease without esophagitis 06/04/2015 Hallux valgus (acquired) 04/12/2008 Hemorrhage of gastrointestinal tract, unspecified Hiatal hernia sliding History of knee replacement, total both Hyponatremia 01/31/2021 Related to Hctz Insomnia 06/04/2015 LBBB (left bundle branch block) 05/29/2022 Living will on file at physician's office 02/04/2022 DPA: Alessandra (daughter) Medicare annual wellness visit, initial 11/04/2017 Medicare Part B: 09/29/2017 last done: 11/04/2018 Medicare annual wellness visit, initial 11/04/2017 Medicare Part B: 09/29/2017 last done: 11/10/2019 Medicare annual wellness visit, subsequent 11/04/2017 Medicare Part B: 09/29/2017 last done: 02/04/2022 Muscle spasm 12/14/2017 Uses prn flexeril OA (osteoarthritis) 08/31/2013 Sees Ortho for Shoulder: Dr. Mahoney Obesity, Class III, BMI 40-49.9 (morbid obesity) ([facility]) 05/04/2018 OSTEOARTHRITIS LOCALIZED, PRIMARY( Lower Leg) 07/22/2005 Other age-related cataract 07/27/[address] Turcios Other complications due to other internal orthopedic device, implant, and graft 07/03/2008 Other skin changes 01/21/[address] Turcios for twice a year skin checks Overactive bladder 08/31/2013 Prolonged Q-T interval on ECG 06/04/2015 Per cardio felt to be prozac related. Rheumatoid arthritis involving multiple sites with positive rheumatoid factor ([facility]) 05/05/[address] Schmidt Severe obstructive sleep apnea 05/24/2017 compliant with CPAP Spinal stenosis of lumbar region with neurogenic claudication 12/15/2022 Symptomatic menopausal or female climacteric states 08/03/2011 PAST SURGICAL HISTORY Procedure Laterality Date ANESTHESIA CLOSED PROCEDURES KNEE JOINT 2006 LEFT ANKLE LEFT ARTHROSCOPY KNEE DIAGNOSTIC W/WO SYNOVIAL BX SPX Left 2006 CARDIAC CATH 05/19/2017 normal coronaries CATARACT EXTRACTION HX Bilateral 07/2018 and 08/2018 COLONOSCOPY FLX DX W/COLLJ SPEC WHEN PFRMD 10/04/2008 COLONOSCOPY FLX DX W/COLLJ SPEC WHEN PFRMD 12/07/2013 Colonoscopy, repeat 5 yrs COLONOSCOPY FLX DX W/COLLJ SPEC WHEN PFRMD 12/05/2018 Colonoscopy CORRECTION OF BUNION 04/2008 Left foot ESOPHAGOGASTRODUODENOSCOPY TRANSORAL DIAGNOSTIC 12/05/2018 EGD PAST SURGICAL HISTORY OF 2009 ligament surgery on both thumbs REPAIR ENTEROCELE,VAG APPRCH 04/18/2019 REPAIR OF RECTOCELE 04/18/2019 ROTATOR CUFF REPAIR 10/2012 left shouldar TOTAL KNEE REPLACEMENT 01/2009 right VAGINAL HYSTERECTOMY UTERUS 250 GM/< 10/2004 WITH TVT FAMILY HISTORY Problem Relation Age of Onset Diabetes Mother Coronary Artery Disease Mother 80's Cancer Father Lung Leukemia Brother No Known Problems Brother Colon Cancer Brother other (Brain Aneurism) Brother other (Other) Brother Accident age 5 No Known Problems Maternal Grandmother No Known Problems Maternal Grandfather No Known Problems Paternal Grandmother No Known Problems Paternal Grandfather No Known Problems Daughter No Known Problems Daughter Blood Disease Daughter Essential Thrombocytosis and Von Willinbers Disease No Known Problems Daughter Social History Tobacco Use Smoking status: Never Smokeless tobacco: Never Vaping Use Vaping status: Never Used Substance Use Topics Alcohol use: Not Currently Comment: Rarely Drug use: Never ALLERGIES Allergen Reactions Morphine Rash And delusions Demerol [Meperidine* Itching Dilaudid [Hydromorp* Itching Percocet [Oxycodone* Unknown Poison Michelle Swelling, Itching, Other: See Comments nausea Vicodin [Hydrocodon* Unknown MEDICATIONS: Current Outpatient Medications Medication Sig montelukast (SINGULAIR) 10 mg tablet Take 1 tablet by mouth daily at bedtime. omeprazole (PRILOSEC) 40 mg capsule Take 1 capsule by mouth once daily. spironolactone (ALDACTONE) 25 mg tablet Take 1 tablet by mouth once daily. zolpidem (AMBIEN) 10 mg Take 1 tablet by mouth at bedtime as needed for up to 180 days. For Insomnia. cyclobenzaprine (FLEXERIL) 10 mg tablet Take once a day as needed for pain. FLUoxetine (PROZAC) 40 mg capsule Take 1 capsule by mouth once daily. lisinopril (ZESTRIL) 10 mg tablet Take 1 tablet by mouth once daily. WALKER ROLLATOR SEAT WITH 6 WHEELS - RED UAD acetaminophen (TYLENOL ARTHRITIS PAIN) 650 mg CR tablet Take 650 mg by mouth every 8 hours as needed. magnesium carb,citrate,oxide (MAGNESIUM COMPLEX ORAL) Take by mouth. Taking 500 mg magnesium melatonin 10 mg cap Take by mouth as directed. meloxicam (MOBIC) 15 mg tablet Take 15 mg by mouth once daily. Last dose 06/16 estrogens conjugated (PREMARIN) 0.625 mg tablet Take 1 tablet by mouth two times a week. hydrOXYchloroQUINE (PLAQUENIL) 200 mg tablet Take 1 tablet by mouth twice daily. Per rheumatology (Patient taking differently: Take 200 mg by mouth two times a day. Last dose 06/16 will check with rheumatology (Dr. Lopez) on 06/08 at appointment) amoxicillin (POLYMOX, AMOXIL) 500 mg capsule Take 4 capsules by mouth as needed. Before dental procedures. mirabegron (MYRBETRIQ) 50 mg Tb24 Take by mouth every morning. LOW-DOSE ASPIRIN ORAL Take 81 mg by mouth once daily. Last dose 06/16 GLUCOSAMINE HCL/CHONDR PAHCECO A NA (OSTEO BI-FLEX ORAL) Take by mouth once daily. Last dose 06/10 multivitamins(DAILY MULTIVITAMIN TAB) Take 1 tablet by mouth once daily. Last dose 06/10 ascorbic acid(VITAMIN C 500 MG SR CAP) Take 1,000 mg by mouth once daily. Last dose 06/10 COLACE 100 MG CAP Take by mouth every morning. No current facility-administered medications for this visit. REVIEW OF SYSTEMS: General: No weight loss, malaise or fevers. Neuro: No history of TIA's, stroke, GUT SNATCHER tumor, impaired sensorium, hemiplegia, paraplegia or quadraplegia. No neurological symptoms or problems. Respiratory: Positive for MARCELLE; COPD , Negative for Current cough, Dyspnea, Pneumonia within 6 weeks(date), URI < 2 weeks Cardiovascular: Positive for: Hypertension, Negative for Arrhythmia, CAD, Chest Pain, Valvular Heart Disease, DVT/PE GI: Positive for GERD, Negative for Nausea, Vomiting, Liver disease : +urinary frequency on Myrbetriq Endocrine: No history of diabetes. Has not taken steroids within the past 30 days. No history of endocrinological symptoms or problems. Hematology: Chronic anti-coagulation / platelet meds (Aspirin) Oncology: No history of CA metastasis, chemo within 30 days, or radiotherapy within 90 days. Has not lost 10% of body wt in 6 months. No history of oncological symptoms or problems. Psych: Anxiety, Depression Musculoskeletal: Negative for joint pain or swelling, back pain or muscle pain. Skin: Negative for lesions, rash and itching. Objective PHYSICAL EXAM: Ht 5' 3[pt reported[ (1.60m) Wt 283 lb (128.4kg) BMI 50.14 kg/(m^2). VIDEO EXAM: (if completed, performed via video enabled technology) GENERAL: alert and appropriate, in no distress, well-hydrated, well nourished, happy, smiling, interactive, and overweight EYES: no injection, PERRL, and EOMI OROPHARYNX: moist mucus membranes, no tonsillar hypertrophy/exudate, uvula midline and pharynx non-erythematous, lips, teeth and gums are without obvious lesion NECK: full ROM, no cervical LNs noted RESPIRATORY: breathing non-labored CHEST: equal chest rise with normal respiratory effort HEART: Regular carotid pulse based on tempo of count Diagnostic tests reviewed for today's visit: Lab Value Units Date High Low HB 12.4 g/dL 01/31/2024 15.5 11.5 HCT 37.8 % 01/31/2024 46.0 36.0 WBC 4.33 k/uL 01/31/2024 11.00 3.70 PLT 310 k/uL 01/31/2024 400 150 NA 132 mmol/L 02/02/2024 144 136 K 4.9 mmol/L 02/02/2024 5.1 3.7 GLUC 108 mg/dL 02/02/2024 99 74 BUN 24 mg/dL 02/02/2024 21 7 CREAT 0.92 mg/dL 02/02/2024 0.96 0.58 PTSEC No results within date range. INR No results within date range. APTT No results within date range. ALT 14 U/L 01/31/2024 38 7 AST 17 U/L 01/31/2024 35 13 TBILI 0.2 mg/dL 01/31/2024 1.3 0.2 TSH 3.180 mIU/L 01/31/2024 4.200 0.270 Hemoglobin A1C (%) Date Value 01/31/2024 5.8 08/16/2023 5.8 02/09/2023 5.7 08/05/2022 5.8 05/27/2022 5.8 01/14/2021 5.8 06/05/2020 6.2 10/24/2019 6.3 04/25/2019 6.0 10/21/2018 5.8 EKG Procedure Date : May 27 2022 11:56:25 Edit Date : May 27 2022 18:39:58 Diagnosis: Normal sinus rhythm Incomplete left bundle branch block Borderline ECG No previous ECGs available Confirmed by JONI PAEZ, [facility] ([id number]) on 05/27/2022 6:39:54 PM STRESS TEST 06/10/2022 CONCLUSIONS: 1. SPECT Perfusion Study: Normal. 2. There is no scintigraphic evidence for inducible ischemia. 3. No evidence of scarred myocardium. 4. Left ventricle is normal in size. The left ventricle systolic function is normal. 5. Right ventricle is normal in size. The right ventricle systolic function is normal. 6. This is a low risk scan. Gated Stress FBP Gated Rest FBP LVEF % 63 60 Impression/Recommendations ASSESSMENT: Overactive bladder Assessment: managed with Myrbetriq Rheumatoid arthritis involving multiple sites with positive rheumatoid factor (HCC) Assessment: followed by Dr. Lopez on Pl[place]edelia MARCELLE (obstructive sleep apnea) Assessment: compliant with CPAP Essential hypertension with goal blood pressure less than 140/90 Assessment: managed with medication Last 4 Encounter BP Readings: Date: BP: 11/15/2023 112/72 08/24/2023 122/78 04/01/2023 118/80 02/17/2023 112/76 Obesity Assessment: BMI 50.13 GERD (gastroesophageal reflux disease) Assessment: symptoms controlled per patient with omeprazole METS: Able to walk one block with Rolator Walk a block or two on level ground (2.75 METs) Patient denies any chest pain or undue shortness of breath with the above physical activity. ANESTHESIA FINDINGS: Intubation History: No history of difficult intubation Significant Anesthesia Considerations: None Airway Exam: General: Normal appearance Mallampati Score is CLASS II ULBT: Class II - Lower incisors can bite the upper lip below the laz line Neck: Normal appearance and function, Distance from hyoid to mentum during neck extension is at least 3 finger breaths Mouth: Normal tongue size, Mouth opening greater than 2 finger breaths, and TMJ pain bilaterally, left > right Dentition: Intact, caps on upper front teeth Airway History: No abnormal airway history STOP BANG Score: MARCELLE uses CPAP/BiPAP PLAN: This patient is optimally prepared for surgery. CONSULTS: Patient does not require consults for optimization at this time. The Following Tests/Procedures Have Been Initiated: Labs not indicated per [facility] protocol, EKG not indicated per [facility] protocol Planned Anesthetic: Per anesthesia choice Instructions Given to Patient: Patient given verbal instructions and voices comprehension and compliance. Copy sent electronically via My Chart, email, or mobile device. I spent a total of 30 minutes on the date of the service which included preparing to see the patient, [id number] patient care, completing clinical documentation, obtaining and/or reviewing separately obtained history, performing a medically appropriate examination, and counseling and educating the patient/family/caregiver This is a virtual visit. It required patient-provider interaction for the medical decision making as documented above. SIGNATURE: Duy Pedroza PA-C PATIENT NAME: Nia Kiran DATE: 02/04/2024 TIME: 1:40 PM PAGER/CONTACT #: documented in [facility] Telephone encounter Note * Telephone Encounter - Braulio Urrutia MD - 02/02/2024 8:57 AM EST Noted. [facility]12-04-2024 Miscellaneous Notes* Telephone Encounter - Braulio Urrutia MD - 02/02/2024 8:57 AM EST Noted. * Telephone Encounter - Sheridan Escobedo MA - 02/02/2024 8:50 AM EST Patient notified and voiced understanding. Patient will come get labs done today/tomorrow. No signs or symptoms of UTI. Sheridan Escobedo MA * Telephone Encounter - Braulio Urrutia MD - 02/01/2024 9:26 PM EST Let patient know her sodium was slightly low and her potassium was slightly high. I placed an orderfor a BMP to be done at the [facility]. Also let her know her UA shows she may have a UTI. If having symptoms will need treated? documented in this encounterC[facility]12-04-2024 Telephone encounter Note * Telephone Encounter - Sheridan Escobedo MA - 02/02/2024 8:50 AM EST Patient notified and voiced understanding. Patient will come get labs done today/tomorrow. No signs or symptoms of UTI. Sheridan Escobedo MA [facility]12-03-2024 Telephone encounter Note* Telephone Encounter - Braulio Urrutia MD - 02/01/2024 9:26 PM EST Let patient know her sodium was slightly low and her potassium was slightly high. I placed an orderfor a BMP to be done at the [facility]. Also let her know her UA shows she may have a UTI. If having symptoms will need treated? [facility]09-16-[facility] Nurse Note* JoseEnaDISHA - 11/15/2023 1:46 PM EDT REVIEW OF SYSTEMS: General: The patient denies fatigue, denies weight loss, denies weight gain, denies feeling hot, and denies feelings of cold. Eyes: The patient denies glaucoma, notes eye surgery, wears glasses. Ear/Nose/Throat: The patient notes allergies, denies hayfever, denies ear infections, and denies bloody noses. Cardiovascular: The patient denies chest pain, denies heart disease, notes high blood pressure,denies cardiac stent, denies prior heart attack, denies irregular heart beat, denies high cholesterol, denies poor circulation, denies heart failure, other cardiac issues, denies claudication, denies coldfeet, denies peripheral arterial stent, notes leg pain. Respiratory: The patient denies tuberculosis, denies pneumonia, denies frequent cough, denies pulmonary embolism, denies shortness of breath, and denies coughing up blood. Gastrointestinal: The patient denies difficulty swallowing, notes acid reflux, denies ulcers, denies vomiting, denies jaundice/hepatitis, denies gallbladder problems, denies black or tarry stools, denies hemorrhoids, denies bleeding from rectum, denies diverticulitis, denies constipation, denies diarrhea, denies loss of stool control, and denies hernias. Kidney/Bladder: The patient denies kidney stones, denies urine infections, and denies bloody urine. Skin: The patient notes a history of skin cancer, denies bleeding/changing moles, and denies a history of skin rash. Neurologic: The patient denies a history of epilepsy/convulsions, denies headaches, denies head/spinal injuries, and denies stroke/TIA. Psychiatric: The patient denies psychiatric medications, denies depression, and denies voices, denies substance abuse. Endocrine: The patient denies thyroid disorders, denies diabetes, and denies hormonal problems. Hematologic: The patient notes a history of bruising, denies bleeding, and denies anemia, denies blood clots. Infections: The patient denies a history of measles and mumps, denies rheumatic fever, and denies sexually transmitted diseases. Musculoskeletal: The patient denies back pain/injury, notes back problems, denies sciatica, denies knee/foot trouble, notes arthritis (RA and OA), or denies gout. When was patient's last Mammogram screening? 04/01/2023 Last Colonoscopy: 12/05/2018 Ena Garcia LPN [facility]09-16-[facility] Nurse Note* Ena Garcia LPN - 11/15/2023 1:46 PM EDT REVIEW OF SYSTEMS: General: The patient denies fatigue, denies weight loss, denies weight gain, denies feeling hot, and denies feelings of cold. Eyes: The patient denies glaucoma, notes eye surgery, wears glasses. Ear/Nose/Throat: The patient notes allergies, denies hayfever, denies ear infections, and denies bloody noses. Cardiovascular: The patient denies chest pain, denies heart disease, notes high blood pressure,denies cardiac stent, denies prior heart attack, denies irregular heart beat, denies high cholesterol, denies poor circulation, denies heart failure, other cardiac issues, denies claudication, denies coldfeet, denies peripheral arterial stent, notes leg pain. Respiratory: The patient denies tuberculosis, denies pneumonia, denies frequent cough, denies pulmonary embolism, denies shortness of breath, and denies coughing up blood. Gastrointestinal: The patient denies difficulty swallowing, notes acid reflux, denies ulcers, denies vomiting, denies jaundice/hepatitis, denies gallbladder problems, denies black or tarry stools, denies hemorrhoids, denies bleeding from rectum, denies diverticulitis, denies constipation, denies diarrhea, denies loss of stool control, and denies hernias. Kidney/Bladder: The patient denies kidney stones, denies urine infections, and denies bloody urine. Skin: The patient notes a history of skin cancer, denies bleeding/changing moles, and denies a history of skin rash. Neurologic: The patient denies a history of epilepsy/convulsions, denies headaches, denies head/spinal injuries, and denies stroke/TIA. Psychiatric: The patient denies psychiatric medications, denies depression, and denies voices, denies substance abuse. Endocrine: The patient denies thyroid disorders, denies diabetes, and denies hormonal problems. Hematologic: The patient notes a history of bruising, denies bleeding, and denies anemia, denies blood clots. Infections: The patient denies a history of measles and mumps, denies rheumatic fever, and denies sexually transmitted diseases. Musculoskeletal: The patient denies back pain/injury, notes back problems, denies sciatica, denies knee/foot trouble, notes arthritis (RA and OA), or denies gout. When was patient's last Mammogram screening? 04/01/2023 Last Colonoscopy: 12/05/2018 Ena Garcia LPN * Ena Garcia LPN - 11/15/2023 1:42 PM EDT This Nurse reviewed and provided patient with copy of written instructions. The patient verbalized understanding and was given a number for questions. Ena Garcia LPN documented in this encounterC[facility]09-[facility] Nurse Note* Ena Garcia LPN - 11/15/2023 1:42 PM EDT This Nurse reviewed and provided patient with copy of written instructions. The patient verbalized understanding and was given a number for questions. Ena Garcia LPN [facility] History of Present illness Narrative* Wendy Martinez APRN.MARINE EQUIPMENT PRESERVATION INSPECTOR - 11/15/2023 1:00 PM EDT HISTORY AND PHYSICAL Nia Kiran : 1950 REFERRING PHYSICIAN: No referring provider defined for this encounter. CHIEF COMPLAINT: Patient presents with: Consult HPI: Nia is a 73 year old female referred for endoscopy. Nia notes due for screening colonoscopy. Nia denies abdominal pain.. Nia denies diarrhea. Nia denies constipation. Nia denies a change in bowel habits. Nia denies melena. Nia denies bright red blood per rectum. Nia denies hemorrhoids. +Hx of GERD- controlled with Prilosec 40mg daily Nia denies dysphagia. Nia denies a history of ulcers/ peptic ulcer disease. Notes family history of colon issues.-brother with colon cancer Nia has a hx of MARCELLE- wears CPAP nightly. Nia has undergone prior endoscopy. Last EGD & colonoscopy was 11/[address] Magallanes at [facility]. Sedation received: Fentanyl 100 micrograms IV, Midazolam 8 mg IV EGD Impression: - Normal esophagus. - Normal stomach. Biopsied. - Normal examined duodenum. Colonoscopy Impression: - The entire examined colon is normal. - No specimens collected. PATHOLOGY CONVERTED FINAL DIAGNOSIS Stomach, antrum, biopsy - Mild chronic inactive gastritis with focal intestinal metaplasia. - Negative for dysplasia. - Negative for H. pylori organisms on immunostain. SHENA/slb 12/06/2018 Current Outpatient Medications Medication Sig peg 3350-Electrolytes (GOLYTELY) 236-22.74-6.74 -5.86 gram suspension Take 4,000 mL by mouth one time only for 1 dose. Refer to printed prep instructions from your provider. montelukast (SINGULAIR) 10 mg tablet Take 1 tablet by mouth daily at bedtime. omeprazole (PRILOSEC) 40 mg capsule Take 1 capsule by mouth once daily. spironolactone (ALDACTONE) 25 mg tablet Take 1 tablet by mouth once daily. zolpidem (AMBIEN) 10 mg Take 1 tablet by mouth at bedtime as needed for up to 180 days. For Insomnia. cyclobenzaprine (FLEXERIL) 10 mg tablet Take once a day as needed for pain. FLUoxetine (PROZAC) 40 mg capsule Take 1 capsule by mouth once daily. lisinopril (ZESTRIL) 10 mg tablet Take 1 tablet by mouth once daily. WALKER ROLLATOR SEAT WITH 6 WHEELS - RED UAD acetaminophen (TYLENOL ARTHRITIS PAIN) 650 mg CR tablet Take 650 mg by mouth every 8 hours as needed. magnesium carb,citrate,oxide (MAGNESIUM COMPLEX ORAL) Take by mouth. Taking 500 mg magnesium melatonin 10 mg cap Take by mouth as directed. meloxicam (MOBIC) 15 mg tablet Take 15 mg by mouth once daily. Last dose 06/16 estrogens conjugated (PREMARIN) 0.625 mg tablet Take 1 tablet by mouth two times a week. hydrOXYchloroQUINE (PLAQUENIL) 200 mg tablet Take 1 tablet by mouth twice daily. Per rheumatology (Patient taking differently: Take 200 mg by mouth two times a day. Last dose 06/16 will check with rheumatology (Dr. Lopez) on 06/08 at appointment) amoxicillin (POLYMOX, AMOXIL) 500 mg capsule Take 4 capsules by mouth as needed. Before dental procedures. mirabegron (MYRBETRIQ) 50 mg Tb24 Take by mouth every morning. LOW-DOSE ASPIRIN ORAL Take 81 mg by mouth once daily. Last dose 06/16 GLUCOSAMINE HCL/CHONDR PACHECO A NA (OSTEO BI-FLEX ORAL) Take by mouth once daily. Last dose 06/10 multivitamins(DAILY MULTIVITAMIN TAB) Take 1 tablet by mouth once daily. Last dose 06/10 ascorbic acid(VITAMIN C 500 MG SR CAP) Take 1,000 mg by mouth once daily. Last dose 06/10 COLACE 100 MG CAP Take by mouth every morning. No current facility-administered medications for this visit. ALLERGIES: Morphine, Demerol [Meperidine (Pf)], Dilaudid [Hydromorphone (Bulk)], Percocet [Oxycodone-Acetaminophen], Poison Michelle, and Vicodin [Hydrocodone-Acetaminophen] PAST MEDICAL HISTORY Diagnosis Date Acute pain of right shoulder 08/21/2022 Seeing Jade Santiago 07/2022 Advance directive discussed with patient 02/04/2022 Discussed 01/2022: up to date Allergic rhinitis 08/31/2013 Anxiety Chronic pain syndrome 05/06/202304/2023 seeing Pain management, Dr. Atul Shaffer wart 01/21/2009 Constipation COPD (chronic obstructive pulmonary disease) (HCC) well controlled-managed by PCP Elevated fasting blood sugar 2016 Essential hypertension with goal blood pressure less than 140/90 06/27/2015 well controlled-managed by PCP Family history of malignant neoplasm of gastrointestinal tract Fatty liver Gastroesophageal reflux disease without esophagitis 06/04/2015 Hallux valgus (acquired) 04/12/2008 Hemorrhage of gastrointestinal tract, unspecified Hiatal hernia sliding History of knee replacement, total both Hyponatremia 01/31/2021 Related to Hctz Insomnia 06/04/2015 LBBB (left bundle branch block) 05/29/2022 Living will on file at physician's office 02/04/2022 DPA: Alessandra (daughter) Medicare annual wellness visit, initial 11/04/2017 Medicare Part B: 09/29/2017 last done: 11/04/2018 Medicare annual wellness visit, initial 11/04/2017 Medicare Part B: 09/29/2017 last done: 11/10/2019 Medicare annual wellness visit, subsequent 11/04/2017 Medicare Part B: 09/29/2017 last done: 02/04/2022 Muscle spasm 12/14/2017 Uses prn flexeril OA (osteoarthritis) 08/31/2013 Sees Ortho for Shoulder: Dr. Mahoney Obesity, Class III, BMI 40-49.9 (morbid obesity) (HCC) 05/04/2018 OSTEOARTHRITIS LOCALIZED, PRIMARY( Lower Leg) 07/22/2005 Other age-related cataract 07/27/[address] Turcios Other complications due to other internal orthopedic device, implant, and graft 07/03/2008 Other skin changes 01/21/[address] Turcios for twice a year skin checks Overactive bladder 08/31/2013 Prolonged Q-T interval on ECG 06/04/2015 Per cardio felt to be prozac related. Rheumatoid arthritis involving multiple sites with positive rheumatoid factor (HCC) 05/05/[address] Schmidt Severe obstructive sleep apnea 05/24/2017 compliant with CPAP Spinal stenosis of lumbar region with neurogenic claudication 12/15/2022 Symptomatic menopausal or female climacteric states 08/03/2011 PAST SURGICAL HISTORY Procedure Laterality Date ANESTHESIA CLOSED PROCEDURES KNEE JOINT 2006 LEFT ANKLE LEFT ARTHROSCOPY KNEE DIAGNOSTIC W/WO SYNOVIAL BX SPX Left 2006 CARDIAC CATH 05/19/2017 normal coronaries CATARACT EXTRACTION HX Bilateral 07/2018 and 08/2018 COLONOSCOPY FLX DX W/COLLJ SPEC WHEN PFRMD 10/04/2008 COLONOSCOPY FLX DX W/COLLJ SPEC WHEN PFRMD 12/07/2013 Colonoscopy, repeat 5 yrs COLONOSCOPY FLX DX W/COLLJ SPEC WHEN PFRMD 12/05/2018 Colonoscopy CORRECTION OF BUNION 04/2008 Left foot ESOPHAGOGASTRODUODENOSCOPY TRANSORAL DIAGNOSTIC 12/05/2018 EGD PAST SURGICAL HISTORY OF 2009 ligament surgery on both thumbs REPAIR ENTEROCELE,VAG APPRCH 04/18/2019 REPAIR OF RECTOCELE 04/18/2019 ROTATOR CUFF REPAIR 10/2012 left shouldar TOTAL KNEE REPLACEMENT 01/2009 right VAGINAL HYSTERECTOMY UTERUS 250 GM/< 10/2004 WITH TVT FAMILY HISTORY Problem Relation Age of Onset Diabetes Mother Coronary Artery Disease Mother 80's Cancer Father Lung Leukemia Brother No Known Problems Brother Colon Cancer Brother other (Brain Aneurism) Brother other (Other) Brother Accident age 5 No Known Problems Maternal Grandmother No Known Problems Maternal Grandfather No Known Problems Paternal Grandmother No Known Problems Paternal Grandfather No Known Problems Daughter No Known Problems Daughter Blood Disease Daughter Essential Thrombocytosis and Von Willinbers Disease No Known Problems Daughter Social History Tobacco Use Smoking status: Never Smokeless tobacco: Never Vaping Use Vaping status: Never Used Substance Use Topics Alcohol use: Not Currently Comment: Rarely Drug use: Never REVIEW OF SYMPTOMS: The review of systems data was entered by the nurse and reviewed by wi Nursing Notes: Ena Garcia LPN 11/15/2023 1:42 PM Signed This Nurse reviewed and provided patient with copy of written instructions. The patient verbalized understanding and was given a number for questions. Ena Garcia LPN PHYSICAL EXAMINATION: General: The patient is 73 year old, female well nourished, well hydrated in no acute distress. Thepatient is oriented to time, place, and person. VITALS: Blood pressure 112/72, pulse 92, temperature 36.7 C (98 F), temperature source Temporal, resp. rate 16, height 160 cm (5' 3), weight 130.6 kg (288 lb), SpO2 98%. Body mass index is 51.02 kg/m . HEENT: Normal cephalic, ataumatic, pupils are equally round, sclera are anicteric, mucous membranesare moist, oropharynx is clear. Neck has no masses, asymmetry or lymphadenopathy. Respiratory: Clear to auscultation and percussion. Normal respiratory excursion and pattern. Cardiac: Examination is regular rate and rhythm. Normal S1/S2 Abdominal exam: Soft, nontender, with no palpable masses. No hepatosplenomegaly. No palpable hernias. Extremities: no clubbing, cyanosis or edema. No adenopathy. LABORATORY VALUES: As Noted RADIOLOGIC STUDIES: As Noted Assessment IMPRESSION: family history of colon cancer, screen for colon cancer PLAN: I have reviewed my findings with the surgeon. Will plan for lower endoscopy. We discussed therisks and benefits of the planned endoscopy. I have informed the patient that complications can occur including failure to complete the endoscopy and perforation. Nia had the opportunity to ask questions concerning the planned endoscopy. My staff has also explained the procedure to the patient inunderstandable terms and has given the patient printed material concerning the procedure. Nia freely consents to surgery. I plan to use Golytely bowel preparation I have explained to the patient the difference between IV conscious sedation and MAC anesthesia - and I have offered either, according to the patient's wishes. I have explained that with IV conscioussedation there is no anesthesia provider available and therefore there is a limitation of the amount of IV medications that can be given and that the patient may wake up in the middle of the procedure and/or experience pain/discomfort during the procedure. Further discussion was done and the patient was given the opportunity to ask questions and all questions were answered. MAC anesthesia d/t Josey OR Nia was counseled that if there are changes in his/her medical condition, to let the office know if surgery should proceed. If there are changes in patient's medical condition from time of this encounter to the day of the procedure that preclude anesthesia, patient may have procedure cancelled for patient's safety. Diagnoses: (Z80.0) Family history of malignant neoplasm of gastrointestinal tract (primary encounter diagnosis) (Z12.11) Encounter for screening for malignant neoplasm of colon (Z12.11) Screening for colon cancer Consultation requested by Dr. Urrutia for an opinion regarding colon cancer screening-high risk d/t family hx of colon cancer. My final recommendations will be communicated back to the requesting physician by way of shared Medical record or letter to requesting physician via US mail. Portions of this documentation were copied and pasted from previous office visit notes in order to provide a cohesive continuity of the history. The note has been reviewed and edited and updated as necessary. Wendy Martinez APRN.MARINE EQUIPMENT PRESERVATION INSPECTOR documented in this encounterC[facility]08-16-[facility]24 Telephone encounter Note * Telephone Encounter - Aiyana Loco MA - 10/15/2023 11:19 AM EDT Pt notified via Lovli that Gen Surg consult has been placed. Made her aware to contact office andspeak with a Iv Technician to help setup an appt. Aiyana Loco MA [facility]08-16-2024 Miscellaneous Notes* Telephone Encounter - Aiyana Loco MA - 10/15/2023 11:19 AM EDT Pt notified via Lovli that Gen Surg consult has been placed. Made her aware to contact office andspeak with a Iv Technician to help setup an appt. Aiyana Loco MA * Telephone Encounter - Braulio Urrutia MD - 10/14/2023 2:58 PM EDT Consult to Gen surgery placed. * Telephone Encounter - Macie Adrian LPN - 10/14/2023 1:12 PM EDT Please see pt's message. Macie Adrian LPN documented in this encounterC[facility]08-[facility]-2024 Telephone encounter Note * Telephone Encounter - Braulio Urrutia MD - 10/14/2023 2:58 PM EDT Consult to Gen surgery placed. [facility] Telephone encounter Note* Telephone Encounter - Macie Adrian LPN - 10/14/2023 1:12 PM EDT Please see pt's message. Macie Adrian LPN [facility]07-27-2024 Telephone encounter Note* Telephone Encounter - Katelynn Nielsen RN - 09/25/2023 8:55 AM EDT Pt called and is notified of providers results. Pt voices understanding. Katelynn Nielsen RN [facility]07-27-2024 Miscellaneous Notes* Telephone Encounter - Katelynn Nielsen RN - 09/25/2023 8:55 AM EDT Pt called and is notified of providers results. Pt voices understanding. Katelynn Nielsen RN * Telephone Encounter - Braulio Urrutia MD - 09/24/2023 8:53 PM EDT Let patient know the nerve conduction studies showed no carpal tunnel or ulnar neuropathy. They we normal. * Telephone Encounter - Macie Adrian LPN - 09/23/2023 10:23 AM EDT Received results of pt's EMG/NCS ordered by pcp. Scan on 09/22/2023 2:18 PM by Provider, External, PA-C: Miscellaneous Procedures documented [facility] encounterC[facility] Telephone encounter Note * Telephone Encounter - Braulio Urrutia MD - 09/24/2023 8:53 PM EDT Let patient know the nerve conduction studies showed no carpal tunnel or ulnar neuropathy. They we normal. [facility] Telephone encounter Note* Telephone Encounter - Macie Adrian LPN - 09/23/2023 10:23 AM EDT Received results of pt's EMG/NCS ordered by pcp. Scan on 09/22/2023 2:18 PM by Provider, External, GETACHEWC: Miscellaneous Procedures [facility]07-08-[facility] Telephone encounter Note* Telephone Encounter - Braulio Urrutia MD - 09/06/2023 10:24 AM EDT The following approved medication requests have been transmitted electronically. Requested Prescriptions Signed Prescriptions Disp Refills FLUoxetine (PROZAC) 40 mg capsule 7 capsule 0 Sig: Take 1 capsule by mouth once daily. cyclobenzaprine (FLEXERIL) 10 mg tablet 7 tablet 0 Sig: Take once a day as needed for pain. lisinopril (ZESTRIL) 10 mg tablet 7 tablet 0 Sig: Take 1 tablet by mouth once daily. montelukast (SINGULAIR) 10 mg tablet 7 tablet 0 Sig: Take 1 tablet by mouth daily at bedtime. omeprazole (PRILOSEC) 40 mg capsule 7 capsule 0 Sig: Take 1 capsule by mouth once daily. spironolactone (ALDACTONE) 25 mg tablet 7 tablet 0 Sig: Take 1 tablet by mouth once daily. zolpidem (AMBIEN) 10 mg 7 tablet 0 Sig: Take 1 tablet by mouth at bedtime as needed for up to 180 days. For Insomnia. Braulio Urrutia MD [facility]07-08-[facility] Miscellaneous Notes* Telephone Encounter - Braulio Urrutia MD - 09/06/2023 10:24 AM EDT The following approved medication requests have been transmitted electronically. Requested Prescriptions Signed Prescriptions Disp Refills FLUoxetine (PROZAC) 40 mg capsule 7 capsule 0 Sig: Take 1 capsule by mouth once daily. cyclobenzaprine (FLEXERIL) 10 mg tablet 7 tablet 0 Sig: Take once a day as needed for pain. lisinopril (ZESTRIL) 10 mg tablet 7 tablet 0 Sig: Take 1 tablet by mouth once daily. montelukast (SINGULAIR) 10 mg tablet 7 tablet 0 Sig: Take 1 tablet by mouth daily at bedtime. omeprazole (PRILOSEC) 40 mg capsule 7 capsule 0 Sig: Take 1 capsule by mouth once daily. spironolactone (ALDACTONE) 25 mg tablet 7 tablet 0 Sig: Take 1 tablet by mouth once daily. zolpidem (AMBIEN) 10 mg 7 tablet 0 Sig: Take 1 tablet by mouth at bedtime as needed for up to 180 days. For Insomnia. Braulio Urrutia MD * Telephone Encounter - Sheridan Escobedo MA - 09/06/2023 8:52 AM EDT Patient is currently out of medication. [place]. Asking for short supply to the [facility]. Sheridan Escobedo MA documented in this encounterC[facility]07-[facility] Telephone encounter Note * Telephone Encounter - Sheridan Escobedo MA - 09/06/2023 8:52 AM EDT Patient is currently out of medication. [place] [facility] to the [facility] Esc[facility] MA [facility] Instructions* Patient Instructions* Braulio Urrutia MD - 08/24/2023 2:20 PM EDT Please get labs and urine test done on or after 02/11/2024 prior to your next visit. documented in this encounterC[facility]06-25-[facility]24 History of Present illness Narrative* Braulio Urrutia MD - 08/24/2023 1:40 PM EDT Chief Complaint Patient presents with: F/U 6 months HPI Nia Kiran is a 72 year old female who presents here today for 6 month follow up. Patient with HTN, MARCELLE, constipation, Insomnia, elevated glucose, RA, OA, and those as below. Patient has been doing well. No new issues of concerns. Past medical history, appointments, medications, allergies reviewed. Previous Medical History PAST MEDICAL HISTORY Diagnosis Date Acute pain of right shoulder 08/21/2022 Seeing Jade Santiago 07/2022 Advance directive discussed with patient 02/04/2022 Discussed 01/2022: up to date Allergic rhinitis 08/31/2013 Anxiety Chronic pain syndrome 05/06/202304/2023 seeing Pain management, Dr. Atul Shaffer wart 01/21/2009 Constipation COPD (chronic obstructive pulmonary disease) (HCC) well controlled-managed by PCP Elevated fasting blood sugar 2016 Essential hypertension with goal blood pressure less than 140/90 06/27/2015 well controlled-managed by PCP Family history of malignant neoplasm of gastrointestinal tract Fatty liver Gastroesophageal reflux disease without esophagitis 06/04/2015 Hallux valgus (acquired) 04/12/2008 Hemorrhage of gastrointestinal tract, unspecified Hiatal hernia sliding History of knee replacement, total both Hyponatremia 01/31/2021 Related to Hctz Insomnia 06/04/2015 LBBB (left bundle branch block) 05/29/2022 Living will on file at physician's office 02/04/2022 DPA: Alessandra (daughter) Medicare annual wellness visit, initial 11/04/2017 Medicare Part B: 09/29/2017 last done: 11/04/2018 Medicare annual wellness visit, initial 11/04/2017 Medicare Part B: 09/29/2017 last done: 11/10/2019 Medicare annual wellness visit, subsequent 11/04/2017 Medicare Part B: 09/29/2017 last done: 02/04/2022 Muscle spasm 12/14/2017 Uses prn flexeril OA (osteoarthritis) 08/31/2013 Sees Ortho for Shoulder: Dr. Mahoney Obesity, Class III, BMI 40-49.9 (morbid obesity) ([facility]) 05/04/2018 OSTEOARTHRITIS LOCALIZED, PRIMARY( Lower Leg) 07/22/2005 Other age-related cataract 07/27/[address] Turcios Other complications due to other internal orthopedic device, implant, and graft 07/03/2008 Other skin changes 01/21/[address] Turcios for twice a year skin checks Overactive bladder 08/31/2013 Prolonged Q-T interval on ECG 06/04/2015 Per cardio felt to be prozac related. Rheumatoid arthritis involving multiple sites with positive rheumatoid factor ([facility]) 05/05/[address] Schmidt Severe obstructive sleep apnea 05/24/2017 compliant with CPAP Spinal stenosis of lumbar region with neurogenic claudication 12/15/2022 Symptomatic menopausal or female climacteric states 08/03/2011 Previous Surgical History PAST SURGICAL HISTORY Procedure Laterality Date ANESTHESIA CLOSED PROCEDURES KNEE JOINT 2006 LEFT ANKLE LEFT ARTHROSCOPY KNEE DIAGNOSTIC W/WO SYNOVIAL BX SPX Left 2006 CARDIAC CATH 05/19/2017 normal coronaries CATARACT EXTRACTION HX Bilateral 07/2018 and 08/2018 COLONOSCOPY FLX DX W/COLLJ SPEC WHEN PFRMD 10/04/2008 COLONOSCOPY FLX DX W/COLLJ SPEC WHEN PFRMD 12/07/2013 Colonoscopy, repeat 5 yrs COLONOSCOPY FLX DX W/COLLJ SPEC WHEN PFRMD 12/05/2018 Colonoscopy CORRECTION OF BUNION 04/2008 Left foot ESOPHAGOGASTRODUODENOSCOPY TRANSORAL DIAGNOSTIC 12/05/2018 EGD PAST SURGICAL HISTORY OF 2009 ligament surgery on both thumbs REPAIR ENTEROCELE,VAG APPRCH 04/18/2019 REPAIR OF RECTOCELE 04/18/2019 ROTATOR CUFF REPAIR 10/2012 left shouldar TOTAL KNEE REPLACEMENT 01/2009 right VAGINAL HYSTERECTOMY UTERUS 250 GM/< 2005 WITH TVT Family History FAMILY HISTORY Problem Relation Age of Onset Diabetes Mother Coronary Artery Disease Mother 80's Cancer Father Lung No Known Problems Daughter Leukemia Brother No Known Problems Brother Colon Cancer Brother other (Brain Aneurism) Brother other (Other) Brother Accident age 5 No Known Problems Daughter Blood Disease Daughter Essential Thrombocytosis and Von Willinbers Disease No Known Problems Daughter Patient Allergies ALLERGIES Allergen Reactions Morphine Rash And delusions Demerol [Meperidine* Itching Dilaudid [Hydromorp* Itching Percocet [Oxycodone* Unknown Poison Michelle Swelling, Itching, Other: See Comments nausea Vicodin [Hydrocodon* Unknown Current Medications Current Outpatient Medications on File Prior to Visit Medication Sig WALKER ROLLATOR SEAT WITH 6 WHEELS - RED UAD zolpidem (AMBIEN) 10 mg Take 1 tablet by mouth at bedtime as needed for up to 180 days. For Insomnia. cyclobenzaprine (FLEXERIL) 10 mg tablet Take once a day as needed for pain. spironolactone (ALDACTONE) 25 mg tablet Take 1 tablet by mouth once daily. lisinopril (ZESTRIL) 10 mg tablet Take 1 tablet by mouth once daily. montelukast (SINGULAIR) 10 mg tablet Take 1 tablet by mouth daily at bedtime. omeprazole (PRILOSEC) 40 mg capsule Take 1 capsule by mouth once daily. FLUoxetine (PROZAC) 40 mg capsule Take 1 capsule by mouth once daily. acetaminophen (TYLENOL ARTHRITIS PAIN) 650 mg CR tablet Take 650 mg by mouth every 8 hours as needed. magnesium carb,citrate,oxide (MAGNESIUM COMPLEX ORAL) Take by mouth. Taking 500 mg magnesium melatonin 10 mg cap Take by mouth as directed. meloxicam (MOBIC) 15 mg tablet Take 15 mg by mouth once daily. Last dose 06/16 estrogens conjugated (PREMARIN) 0.625 mg tablet Take 1 tablet by mouth two times a week. hydrOXYchloroQUINE (PLAQUENIL) 200 mg tablet Take 1 tablet by mouth twice daily. Per rheumatology (Patient taking differently: Take 200 mg by mouth two times a day. Last dose 06/16 will check with rheumatology (Dr. Lopez) on 06/08 at appointment) amoxicillin (POLYMOX, AMOXIL) 500 mg capsule Take 4 capsules by mouth as needed. Before dental procedures. mirabegron (MYRBETRIQ) 50 mg Tb24 Take by mouth every morning. LOW-DOSE ASPIRIN ORAL Take 81 mg by mouth once daily. Last dose 06/16 GLUCOSAMINE HCL/CHONDR PACHECO A NA (OSTEO BI-FLEX ORAL) Take by mouth once daily. Last dose 06/10 multivitamins(DAILY MULTIVITAMIN TAB) Take by mouth. Last dose 06/10 ascorbic acid(VITAMIN C 500 MG SR CAP) Take by mouth. Last dose 06/10 COLACE 100 MG CAP Take by mouth every morning. No current facility-administered medications on file prior to visit. Social History Social History Tobacco Use Smoking status: Never Smokeless tobacco: Never Vaping Use Vaping Use: Never used Substance Use Topics Alcohol use: Yes Comment: Rarely Drug use: No Review of Symptoms REVIEW OF SYSTEMS GENERAL: No weight loss, malaise or fevers NECK: Negative for lumps, goiter, pain and significant neck swelling RESPIRATORY: Negative for cough, hemoptysis, wheezing, COPD, dyspnea or shortness of breath CARDIOVASCULAR: Negative for chest pain, leg swelling, hypertension, CHF or palpitations GI: No nausea, vomiting, or diarrhea and No heartburn or reflux symptoms ENDOCRINE: Negative for cold or heat intolerance, polyuria, polydipsia and goiter NEURO: No history of headaches, syncope, paralysis, seizures or tremors. Getting numbness in the 4th and 5th digits on both hands. EXAM: BP 136/96 (BP Site: Right Arm, BP Position: Sitting, BP Cuff Size: Regular Adult) Pulse 90 Resp16 Wt 131.1 kg (289 lb) BMI 49.95 kg/m BP 122/78 Pulse 90 Resp 16 Wt 131.1 kg (289 lb) BMI 49.95 kg/m Last 6 Encounter Wt Readings: Date: Wt: 08/24/2023 131.1 kg (289 lb) 04/01/2023 130.2 kg (287 lb) 02/17/2023 128.8 kg (284 lb) 12/09/2022 132.2 kg (291 lb 8 oz) 10/22/2022 131.5 kg (290 lb) 08/05/2022 130.2 kg (287 lb) General Appearance: Well appearing, alert, in no acute distress, well-hydrated, well nourished.. Neck: Supple, no adenopathy; thyroid symmetric, normal size, no bruits. Lungs: Lungs clear to auscultation. No wheezing, rhonchi, rales.. Heart: RRR without murmur, gallop, or rubs. No ectopy. Abdomen: Normal abdominal exam, Abdomen soft, non-tender. Bowel sounds normal. No masses, organomegaly. Extremities: No deformities, edema, skin discoloration, clubbing or cyanosis. Good capillary refill. . Peripheral Pulses: Normal. Neurologic: Gait normal. Sensation to light touch intact. Musk: strength testing normal.. Health Maintenance List BP Controlled (<130/80) due on 11/09/2020 Advance Directive Discussion due on 03/01/2023 Behavioral Health Screening Never done DTaP,Tdap,Td Vaccine(1 - Tdap) due on 02/18/2024 RSV Vaccine(1 - 1-dose 60+ series) due on 02/18/2024 Covid-19 Vaccine( season) due on 02/18/2024 Influenza Vaccine(Season Ended) due on 10/31/2023 Colorectal Cancer Screening due on 12/06/2023 Annual PCP Team Chronic Disease Visit due on 02/18/2024 Mammogram Screening due on 04/01/2024 Diabetes Screening due on 08/15/2026 Lipid Screening due on 08/15/2028 Bone Density Screening Completed Hepatitis C Screening Completed Shingrix Vaccine Completed Pneumococcal Vaccine: 65+ Completed Data reviewed Latest Ref Rng 02/09/2023 08/16/2023 Protein, Total 6.3 - 8.0 g/dL 7.3 Albumin 3.9 - 4.9 g/dL 4.5 Calcium 8.5 - 10.2 mg/dL 9.1 9.3 Bilirubin, Total 0.2 - 1.3 mg/dL 0.3 Alkaline Phosphatase 34 - 123 U/L 75 AST 13 - 35 U/L 29 ALT 7 - 38 U/L 23 Glucose 74 - 99 mg/dL 95 112 (H) BUN 7 - 21 mg/dL 17 17 Creatinine 0.58 - 0.96 mg/dL 0.95 1.01 (H) Sodium 136 - 144 mmol/L 134 (L) 135 (L) Potassium 3.7 - 5.1 mmol/L 4.2 4.8 Chloride 98 - 107 mmol/L 97 100 CO2 22 - 30 mmol/L 25 26 Anion Gap 8 - 15 mmol/L 12 9 eGFR >=60 mL/min/1.73m 65 60 Total Cholesterol, Nonfasting <200 mg/dL 212 (H) 197 Triglycerides, Nonfasting <150 mg/dL 84 115 HDL Cholesterol, Nonfasting >39 mg/dL 76 70 LDL Cholesterol, Nonfasting <100 mg/dL 119 (H) 104 (H) Non HDL Cholesterol, Nonfasting <130 mg/dL 136 (H) 127 VLDL Cholesterol, Nonfasting <30 mg/dL 17 23 Total Chol/HDL Ratio, Nonfasting <5.10 mg/dL 2.79 2.81 LDL/HDL Ratio, Nonfasting <2.54 mg/dL 1.57 1.49 Hemoglobin A1C 4.3 - 5.6 % 5.7 (H) 5.8 (H) Estimated Average Glucose mg/dL 117 120 A/P ASSESSMENT/PLAN: 1. Essential hypertension with goal blood pressure less than 140/90 - ICD9: 401.9, ICD10: I10 (primary diagnosis) - Controlled - Continue current medications - Recommend home blood pressure monitoring, to bring results to next visit - Encouraged sodium restriction, DASH or Mediterranean diet - Recommend regular aerobic exercise - Discussed need for and benefit of weight loss. BMI 49.95 kg/(m^2) 2. Elevated fasting blood sugar - ICD9: 790.21, ICD10: R73.01 - slightly increased A1c. Patient to work on life style changes for improved control 3. Gastroesophageal reflux disease without esophagitis - ICD9: 530.81, ICD10: K21.9 - Continue treatment with Prilosec 40 mg QD 4. Anxiety - ICD9: 300.00, ICD10: F41.9 - stable on Prozac. 5. Severe obstructive sleep apnea - ICD9: 327.23, ICD10: G47.33 Benefiting from nightly CPAP 6. Insomnia, unspecified type - ICD9: 780.52, ICD10: G47.00 Cont - ZOLPIDEM 10 MG TABLET 7. Morbid obesity (HCC) - ICD9: 278.01, ICD10: E66.01 Stable - Behavioral intervention 8. Numbness and tingling in both hands - ICD9: 782.0, ICD10: R20.0, R20.2 - will get NCS/EMG at [facility]. Requested Prescriptions Signed Prescriptions Disp Refills cyclobenzaprine (FLEXERIL) 10 mg tablet 90 tablet 1 Sig: Take once a day as needed for pain. FLUoxetine (PROZAC) 40 mg capsule 90 capsule 1 Sig: Take 1 capsule by mouth once daily. lisinopril (ZESTRIL) 10 mg tablet 90 tablet 1 Sig: Take 1 tablet by mouth once daily. montelukast (SINGULAIR) 10 mg tablet 90 tablet 1 Sig: Take 1 tablet by mouth daily at bedtime. omeprazole (PRILOSEC) 40 mg capsule 90 capsule 1 Sig: Take 1 capsule by mouth once daily. spironolactone (ALDACTONE) 25 mg tablet 90 tablet 1 Sig: Take 1 tablet by mouth once daily. zolpidem (AMBIEN) 10 mg 90 tablet 1 Sig: Take 1 tablet by mouth at bedtime as needed for up to 180 days. For Insomnia. F/u 6 months extensive Braulio Urrutia MD documented in this encounterC[facility]03-07-[facility]24 History of Present illness Narrative* Donna Gama LPN - 05/06/2023 10:56 AM EST Scan on 05/05/2023 10:31 AM by Provider, LUIS Cruz: Consultation - Anesthesia/Pain documented in this encounterC[facility]02-02-2024 Miscellaneous Notes* Telephone Encounter - Sheridan Escobedo MA - 04/02/2023 4:40 PM EST Patient notified via my chart. Sheridan Escobedo MA * Telephone Encounter - Braulio Urrutia MD - 04/02/2023 3:59 PM EST Let patient know mammo was ok. documented in this encounterCleveland Clinic [facility]02-01-2024 History of Present illness Narrative* Sandra Espinoza APRN.MARINE EQUIPMENT PRESERVATION INSPECTOR - 04/01/2023 12:45 PM EST Nia is a 72 year old who presents for an annual gynecologic exam without complaints. Postmenopausal: Yes since age 54 - patient had TVH HRT use: No. Last Pap: 2004 normal - prior to hysterectomy HPV: 06/19/2003 negative History of abnormal pap: No Last mammogram: 2023 today History of abnormal mammogram: No Sexually active: No OB History T4 L4 SAB0 IAB0 Ectopic0 Multiple0 Live Births0 Comment: 4 vaginal deliveries Tip Fixer History LMP: Hysterectomy Age at Menarche: Age at First : Age at Menopause: Tip Fixer History Comments: Sexual Activity: Not Currently; No partner data on record; Hysterectomy Contraception: Surgical PAST MEDICAL HISTORY Diagnosis Date Acute pain of right shoulder 08/21/2022 Seeing Jade Santiago 07/2022 Advance directive discussed with patient 02/04/2022 Discussed 01/2022: up to date Allergic rhinitis 08/31/2013 Anxiety Common wart 01/21/2009 Constipation COPD (chronic obstructive pulmonary disease) ([facility]) well controlled-managed by PCP Elevated fasting blood sugar 2016 Essential hypertension with goal blood pressure less than 140/90 06/27/2015 well controlled-managed by PCP Family history of malignant neoplasm of gastrointestinal tract Fatty liver Gastroesophageal reflux disease without esophagitis 06/04/2015 Hallux valgus (acquired) 04/12/2008 Hemorrhage of gastrointestinal tract, unspecified Hiatal hernia sliding History of knee replacement, total both Hyponatremia 01/31/2021 Related to Hctz Insomnia 06/04/2015 LBBB (left bundle branch block) 05/29/2022 Living will on file at physician's office 02/04/2022 DPA: Alessandra (daughter) Medicare annual wellness visit, initial 11/04/2017 Medicare Part B: 09/29/2017 last done: 11/04/2018 Medicare annual wellness visit, initial 11/04/2017 Medicare Part B: 09/29/2017 last done: 11/10/2019 Medicare annual wellness visit, subsequent 11/04/2017 Medicare Part B: 09/29/2017 last done: 02/04/2022 Muscle spasm 12/14/2017 Uses prn flexeril OA (osteoarthritis) 08/31/2013 Sees Ortho for Shoulder: Dr. Mahoney Obesity, Class III, BMI 40-49.9 (morbid obesity) ([facility]) 05/04/2018 OSTEOARTHRITIS LOCALIZED, PRIMARY( Lower Leg) 07/22/2005 Other age-related cataract 07/27/[address] Turcios Other complications due to other internal orthopedic device, implant, and graft 07/03/2008 Other skin changes 01/21/[address] Turcios for twice a year skin checks Overactive bladder 08/31/2013 Prolonged Q-T interval on ECG 06/04/2015 Per cardio felt to be prozac related. Rheumatoid arthritis involving multiple sites with positive rheumatoid factor (HCC) 05/05/[address] Schmidt Severe obstructive sleep apnea 05/24/2017 compliant with CPAP Spinal stenosis of lumbar region with neurogenic claudication 12/15/2022 Symptomatic menopausal or female climacteric states 08/03/2011 PAST SURGICAL HISTORY Procedure Laterality Date ANESTHESIA CLOSED PROCEDURES KNEE JOINT 2006 LEFT ANKLE LEFT ARTHROSCOPY KNEE DIAGNOSTIC W/WO SYNOVIAL BX SPX Left 2006 CARDIAC CATH 05/19/2017 normal coronaries CATARACT EXTRACTION HX Bilateral 07/2018 and 08/2018 COLONOSCOPY FLX DX W/COLLJ SPEC WHEN PFRMD 10/04/2008 COLONOSCOPY FLX DX W/COLLJ SPEC WHEN PFRMD 12/07/2013 Colonoscopy, repeat 5 yrs COLONOSCOPY FLX DX W/COLLJ SPEC WHEN PFRMD 12/05/2018 Colonoscopy CORRECTION OF BUNION 04/2008 Left foot ESOPHAGOGASTRODUODENOSCOPY TRANSORAL DIAGNOSTIC 12/05/2018 EGD PAST SURGICAL HISTORY OF 2009 ligament surgery on both thumbs REPAIR ENTEROCELE,VAG APPRCH 04/18/2019 REPAIR OF RECTOCELE 04/18/2019 ROTATOR CUFF REPAIR 10/2012 left shouldar TOTAL KNEE REPLACEMENT 01/2009 right VAGINAL HYSTERECTOMY UTERUS 250 GM/< 2005 WITH TVT FAMILY HISTORY Problem Relation Age of Onset Diabetes Mother Coronary Artery Disease Mother 80's Cancer Father Lung No Known Problems Daughter Leukemia Brother No Known Problems Brother Colon Cancer Brother other (Brain Aneurism) Brother other (Other) Brother Accident age 5 No Known Problems Daughter Blood Disease Daughter Essential Thrombocytosis and Von Willinbers Disease No Known Problems Daughter SOCIAL HISTORY Social History Tobacco Use Smoking status: Never Smokeless tobacco: Never Vaping Use Vaping Use: Never used Substance Use Topics Alcohol use: Yes Comment: Rarely Drug use: No REVIEW OF SYSTEMS Abdomen: No abdominal pain, nausea, vomiting, diarrhea, or constipation. No bloating, early satiety, indigestion, or increased flatulence. Bladder: No dysuria, gross hematuria, urinary frequency, urinary urgency, or incontinence Breast: No breast lumps, nipple d/c, overlying skin changes, redness or skin retraction Allergies and current medication updated:Yes EXAM: There were no vitals taken for this visit. GENERAL: pleasant, female in no apparent distress HEENT: Normocephalic, atraumatic, mucus membranes moist, and no lesions NECK: Supple, full range of motion, no adenopathy, and thyroid normal DERMATOLOGY: Normal, without lesions, non-icteric, and non-hirsute BREAST: soft, non-tender, symmetric, no dominant mass, normal nipple-areolar complex, no lymphadenopathy, and no nipple discharge CHEST: Normal inspiratory effort ABDOMEN: soft, non-tender, and no masses PELVIC: external genitalia normal, normal Bartholin's glands, urethra, [place]'s glands, no vulvar lesions, physiologic discharge present, normal appearing perineal body and perianal region, cervix surgically absent BIMANUAL: no adnexal masses, non-tender, and uterus surgically absent RECTOVAGINAL: deferred. NEURO: alert and oriented x3,exam grossly non-focal EXTREMITIES: normal ASSESSMENT/PLAN: 1) Health maintenance: Pap/HPV screening no longer needed Mammogram ordered Mammogram up to date Nutrition, exercise and routine health maintenance exams reviewed. Calcium/Vitamin D supplementation information provided. BMD: up to date 2) Follow up one year or sooner as needed Sandra Espinoza APRN.MARINE EQUIPMENT PRESERVATION INSPECTOR documented in this encounterCleveland Clinic [facility]11-06-2023 History of Present illness Narrative* Vladislav Garcia, PT - 01/04/2023 1:04 PM EST Program_ID:[id number] Access Code: [email or web address] URL: [email or web address] Date: 01-04-2023 Prepared By: Vladislav Garcia Program Notes Exercises - Hooklying Single Knee to Chest Stretch - 1-2 x daily - 7 x weekly - 2-3 - - Supine Double Knee to Chest - 1-2 x daily - 7 x weekly - 2-3 - - Supine Lower Trunk Rotation - 1-2 x daily - 7 x weekly - 2-3 - 10 - Supine Transversus Abdominis Bracing - Hands on Stomach - 1-2 x daily - 7 x weekly - 2 - 10 - Seated Flexion Stretch - 1-2 x daily - 7 x weekly - 2 - 10 - Standing March with Counter Support - 1-2 x daily - 4 x weekly - 2 - 10 - Forward Bending Hip Flexion with Flat Lumbar Spine - 1-2 x daily - 7 x weekly - 2 - 10 - Seated Repeated Flexion - 1-2 x daily - 7 x weekly - 2 - 10 - Seated Flexion Stretch with Citizen Of [place] Ball - 2 x daily - 7 x weekly - 2 - 10-15 * Vladislav Garcia, PT - 01/04/2023 1:03 PM EST Program_ID:[id number] Access Code: [email or web address] URL: [email or web address] Date: 01-04-2023 Prepared By: Vladislav Garcia Program Notes Exercises - Hooklying Single Knee to Chest Stretch - 1-2 x daily - 7 x weekly - 2-3 - - Supine Double Knee to Chest - 1-2 x daily - 7 x weekly - 2-3 - - Supine Lower Trunk Rotation - 1-2 x daily - 7 x weekly - 2-3 - 10 - Supine Transversus Abdominis Bracing - Hands on Stomach - 1-2 x daily - 7 x weekly - 2 - 10 - Seated Flexion Stretch - 1-2 x daily - 7 x weekly - 2 - 10 - Standing March with Counter Support - 1-2 x daily - 4 x weekly - 2 - 10 - Forward Bending Hip Flexion with Flat Lumbar Spine - 1-2 x daily - 7 x weekly - 2 - 10 - Seated Repeated Flexion - 1-2 x daily - 7 x weekly - 2 - 10 * Vladislav Garcia, PT - 01/04/2023 12:41 PM EST Episode Visit Count: 4 Therapist That Will Accept/Oversee The Plan Of Care: Vladislav Garcia PT. Start of Care Date: 12/15/22 Onset Date: 03/01/22 (After the first of the year.) Plan of Care Certification Date: 12/15/22 Next Certification Due Date: 01/19/23 Patient Identified by Name and Date of : Yes REHABILITATION AND SPORTS THERAPY PHYSICAL THERAPY DISCONTINUANCE OF CARE PLAN OF CARE UPDATE: Assessment: Nia Kiran is discontinued from Physical Therapy services due to goal achievement. and Patient/Client declining further intervention. Patient was seen for 4 visits from Start of Care Date: 12/15/22 to 01/04/2023 and treatment included: Therapeutic exercise, Manual therapy, and Self-long term management. Goals for Episode of Care: UPDATED on 01/04/23 Goals for Episode of Care: created on 12/15/22 through 01/26/23 Independent in home exercises. (MET) Patient will decrease pain rating by 2 points to meet minimal clinical important difference for numeric pain rating scale. (MET) Restore pain-free lumbar active ROM grossly without limitation. (MET) Patient will be able to complete Standing / Walking / Stairs without an increase in pain/symptoms in 4-6 weeks to improve QOL. (MET) Patient will report an increase in duration ability to complete walking and standing for improved ADL/IADLs. (MET) Patient will demonstrate increase in trunk and RLE strength to 5/5 during manual muscle testing in order to improve function for basic self-care tasks, home management tasks, leisure / recreation skills, light functional tasks, and prior functional tasks. (MET) Patient Goals: Walk without pain. SUBJECTIVE: Patient reports she is doing good today; had a good out of state trip this past weekendwithout issue in the low back. Patient reports she would like discharged this date as she is feeling good and is confident she can maintain current function with HEP. Notes repeated flexion exerciseshave removed all of her pain & if pain comes on she can self-relieve with flexion based exercises for quick reduction.. Pain: Pain Pain Level: 0 Pain Location: Low Back/Lumbar Spine - Right Post Treatment Pain Post Treatment Pain Level: 0 Post Treatment Pain Location: Low Back/Lumbar Spine - Right PROMIS Scales Higher is Better 01/03/2023 12/13/2022 12/07/2022 Phys Func - Score 42 (mild dysfunction) - 38 (moderate dysfunction) Phys Func - Percentile 21 % - 12 % Self-Eff Symptom - Score - 41 (Average) - Self-Eff Symptom - Percentile - 18 % - T-scores: mean of general population = 50. 5 points is clinically meaningfully difference Percentiles provide an indication of how the patient's score ranks in relation to the general population. Higher percentile rankings indicate better function/quality of life. 50th percentile is the average of the general population and indicates half of respondents had a worse score. OBJECTIVE MEASURES WITH LEVEL OF FUNCTION: Lumbar Spine AROM Lumbar Flexion: Normal Lumbar Extension: Normal, Peripheralizing Lumbar R Side-Bend: Normal Lumbar L Side-Bend: Normal Lumbar R Rotation: Normal Lumbar L Rotation: Normal LE Strength R LE Strength: Grossly 5/5 with no asymmetrical myotomal weakness. L LE Strength: Grossly 5/5 with no asymmetrical myotomal weakness. Special Tests - Hip and Spine SLR Test: Right Negative, Left Negative TREATMENT: Therapeutic Exercise: 1: Sci-Fit: level 2.0, seat 11 - 6 Minutes. (Subjective taken during.) 2: Physioball (85cm) Flexion Rollouts: 2x15. 3: Physioball (85cm) Flexion & Rotation Rollouts: 2x15 ea. 4: Seated Repeated L/S Flexion: 2x10. 5: *Standing Forward Fold: 2x10. 6: *Seated Repeated L & R Flexion: 2x12 ea. 7: *Objective Measures Collected* 8: *Education on importance of HEP for continued maintainence of current function and sxs management. Skilled Intervention: Patient was educated in proper exercise technique and purpose for exercises. Reviewed and educated patient on additions/changes for home exercise program as above (*). Skilled judgment was used in selection of appropriate interventions. Provided written instruction for home exercise program to facilitate proper performance and compliance. Correct performance of therapeutic exercises was facilitated with verbal, visual, and tactile cuing. Manual Therapy: 1: Manual L/S Belt Traction with caudal pull and knees propped 90/90 on stool: Pull to tolerance. Skilled Intervention: Manual skills to improve joint mobility, ROM, and decrease pain. Utilized anatomy knowledge of the therapist, and assessment of patient's response to intervention. Billing Therapeutic Exercise Treatment Minutes: 32 Manual TherapyTreatment Minutes: 8 Skilled Treatment Time Minutes (timed and untimed codes): 40 Total Session Time (minutes): 40 Session Start Time : 1233 Session Stop Time : 1313 Vladislav Garcia PT documented [facility] encounter[facility] History of Present illness Narrative* Vladislav Garcia, PT - 12/28/2022 12:32 PM EDT Episode Visit Count: 2 Therapist That Will Accept/Oversee The Plan Of Care: Vladislav Garcia, PT. Start of Care Date: 12/15/22 Onset Date: 03/01/22 (After the first of the year.) Plan of Care Certification Date: 12/15/22 Next Certification Due Date: 01/19/23 Patient Identified by Name and Date of : Yes REHABILITATION AND SPORTS THERAPY PHYSICAL THERAPY TREATMENT NOTE ASSESSMENT: Nia Kiran tolerated the session with expected muscle soreness and no issues. She demonstrated reduction in symptoms with flexion rollouts. The patient will continue to benefit from ongoing skilled physical therapy to progress toward set goals. PLAN FOR NEXT VISIT: L/S Traction; return to neutral spine strengthening; continue flexion based activities. SUBJECTIVE: Patient reports she is achy today due to arthritis and the weather. States the pain & symptoms are about the same as before. Completing HEP 1x/week. Has questions if she is doing LTR. Pain: Pain Pain Level: 4 Pain Location: Low Back/Lumbar Spine - Right Description: Pressure, Numbness Frequency: Intermittent Post Treatment Pain Post Treatment Pain Level: Better Post Treatment Pain Location: Low Back/Lumbar Spine - Right, Leg - Right Post Treatment Symptoms: Just a tinge of pain in lateral R knee - Better than when she came in. OBJECTIVE MEASURES WITH LEVEL OF FUNCTION: Good form demonstrated during LTR despite concern. TREATMENT: Therapeutic Exercise: 1: Sci-Fit: level 1.5, seat 11. (Direct 1:1 contact and subjective taken.) 2: R SKC: 3x30 3: DKC: 3x30 4: Physioball (85cm) Flexion Rollouts:2x10. 5: Physioball (85cm) Flexion & Rotation Rollouts: 2x10 ea. 6: LTR: 1x10 ea. Skilled Intervention: Patient was educated in proper exercise technique and purpose for exercises. Skilled judgment was used in selection of appropriate interventions. Correct performance of therapeutic exercises was facilitated with verbal, visual, and tactile cuing. Manual Therapy: 1: Manual L/S Belt Traction with caudal pull and knees propped 90/90 on stool: Pull to tolerance. Skilled Intervention: Manual skills to improve joint mobility, ROM, and decrease pain. Utilized anatomy knowledge of the therapist, and assessment of patient's response to intervention. Billing Therapeutic Exercise Treatment Minutes: 32 Manual TherapyTreatment Minutes: 8 Skilled Treatment Time Minutes (timed and untimed codes): 40 Total Session Time (minutes): 40 Session Start Time : 1230 Session Stop Time : 1310 Vladislav Garcia PT documented in this encounterC[facility] Miscellaneous Notes* Telephone Encounter - Braulio Urrutia MD - 12/21/2022 10:47 PM EDT The following approved medication requests have been transmitted electronically. Requested Prescriptions Signed Prescriptions Disp Refills FLUoxetine (PROZAC) 40 mg capsule 90 capsule 1 Sig: Take 1 capsule by mouth once daily. Authorizing Provider: BRAULIO URRUTIA MD * Telephone Encounter - Macie Adrian LPN - 12/21/2022 1:48 PM EDT Last refilkl 06/22/22 Qty: 90 with 1 refill SILVIA 10/22/22 NOV 02/17/23 Macie Adrian LPN documented in this encounterC[facility]10[facility] History of Present illness Narrative* Vladislav Garcia PT - 12/15/2022 1:06 PM EDT Episode Visit Count: 1 Therapist That Will Accept/Oversee The Plan Of Care: Vladislav Garcia PT. Start of Care Date: 12/15/22 Onset Date: 03/01/22 (After the first of the year.) Plan of Care Certification Date: 12/15/22 Next Certification Due Date: 01/19/23 Patient Identified by Name and Date of : Yes REHABILITATION AND SPORTS THERAPY PHYSICAL THERAPY EVALUATION PLAN OF CARE: Assessment: Nia Kiran presents with diagnosis of spinal stenosis with neurogenic claudication, and lumbar radiculopathy that interferes with standing, walking, walking in the community, stair negotiation, physical activities, recreational activities . She presents with impairments in ADL's/IADL's, gait, independence in exercise, joint mobility, overall function, patient reported outcome measures, posture, range of motion, strength, symptom management, and tissue tenderness. PROMIS (Patient-Reported Outcomes Measurement Information System) scores were reviewed and physical function domain and self efficacy domain identified as a rehabilitation concern. Prognosis for therapy is Good due to: current objective clinical presentation, within-session changes, good support system/ coping skills, Prognosis may be limited due to multiple co- morbidities .She will benefit from skilled therapy services to meet the goals established for this plan of care as noted below. Classification Low Back Pain Subgroup Classification: Specific exercise subgroup: recommended visits 8. Specific Exercies Subgroup Classification based on: directional preference Goals for Episode of Care: created on 12/15/22 through 01/26/23 Independent in home exercises. Patient will decrease pain rating by 2 points to meet minimal clinical important difference for numeric pain rating scale. Restore pain-free lumbar active ROM grossly without limitation. Patient will be able to complete Standing / Walking / Stairs without an increase in pain/symptoms in 4-6 weeks to improve QOL. Patient will report an increase in duration ability to complete walking and standing for improved ADL/IADLs. Patient will demonstrate increase in trunk and RLE strength to 5/5 during manual muscle testing in order to improve function for basic self-care tasks, home management tasks, leisure / recreation skills, light functional tasks, and prior functional tasks. Patient Goals: Walk without pain. Planned Interventions, Frequency, and Duration: Current Frequency: 2x/week Duration: 4 weeks Total Number of Visits Planned: 8 Planned Treatment Interventions: Therapeutic exercise (43409), Neuromuscular re- education (18440), Manual therapy (88334), Therapeutic activities (00701), Self- long term management (25577), Patient/Family/Caregiver Education, Body Mechanics Training PLAN FOR NEXT VISIT: Assess current symptoms/where they have been and how HEP went; sci-fit for cardiovascular conditioning; neutral spine/core strengthening and flexion-based exercise for the low back. Patient demonstrates good understanding of plan of care and treatment. The above goals and plan of care were discussed and agreed upon by patient/family. SUBJECTIVE: Patient reports chronic and gradual worsening of R low back pain and pain down the RLE with walking/stairs/standing/all erect positions; states RLE numbness/tingling/pressure down the lateral aspect of the leg; states the bulk of the pain seems to settle at the lateral knee, does feel in from the back down to that area. Sitting and resting in her recliner seem to give her low back relief, seems like it takes all the pressure off. Patient Goals: Walk without pain. Functional Limitations: standing, walking, walking in the community, stair negotiation, physical activities, recreational activities Prior Level of Function: Independent without limitations Relevant History Past Relevant Medical Conditions: Hypertension, COPD (Obesity) Past Relevant Surgical Conditions: Total Knee Replacement-Right, Total Knee Replacement-Left, Comments Relevant Surgical Conditions Comments: Reports she needs reverse shoulder bilaterally. Employment: Retired Recreation / Current Exercise: None Intake Information: Prescription present Previous Treatment: Heat Falls Interview: No positive findings with falls interview Red Flags Vertebral Fracture Red Flags: Female, Age >70 Vertebral Fracture Clinical Reasoning: Proceed with caution due to the above (1- 2) risk factors Abdominal Aortic Aneurysm Red Flags: Age >60 Abdominal Aortic Aneurysm Clinical Reasoning: Proceed with caution Cancer Red Flags: Age >50 or <20 Cancer Clinical Reasoning: Proceed with caution Infection Clinical Reasoning: No identified risk factors. Cauda Equina Syndrome Clinical Reasoning: No identified risk factors. Red Flags - Cervical Cancer Red Flags: Age >50 or <20 Cancer Clinical Reasoning: Proceed with caution Infection Clinical Reasoning: No identified risk factors. Spine History Symptoms Location at Onset: Back Symptoms Since Onset: Worsening Pain is Worse Always: Standing, Walking, PM Pain is Better Always: Sitting, Rest Sleep Affected by Pain: Not affected by pain Pain: Pain Pain Level: 5 Pain Location: Low Back/Lumbar Spine - Right, Leg - Right Description: Pressure, Numbness, Tingling Frequency: Intermittent, Standing, Walking Post Treatment Pain Post Treatment Pain Level: Better Post Treatment Pain Location: Low Back/Lumbar Spine - Right, Leg - Right Post Treatment Symptoms: No pain following exercises and manual treatment. PROMIS Scales Higher is Better 12/13/2022 12/07/2022 Phys Func - Score - 38 (moderate dysfunction) Phys Func - Percentile - 12 % Self-Eff Symptom - Score 41 (Average) - Self-Eff Symptom - Percentile 18 % - T-scores: mean of general population = 50. 5 points is clinically meaningfully difference Percentiles provide an indication of how the patient's score ranks in relation to the general population. Higher percentile rankings indicate better function/quality of life. 50th percentile is the average of the general population and indicates half of respondents had a worse score. OBJECTIVE MEASURES WITH LEVEL OF FUNCTION: Spine Observations R Lumbar Spine Palpation Tenderness: Paraspinals, Gluteals L Lumbar Spine Palpation Tenderness: No tenderness noted Sensation - Lumbar Sensation: Grossly Intact Lumbar Spine AROM Lumbar Flexion: Minimal limitation, Centralizing Lumbar Extension: Minimal limitation, Peripheralizing Lumbar R Side-Bend: Minimal limitation Lumbar L Side-Bend: Minimal limitation Lumbar R Rotation: Minimal limitation Lumbar L Rotation: Minimal limitation LE Strength Trunk Strength: Poor R LE Strength: Grossly 4+/5 with no asymmetrical myotomal weakness. L LE Strength: Grossly 4+/5 with no asymmetrical myotomal weakness. Special Tests - Hip and Spine Hip and Spine Special Tests: SLR Test SLR Test: Right Negative, Left Negative Special Test Comments: Well's SLR (L & R Neg). Gait Gait: Independent Gait Device: None Gait Deviations: General Deviations General Deviations/Observations: Antalgic gait, Flexed trunk posture, Wide base of support Gait Observation: Flexed leaning forward posture. Education: Education Learning/educational needs: Lifestyle changes, Health promotion, Home exercise program, Plan of Care, Posture, Body Mechanics TREATMENT: PT Treatment Interventions: Therapeutic Exercise, Manual Therapy, Self-Assisted Management Evaluation Therapeutic Exercise: 1: *R SKC: 3x30 2: *DKC: 3x30 3: *TA Bracinx10, 5 hold. 4: *LTR: 1x10 ea. 5: *Seated Repeated L/S Flexion: 1x10. 6: *Discussed purpose of exercises, explained HEP handout. Skilled Intervention: Patient was educated in proper exercise technique and purpose for exercises. Reviewed and educated patient on additions/changes for home exercise program as above (*). Skilled judgment was used in selection of appropriate interventions. Provided written instruction for home exercise program to facilitate proper performance and compliance. Correct performance of therapeutic exercises was facilitated with verbal, visual, and tactile cuing. Manual Therapy: 1: Long [place] RLE Distraction: Pull to tolerance. 2: Manual L/S Belt Traction with caudal pull and knees propped 90/90 on stool: Pull to tolerance. Skilled Intervention: Manual skills to improve joint mobility, ROM, and decrease pain. Utilized anatomy knowledge of the therapist, and assessment of patient's response to intervention. Self-Assisted Management: 1: *Education about lumbar anatomy, general explanation of MRI findings, overview of stenosis with use of Lumbar Spine model. Educated in avoidance of aggravating positions and activities as able, and modification of ADLs/IADLs. 2: *Discussed therapy goals, exam findings, and role of PT in treating patients diagnosis and objective deficits. Skilled Intervention: Skilled judgment in the selection of proper modification for activity of daily living/home management based on clinical presentation, deficits, and needs. Reviewed patient specific diagnosis in relation to activities of daily living/home management. Activity progression based on professional judgement. Billing * Evaluation Low Complexity: 1 Unit Therapeutic Exercise Treatment Minutes: 12 Manual TherapyTreatment Minutes: 12 Self-Care/Home Management Treatment Minutes: 6 Skilled Treatment Time Minutes (timed and untimed codes): 47 Total Session Time (minutes): 47 Session Start Time : 1313 Session Stop Time : 1400 Vladislav Garcia PT documented in this encounterC[facility]10-[facility]23 Miscellaneous Notes* Telephone Encounter - Radha Martinez OCCA - 12/07/2022 1:48 PM EDT TC to patient who verbalized understanding of providers message and is agreeable to see Spine. Please contact patient and assist in scheduling. Thank you. MAIN Monique * Telephone Encounter - Katelynn Nielsen RN - 12/04/2022 8:42 AM EDT Called and left a voicemail for the Patient to call back and ask for a nurse to receive the providers message. Katelynn Nielsen RN * Telephone Encounter - Margaret Lomeli PA-C - 12/03/2022 8:14 PM EDT Let patient know that MRI does show severe canal narrowing in lumbar spine. Worse at L3-4 and L4-5. Also she has severe R sided impingement of the L5 nerve root which definitely could explain some ofher symptoms. I'm going to place on consult to our spine specialists for treatment options. documented in this encounterC[facility]10-05-2023 History of Present illness Narrative* Elba Donohue RT(R) - 12/03/2022 2:20 PM EDT Radiology Service Progress Note PATIENT NAME: Nia Kiran DATE OF SERVICE: December 03, 2022 TIME: 2:46 PM PATIENT IDENTITY VERIFICATION COMPLETED USING TWO (2) IDENTIFIERS: Name and Date of confirmedby patient verbally. FALL SCREENING: Has the patient had 2 falls in the last year or 1 fall with injury or currently using an Ambulatory Assistive Device (Walker, Cane, Wheelchair, Crutches, etc.)? No PATIENT GENDER DATA: Female. status: : No status: NO. PATIENT RELEVANT IMPLANT DATA REVIEWED: Yes RADIOLOGY DEPARTMENT: MR; Exam(s) Completed: Spine: Lumbar spine PERIPHERAL IV DATA: Not applicable SIGNED BY: RT Andressa(R) December 03, 2022 2:46 PM documented in this encounterCleveland [facility]09-05-2023 Miscellaneous Notes* Telephone Encounter - Macie dArian LPN - 11/03/2022 9:19 AM EDT Pt notified of results and instructions. Pt verbalizes understanding. Pt was transferred to schedule MRI. Macie Adrian LPN * Telephone Encounter - Margaret Lomeli PA-C - 11/03/2022 8:29 AM EDT Let patient know that EMG shows evidence of possible issues at the spinal level. I'm going to see if we can get a MRI completed to better evaluate this. documented in this encounterC[facility]09-01-2023 History of Present illness Narrative* Chuy Garduno DO - 10/30/2022 1:14 PM EDT UNIVERSAL PROTOCOL / SAFETY CHECKLIST Procedure to be Performed: EMG Sign In: A Moment of CARE was completed. Personnel directly involved with the procedure wore the appropriate PPE (Personal Protective Equipment). Patient/Surrogate Stated/Verified: PATIENT VERIFIED(optional for EMERGENT procedures): Patient name, Date of , Relevant allergies, and The intended procedure Time Out Communication: Intended patient and procedure match the source documents. Correct side/site marked and visible. Sign Out: SIGN OUT (optional for EMERGENT procedures): Post-procedure follow-up management communicated and Plan of Care Visit completed when applicable. Emilee Garduno DO documented in this encounterCleveland [facility]08-28-2023 Miscellaneous Notes* Telephone Encounter - Macie Adrian LPN - 10/26/2022 2:05 PM EDT Left message of same on pt's vm and also sent message via . Macie Adrian LPN * Telephone Encounter - Macie Adrian LPN - 10/26/2022 2:02 PM EDT ----- Message from Margaret Lomeli PA-C sent at 10/26/2022 1:38 PM EDT ----- Xray is normal documented in this encounterCleveland Clinic [facility]08-24-2023 History of Present illness Narrative* Tanya Valdovinos RT(R) - 10/22/2022 1:50 PM EDT Radiology Service Progress Note PATIENT NAME: Nia Kiran DATE OF SERVICE: October 22, 2022 TIME: 1:34 PM PATIENT IDENTITY VERIFICATION COMPLETED USING TWO (2) IDENTIFIERS: Name and Date of confirmedby patient verbally. FALL SCREENING: Has the patient had 2 falls in the last year or 1 fall with injury or currently using an Ambulatory Assistive Device (Walker, Cane, Wheelchair, Crutches, etc.)? No PATIENT GENDER DATA: Female. status: : No status: NO. PATIENT RELEVANT IMPLANT DATA REVIEWED: Not Applicable RADIOLOGY DEPARTMENT: General X-ray: Exam(s) Completed: Lower Extremity X- Ray(s): Knee, AP / Lat / Tunne / Merchant Right and Wt. Bearing PERIPHERAL IV DATA: Not applicable SIGNED BY: RT Parth(R) October 22, 2022 1:34 PM documented in this encounterCleveland [facility]08-24-2023 History of Present illness Narrative* Margaret Lomeli PA-C - 10/22/2022 1:10 PM EDT Chief Complaint Patient presents with: Pain: Right outer knee HPI Nia Kiran is a 71 year old female who presents here today for Above Complaints.. Patient continues to have R side knee and calf pain. Seems to improve if she rests, but as soon as she tries to do activity, the pain comes back. Describes the pain as dull ache. And can also cause shooting/numbness/tingling pain in calf. No injury. Past medical history, appointments, medications, allergies reviewed. Previous Medical History PAST MEDICAL HISTORY Diagnosis Date Acute pain of right shoulder 08/21/2022 Seeing Jade Santiago 07/2022 Advance directive discussed with patient 02/04/2022 Discussed 01/2022: up to date Allergic rhinitis 08/31/2013 Anxiety Common wart 01/21/2009 Constipation COPD (chronic obstructive pulmonary disease) (HCC) well controlled-managed by PCP Elevated fasting blood sugar 2016 Essential hypertension with goal blood pressure less than 140/90 06/27/2015 well controlled-managed by PCP Family history of malignant neoplasm of gastrointestinal tract Fatty liver Gastroesophageal reflux disease without esophagitis 06/04/2015 Hallux valgus (acquired) 04/12/2008 Hemorrhage of gastrointestinal tract, unspecified Hiatal hernia sliding History of knee replacement, total both Insomnia 06/04/2015 Living will on file at physician's office 02/04/2022 DPA: Alessandra (daughter) Medicare annual wellness visit, initial 11/04/2017 Medicare Part B: 09/29/2017 last done: 11/04/2018 Medicare annual wellness visit, initial 11/04/2017 Medicare Part B: 09/29/2017 last done: 11/10/2019 Medicare annual wellness visit, subsequent 11/04/2017 Medicare Part B: 09/29/2017 last done: 02/04/2022 Muscle spasm 12/14/2017 Uses prn flexeril OA (osteoarthritis) 08/31/2013 Sees Ortho for Shoulder: Dr. Mahoney Obesity, Class III, BMI 40-49.9 (morbid obesity) ([facility]) 05/04/2018 OSTEOARTHRITIS LOCALIZED, PRIMARY( Lower Leg) 07/22/2005 Other age-related cataract 07/27/[address] Turcios Other complications due to other internal orthopedic device, implant, and graft 07/03/2008 Other skin changes 01/21/[address] Turcios for twice a year skin checks Overactive bladder 08/31/2013 Prolonged Q-T interval on ECG 06/04/2015 Per cardio felt to be prozac related. Rheumatoid arthritis involving multiple sites with positive rheumatoid factor (HCC) 05/05/2018 Routine gynecological examination Dr. Schmidt Severe obstructive sleep apnea 05/24/2017 compliant with CPAP Symptomatic menopausal or female climacteric states 08/03/2011 Previous Surgical History PAST SURGICAL HISTORY Procedure Laterality Date ANESTHESIA CLOSED PROCEDURES KNEE JOINT 2006 LEFT ANKLE LEFT ARTHROSCOPY KNEE DIAGNOSTIC W/WO SYNOVIAL BX SPX Left 2006 CARDIAC CATH 05/19/2017 normal coronaries CATARACT EXTRACTION HX Bilateral 07/2018 and 08/2018 COLONOSCOPY FLX DX W/COLLJ SPEC WHEN PFRMD 10/04/2008 COLONOSCOPY FLX DX W/COLLJ SPEC WHEN PFRMD 12/07/2013 Colonoscopy, repeat 5 yrs COLONOSCOPY FLX DX W/COLLJ SPEC WHEN PFRMD 12/05/2018 Colonoscopy CORRECTION OF BUNION 04/2008 Left foot ESOPHAGOGASTRODUODENOSCOPY TRANSORAL DIAGNOSTIC 12/05/2018 EGD PAST SURGICAL HISTORY OF 2009 ligament surgery on both thumbs REPAIR ENTEROCELE,VAG APPRCH 04/18/2019 REPAIR OF RECTOCELE 04/18/2019 ROTATOR CUFF REPAIR 10/2012 left shouldar TOTAL KNEE REPLACEMENT 01/2009 right VAGINAL HYSTERECTOMY UTERUS 250 GM/< 2005 WITH TVT Family History FAMILY HISTORY Problem Relation Age of Onset Diabetes Mother Coronary Artery Disease Mother 80's Cancer Father Lung No Known Problems Daughter Leukemia Brother No Known Problems Brother Colon Cancer Brother other (Brain Aneurism) Brother other (Other) Brother Accident age 5 No Known Problems Daughter Blood Disease Daughter Essential Thrombocytosis and Von Willinbers Disease No Known Problems Daughter Patient Allergies ALLERGIES Allergen Reactions Morphine Rash And delusions Demerol [Meperidine* Itching Dilaudid [Hydromorp* Itching Percocet [Oxycodone* Unknown Poison Michelle Swelling, Itching, Other: See Comments nausea Vicodin [Hydrocodon* Unknown Current Medications Current Outpatient Medications on File Prior to Visit Medication Sig acetaminophen (TYLENOL ARTHRITIS PAIN) 650 mg CR tablet Take 650 mg by mouth every 8 hours as needed. magnesium carb,citrate,oxide (MAGNESIUM COMPLEX ORAL) Take by mouth. Taking 500 mg magnesium melatonin 10 mg cap Take by mouth as directed. cyclobenzaprine (FLEXERIL) 10 mg tablet Take once a day as needed for pain. zolpidem (AMBIEN) 10 mg Take 1 tablet by mouth at bedtime as needed for up to 180 days. For Insomnia. spironolactone (ALDACTONE) 25 mg tablet Take 1 tablet by mouth once daily. FLUoxetine (PROZAC) 40 mg capsule Take 1 capsule by mouth once daily. lisinopril (ZESTRIL) 10 mg tablet Take 1 tablet by mouth once daily. montelukast (SINGULAIR) 10 mg tablet Take 1 tablet by mouth daily at bedtime. omeprazole (PRILOSEC) 40 mg capsule Take 1 capsule by mouth once daily. meloxicam (MOBIC) 15 mg tablet Take 15 mg by mouth once daily. Last dose 06/16 estrogens conjugated (PREMARIN) 0.625 mg tablet Take 1 tablet by mouth two times a week. hydrOXYchloroQUINE (PLAQUENIL) 200 mg tablet Take 1 tablet by mouth twice daily. Per rheumatology (Patient taking differently: Take 200 mg by mouth twice daily. Last dose 06/16 will check with rheumatology (Dr. Lopez) on 06/08 at appointment) amoxicillin (POLYMOX, AMOXIL) 500 mg capsule Take 4 capsules by mouth as needed. Before dental procedures. mirabegron (MYRBETRIQ) 50 mg Tb24 Take by mouth every morning. LOW-DOSE ASPIRIN ORAL Take 81 mg by mouth once daily. Last dose 06/16 GLUCOSAMINE HCL/CHONDR PACHECO A NA (OSTEO BI-FLEX ORAL) Take by mouth once daily. Last dose 06/10 multivitamins(DAILY MULTIVITAMIN TAB) Take by mouth. Last dose 06/10 ascorbic acid(VITAMIN C 500 MG SR CAP) Take by mouth. Last dose 06/10 COLACE 100 MG CAP Take by mouth every morning. No current facility-administered medications on file prior to visit. Social History Social History Tobacco Use Smoking status: Never Smokeless tobacco: Never Vaping Use Vaping Use: Never used Substance Use Topics Alcohol use: Yes Comment: Rarely Drug use: No Review of Symptoms REVIEW OF SYSTEMS See hpi EXAM: BP 130/82 (BP Site: Right Arm, BP Position: Sitting, BP Cuff Size: Large Adult) Pulse 87 Temp 37.2 C (98.9 F) Resp 18 Wt 131.5 kg (290 lb) BMI 51.37 kg/m General Appearance: Well appearing, alert, in no acute distress, well-hydrated, well nourished.. Musculoskeletal: knee exam wnl. Scar from previous TKA noted.. Neurologic: decreased sensation to R Lateral Lower Ext. Unable to distinguish sharp/dull on lateralaspect. Reflexes and strength equal b/l.. Health Maintenance List BP CONTROLLED (<130/80) due on 11/09/2020 ADVANCE DIRECTIVE DISCUSSION due on 03/01/2022 DEPRESSION ASSESSMENT due on 03/01/2022 DTAP,TDAP,TD(1 - Tdap) due on 02/04/2023 COVID-19 VACCINE(4 - Pfizer series) due on 02/04/2023 INFLUENZA(1) due on 10/30/2022 MAMMOGRAM due on 03/27/2023 ANNUAL PCP TEAM CHRONIC DISEASE VISIT due on 08/06/2023 COLORECTAL CANCER SCREENING due on 12/06/2023 DIABETES SCREEN due on 08/05/2025 LIPID SCREEN due on 08/06/2027 BONE DENSITY Completed HEPATITIS C SCREENING Completed SHINGRIX VACCINE Completed PNEUMOCOCCAL: 65+ Completed Data reviewed ASSESSMENT/PLAN: 1. Right leg pain - ICD9: 729.5, ICD10: M79.604 (primary diagnosis) Will check xray of knee and set up EMG. - XR KNEE GENERAL 4V AP BOTH/PA BOTH/LAT/MERC RIGHT - EMG(NEURO/NI) 2. Chronic pain of right knee - ICD9: 719.46, 338.29, ICD10: M25.561, G89.29 As above - XR KNEE GENERAL 4V AP BOTH/PA BOTH/LAT/MERC RIGHT - EMG(NEURO/NI) 3. Numbness and tingling - ICD9: 782.0, ICD10: R20.0, R20.2 As above. - XR KNEE GENERAL 4V AP BOTH/PA BOTH/LAT/MERC RIGHT - EMG(NEURO/NI) Margaret Lomeli PA-C documented in this encounterC[facility] Miscellaneous Notes* Telephone Encounter - Marya Camp Ma - 08/18/2022 10:23 AM EDT Faxed order Marya Camp Ma * Telephone Encounter - Braulio Urrutia MD - 08/18/2022 10:21 AM EDT Script ready to be faxed. * Telephone Encounter - Marya Camp Ma - 08/18/2022 8:07 AM EDT Last order sent was 05/04/2018 under other orders Marya Camp Ma documented in this encounterC[facility]06-07-2023 History of Present illness Narrative* Margaret Lomeli PA-C - 08/05/2022 11:44 AM EDT Chief Complaint Patient presents with: 6 Month Exam HPI Nia Kiran is a 71 year old female who presents here today for Chronic Medical Conditions.. Patient with HTN, MARCELLE, constipation, Insomnia, elevated glucose, RA, OA, and those as below. Patient still having some R sciatica pain but improving. No wanting to pursue anything else treatment angel at this time. No other concerns today. Past medical history, appointments, medications, allergies reviewed. Previous Medical History PAST MEDICAL HISTORY Diagnosis Date Advance directive discussed with patient 02/04/2022 Discussed 01/2022: up to date Allergic rhinitis 08/31/2013 Anxiety Common wart 01/21/2009 Constipation COPD (chronic obstructive pulmonary disease) (HCC) well controlled-managed by PCP Elevated fasting blood sugar 2016 Essential hypertension with goal blood pressure less than 140/90 06/27/2015 well controlled-managed by PCP Family history of malignant neoplasm of gastrointestinal tract Fatty liver Gastroesophageal reflux disease without esophagitis 06/04/2015 Hallux valgus (acquired) 04/12/2008 Hemorrhage of gastrointestinal tract, unspecified Hiatal hernia sliding History of knee replacement, total both Insomnia 06/04/2015 Living will on file at physician's office 02/04/2022 DPA: Alessandra (daughter) Medicare annual wellness visit, initial 11/04/2017 Medicare Part B: 09/29/2017 last done: 11/04/2018 Medicare annual wellness visit, initial 11/04/2017 Medicare Part B: 09/29/2017 last done: 11/10/2019 Medicare annual wellness visit, subsequent 11/04/2017 Medicare Part B: 09/29/2017 last done: 02/04/2022 Muscle spasm 12/14/2017 Uses prn flexeril OA (osteoarthritis) 08/31/2013 Sees Ortho for Shoulder: Dr. Mahoney Obesity, Class III, BMI 40-49.9 (morbid obesity) (HCC) 05/04/2018 OSTEOARTHRITIS LOCALIZED, PRIMARY( Lower Leg) 07/22/2005 Other age-related cataract 07/27/[address] Turcios Other complications due to other internal orthopedic device, implant, and graft 07/03/2008 Other skin changes 01/21/[address] Turcios for twice a year skin checks Overactive bladder 08/31/2013 Prolonged Q-T interval on ECG 06/04/2015 Per cardio felt to be prozac related. Rheumatoid arthritis involving multiple sites with positive rheumatoid factor (HCC) 05/05/[address] Schmidt Severe obstructive sleep apnea 05/24/2017 compliant with CPAP Symptomatic menopausal or female climacteric states 08/03/2011 Previous Surgical History PAST SURGICAL HISTORY Procedure Laterality Date ANESTHESIA CLOSED PROCEDURES KNEE JOINT 2006 LEFT ANKLE LEFT ARTHROSCOPY KNEE DIAGNOSTIC W/WO SYNOVIAL BX SPX Left 2006 CARDIAC CATH 05/19/2017 normal coronaries CATARACT EXTRACTION HX Bilateral 07/2018 and 08/2018 COLONOSCOPY FLX DX W/COLLJ SPEC WHEN PFRMD 10/04/2008 COLONOSCOPY FLX DX W/COLLJ SPEC WHEN PFRMD 12/07/2013 Colonoscopy, repeat 5 yrs COLONOSCOPY FLX DX W/COLLJ SPEC WHEN PFRMD 12/05/2018 Colonoscopy CORRECTION OF BUNION 04/2008 Left foot ESOPHAGOGASTRODUODENOSCOPY TRANSORAL DIAGNOSTIC 12/05/2018 EGD PAST SURGICAL HISTORY OF 2009 ligament surgery on both thumbs REPAIR ENTEROCELE,VAG APPRCH 04/18/2019 REPAIR OF RECTOCELE 04/18/2019 ROTATOR CUFF REPAIR 10/2012 left shouldar TOTAL KNEE REPLACEMENT 01/2009 right VAGINAL HYSTERECTOMY UTERUS 250 GM/< 2005 WITH TVT Family History FAMILY HISTORY Problem Relation Age of Onset Diabetes Mother Coronary Artery Disease Mother 80's Cancer Father Lung No Known Problems Daughter Leukemia Brother No Known Problems Brother Colon Cancer Brother other (Brain Aneurism) Brother other (Other) Brother Accident age 5 No Known Problems Daughter Blood Disease Daughter Essential Thrombocytosis and Von Willinbers Disease No Known Problems Daughter Patient Allergies ALLERGIES Allergen Reactions Morphine Rash And delusions Demerol [Meperidine* Itching Dilaudid [Hydromorp* Itching Percocet [Oxycodone* Unknown Poison Michelle Swelling, Itching, Other: See Comments nausea Vicodin [Hydrocodon* Unknown Current Medications Current Outpatient Medications on File Prior to Visit Medication Sig acetaminophen (TYLENOL ARTHRITIS PAIN) 650 mg CR tablet Take 650 mg by mouth every 8 hours as needed. magnesium carb,citrate,oxide (MAGNESIUM COMPLEX ORAL) Take by mouth. Taking 500 mg magnesium melatonin 10 mg cap Take by mouth as directed. cyclobenzaprine (FLEXERIL) 10 mg tablet Take once a day as needed for pain. zolpidem (AMBIEN) 10 mg Take 1 tablet by mouth at bedtime as needed for up to 180 days. For Insomnia. spironolactone (ALDACTONE) 25 mg tablet Take 1 tablet by mouth once daily. FLUoxetine (PROZAC) 40 mg capsule Take 1 capsule by mouth once daily. lisinopril (ZESTRIL) 10 mg tablet Take 1 tablet by mouth once daily. montelukast (SINGULAIR) 10 mg tablet Take 1 tablet by mouth daily at bedtime. omeprazole (PRILOSEC) 40 mg capsule Take 1 capsule by mouth once daily. meloxicam (MOBIC) 15 mg tablet Take 15 mg by mouth once daily. Last dose 06/16 estrogens conjugated (PREMARIN) 0.625 mg tablet Take 1 tablet by mouth two times a week. hydrOXYchloroQUINE (PLAQUENIL) 200 mg tablet Take 1 tablet by mouth twice daily. Per rheumatology (Patient taking differently: Take 200 mg by mouth twice daily. Last dose 06/16 will check with rheumatology (Dr. Lopez) on 06/08 at appointment) amoxicillin (POLYMOX, AMOXIL) 500 mg capsule Take 4 capsules by mouth as needed. Before dental procedures. mirabegron (MYRBETRIQ) 50 mg Tb24 Take by mouth every morning. LOW-DOSE ASPIRIN ORAL Take 81 mg by mouth once daily. Last dose 06/16 GLUCOSAMINE HCL/CHONDR PACHECO A NA (OSTEO BI-FLEX ORAL) Take by mouth once daily. Last dose 06/10 multivitamins(DAILY MULTIVITAMIN TAB) Take by mouth. Last dose 06/10 ascorbic acid(VITAMIN C 500 MG SR CAP) Take by mouth. Last dose 06/10 COLACE 100 MG CAP Take by mouth every morning. zolpidem (AMBIEN) 10 mg Take 1 tablet by mouth at bedtime as needed (insomnia) for up to 20 days. No current facility-administered medications on file prior to visit. Social History Social History Tobacco Use Smoking status: Never Smokeless tobacco: Never Vaping Use Vaping Use: Never used Substance Use Topics Alcohol use: Yes Comment: Rarely Drug use: No Review of Symptoms REVIEW OF SYSTEMS GENERAL: No weight loss, malaise or fevers NECK: Negative for lumps, goiter, pain and significant neck swelling RESPIRATORY: Negative for cough, hemoptysis, wheezing, COPD, dyspnea or shortness of breath CARDIOVASCULAR: Negative for chest pain, leg swelling, hypertension, CHF or palpitations NEURO: No history of headaches, syncope, paralysis, seizures or tremors EXAM: BP 110/82 (BP Site: Left Arm, BP Position: Sitting, BP Cuff Size: Large Adult) Pulse 85 Temp 36.6 C (97.9 F) Resp 18 Wt 130.2 kg (287 lb) BMI 50.84 kg/m General Appearance: Well appearing, alert, in no acute distress, well-hydrated, well nourished. andMorbidly obese. Neck: Supple, no adenopathy; thyroid symmetric, normal size, no bruits. Lungs: Lungs clear to auscultation. No wheezing, rhonchi, rales.. Heart: RRR without murmur, gallop, or rubs. No ectopy. Extremities: No deformities, edema, skin discoloration, clubbing or cyanosis. Good capillary refill. . Peripheral Pulses: Normal. Health Maintenance List ADVANCE DIRECTIVE DISCUSSION due on 03/01/2022 DEPRESSION ASSESSMENT due on 03/01/2022 DTAP,TDAP,TD(1 - Tdap) due on 02/04/2023 COVID-19 VACCINE(4 - Booster for Pfizer series) due on 02/04/2023 MAMMOGRAM due on 03/27/2023 ANNUAL PCP TEAM CHRONIC DISEASE VISIT due on 06/06/2023 BP CONTROLLED (<130/80) due on 06/06/2023 COLORECTAL CANCER SCREENING due on 12/06/2023 DIABETES SCREEN due on 05/27/2025 LIPID SCREEN due on 01/28/2027 BONE DENSITY Completed INFLUENZA Completed HEPATITIS C SCREENING Completed SHINGRIX VACCINE Completed PNEUMOCOCCAL: 65+ Completed Data reviewed N/a ASSESSMENT/PLAN: 1. Essential hypertension with goal blood pressure less than 140/90 - ICD9: 401.9, ICD10: I10 (primary diagnosis) - Controlled - Continue current medications - Recommend home blood pressure monitoring, to bring results to next visit - Encouraged sodium restriction, DASH or Mediterranean diet - Recommend regular aerobic exercise 2. Elevated fasting blood sugar - ICD9: 790.21, ICD10: R73.01 Await labs 3. Rheumatoid arthritis involving multiple sites with positive rheumatoid factor (HCC) - ICD9: 714.0, ICD10: M05.79 Cont with rheum 4. Severe obstructive sleep apnea - ICD9: 327.23, ICD10: G47.33 stable 5. Obesity, Class III, BMI 40-49.9 (morbid obesity) ([facility]) - ICD9: 278.01, ICD10: E66.01 Weight decreasing - Behavioral intervention 6. Osteoarthritis of multiple joints, unspecified osteoarthritis type - ICD9: 715.89, ICD10: M15.9 Has appointment with jade santiago 7. Anxiety - ICD9: 300.00, ICD10: F41.9 stable 8. Medication management - ICD9: V58.69, ICD10: Z79.899 Follow up 6 months for wellness. Labs prior. Return sooner prn. Margaret Lomeli PA-C documented in this encounterC[facility]04-24-2023 Miscellaneous Notes* Telephone Encounter - Braulio Urrutia MD - 06/22/2022 8:39 AM EDT The following approved medication requests have been transmitted electronically. Requested Prescriptions Signed Prescriptions Disp Refills cyclobenzaprine (FLEXERIL) 10 mg tablet 90 tablet 1 Sig: Take once a day as needed for pain. Authorizing Provider: BRAULIO URRUTIA zolpidem (AMBIEN) 10 mg 90 tablet 1 Sig: Take 1 tablet by mouth at bedtime as needed for up to 180 days. For Insomnia. Authorizing Provider: BRAULIO URRUTIA spironolactone (ALDACTONE) 25 mg tablet 90 tablet 1 Sig: Take 1 tablet by mouth once daily. Authorizing Provider: BRAULIO URRUTIA FLUoxetine (PROZAC) 40 mg capsule 90 capsule 1 Sig: Take 1 capsule by mouth once daily. Authorizing Provider: BRAULIO URRUTIA lisinopril (ZESTRIL) 10 mg tablet 90 tablet 1 Sig: Take 1 tablet by mouth once daily. Authorizing Provider: BRAULIO URRUTIA montelukast (SINGULAIR) 10 mg tablet 90 tablet 1 Sig: Take 1 tablet by mouth daily at bedtime. Authorizing Provider: BRAULIO URRUTIA omeprazole (PRILOSEC) 40 mg capsule 90 capsule 1 Sig: Take 1 capsule by mouth once daily. Authorizing Provider: BRAULIO URRUTIA MD PDMP website checked and validated. All prescriptions have been APPROPRIATELY filled. No suspiciousactivity was identified. 06/22/2022 by Braulio Urrutia MD * Telephone Encounter - Macie Adrian LPN - 06/22/2022 7:20 AM EDT SILVIA 06/05/22 NOV 08/05/22 Macie Adrian LPN documented in this encounterC[facility]04-19-2023 Miscellaneous Notes* Telephone Encounter - Braulio Urrutia MD - 06/17/2022 3:49 PM EDT The following approved medication requests have been transmitted electronically. Requested Prescriptions Signed Prescriptions Disp Refills predniSONE (DELTASONE) 10 mg tablet 39 tablet 0 Sig: Take 6 tabs by mouth for 3 days then 4 tabs a day for 3 days then 2 tabs a day for 3 days and then 1 tab a day for 3 days. Braulio Urrutia MD documented in this encounterCleveland [facility]04-13-2023 Miscellaneous Notes* Telephone Encounter - Sheridan Escobedo MA - 06/11/2022 8:19 AM EDT Left detailed message for patient. Information faxed. Sheridan Escobedo MA * Telephone Encounter - Braulio Urrutia MD - 06/10/2022 7:50 PM EDT Let patient know stress test was normal. She is clear for surgery and info will be faxed to surgeon. * Telephone Encounter - Sheridan Escobedo MA - 06/10/2022 5:12 PM EDT Scan on 06/10/2022 3:47 PM by External Provider: Stress Test Please review. Sheridan Escobedo MA documented in this encounterCleveland Clinic [facility]04-12-2023 NoteHNO ID: [id number] Author: RT Lucy(R) Service: Nuclear Medicine Author Type: Technologist Type: Progress Notes Filed: 06/10/2022 1:05 PM Note Text: RADIOLOGY SERVICE PROGRESS NOTE SERVICE DATE: 06/10/2022 SERVICE TIME: 1:03 PM PATIENT IDENTITY VERIFICATION COMPLETED USING TWO (2) STANDARD IDENTIFIERS: Name and Date of confirmed by patient verbally FALL SCREENING: Has the patient had 2 falls in the last year or 1 fall with injury or currently using an Ambulatory Assistive Device (Walker, Cane, Wheelchair, Crutches, etc.)? No PATIENT GENDER DATA: .female : No ALLERGIES: Reviewed and unchanged MEDICATIONS REVIEWED: Yes PATIENT RELEVANT IMPLANT DATA REVIEWED: Not Applicable CREATININE: Creatinine Date Value Ref Range Status 05/27/2022 0.94 0.51 - 0.95 mg/dL Final Comment: Patients receiving either N-Acetylcysteine (NAC) or Metamizole prior to venipuncture, may have falsely depressed results. 02/04/2022 0.86 0.58 - 0.96 mg/dL Final 01/28/2022 0.96 0.58 - 0.96 mg/dL Final Estimated Glomerular Filtration Rate Date Value Ref Range Status 05/27/2022 66 >=60 mL/min/1.73m? Final Comment: Estimated Glomerular Filtration Rate (eGFR) is calculated using the 2020 CKD-EPI creatinine equation. This equation utilizes serum creatinine, sex, and age as parameters. The creatinine assay has traceable calibration to isotope dilution-mass spectrometry. Refer to KDIGO guidelines for clinical interpretation. In patients with unstable renal function, e.g. those with acute kidney injury, the eGFR may not accurately reflect actual GFR. eGFR- Date Value Ref Range Status 03/14/2021 >60 Final P.O.C.T. RESULTS: N/A June 10, [address] PERFORMED: No IV SITE: Ambulatory: A peripheral IV was started in the Right antecubital site with a Angio cath: 22 gauge. POST EXAM PIV STATUS: Discontinued PROCEDURE TYPE: NM Stress: 16.2 mCi [id number] was administered IV for Rest Imaging at 1110 by ty. 47.8 mCi [id number] was administered IV for Stress Imaging at 1300 by ms. ADMINISTRATION TIME: 1300 PATIENT DISCHARGED TO: Ambulatory patient, left [place] department area. A Diagnostic radioactive procedure has taken place, with no further precautions necessary other than routine body substance precautions. More information regarding radiation safety can be found using this link: [email or web address] SIGNATURE: RT Lucy(R) PATIENT NAME: Nia Kiran DATE: June 10, 2022 TIME: 1:03 PM PAGER/CONTACT #:[facility]04-12-2023 History of Present illness Narrative* RT Lucy(R) - 06/10/2022 11:30 AM EDT RADIOLOGY SERVICE PROGRESS NOTE SERVICE DATE: 06/10/2022 SERVICE TIME: 1:03 PM PATIENT IDENTITY VERIFICATION COMPLETED USING TWO (2) STANDARD IDENTIFIERS: Name and Date of confirmed by patient verbally FALL SCREENING: Has the patient had 2 falls in the last year or 1 fall with injury or currently using an Ambulatory Assistive Device (Walker, Cane, Wheelchair, Crutches, etc.)? No PATIENT GENDER DATA: .female : No ALLERGIES: Reviewed and unchanged MEDICATIONS REVIEWED: Yes PATIENT RELEVANT IMPLANT DATA REVIEWED: Not Applicable CREATININE: Creatinine Date Value Ref Range Status 05/27/2022 0.94 0.51 - 0.95 mg/dL Final Comment: Patients receiving either N-Acetylcysteine (NAC) or Metamizole prior to venipuncture, may have falsely depressed results. 02/04/2022 0.86 0.58 - 0.96 mg/dL Final 01/28/2022 0.96 0.58 - 0.96 mg/dL Final Estimated Glomerular Filtration Rate Date Value Ref Range Status 05/27/2022 66 >=60 mL/min/1.73m Final Comment: Estimated Glomerular Filtration Rate (eGFR) is calculated using the 2020 CKD-EPI creatinine equation. This equation utilizes serum creatinine, sex, and age as parameters. The creatinine assay has traceable calibration to isotope dilution- mass spectrometry. Refer to KDIGO guidelines for clinical interpretation. In patients with unstable renal function, e.g. those with acute kidney injury, the eGFRmay not accurately reflect actual GFR. eGFR- Date Value Ref Range Status 03/14/2021 >60 Final P.O.C.T. RESULTS: N/A June 10, [address] PERFORMED: No IV SITE: Ambulatory: A peripheral IV was started in the Right antecubital site with a Angio cath: 22 gauge. POST EXAM PIV STATUS: Discontinued PROCEDURE TYPE: NM Stress: 16.2 mCi [id number] was administered IV for Rest Imaging at 1110 by ty. 47.8 mCi [id number] was administered IV for Stress Imaging at 1300 by ms. ADMINISTRATION TIME: 1300 PATIENT DISCHARGED TO: Ambulatory patient, left [place] department area. A Diagnostic radioactive procedure has taken place, with no further precautions necessary other than routine body substance precautions. More information regarding radiation safety can be found usingthis link: [email or web address]%[email or web address] SIGNATURE: RT Lucy(Jose) PATIENT NAME: Nia Kiran DATE: June 10, 2022 TIME: 1:03 PM PAGER/CONTACT #: documented in this encounterCleveland Clinic [facility]04-12-2023 Nurse Note* Tasha Nicole RN - 06/10/2022 11:30 AM EDT Jelco #22 Right AC. Lexiscan Nuclear Stress Test Explained And Questions Answered Prior To Testing.Shayna D/C'ed Post Test. documented in this encounterCleveland Clinic [facility]04-07-2023 History of Present illness Narrative* Margaret Lomeli PA-C - 06/05/2022 7:32 AM EDT Chief Complaint Patient presents with: Numbness: Right leg HPI Nia Kiran is a 71 year old female who presents here today for Right leg numbness and tingling. Patient states that for the past 2 months she had noted R leg n/t. States it shoots from her thigh to her foot. No injury. Pain is okay at rest but returns with certain movements. Pain is more dull. No current back pain. Past medical history, appointments, medications, allergies reviewed. Previous Medical History PAST MEDICAL HISTORY Diagnosis Date Advance directive discussed with patient 02/04/2022 Discussed 01/2022: up to date Allergic rhinitis 08/31/2013 Anxiety Common wart 01/21/2009 Constipation COPD (chronic obstructive pulmonary disease) ([facility]) well controlled-managed by PCP Elevated fasting blood sugar 2016 Essential hypertension with goal blood pressure less than 140/90 06/27/2015 well controlled-managed by PCP Family history of malignant neoplasm of gastrointestinal tract Fatty liver Gastroesophageal reflux disease without esophagitis 06/04/2015 Hallux valgus (acquired) 04/12/2008 Hemorrhage of gastrointestinal tract, unspecified Hiatal hernia sliding History of knee replacement, total both Insomnia 06/04/2015 Living will on file at physician's office 02/04/2022 DPA: Alessandra (daughter) Medicare annual wellness visit, initial 11/04/2017 Medicare Part B: 09/29/2017 last done: 11/04/2018 Medicare annual wellness visit, initial 11/04/2017 Medicare Part B: 09/29/2017 last done: 11/10/2019 Medicare annual wellness visit, subsequent 11/04/2017 Medicare Part B: 09/29/2017 last done: 02/04/2022 Muscle spasm 12/14/2017 Uses prn flexeril OA (osteoarthritis) 08/31/2013 Sees Ortho for Shoulder: Dr. Mahoney Obesity, Class III, BMI 40-49.9 (morbid obesity) (HCC) 05/04/2018 OSTEOARTHRITIS LOCALIZED, PRIMARY( Lower Leg) 07/22/2005 Other age-related cataract 07/27/[address] Turcios Other complications due to other internal orthopedic device, implant, and graft 07/03/2008 Other skin changes 01/21/[address] Turcios for twice a year skin checks Overactive bladder 08/31/2013 Prolonged Q-T interval on ECG 06/04/2015 Per cardio felt to be prozac related. Rheumatoid arthritis involving multiple sites with positive rheumatoid factor (HCC) 05/05/[address] Schmidt Severe obstructive sleep apnea 05/24/2017 compliant with CPAP Symptomatic menopausal or female climacteric states 08/03/2011 Previous Surgical History PAST SURGICAL HISTORY Procedure Laterality Date ANESTHESIA CLOSED PROCEDURES KNEE JOINT 2006 LEFT ANKLE LEFT ARTHROSCOPY KNEE DIAGNOSTIC W/WO SYNOVIAL BX SPX Left 2006 CARDIAC CATH 05/19/2017 normal coronaries CATARACT EXTRACTION HX Bilateral 07/2018 and 08/2018 COLONOSCOPY FLX DX W/COLLJ SPEC WHEN PFRMD 10/04/2008 COLONOSCOPY FLX DX W/COLLJ SPEC WHEN PFRMD 12/07/2013 Colonoscopy, repeat 5 yrs COLONOSCOPY FLX DX W/COLLJ SPEC WHEN PFRMD 12/05/2018 Colonoscopy CORRECTION OF BUNION 04/2008 Left foot ESOPHAGOGASTRODUODENOSCOPY TRANSORAL DIAGNOSTIC 12/05/2018 EGD PAST SURGICAL HISTORY OF 2009 ligament surgery on both thumbs REPAIR ENTEROCELE,VAG APPRCH 04/18/2019 REPAIR OF RECTOCELE 04/18/2019 ROTATOR CUFF REPAIR 10/2012 left shouldar TOTAL KNEE REPLACEMENT 01/2009 right VAGINAL HYSTERECTOMY UTERUS 250 GM/< 2005 WITH TVT Family History FAMILY HISTORY Problem Relation Age of Onset Diabetes Mother Coronary Artery Disease Mother 80's Cancer Father Lung No Known Problems Daughter Leukemia Brother No Known Problems Brother Colon Cancer Brother other (Brain Aneurism) Brother other (Other) Brother Accident age 5 No Known Problems Daughter Blood Disease Daughter Essential Thrombocytosis and Von Willinbers Disease No Known Problems Daughter Patient Allergies ALLERGIES Allergen Reactions Morphine Rash And delusions Demerol [Meperidine* Itching Dilaudid [Hydromorp* Itching Percocet [Oxycodone* Unknown Poison Michelle Swelling, Itching, Other: See Comments nausea Vicodin [Hydrocodon* Unknown Current Medications Current Outpatient Medications on File Prior to Visit Medication Sig cyclobenzaprine (FLEXERIL) 10 mg tablet Take once a day as needed for pain. zolpidem (AMBIEN) 10 mg Take 1 tablet by mouth at bedtime as needed for up to 180 days. For Insomnia. spironolactone (ALDACTONE) 25 mg tablet Take 1 tablet by mouth once daily. (Patient taking differently: Take 25 mg by mouth every morning.) FLUoxetine (PROZAC) 40 mg capsule Take 1 capsule by mouth once daily. (Patient taking differently: Take 40 mg by mouth every morning.) lisinopril (ZESTRIL, PRINIVIL) 10 mg tablet Take 1 tablet by mouth once daily. (Patient taking differently: Take 10 mg by mouth every morning.) montelukast (SINGULAIR) 10 mg tablet Take 1 tablet by mouth daily at bedtime. omeprazole (PRILOSEC) 40 mg capsule Take 1 capsule by mouth once daily. (Patient taking differently: Take 40 mg by mouth every evening.) meloxicam (MOBIC) 15 mg tablet Take 15 mg by mouth once daily. Last dose 06/16 estrogens conjugated (PREMARIN) 0.625 mg tablet Take 1 tablet by mouth two times a week. hydrOXYchloroQUINE (PLAQUENIL) 200 mg tablet Take 1 tablet by mouth twice daily. Per rheumatology (Patient taking differently: Take 200 mg by mouth twice daily. Last dose 06/16 will check with rheumatology (Dr. Lopez) on 06/08 at appointment) amoxicillin (POLYMOX, AMOXIL) 500 mg capsule Take 4 capsules by mouth as needed. Before dental procedures. mirabegron (MYRBETRIQ) 50 mg Tb24 Take by mouth every morning. LOW-DOSE ASPIRIN ORAL Take 81 mg by mouth once daily. Last dose 06/16 GLUCOSAMINE HCL/CHONDR PACHECO A NA (OSTEO BI-FLEX ORAL) Take by mouth once daily. Last dose 06/10 multivitamins(DAILY MULTIVITAMIN TAB) Take by mouth. Last dose 06/10 ascorbic acid(VITAMIN C 500 MG SR CAP) Take by mouth. Last dose 06/10 COLACE 100 MG CAP Take by mouth every morning. zolpidem (AMBIEN) 10 mg Take 1 tablet by mouth at bedtime as needed (insomnia) for up to 20 days. No current facility-administered medications on file prior to visit. Social History Social History Tobacco Use Smoking status: Never Smokeless tobacco: Never Vaping Use Vaping Use: Never used Substance Use Topics Alcohol use: Yes Comment: Rarely Drug use: No Review of Symptoms REVIEW OF SYSTEMS See hpi EXAM: BP 106/76 (BP Site: Left Arm, BP Position: Sitting, BP Cuff Size: Large Adult) Pulse 88 Temp 36.3 C (97.4 F) Resp 18 Wt 133.8 kg (295 lb) BMI 52.26 kg/m General Appearance: Well appearing, alert, in no acute distress, well-hydrated, well nourished.. Musculoskeletal: no pain to palp. +SLR for mild pain. No n/t. NVI. . Health Maintenance List BP CONTROLLED (<130/80) due on 11/09/2020 ADVANCE DIRECTIVE DISCUSSION due on 03/01/2022 DEPRESSION ASSESSMENT due on 03/01/2022 DTAP,TDAP,TD(1 - Tdap) due on 02/04/2023 COVID-19 VACCINE(4 - Booster for Pfizer series) due on 02/04/2023 MAMMOGRAM due on 03/27/2023 ANNUAL PCP TEAM CHRONIC DISEASE VISIT due on 05/30/2023 COLORECTAL CANCER SCREENING due on 12/06/2023 DIABETES SCREEN due on 05/27/2025 LIPID SCREEN due on 01/28/2027 BONE DENSITY Completed INFLUENZA Completed HEPATITIS C SCREENING Completed SHINGRIX VACCINE Completed PNEUMOCOCCAL: 65+ Completed Data reviewed ASSESSMENT/PLAN: 1. Right sided sciatica - ICD9: 724.3, ICD10: M54.31 Sciatica Symptoms consistent with sciatica. Discussed Physical Therapy but patient currently preparing for left shoulder surgery and is gettingstress test soon. She cannot take NSAIDs or steroids prior to surgery. Will have patient doing some home exercises and I advise her to return if symptoms continue once she is recovered from upcoming surgery. Margaret Lomeli PA-C documented in [facility] encounterC[facility] History of Present illness Narrative* Braulio Urrutia MD - 05/29/2022 12:39 PM EDT Chief Complaint Patient presents with: Pre-Op Exam HPI Nia Kiran is a 71 year old female who presents here today for pre op for reverse left total shoulder arthroplasty with [facility]. Patient has completed labs and EKG. Patient with Hx of HTN, elevated A1c, RA, Obesity and is scheduled to have a Reverse left total shoulder replacement with Dr. Mahoney at [facility] on 06/24/2022. Past medical history, appointments, medications, allergies reviewed. Previous Medical History PAST MEDICAL HISTORY Diagnosis Date Advance directive discussed with patient 02/04/2022 Discussed 01/2022: up to date Allergic rhinitis 08/31/2013 Anxiety Common wart 01/21/2009 Constipation COPD (chronic obstructive pulmonary disease) ([facility]) well controlled-managed by PCP Elevated fasting blood sugar 2016 Essential hypertension with goal blood pressure less than 140/90 06/27/2015 well controlled-managed by PCP Family history of malignant neoplasm of gastrointestinal tract Fatty liver Gastroesophageal reflux disease without esophagitis 06/04/2015 Hallux valgus (acquired) 04/12/2008 Hemorrhage of gastrointestinal tract, unspecified Hiatal hernia sliding History of knee replacement, total both Insomnia 06/04/2015 Living will on file at physician's office 02/04/2022 DPA: Alessandra (daughter) Medicare annual wellness visit, initial 11/04/2017 Medicare Part B: 09/29/2017 last done: 11/04/2018 Medicare annual wellness visit, initial 11/04/2017 Medicare Part B: 09/29/2017 last done: 11/10/2019 Medicare annual wellness visit, subsequent 11/04/2017 Medicare Part B: 09/29/2017 last done: 02/04/2022 Muscle spasm 12/14/2017 Uses prn flexeril OA (osteoarthritis) 08/31/2013 Sees Ortho for Shoulder: Dr. Mahoney Obesity, Class III, BMI 40-49.9 (morbid obesity) ([facility]) 05/04/2018 OSTEOARTHRITIS LOCALIZED, PRIMARY( Lower Leg) 07/22/2005 Other age-related cataract 07/27/[address] Turcios Other complications due to other internal orthopedic device, implant, and graft 07/03/2008 Other skin changes 01/21/[address] Turcios for twice a year skin checks Overactive bladder 08/31/2013 Prolonged Q-T interval on ECG 06/04/2015 Per cardio felt to be prozac related. Rheumatoid arthritis involving multiple sites with positive rheumatoid factor ([facility]) 05/05/[address] Schmidt Severe obstructive sleep apnea 05/24/2017 compliant with CPAP Symptomatic menopausal or female climacteric states 08/03/2011 Previous Surgical History PAST SURGICAL HISTORY Procedure Laterality Date ANESTHESIA CLOSED PROCEDURES KNEE JOINT 2006 LEFT ANKLE LEFT ARTHROSCOPY KNEE DIAGNOSTIC W/WO SYNOVIAL BX SPX Left 2006 CARDIAC CATH 05/19/2017 normal coronaries CATARACT EXTRACTION HX Bilateral 07/2018 and 08/2018 COLONOSCOPY FLX DX W/COLLJ SPEC WHEN PFRMD 10/04/2008 COLONOSCOPY FLX DX W/COLLJ SPEC WHEN PFRMD 12/07/2013 Colonoscopy, repeat 5 yrs COLONOSCOPY FLX DX W/COLLJ SPEC WHEN PFRMD 12/05/2018 Colonoscopy CORRECTION OF BUNION 04/2008 Left foot ESOPHAGOGASTRODUODENOSCOPY TRANSORAL DIAGNOSTIC 12/05/2018 EGD PAST SURGICAL HISTORY OF 2009 ligament surgery on both thumbs REPAIR ENTEROCELE,VAG APPRCH 04/18/2019 REPAIR OF RECTOCELE 04/18/2019 ROTATOR CUFF REPAIR 10/2012 left shouldar TOTAL KNEE REPLACEMENT 01/2009 right VAGINAL HYSTERECTOMY UTERUS 250 GM/< 2005 WITH TVT Family History FAMILY HISTORY Problem Relation Age of Onset Diabetes Mother Coronary Artery Disease Mother 80's Cancer Father Lung No Known Problems Daughter Leukemia Brother No Known Problems Brother Colon Cancer Brother other (Brain Aneurism) Brother other (Other) Brother Accident age 5 No Known Problems Daughter Blood Disease Daughter Essential Thrombocytosis and Von Willinbers Disease No Known Problems Daughter Patient Allergies ALLERGIES Allergen Reactions Morphine Rash And delusions Demerol [Meperidine* Itching Dilaudid [Hydromorp* Itching Percocet [Oxycodone* Unknown Poison Michelle Swelling, Itching, Other: See Comments nausea Vicodin [Hydrocodon* Unknown Current Medications Current Outpatient Medications on File Prior to Visit Medication Sig cyclobenzaprine (FLEXERIL) 10 mg tablet Take once a day as needed for pain. zolpidem (AMBIEN) 10 mg Take 1 tablet by mouth at bedtime as needed for up to 180 days. For Insomnia. spironolactone (ALDACTONE) 25 mg tablet Take 1 tablet by mouth once daily. (Patient taking differently: Take 25 mg by mouth every morning.) FLUoxetine (PROZAC) 40 mg capsule Take 1 capsule by mouth once daily. (Patient taking differently: Take 40 mg by mouth every morning.) lisinopril (ZESTRIL, PRINIVIL) 10 mg tablet Take 1 tablet by mouth once daily. (Patient taking differently: Take 10 mg by mouth every morning.) montelukast (SINGULAIR) 10 mg tablet Take 1 tablet by mouth daily at bedtime. omeprazole (PRILOSEC) 40 mg capsule Take 1 capsule by mouth once daily. (Patient taking differently: Take 40 mg by mouth every evening.) zolpidem (AMBIEN) 10 mg Take 1 tablet by mouth at bedtime as needed (insomnia) for up to 20 days. meloxicam (MOBIC) 15 mg tablet Take 15 mg by mouth once daily. Last dose 06/16 estrogens conjugated (PREMARIN) 0.625 mg tablet Take 1 tablet by mouth two times a week. hydrOXYchloroQUINE (PLAQUENIL) 200 mg tablet Take 1 tablet by mouth twice daily. Per rheumatology (Patient taking differently: Take 200 mg by mouth twice daily. Last dose 06/16 will check with rheumatology (Dr. Lopez) on 06/08 at appointment) amoxicillin (POLYMOX, AMOXIL) 500 mg capsule Take 4 capsules by mouth as needed. Before dental procedures. mirabegron (MYRBETRIQ) 50 mg Tb24 Take by mouth every morning. LOW-DOSE ASPIRIN ORAL Take 81 mg by mouth once daily. Last dose 06/16 GLUCOSAMINE HCL/CHONDR PACHECO A NA (OSTEO BI-FLEX ORAL) Take by mouth once daily. Last dose 06/10 multivitamins(DAILY MULTIVITAMIN TAB) Take by mouth. Last dose 06/10 ascorbic acid(VITAMIN C 500 MG SR CAP) Take by mouth. Last dose 06/10 COLACE 100 MG CAP Take by mouth every morning. No current facility-administered medications on file prior to visit. Social History Social History Tobacco Use Smoking status: Never Smokeless tobacco: Never Vaping Use Vaping Use: Never used Substance Use Topics Alcohol use: Yes Comment: Rarely Drug use: No Review of Symptoms REVIEW OF SYSTEMS GENERAL: No weight loss, malaise or fevers HEENT: Negative for frequent or significant headaches, No changes in hearing or vision, no nose bleeds or other nasal problems NECK: Negative for lumps, goiter, pain and significant neck swelling RESPIRATORY: Negative for cough, hemoptysis, wheezing, COPD, dyspnea or shortness of breath CARDIOVASCULAR: Negative for chest pain, leg swelling, hypertension, CHF or palpitations GI: No nausea, vomiting, or diarrhea : No history of dysuria, no blood MUSCULOSKELETAL: left shoulder pain SKIN: Negative for lesions, rash, and itching HEMATOLOGY/LYMPHOLOGY: Negative for prolonged bleeding, bruising easily or swollen nodes NEURO: No history of headaches, syncope, paralysis, seizures or tremors EXAM: BP 132/88 (BP Site: Left Arm, BP Position: Sitting, BP Cuff Size: Large Adult) Pulse 80 Wt 134.7 kg (297 lb) BMI 52.61 kg/m Last 5 Encounter Wt Readings: Date: Wt: 05/29/2022 134.7 kg (297 lb) 05/27/2022 133.9 kg (295 lb 3.2 oz) 04/10/2022 131.5 kg (290 lb) 02/04/2022 132.5 kg (292 lb 3.2 oz) 07/25/2021 126.6 kg (279 lb) General Appearance: Well appearing, alert, in no acute distress, well-hydrated, well nourished. andMorbidly obese. Skin: Skin color, texture, turgor normal, no suspicious rashes or lesions. Head: Normocephalic, no masses, lesions, tenderness or abnormalities. Eyes: Anicteric sclera. Pupils are equally round and reactive to light. Extraocular movements are intact. . Ears: External ears normal, canals clear. Neck: Supple, no adenopathy; thyroid symmetric, normal size, no bruits. Lungs: Lungs clear to auscultation. No wheezing, rhonchi, rales.. Heart: RRR without murmur, gallop, or rubs. No ectopy. Abdomen: Normal abdominal exam, Abdomen soft, non-tender. Bowel sounds normal. No masses, organomegaly. Extremities: No deformities, edema, skin discoloration, Good capillary refill. . Musculoskeletal: No joint swelling, deformity, or tenderness. Peripheral Pulses: Normal. Neurologic: Gait normal. Reflexes normal and symmetric. Sensation to light touch and crainal nerves2-12 intact.. Health Maintenance List ADVANCE DIRECTIVE DISCUSSION due on 03/01/2022 DEPRESSION ASSESSMENT due on 03/01/2022 DTAP,TDAP,TD(1 - Tdap) due on 02/04/2023 COVID-19 VACCINE(4 - Booster for Pfizer series) due on 02/04/2023 ANNUAL PCP TEAM CHRONIC DISEASE VISIT due on 02/04/2023 MAMMOGRAM due on 03/27/2023 BP CONTROLLED (<130/80) due on 05/28/2023 COLORECTAL CANCER SCREENING due on 12/06/2023 DIABETES SCREEN due on 05/27/2025 LIPID SCREEN due on 01/28/2027 BONE DENSITY Completed INFLUENZA Completed HEPATITIS C SCREENING Completed SHINGRIX VACCINE Completed PNEUMOCOCCAL: 65+ Completed Data reviewed EKG: Showed a new LBBB compared to previous EKG's Component Latest Ref Rng & Units 05/27/2022 WBC 3.70 - 11.00 k/uL 3.39 (L) RBC 3.90 - 5.20 m/uL 3.76 (L) Hemoglobin 11.5 - 15.5 g/dL 12.0 Hematocrit 36.0 - 46.0 % 36.8 MCV 80.0 - 100.0 fL 97.9 MCH 26.0 - 34.0 pg 31.9 MCHC 30.5 - 36.0 g/dL 32.6 RDW-CV 11.5 - 15.0 % 12.4 Platelet Count 150 - 400 k/uL 281 MPV 9.0 - 12.7 fL 9.0 Neut% % 66.4 Abs Neut (ANC) 1.45 - 7.50 k/uL 2.25 Lymph% % 21.2 Abs Lymph 1.00 - 4.00 k/uL 0.72 (L) Drew% % 8.3 Abs Drew <0.87 k/uL 0.28 Eosin% % 3.5 Abs Eosin <0.46 k/uL 0.12 Baso% % 0.6 Abs Baso <0.11 k/uL <0.03 Immature Gran % % 0.0 IMMATURE GRANS (ABS) <0.10 k/uL <0.03 NRBC /100 WBC 0.0 Absolute nRBC <0.01 k/uL <0.01 DTYPE Auto Color Yellow Straw Clarity Clear Clear Glucose, Urine Negative Negative Bilirubin, Urine Negative Negative Ketones, Urine Negative Negative Specific [place], Ur 1.005 - 1.030 1.008 Hemoglobin/Blood,Ur Negative Negative pH, Urine 5.0 - 8.0 5.0 Protein, Urine Negative Negative Urobilinogen Negative Negative Nitrites Negative Negative Leukest Negative Negative WBC, Urine 0-5 /HPF 0-5 /HPF RBC, Urine 0-3 /HPF 0-3 /HPF Bacteria None Seen /HPF None Seen Epithelial Cells /HPF Few Glucose 70 - 100 mg/dL 106 (H) BUN 7 - 26 mg/dL 20 Creatinine 0.51 - 0.95 mg/dL 0.94 Sodium 136 - 145 mmol/L 137 Potassium 3.5 - 5.1 mmol/L 4.8 Chloride 98 - 107 mmol/L 103 CO2 21 - 32 mmol/L 30 Anion Gap 5 - 16 mmol/L 4 (L) Calcium 8.5 - 10.5 mg/dL 9.1 eGFR >=60 mL/min/1.73m 66 Hemoglobin A1C 4.3 - 6.0 % 5.8 Estimated Average Glucose mg/dL 120 PT Sec 9.7 - 13.0 sec 9.9 PT INR 0.9 - 1.3 1.0 APTT 23.0 - 32.4 sec 26.5 A/P ASSESSMENT/PLAN: 1. Pre-op examination - ICD9: V72.84, ICD10: Z01.818 (primary diagnosis) Check - NM CARDIAC PERF STRESS/PHARM - REGADENOSON 0.4 MG/5 ML INTRAVENOUS SYRINGE - INSERT IV ([place] - IV DISCONTINUE This is a Moderate risk surgery per the ACC/AHA Classification of surgical procedure risk. Per the :Luis's Simple Cardiac Risk Index or risk is less then 0.4%. patient has Moderate functional capacity. Her recent EKG shows a new LBBB. If Her stress test is normal patient will be cleared medically for surgery. 2. Arthritis of left shoulder region - ICD9: 716.91, ICD10: M19.012 - patient to undergo a reverse total left shoulder replacement. 3. Essential hypertension with goal blood pressure less than 140/90 - ICD9: 401.9, ICD10: I10 - good control - Continue current medication(s) - Recommended regular aerobic exercise. - Recommend home blood pressure monitoring, to bring results in on next visit - Goal of BP <130/80 4. LBBB (left bundle branch block) - ICD9: 426.3, ICD10: I44.7 - this is new and needs evaluated for an ischemic source. Patient not able to complete a tread millstress test. Check - NM CARDIAC PERF STRESS/PHARM - REGADENOSON 0.4 MG/5 ML INTRAVENOUS SYRINGE - INSERT IV ([place]) - IV DISCONTINUE 5. Abnormal EKG - ICD9: 794.31, ICD10: R94.31 Check - NM CARDIAC PERF STRESS/PHARM - REGADENOSON 0.4 MG/5 ML INTRAVENOUS SYRINGE - INSERT IV ([place]) - IV DISCONTINUE F/u next routine Braulio Urrutia MD documented in this encounterC[facility]03-29-2023 NoteHNO ID: [id number] Author: Suzie Jeronimo APRN.CNP Service: ? Author Type: Nurse Practitioner Type: Progress Notes Filed: 05/27/2022 1:33 PM Note Text: Summary: dos meds PATIENT MEDICATION INSTRUCTIONS Please read below carefully for your personalized instructions. Medications: If you are on blood thinner or anticoagulants including aspirin, please confirm with your surgical team on when to stop these medications. Unless instructed differently by your surgical team, stay on all of your medications until your surgery. Pre-Surgery Med Instructions Medication Instructions cyclobenzaprine (FLEXERIL) 10 mg tablet DO NOT TAKE MORNING OF SURGERY zolpidem (AMBIEN) 10 mg DO NOT TAKE MORNING OF SURGERY spironolactone (ALDACTONE) 25 mg tablet DO NOT TAKE MORNING OF SURGERY FLUoxetine (PROZAC) 40 mg capsule Take morning of surgery with a sip of water, no other fluids lisinopril (ZESTRIL, PRINIVIL) 10 mg tablet DO NOT TAKE MORNING OF SURGERY montelukast (SINGULAIR) 10 mg tablet DO NOT TAKE MORNING OF SURGERY omeprazole (PRILOSEC) 40 mg capsule DO NOT TAKE MORNING OF SURGERY meloxicam (MOBIC) 15 mg tablet Follow Surgeon's instructions estrogens conjugated (PREMARIN) 0.625 mg tablet Continue on your normal schedule hydrOXYchloroQUINE (PLAQUENIL) 200 mg tablet Follow Prescribers Instructions mirabegron (MYRBETRIQ) 50 mg Tb24 Take morning of surgery with a sip of water, no other fluids LOW-DOSE ASPIRIN ORAL Follow Prescribers Instructions GLUCOSAMINE HCL/CHONDR PACHECO A NA (OSTEO BI-FLEX ORAL) DO NOT TAKE MORNING OF SURGERY multivitamins(DAILY MULTIVITAMIN TAB) DO NOT TAKE MORNING OF SURGERY ascorbic acid(VITAMIN C 500 MG SR CAP) DO NOT TAKE MORNING OF SURGERY COLACE 100 MG CAP DO NOT TAKE MORNING OF SURGERY If you have any medication changes between receiving these instructions and your surgery date, please provide this updated information with the nurse who calls you the week day prior to your surgical procedure so we can update your list and provide you with updated instructions for the morning of your procedure.[facility]03-29-2023 NoteHNO ID: [id number] Author: Suzie Jeronimo APRN.TEETEE Service: ? Author Type: Nurse Practitioner Type: Progress Notes Filed: 06/01/2022 8:08 AM Note Text: PACC Consult SERVICE DATE: 05/27/2022 SERVICE TIME: 1:03 PM PRIMARY CARE PHYSICIAN: Braulio Urrutia MD REASON FOR VISIT: Nia Kiran is a 71 year old female who is scheduled for L TSA at the request of Dr. Mahoney for PACC consult The patient has the following: ACTIVE PROBLEM LIST OSTEOARTHRITIS LOCALIZED, PRIMARY( Lower Leg) Hallux valgus (acquired) Other complications due to other internal orthopedic device, implant, and graft Symptomatic Menopausal Or Female Climacteric States Anxiety History of Knee Replacement, Total Constipation Routine Gynecological Examination Hiatal Hernia Fatty Liver Allergic Rhinitis Overactive Bladder Oa (Osteoarthritis) Gastroesophageal Reflux Disease Without Esophagitis Insomnia Prolonged Q-T Interval On Ecg Essential Hypertension With Goal Blood Pressure Less Than 140/90 Elevated Fasting Blood Sugar Severe Obstructive Sleep Apnea Medicare Annual Wellness Visit, Subsequent Muscle Spasm Family History of Malignant Neoplasm of Gastrointestinal Tract Obesity, Class Iii, Bmi 40-49.9 (Morbid Obesity) (H[facility]) Rheumatoid Arthritis Involving Multiple Sites With Positive Rheumatoid Factor (Hcc) Other Age-Related Cataract Medication Management Other Skin Changes Hyponatremia Living Will On File At Physician's Office Advance Directive Discussed With Patient Subjective CHIEF COMPLAINT: 06/24/22 - Maru - Left Reverse TSA 71 yo SMO woman (51 BMI) non-smoker. PMHx anxiety, COPD, impaired glucose mtablolism, HTN, severe MARCELLE and compliant PAP Rx, GERD'/HH Prolonged Qtc felt to be due to Prozac use in the past (she is still on it at large dose 40 mg daily) RA (sero positive) - Plaquenil (rheumatology - need name), PAST MEDICAL HISTORY Diagnosis Date Advance directive discussed with patient 02/04/2022 Discussed 01/2022: up to date Allergic rhinitis 08/31/2013 Anxiety Common wart 01/21/2009 Constipation COPD (chronic obstructive pulmonary disease) ([facility]) well controlled-managed by PCP Elevated fasting blood sugar 2016 Essential hypertension with goal blood pressure less than 140/90 06/27/2015 well controlled-managed by PCP Family history of malignant neoplasm of gastrointestinal tract Fatty liver Gastroesophageal reflux disease without esophagitis 06/04/2015 Hallux valgus (acquired) 04/12/2008 Hemorrhage of gastrointestinal tract, unspecified Hiatal hernia sliding History of knee replacement, total both Insomnia 06/04/2015 Living will on file at physician's office 02/04/2022 DPA: Alessandra (daughter) Medicare annual wellness visit, initial 11/04/2017 Medicare Part B: 09/29/2017 last done: 11/04/2018 Medicare annual wellness visit, initial 11/04/2017 Medicare Part B: 09/29/2017 last done: 11/10/2019 Medicare annual wellness visit, subsequent 11/04/2017 Medicare Part B: 09/29/2017 last done: 02/04/2022 Muscle spasm 12/14/2017 Uses prn flexeril OA (osteoarthritis) 08/31/2013 Sees Ortho for Shoulder: Dr. Mahoney Obesity, Class III, BMI 40-49.9 (morbid obesity) ([facility]) 05/04/2018 OSTEOARTHRITIS LOCALIZED, PRIMARY( Lower Leg) 07/22/2005 Other age-related cataract 07/27/[address] Turcios Other complications due to other internal orthopedic device, implant, and graft 07/03/2008 Other skin changes 01/21/[address] Turcios for twice a year skin checks Overactive bladder 08/31/2013 Prolonged Q-T interval on ECG 06/04/2015 Per cardio felt to be prozac related. Rheumatoid arthritis involving multiple sites with positive rheumatoid factor ([facility]) 05/05/[address] Schmidt Severe obstructive sleep apnea 05/24/2017 compliant with CPAP Symptomatic menopausal or female climacteric states 08/03/2011 PAST SURGICAL HISTORY Procedure Laterality Date ANESTHESIA CLOSED PROCEDURES KNEE JOINT 2006 LEFT ANKLE LEFT ARTHROSCOPY KNEE DIAGNOSTIC W/WO SYNOVIAL BX SPX Left 2006 CARDIAC CATH 05/19/2017 normal coronaries CATARACT EXTRACTION HX Bilateral 07/2018 and 08/2018 COLONOSCOPY FLX DX W/COLLJ SPEC WHEN PFRMD 10/04/2008 COLONOSCOPY FLX DX W/COLLJ SPEC WHEN PFRMD 12/07/2013 Colonoscopy, repeat 5 yrs COLONOSCOPY FLX DX W/COLLJ SPEC WHEN PFRMD 12/05/2018 Colonoscopy CORRECTION OF BUNION 04/2008 Left foot ESOPHAGOGASTRODUODENOSCOPY TRANSORAL DIAGNOSTIC 12/05/2018 EGD PAST SURGICAL HISTORY OF 2009 ligament surgery on both thumbs REPAIR ENTEROCELE,VAG APPRCH 04/18/2019 REPAIR OF RECTOCELE 04/18/2019 ROTATOR CUFF REPAIR 10/2012 left shouldar TOTAL KNEE REPLACEMENT 01/2009 right VAGINAL HYSTERECTOMY UTERUS 250 GM/< 2005 WITH TVT FAMILY HISTORY Problem Relation Age of Onset Diabetes Mother Coronary Artery Disease Mother 80's Cancer Father Lung No Known Problems Daughter Leukemia (more content not included)...[facility]03-29-2023 NoteHNO ID: [id number] Author: Linda Wills MD Service: ? Author Type: Physician Type: Progress Notes Filed: 05/27/2022 1:33 PM Note Text: 06/24/22 - Maru - Left Reverse TSA 71 yo SMO woman (51 BMI) non-smoker. PMHx anxiety, COPD, impaired glucose mtablolism, HTN, severe MARCELLE and compliant PAP Rx, GERD'/HH Prolonged Qtc felt to be due to Prozac use in the past (she is still on it at large dose 40 mg daily) RA (sero positive) - Plaquenil (rheumatology - need name),[facility]03-29-2023 Instructions* Patient Instructions* Suzie Jeronimo APRN.MARINE EQUIPMENT PRESERVATION INSPECTOR - 05/27/2022 1:07 PM EDT PATIENT MEDICATION INSTRUCTIONS Please read below carefully for your personalized instructions. Medications: If you are on blood thinner or anticoagulants including aspirin, please confirm with your surgical team on when to stop these medications. Unless instructed differently by your surgical team, stay on all of your medications until your surgery. Pre-Surgery Med Instructions Medication Instructions cyclobenzaprine (FLEXERIL) 10 mg tablet DO NOT TAKE MORNING OF SURGERY zolpidem (AMBIEN) 10 mg DO NOT TAKE MORNING OF SURGERY spironolactone (ALDACTONE) 25 mg tablet DO NOT TAKE MORNING OF SURGERY FLUoxetine (PROZAC) 40 mg capsule Take morning of surgery with a sip of water, no other fluids lisinopril (ZESTRIL, PRINIVIL) 10 mg tablet DO NOT TAKE MORNING OF SURGERY montelukast (SINGULAIR) 10 mg tablet DO NOT TAKE MORNING OF SURGERY omeprazole (PRILOSEC) 40 mg capsule DO NOT TAKE MORNING OF SURGERY meloxicam (MOBIC) 15 mg tablet Follow Surgeon's instructions estrogens conjugated (PREMARIN) 0.625 mg tablet Continue on your normal schedule hydrOXYchloroQUINE (PLAQUENIL) 200 mg tablet Follow Prescribers Instructions mirabegron (MYRBETRIQ) 50 mg Tb24 Take morning of surgery with a sip of water, no other fluids LOW-DOSE ASPIRIN ORAL Follow Prescribers Instructions GLUCOSAMINE HCL/CHONDR PACHECO A NA (OSTEO BI-FLEX ORAL) DO NOT TAKE MORNING OF SURGERY multivitamins(DAILY MULTIVITAMIN TAB) DO NOT TAKE MORNING OF SURGERY ascorbic acid(VITAMIN C 500 MG SR CAP) DO NOT TAKE MORNING OF SURGERY COLACE 100 MG CAP DO NOT TAKE MORNING OF SURGERY If you have any medication changes between receiving these instructions and your surgery date, please provide this updated information with the nurse who calls you the week day prior to your surgicalprocedure so we can update your list and provide you with updated instructions for the morning of your procedure. documented [facility] History of Present illness Narrative* Suzie Jeronimo APRN.CNP - 05/27/2022 1:03 PM EDTSummary: dos meds PATIENT MEDICATION INSTRUCTIONS Please read below carefully for your personalized instructions. Medications: If you are on blood thinner or anticoagulants including aspirin, please confirm with your surgical team on when to stop these medications. Unless instructed differently by your surgical team, stay on all of your medications until your surgery. Pre-Surgery Med Instructions Medication Instructions cyclobenzaprine (FLEXERIL) 10 mg tablet DO NOT TAKE MORNING OF SURGERY zolpidem (AMBIEN) 10 mg DO NOT TAKE MORNING OF SURGERY spironolactone (ALDACTONE) 25 mg tablet DO NOT TAKE MORNING OF SURGERY FLUoxetine (PROZAC) 40 mg capsule Take morning of surgery with a sip of water, no other fluids lisinopril (ZESTRIL, PRINIVIL) 10 mg tablet DO NOT TAKE MORNING OF SURGERY montelukast (SINGULAIR) 10 mg tablet DO NOT TAKE MORNING OF SURGERY omeprazole (PRILOSEC) 40 mg capsule DO NOT TAKE MORNING OF SURGERY meloxicam (MOBIC) 15 mg tablet Follow Surgeon's instructions estrogens conjugated (PREMARIN) 0.625 mg tablet Continue on your normal schedule hydrOXYchloroQUINE (PLAQUENIL) 200 mg tablet Follow Prescribers Instructions mirabegron (MYRBETRIQ) 50 mg Tb24 Take morning of surgery with a sip of water, no other fluids LOW-DOSE ASPIRIN ORAL Follow Prescribers Instructions GLUCOSAMINE HCL/CHONDR PACHECO A NA (OSTEO BI-FLEX ORAL) DO NOT TAKE MORNING OF SURGERY multivitamins(DAILY MULTIVITAMIN TAB) DO NOT TAKE MORNING OF SURGERY ascorbic acid(VITAMIN C 500 MG SR CAP) DO NOT TAKE MORNING OF SURGERY COLACE 100 MG CAP DO NOT TAKE MORNING OF SURGERY If you have any medication changes between receiving these instructions and your surgery date, please provide this updated information with the nurse who calls you the week day prior to your surgicalprocedure so we can update your list and provide you with updated instructions for the morning of your procedure. * Suzie Jeronimo APRN.CNP - 05/27/2022 1:03 PM EDT PACC Consult SERVICE DATE: 05/27/2022 SERVICE TIME: 1:03 PM PRIMARY CARE PHYSICIAN: Braulio Urrutia MD REASON FOR VISIT: Nia Kiran is a 71 year old female who is scheduled for L TSA at the request of Dr. Mahoney for PACC consult The patient has the following: ACTIVE PROBLEM LIST OSTEOARTHRITIS LOCALIZED, PRIMARY( Lower Leg) Hallux valgus (acquired) Other complications due to other internal orthopedic device, implant, and graft Symptomatic Menopausal Or Female Climacteric States Anxiety History of Knee Replacement, Total Constipation Routine Gynecological Examination Hiatal Hernia Fatty Liver Allergic Rhinitis Overactive Bladder Oa (Osteoarthritis) Gastroesophageal Reflux Disease Without Esophagitis Insomnia Prolonged Q-T Interval On Ecg Essential Hypertension With Goal Blood Pressure Less Than 140/90 Elevated Fasting Blood Sugar Severe Obstructive Sleep Apnea Medicare Annual Wellness Visit, Subsequent Muscle Spasm Family History of Malignant Neoplasm of Gastrointestinal Tract Obesity, Class Iii, Bmi 40-49.9 (Morbid Obesity) ([facility]) Rheumatoid Arthritis Involving Multiple Sites With Positive Rheumatoid Factor (Hcc) Other Age-Related Cataract Medication Management Other Skin Changes Hyponatremia Living Will On File At Physician's Office Advance Directive Discussed With Patient Subjective CHIEF COMPLAINT: 06/24/22 - Maru - Left Reverse TSA 71 yo SMO woman (51 BMI) non-smoker. PMHx anxiety, COPD, impaired glucose mtablolism, HTN, severe MARCELLE and compliant PAP Rx, GERD'/HH Prolonged Qtc felt to be due to Prozac use in the past (she is still on it at large dose 40 mg daily) RA (sero positive) - Plaquenil (rheumatology - need name), PAST MEDICAL HISTORY Diagnosis Date Advance directive discussed with patient 02/04/2022 Discussed 01/2022: up to date Allergic rhinitis 08/31/2013 Anxiety Common wart 01/21/2009 Constipation COPD (chronic obstructive pulmonary disease) ([facility]) well controlled-managed by PCP Elevated fasting blood sugar 2016 Essential hypertension with goal blood pressure less than 140/90 06/27/2015 well controlled-managed by PCP Family history of malignant neoplasm of gastrointestinal tract Fatty liver Gastroesophageal reflux disease without esophagitis 06/04/2015 Hallux valgus (acquired) 04/12/2008 Hemorrhage of gastrointestinal tract, unspecified Hiatal hernia sliding History of knee replacement, total both Insomnia 06/04/2015 Living will on file at physician's office 02/04/2022 DPA: Alessandra (daughter) Medicare annual wellness visit, initial 11/04/2017 Medicare Part B: 09/29/2017 last done: 11/04/2018 Medicare annual wellness visit, initial 11/04/2017 Medicare Part B: 09/29/2017 last done: 11/10/2019 Medicare annual wellness visit, subsequent 11/04/2017 Medicare Part B: 09/29/2017 last done: 02/04/2022 Muscle spasm 12/14/2017 Uses prn flexeril OA (osteoarthritis) 08/31/2013 Sees Ortho for Shoulder: Dr. Mahoney Obesity, Class III, BMI 40-49.9 (morbid obesity) (HCC) 05/04/2018 OSTEOARTHRITIS LOCALIZED, PRIMARY( Lower Leg) 07/22/2005 Other age-related cataract 07/27/[address] Turcios Other complications due to other internal orthopedic device, implant, and graft 07/03/2008 Other skin changes 01/21/[address] Turcios for twice a year skin checks Overactive bladder 08/31/2013 Prolonged Q-T interval on ECG 06/04/2015 Per cardio felt to be prozac related. Rheumatoid arthritis involving multiple sites with positive rheumatoid factor (HCC) 05/05/[address] Schmidt Severe obstructive sleep apnea 05/24/2017 compliant with CPAP Symptomatic menopausal or female climacteric states 08/03/2011 PAST SURGICAL HISTORY Procedure Laterality Date ANESTHESIA CLOSED PROCEDURES KNEE JOINT 2006 LEFT ANKLE LEFT ARTHROSCOPY KNEE DIAGNOSTIC W/WO SYNOVIAL BX SPX Left 2006 CARDIAC CATH 05/19/2017 normal coronaries CATARACT EXTRACTION HX Bilateral 07/2018 and 08/2018 COLONOSCOPY FLX DX W/COLLJ SPEC WHEN PFRMD 10/04/2008 COLONOSCOPY FLX DX W/COLLJ SPEC WHEN PFRMD 12/07/2013 Colonoscopy, repeat 5 yrs COLONOSCOPY FLX DX W/COLLJ SPEC WHEN PFRMD 12/05/2018 Colonoscopy CORRECTION OF BUNION 04/2008 Left foot ESOPHAGOGASTRODUODENOSCOPY TRANSORAL DIAGNOSTIC 12/05/2018 EGD PAST SURGICAL HISTORY OF 2009 ligament surgery on both thumbs REPAIR ENTEROCELE,VAG APPRCH 04/18/2019 REPAIR OF RECTOCELE 04/18/2019 ROTATOR CUFF REPAIR 10/2012 left shouldar TOTAL KNEE REPLACEMENT 01/2009 right VAGINAL HYSTERECTOMY UTERUS 250 GM/< 2005 WITH TVT FAMILY HISTORY Problem Relation Age of Onset Diabetes Mother Coronary Artery Disease Mother 80's Cancer Father Lung No Known Problems Daughter Leukemia Brother No Known Problems Brother Colon Cancer Brother other (Brain Aneurism) Brother other (Other) Brother Accident age 5 No Known Problems Daughter Blood Disease Daughter Essential Thrombocytosis and Von Willinbers Disease No Known Problems Daughter SOCIAL HISTORY: Social History Tobacco Use Smoking status: Never Smokeless tobacco: Never Vaping Use Vaping Use: Never used Substance Use Topics Alcohol use: Yes Comment: Rarely Drug use: No Prior to Admission medications as of 05/26/22 1010 Medication Sig Last Dose Taking cyclobenzaprine (FLEXERIL) 10 mg tablet Take once a day as needed for pain. Yes zolpidem (AMBIEN) 10 mg Take 1 tablet by mouth at bedtime as needed for up to 180 days. For Insomnia. Yes spironolactone (ALDACTONE) 25 mg tablet Take 1 tablet by mouth once daily. Patient taking differently: Take 25 mg by mouth every morning. Yes FLUoxetine (PROZAC) 40 mg capsule Take 1 capsule by mouth once daily. Patient taking differently: Take 40 mg by mouth every morning. Yes lisinopril (ZESTRIL, PRINIVIL) 10 mg tablet Take 1 tablet by mouth once daily. Patient taking differently: Take 10 mg by mouth every morning. Yes montelukast (SINGULAIR) 10 mg tablet Take 1 tablet by mouth daily at bedtime. Yes omeprazole (PRILOSEC) 40 mg capsule Take 1 capsule by mouth once daily. Patient taking differently: Take 40 mg by mouth every evening. Yes meloxicam (MOBIC) 15 mg tablet Take 15 mg by mouth once daily. Last dose 06/16 Yes estrogens conjugated (PREMARIN) 0.625 mg tablet Take 1 tablet by mouth two times a week. Yes hydrOXYchloroQUINE (PLAQUENIL) 200 mg tablet Take 1 tablet by mouth twice daily. Per rheumatology Patient taking differently: Take 200 mg by mouth twice daily. Last dose 06/16 will check with rheumatology (Dr. Lopez) on 06/08 at appointment Yes mirabegron (MYRBETRIQ) 50 mg Tb24 Take by mouth every morning. Yes LOW-DOSE ASPIRIN ORAL Take 81 mg by mouth once daily. Last dose 06/16 Yes GLUCOSAMINE HCL/CHONDR PACHECO A NA (OSTEO BI-FLEX ORAL) Take by mouth once daily. Last dose 06/10 Yes multivitamins(DAILY MULTIVITAMIN TAB) Take by mouth. Last dose 06/10 Yes ascorbic acid(VITAMIN C 500 MG SR CAP) Take by mouth. Last dose 06/10 Yes COLACE 100 MG CAP Take by mouth every morning. Yes zolpidem (AMBIEN) 10 mg Take 1 tablet by mouth at bedtime as needed (insomnia) for up to 20 days. amoxicillin (POLYMOX, AMOXIL) 500 mg capsule Take 4 capsules by mouth as needed. Before dental procedures. No medication comments found. ALLERGIES Allergen Reactions Morphine Rash And delusions Demerol [Meperidine* Itching Dilaudid [Hydromorp* Itching Percocet [Oxycodone* Unknown Poison Michelle Swelling, Itching, Other: See Comments nausea Vicodin [Hydrocodon* Unknown REVIEW OF SYSTEMS: PAIN ASSESSMENT: Pain Pain Level: 6 Pain Location: Shoulder-Left Description: Aching, Sharp, Radiating Frequency: Continuous Intervention/Comfort measure: Medication General: No weight loss, malaise or fevers. Neuro: No history of TIA's, stroke, GUT SNATCHER tumor, impaired sensorium, hemiplegia, paraplegia or quadraplegia. No neurological symptoms or problems. Respiratory: Positive for COPD, MARCELLE Cardiovascular: Positive for: Hypertension GI: Positive for GERD : Positive for frequency on myrbetriq PYROTECHNIST: Negative for abnormal vaginal bleeding, abnormal vaginal discharge., N/A : N/A, No LMP recorded. Patient has had a hysterectomy. Endocrine: No history of diabetes. Has not taken steroids within the past 30 days. No history of endocrinological symptoms or problems. Hematology: Chronic anti-coagulation / platelet meds (Aspirin) Oncology: No history of CA metastasis, chemo within 30 days, or radiotherapy within 90 days. Has not lost 10% of body wt in 6 months. No history of oncological symptoms or problems. Psych: Anxiety Musculoskeletal: Joint pain and Rheumatoid Arthritis; Education Research Analyst Jessica and plaquenil Skin: Negative for lesions, rash and itching. Objective PHYSICAL EXAM: VITALS: BP 114/62 Pulse 93 Resp 18 Wt 295 lb 3.2 oz (133.9kg) SpO2 94% General: Alert and oriented, No acute distress, Morbidly obese Diagnostic tests reviewed for today's visit: Lab Value Units Date High Low HB 12.0 g/dL 05/27/2022 15.5 11.5 HCT 36.8 % 05/27/2022 46.0 36.0 WBC 3.39 k/uL 05/27/2022 11.00 3.70 PLT 281 k/uL 05/27/2022 400 150 NA 134 mmol/L 02/04/2022 144 136 K 5.0 mmol/L 02/04/2022 5.1 3.7 GLUC 90 mg/dL 02/04/2022 99 74 BUN 19 mg/dL 02/04/2022 21 7 CREAT 0.86 mg/dL 02/04/2022 0.96 0.58 PTSEC No results within date range. INR No results within date range. APTT No results within date range. ALT 18 U/L 01/28/2022 38 7 AST 22 U/L 01/28/2022 35 13 TBILI 0.3 mg/dL 01/28/2022 1.3 0.2 TSH No results within date range. Lab Value Units Date High Low HCGQT No results within date range. UHCG No results within date range. HCG, BODY* No results within date range. Lab Value Units Date High Low ABORHD No results within date range. ABSCREEN No results within date range. Hemoglobin A1C (%) Date Value 01/28/2022 5.6 07/15/2021 5.6 01/14/2021 5.8 06/05/2020 6.2 10/24/2019 6.3 04/25/2019 6.0 10/21/2018 5.8 PENDING Assessment/Plan Nia lives with her significant other; still active (cleans her house, drives, mows, shops, climbsstairs). States she's not limited in her activity at all, just in pain from mult rotator cuff repairs of the L shoulder. She is apple shaped. RA affects mainly her hands and neck- denies LROM but does have some stiffness. She does have TMJ and states her L jaw pops/cracks and occasionally dislocates. She has 2 false teeth in the front that have been cracked mult times by anesthesia at another facility and she asks that anesthesia is careful. [facility] 2018 following a NML SPECT 2/2 L chest/arm pain was completely NML. She follows with Jessica for RA and is seeing him June 08 for instructions on her plaquenil. Sees her PCP 05/29 for clearance. Her preliminary EKG 87bpm, NSR, inc LBBB. Will wait for confirmed reading. Ambulates without assistance; denies CP/SOB/orthopnea. Vitals stable. Compliant with cpap. Sleep study from 2018 revealed AHI REM 48.2/supine 69.2, abdiel 70s, freq PVCs, sev MARCELLE (there is not a titration study to review). PFTs 2018 FVC 2.8/FEV1 2.34/ratio 83 METS: Patient denies any chest pain or undue shortness of breath with the above physical activity. States high level fx capacity with only mild limitations 2/2 shoulder pain ANESTHESIA FINDINGS: Intubation History: No history of difficult intubation Significant Anesthesia Considerations: None and front 2 teeth are false and have been chipped s/p repair mult times Airway History: No abnormal airway history PLAN This patient is optimally prepared for surgery pending LABS. The Following Tests/Procedures Have Been Initiated: PACC labs Planned Anesthetic: Per anesthesia choice Instructions Given to Patient: Instructions located in the after visit summary. Patient given verbal and written preop instructions and voices comprehension and compliance. SIGNATURE: Suzie Jeronimo APRN.CNP PATIENT NAME: Nia Kiran DATE: May 27, 2022 TIME: 1:03 PM * Linda Wills MD - 05/27/2022 12:30 PM EDT 06/24/22 - Maru - Left Reverse TSA 71 yo SMO woman (51 BMI) non-smoker. PMHx anxiety, COPD, impaired glucose mtablolism, HTN, severe MARCELLE and compliant PAP Rx, GERD'/HH Prolonged Qtc felt to be due to Prozac use in the past (she is still on it at large dose 40 mg daily) RA (sero positive) - Plaquenil (rheumatology - need name), documented in [facility] encounterC[facility]27-[facility]23 Miscellaneous Notes* Letter - Mammography Coordinator - 03/27/2022 10:48 AM EST March 30, 2022 PID: [id number] Nia [address] [place] [address] Dear Ms. Kiran, We are pleased to inform you that the results of your recent breast imaging exam on 03/27/2022 are normal. Early detection of cancer is very important. We also understand recommendations regarding breast cancer screening are controversial. Please discuss with your primary care provider which strategy is best for you and whether a mammogram is right for you. Your imaging studies and report will be kept [facility] at [facility] as part of your permanent medical record and are available for your continuing care. Thank you for allowing us to help in meeting your health care needs. Sincerely, Dr. Chiang Interpreting Radiologist [facility] (Normal over 40) documented in this encounterC[facility] Clinic [facility]01-27-2023 History of Present illness Narrative* Fadia Marcum RT(R) - 03/27/2022 10:10 AM EST Radiology Service Progress Note PATIENT NAME: Nia Kiran DATE OF SERVICE: March 27, 2022 TIME: 10:24 AM PATIENT IDENTITY VERIFICATION COMPLETED USING TWO (2) IDENTIFIERS: Name and Date of confirmedby patient verbally. FALL SCREENING: Has the patient had 2 falls in the last year or 1 fall with injury or currently using an Ambulatory Assistive Device (Walker, Cane, Wheelchair, Crutches, etc.)? No PATIENT GENDER DATA: Female. status: : No status: NO. PATIENT RELEVANT IMPLANT DATA REVIEWED: Not Applicable RADIOLOGY DEPARTMENT: Mammography PERIPHERAL IV DATA: Not applicable SIGNED BY: RT Adriana(Jose) March 27, 2022 10:24 AM documented in this encounterC[facility]12-19-2022 Miscellaneous Notes* Telephone Encounter - Braulio Urrutia MD - 02/16/2022 12:42 PM EST These were already sent this AM. * Telephone Encounter - Sheridan Escobedo MA - 02/16/2022 8:14 AM EST Patient has been identified by name and date of : Yes Requested Prescriptions Pending Prescriptions Disp Refills cyclobenzaprine (FLEXERIL) 10 mg tablet 90 tablet 1 Sig: Take once a day as needed for pain. zolpidem (AMBIEN) 10 mg 90 tablet 1 Sig: Take 1 tablet by mouth at bedtime as needed for up to 180 days. For Insomnia. RX INSTRUCTIONS: Patient aware RX will be sent to pharmacy. No need to notify patient. Sheridan Escobedo MA Silvia: 01/2022 Nov: 07/2021 documented in this encounterC[facility]12-19-2022 Miscellaneous Notes* Telephone Encounter - Braulio Urrutia MD - 02/16/2022 12:41 PM EST These were already sent this AM. * Telephone Encounter - Sheridan Escobedo MA - 02/16/2022 7:46 AM EST Patient has been identified by name and date of : Yes Requested Prescriptions Pending Prescriptions Disp Refills spironolactone (ALDACTONE) 25 mg tablet 30 tablet 5 Sig: Take 1 tablet by mouth once daily. FLUoxetine (PROZAC) 40 mg capsule 90 capsule 1 Sig: Take 1 capsule by mouth once daily. lisinopril (ZESTRIL, PRINIVIL) 10 mg tablet 90 tablet 1 Sig: Take 1 tablet by mouth once daily. montelukast (SINGULAIR) 10 mg tablet 90 tablet 1 Sig: Take 1 tablet by mouth daily at bedtime. omeprazole (PRILOSEC) 40 mg capsule 90 capsule 1 Sig: Take 1 capsule by mouth once daily. RX INSTRUCTIONS: Patient aware RX will be sent to pharmacy. No need to notify patient. Sheridan Escobedo MA Silvia: 01/2022 Nov: 07/2022 Last refill: 07/2021 documented in this encounterC[facility]12-19-2022 Miscellaneous Notes* Telephone Encounter - Braulio Urrutia MD - 02/16/2022 8:53 AM EST The following approved medication requests have been transmitted electronically. Requested Prescriptions Signed Prescriptions Disp Refills cyclobenzaprine (FLEXERIL) 10 mg tablet 90 tablet 1 Sig: Take once a day as needed for pain. zolpidem (AMBIEN) 10 mg 90 tablet 1 Sig: Take 1 tablet by mouth at bedtime as needed for up to 180 days. For Insomnia. spironolactone (ALDACTONE) 25 mg tablet 90 tablet 1 Sig: Take 1 tablet by mouth once daily. FLUoxetine (PROZAC) 40 mg capsule 90 capsule 1 Sig: Take 1 capsule by mouth once daily. lisinopril (ZESTRIL, PRINIVIL) 10 mg tablet 90 tablet 1 Sig: Take 1 tablet by mouth once daily. montelukast (SINGULAIR) 10 mg tablet 90 tablet 1 Sig: Take 1 tablet by mouth daily at bedtime. omeprazole (PRILOSEC) 40 mg capsule 90 capsule 1 Sig: Take 1 capsule by mouth once daily. omeprazole (PRILOSEC) 40 mg capsule 20 capsule 0 Sig: Take 1 capsule by mouth once daily. montelukast (SINGULAIR) 10 mg tablet 20 tablet 0 Sig: Take 1 tablet by mouth daily at bedtime. lisinopril (ZESTRIL, PRINIVIL) 10 mg tablet 20 tablet 0 Sig: Take 1 tablet by mouth once daily. FLUoxetine (PROZAC) 40 mg capsule 20 capsule 0 Sig: Take 1 capsule by mouth once daily. spironolactone (ALDACTONE) 25 mg tablet 20 tablet 0 Sig: Take 1 tablet by mouth once daily. zolpidem (AMBIEN) 10 mg 20 tablet 0 Sig: Take 1 tablet by mouth at bedtime as needed (insomnia) for up to 20 days. cyclobenzaprine (FLEXERIL) 10 mg tablet 20 tablet 0 Sig: Take one a day as needed for pain. Braulio Urrutia MD PDMP website checked and validated. All prescriptions have been APPROPRIATELY filled. No suspiciousactivity was identified. 02/16/2022 by Braulio Urrutia MD * Telephone Encounter - Sheridan Escobedo MA - 02/16/2022 8:16 AM EST Patient has been identified by name and date of : Yes Requested Prescriptions Pending Prescriptions Disp Refills cyclobenzaprine (FLEXERIL) 10 mg tablet 20 tablet 0 Sig: Take once a day as needed for pain. zolpidem (AMBIEN) 10 mg 20 tablet 0 Sig: Take 1 tablet by mouth at bedtime as needed for up to 180 days. For Insomnia. spironolactone (ALDACTONE) 25 mg tablet 20 tablet 0 Sig: Take 1 tablet by mouth once daily. FLUoxetine (PROZAC) 40 mg capsule 20 capsule 0 Sig: Take 1 capsule by mouth once daily. lisinopril (ZESTRIL, PRINIVIL) 10 mg tablet 20 tablet 0 Sig: Take 1 tablet by mouth once daily. montelukast (SINGULAIR) 10 mg tablet 20 tablet 0 Sig: Take 1 tablet by mouth daily at bedtime. omeprazole (PRILOSEC) 40 mg capsule 20 capsule 0 Sig: Take 1 capsule by mouth once daily. RX INSTRUCTIONS: Patient aware RX will be sent to pharmacy. No need to notify patient. Sheridan Escobedo MA Patient is needing a 20 day sent to local pharmacy. While waiting on medication from [place]. [facility] Miscellaneous Notes* Telephone Encounter - Marya Camp Ma - 02/05/2022 9:44 AM EST Patient left detailed message on confidential vm Marya Camp Ma * Telephone Encounter - Braulio Urrutia MD - 02/05/2022 9:31 AM EST Let patient know repeat electrolyte panel was ok. documented in this encounterC[facility]12-07-[facility]22 Instructions* Patient Instructions* Braulio Urrutia MD - 02/04/2022 11:47 AM EST Please get labs done on or after 07/24/2022 prior to your next visit. documented in this encounterC[facility]12[facility]22 History of Present illness Narrative* Braulio Urrutia MD - 02/04/2022 11:09 AM EST Medicare Yearly Visit Medical B eligibilty date 09/29/17 Date of last exam 01/21/2021 PAST MEDICAL HISTORY PAST MEDICAL HISTORY Diagnosis Date Allergic rhinitis 08/31/2013 Anxiety Common wart 01/21/2009 Constipation Current use of proton pump inhibitor 04/21/2016 Mg checked 09/2017 Elevated fasting blood sugar 2016 Essential hypertension with goal blood pressure less than 140/90 06/27/2015 Family history of malignant neoplasm of gastrointestinal tract Fatty liver Gastroesophageal reflux disease without esophagitis 06/04/2015 Hallux valgus (acquired) 04/12/2008 Hemorrhage of gastrointestinal tract, unspecified Hiatal hernia sliding History of knee replacement, total both Insomnia 06/04/2015 Medicare annual wellness visit, initial 11/04/2017 Medicare Part B: 09/29/2017 last done: 11/04/2018 Medicare annual wellness visit, initial 11/04/2017 Medicare Part B: 09/29/2017 last done: 11/10/2019 Muscle spasm 12/14/2017 Uses prn flexeril OA (osteoarthritis) 08/31/2013 Sees Ortho for Shoulder: Dr. Mahoney Obesity, Class III, BMI 40-49.9 (morbid obesity) ([facility]) 05/04/2018 OSTEOARTHRITIS LOCALIZED, PRIMARY( Lower Leg) 07/22/2005 Other age-related cataract 07/27/[address] Turcios Other complications due to other internal orthopedic device, implant, and graft 07/03/2008 Overactive bladder 08/31/2013 Prolonged Q-T interval on ECG 06/04/2015 Per cardio felt to be prozac related. Rheumatoid arthritis involving multiple sites with positive rheumatoid factor ([facility]) 05/05/[address] Schmidt Severe obstructive sleep apnea 05/24/2017 Symptomatic menopausal or female climacteric states 08/03/2011 PAST SURGICAL HISTORY PAST SURGICAL HISTORY Procedure Laterality Date ANKLE LEFT CARDIAC CATH 05/19/2017 normal coronaries CATARACT EXTRACTION HX Bilateral 07/2018 and 08/2018 COLONOSCOP W/ OR W/O [facility] SPEC 10/04/08 COLONOSCOP W/ OR W/O BRS SPEC 12/07/2013 Colonoscopy, repeat 5 yrs COLONOSCOP W/ OR W/O BRS SPEC 12/05/2018 Colonoscopy CORRECTION OF BUNION 04/2008 Left foot EGD W/O OR W/BRUSH/WASH 12/05/2018 EGD PAST SURGICAL HISTORY OF 2009 ligament surgery on both thumbs [place] ANESTH,KNEE JOINT,CLOSED PROCEDURE 2005 LEFT REPAIR ENTEROCELE,VAG APPRCH 04/18/2019 REPAIR OF RECTOCELE 04/18/2019 ROTATOR CUFF REPAIR 10/2012 left shouldar TOTAL KNEE REPLACEMENT 01/2009 right VAGINAL HYSTERECTOMY 2004 WITH TVT ALLERGIES: Morphine, Demerol [Meperidine (Pf)], Dilaudid [Hydromorphone (Bulk)], Percocet [Oxycodone-Acetaminophen], Poison Michelle, and Vicodin [Hydrocodone-Acetaminophen] Medications reviewed: Yes FAMILY HISTORY FAMILY HISTORY Problem Relation Age of Onset Diabetes Mother Coronary Artery Disease Mother 80's Cancer Father Lung No Known Problems Daughter Leukemia Brother No Known Problems Brother Colon Cancer Brother other (Brain Aneurism) Brother other (Other) Brother Accident age 5 No Known Problems Daughter Blood Disease Daughter Essential Thrombocytosis and Von Willinbers Disease No Known Problems Daughter SOCIAL HISTORY: SOCIAL HISTORY Social History Tobacco Use Smoking status: Never Smoker Smokeless tobacco: Never Used Vaping Use Vaping Use: Never used Substance Use Topics Alcohol use: Yes Comment: Rarely Drug use: No Nia likes to exercise by walking. She watches her diet for sodium, low fat and low cholesterol most of the time. List of current specialists seen: Rheum: Dr. Lopez Ortho: [facility] Derm: Dr. Turcios Emergency Dispatch Operator: Dr. Aggarwal End of Live Planning discussed including patients advanced directive wishes: Yes I am willing to follow Nia's advanced directives. PHQ-2 / Depression screen Depression Screening 06/06/2020 07/22/2021 02/04/2022 02/04/2022 PHQ-2 Score 0 0 0 0 PHQ-9 Score - 0 - - CAROL-2 Total Score - - - - Depression screening tool completed and reviewed. Based on score and interview, patient is not at risk for depression. Screening tool discussed with patient, and I recommended no further interventionat this time. Functional Ability/Safety Screen 1. Was the patient's timed Up and Go test unsteady or longer than 30 seconds? No 2. Does the patient need help with the phone, transportation, shopping,preparing meals, housework, laundry, medications or managing money? No 3. Does your home have rugs in the hallway, lack of grab bars in the bathroom, lack of handrails onthe stairs or have poor lighting? No Hearing Evaluation: normal PHYSICAL EXAM BP 122/74 Pulse 95 Temp 37.3 C (99.1 F) (Right Tympanic) Resp 16 Ht 160 cm (5' 3) Wt 132.5 kg (292 lb 3.2 oz) SpO2 96% BMI 51.76 kg/m Alert and oriented X 3: YES Body mass index is 51.76 kg/m . Visual acuity: sees opto ASSESSMENT/PLAN: 71 year old female The following prevention plan was discussed during the office visit and provided to the patient: See below. Chief Complaint Patient presents with: Medicare Wellness Exam HPI Nia Kiran is a 71 year old female who presents here today for extensive. Patient with Hx HTN, elevated FBS, HTN, MARCELLE, RA, OA as well as those reviewed and addressed below and in ROS. Patient has been doing well. Has been having right shoulder pain due to a torn rotator cuff. Needs a reversal on the left shoulder. Sees Ortho. Past medical history, appointments, medications, allergies reviewed. Previous Medical History PAST MEDICAL HISTORY Diagnosis Date Allergic rhinitis 08/31/2013 Anxiety Common wart 01/21/2009 Constipation Current use of proton pump inhibitor 04/21/2016 Mg checked 09/2017 Elevated fasting blood sugar 2016 Essential hypertension with goal blood pressure less than 140/90 06/27/2015 Family history of malignant neoplasm of gastrointestinal tract Fatty liver Gastroesophageal reflux disease without esophagitis 06/04/2015 Hallux valgus (acquired) 04/12/2008 Hemorrhage of gastrointestinal tract, unspecified Hiatal hernia sliding History of knee replacement, total both Insomnia 06/04/2015 Medicare annual wellness visit, initial 11/04/2017 Medicare Part B: 09/29/2017 last done: 11/04/2018 Medicare annual wellness visit, initial 11/04/2017 Medicare Part B: 09/29/2017 last done: 11/10/2019 Muscle spasm 12/14/2017 Uses prn flexeril OA (osteoarthritis) 08/31/2013 Sees Ortho for Shoulder: Dr. Mahoney Obesity, Class III, BMI 40-49.9 (morbid obesity) ([facility]) 05/04/2018 OSTEOARTHRITIS LOCALIZED, PRIMARY( Lower Leg) 07/22/2005 Other age-related cataract 07/27/[address] Turcios Other complications due to other internal orthopedic device, implant, and graft 07/03/2008 Other skin changes 01/21/[address] Turcios for twice a year skin checks Overactive bladder 08/31/2013 Prolonged Q-T interval on ECG 06/04/2015 Per cardio felt to be prozac related. Rheumatoid arthritis involving multiple sites with positive rheumatoid factor (HCC) 05/05/[address] Schmidt Severe obstructive sleep apnea 05/24/2017 Symptomatic menopausal or female climacteric states 08/03/2011 Previous Surgical History PAST SURGICAL HISTORY Procedure Laterality Date ANESTHESIA CLOSED PROCEDURES KNEE JOINT 2006 LEFT ANKLE LEFT CARDIAC CATH 05/19/2017 normal coronaries CATARACT EXTRACTION HX Bilateral 07/2018 and 08/2018 COLONOSCOPY FLX DX W/COLLJ SPEC WHEN PFRMD 10/04/08 COLONOSCOPY FLX DX W/COLLJ SPEC WHEN PFRMD 12/07/2013 Colonoscopy, repeat 5 yrs COLONOSCOPY FLX DX W/COLLJ SPEC WHEN PFRMD 12/05/2018 Colonoscopy CORRECTION OF BUNION 04/2008 Left foot ESOPHAGOGASTRODUODENOSCOPY TRANSORAL DIAGNOSTIC 12/05/2018 EGD PAST SURGICAL HISTORY OF 2009 ligament surgery on both thumbs REPAIR ENTEROCELE,VAG APPRCH 04/18/2019 REPAIR OF RECTOCELE 04/18/2019 ROTATOR CUFF REPAIR 10/2012 left shouldar TOTAL KNEE REPLACEMENT 01/2009 right VAGINAL HYSTERECTOMY UTERUS 250 GM/< 2005 WITH TVT Family History FAMILY HISTORY Problem Relation Age of Onset Diabetes Mother Coronary Artery Disease Mother 80's Cancer Father Lung No Known Problems Daughter Leukemia Brother No Known Problems Brother Colon Cancer Brother other (Brain Aneurism) Brother other (Other) Brother Accident age 5 No Known Problems Daughter Blood Disease Daughter Essential Thrombocytosis and Von Willinbers Disease No Known Problems Daughter Patient Allergies ALLERGIES Allergen Reactions Morphine Rash And delusions Demerol [Meperidine* Itching Dilaudid [Hydromorp* Itching Percocet [Oxycodone* Unknown Poison Michelle Swelling, Itching, Other: See Comments nausea Vicodin [Hydrocodon* Unknown Current Medications Current Outpatient Medications on File Prior to Visit Medication Sig meloxicam (MOBIC) 15 mg tablet Take 15 mg by mouth once daily. cyclobenzaprine (FLEXERIL) 10 mg tablet Take once a day as needed for pain. zolpidem (AMBIEN) 10 mg Take 1 tablet by mouth at bedtime as needed for up to 180 days. For Insomnia. spironolactone (ALDACTONE) 25 mg tablet Take 1 tablet by mouth once daily. FLUoxetine (PROZAC) 40 mg capsule Take 1 capsule by mouth once daily. lisinopril (ZESTRIL, PRINIVIL) 10 mg tablet Take 1 tablet by mouth once daily. montelukast (SINGULAIR) 10 mg tablet Take 1 tablet by mouth daily at bedtime. omeprazole (PRILOSEC) 40 mg capsule Take 1 capsule by mouth once daily. estrogens conjugated (PREMARIN) 0.625 mg tablet Take 1 tablet by mouth two times a week. hydrOXYchloroQUINE (PLAQUENIL) 200 mg tablet Take 1 tablet by mouth twice daily. Per rheumatology amoxicillin (POLYMOX, AMOXIL) 500 mg capsule Take 4 capsules by mouth as needed. Before dental procedures. mirabegron (MYRBETRIQ) 50 mg Tb24 Take by mouth. LOW-DOSE ASPIRIN ORAL Take by mouth. GLUCOSAMINE HCL/CHONDR PACHECO A NA (OSTEO BI-FLEX ORAL) Take by mouth. multivitamins(DAILY MULTIVITAMIN TAB) Take one(1) tablet daily. ascorbic acid(VITAMIN C 500 MG SR CAP) Take one(1) tablet daily. COLACE 100 MG CAP Take one(1) tablet daily. No current facility-administered medications on file prior to visit. Social History Social History Tobacco Use Smoking status: Never Smokeless tobacco: Never Vaping Use Vaping Use: Never used Substance Use Topics Alcohol use: Yes Comment: Rarely Drug use: No Review of Symptoms REVIEW OF SYSTEMS GENERAL: No weight loss, malaise or fevers HEENT: Negative for frequent or significant headaches, No changes in hearing or vision, no nose bleeds or other nasal problems NECK: Negative for lumps, goiter, pain and significant neck swelling RESPIRATORY: Negative for cough, hemoptysis, wheezing, COPD, dyspnea or shortness of breath CARDIOVASCULAR: Negative for chest pain, increased leg swelling, hypertension, CHF or palpitations GI: No nausea, vomiting, or diarrhea, No heartburn or reflux symptoms, and no blood : No history of dysuria, blood MUSCULOSKELETAL: see HPI otherwise stable SKIN: Negative for new lesions, rash, and itching PSYCH: Negative for sleep disturbance, mood disorder and recent psychosocial stressors HEMATOLOGY/LYMPHOLOGY: Negative for prolonged bleeding, bruising easily or swollen nodes ENDOCRINE: Negative for cold or heat intolerance, polyuria, polydipsia and goiter NEURO: No history of headaches, syncope, paralysis, seizures or tremors EXAM: BP 122/74 Pulse 95 Temp 37.3 C (99.1 F) (Right Tympanic) Resp 16 Ht 160 cm (5' 3) Wt 132.5 kg (292 lb 3.2 oz) SpO2 96% BMI 51.76 kg/m Last 5 Encounter Wt Readings: Date: Wt: 02/04/2022 132.5 kg (292 lb 3.2 oz) 07/25/2021 126.6 kg (279 lb) 03/25/2021 129 kg (284 lb 6.4 oz) 01/21/2021 125.2 kg (276 lb) 06/12/2020 132.9 kg (293 lb) General Appearance: Well appearing, alert, in no acute distress, well-hydrated, well nourished. andMorbidly obese. Skin: Skin color, texture, turgor normal, no suspicious rashes or lesions. Head: Normocephalic, no masses, lesions, tenderness or abnormalities. Eyes: Anicteric sclera. Pupils are equally round and reactive to light. Extraocular movements are intact. . Ears: External ears, TM's normal, canals clear. Neck: Supple, no adenopathy; thyroid symmetric, normal size, no bruits. Lungs: Lungs clear to auscultation. No wheezing, rhonchi, rales.. Heart: RRR without murmur, gallop, or rubs. No ectopy. Abdomen: Normal abdominal exam, Abdomen soft, non-tender. Bowel sounds normal. No masses, organomegaly. Extremities: No deformities, edema, skin discoloration, Good capillary refill. Musculoskeletal: Muscular strength intact, No joint swelling, deformity, or tenderness. Peripheral Pulses: Normal. Neurologic: Gait normal. Reflexes normal and symmetric. Sensation to light touch and crainal nerves2-12 intact.. Health Maintenance List DTAP,TDAP,TD(1 - Tdap) due on 01/05/2015 ADVANCE DIRECTIVE DISCUSSION Never done DEPRESSION ASSESSMENT Never done COVID-19 VACCINE(4 - Booster for Pfizer series) due on 03/27/2021 MAMMOGRAM due on 03/25/2022 ANNUAL PCP TEAM CHRONIC DISEASE VISIT due on 07/25/2022 BP CONTROLLED (<130/80) due on 07/25/2022 COLORECTAL CANCER SCREENING due on 12/06/2023 DIABETES SCREEN due on 01/28/2025 LIPID SCREEN due on 01/28/2027 BONE DENSITY Completed INFLUENZA Completed HEPATITIS C SCREENING Completed SHINGRIX VACCINE Completed PNEUMOCOCCAL: 65+ Completed Data reviewed Component Latest Ref Rng & Units 01/14/2021 01/28/2022 WBC 3.70 - 11.00 k/uL 5.30 4.43 RBC 3.90 - 5.20 m/uL 4.09 4.02 Hemoglobin 11.5 - 15.5 g/dL 13.1 13.4 Hematocrit 36.0 - 46.0 % 40.0 40.4 MCV 80.0 - 100.0 fL 97.8 100.5 (H) MCH 26.0 - 34.0 pg 32.0 33.3 MCHC 30.5 - 36.0 g/dL 32.8 33.2 RDW-CV 11.5 - 15.0 % 13.2 11.9 Platelet Count 150 - 400 k/uL 416 (H) 330 MPV 9.0 - 12.7 fL 9.1 9.5 Neut% % 78.7 62.8 Abs Neut (ANC) 1.45 - 7.50 k/uL 4.16 2.78 Lymph% % 12.5 25.5 Abs Lymph 1.00 - 4.00 k/uL 0.66 (L) 1.13 Drew% % 7.5 7.9 Abs Drew <0.87 k/uL 0.40 0.35 Eosin% % 0.9 2.9 Abs Eosin <0.46 k/uL 0.05 0.13 Baso% % 0.4 0.9 Abs Baso <0.11 k/uL <0.03 0.04 Immature Gran % % 0.0 IMMATURE GRANS (ABS) <0.10 k/uL <0.03 NRBC /100 WBC 0.0 Absolute nRBC <0.01 k/uL <0.01 <0.01 DTYPE Auto Nucleated Reds 0 /100 WBC 0.0 Diff Type Auto Diff Protein, Total 6.3 - 8.0 g/dL 7.4 7.2 Albumin 3.9 - 4.9 g/dL 4.5 4.3 Calcium 8.5 - 10.2 mg/dL 9.5 9.2 Bilirubin, Total 0.2 - 1.3 mg/dL 0.4 0.3 Alkaline Phosphatase 34 - 123 U/L 86 75 AST 13 - 35 U/L 22 22 Glucose 74 - 99 mg/dL 109 (H) 88 BUN 7 - 21 mg/dL 11 22 (H) Creatinine 0.58 - 0.96 mg/dL 0.82 0.96 Sodium 136 - 144 mmol/L 134 (L) 133 (L) Potassium 3.7 - 5.1 mmol/L 3.9 5.2 (H) Chloride 97 - 105 mmol/L 96 (L) 96 (L) CO2 22 - 30 mmol/L 27 26 Anion Gap 9 - 18 mmol/L 11 11 ALT 7 - 38 U/L 17 18 eGFR- >60 eGFR-All Other Races . >60 eGFR >=60 mL/min/1.73m 64 Color Yellow Light Yellow Clarity Clear Clear Glucose, Urine Negative Negative Bilirubin, Urine Negative Negative Ketones, Urine Negative Negative Specific [place], Ur 1.005 - 1.030 1.013 Hemoglobin/Blood,Ur Negative Negative pH, Urine 5.0 - 8.0 5.5 Protein, Urine Negative Negative Urobilinogen Negative Negative Nitrites Negative Negative Leukest Negative Negative WBC, Urine 0-5 /HPF 0-5 /HPF RBC, Urine 0-3 /HPF 0-3 /HPF Epithelial Cells /HPF Few Total Cholesterol, Nonfasting <200 mg/dL 210 (H) 180 Triglycerides, Nonfasting <150 mg/dL 50 72 HDL Cholesterol, Nonfasting >39 mg/dL 86 69 LDL Cholesterol, Nonfasting <100 mg/dL 114 (H) 97 Non HDL Cholesterol, Nonfasting <130 mg/dL 124 111 VLDL Cholesterol, Nonfasting <30 mg/dL 10 14 Total Chol/HDL Ratio, Nonfasting <5.10 mg/dL 2.44 2.61 LDL/HDL Ratio, Nonfasting <2.54 mg/dL 1.33 1.41 Hemoglobin A1C 4.3 - 5.6 % 5.8 (H) 5.6 Estimated Average Glucose mg/dL 120 114 Magnesium 1.7 - 2.3 mg/dL 2.3 2.3 Vitamin B12 232 - 1,245 pg/mL 906 A/P ASSESSMENT/PLAN: 1. Medicare annual wellness visit, subsequent - ICD9: V70.0, ICD10: Z00.00 (primary diagnosis) - Counseled on healthy diet and regular exercise - Calcium intake with supplements or by diet of 1000 mg/day for under 50, 1200- 1500 mg/day for 50+ - Follow up for annual exam in one year 2. Essential hypertension with goal blood pressure less than 140/90 - ICD9: 401.9, ICD10: I10 - good control - Continue current medication(s) - Recommended regular aerobic exercise. - Recommend home blood pressure monitoring, to bring results in on next visit - Goal of BP <130/80 3. Elevated fasting blood sugar - ICD9: 790.21, ICD10: R73.01 - improved with life style changes. 4. Gastroesophageal reflux disease without esophagitis - ICD9: 530.81, ICD10: K21.9 - Continue treatment with Prilosec 40 mg QD 5. Rheumatoid arthritis involving multiple sites with positive rheumatoid factor (HCC) - ICD9: 714.0, ICD10: M05.79 - management per Rheum 6. Anxiety - ICD9: 300.00, ICD10: F41.9 - stable with current Tx. 7. Severe obstructive sleep apnea - ICD9: 327.23, ICD10: G47.33 - cont CPAP 8. Obesity, Class III, BMI 40-49.9 (morbid obesity) (HCC) - ICD9: 278.01, ICD10: E66.01 Weight decreasing - Behavioral intervention 9. Insomnia, unspecified type - ICD9: 780.52, ICD10: G47.00 - stable with Tx. 10. Overactive bladder - ICD9: 596.51, ICD10: N32.81 - stable 11. Osteoarthritis of multiple joints, unspecified osteoarthritis type - ICD9: 715.89, ICD10: M15.9 - management per Ortho 12. Living will on file at physician's office - ICD9: V49.89, ICD10: Z78.9 - up to date 13. Advance directive discussed with patient - ICD9: V65.49, ICD10: Z71.89 - up to date 14. Hyponatremia - ICD9: 276.1, ICD10: E87.1 Check - BASIC METABOLIC PNL 15. Hyperkalemia - ICD9: 276.7, ICD10: E87.5 Check - BASIC METABOLIC PNL F/u 6 months routine check BMP, Lipid and A1c prior I spent a total of 40 minutes on the date of the service which included preparing to see the patient, [id number] patient care, completing clinical documentation, performing a medically appropriate examination, counseling and educating the patient/family/caregiver and ordering medications, tests, or procedures. Braulio Urrutia MD documented in this encounterC[facility] History of Past illness Narrative* Problem Noted Date Diagnosed Date Resolved Date Medication management 06/12/20202023 Medicare annual wellness visit, subsequent 11/04/2017 04/01/2023 Overview: Medicare Part B: 09/29/2017 last done: 02/17/2023 Current use of proton pump inhibitor 04/21/2016 07/25/2021 Overview: Mg checked 09/2017 Elevated blood pressure read ing without diagnosis of hypertension 06/04/2015 10/11/2015 Routine gynecological examination 04/01/2023 Overview: Dr. Schmidt documented as of this encounter (statuses as of 04/02/2023) [facility] History of Past illness Narrative* Problem Noted Date Diagnosed Date Resolved Date Medication management 06/12/20202023 Medicare annual wellness visit, subsequent 11/04/2017 04/01/2023 Overview: Medicare Part B: 09/29/2017 last done: 02/17/2023 Current use of proton pump inhibitor 04/21/2016 07/25/2021 Overview: Mg checked 09/2017 Elevated blood pressure read ing without diagnosis of hypertension 06/04/2015 10/11/2015 Routine gynecological examination 04/01/2023 Overview: Dr. Schmidt documented as of this encounter (statuses as of 04/03/2023) [facility] of Past illness Narrative* Problem Noted Date Diagnosed Date Resolved Date Medication management 06/12/20202023 Medicare annual wellness visit, subsequent 11/04/2017 04/01/2023 Overview: Medicare Part B: 09/29/2017 last done: 02/17/2023 Current use of proton pump inhibitor 04/21/2016 07/25/2021 Overview: Mg checked 09/2017 Elevated blood pressure read ing without diagnosis of hypertension 06/04/2015 10/11/2015 Routine gynecological examination 04/01/2023 Overview: Dr. Schmidt documented as of this encounter (statuses as of 05/06/2023) [facility] History of Present illness Narrative* Sundeep Mcginnis Tech (Rt) - 04/24/2020 4:50 PM EST Radiology Service Progress Note PATIENT NAME: Nia Kiran DATE OF SERVICE: April 24, 2020 TIME: 5:02 PM PATIENT IDENTITY VERIFICATION COMPLETED USING TWO (2) IDENTIFIERS: Name and Date of confirmedby patient verbally. FALL SCREENING: Has the patient had 2 falls in the last year or 1 fall with injury or currently using an Ambulatory Assistive Device (Walker, Cane, Wheelchair, Crutches, etc.)? No PATIENT GENDER DATA: Female. status: : No status: NO. PATIENT RELEVANT IMPLANT DATA REVIEWED: Not Applicable RADIOLOGY DEPARTMENT: General X-ray: Exam(s) Completed: Lower Extremity X- Ray(s): Knee, AP / Lat / Merchant Bilateral and Feet, Bilateral: Upper Extremity X-Ray(s): Hand, bilateral : Ap and Lat feet only PERIPHERAL IV DATA: Not applicable SIGNED BY: RT Roland April 24, 2020 5:02 PM documented in this encounterC[facility] History of Past illness Narrative* Problem Noted Date Resolved Date Current use of proton pump inhibitor 04/21/2016 07/25/2021 Overview: Mg checked 09/2017 Elevated blood pressure read ing without diagnosis of hypertension 06/04/2015 10/11/2015 documented as of this encounter (statuses as of 02/05/2022) [facility] of Past illness Narrative* Problem Noted Date Resolved Date Current use of proton pump inhibitor 04/21/2016 07/25/2021 Overview: Mg checked 09/2017 Elevated blood pressure read ing without diagnosis of hypertension 06/04/2015 10/11/2015 documented as of this encounter (statuses as of 02/05/2022) [address]21-2017 History of Past illness Narrative* Problem Noted Date Resolved Date Current use of proton pump inhibitor 04/21/2016 07/25/2021 Overview: Mg checked 09/2017 Elevated blood pressure read ing without diagnosis of hypertension 06/04/2015 10/11/2015 documented as of this encounter (statuses as of 02/05/2022) [address]21-2017 History of Past illness Narrative* Problem Noted Date Resolved Date Current use of proton pump inhibitor 04/21/2016 07/25/2021 Overview: Mg checked 09/2017 Elevated blood pressure read ing without diagnosis of hypertension 06/04/2015 10/11/2015 documented as of this encounter (statuses as of 02/16/2022) [place] [id number] History of Past illness Narrative* Problem Noted Date Resolved Date Current use of proton pump inhibitor 04/21/2016 07/25/2021 Overview: Mg checked 09/2017 Elevated blood pressure read ing without diagnosis of hypertension 06/04/2015 10/11/2015 documented as of this encounter (statuses as of 02/16/2022) [address]21-2017 History of Past illness Narrative* Problem Noted Date Resolved Date Current use of proton pump inhibitor 04/21/2016 07/25/2021 Overview: Mg checked 09/2017 Elevated blood pressure read ing without diagnosis of hypertension 06/04/2015 10/11/2015 documented as of this encounter (statuses as of 03/27/2022) [address]21-2017 History of Past illness Narrative* Problem Noted Date Resolved Date Current use of proton pump inhibitor 04/21/2016 07/25/2021 Overview: Mg checked 09/2017 Elevated blood pressure read ing without diagnosis of hypertension 06/04/2015 10/11/2015 documented as of this encounter (statuses as of 03/31/2022) [address]21[address]2017 History of Past illness Narrative* Problem Noted Date Resolved Date Current use of proton pump inhibitor 04/21/2016 07/25/2021 Overview: Mg checked 09/2017 Elevated blood pressure read ing without diagnosis of hypertension 06/04/2015 10/11/2015 documented as of this encounter (statuses as of 05/27/2022) [address]21-2017 History of Past illness Narrative* Problem Noted Date Resolved Date Current use of proton pump inhibitor 04/21/2016 07/25/2021 Overview: Mg checked 09/2017 Elevated blood pressure read ing without diagnosis of hypertension 06/04/2015 10/11/2015 documented as of this encounter (statuses as of 06/01/2022) [address]21-2017 History of Past illness Narrative* Problem Noted Date Resolved Date Current use of proton pump inhibitor 04/21/2016 07/25/2021 Overview: Mg checked 09/2017 Elevated blood pressure read ing without diagnosis of hypertension 06/04/2015 10/11/2015 documented as of this encounter (statuses as of 06/05/2022) [address]21-2017 History of Past illness Narrative* Problem Noted Date Resolved Date Current use of proton pump inhibitor 04/21/2016 07/25/2021 Overview: Mg checked 09/2017 Elevated blood pressure read ing without diagnosis of hypertension 06/04/2015 10/11/2015 documented as of this encounter (statuses as of 06/11/2022) [address]21-2017 History of Past illness Narrative* Problem Noted Date Resolved Date Current use of proton pump inhibitor 04/21/2016 07/25/2021 Overview: Mg checked 09/2017 Elevated blood pressure read ing without diagnosis of hypertension 06/04/2015 10/11/2015 documented as of this encounter (statuses as of 06/11/2022) [address]21-2017 History of Past illness Narrative* Problem Noted Date Resolved Date Current use of proton pump inhibitor 04/21/2016 07/25/2021 Overview: Mg checked 09/2017 Elevated blood pressure read ing without diagnosis of hypertension 06/04/2015 10/11/2015 documented as of this encounter (statuses as of 06/18/2022) [facility]02-21-2017 History of Past illness Narrative* Problem Noted Date Resolved Date Current use of proton pump inhibitor 04/21/2016 07/25/2021 Overview: Mg checked 09/2017 Elevated blood pressure read ing without diagnosis of hypertension 06/04/2015 10/11/2015 documented as of this encounter (statuses as of 06/22/2022) [address]21-2017 History of Past illness Narrative* Problem Noted Date Resolved Date Current use of proton pump inhibitor 04/21/2016 07/25/2021 Overview: Mg checked 09/2017 Elevated blood pressure read ing without diagnosis of hypertension 06/04/2015 10/11/2015 documented as of this encounter (statuses as of 08/05/2022) [address]21-2017 History of Past illness Narrative* Problem Noted Date Resolved Date Current use of proton pump inhibitor 04/21/2016 07/25/2021 Overview: Mg checked 09/2017 Elevated blood pressure read ing without diagnosis of hypertension 06/04/2015 10/11/2015 documented as of this encounter (statuses as of 08/18/2022) [address]21-2017 History of Past illness Narrative* Problem Noted Date Diagnosed Date Resolved Date Current use of proton pump inhibitor 04/21/2016 07/25/2021 Overview: Mg checked 09/2017 Elevated blood pressure read ing without diagnosis of hypertension 06/04/2015 10/11/2015 documented as of this encounter (statuses as of 10/22/2022) [address]21-2017 History of Past illness Narrative* Problem Noted Date Diagnosed Date Resolved Date Current use of proton pump inhibitor 04/21/2016 07/25/2021 Overview: Mg checked 09/2017 Elevated blood pressure read ing without diagnosis of hypertension 06/04/2015 10/11/2015 documented as of this encounter (statuses as of 10/26/2022) [address]21-2017 History of Past illness Narrative* Problem Noted Date Diagnosed Date Resolved Date Current use of proton pump inhibitor 04/21/2016 07/25/2021 Overview: Mg checked 09/2017 Elevated blood pressure read ing without diagnosis of hypertension 06/04/2015 10/11/2015 documented as of this encounter (statuses as of 10/30/2022) [address]21-2017 History of Past illness Narrative* Problem Noted Date Diagnosed Date Resolved Date Current use of proton pump inhibitor 04/21/2016 07/25/2021 Overview: Mg checked 09/2017 Elevated blood pressure read ing without diagnosis of hypertension 06/04/2015 10/11/2015 documented as of this encounter (statuses as of 11/03/2022) [address]21-2017 History of Past illness Narrative* Problem Noted Date Diagnosed Date Resolved Date Current use of proton pump inhibitor 04/21/2016 07/25/2021 Overview: Mg checked 09/2017 Elevated blood pressure read ing without diagnosis of hypertension 06/04/2015 10/11/2015 documented as of this encounter (statuses as of 12/15/2022) [address]21-2017 History of Past illness Narrative* Problem Noted Date Diagnosed Date Resolved Date Current use of proton pump inhibitor 04/21/2016 07/25/2021 Overview: Mg checked 09/2017 Elevated blood pressure read ing without diagnosis of hypertension 06/04/2015 10/11/2015 documented as of this encounter (statuses as of 12/16/2022) [address]21-2017 History of Past illness Narrative* Problem Noted Date Diagnosed Date Resolved Date Current use of proton pump inhibitor 04/21/2016 07/25/2021 Overview: Mg checked 09/2017 Elevated blood pressure read ing without diagnosis of hypertension 06/04/2015 10/11/2015 documented as of this encounter (statuses as of 12/22/2022) [address]21-2017 History of Past illness Narrative* Problem Noted Date Diagnosed Date Resolved Date Current use of proton pump inhibitor 04/21/2016 07/25/2021 Overview: Mg checked 09/2017 Elevated blood pressure read ing without diagnosis of hypertension 06/04/2015 10/11/2015 documented as of this encounter (statuses as of 12/28/2022) [facility]02-21-2017 History of Past illness Narrative* Problem Noted Date Diagnosed Date Resolved Date Current use of proton pump inhibitor 04/21/2016 07/25/2021 Overview: Mg checked 09/2017 Elevated blood pressure read ing without diagnosis of hypertension 06/04/2015 10/11/2015 documented as of this encounter (statuses as of 01/03/2023) [facility]02-21-2017 History of Past illness Narrative* Problem Noted Date Diagnosed Date Resolved Date Current use of proton pump inhibitor 04/21/2016 07/25/2021 Overview: Mg checked 09/2017 Elevated blood pressure read ing without diagnosis of hypertension 06/04/2015 10/11/2015 documented as of this encounter (statuses as of 01/03/2023) [facility]21-2017 History of Past illness Narrative* Problem Noted Date Diagnosed Date Resolved Date Current use of proton pump inhibitor 04/21/2016 07/25/2021 Overview: Mg checked 09/2017 Elevated blood pressure read ing without diagnosis of hypertension 06/04/2015 10/11/2015 documented as of this encounter (statuses as of 01/05/2023) [facility] No data available for this section [facility] Evaluation noteNo assessment information available [facility] Work Phone: Evaluation note* Diagnosis Medicare annual wellness visit, subsequent- Primary Routine general medical examination at a health care facility Essential hypertension with goal blood pressure less than 140/90 Elevated fasting blood sugar Impaired fasting glucose Gastroesophageal reflux disease without esophagitis Esophageal reflux Rheumatoid arthritis involving multiple sites with positive rheumatoid factor (HCC) Anxiety Anxiety state, unspecified Severe obstructive sleep apnea Obstructive sleep apnea (adult) (pediatric) Obesity, Class III, BMI 40-49.9 (morbid obesity) (HCC) Morbid obesity Insomnia, unspecified type Overactive bladder Hypertonicity of bladder Osteoarthritis of multiple joints, unspecified osteoarthritis type Living will on file at physician's office Advance directive discussed with patient Other specified counseling Hyponatremia Hyposmolality and/or hyponatremia Hyperkalemia Hyperpotassemia [facility] Diagnosis Insomnia, unspecified type Anxiety Anxiety state, unspecified [facility]* Diagnosis Anxiety Anxiety state, unspecified [facility]* Diagnosis Insomnia, unspecified type [facility]* Diagnosis Preop cardiovascular exam- Primary Pre-operative cardiovascular examination Postprocedural hypoinsulinemia Postsurgical hypoinsulinemia Pre-op testing Preoperative examination, unspecified Other general symptoms and signs Pain in other specified joint Primary osteoarthritis of left shoulder Primary localized osteoarthrosis, shoulder region Left shoulder pain, unspecified chronicity [facility] Diagnosis Pre-op examination- Primary Preoperative examination, unspecified Arthritis of left shoulder region Unspecified arthropathy, shoulder region Essential hypertension with goal blood pressure less than 140/90 LBBB (left bundle branch block) Other left bundle branch block Abnormal EKG Nonspecific abnormal electrocardiogram (ECG) (EKG) Primary osteoarthritis of left shoulder Primary localized osteoarthrosis, shoulder region Left shoulder pain, unspecified chronicity [facility] Diagnosis Right sided sciatica- Primary Sciatica Primary osteoarthritis of left shoulder Primary localized osteoarthrosis, shoulder region Left shoulder pain, unspecified chronicity [facility] Diagnosis Abnormal EKG- Primary Nonspecific abnormal electrocardiogram (ECG) (EKG) Pre-op examination Preoperative examination, unspecified Primary osteoarthritis of left shoulder Primary localized osteoarthrosis, shoulder region Left shoulder pain, unspecified chronicity [facility]* Diagnosis Insomnia, unspecified type Anxiety Anxiety state, unspecified [facility]* Diagnosis Essential hypertension with goal blood pressure less than 140/90- Primary Elevated fasting blood sugar Impaired fasting glucose Rheumatoid arthritis involving multiple sites with positive rheumatoid factor ([facility]) Severe obstructive sleep apnea Obstructive sleep apnea (adult) (pediatric) Obesity, Class III, BMI 40-49.9 (morbid obesity) (HCC) Morbid obesity Osteoarthritis of multiple joints, unspecified osteoarthritis type Anxiety Anxiety state, unspecified Medication management Encounter for long-term (current) use of other medications [facility] Diagnosis Severe obstructive sleep apnea- Primary Obstructive sleep apnea (adult) (pediatric) documented in this encounter [facility] note* Diagnosis Right leg pain- Primary Pain in limb Chronic pain of right knee Numbness and tingling Disturbance of skin sensation [facility]* Diagnosis Radiculopathy, lumbosacral region- Primary Thoracic or lumbosacral neuritis or radiculitis, unspecified Right leg pain Pain in limb Chronic pain of right knee Numbness and tingling Disturbance of skin sensation Other dorsalgia Paresthesia of skin Disturbance of skin sensation documented in this encounter [facility] note* Diagnosis Spinal stenosis of lumbar region with neurogenic claudication- Primary Spinal stenosis, lumbar region, with neurogenic claudication [facility] Diagnosis Spinal stenosis of lumbar region with neurogenic claudication- Primary Spinal stenosis, lumbar region, with neurogenic claudication [facility] Diagnosis Spinal stenosis of lumbar region with neurogenic claudication- Primary Spinal stenosis, lumbar region, with neurogenic claudication Lumbar radiculopathy Thoracic or lumbosacral neuritis or radiculitis, unspecified Morbid obesity (HCC) Morbid obesity [facility]* Diagnosis Anxiety Anxiety state, unspecified documented in this encounter [facility] note* Diagnosis Spinal stenosis of lumbar region with neurogenic claudication- Primary Spinal stenosis, lumbar region, with neurogenic claudication Lumbar radiculopathy Thoracic or lumbosacral neuritis or radiculitis, unspecified Morbid obesity (HCC) Morbid obesity [facility] Diagnosis Spinal stenosis of lumbar region with neurogenic claudication Spinal stenosis, lumbar region, with neurogenic claudication [facility] Diagnosis Encounter for screening mammogram for breast cancer [facility] Diagnosis Spinal stenosis of lumbar region with neurogenic claudication- Primary Spinal stenosis, lumbar region, with neurogenic claudication Morbid obesity (HCC) Morbid obesity Lumbar radiculopathy Thoracic or lumbosacral neuritis or radiculitis, unspecified [facility]* Diagnosis Encounter for gynecological examination (general) (routine) without abnormal findings- Primary Encounter for screening mammogram for breast cancer [facility] Diagnosis Essential hypertension with goal blood pressure less than 140/90- Primary Elevated fasting blood sugar Impaired fasting glucose Gastroesophageal reflux disease without esophagitis Esophageal reflux Anxiety Anxiety state, unspecified Severe obstructive sleep apnea Obstructive sleep apnea (adult) (pediatric) Insomnia, unspecified type Morbid obesity (HCC) Morbid obesity Numbness and tingling in both hands Medication management Encounter for long-term (current) use of other medications [facility] Diagnosis Insomnia, unspecified type [facility]* Diagnosis Screening for colon cancer- Primary Special screening for malignant neoplasms, colon Family history of malignant neoplasm of gastrointestinal tract [facility] Diagnosis Family history of malignant neoplasm of gastrointestinal tract- Primary Encounter for screening for malignant neoplasm of colon Special screening for malignant neoplasms, colon Screening for colon cancer Special screening for malignant neoplasms, colon [facility]* Diagnosis Right leg pain Pain in limb Chronic pain of right knee Numbness and tingling Disturbance of skin sensation [facility]* Diagnosis Essential hypertension with goal blood pressure less than 140/90- Primary [facility]* Diagnosis Hyponatremia- Primary Hyposmolality and/or hyponatremia Hyperkalemia Hyperpotassemia [facility] Diagnosis Pre-op evaluation- Primary Preoperative examination, unspecified Overactive bladder 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) MARCELLE (obstructive sleep apnea) Obstructive sleep apnea (adult) (pediatric) Essential hypertension with goal blood pressure less than 140/90 * Assessment & Plan Note - Duy Pedroza PA-C - 02/04/2024 1:39 PM EST Associated Problem(s): GERD (gastroesophageal reflux disease) Assessment: symptoms controlled per patient with omeprazole * Assessment & Plan Note - Duy Pedroza PA-C - 02/04/2024 1:38 PM EST Associated Problem(s): Obesity Assessment: BMI 50.13 * Assessment & Plan Note - Duy Pedroza PA-C - 02/04/2024 1:38 PM EST Associated Problem(s): Essential hypertension with goal blood pressure less than 140/90 Assessment: managed with medication Last 4 Encounter BP Readings: Date: BP: 11/15/2023 112/72 08/24/2023 122/78 04/01/2023 118/80 02/17/2023 112/76 * Assessment & Plan Note - Duy Pedroza PA-C - 02/04/2024 1:38 PM EST Associated Problem(s): MARCELLE (obstructive sleep apnea) Assessment: compliant with CPAP * Assessment & Plan Note - Duy Pedroza PA-C - 02/04/2024 1:37 PM EST Associated Problem(s): Rheumatoid arthritis involving multiple sites with positive rheumatoid factor (HCC) Assessment: followed by Dr. 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) MARCELLE (obstructive sleep apnea) Obstructive sleep apnea (adult) (pediatric) Essential hypertension with goal blood pressure less than 140/90 Medicare annual wellness visit, subsequent- Primary Routine general medical examination at a health care facility Essential hypertension with goal blood pressure less than 140/90 Anxiety Anxiety state, unspecified Elevated fasting blood sugar Impaired fasting glucose Gastroesophageal reflux disease without esophagitis Esophageal reflux Rheumatoid arthritis involving multiple sites with positive rheumatoid factor (HCC) MARCELLE (obstructive sleep apnea) Obstructive sleep apnea (adult) (pediatric) Overactive bladder Hypertonicity of bladder Insomnia, unspecified type Fatty liver Other chronic nonalcoholic liver disease Chronic pain syndrome Advance directive discussed with patient Other specified counseling Screening for depression [facility] Diagnosis Pre-op evaluation- Primary Preoperative examination, unspecified Overactive bladder 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) MARCELLE (obstructive sleep apnea) Obstructive sleep apnea (adult) (pediatric) Essential hypertension with goal blood pressure less than 140/90 Screening for colon cancer- Primary Special screening for malignant neoplasms, colon Family history of malignant neoplasm of gastrointestinal tract Encounter for screening for malignant neoplasm of colon Special screening for malignant neoplasms, colon documented in this encounter [facility] note* Diagnosis Pre-op evaluation- Primary Preoperative examination, unspecified Overactive bladder 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) MARCELLE (obstructive sleep apnea) Obstructive sleep apnea (adult) (pediatric) Essential hypertension with goal blood pressure less than 140/90 Encounter for screening mammogram for breast cancer [facility] Diagnosis Pre-op evaluation- Primary Preoperative examination, unspecified Overactive bladder 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) MARCELLE (obstructive sleep apnea) Obstructive sleep apnea (adult) (pediatric) Essential hypertension with goal blood pressure less than 140/90 Laceration of left index finger, foreign body presence unspecified, nail damage status unspecified, initial encounter- Primary documented in this encounter [facility] note* Diagnosis Pre-op evaluation- Primary Preoperative examination, unspecified Overactive bladder 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) MARCELLE (obstructive sleep apnea) Obstructive sleep apnea (adult) (pediatric) Essential hypertension with goal blood pressure less than 140/90 Laceration of left index finger without foreign body without damage to nail, initial encounter- Primary documented in this encounter [facility] note* Diagnosis Pre-op evaluation- Primary Preoperative examination, unspecified Overactive bladder 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) MARCELLE (obstructive sleep apnea) Obstructive sleep apnea (adult) (pediatric) Essential hypertension with goal blood pressure less than 140/90 Hyponatremia- Primary Hyposmolality and/or hyponatremia Hyperkalemia Hyperpotassemia documented in this encounter [facility] note* Diagnosis Pre-op evaluation- Primary Preoperative examination, unspecified Overactive bladder 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) MARCELLE (obstructive sleep apnea) Obstructive sleep apnea (adult) (pediatric) Essential hypertension with goal blood pressure less than 140/90 Essential hypertension with goal blood pressure less than 140/90- Primary Insomnia, unspecified type Gastroesophageal reflux disease without esophagitis Esophageal reflux Allergic rhinitis, unspecified seasonality, unspecified trigger Anxiety Anxiety state, unspecified Symptomatic menopausal or female climacteric states Rheumatoid arthritis involving multiple sites with positive rheumatoid factor (HCC) Fatty liver Other chronic nonalcoholic liver disease Medication management Encounter for long-term (current) use of other medications Screening for diabetes mellitus Encounter for lipid screening for cardiovascular disease Screening for lipoid disorders documented in this encounter [facility] note* Diagnosis Pre-op evaluation- Primary Preoperative examination, unspecified Overactive bladder 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) MARCELLE (obstructive sleep apnea) Obstructive sleep apnea (adult) (pediatric) Essential hypertension with goal blood pressure less than 140/90 MARCELLE (obstructive sleep apnea)- Primary Obstructive sleep apnea (adult) (pediatric) documented in this encounter [facility] note* Diagnosis Pre-op evaluation- Primary Preoperative examination, unspecified Overactive bladder 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) MARCELLE (obstructive sleep apnea) Obstructive sleep apnea (adult) (pediatric) Essential hypertension with goal blood pressure less than 140/90 MARCELLE (obstructive sleep apnea)- Primary Obstructive sleep apnea (adult) (pediatric) documented in this encounter [facility] for referral (narrative)* Outpatient Procedure (Routine) - Outside PCP Specialty Diagnoses / Procedures Referred By Dimitry t Ref[facility] Diagnoses Preop cardiovascular exam Pre-op testing Procedures ECG COMPLETE ECG ROUTINE ECG W/LEAST 12 LDS W/I&R Yamilka Mahoney DO [address] [place] [address] [facility] [address] [place] [address] Referral ID Status Reason Start Date Expiration Date Visits Requested Visits Authorized [id number] Outside PCP Auto-Generat ed Referral 05/26/2022 05/26/2023 1 1 [facility] for referral (narrative)* Diagnostic Procedure Only (Urgent) - Authorized Specialty Diagnoses / Procedures Referred By Contac t Referred To Contact [facility] Diagnoses Pre-op examination LBBB (left bundle branch block) Abnormal EKG Procedures NM CARDIAC PERF STRESS/PHARM MYOCARDIAL SPECT MULTIPLE STUDIES Braulio Urrutia MD [address] [place] [address] [facility] [address] [id number] Referral ID Status Reason Start Date Expiration Date Visits Requested Visits Authorized [id number] Authorized Auto-Generat ed Referral 05/29/2022 06/28/2023 1 1 [facility] for referral (narrative)* Outpatient Procedure (Routine) - Authorized Specialty Diagnoses / Procedures Referred By Contac t Referred To Contact [facility] Diagnoses Right leg pain Chronic pain of right knee Numbness and tingling Procedures EMG(NEURO/NI) NERVE CONDUCTION STUDIES 9-10 STUDIES Margaret Lomeli PA-C [address] [place] [address] Neurological [place] [address] [place] [address] Referral ID Status Reason Start Date Expiration Date Visits Requested Visits Authorized [id number] Authorized Auto-Generat ed Referral 10/22/2022 10/23/2023 1 1 * Diagnostic Procedure Only (Routine) - Closed Specialty Diagnoses / Procedures Referred By Contac t Referred To Contact XR IMAGING Diagnoses Right leg pain Chronic pain of right knee Numbness and tingling Procedures XR KNEE GENERAL 4V AP BOTH/PA BOTH/LAT/MERC RIGHT RADIOLOGIC EXAM KNEE COMPLETE 4/MORE VIEWS Margaret Lomeli PA-C [address] [place] [address] [place] [address] Referral ID Status Reason Start Date Expiration Date V isits Requested Visits Authorized [id number] Closed Auto-Generate d Referral 10/22/2022 11/21/2023 1 1 [facility] for referral (narrative)* Diagnostic Procedure Only (Routine) - Closed Specialty Diagnoses / Procedures Referred By Contac t Referred To Contact BR IMAGING Diagnoses Encounter for screening mammogram for breast cancer Procedures ELISE SCREENING SCREENING MAMMOGRAPHY BI 2-VIEW BREAST INC [facility] Sandra Espinoza APRN.MARINE EQUIPMENT PRESERVATION INSPECTOR [address] [place] [address] Br Imaging [address] [place] [address] Referral ID Status Reason Start Date Expiration Date V isits Requested Visits Authorized [id number] Closed Auto-Generate d Referral 03/25/2021 04/24/2022 1 1 [facility] for referral (narrative)* Diagnostic Procedure Only (Routine) - Authorized Specialty Diagnoses / Procedures Referred By Remediosac t Referred To Contact BR IMAGING Diagnoses Encounter for screening mammogram for breast cancer Procedures ELISE SCREENING SCREENING MAMMOGRAPHY BI 2-VIEW BREAST INC [facility] Sandra Espinoza APRN.MARINE EQUIPMENT PRESERVATION INSPECTOR [address] [facility] [place] [address] Br Imaging [address] [place] [address] Referral ID Status Reason Start Date Expiration Date Visits Requested Visits Authorized [id number] Authorized Auto-Generat ed Referral 04/01/2023 04/30/2024 1 1 [facility] for referral (narrative)* Outpatient Procedure (Routine) - Authorized Specialty Diagnoses / Procedures Referred By Contac t Referred To Contact [facility] Diagnoses Family history of malignant neoplasm of gastrointestinal tract Encounter for screening for malignant neoplasm of colon Procedures COLONOSCOPY SCREENING COLONOSCOPY FLX DX W/COLLJ SPEC WHEN Wnedy Isabel APRN.MARINE EQUIPMENT PRESERVATION INSPECTOR [address] [place] [address] [facility] Disease [address] [address] Referral ID Status Reason Start Date Expiration Date Visits Requested Visits Authorized [id number] Authorized Auto-Generat ed Referral 11/15/2023 11/14/2024 1 1 [facility] for referral (narrative)* Diagnostic Procedure Only (Routine) - Closed Specialty Diagnoses / Procedures Referred By Dimitry starks Referred To Contact XR IMAGING Diagnoses Right leg pain Chronic pain of right knee Numbness and tingling Procedures XR KNEE GENERAL 4V AP BOTH/PA BOTH/LAT/MERC RIGHT RADIOLOGIC EXAM KNEE COMPLETE 4/MORE VIEWS Margaret Lomeli PA-C [address] [place] [id number] Xr Imaging [facility] Referral ID Status Reason Start Date Expiration Date V isits Requested Visits Authorized [id number] Closed Auto-Generate d Referral 10/22/2022 11/21/2023 1 1 [facility] for referral (narrative)* Outpatient Procedure (Routine) - Closed Specialty Diagnoses / Procedures [facility] To Contact [facility] Diagnoses Family history of malignant neoplasm of gastrointestinal tract Encounter for screening for malignant neoplasm of colon Procedures COLONOSCOPY SCREENING COLONOSCOPY FLX DX W/COLLJ SPEC WHEN Wendy Isabel APRN.MARINE EQUIPMENT PRESERVATION INSPECTOR [address] [place] [address] [facility] Disease [place] [address] [place] [id number] Referral ID Status Reason Start Date Expiration Date V isits Requested Visits Authorized [id number] Closed Auto-Generate d Referral 11/15/2023 11/14/2024 1 1 [facility] for referral (narrative)No reason for referral information availableWThe [facility] Work Phone: Reason for visit Narrative* Outpatient Procedure (Routine) - Outside PCP Specialty Diagnoses / Procedures [facility] Diagnoses Preop cardiovascular exam Pre-op testing Procedures ECG COMPLETE ECG ROUTINE ECG W/LEAST 12 LDS W/I&R Yamilka Mahoney, DO [address] [place] [address] [facility] [place] [address] [place] [address] Referral ID Status Reason Start Date Expiration Date Visits Requested Visits Authorized [id number] Outside PCP Auto-Generat ed Referral 05/26/2022 05/26/2023 1 1 [facility] for visit Narrative* Diagnostic Procedure Only (Urgent) - Closed Specialty Diagnoses / Procedures [facility] Referred To Contact MOLECULAR & FUNCTIONAL IMAGING Diagnoses Pre-op examination LBBB (left bundle branch block) Abnormal EKG Procedures NM CARDIAC PERF STRESS/PHARM MYOCARDIAL SPECT MULTIPLE STUDIES Braulio Urrutia MD [address] [place] [address] Molecular & Functional Imaging [address] [place] [address] Referral ID Status Reason Start Date Expiration Date V isits Requested Visits Authorized [id number] Closed Auto-Generate d Referral 05/29/2022 06/28/2023 1 1 [facility] for visit Narrative* Diagnostic Procedure Only (Routine) - Closed Specialty Diagnoses / Procedures [facility] Referred To Contact BR IM[facility] Diagnoses Encounter for screening mammogram for breast cancer Procedures ELISE SCREENING SCREENING MAMMOGRAPHY BI 2-VIEW BREAST INC Sandra Paredes APRN.TEETEE [address] [place] [address] Br Imaging [address] [place] [address] Referral ID Status Reason Start Date Expiration Date V isits Requested Visits Authorized [id number] Closed Auto-Generate d Referral 03/25/2021 04/24/2022 1 1 [facility] for visit Narrative* Diagnostic Procedure Only (Routine) - Closed Specialty Diagnoses / Procedures Referred By Dimitry starks Referred To Contact XR IMAGING Diagnoses Right leg pain Chronic pain of right knee Numbness and tingling Procedures XR KNEE GENERAL 4V AP BOTH/PA BOTH/LAT/MERC RIGHT RADIOLOGIC EXAM KNEE COMPLETE 4/MORE VIEWS Margaret Lomeli PA-C [address] [place] [address] [place] [address] Referral ID Status Reason Start Date Expiration Date V isits Requested Visits Authorized [id number] Closed Auto-Generate d Referral 10/22/2022 11/21/2023 1 1 [facility] for visit Narrative* Outpatient Procedure (Routine) - Closed Specialty Diagnoses / Procedures Referred By Dimitry starks Referred To Contact [facility] Diagnoses Family history of malignant neoplasm of gastrointestinal tract Encounter for screening for malignant neoplasm of colon Procedures COLONOSCOPY SCREENING COLONOSCOPY FLX DX W/COLLJ SPEC WHEN PFWendy Crystal, FENCE MAKER.MARINE EQUIPMENT PRESERVATION INSPECTOR [address] [place] [address] [facility] [place] [address] [place] [address] Referral ID Status Reason Start Date Expiration Date V isits Requested Visits Authorized [id number] Closed Auto-Generate d Referral 11/15/2023 11/14/2024 1 1 [facility] for visit Narrative* Diagnostic Procedure Only (Routine) - Closed Specialty Diagnoses / Procedures Referred By Dimitry starks Referred To Contact BR IMAGING Diagnoses Encounter for screening mammogram for breast cancer Procedures ELISE SCREENING SCREENING MAMMOGRAPHY BI 2-VIEW BREAST INC Sandra Paredes, FENCE MAKER.MARINE EQUIPMENT PRESERVATION INSPECTOR [address] [place] [address] Br Imaging [address] [place] [address] Referral ID Status Reason Start Date Expiration Date V isits Requested Visits Authorized [id number] Closed Auto-Generate d Referral 04/01/2023 04/30/2024 1 1 [facility] Summary Purpose Family History No Family History Records Found Relationship Condition Age at Onset Recorded Date/T [place] mother Coronary artery disease Unknown Diabetes mellitus Unknown brother Malignant neoplasm of colon Unknown daughter Blood disorder Unknown father Malignant neoplasm Unknown Advance Directives No Advanced Directives Records Found Advance Directive Response Recorded Date/ Time Advance Directives Yes May 19, 018 7:03am Living Will Yes May 07, 2019 12:37am Power of Cumulative Effects Analyst Yes May 06 12:37am Advance Directive Response Recorded Date/ Time Advance Directives Yes May 19, 018 6:03am Living Will Yes May 06, 2019 11:37pm Power of Cumulative Effects Analyst Yes May 05 11:37pm Documents on File Type Date Recorded Patient Hoe Runner Expl anation Advance Directive(s) 12/07/2013 9:32 AM Advance Directive(s) 12/07/2013 9:37 AM Documents on File Type Date Recorded Patient Hoe Runner Expl anation Advance Directive(s) 05/27/2022 11:55 AM Advance Directive(s) 12/07/2013 9:32 AM Advance Directive(s) 12/07/2013 9:37 AM Documents on File Type Date Recorded Patient Hoe Runner Expl anation Advance Directive(s) 05/27/2022 11:55 AM Advance Directive(s) 12/07/2013 9:32 AM Advance Directive(s) 12/07/2013 9:37 AM Documents on File Type Date Recorded Patient Hoe Runner Expl anation Advance Directive(s) 05/27/2022 11:55 AM Advance Directive(s) 12/07/2013 9:37 AM Advance Directive(s) 12/07/2013 9:32 AM Documents on File Type Date Recorded Patient Hoe Runner Expl anation Advance Directive(s) 05/27/2022 11:55 AM Advance Directive(s) 12/07/2013 9:37 AM Advance Directive(s) 12/07/2013 9:32 AM Documents on File Type Date Recorded Patient Hoe Runner Expl anation Advance Directive(s) 05/27/2022 11:55 AM Advance Directive(s) 12/07/2013 9:32 AM Documents on File Type Date Recorded Patient Hoe Runner Expl anation Advance Directive(s) 05/27/2022 11:55 AM Advance Directive(s) 12/07/2013 9:32 AM Advance Directive Response Recorded Date/ Time Advance Directives Yes May 19 7:03am Advance Directive Response Recorded Date/ Time Advance Directives Yes October 11:30am Chief Complaint and Reason for Visit Chief Complaint PAIN IN RIGHT SHOULD ER Chief Complaint Admit Date LUMBAR SPINE May 01, 2024 1:07 pm RM 8 May 01, 2024 1:48 pm OSTEO - COPY PCP May 23, 2024 10: 18am Reason for Visit Admit Date Degenerative disc disease, lumbar May 01, 2024 1:07pm Lumbar stenosis with neurogenic claudica tion May 01, 2024 1:07pm Chief Complaint Admit Date LUMBAR SPINE May 01, 2024 1:07 pm RM May 01, 2024 1:48 pm OSTEO - COPY PCP May 23, 2024 10: 18am Pain May 29, 2024 11: 54am Chief Complaint Admit Date LUMBAR SPINE May 01, 2024 1:07 pm RM 8 May 01, 2024 1:48 pm OSTEO - COPY PCP May 23, 2024 10: 18am Pain May 29, 2024 11: 54am LUMBAR SPINE June 06, 2024 12:4 5pm LUMBAR SPINE August 10, 2024 2:15 pm Reason for Visit Admit Date Degenerative disc disease, lumbar May 01, 2024 1:07pm Lumbar stenosis with neurogenic claudica tion May 01, 2024 1:07pm Degenerative disc disease, lumbar June 06, 2024 12:45pm Lumbar stenosis with neurogenic claudica tion June 06, 2024 12:45pm Scoliosis June 06, 2024 12:4 5pm Chief Complaint Admit Date LUMBAR SPINE August 10, 2024 2:15 pm MACHINE CHECK November 20, 2024 12:00pm Reason for Visit Admit Date Degenerative disc disease, lumbar July 302024 2:15pm Lumbar stenosis with neurogenic claudica tion August 10, 2024 2:15pm Scoliosis August 10, 2024 2:15 pm Reason for Referral Specialty Diagnoses / Procedures Referred By Dimitry t Referred To Contact MR IMAGING Diagnoses Spinal stenosis of lumbar region with neurogenic claudication Procedures MRI LUMBAR SPINE WO IVCON MRI SPINAL CANAL LUMBAR W/O CONTRAST MATERIAL Margaret Lomeli PA-C [address] [place] [address] [place] [address] Referral ID Status Reason Start Date Expiration Date Visits Requested Visits Authorized [id number] Pending Review Auto-Generat ed Referral 11/03/2022 12/03/2023 1 1 Specialty Diagnoses / Procedures Referred By Contac t Referred To Contact Neurology Diagnoses Spinal stenosis of lumbar region with neurogenic claudication Procedures CONSULT TO NEUROLOGY OFFICE/OUTPATIENT [facility] MDM 60-74 MINUTES Margaret Lomeli PA-C [address] [place] [address] Referral ID Status Reason Start Date Expiration Date V isits Requested Visits Authorized [id number] Closed PCP Requested Referral 12/03/2022 12/03/2023 1 1 Referral ID Status Reason Start Date Expiration Date V isits Requested Visits Authorized [id number] Closed Auto-Generate d Referral 11/03/2022 12/03/2023 1 1 Specialty Diagnoses / Procedures Referred By Contac t Referred To Contact General Surgery Diagnoses Screening for colon cancer Family history of malignant neoplasm of gastrointestinal tract Procedures CONSULT TO GENERAL SURGERY OFFICE/OUTPATIENT [facility] MDM 60 MINUTES Braulio Urrutia MD [address] [place] [address] Referral ID Status Reason Start Date Expiration Date Visits Requested Visits Authorized [id number] Authorized PCP Requested Referral 10/14/2023 10/13/2024 1 1 Additional Source Comments INFORMATION SOURCE (unrecogn ized section and content) DATE CREATED AUTHOR 12/04/2019 [facility] DATE CREATED AUTHOR AUTHOR'S ORGANIZ ATION 03/17/2022 [facility] DATE CREATED AUTHOR AUTHOR'S ORGANIZ ATION 06/03/2022 [facility] nt DATE CREATED AUTHOR AUTHOR'S ORGANIZ ATION 06/14/2022 [facility] DATE CREATED AUTHOR AUTHOR'S ORGANIZ ATION 02/26/2024 [facility] DATE CREATED AUTHOR AUTHOR'S ORGANIZ ATION 10/24/2024 [facility] DATE CREATED AUTHOR AUTHOR'S ORGANIZ ATION 12/21/2024 [facility] DATE CREATED AUTHOR AUTHOR'S ORGANIZ ATION 01/06/2025 [facility] Goals (unrecognized section and content) Goals may be documented in a n alternate sectionGoals may be documented in an alternate sectionGoals may be documented in an alternate sectionGoals may be documented in an alternate section No data available for this sectionGoals may be documented in an alternate sectionGoals may be documented in an alternate section Source Comments (unrecognize d section and content) In the event this informatio n is protected by the Federal Confidentiality of Alcohol and Drug Abuse Patient Records regulations: The Federal rules restrict any use of the information to criminally investigate or prosecute any alcohol or drug abuse patient.[facility] the event this information is protected by the Federal Confidentiality of Alcohol and Drug Abuse Patient Records regulations: The Federal rules restrict any use of the information to criminally investigate or prosecute any alcohol or drug abuse patient.[facility] HospitalIn the event this information is protected by the Federal Confidentiality of Alcohol and Drug Abuse Patient Records regulations: The Federal rules restrict any use of the information to criminally investigate or prosecute any alcohol or drug abuse patient.[facility] HospitalIn the event this information is protected by the Federal Confidentiality of Alcohol and Drug Abuse Patient Records regulations: The Federal rules restrict any use of the information to criminally investigate or prosecute any alcohol or drug abuse patient.[facility] HospitalIn the event this information is protected by the Federal Confidentiality of Alcohol and Drug Abuse Patient Records regulations: The Federal rules restrict any use of the information to criminally investigate or prosecute any alcohol or drug abuse patient.[facility] HospitalIn the event this information is protected by the Federal Confidentiality of Alcohol and Drug Abuse Patient Records regulations: The Federal rules restrict any use of the information to criminally investigate or prosecute any alcohol or drug abuse patient.[facility] HospitalIn the event this information is protected by the Federal Confidentiality of Alcohol and Drug Abuse Patient Records regulations: The Federal rules restrict any use of the information to criminally investigate or prosecute any alcohol or drug abuse patient.[facility] HospitalIn the event this information is protected by the Federal Confidentiality of Alcohol and Drug Abuse Patient Records regulations: The Federal rules restrict any use of the information to criminally investigate or prosecute any alcohol or drug abuse patient.[facility] HospitalIn the event this information is protected by the Federal Confidentiality of Alcohol and Drug Abuse Patient Records regulations: The Federal rules restrict any use of the information to criminally investigate or prosecute any alcohol or drug abuse patient.[facility] HospitalIn the event this information is protected by the Federal Confidentiality of Alcohol and Drug Abuse Patient Records regulations: The Federal rules restrict any use of the information to criminally investigate or prosecute any alcohol or drug abuse patient.[facility] HospitalIn the event this information is protected by the Federal Confidentiality of Alcohol and Drug Abuse Patient Records regulations: The Federal rules restrict any use of the information to criminally investigate or prosecute any alcohol or drug abuse patient.[facility] HospitalIn the event this information is protected by the Federal Confidentiality of Alcohol and Drug Abuse Patient Records regulations: The Federal rules restrict any use of the information to criminally investigate or prosecute any alcohol or drug abuse patient.[facility] HospitalIn the event this information is protected by the Federal Confidentiality of Alcohol and Drug Abuse Patient Records regulations: The Federal rules restrict any use of the information to criminally investigate or prosecute any alcohol or drug abuse patient.[facility] HospitalIn the event this information is protected by the Federal Confidentiality of Alcohol and Drug Abuse Patient Records regulations: The Federal rules restrict any use of the information to criminally investigate or prosecute any alcohol or drug abuse patient.[facility] HospitalIn the event this information is protected by the Federal Confidentiality of Alcohol and Drug Abuse Patient Records regulations: The Federal rules restrict any use of the information to criminally investigate or prosecute any alcohol or drug abuse patient.[facility] HospitalIn the event this information is protected by the Federal Confidentiality of Alcohol and Drug Abuse Patient Records regulations: The Federal rules restrict any use of the information to criminally investigate or prosecute any alcohol or drug abuse patient.[facility] HospitalIn the event this information is protected by the Federal Confidentiality of Alcohol and Drug Abuse Patient Records regulations: The Federal rules restrict any use of the information to criminally investigate or prosecute any alcohol or drug abuse patient.[facility] HospitalIn the event this information is protected by the Federal Confidentiality of Alcohol and Drug Abuse Patient Records regulations: The Federal rules restrict any use of the information to criminally investigate or prosecute any alcohol or drug abuse patient.[facility] HospitalIn the event this information is protected by the Federal Confidentiality of Alcohol and Drug Abuse Patient Records regulations: The Federal rules restrict any use of the information to criminally investigate or prosecute any alcohol or drug abuse patient.[facility] HospitalIn the event this information is protected by the Federal Confidentiality of Alcohol and Drug Abuse Patient Records regulations: The Federal rules restrict any use of the information to criminally investigate or prosecute any alcohol or drug abuse patient.[facility] HospitalIn the event this information is protected by the Federal Confidentiality of Alcohol and Drug Abuse Patient Records regulations: The Federal rules restrict any use of the information to criminally investigate or prosecute any alcohol or drug abuse patient.[facility] HospitalIn the event this information is protected by the Federal Confidentiality of Alcohol and Drug Abuse Patient Records regulations: The Federal rules restrict any use of the information to criminally investigate or prosecute any alcohol or drug abuse patient.[facility] HospitalIn the event this information is protected by the Federal Confidentiality of Alcohol and Drug Abuse Patient Records regulations: The Federal rules restrict any use of the information to criminally investigate or prosecute any alcohol or drug abuse patient.[facility] HospitalIn the event this information is protected by the Federal Confidentiality of Alcohol and Drug Abuse Patient Records regulations: The Federal rules restrict any use of the information to criminally investigate or prosecute any alcohol or drug abuse patient.[facility] HospitalIn the event this information is protected by the Federal Confidentiality of Alcohol and Drug Abuse Patient Records regulations: The Federal rules restrict any use of the information to criminally investigate or prosecute any alcohol or drug abuse patient.[facility] HospitalIn the event this information is protected by the Federal Confidentiality of Alcohol and Drug Abuse Patient Records regulations: The Federal rules restrict any use of the information to criminally investigate or prosecute any alcohol or drug abuse patient.[facility] HospitalIn the event this information is protected by the Federal Confidentiality of Alcohol and Drug Abuse Patient Records regulations: The Federal rules restrict any use of the information to criminally investigate or prosecute any alcohol or drug abuse patient.[facility] HospitalIn the event this information is protected by the Federal Confidentiality of Alcohol and Drug Abuse Patient Records regulations: The Federal rules restrict any use of the information to criminally investigate or prosecute any alcohol or drug abuse patient.[facility] HospitalIn the event this information is protected by the Federal Confidentiality of Alcohol and Drug Abuse Patient Records regulations: The Federal rules restrict any use of the information to criminally investigate or prosecute any alcohol or drug abuse patient.[facility] HospitalIn the event this information is protected by the Federal Confidentiality of Alcohol and Drug Abuse Patient Records regulations: The Federal rules restrict any use of the information to criminally investigate or prosecute any alcohol or drug abuse patient.[facility] HospitalIn the event this information is protected by the Federal Confidentiality of Alcohol and Drug Abuse Patient Records regulations: The Federal rules restrict any use of the information to criminally investigate or prosecute any alcohol or drug abuse patient.[facility] HospitalIn the event this information is protected by the Federal Confidentiality of Alcohol and Drug Abuse Patient Records regulations: The Federal rules restrict any use of the information to criminally investigate or prosecute any alcohol or drug abuse patient.[facility] HospitalIn the event this information is protected by the Federal Confidentiality of Alcohol and Drug Abuse Patient Records regulations: The Federal rules restrict any use of the information to criminally investigate or prosecute any alcohol or drug abuse patient.[facility] HospitalIn the event this information is protected by the Federal Confidentiality of Alcohol and Drug Abuse Patient Records regulations: The Federal rules restrict any use of the information to criminally investigate or prosecute any alcohol or drug abuse patient.[facility] HospitalIn the event this information is protected by the Federal Confidentiality of Alcohol and Drug Abuse Patient Records regulations: The Federal rules restrict any use of the information to criminally investigate or prosecute any alcohol or drug abuse patient.[facility] HospitalIn the event this information is protected by the Federal Confidentiality of Alcohol and Drug Abuse Patient Records regulations: The Federal rules restrict any use of the information to criminally investigate or prosecute any alcohol or drug abuse patient.[facility] HospitalIn the event this information is protected by the Federal Confidentiality of Alcohol and Drug Abuse Patient Records regulations: The Federal rules restrict any use of the information to criminally investigate or prosecute any alcohol or drug abuse patient.[facility] HospitalIn the event this information is protected by the Federal Confidentiality of Alcohol and Drug Abuse Patient Records regulations: The Federal rules restrict any use of the information to criminally investigate or prosecute any alcohol or drug abuse patient.[facility] HospitalIn the event this information is protected by the Federal Confidentiality of Alcohol and Drug Abuse Patient Records regulations: The Federal rules restrict any use of the information to criminally investigate or prosecute any alcohol or drug abuse patient.[facility] HospitalIn the event this information is protected by the Federal Confidentiality of Alcohol and Drug Abuse Patient Records regulations: The Federal rules restrict any use of the information to criminally investigate or prosecute any alcohol or drug abuse patient.[facility] HospitalIn the event this information is protected by the Federal Confidentiality of Alcohol and Drug Abuse Patient Records regulations: The Federal rules restrict any use of the information to criminally investigate or prosecute any alcohol or drug abuse patient.[facility] HospitalIn the event this information is protected by the Federal Confidentiality of Alcohol and Drug Abuse Patient Records regulations: The Federal rules restrict any use of the information to criminally investigate or prosecute any alcohol or drug abuse patient.[facility] HospitalIn the event this information is protected by the Federal Confidentiality of Alcohol and Drug Abuse Patient Records regulations: The Federal rules restrict any use of the information to criminally investigate or prosecute any alcohol or drug abuse patient.[facility] HospitalIn the event this information is protected by the Federal Confidentiality of Alcohol and Drug Abuse Patient Records regulations: The Federal rules restrict any use of the information to criminally investigate or prosecute any alcohol or drug abuse patient.[facility] HospitalIn the event this information is protected by the Federal Confidentiality of Alcohol and Drug Abuse Patient Records regulations: The Federal rules restrict any use of the information to criminally investigate or prosecute any alcohol or drug abuse patient.[facility] HospitalIn the event this information is protected by the Federal Confidentiality of Alcohol and Drug Abuse Patient Records regulations: The Federal rules restrict any use of the information to criminally investigate or prosecute any alcohol or drug abuse patient.[facility] HospitalIn the event this information is protected by the Federal Confidentiality of Alcohol and Drug Abuse Patient Records regulations: The Federal rules restrict any use of the information to criminally investigate or prosecute any alcohol or drug abuse patient.[facility] HospitalIn the event this information is protected by the Federal Confidentiality of Alcohol and Drug Abuse Patient Records regulations: The Federal rules restrict any use of the information to criminally investigate or prosecute any alcohol or drug abuse patient.[facility] HospitalIn the event this information is protected by the Federal Confidentiality of Alcohol and Drug Abuse Patient Records regulations: The Federal rules restrict any use of the information to criminally investigate or prosecute any alcohol or drug abuse patient.[facility] HospitalIn the event this information is protected by the Federal Confidentiality of Alcohol and Drug Abuse Patient Records regulations: The Federal rules restrict any use of the information to criminally investigate or prosecute any alcohol or drug abuse patient.[facility] HospitalIn the event this information is protected by the Federal Confidentiality of Alcohol and Drug Abuse Patient Records regulations: The Federal rules restrict any use of the information to criminally investigate or prosecute any alcohol or drug abuse patient.[facility] HospitalIn the event this information is protected by the Federal Confidentiality of Alcohol and Drug Abuse Patient Records regulations: The Federal rules restrict any use of the information to criminally investigate or prosecute any alcohol or drug abuse patient.[facility] HospitalIn the event this information is protected by the Federal Confidentiality of Alcohol and Drug Abuse Patient Records regulations: The Federal rules restrict any use of the information to criminally investigate or prosecute any alcohol or drug abuse patient.[facility] HospitalIn the event this information is protected by the Federal Confidentiality of Alcohol and Drug Abuse Patient Records regulations: The Federal rules restrict any use of the information to criminally investigate or prosecute any alcohol or drug abuse patient.[facility] HospitalIn the event this information is protected by the Federal Confidentiality of Alcohol and Drug Abuse Patient Records regulations: The Federal rules restrict any use of the information to criminally investigate or prosecute any alcohol or drug abuse patient.[facility] HospitalIn the event this information is protected by the Federal Confidentiality of Alcohol and Drug Abuse Patient Records regulations: The Federal rules restrict any use of the information to criminally investigate or prosecute any alcohol or drug abuse patient.[facility] HospitalIn the event this information is protected by the Federal Confidentiality of Alcohol and Drug Abuse Patient Records regulations: The Federal rules restrict any use of the information to criminally investigate or prosecute any alcohol or drug abuse patient.[facility] HospitalIn the event this information is protected by the Federal Confidentiality of Alcohol and Drug Abuse Patient Records regulations: The Federal rules restrict any use of the information to criminally investigate or prosecute any alcohol or drug abuse patient.[facility] HospitalIn the event this information is protected by the [facility] Confidentiality of Alcohol and Drug Abuse Patient Records regulations: The Federal rules restrict any use of the information to criminally investigate or prosecute any alcohol or drug abuse patient.[facility] HospitalIn the event this information is protected by the Federal Confidentiality of Alcohol and Drug Abuse Patient Records regulations: The Federal rules restrict any use of the information to criminally investigate or prosecute any alcohol or drug abuse patient.[facility] Care Teams (unrecognized sec tion and content) Etymology Teacher Relationship Specialty Start Date End Date Braulio Urrutia MD [address] [place], [place] [id number] PCP - General Family Medicine 12/26/12 Etymology Teacher Relationship Specialty Start Date End Date Braulio Urrutia MD [address] [place], [place] [id number] PCP - General Family Medicine 12/26/12 Etymology Teacher Relationship Specialty Start Date End Date Braulio Urrutia MD [address] [place], [place] [id number] PCP - General Family Medicine 12/26/12 Etymology Teacher Relationship Specialty Start Date End Date Braulio Urrutia MD [address] [facility] [place] [address] PCP - General Family Medicine 12/26/12 Etymology Teacher Relationship Specialty Start Date End Date Braulio Urrutia MD [address] [facility] [place] [address] PCP - General Family Medicine 12/26/12 Etymology Teacher Relationship Specialty Start Date End Date Braulio Urrutia MD [facility] [place] [address] PCP - General Family Medicine 12/26/12 Etymology Teacher Relationship Specialty Start Date End Date Braulio Urrutia MD [address] [place] [address], [place] [address] PCP - General Family Medicine 12/26/12 Etymology Teacher Relationship Specialty Start Date End Date Braulio Urrutia MD [address] [place] [address], [place] [address] PCP - General Family Medicine 12/26/12 Etymology Teacher Relationship Specialty Start Date End Date Braulio Urrutia MD [facility] [place] [address] PCP - General Family Medicine 12/26/12 Etymology Teacher Relationship Specialty Start Date End Date Braulio Urrutia MD [facility] [place] [place] [address] PCP - General Family Medicine 12/26/12 Etymology Teacher Relationship Specialty Start Date End Date Braulio Urrutia MD [facility] [place] [place] [address] PCP - General Family Medicine 12/26/12 Etymology Teacher Relationship Specialty Start Date End Date Braulio Urrutia MD [facility] [place] [place] [address] PCP - General Family Medicine 12/26/12 Etymology Teacher Relationship Specialty Start Date End Date Braulio Urrutia MD [address] [place] [address] PCP - General Family Medicine 12/26/12 Etymology Teacher Relationship Specialty Start Date End Date Braulio Urrutia MD [address] [place] [address] PCP - General Family Medicine 12/26/12 Etymology Teacher Relationship Specialty Start Date End Date Braulio Urrutia MD [address] [place] [address] PCP - General Family Medicine 12/26/12 Etymology Teacher Relationship Specialty Start Date End Date Braulio Urrutia MD [address] [place] [address] PCP - General Family Medicine 12/26/12 Etymology Teacher Relationship Specialty Start Date End Date Braulio Urrutia MD [address] [place] [address] PCP - General Family Medicine 12/26/12 Etymology Teacher Relationship Specialty Start Date End Date Braulio Urrutia MD [address] [place] [address] PCP - General Family Medicine 12/26/12 Etymology Teacher Relationship Specialty Start Date End Date Braulio Urrutia MD [address] [place] [address] PCP - General Family Medicine 12/26/12 Etymology Teacher Relationship Specialty Start Date End Date Braulio Urrutia MD [address] [place] [address] PCP - General Family Medicine 12/26/12 Etymology Teacher Relationship Specialty Start Date End Date Braulio Urrutia MD [address] [place] [address] PCP - General Family Medicine 12/26/12 Etymology Teacher Relationship Specialty Start Date End Date Braulio Urrutia MD [address] [place] [address] PCP - General Family Medicine 12/26/12 Etymology Teacher Relationship Specialty Start Date End Date Braulio Urrutia MD [address] [place] [address] PCP - General Family Medicine 12/26/12 Etymology Teacher Relationship Specialty Start Date End Date Braulio Urrutia MD [address] [place] [address] PCP - General Family Medicine 12/26/12 Etymology Teacher Relationship Specialty Start Date End Date Braulio Urrutia MD [address] [place] [address] PCP - General Family Medicine 12/26/12 Etymology Teacher Relationship Specialty Start Date End Date Braulio Urrutia MD [address] [place] [address] PCP - General Family Medicine 12/26/12 Etymology Teacher Relationship Specialty Start Date End Date Braulio Urrutia MD [address] [place] [address] PCP - General Family Medicine 12/26/12 Etymology Teacher Relationship Specialty Start Date End Date Braulio Urrutia MD [address] [place] [address] PCP - General Family Medicine 12/26/12 Etymology Teacher Relationship Specialty Start Date End Date Braulio Urrutia MD [address] [place] [address] PCP - General Family Medicine 12/26/12 Etymology Teacher Relationship Specialty Start Date End Date Braulio Urrutia MD [address] [place] [address] PCP - General Family Medicine 12/26/12 Etymology Teacher Relationship Specialty Start Date End Date Braulio Urrutia MD [address] [place] [address] PCP - General Family Medicine 12/26/12 Etymology Teacher Relationship Specialty Start Date End Date Braulio Urrutia MD [address] [place] [address] PCP - General Family Medicine 12/26/12 Etymology Teacher Relationship Specialty Start Date End Date Braulio Urrutia MD [address] [place] [address] PCP - General Family Medicine 12/26/12 Etymology Teacher Relationship Specialty Start Date End Date Braulio Urrutia MD [address] [place] [address] PCP - General Family Medicine 12/26/12 Etymology Teacher Relationship Specialty Start Date End Date Braulio Urrutia MD [address] [place] [address] PCP - General Family Medicine 12/26/12 Etymology Teacher Relationship Specialty Start Date End Date Braulio Urrutia MD [address] [place] [address] PCP - General Family Medicine 12/26/12 Etymology Teacher Relationship Specialty Start Date End Date Braulio Urrutia MD [address] [place] [address] PCP - General Family Medicine 12/26/12 Jenni Stahl APRN.MARINE EQUIPMENT PRESERVATION INSPECTOR [address] [place] [address] [facility] 02/05/24 Margaret Lomeli PA-C [address] [place] [address] [facility] 02/05/24 Etymology Teacher Relationship Specialty Start Date End Date Braulio Urrutia MD [address] [place] [address] PCP - General Family Medicine 12/26/12 Jenni Stahl APRN.MARINE EQUIPMENT PRESERVATION INSPECTOR [address] [place] [address] [facility] 02/05/24 Margaret Lomeli PA-C [address] [place] [address] [facility] 02/05/24 Etymology Teacher Relationship Specialty Start Date End Date Braulio Urrutia MD [address] [place] [address] PCP - General Family Medicine 12/26/12 Jenni Stahl, LIGIA.MARINE EQUIPMENT PRESERVATION INSPECTOR [address] [place] [address] [facility] Family [facility] 02/05/24 Margaret Lomeli PA-C [address] [place] [address] [facility] Etymology Teacher Relationship Specialty Start Date End Date Braulio Urrutia MD [address] [place] [address] PCP - General Family Medicine 12/26/12 Jenni Stahl APRN.MARINE EQUIPMENT PRESERVATION INSPECTOR [address] [place] [address] [facility] 02/05/24 Margaret Lomeli PA-C [address] [place] [address] [facility] 02/05/24 Etymology Teacher Relationship Specialty Start Date End Date Braulio Urrutia MD [address] [place] [address] PCP - General Family Medicine 12/26/12 Jenni Stahl APRN.MARINE EQUIPMENT PRESERVATION INSPECTOR [address] [place] [address] [facility] 02/05/24 Margaret Lomeli PA-C [address] [place] [address] [facility] 02/05/24 Etymology Teacher Relationship Specialty Start Date End Date Braulio Urrutia MD [address] [place] [address] PCP - General Family Medicine 12/26/12 Jenni Stahl APRN.MARINE EQUIPMENT PRESERVATION INSPECTOR [address] [place], [place] [address] [facility] 02/05/24 Margaret Lomeli PA-C [address] [place], [place] 52[address] [facility] 02/05/24 Etymology Teacher Relationship Specialty Start Date End Date Braulio Urrutia MD [address] [place], [place] [address] PCP - General Family Medicine 12/26/12 Jenni Stahl APRN.MARINE EQUIPMENT PRESERVATION INSPECTOR [address] [place], [place] 37[address]61 [facility] 02/05/24 Margaret Lomeli PA-C [address] [place], [place] [address] [facility] 02/05/24 Team Status: Active Member Role Status Dates Dr. Braulio Urrutia MD Primary Care Provider Active Team Status: Inactive Member Role Status Dates Dr. Braulio Urrutia MD Referring Provider Active Start: May 01, 2024 End: May 01, 2024 VANNESSA Sommers Attending Provider Active Star t: May 01, 2024 End: May 01, 2024 Team Status: Inactive Member Role Status Dates Dr. Qasim Acevedo MD Attending Provider Active S tart: May 01, 2024 End: May 01, 2024 Team Status: Inactive Member Role Status Dates VANNESSA Sommers Attending Provider Active Star t: May 23, 2024 End: May 23, 2024 VANNESSA Sommers Referring Provider Active Star t: May 23, 2024 End: May 23, 2024 Dr. Braulio Urrutia MD Primary Care Provider Active Start: May 23, 2024 End: May 23, 2024 Team Status: Inactive Member Role Status Dates VANNESSA Sommers Attending Provider Active Star t: May 29, 2024 End: May 29, 2024 VANNESSA Sommers Referring Provider Active Star t: May 29, 2024 End: May 29, 2024 Dr. Braulio Urrutia MD Primary Care Provider Active Start: May 29, 2024 End: May 29, 2024 Etymology Teacher Relationship Specialty Start Date End Date Braulio Urrutia MD [address] [place] [address] PCP - General Family Medicine 06/05/24 Jenni Sthal APRN.MARINE EQUIPMENT PRESERVATION INSPECTOR [address] [place] [address] [facility] 02/05/24 Margaret Lomeli PA-C [address] [place] [address] [facility] 02/05/24 Etymology Teacher Relationship Specialty Start Date End Date Braulio Urrutia MD [address] [place] [address] PCP - General Family Medicine 06/05/24 Jenni Stahl APRN.MARINE EQUIPMENT PRESERVATION INSPECTOR [address] [place] [address] [facility] 02/05/24 Margaret Lomeli PA-C [address] [place] [address] [facility] 02/05/24 Etymology Teacher Relationship Specialty Start Date End Date Braulio Urrutia MD [address] [place] [address] PCP - General Family Medicine 06/05/24 Jenni Stahl APRN.MARINE EQUIPMENT PRESERVATION INSPECTOR [address] [place] [address] [facility] 02/05/24 Margaret Lomeli PA-C [address] [place], [place] 6[address] [facility] 02/05/24 Etymology Teacher Relationship Specialty Start Date End Date Braulio Urrutia MD [address] [place] [address] PCP - General Family Medicine 06/05/24 Jenni Stahl APRN.MARINE EQUIPMENT PRESERVATION INSPECTOR [address] [place] [address] [facility] 07/31/24 Margaret Lomeli PA-C [address] [place] [address]1641 [facility] 07/31/24 Team Status: Inactive Member Role Status Dates VANNESSA Sommers Attending Provider Active Star t: June 06, 2024 End: June 06, 2024 Dr. Braulio Urrutia MD Primary Care Provider Active Start: June 06, 2024 End: June 06, 2024 Dr. Braulio Urrutia MD Referring Provider Active Start: June 06, 2024 End: June 06, 2024 Team Status: Inactive Member Role Status Dates Dr. Braulio Urrutia MD Primary Care Provider Active Start: August 10, 2024 End: August 10, 2024 Dr. Braulio Urrutia MD Referring Provider Active Start: August 10, 2024 End: August 10, 2024 Dr. Jamaal Herrera MD Attending Provider Active Start: August 10, 2024 End: August 10, 2024 Etymology Teacher Relationship Specialty Start Date End Date Braulio Urrutia MD [address] [place] [address] PCP - General Family Medicine 06/05/24 Jenni Stahl, LIGIA.MARINE EQUIPMENT PRESERVATION INSPECTOR [address] [place] [address] [facility] 07/31/24 Margaret Lomeli PA-C [address] [place] [address] [facility] 07/31/24 Etymology Teacher Relationship Specialty Start Date End Date Braulio Urrutia MD [address] [place] [address] PCP - General Family Medicine 06/05/24 Jenni Stahl APRN.MARINE EQUIPMENT PRESERVATION INSPECTOR [address] [place] [address] [facility] 07/31/24 Margaret Lomeli PA-C [address] [place] [address] [facility] 07/31/24 Etymology Teacher Relationship Specialty Start Date End Date Braulio Urrutia MD [address] [place] [address] PCP - General Family Medicine 06/05/24 Jenni Stahl, FENCE MAKER.MARINE EQUIPMENT PRESERVATION INSPECTOR [facility] [place] [address] [facility] 07/31/24 Margaret Lomeli PA-C [address] [place] [address] [facility] 07/31/24 Etymology Teacher Relationship Specialty Start Date End Date Braulio Urrutia MD [address] [place] [address] PCP - General Family Medicine 06/05/24 Jenni Stahl APRN.MARINE EQUIPMENT PRESERVATION INSPECTOR [address] [place] [address] [facility] 07/31/24 Margaret Lomeli PA-C [address] [place] [address] [facility] 07/31/24 Etymology Teacher Relationship Specialty Start Date End Date Braulio Urrutia MD [address] [place] [address] PCP - General Family Medicine 06/05/24 Jenni Stahl, LIGIA.MARINE EQUIPMENT PRESERVATION INSPECTOR [address] [place] [address] [facility] 07/31/24 Margaret Lomeli PA-C [address] [place] [address] [facility] Team Status: Active Member Role/Relationship Status Dates Dr. Braulio Urrutia MD Primary care physician Active Team Status: Inactive Member Role/Relationship Status Dates Dr. Braulio Urrutia MD Primary care physician Active Start: August 10, 2024 End: August 10, 2024 Dr. Braulio Urrutia MD Referring Provider Active Start: August 10, 2024 End: August 10, 2024 Dr. Jamaal Herrera MD Attending physician Active Start: August 10, 2024 End: August 10, 2024 Team Status: Inactive Member Role/Relationship Status Dates Dr. Braulio Urrutia MD Primary care physician Active Start: November 20, 2024 End: November 20, 2024 Dr. Braulio Urrutia MD Attending physician Active Start: November 20, 2024 End: November 20, 2024 Reason for Visit (unrecogniz ed section and content) Reason Comments PT Discharge Specialty Diagnoses / Procedures Referred By Contac t Referred To Contact Physical Therapy / PHYSICAL THERAPY Diagnoses Spinal stenosis of lumbar region with neurogenic claudication Lumbar radiculopathy Morbid obesity (HCC) Procedures CONSULT TO PHYSICAL THERAPY Dimitri Lott PA-C [address] [place] [address] Pt [facility] [address] [place] [address] Referral ID Status Reason Start Date Expiration Date V isits Requested Visits Authorized [id number] Authorized 12/09/2022 03/09/2023 99 99 Reason Comments Results Reason Comments Medicare Wellness Exam Reason Onset Date Comments Refill Request 02/14/2022 Reason Comments Pre-Op Exam Reason Comments Numbness Right leg Reason Onset Date Comments Refill Request 06/20/2022 Reason Comments 6 Month Exam Reason Comments Pain Right outer knee Reason Onset Date Comments EMG 10/30/2022 Specialty Diagnoses / Procedures Referred By Contac t Referred To Contact [facility] Diagnoses Right leg pain Chronic pain of right knee Numbness and tingling Procedures EMG(NEURO/NI) NERVE CONDUCTION STUDIES 9-10 STUDIES Margaret Lomeli PA-C [address] [place] [address] [facility] [address] [place] [address] Referral ID Status Reason Start Date Expiration Date V isits Requested Visits Authorized [id number] Closed Auto-Generate d Referral 10/22/2022 10/23/2023 1 1 Reason Comments Results Reason Comments PT Eval Specialty Diagnoses / Procedures Referred By Contac t Referred To Contact Physical Therapy Diagnoses Spinal stenosis of lumbar region with neurogenic claudication Lumbar radiculopathy Morbid obesity (HCC) Procedures CONSULT TO PHYSICAL THERAPY Dimitri Lott PA-C [address] [place] [address] Reason Onset Date Comments Refill Request 12/19/2022 Reason Comments Physical Therapy Specialty Diagnoses / Procedures Referred By Contac t Referred To Contact MR IMAGING Diagnoses Spinal stenosis of lumbar region with neurogenic claudication Procedures MRI LUMBAR SPINE WO IVCON MRI SPINAL CANAL LUMBAR W/O CONTRAST MATERIAL Margaret Lomeli PA-C [address] [place] [address] [place] [id number] Referral ID Status Reason Start Date Expiration Date V isits Requested Visits Authorized [id number] Closed Auto-Generate d Referral 11/03/2022 12/03/2023 1 1 Reason Comments Well Woman Reason Comments outside pain management Reason Comments F/U 6 months Reason Comments Results EMG Reason Comments Consult Specialty Diagnoses / Procedures Referred By Contac t Referred To Contact General Surgery Diagnoses Screening for colon cancer Family history of malignant neoplasm of gastrointestinal tract Procedures CONSULT TO GENERAL SURGERY OFFICE/OUTPATIENT [facility] 60 MINUTES Braulio Urrutia MD [address] [place] [address] Referral ID Status Reason Start Date Expiration Date V isits Requested Visits Authorized [id number] Closed PCP Requested Referral 10/14/2023 10/13/2024 1 1 Reason Comments Pre-Op Visit Reason Onset Date Comments Refill Request 03/05/2024 Reason Comments Outside Pain Medicine Reason Comments Outside Ortho Reason Comments Bone Density Reason Comments Results Outside MRI Reason Comments Laceration left index finger, c utting hedges x 1 hour Reason Comments ER F/U Reason Onset Date Comments Results 08/01/2024 Reason Comments Forms [employer] Reason Onset Date Comments Population Health Navigation Outreach [facility] Reason Comments Clinical Update FOR RECORDS PERTAINING TO PATIENTS WHO ARE OR HAVE BEEN ENROLLED IN A CHEMICAL DEPENDENCY/SUBSTANCEABUSE PROGRAM, SOME INFORMATION MAY BE OMITTED. This clinical summary was aggregated from multiple sources. Caution should be exercised in using it in the provision of clinical care. This summary normalizes information from multiple sources, and as a consequence, information in this document may materially change the coding, format and clinical context of patient data. In addition, data may be omitted in some cases. CLINICAL DECISIONS SHOULD BE BASED ON THE PRIMARY CLINICAL RECORDS. [employer] [facility]. provides no warranty or guarantee of the accuracy or completeness of information in this document.
[2025-02-14] MEDS: Lactated Ringers 1,000 ML 15 ML IV (06:09)
--- NOTE | 2025-02-14 06:39 | PCM.PRE.AN2 ---
ASA Classification* ASA Classification ASA Classification: 3 Assessment & Plan Anesthesia* Anesthesia Assessment Anesthesia Assessment: Discussed sedation and/or anesthesia options, risks, benefits, and alternatives with patient/parents/legal guardian/POA. Questions invited. The patient/parents/legal guardian/POA seems to understand and agrees to proceed with anesthesia plan. Reviewed the physical assessment, medical history, allergy history and patient home medications list prior to surgery/procedure/anesthetic and documented any changes. Performed airway and anesthesia risk assessments. Anesthesia Type Anesthesia Type: General (Patient most recent hemoglobin is 11.9. 2 units of typed and crossed blood and are available for the patient. Consider GlideScope for intubation.) History Source History Obtained from:: Patient and Chart Anesthesia Focused Assessment* Temperature: 98.6 F Pulse Rate: 81 Blood Pressure: 128/82 Respiratory Rate: 16 Pulse Ox: 95 Oxygen Delivery Method: Room Air Airway Assessment Mouth opens: >3 cm Mallampati Score: IV Teeth Condition: Chipped/Broken (Patient has chipped top incisors. They have been repaired.) Neck Range of motion (ROM): Limited ROM (Somewhat Decreased) Labs Anesthesia Preop lab: CBC WBC, (4.4-11.0) 4.1 K/mm3 L 07/10/21, 14:40 RBC, (4.2-5.4) 3.95 M/mm3 L 07/10/21, 14:40 Hgb, (12.0-15.0) 12.6 g/dL 07/10/21, 14:40 Hct, (37-47) 38.7 % 07/10/21, 14:40 Plt Count, (150-450) 357 K/mm3 07/10/21, 14:40 CHEMISTRY Potassium, (3.5-5.1) 3.5 mmol/L 03/21/20, 09:45 Sodium, (136-145) 138 mmol/L 03/21/20, 09:45 BUN, (7-18) 20 mg/dL H 03/21/20, 09:45 Creatinine, (0.55-1.02) 0.94 mg/dL 03/21/20, 09:45 Glucose, (74-106) 91 mg/dL 03/21/20, 09:45 POC Glucose, (74-106) 94 mg/dL Today, 05:54 COAG PT, (11.7-14.9) 12.9 SECONDS 02/02/25, 13:21 Pre-Assessment Diagnosis/Proposed Procedure Planned Operative Procedure(s): LUMBAR LAMINECTOMY DECOMPRESSION L3-4,L4-5,L5-S1 Anesthesia History 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 When Was Last Pacemaker Check QUESTION #4 FULL TEXT: You/Your Family Experience fever (hyperthermia) with Anesthesia Last Oral Intake Last Oral intake: Last Oral Intake NPO since 03:30 02/14/25 05:59 Meds taken in AM with sips of Yes 02/14/25 05:59 water? Meds patient instructed to see mar 02/14/25 05:59 take am of surgery Any additional information?: Yes NPO since: 03:30 (Patient had her preop Ensure at 3:30 AM.) Meds taken in AM with sips of water?: Yes PONV PONV - public works director: PONV - public works director Female Yes 01/29/25 09:26 HX of Motion Sickness Yes 01/29/25 09:26 HX of N/V After Surgery No 01/29/25 09:26 Non-Smoker Yes 01/29/25 09:26 Duration of Surgery greater Yes 01/29/25 09:26 than 60 minutes Number of Risk Factors 4 01/29/25 09:26 PONV Score Severe Risk 01/29/25 09:26 Height & Weight Height & Weight: Anesthesia: Height & Weight Height 5 ft 3 in 02/14/25 05:59 Weight: 133.356 kg 02/14/25 05:59 Body Mass Index (BMI) 52.0 02/14/25 05:59 Respiratory Assessment Respiratory Assessment - public works director: Respiratory Tract Infection Hx - public works director Hx Respiratory Tract Infection No 01/29/25 09:26 STOP Sleep Apnea STOP Sleep Apnea - public works director: STOP Sleep Apnea - public works director Hx Hypertension Yes: CONTROLLED WITH MED 01/29/25 09:26 Hx Sleep Apnea Yes 01/29/25 09:26 CPAP Yes 01/29/25 09:26 BIPAP No 01/29/25 09:26 Do you snore loudly (louder than talking or can be heard Do you often feel tired/ fatigued/ sleepy during daytime? Has anyone observed you stop breathing during sleep? STOP Results Positive 01/29/25 09:26 QUESTION #5 FULL TEXT : Do you snore loudly (louder than talking or can be heard through closed doors)? 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 Specify any problems Hx of Preganancy in last 3 No 01/29/25 09:26 Months Nurse Filling Out Transfusion DSCHRIBER 01/29/25 09:26 & Questions: Date: 01/29/25 01/29/25 09:26 Time: 09:28 01/29/25 09:26 Patient unable to answer at this time (ie. confused, unrespo /Reproduction History /Reproductive History - public works director: /Reproductive Hx- public works director Hx Now No 01/29/25 09:26 Gestational Age (in weeks): EDC: Hx Hx Para Hx Section SAB No 01/29/25 09:26 Does the father of the baby or his family experience fever w Father of the baby Malignant Hypertension history comment Active Medications Active Medications: Current Medications Generic Name Dose Route Start Last Admin Trade Name Freq PRN Reason Stop Dose Admin Acetaminophen 1,000 mg 02/14/25 07:30 02/14/25 06:09 Acetaminophen 500 Mg Tablet PO 02/14/25 07:31 1,000 mg PREOP ONE Administration Cefazolin Sodium 3 gm/ Sodium 115 mls @ 150 mls/hr 02/14/25 07:30 Chloride IV 02/14/25 08:15 INTRAOP ONE Tranexamic Acid 1,000 mg/ 110 mls @ 440 mls/hr 02/14/25 07:30 Sodium Chloride IV 02/14/25 07:44 INTRAOP ONE Tranexamic Acid 1,000 mg/ 110 mls @ 440 mls/hr 02/14/25 07:30 Sodium Chloride IV 02/14/25 07:44 INTRAOP ONE Lactated Ringer's 1,000 mls @ 15 mls/hr 02/14/25 05:45 02/14/25 06:09 IV 15 mls/hr .Q48H JUWAN Administration Insulin Human Lispro 1 - 6 unit 02/14/25 07:30 Insulin Lispro 100 Unit/Ml Insuln.Pen SC 02/14/25 18:00 Q4H PRN PRN BG>/= 180, SEE PROTOCOL Protocol PFSH Medical History Wears glasses Cancer Post-menopausal History of steroid therapy Rheumatoid arthritis Bladder disease Anemia High cholesterol Easy bruising Restless legs Back pain Non-smoker CPAP (continuous positive airway pressure) dependence History of pain when walking History of edema History of echocardiogram History of stress test Hypertension Osteoarthritis Morbid obesity due to excess calories Hiatal hernia GERD (gastroesophageal reflux disease) Anxiety Home Medications ?Medication ?Instructions ?Recorded ?Last Taken ?Type ascorbic acid (vitamin C) 500 mg 500 mg PO DAILY@0800 09/16/15 Unknown History tablet cyclobenzaprine 10 mg tablet 10 mg PO QHS 09/16/15 Unknown History fluoxetine 40 mg capsule 40 mg PO DAILY 09/16/15 02/14/25 History lisinopril 10 mg tablet 10 mg PO DAILY 09/16/15 02/13/25 History multivitamin with folic acid 400 1 tab PO DAILY 09/16/15 Unknown History mcg tablet zolpidem 10 mg tablet 10 mg PO QHS 09/16/15 Unknown History aspirin 81 mg tablet,delayed 81 mg PO DAILY 05/17/17 02/09/25 History release (Adult Low Dose Aspirin) cholecalciferol (vitamin D3) 10 400 unit PO QDAY 05/17/17 Unknown History mcg (400 unit) capsule glucosamine-chondroitin 250 mg-200 1 tab PO QAM 05/17/17 Unknown History mg tablet (Osteo Bi-Flex) acetaminophen 650 mg 650 mg PO Q12H 05/01/24 Unknown History tablet,extended release (Tylenol Arthritis Pain) hydroxychloroquine 200 mg tablet 200 mg PO BID 05/01/24 02/14/25 History meloxicam 15 mg tablet 15 mg PO QDAY 05/01/24 Unknown History mirabegron 50 mg tablet,extended 50 mg PO QDAY 05/01/24 02/14/25 History release 24 hr omeprazole 40 mg capsule,delayed 40 mg PO QDAY 05/01/24 02/14/25 History release spironolactone 25 mg tablet 25 mg PO QDAY 05/01/24 Unknown History calcium carbonate 600 mg PO DAILY 01/29/25 Unknown History conjugated estrogens 0.625 mg/gram 0.625 mg vaginal SUWE 01/29/25 Unknown History vaginal cream montelukast 10 mg tablet 10 mg PO QHS 01/29/25 Unknown History (Singulair) pregabalin 50 mg capsule 50 mg PO TID Spinal Stenosis 01/29/25 02/14/25 History Allergy/AdvReac Type Severity Reaction Status Date / Time poison seema extract Allergy Rash Verified 02/14/25 05:57 codeine AdvReac Itching Verified 02/14/25 05:57 hydrocodone bitartrate (From AdvReac Itching Verified 02/14/25 05:57 Vicodin) hydromorphone HCl (From AdvReac Itching Verified 02/14/25 05:57 Dilaudid) meperidine (From Demerol) AdvReac Itching Verified 02/14/25 05:57 morphine AdvReac Itching Verified 02/14/25 05:57 oxycodone HCl (From Percocet) AdvReac Itching Verified 02/14/25 05:57 Family History Mother CAD (coronary artery disease) CAD in her 80's AAA Diabetes Brother Colon cancer Daughter Blood disorder Von Willinberg's Disease and Thrombocytosis Father Cancer Lung Cancer Surgical History History of repair of rectocele Hx of colonoscopy Hx of right cataract extraction Hx of left cataract extraction History of cardiac catheterization History of thumb surgery History of thumb surgery Hx of total knee arthroplasty Hx of total knee arthroplasty History of repair of rotator cuff H/O total vaginal hysterectomy History of bunionectomy of left great toe left ankle surgery Social History Smoking Status: Never smoker alcohol intake: current Review of Systems (Anesthesia) ROS Narrative System reviewed and no additional complaints, except as documented.
--- NOTE | 2025-02-14 07:15 | HP.PCM_ITS ---
History and Physical Date of Admission: 02/14/25 MR#: [id number] Acct: [id number] Name: NIA KIRAN Rep #: [id number] : 1950 Provider: Dr. Jamaal Herrera MD Age/Sex: 74/F Location: [facility] [place] Status: Signed Intake Vital Signs 10/31/2510:30 02/02/2513:36 Height 5 ft 3 in 5 ft 3 in Weight: 290 lb BMI 51.3 Intake Visit Reasons: lumbar spine Chief Complaint: Lumbar spine pre op Accompanied by: Self Is patient in pain?: No Allergies poison seema extract Allergy (Verified 02/02/25 13:41) Rash acetaminophen (From Percocet) Adverse Reaction (Verified 02/02/25 13:41) Itching codeine Adverse Reaction (Verified 02/02/25 13:41) Itching hydrocodone bitartrate (From Vicodin) Adverse Reaction (Verified 02/02/25 13:41) Itching hydromorphone HCl (From Dilaudid) Adverse Reaction (Verified 02/02/25 13:41) Itching meperidine (From Demerol) Adverse Reaction (Verified 02/02/25 13:41) Itching morphine Adverse Reaction (Verified 02/02/25 13:41) Itching oxycodone HCl (From Percocet) Adverse Reaction (Verified 02/02/25 13:41) Itching Medications ?Medication ?Instructions ?Recorded ?Confirmed ?Type ascorbic acid (vitamin C) 500 mg 500 mg PO DAILY@0800 09/16/15 02/02/25 H istory tablet cyclobenzaprine 10 mg tablet 10 mg PO QHS 09/16/15 02/02/25 History fluoxetine 40 mg capsule 40 mg PO DAILY 09/16/15 02/02/25 History lisinopril 10 mg tablet 10 mg PO DAILY 09/16/15 02/02/25 History multivitamin with folic acid 400 1 tab PO DAILY 09/16/15 02/02/25 History mcg tablet zolpidem 10 mg tablet 10 mg PO QHS 09/16/15 02/02/25 History aspirin 81 mg tablet,delayed 81 mg PO DAILY 05/17/17 02/02/25 History release (Adult Low Dose Aspirin) cholecalciferol (vitamin D3) 10 400 unit PO QDAY 05/17/17 02/02/25 Histo ry mcg (400 unit) capsule glucosamine-chondroitin 250 mg-200 1 tab PO QAM 05/17/17 02/02/25 History mg tablet (Osteo Bi-Flex) acetaminophen 650 mg 650 mg PO Q12H 05/01/24 02/02/25 History tablet,extended release (Tylenol Arthritis Pain) hydroxychloroquine 200 mg tablet 200 mg PO BID 05/01/24 02/02/25 History meloxicam 15 mg tablet 15 mg PO QDAY 05/01/24 02/02/25 History mirabegron 50 mg tablet,extended 50 mg PO QDAY 05/01/24 02/02/25 History release 24 hr omeprazole 40 mg capsule,delayed 40 mg PO QDAY 05/01/24 02/02/25 History release spironolactone 25 mg tablet 25 mg PO QDAY 05/01/24 02/02/25 History calcium carbonate 600 mg PO DAILY 01/29/25 02/02/25 Histor y conjugated estrogens 0.625 mg/gram 0.625 mg vaginal SUWE 01/29/25 02/02/25 History vaginal cream montelukast 10 mg tablet 10 mg PO QHS 01/29/25 02/02/25 History (Singulair) pregabalin 50 mg capsule 50 mg PO TID Spinal Stenosis 01/29/25 History Have you fallen in the past year?: No PFSH Medical History Wears glasses Cancer Post-menopausal History of steroid therapy Rheumatoid arthritis Bladder disease Anemia High cholesterol Easy bruising Restless legs Back pain Non-smoker CPAP (continuous positive airway pressure) dependence History of pain when walking History of edema History of echocardiogram History of stress test Hypertension Osteoarthritis Morbid obesity due to excess calories Hiatal hernia GERD (gastroesophageal reflux disease) Anxiety Surgical History History of repair of rectocele Hx of colonoscopy Hx of right cataract extraction Hx of left cataract extraction History of cardiac catheterization History of thumb surgery History of thumb surgery Hx of total knee arthroplasty Hx of total knee arthroplasty History of repair of rotator cuff H/O total vaginal hysterectomy History of bunionectomy of left great toe left ankle surgery Family History Mother CAD (coronary artery disease) CAD in her 80's AAA Diabetes Brother Colon cancer Daughter Blood disorder Von Willinberg's Disease and Thrombocytosis Father Cancer Lung Cancer Social History Smoking Status: Never smoker alcohol intake: current HPI lumbar spine Details: This documentation accurately reflects the service provided and the decisions made by me, Dr. Jamaal Herrera MD 02/02/25 [id number]. Part of today?s visit was documented by Paul Rashid MA, acting as scribe. NIA KIRAN is a 74 year old F here today for lumbar spine pre op. Patient states that she doesn't have any pain today. She would like to go over the surgery details. The patient is a 74-year-old female presenting for a preoperative consultation for a scheduled laminectomy for spinal stenosis. She reports a significant increase in pain since her last visit in July, which is primarily localized to her right leg, although she experiences numbness in both feet. Her leg pain is being managed with Lyrica. Her mobility is severely limited by pain, restricting her walking to short distances, and she avoids uneven surfaces due to a fear of falling, though she denies needing a cane or walker. Her medical history is significant for scoliosis and arthritis, which are contributing to the stenosis. She has had multiple orthopedic surgeries, including bilateral knee replacements, and reports a history of excessive scar tissue formation, which led to knee stiffness requiring manipulation under anesthesia after one procedure. The patient denies any history of diabetes or smoking. She takes a daily baby aspirin, which is self-prescribed, and denies any other blood thinner use. She had a shoulder injection in October. She uses a CPAP machine at home. The patient lives in a home with multiple steps to enter and to access her upstairs bedroom and bathroom. She has a supportive partner and four daughters. Attestation: Documentation on this patient encounter was supported using ambient scribe technology/ voice AI technology. The patient consented to recording for the purpose of documenting the encounter. Provider reviewed content of the generated note prior to signature. 08/10/24: NIA KIRAN is a 73 year old F here today to discuss her MRI results. She does see Dr. Holman in pain management and has received injections into her lumbar spine. The last injection was in March and she reports that they are no longer helpful. She complains of low back pain that is worse on the left side. She reports numbness into her left leg. She also reports pain into her right leg when she ambulates. She has no pain when she is sitting. She is not able to stand or walk for long distances, she has to hunch over and lean on a shopping cart to get relief. She does not have pain into her groin or thighs. She does not have a history of diabetes, heart or lung problems. She does not take blood thinners. She does not have a history of strokes. 06/06/24: NIA KIRAN is a 73 year old F here today for bone density and MRI review. Patient states the pain has stayed the same since her last visit. Says that this pain continues to make it difficult for her to stand or walk for longer than 10 minutes at a time. Says that this has significantly decreased her quality of life and has made it difficult for her to enjoy things that she wishes to do such as traveling with her granddaughters. She is scheduled for an injection tomorrow with Dr. Holman. No diabetes, no heart or lung issues, no blood thinners. Hysterectomy surgery incision. Denies any other abdominal surgeries. Patient sees Dr. Lopez at the [facility] rheumatology. 05/01/2024: NIA KIRAN is a 73 year old F here today NEW patient for low back pain that she has been having for 2 years. She did have an MRI at [facility] 2 years ago and she did bring the report today with her. She does have radiating pain down her left leg that stops at her ankle and she gets numbness in her left foot which is constant. She gets right sided pain down the back of her leg to her lateral right calf. Says that she can only stand for 10 minutes at a time before she needs to sit down due to the pain in her leg. This has been worsening over the last year. Says that standings will also cause her left foot to go numb. Walking as worsened and needs to lean on a shopping cart when grocery shopping however it has gotten to the point she she is not able to even go grocery shopping and has to order online. She denies previous surgeries on her back. She does seen Dr. Holman for pain management and she states that for her next procedure he wants to try an ablation. Her last injection with him was about 2 months ago which gave her relief for a day which she thinks is more from the anesthetic. She has done 2 months of PT in the past in 2022 which didn't give her any relief but she hasn't done any recently. She continues to try and do stretches and the home exercise program at home but notes that they aren't very helpful. She denies recent imaging of her lumbar spine. She denies taking any medication for her low back pain. History of RA and takes Plaquenil, meloxicam, and Tylenol. ROS ROS Narrative Review of Systems - Musculoskeletal: Reports increased pain in the right leg. - Neurological: Reports numbness in both feet and feeling unsteady on uneven surfaces. - Respiratory: Reports use of CPAP. - Genitourinary: Denies dysuria. - Constitutional: Reports having gotten shorter by 2-3 inches. Ortho Exam General General: Yes no acute distress Neurologic: Yes alert Psychologic: Yes reasonable and appropriate Spine SPINE TESTING CERVICAL THORACIC LUMBAR Musculoskeletal Strength 0=absent - 5=normal Details: Neurological exam of the lower extremities shows 5x5 power. Normal sensations across all dermatomes. No hyperreflexia. Mild midline and right paraspinal tenderness. Coding Level of Care Code Off vis,est,level 4 Diagnoses Lumbar stenosis with neurogenic claudication M48.062 Degeneration of intervertebral disc of lumbar region with discogenic back pain and lower extremity pain M51.362 Disc-related pain type: discogenic back pain and lower extremity pain Other secondary scoliosis, lumbar region M41.56 Scoliosis type: other secondary scoliosis Spinal region: lumbar Additional Codes Intake - Is patient in pain?: No (1126F) Time Spent (min) 35 Assessment and Plan Assessment and Plan (1) Lumbar stenosis with neurogenic claudication: Status: Acute (2) Degenerative disc disease, lumbar: Status: Acute Qualifiers: Disc-related pain type: discogenic back pain and lower extremity pain Qualified Code(s): M51.362 - Other intervertebral disc degeneration, lumbar region with discogenic back pain and lower extremity pain (3) Scoliosis: Status: Acute Qualifiers: Scoliosis type: other secondary scoliosis Spinal region: lumbar Qualified Code(s): M41.56 - Other secondary scoliosis, lumbar region Plan Assessment and Plan 1. Spinal Stenosis - The patient presents for preoperative counseling for her scheduled L3-S1 decompression laminectomy. - She reports worsening right leg pain and bilateral foot numbness, which significantly impacts her ambulation. - Her symptoms are consistent with spinal stenosis, compounded by underlying arthritis and scoliosis, which will not be corrected by the procedure. - The patient specifically does not want a spinal fusion. - Proceed with L3-S1 laminectomy scheduled for February 14 to decompress the central canal. - The patient will be admitted for overnight observation post-surgery. - Instructed the patient to stop baby aspirin one week before surgery and restart three days after. - Postoperatively, the patient will be mobilized early with nursing and will be evaluated by physical therapy for ambulation and negotiation of stairs before discharge. - Discussed risks including infection, bleeding, hematoma, nerve injury, persistent pain, future instability requiring fusion, DVT/PE, and pneumonia. - Postoperative restrictions include no heavy lifting or excessive twisting/bending for three months. - Follow-up scheduled in two weeks for suture or staple removal. - Outpatient physical therapy will be considered if back pain persists beyond 2- 3 months. Patient Instructions - You are scheduled for a laminectomy surgery on February 14 to help with your leg pain and numbness by cleaning out the spinal stenosis. - This surgery will not involve a spinal fusion. - Please stop taking your daily baby aspirin one week before the surgery and you can restart it three days after. - Plan to stay in the hospital for one night after your surgery. Please bring your CPAP machine with you. - It is very important to get up and walk around with a nurse's help soon after surgery to help with healing and prevent blood clots. - A physical therapist will work with you the morning after surgery to ensure you can walk safely and go up and down stairs, since your bedroom is upstairs. - For the first three months after surgery, do not lift anything heavy or do any excessive twisting and bending of your back. - You can start driving again when you are no longer taking pain medications that could make you drowsy and when your pain is not distracting. - A follow-up appointment will be scheduled in two weeks to remove your connor or sutures. - Focus on walking and deep breathing exercises after surgery to speed up recovery and prevent lung complications. Again reviewed prior lumbar x-rays from April 2024 which showed a dextroscoliosis, multilevel disc height loss throughout the lumbar spine. Reviewed MRI from May 29, 2024 which showed L4-5 severe canal stenosis with mild bilateral neuroforaminal narrowing, L5-S1 severe canal stenosis with severe bilateral neuroforaminal narrowing. Subtle L5-S1 spondylolisthesis with vacuum phenomenon extension view noticed. Also reviewed DEXA scan from May 23, 2024 which showed osteopenia. Discussed options of treatment including continued nonsurgical treatment versus surgery. These options include pain management, a lumbar fusion versus a laminectomy. We discussed the risks, benefits and alternatives to each including patients BMI possibly affecting healing and increasing her post op pain. We discussed the importance of decreasing her BMI before surgery, she is in agreement. Discussed pros and cons of decompression with fusion versus decompression alone surgery. Patient had multiple questions regarding ROM after a fusion we discussed that her ROM should not decrease with surgery as she would compensate with other deficits and hip joints. At this time patient feels her leg symptoms and claudication are worse than her axial back pain, and I recommend L3-S1 laminectomy decompression, although she may have worsening scoliosis or instability in the future in the absence of fusion. Discussed this procedure in detail and explained the risks, benefits and alternatives. The risks include but are not limited to infection, bleeding, hematoma formation, need for further surgery, need nerve root injury, persistent pain, persistent numbness and weakness, foot drop, DVT, pulmonary embolism, pneumonia, atelectasis, cardiopulmonary event, iatrogenic instability, need for fusion in future, recurrent disc herniation. Answered all questions to the patient?s satisfaction. Patient understands and agrees to proceed with surgery. Consent was signed. Follow up two weeks post operatively or sooner if pain, swelling, numbness or associated symptoms, or concerns develop.All questions answered. Patient in agreement of plan.
[2025-02-14] MEDS: Midazolam 2 MG/2 ML Syringe IV (07:36)
[2025-02-14] MEDS: Lidocaine 1% (5 ml sdv) 5 ML Vial IV (07:43)
[2025-02-14] MEDS: Cefazolin 1 GM/5 ML Vial 3 GM IV (07:46)
--- NOTE | 2025-02-14 10:00 | RAD_ITS ---
PROCEDURE: LUMBAR SPINE 2 OR 3 VIEWS 02/14/2025 REASON FOR EXAM: LAMINECTOMY, LUMBAR MICRO DECOMPRESSION L3-S1 TECHNIQUE: Procedure Code: RADSPLL Modality: DX Procedure: LUMBAR SPINE 2 OR 3 VIEWS COMPARISON: None FINDINGS: Fluoro was provided 17.6 seconds, 25.73 mGy, 3 images. RAD/Lumbar Spine 2 or 3 Views IMPRESSION: Fluoro was provided. Reading Location: [facility]
[2025-02-14] MEDS: TRANEXAMIC ACID 1,000 MG/10 ML ML 2000 MG IV (10:07)
[2025-02-14] MEDS: fentaNYL 100 MCG/2 ML Ampul IV (10:36)
--- NOTE | 2025-02-14 11:01 | OP.PCM_ITS ---
Procedures Musculoskeletal [id number]: Other Procedure See Report Operative Report (Standard) Operative Information Date of Procedure: 02/14/25 Pre-Operative Diagnosis: L3-S1 stenosis with neurogenic claudication Post-Operative Diagnosis: Same Surgery/Procedure Performed: L3-S1 laminectomy, partial facetectomy, decompression immigration associate: Yes Gyroscopic Engineering Technician: Lacey Solo Tasks completed by payroll and benefits assistant: Closing, Dissecting tissue, Removing tissue, Hemostasis: Electrocautery and Retracting Type of Anesthesia: General RN Documented Start/Stop Times: Operation Date: 02/14/25 07:30 Case Time Into Pre-Op 02/14/25 05:39 Out of Pre-Op 02/14/25 07:32 Anesthesia Start 02/14/25 07:36 Into Room 02/14/25 07:36 Procedure Start 02/14/25 08:13 Procedure End 02/14/25 10:58 Procedure Start Time: 08:13 Procedure Stop Time: 10:58 Select all DRAINS/GRAFTS/IMPLANTS that apply: None Estimated Blood Loss: 60 cc Specimen collected: No Description of surgery: Preoperative diagnosis: L3-S1 central lateral recess stenosis bilateral, neurogenic claudication Postoperative diagnosis: Same Name of procedure: L3-S1 open laminectomy, partial facetectomy, decompression L3-4 laminectomy 27670 L4-5 laminectomy 45430 L5-S1 laminectomy 04176 Attending Surgeon: Dr. Jamaal Herrera Estimated blood loss: 60 mL Anesthesia: General Indications: Patient is a 74-year-old lady who presented with low back pain and right worse than left lower extremity radiation, with difficulty walking distances and neurogenic claudication. MRI revealed degenerative scoliosis with L3-S1 stenosis centrally as well as lateral recess. All options of treatment were discussed which included continued nonoperative treatment measures like rest physical therapy, injections. After prolonged nonsurgical treatment, patient requested surgical intervention for laminectomy. All risks and benefits associated with the procedure were explained to the patient. The risks include but are not limited to infection, bleeding, injury to nerves and vessels, persistent paresthesia, incidental dural tear, recurrent disc herniation, spinal instability and need for fusion or other procedures in future, persistent pain, persistent weakness and numbness, etc. Procedure: The patient was identified in the preoperative holding suite using Unique patient identifiers. Skin was marked, consent was reviewed, and all questions were answered. The patient was then brought back to the operative room. A surgical timeout was performed to make sure correct procedure was being done on the correct patient and all operative room staff were on the same page. General endotracheal anesthesia was then given to the patient. The patient was then turned prone onto a Timur table over chest and hip pads. The back was prepped and draped in usual fashion. Preoperative antibiotic was given. A final timeout was then again done just before starting the procedure. An 18-gauge spinal needle was inserted and level was identified. An incision was then carried out length in the midline. Bovie was utilized to dissect through the subcutaneous tissue up to the fascia. The fascia was bovied at the spinous process. Subperiosteal dissection was carried out along the both side of the spinous process and the lamina. This dissection was stopped at the level of the medial capsule of the facet joint. Lateral edge of the pars was also identified. A Coos was then placed under the inferior edge of the lamina and a C-arm lateral view was repeated. The level was confirmed to be the L5-S1 interspace. A Davila retractor of appropriate depth was then placed to provide retraction throughout the remainder of the surgery. Because of the length of the incision another cerebellar retractor was added in addition to the Davila retractor for adequate retraction. A bone cutter was used to remove the spinous process at L5, L4 and L3. Misonix bone scalpel was then utilized to first create a score along the area of the laminectomy from L3 to to S1 interspaces. Care was taken to preserve at least 1 cm of bone from the lateral border of the pars. The bone scalpel was then advanced to perform the cuts along this score. The lamina was then removed with the help of rongeurs. The flavum was utilized to protect the dura and superior articular process was carefully from the flavum. Partial medial facetectomy was performed to provide adequate lateral recess decompression. All of the flavum was eventually removed. Once decompression was adequately assessed with Zoltan in both S1, L5, L4, L3 foramina bilaterally, irrigation was done with normal saline. Valsalva maneuver up to 40 mmHg pressure sustained was then done by anesthesia for a few seconds to confirm no dural leak. Irrisept was kept in the wound for 1 minute and then rinsed with saline. A small piece of Gelfoam was then placed over the bony window. The retractor was then removed. And closure was done in layers, 1 Vicryl for the deep fascia, 2-0 Vicryl for subcutaneous tissue, and connor for the skin. The deep fascial layer was closed in a watertight fashion with interrupted 1 Vicryl augmented with #0 stratafix. Prevena incisional wound VAC was then placed for negative suction dressing. The patient was then turned supine onto a hospital bed. The patient was extubated and taken to PACU in stable condition. The patient tolerated the procedure well and no complications occurred. Estimated blood loss for the entire surgery was 60 mL. No instrumentation was utilized in this case. No dural tear occurred in this case. I was present for the entirety of the case and performed the surgery myself. Enterprise Resource Analyst Lacey Solo PA-C. My physician orthotic assistant was a vital part of this case. They were important in appropriate retraction during the case, and protection of soft tissues during the procedure. Their intimate knowledge of the case and my steps aided in safe and expedient completion of the procedure as well as appropriate position of the patient during the surgery. They were also vital in assisting with closure under my direct supervision. Surgical Findings: See operative note Complications Complications: No
--- NOTE | 2025-02-14 11:16 | PCM.POST.ANE ---
Anesthesia: Postop Eval I Current Vital Signs Temperature: 97.8 F Pulse Rate: 78 Blood Pressure: 153/74 Respiratory Rate: 12 Pulse Ox: 97 Oxygen Delivery Method: Nasal Cannula Oxygen Flow Rate (L/min): 3 Assessment Airway patent: Yes Spontaneous unlabored respirations: Yes Mental status: Awake and Calm nausea: No Vomiting: No Anesthesia Complication: No Fluid Hydration Crystalloid volume administer (ml): 1,400 Total IV fluid infused: 1,400 Progress Note Anesthesia document: Postop Eval 1 completed: Yes
--- NOTE | 2025-02-14 13:56 | PN_ITS ---
Subjective Subjective Patient is a 74-year-old female with a past medical history as outlined was admitted to the service of spine surgery for L2-L3 laminectomy on account of severe spinal stenosis. Today's postop day 0. Hospitalist service was consulted for medical management. Patient was seen in the recovery unit with her daughter by her bedside. She was lying comfortably in bed and had no complaints. She did not have any pain at all. She denied any shortness of breath, fever, chills, cough, palpitations, nausea vomiting or any other symptoms. Review of systems otherwise negative. She has remained hemodynamically stable. Objective Data Objective Data Vital Signs: Vital Signs Temp Pulse Resp BP Pulse Ox O2 Del Method O2 Flow Rate 97.1 F L 82 16 144/73 H 98 Nasal Cannula 4 02/14/25 12:55 02/14/25 12:55 02/14/25 12:55 02/14/25 12:55 02/14/25 12:55 02/14/25 12:55 02/14/25 12:55 FiO2 57 02/14/25 11:45 Oxygen Flow Rate (L/min) 4 Oxygen Delivery Method Nasal Cannula Weight: 294 lb Body Mass Index (BMI) 52.0 Intake & Output: Intake and Output for Last 24 Hours 02/12/25 02/13/25 02/14/25 23:59 23:59 23:59 Intake Total 1000 / 1000 Output Total 60 / 60 Balance 940 / 940 Lab / Micro Data Labs: Laboratory Results - last 24 hr 02/14/25 05:54: POC Glucose 94 Micro: Microbiology 02/02/25 13:21 Swab (Method) Nasal Screen MRSA/MSSA - Final Physical Exam Const alert, oriented x3 and no apparent distress Constitutional Narrative: class III obesity HEENT normocephalic, head/scalp atraumatic and moist oral mucous membranes Eyes EOMs intact bilaterally Neck supple and no JVD Lymph Lymphatic: no lymphedema noted Resp normal respiratory effort, normal air movement and clear to auscultation bilaterally Resp Narrative: on room air. Cardio regular rate, regular rhythm, S1 normal heart sound, S2 normal heart sound and no murmurs GI normal to inspection, nondistended, normoactive bowel sounds, soft to palpation, non-tender and non-distended Extremity normal capillary refill, no clubbing, cyanosis or edema and no calf tenderness General Extremity: no tenderness to palpation of joints or extremities Skin Skin Narrative: intact wound vac over surgical site on lower back General Skin Exam: no breakdown Neuro no focal motor deficits and no sensory deficits noted Motor Exam: general weakness Psych thought process normal and cooperative Appearance: appropriate Assessment & Plan Assessment/Plan (1) Hypertension: (2) Lumbar stenosis with neurogenic claudication: PLAN: Plan #Lumbar stenosis s/p L3-L4 laminectomy * today is POD 1 * PT/OT on board. * management as per primary service spine surgery * incentive spirometry * fall precautions * #Hypertension: On lisinopril and spironolactone #MARCELLE; on CPAP qhs #Class III obesity: BMI is 52.1. Complicates acute care, expected recovery and prognosis. #GERD: on PPI #History of rheumatoid arthritis: on hydroxychloroquine. #History of anxiety: On fluoxetine DVT prophylaxis: as per primary service orthopedics Thank you for the courtesy of the consult. Hospitalist service will continue to follow with you. Charges/Coding Visit Charges Inpatient E&M: 99257 Subs Hosp L2
[2025-02-14] MEDS: Ensure Surgery 237 ML LIQUID PO (15:15)
[2025-02-14] MEDS: Cefazolin 3 GM in 0.9% Normal Saline (100mL Bag) 100 ML IV (16:55)
[2025-02-14] MEDS: 0.9% Saline Lock 10 ML Syringe IV (18:50)
--- NOTE | 2025-02-14 21:59 | POSTOPAN2_ITS ---
Anesthesia Postop Eval I Sum Postop Eval Completion status Anesthesia document: Postop Eval 1 completed: Yes Anesthesia Postop Eval I Summary Anesthesia Postop Eval I Summary: Anesthesia Postop Eval I: Assessment Summary Airway patent Yes 02/14/25 11:17 WET PROCESS OPERATOR.SHOF Spontaneous unlabored Yes 02/14/25 11:17 WET PROCESS OPERATOR.SHOF respirations Mental status Awake,Calm 02/14/25 11:17 WET PROCESS OPERATOR.SHOF nausea No 02/14/25 11:17 WET PROCESS OPERATOR.SHOF Vomiting No 02/14/25 11:17 WET PROCESS OPERATOR.SHOF Anesthesia Postop Eval I: Fluid Summary Crystalloid volume administer 1,400 02/14/25 11:17 WET PROCESS OPERATOR.SHOF (ml) Colloids volume administered ( ml) Blood Product volume administered (ml) Total IV fluid infused 1,400 02/14/25 11:17 WET PROCESS OPERATOR.SHOF Anesthesia Postop Eval I: Summary Notes Anesthesia Complication No 02/14/25 11:17 WET PROCESS OPERATOR.SHOF Anesthesia Complication Comment: Post-operative progress note Anesthesia: Postop Eval II Evaluation Mental status: Awake and Calm Pain Level: 3 nausea: No Vomiting: No Complications Anesthesia Complication: No
--- NOTE | 2025-02-14 21:59 | PCM.POSTANE2 ---
Anesthesia Postop Eval I Sum Postop Eval Completion status Anesthesia document: Postop Eval 1 completed: Yes Anesthesia Postop Eval I Summary Anesthesia Postop Eval I Summary: Anesthesia Postop Eval I: Assessment Summary Airway patent Yes 02/14/25 11:17 OPERATIONS SCHEDULER.SHOF Spontaneous unlabored Yes 02/14/25 11:17 OPERATIONS SCHEDULER.SHOF respirations Mental status Awake,Calm 02/14/25 11:17 OPERATIONS SCHEDULER.SHOF nausea No 02/14/25 11:17 OPERATIONS SCHEDULER.SHOF Vomiting No 02/14/25 11:17 OPERATIONS SCHEDULER.SHOF Anesthesia Postop Eval I: Fluid Summary Crystalloid volume administer 1,400 02/14/25 11:17 OPERATIONS SCHEDULER.SHOF (ml) Colloids volume administered ( ml) Blood Product volume administered (ml) Total IV fluid infused 1,400 02/14/25 11:17 OPERATIONS SCHEDULER.SHOF Anesthesia Postop Eval I: Summary Notes Anesthesia Complication No 02/14/25 11:17 OPERATIONS SCHEDULER.SHOF Anesthesia Complication Comment: Post-operative progress note Anesthesia: Postop Eval II Evaluation Mental status: Awake and Calm Pain Level: 3 nausea: No Vomiting: No Complications Anesthesia Complication: No
[2025-02-14] MEDS: Senna/Docusate Sodium 1 Tablet 2 TABLET PO (22:56)
[2025-02-15] MEDS: 0.9% Saline Lock 10 ML Syringe IV (00:17)
[2025-02-15] MEDS: Cefazolin 3 GM in 0.9% Normal Saline (100mL Bag) 100 ML IV (00:17)
[2025-02-15 03:06] VITALS: BP 107/61; PULSE 77; RESP 18; TEMP 36.7; O2SAT 96
[2025-02-15 06:51] VITALS: BP 108/83; PULSE 80; RESP 16; TEMP 36.4; O2SAT 98
[2025-02-15 07:32] LABS: Hematocrit 33.8 % (37-47); Hemoglobin 10.9 g/dL (12.0-15.0); Immature Granulocytes Count 0.040 X10^3/uL (0.0-0.0); Mean Corp Hgb Conc 32.2 g/dL (32-36); Mean Corpuscular Volume 100.9 fL (81-99); Mean Platelet Vol. 9.5 fl (6.2-12.0); NRBC Flagged by Analyzer 0 % (0-5); Platelet Count 277 K/mm3 (150-450); RBC Distribution Width CV 12.3 % (11.6-14.6); RBC Distribution Width SD 45.9 fl (35.1-43.9); Red Blood Count 3.35 M/mm3 (4.2-5.4); White Blood Count 8.5 K/mm3 (4.4-11.0)
[2025-02-15 08:05] VITALS: BP 109/61; PULSE 77; RESP 17; TEMP 36.4; O2SAT 96
[2025-02-15 08:05] LABS: Anion Gap 9 (5-15); BUN 31 mg/dL (4-19); BUN/Creat Ratio 27.2 RATIO (10-20); Calcium,Total 8.2 mg/dL (7.6-11.0); Carbon Dioxide 25.2 mmol/L (21.0-32.0); Chloride 96 mmol/L (98-108); Estimated Creatinine Clearance 61.25 ml/min (50-250); Glucose 127 mg/dL (70-99); Potassium 4.3 mmol/L (3.3-5.1)
[2025-02-15] MEDS: Senna/Docusate Sodium 1 Tablet 2 TABLET PO (09:17)
--- NOTE | 2025-02-15 09:29 | PN_ITS ---
Subjective Subjective Patient seen and examined with her nurse by her bedside. She had no active complaints. Review of systems is otherwise negative. Labs and vitals reviewed. She has remained hemodynamically stable. Objective Data Objective Data Vital Signs: Vital Signs Temp Pulse Resp BP Pulse Ox O2 Del Method O2 Flow Rate 97.6 F L 77 17 109/61 96 CPAP 4 02/15/25 08:05 02/15/25 08:05 02/15/25 08:05 02/15/25 08:05 02/15/25 08:05 02/15/25 08:05 02/14/25 12:55 FiO2 57 02/14/25 11:45 Oxygen Flow Rate (L/min) 4 Oxygen Delivery Method CPAP Weight: 301 lb 14.4 oz Body Mass Index (BMI) 53.4 Intake & Output: Intake and Output for Last 24 Hours 02/13/25 02/14/25 02/15/25 23:59 23:59 23:59 Intake Total 1565 / 1565 430.5 / 430.5 Output Total 60 / 60 Balance 1505 / 1505 430.5 / 430.5 Lab / Micro Data 02/15/25 07:04 02/15/25 07:04 Labs: Laboratory Results - last 24 hr 02/15/25 07:04: WBC 8.5, RBC 3.35 L, Hgb 10.9 L, Hct 33.8 L, MCV 100.9 H, MCH 32.5 H, MCHC 32.2, RDW Std Deviation 45.9 H, RDW Coeff of Jamie 12.3, Plt Count 277, MPV 9.5, Immature Gran % (Auto) 0.500, Neut % (Auto) 74.3 H, Lymph % (Auto) 15.0 L, [place] % (Auto) 9.3, Eos % (Auto) 0.8, Baso % (Auto) 0.1, Absolute Neuts (auto) 6.3, Absolute Lymphs (auto) 1.27, Nucleated RBC % 0, Sodium 130 L, Potassium 4.3, Chloride 96 L, Carbon Dioxide 25.2, Anion Gap 9, BUN 31 H, Creatinine 1.13, Estim Creat Clear Calc 61.25, Est GFR (MDRD) Non-Af 52 L, B UN/Creatinine Ratio 27.2 H, Glucose 127 H, Calcium 8.2 Micro: Microbiology 02/02/25 13:21 Swab (Method) Nasal Screen MRSA/MSSA - Final Physical Exam Const alert, oriented x3 and no apparent distress Constitutional Narrative: class III obesity HEENT normocephalic, head/scalp atraumatic and moist oral mucous membranes Eyes EOMs intact bilaterally Neck supple and no JVD Lymph Lymphatic: no lymphedema noted Resp normal respiratory effort, normal air movement and clear to auscultation bilaterally Resp Narrative: on room air. Cardio regular rate, regular rhythm, S1 normal heart sound, S2 normal heart sound and no murmurs GI normal to inspection, nondistended, normoactive bowel sounds, soft to palpation, non-tender and non-distended Extremity normal capillary refill, no clubbing, cyanosis or edema and no calf tenderness General Extremity: no tenderness to palpation of joints or extremities Skin Skin Narrative: intact wound vac over surgical site on lower back Neuro no focal motor deficits and no sensory deficits noted Motor Exam: general weakness Psych thought process normal and cooperative Appearance: appropriate Assessment & Plan Assessment/Plan (1) Hypertension: (2) Lumbar stenosis with neurogenic claudication: PLAN: Plan #Lumbar stenosis s/p L3-L4 laminectomy * today is POD 2. * PT/OT on board. * management as per primary service spine surgery * incentive spirometry * fall precautions * * #Acute on chronic Hyponatremia: Na is 130 today. Was 138 yesterday. Has had hyponatremia in the past. Will benefit from oral hydration and if it does not improve, may need IVF. #Hypertension: On lisinopril and spironolactone #MARCELLE; on CPAP qhs #Class III obesity: BMI is 53.5 today. Complicates acute care, expected recovery and prognosis. #GERD: on PPI #History of rheumatoid arthritis: on hydroxychloroquine. #History of anxiety: On fluoxetine DVT prophylaxis: as per primary service orthopedics Disposition: patient stable for dc from hospitalist standpoint. Charges/Coding Visit Charges Inpatient E&M: 70874 Subs Hosp L2
--- NOTE | 2025-02-15 10:54 | DCINST_ITS ---
Discharge Instructions DC O2, CPAP, BIPAP needs Home O2 Discharge instructions: No Follow Up Care Test Results: Test results from this visit will be discussed in further detail at your follow- up appointment, if applicable. Discharge Plan Admission Admit Date/Time: 02/14/25 11:07 Attending Provider: Jamaal Herrera Primary Care Provider: Braulio Ca Consulting Providers: Jose Maria Link; Ramone Hewitt; Devorah Martini; Ivette Muhammad; Dimitri Dominique; Dimitri Conner; Lacey Clancy; Lamin Miranda; Mohini Disla; James Almeida; Kathy Smith; David Martinez; Italia Moeller; Ashvin Garcia; Robb Carmona; Mg Pulido; Cathy Pierre; Anthony Connor; Patience Rosas; Arik Blake PA Instructions Patient Instructions: Laminectomy Dc Additional Instructions / Restrictions: Keep Tegaderm and gauze clean and dry. If Tegaderm is intact, okay to shower. After 5 days remove Tegaderm and gauze and cover with a Band-Aid. Replace Band- Aid daily thereafter. No bending lifting or twisting. Follow-up in clinic in 2 weeks. Leave the wound VAC on for 7 days. After 7 days you can take it off and throw it away. Cover the area with a Band-Aid. Do not submerge the incision in water. Showering is okay. Discharge Orders/Prescriptions Prescriptions: New acetaminophen 500 mg Tablet 500 mg PO Q8 Qty: 30 0RF hydrocodone-acetaminophen 5-325 mg Tablet 1 tab PO Q6H PRN (Reason: pain) 7 Days Qty: 28 0RF meloxicam 15 mg Tablet 15 mg PO DAILY Qty: 30 0RF Rx Instructions: Take once a day methocarbamol 500 mg Tablet 750 mg PO TID PRN (Reason: Pain/spasms) Qty: 30 0RF sennosides-docusate sodium [Stimulant Laxative Plus] 8.6-50 mg Tablet 2 tab PO BID PRN (Reason: constipation) Qty: 14 0RF Continued cholecalciferol (vitamin D3) 400 unit capsule 400 unit PO QDAY glucosamine-chondroitin [Osteo Bi-Flex] 250-200 mg tablet 1 tab PO QAM omeprazole 40 mg capsule,delayed release(DR/EC) 40 mg PO QDAY spironolactone 25 mg tablet 25 mg PO QDAY hydroxychloroquine 200 mg tablet 200 mg PO BID mirabegron 50 mg tablet extended release 24 hr 50 mg PO QDAY fluoxetine 40 MG capsule 40 mg PO DAILY ascorbic acid (vitamin C) 500 MG tablet 500 mg PO DAILY@0800 lisinopril 10 MG tablet 10 mg PO DAILY zolpidem 10 MG tablet 10 mg PO QHS multivitamin with folic acid 1 TABLET tablet 1 tab PO DAILY calcium carbonate 600 mg calcium (1,500 mg) tablet 600 mg PO DAILY conjugated estrogens 0.625 mg/gram cream 0.625 mg vaginal SUWE Rx Instructions: off 5 days; repeat cycle pregabalin 50 mg capsule 50 mg PO TID montelukast [Singulair] 10 mg tablet 10 mg PO QHS Held aspirin [Adult Low Dose Aspirin] 81 mg tablet,delayed release (DR/EC) 81 mg PO DAILY Hold Instructions: Resume on 02/16/25. Discontinued meloxicam 15 mg tablet 15 mg PO QDAY acetaminophen [Tylenol Arthritis Pain] 650 mg tablet extended release 650 mg PO Q12H cyclobenzaprine 10 MG tablet 10 mg PO QHS Referrals / Follow Up: Braulio Ca MD [Primary Care Provider, Family Practice] Disposition Disposition (needs filled in before D/C Order can be placed): Home, Self Care
--- NOTE | 2025-02-15 10:59 | PN.ORTHO_ITS ---
Subjective Subjective The patient is postop day 1 L3-S1 laminectomy. The patient's pain has been well-controlled. The patient was seen at the bedside today. The patient has been up and walking without any pain. The patient says that she has already noticed an improvement in her walking tolerance after the surgery. She is very happy so far with the results. The patient did have some complaints of shoulder pain in the PACU after surgery yesterday. She says that this pain has resolved. PT/OT on board, cleared for home discharge. Wound VAC is intact, reports no significant drainage output. Seen with Dr. Herrera. Objective Data Objective Data Vital Signs: Vital Signs Temp Pulse Resp BP Pulse Ox O2 Del Method O2 Flow Rate 97.6 F L 77 17 109/61 96 Room Air 4 02/15/25 08:05 02/15/25 08:05 02/15/25 08:05 02/15/25 08:05 02/15/25 08:05 02/15/25 08:05 02/14/25 12:55 FiO2 57 02/14/25 11:45 Oxygen Flow Rate (L/min) 4 Oxygen Delivery Method Room Air Weight: 301 lb 14.4 oz Body Mass Index (BMI) 53.4 Intake & Output: Intake and Output for Last 24 Hours 02/13/25 02/14/25 02/15/25 23:59 23:59 23:59 Intake Total 1565 / 1565 430.5 / 430.5 Output Total 60 / 60 Balance 1505 / 1505 430.5 / 430.5 Lab / Micro Data 02/15/25 07:04 02/15/25 07:04 Labs: Laboratory Results - last 24 hr 02/15/25 07:04: WBC 8.5, RBC 3.35 L, Hgb 10.9 L, Hct 33.8 L, MCV 100.9 H, MCH 32.5 H, MCHC 32.2, RDW Std Deviation 45.9 H, RDW Coeff of Jamie 12.3, Plt Count 277, MPV 9.5, Immature Gran % (Auto) 0.500, Neut % (Auto) 74.3 H, Lymph % (Auto) 15.0 L, [place] % (Auto) 9.3, Eos % (Auto) 0.8, Baso % (Auto) 0.1, Absolute Neuts (auto) 6.3, Absolute Lymphs (auto) 1.27, Nucleated RBC % 0, Sodium 130 L, Potassium 4.3, Chloride 96 L, Carbon Dioxide 25.2, Anion Gap 9, BUN 31 H, Creatinine 1.13, Estim Creat Clear Calc 61.25, Est GFR (MDRD) Non-Af 52 L, B UN/Creatinine Ratio 27.2 H, Glucose 127 H, Calcium 8.2 Micro: Microbiology 02/02/25 13:21 Swab (Method) Nasal Screen MRSA/MSSA - Final Radiography Diagnostic Testing: Radiology Impression Lumbar Spine X-Ray 02/14/25 10:00 IMPRESSION: Fluoro was provided. Reading Location: [facility] Physical Exam Narrative Neurological examination of the lower extremity shows 5X5 power. Normal sensation across all dermatomes. Physical examination of the back shows an intact Prevena wound VAC. Const alert, oriented x3 and no apparent distress Assessment & Plan Assessment/Plan (1) Status post laminectomy: PLAN: Plan Postop day 1 L3-S1 laminectomy. PT/OT okay for home discharge. Reviewed restrictions and no bending, lifting, twisting. Prevena wound VAC will stay on for 7 days before being removed. Home-going meds include [place], acetaminophen, methocarbamol, meloxicam, senna. OARRS reviewed. She will follow-up with us in the clinic in 2 weeks. Sooner if needed for any issues. Patient is in agreement to the plan.
--- NOTE | 2025-02-15 11:30 | CASEMGMT ---
RN?CM?ASSESSMENT ? RN?CM?to room to meet with patient for initial transition planning/care coordination?assessment.?RN?CM?introduced self and role at [facility].? Pt voices understanding and consents to?assessment?at this time.? Pt sitting up in chair in no distress at this time.? Pt is A/O at this time and answers all questions appropriately.?? Care providers, pharmacy, and demographics verified/updated at this time. ? Strata: 1 PCP: Dr Ca Specialists: Dr Herrera-pamela. Pt also sees pain mgnt, GI, GEOGRAPHICAL HISTORIAN, urologist, and RA specialist. Preferred Pharmacy: [facility] @ [place]. Would like [id number]. Pharmacy notified. [facility] Prescription Benefit:?Yes LNOK: DaughterAlessandra. Sig other, Inocencio Living Arrangements: Lives in 2-story home w/total of 7 steps to enter. Bedroom and bathroom are on the 2nd floor. No bathroom on main floor. Pt states she has worked w/therapy on steps and feels comfortable navigating them. She has a BSC she will use during the day so she does not have to go up the stairs until going to bed. Transportation:?Pt drives. Daughter will take her home @ [place]. DME: States has the following DME:?BSC, walker, rollator, grab bars, CPAP ?Pt states no need for further DME at this time.? HHC/SNF: No hx of either. Has done OP therapy in the past. Pt wishes to return home and states has no concerns with going home. She is aware of importance of walking. She has a f/u appt scheduled w/Dr Herrera Feb 27 @ 1:30 PM and another one scheduled for Mar 27 @ 1:30 PM. PLAN:??Home ? Lore BSN?RN?CM ?
--- NOTE | 2025-02-15 14:22 | PHA.DC.COU.R ---
Pharmacy [facility] has performed discharge medication counseling for this patient. The patient was counseled on the following discharge medications and changes in medications for homegoing review. - Acetaminophen 500 mg tablet, Hydrocodone/acetaminophen 5/325 mg tablet, Meloxicam 15 mg tablet, Methocarbamol 500 mg tablet, Sennosides/docusate 8.6/50 mg tablet The Reason for Use, instructions for use, and potential side effects were reviewed for all new medications. The patient's questions regarding all of their medications were answered. The patient was able to verbally demonstrate an understanding of their discharge medications. Medications at Discharge Home Medications ascorbic acid (vitamin C) 500 mg tablet 500 mg PO DAILY@0800 09/16/15 fluoxetine 40 mg capsule 40 mg PO DAILY 09/16/15 lisinopril 10 mg tablet 10 mg PO DAILY 09/16/15 multivitamin with folic acid 400 mcg tablet 1 tab PO DAILY 09/16/15 zolpidem 10 mg tablet 10 mg PO QHS 09/16/15 aspirin 81 mg tablet,delayed release (Adult Low Dose Aspirin) 81 mg PO DAILY 05/17/17 Held on 02/15/25. Instructions: Resume on 02/16/25. cholecalciferol (vitamin D3) 10 mcg (400 unit) capsule 400 unit PO QDAY 05/17/17 glucosamine-chondroitin 250 mg-200 mg tablet (Osteo Bi-Flex) 1 tab PO QAM 05/17/17 hydroxychloroquine 200 mg tablet 200 mg PO BID 05/01/24 mirabegron 50 mg tablet,extended release 24 hr 50 mg PO QDAY 05/01/24 omeprazole 40 mg capsule,delayed release 40 mg PO QDAY 05/01/24 spironolactone 25 mg tablet 25 mg PO QDAY 05/01/24 calcium carbonate 600 mg PO DAILY 01/29/25 conjugated estrogens 0.625 mg/gram vaginal cream 0.625 mg vaginal SUWE 01/29/25 montelukast 10 mg tablet (Singulair) 10 mg PO QHS 01/29/25 pregabalin 50 mg capsule 50 mg PO TID Spinal Stenosis 01/29/25 acetaminophen 500 mg tablet 500 mg PO Q8 #30 tabs 02/15/25 hydrocodone-acetaminophen 5-325mg 5mg-325mg 1 tab PO Q6H PRN pain 7 days #28 tabs 02/15/25 meloxicam 15 mg tablet 15 mg PO DAILY #30 tabs 02/15/25 methocarbamol 500 mg tablet 750 mg (1.5 x 500 mg) PO TID PRN Pain/spasms #30 tabs 02/15/25 sennosides 8.6 mg-docusate sodium 50 mg tablet (Stimulant Laxative Plus) 2 tab PO BID PRN constipation #14 tabs 02/15/25
== END 2025-02-15 13:05 | disposition home or self-care (01) ==
LOC: SDC 14:18 → MS3 14:18
PROVIDERS: Anesthesiology; Student in an Organized Health Care Education/Training Program; Admitting Provider Orthopaedic Surgery Orthopaedic Surgery of the Spine; PCP Family Medicine; Referring Provider Orthopaedic Surgery Orthopaedic Surgery of the Spine; Visit Provider Orthopaedic Surgery Orthopaedic Surgery of the Spine
PROC: (CPT 63030; principal; 2025-02-14 07:00)
DX: M48.062 Spinal stenosis, lumbar region with neurogenic claudication (principal); M06.9 Rheumatoid arthritis, unspecified; E66.813 Obesity, class 3; Z68.43 Body mass index [BMI] 50.0-59.9, adult; M41.56 Other secondary scoliosis, lumbar region; R26.2 Difficulty in walking, not elsewhere classified; E78.00 Pure hypercholesterolemia, unspecified; M51.362 Other intervertebral disc degeneration, lumbar region with discogenic back pain and lower extremity pain; I10 Essential (primary) hypertension; M48.07 Spinal stenosis, lumbosacral region; K21.9 Gastro-esophageal reflux disease without esophagitis; Z79.82 Long term (current) use of aspirin; Z79.899 Other long term (current) drug therapy; E87.1 Hypo-osmolality and hyponatremia; F41.9 Anxiety disorder, unspecified
CPT/HCPCS: 63047; 63048 ×2; 00630; 72100; 76000; 80048; 82962; 85025; 85610; 85730; 86850; 86870; 86900; 86901; 86905; 86920; 86922; 87081; 94668; 96365; 96366; 96375; 97162; 99221; A4216; G0378; J2405